=== PATIENT | female | born 1955 | race Caucasian/White ===

== ENCOUNTER 2019-07-15 10:11 | Observation (INO) | payer MEDICAID, SELFPAY ==
[2019-07-15 10:13] VITALS: BP 148/80; PULSE 69; RESP 18; TEMP 36.7; O2SAT 98; BMI 28.8
--- NOTE | 2019-07-15 10:32 | XRR_ITS ---
PROCEDURE INFORMATION: Exam: XR Chest, 1 View Exam date and time: 07/15/2019 10:54 AM Age: 63 years old Clinical indication: Shortness of breath; Type not specified; Patient HX: SOB, chest pains x 2 days; Additional info: Dyspnea chest pain TECHNIQUE: Imaging protocol: XR of the chest Views: 1 view. COMPARISON: CR Chest 1 [place] [id number] 03/16/2019 1:07 PM FINDINGS: Lungs: Mild interstitial prominence without acute airspace disease. Pleural space: No pleural effusion. Heart/Mediastinum: Cardiac silhouette upper limits of normal. Diaphragm: Asymmetric elevation of the right hemidiaphragm. Vasculature: Ectasia of the thoracic aorta. Bones/joints: Mild scoliosis. XR/XR chest 1V portable [id number] IMPRESSION: No acute airspace or pleural disease.
--- NOTE | 2019-07-15 10:32 | CT_ITS ---
WS: [id number] CT HEAD NONCONTRAST HISTORY: Altered mental status TECHNIQUE: Contiguous axial imaging performed through the brain in 2.5 mm imaging. Bone and soft tiss ue windows. Sagittal and coronal reformats reviewed. All CT scans at [facility] use at ast one of these dose optimization techniques: automated exposure control; mA and/or kV adjustment pe r patient size (includes targeted exams where dose is matched to clinical indication); or iterative r econstruction. DLP: 734.47 mGy.cm COMPARISON: 11/09/2015 and 12/02/2012 No acute intracranial hemorrhage, midline shift or mass effect. Mild atrophy and areas of decreased attenuation are stable in the periventricular and white matter di stribution. No acute area of sulcal effacement or prior recent infarct. Ventricles: Ventricles continue to be mildly dilated as on the prior study. No significant progressi on of disease. As compared to 12/02/2012 there has been a slight progression in the ventriculomegaly. Paranasal sinuses: As visualized are clear. Mastoid air cells: Well pneumatized. Calvarium and scalp: Skull is intact with no soft tissue edema or swelling. CT/CT head wo con* [id number] IMPRESSION: 1. Mild atrophy and chronic microvascular ischemic disease is stable. 2. Mild diffuse ventriculomegaly. Stable since 11/09/2015 and mild progression since 12/02/2012.
--- NOTE | 2019-07-15 10:33 | ECG_ITS ---
Measurements Intervals [place] Rate: 65 P: 0 NH: 171 QRS: 8 QRSD: 97 T: 21 QT: 480 QTc: 500 SINUS RHYTHM PROLONGED QT INTERVAL Compared to ECG 03/16/2019 12:57:30 Prolonged QT interval now present Electronically Signed On 07-15-2019 20:26:13 DISPUTE RESOLUTION ANALYST by Anne Marie Musa M.D. [id number]
[2019-07-15 10:43] LABS: Basophils # 0.1 10^3/uL (0.0-0.1); Basophils % 0.6 %; Eosinophils # 0.3 10^3/uL (0.0-0.8); Eosinophils % 2.9 %; Hematocrit 33.7 % (37.0-47.0); Hemoglobin 10.5 g/dL (11.5-15.3); Lymphocytes # 4.2 10^3/uL (0.8-4.8); Lymphocytes % 40.6 %; Mean Corpuscular HGB Conc 31.2 g/dL (30.0-36.0); Mean Corpuscular Hemoglobin 27.1 pg (28.0-34.0); Mean Corpuscular Volume 86.9 fL (81-99); Mean Platelet Volume 11.4 fL (7.4-10.4); Monocytes % 9.8 %; Neutrophils # 4.7 10^3/uL (1.8-7.7); Neutrophils % 45.7 %; Nucleated Red Blood Cells % 0 %; Platelet Count 232 10^3/cmm (130-400); Red Blood Count 3.88 10^6/uL (4.1-5.3); White Blood Count 10.2 10^3/uL (4.0-10.0)
[2019-07-15 10:47] LABS: INR 0.95 (0.8-1.2)
[2019-07-15 10:48] LABS: Partial Thromboplastin Time 29.6 SECONDS (23.9-36.7)
--- NOTE | 2019-07-15 10:51 | ED_ITS ---
HPI - Chest Pain General: Chief Complaint: Chest Pain Stated Complaint: headache.dizziness,sob Time Seen by Provider: 07/15/19 10:13 History of Present Illness: HPI narrative: 63-year-old female comes in generally complaint of not feeling well she has had some diarrhea and been nauseous she denies any hematochezia melena hematemesis or coffee-ground emesis not actually thrown up but she has had a lot of loose stools. She denies dysuria urgency or frequency she has had some right upper quadrant pain and epigastric pain at times radiates up into the chest is not associated with increased activity. She has had some nonproductive cough and very slight jose rtness of breath. Additionally states she is felt very dizzy and at times she is actually had some hallucinations she sees what she describes as critters climbing up the le and on the floor. She denies ever having this before. 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 Onset (ago): day(s) (2) Timing of current episode: episodic Prior episodes: No Onset: during rest and during exertion Pain location: epigastric Pain radiation: none Severity: moderate Quality: aching and heaviness Relieving factors: nothing Exacerbating factors: exertion Context: recent illness Associated symptoms: Reports abdominal pain, dyspnea, nausea and other (Diarrhea); Deny fever(s) or vomiting Review of Systems Const: Reports: chills, body aches, fatigue and malaise; Denies: fever or change in appetite ENMT: Denies: throat pain, ear pain, nasal discharge or nasal congestion Card: Reports: chest pain and shortness of breath on exertion; Denies: edema or shortness of breath when lying down Resp: Reports: shortness of breath and non-productive cough GI: Reports: abdominal pain and nausea; Denies: vomiting, vomiting blood, coffee grounds in vomit, blood in stool or black tarry stool : Denies: flank pain, difficulty urinating, painful urination, urinary frequency or urinary urgency Skin/Breast: Denies: rash or itching PFSH ED PFSH: Statuses (acute, chronic, etc) shown below reflect problem list status as previously entered and may not be historically accurate Medical History Coronary artery disease (Acute) Surgical History History of appendectomy (Acute) History of cholecystectomy (Acute) History of hysterectomy (Acute) S/P percutaneous transluminal angioplasty ([facility]) with stent placement (Acute) Family History Other CAD (coronary artery disease) Social History Smoking and tobacco status: current every day smoker Alcohol intake: never Substance/Drug Use: never Physical Exam Const: COMMON NORMALS: no apparent distress GENERAL APPEARANCE: cooperative and comfortable ORIENTATION/CONSCIOUSNESS: Yes awake, Yes oriented to person, Yes oriented to place and Yes oriented to time HENMT: COMMON NORMALS: normocephalic, head/scalp atraumatic, hearing grossly normal bilaterally, external ears normal, EAC's normal, TM's normal bilaterally, nasal mucous membranes and turbinates normal, moist oral mucous membranes and oropharynx normal HEAD & SCALP: normocephalic and atraumatic NOSE: nasal mucous membranes and turbinates normal EXTERNAL EAR: Yes external ears normal EXTERNAL AUDITORY CANAL: EAC's normal TYMPANIC MEMBRANE: TM's normal bilaterally Eye: COMMON NORMALS: PERRL, EOMs intact bilaterally, conjunctivae normal and no scleral icterus CONJUNCTIVA: Yes conjunctivae normal PUPIL: Yes PERRL Neck/C-Spine: COMMON NORMALS: full ROM, no lymphadenopathy, supple and no JVD Lymph: LYMPHATIC: no lymphadenopathy noted and no lymphedema noted Resp: COMMON NORMALS: normal respiratory effort, no retractions, no use of accessory muscles and clear to auscultation bilaterally AUSCULTATION: clear to auscultation bilaterally Cardio: COMMON NORMALS: no JVD, regular rate, regular rhythm and no murmurs RATE: regular rate RHYTHM: regular rhythm GI: COMMON NORMALS: no hepatosplenomegaly AUSCULTATION: Yes normoactive bowel sounds PALPATION: Yes tender Details: RUQ and other (Epigastrium), No guarding and Yes no hepatosplenomegaly Extremity: COMMON NORMALS: normal to inspection, normal capillary refill, no clubbing, cyanosis or edema, no calf tenderness and no pedal edema Neuro: SENSORIUM/ORIENTATION: Yes oriented to person, Yes oriented to place and Yes oriented to time Skin: COMMON NORMALS: no rashes or lesions noted GENERAL SKIN EXAM: no rashes or lesions noted Course ED course: Patient has mild anemia some altered mental status some vague chest discomfort I think it would be good for her to be observed overnight to see if we can improve some of her mental status with adequate hydration. Discussed Dr. Loya will put her on observation Vital Signs: Vital signs: Vital Signs Temperature 98.0 F 07/16/19 11:20 Pulse Rate 61 07/16/19 11:20 Respiratory Rate 21 H 07/16/19 11:20 Blood Pressure 139/97 07/16/19 11:20 Pulse Oximetry 96 07/16/19 11:20 MDM - Chest Pain Lab Data: Labs: Lab Results 07/15/19 07/15/19 07/15/19 Range/Units 09:45 09:45 09:45 WBC 10.2 H (4.0-10.0) 10^3/ uL RBC 3.88 L (4.1-5.3) 10^6/u L Hgb 10.5 L (11.5-15.3) g/dL Hct 33.7 L (37.0-47.0) % MCV 86.9 (81-99) fL MCH 27.1 L (28.0-34.0) pg MCHC 31.2 (30.0-36.0) g/dL RDW 13.0 (12.1-15.1) % Plt Count 232 (130-400) 10^3/c mm MPV 11.4 H (7.4-10.4) fL Neut % (Auto) 45.7 % Lymph % (Auto) 40.6 % [place] % (Auto) 9.8 % Eos % (Auto) 2.9 % Baso % (Auto) 0.6 % Neut # (Auto) 4.7 (1.8-7.7) 10^3/u L Lymph # (Auto) 4.2 (0.8-4.8) 10^3/u L [place] # (Auto) 1.0 H (0.2-0.9) 10^3/u L Eos # (Auto) 0.3 (0.0-0.8) 10^3/u L Baso # (Auto) 0.1 (0.0-0.1) 10^3/u L Nucleated RBC % (a uto) 0 % Nucleated RBCs # 0.0 /100WBC PT 12.90 (10.5-13.3) SECO NDS INR 0.95 (0.8-1.2) APTT 29.6 (23.9-36.7) SECO NDS Specimen Type Sample Site ABG pH (7.35-7.45) ABG pCO2 (35-45) mmHg ABG pO2 (80.0-100.0) mmH g ABG HCO3 (22-26) mmol/L ABG O2 Saturation ABG Base Excess (-2.0-2.0) mmol/ L Damian Test A-a O2 Gradient (5-10) mmHg Hematocrit (37-47) % Hgb O2 Saturation (95-100) % Carboxyhemoglobin (0.4-20.1) %THgb Methemoglobin (0.4-1.5) % Total Hemoglobin (12-16) g/dL Ionized Calcium (1.1-1.4) mmol/L O2 Delivery Device FiO2 % Business Broker ID Sodium 128 L (136-145) mmol/L Potassium 3.3 L (3.5-5.1) mmol/L Chloride 91 L (98-107) mmol/L Carbon Dioxide 24 (22-29) mmol/L Anion Gap 16.3 (5-19) BUN 13 (8-23) mg/dL Creatinine 0.9 (0.5-0.9) mg/dL GFR Calculation 63.0 L (90-130) mL/min Glucose 422 H (74-106) mg/dL Calcium 9.0 (8.8-10.2) mg/Dl Phosphorus (2.5-4.5) mg/dL Magnesium (1.7-2.3) mg/dL Total Bilirubin 0.2 (0.15-1.2) mg/dL AST 25 (0-32) U/L ALT 29 (0-33) U/L Alkaline Phosphata se 74 (35-105) IU/L Troponin T Baselin e (0-10) ng/mL Troponin T 120 Min [place] (0-10) ng/mL Delta Troponin T (0-10) ABS# Total Protein 8.3 (6.6-8.7) g/dL Albumin 3.7 (3.5-5.2) g/dL Globulin 4.6 (1.3-4.6) g/dL Lipase 76 H (13-60) U/L TSH (0.27-4.20) uIU/ mL Urine Color (Yellow) Urine Appearance (CLEAR) Urine pH (5-7) Ur Specific Gravit y (1.005-1.030) Urine Protein (Negative) Urine Glucose (UA) (Normal) Urine Ketones (Negative) Urine Occult Blood (Negative) Urine Nitrate (Negative) Urine Bilirubin (NEGATIVE) Urine Urobilinogen (Negative) mg/dL Ur Leukocyte Liset ase (Negative) Salicylates < 0.3 L (3-10) mg/dL Urine Opiates Scre en (Negative) ng/mL Acetaminophen < 5.0 L (10-30) ug/mL Ur Barbiturates Sc reen (Negative) ng/mL Ur Phencyclidine S crn (Negative) ng/mL Ur Amphetamines Sc reen (Negative) ng/mL U Benzodiazepines Scrn (Negative) ng/mL Urine Cocaine Scre en (Negative) ng/mL U Marijuana (THC) Screen (Negative) ng/mL Ethyl Alcohol < 10 (0-10) mg/dL 07/15/19 07/15/19 07/15/19 Range/Units 09:45 10:48 10:48 WBC (4.0-10.0) 10^3/ uL RBC (4.1-5.3) 10^6/u L Hgb (11.5-15.3) g/dL Hct (37.0-47.0) % MCV (81-99) fL MCH (28.0-34.0) pg MCHC (30.0-36.0) g/dL RDW (12.1-15.1) % Plt Count (130-400) 10^3/c mm MPV (7.4-10.4) fL Neut % (Auto) % Lymph % (Auto) % [place] % (Auto) % Eos % (Auto) % Baso % (Auto) % Neut # (Auto) (1.8-7.7) 10^3/u L Lymph # (Auto) (0.8-4.8) 10^3/u L [place] # (Auto) (0.2-0.9) 10^3/u L Eos # (Auto) (0.0-0.8) 10^3/u L Baso # (Auto) (0.0-0.1) 10^3/u L Nucleated RBC % (a uto) % Nucleated RBCs # /100WBC PT (10.5-13.3) SECO NDS INR (0.8-1.2) APTT (23.9-36.7) SECO NDS Specimen Type Sample Site ABG pH (7.35-7.45) ABG pCO2 (35-45) mmHg ABG pO2 (80.0-100.0) mmH g ABG HCO3 (22-26) mmol/L ABG O2 Saturation ABG Base Excess (-2.0-2.0) mmol/ L Damian Test A-a O2 Gradient (5-10) mmHg Hematocrit (37-47) % Hgb O2 Saturation (95-100) % Carboxyhemoglobin (0.4-20.1) %THgb Methemoglobin (0.4-1.5) % Total Hemoglobin (12-16) g/dL Ionized Calcium (1.1-1.4) mmol/L O2 Delivery Device FiO2 % Business Broker ID Sodium (136-145) mmol/L Potassium (3.5-5.1) mmol/L Chloride (98-107) mmol/L Carbon Dioxide (22-29) mmol/L Anion Gap (5-19) BUN (8-23) mg/dL Creatinine (0.5-0.9) mg/dL GFR Calculation (90-130) mL/min Glucose (74-106) mg/dL Calcium (8.8-10.2) mg/Dl Phosphorus (2.5-4.5) mg/dL Magnesium (1.7-2.3) mg/dL Total Bilirubin (0.15-1.2) mg/dL AST (0-32) U/L ALT (0-33) U/L Alkaline Phosphata se (35-105) IU/L Troponin T Baselin e 7 (0-10) ng/mL Troponin T 120 Min [place] (0-10) ng/mL Delta Troponin T (0-10) ABS# Total Protein (6.6-8.7) g/dL Albumin (3.5-5.2) g/dL Globulin (1.3-4.6) g/dL Lipase (13-60) U/L TSH (0.27-4.20) uIU/ mL Urine Color Yellow (Yellow) Urine Appearance Clear (CLEAR) Urine pH 6.5 (5-7) Ur Specific Gravit y 1.010 (1.005-1.030) Urine Protein Neg (Negative) Urine Glucose (UA) 4+ H (Normal) Urine Ketones Negative (Negative) Urine Occult Blood Neg (Negative) Urine Nitrate Negative (Negative) Urine Bilirubin Neg (NEGATIVE) Urine Urobilinogen Norm (Negative) mg/dL Ur Leukocyte Liset ase Negative (Negative) Salicylates (3-10) mg/dL Urine Opiates Scre en Negative (Negative) ng/mL Acetaminophen (10-30) ug/mL Ur Barbiturates Sc reen Negative (Negative) ng/mL Ur Phencyclidine S crn Negative (Negative) ng/mL Ur Amphetamines Sc reen Negative (Negative) ng/mL U Benzodiazepines Scrn Negative (Negative) ng/mL Urine Cocaine Scre en Negative (Negative) ng/mL U Marijuana (THC) Screen Negative (Negative) ng/mL Ethyl Alcohol (0-10) mg/dL 07/15/19 07/15/19 07/15/19 Range/Units 11:30 11:30 12:06 WBC (4.0-10.0) 10^3/ uL RBC (4.1-5.3) 10^6/u L Hgb (11.5-15.3) g/dL Hct (37.0-47.0) % MCV (81-99) fL MCH (28.0-34.0) pg MCHC (30.0-36.0) g/dL RDW (12.1-15.1) % Plt Count (130-400) 10^3/c mm MPV (7.4-10.4) fL Neut % (Auto) % Lymph % (Auto) % [place] % (Auto) % Eos % (Auto) % Baso % (Auto) % Neut # (Auto) (1.8-7.7) 10^3/u L Lymph # (Auto) (0.8-4.8) 10^3/u L [place] # (Auto) (0.2-0.9) 10^3/u L Eos # (Auto) (0.0-0.8) 10^3/u L Baso # (Auto) (0.0-0.1) 10^3/u L Nucleated RBC % (a uto) % Nucleated RBCs # /100WBC PT (10.5-13.3) SECO NDS INR (0.8-1.2) APTT (23.9-36.7) SECO NDS Specimen Type Arterial Sample Site Radial, left ABG pH 7.42 (7.35-7.45) ABG pCO2 36.1 (35-45) mmHg ABG pO2 81.5 (80.0-100.0) mmH g ABG HCO3 23.6 (22-26) mmol/L ABG O2 Saturation 96.2 ABG Base Excess -0.6 (-2.0-2.0) mmol/ L Damian Test Pos A-a O2 Gradient 22.6 H (5-10) mmHg Hematocrit 34.7 L (37-47) % Hgb O2 Saturation 95.0 (95-100) % Carboxyhemoglobin 0.7 (0.4-20.1) %THgb Methemoglobin 0.6 (0.4-1.5) % Total Hemoglobin 11.3 L (12-16) g/dL Ionized Calcium 1.1 (1.1-1.4) mmol/L O2 Delivery Device Room air FiO2 21.0 % Business Broker ID duner Sodium 137.0 (136-145) mmol/L Potassium 3.8 (3.5-5.1) mmol/L Chloride (98-107) mmol/L Carbon Dioxide (22-29) mmol/L Anion Gap (5-19) BUN (8-23) mg/dL Creatinine (0.5-0.9) mg/dL GFR Calculation (90-130) mL/min Glucose 305.0 H (74-106) mg/dL Calcium (8.8-10.2) mg/Dl Phosphorus 2.5 (2.5-4.5) mg/dL Magnesium 1.8 (1.7-2.3) mg/dL Total Bilirubin (0.15-1.2) mg/dL AST (0-32) U/L ALT (0-33) U/L Alkaline Phosphata se (35-105) IU/L Troponin T Baselin e (0-10) ng/mL Troponin T 120 Min [place] 6.18 (0-10) ng/mL Delta Troponin T -0.82 L (0-10) ABS# Total Protein (6.6-8.7) g/dL Albumin (3.5-5.2) g/dL Globulin (1.3-4.6) g/dL Lipase (13-60) U/L TSH 3.47 (0.27-4.20) uIU/ mL Urine Color (Yellow) Urine Appearance (CLEAR) Urine pH (5-7) Ur Specific Gravit y (1.005-1.030) Urine Protein (Negative) Urine Glucose (UA) (Normal) Urine Ketones (Negative) Urine Occult Blood (Negative) Urine Nitrate (Negative) Urine Bilirubin (NEGATIVE) Urine Urobilinogen (Negative) mg/dL Ur Leukocyte Liset ase (Negative) Salicylates (3-10) mg/dL Urine Opiates Scre en (Negative) ng/mL Acetaminophen (10-30) ug/mL Ur Barbiturates Sc reen (Negative) ng/mL Ur Phencyclidine S crn (Negative) ng/mL Ur Amphetamines Sc reen (Negative) ng/mL U Benzodiazepines Scrn (Negative) ng/mL Urine Cocaine Scre en (Negative) ng/mL U Marijuana (THC) Screen (Negative) ng/mL Ethyl Alcohol (0-10) mg/dL Imaging Data^: CXR: Radiologist's impression: Exam: XR Chest, 1 View Exam date and time: 07/15/2019 10:54 AM Age: 63 years old Clinical indication: Shortness of breath; Type not specified; Patient HX: SOB, chest pains x 2 days; Additional info: Dyspnea chest pain TECHNIQUE: Imaging protocol: XR of the chest Views: 1 view. COMPARISON: CR Chest 1 [place] [id number] 03/16/2019 1:07 PM FINDINGS: Lungs: Mild interstitial prominence without acute airspace disease. Pleural space: No pleural effusion. Heart/Mediastinum: Cardiac silhouette upper limits of normal. Diaphragm: Asymmetric elevation of the right hemidiaphragm. Vasculature: Ectasia of the thoracic aorta. Bones/joints: Mild scoliosis. XR/XR chest 1V portable [id number] IMPRESSION: No acute airspace or pleural disease. Dictated By:Fortino Michelle MD Discharge Plan Discharge Patient Disposition: Admitted As Inpatient Admit Provider: Ollie Aazr Clinical Impression: AMS (altered mental status), Hypertension, COPD (chronic obstructive pulmonary disease), Depression with anxiety, Type 2 diabetes mellitus, Atypical chest pain Condition: Stable Interventions: ED Discharge Assessment Last Done: 07/15/19 17:52 Discharge Date/Time: 07/15/19 18:46 Coding Level of Care Code ED Biscuit Maker for Chg Fwd Exam Problem Focused
[2019-07-15 10:55] LABS: Alanine Aminotransferase 29 U/L (0-33); Albumin Level 3.7 g/dL (3.5-5.2); Alkaline Phosphatase 74 IU/L (35-105); Anion Gap 16.3 (5-19); Aspartate Amino Transferase 25 U/L (0-32); Blood Urea Nitrogen 13 mg/dL (8-23); Carbon Dioxide 24 mmol/L (22-29); Chloride 91 mmol/L (98-107); Globulin 4.6 g/dL (1.3-4.6); Glucose 422 mg/dL (74-106); Lipase 76 U/L (13-60); Potassium 3.3 mmol/L (3.5-5.1); Sodium 128 mmol/L (136-145); Total Bilirubin 0.2 mg/dL (0.15-1.2); Total Protein 8.3 g/dL (6.6-8.7)
[2019-07-15 10:56] LABS: Add Urine Microscopic? NO
[2019-07-15 10:57] LABS: Troponin(5th) Baseline 7 ng/mL (0-10)
[2019-07-15 11:03] LABS: Acetaminophen < 5.0 ug/mL (10-30); Alcohol Level < 10 mg/dL (0-10); Salicylate < 0.3 mg/dL (3-10)
[2019-07-15 11:26] LABS: Bilirubin Urine Neg (NEGATIVE); Blood Urine Neg (Negative); Glucose Urine UA 4+ (Normal); Ketones Urine Negative (Negative); Leukocyte Esterase Urine Negative (Negative); Nitrate Urine Negative (Negative); Protein Urine Neg (Negative); Urine Appearance Clear (CLEAR); Urine Color Yellow (Yellow); Urobilinogen Urine Norm (Negative); pH Urine 6.5 (5-7)
[2019-07-15 12:16] LABS: ABG PCO2 36.1 mmHg (35-45); ABG PH Result 7.42 (7.35-7.45); Alveolar-Arterial Oxygen Gradi 22.6 mmHg (5-10); Arterial Blood Gas Hematocrit 34.7 % (37-47); Base Excess ABG -0.6 mmol/L (-2.0-2.0); Blood Gas Allen Test Pos; Blood Gas Sample Site Radial, left; Blood Gas Sample Type Arterial; Carboxyhemoglobin 0.7 %THgb (0.4-20.1); HCO3 ABG 23.6 mmol/L (22-26); Ionized Calcium Level - ABG 1.1 mmol/L (1.1-1.4); Methemoglobin 0.6 % (0.4-1.5); Oxygen Device ROOM AIR; Oxygen Saturation ABG 96.2; PO2 ABG 81.5 mmHg (80.0-100.0); Potassium Level - ABG 3.8 mmol/L (3.5-5.0); Total Hemoglobin 11.3 g/dL (12-16)
--- NOTE | 2019-07-15 12:33 | ECG_ITS ---
Measurements Intervals [place] Rate: 63 P: 7 ND: 160 QRS: 24 QRSD: 109 T: 44 QT: 472 QTc: 483 SINUS RHYTHM PROLONGED QT INTERVAL Compared to ECG 03/16/2019 12:57:30 Prolonged QT interval now present Electronically Signed On 07-15-2019 20:35:29 VEHICLE SAFETY INSPECTOR by Anne Marie Musa M.D. [id number]
[2019-07-15 12:53] LABS: Amphetamines Screen Urine Negative (Negative); Barbiturates Screen Urine Negative (Negative); Benzodiazepines Screen Urine Negative (Negative)
[2019-07-15 12:54] LABS: Cocaine Screen Urine Negative (Negative); Opiate Screen Urine Negative (Negative); PCP Screen Urine Negative (Negative)
[2019-07-15 12:55] LABS: THC Screen Urine Negative (Negative)
[2019-07-15 14:01] LABS: Troponin 5 2HR 6.18 ng/mL (0-10); Troponin 5 2HR Delta -0.82 ABS# (0-10)
[2019-07-15] MEDS: insulin regular-human 100 units/1 mL 5 UNIT SUBCUT (14:13)
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
--- NOTE | 2019-07-15 16:33 | ECG_ITS ---
Measurements Intervals [place] Rate: 67 P: 25 [place]: 168 QRS: 25 QRSD: 101 T: 44 QT: 443 QTc: 470 SINUS RHYTHM Compared to ECG 03/16/2019 12:57:30 No significant changes Electronically Signed On 07-15-2019 20:36:02 DOOR PULLER by Anne Marie Musa M.D. [id number]
[2019-07-15 16:34] LABS: Magnesium 1.8 mg/dL (1.7-2.3); Phosphorus 2.5 mg/dL (2.5-4.5); Thyroid Stimulating Hormone 3.47 uIU/mL (0.27-4.20)
[2019-07-15 17:04] LABS: Estmated Average Glucose 272; Hemoglobin A1C 11.1 % (4.0-6.0)
[2019-07-15 17:15] LABS: Troponin 5 6HR 6.86 ng/L (0-10)
[2019-07-15 17:31] LABS: Troponin 5 6HR Delta -0.14 ng/L (0-12)
[2019-07-15 17:52] VITALS: BP 146/82; PULSE 92; RESP 16; O2SAT 95
--- NOTE | 2019-07-15 19:01 | PC.NURSE ---
Admitted to room 111-1 from ED via wheelchair. Oriented to room. Changed into gown. PIID to left ac intact with no redness or edema noted at site. Denies complaints at this time. Assessment completed. Patient up to bathroom without assist and back to bed. Gait steady. Will monitor.
[2019-07-15 19:11] VITALS: BP 135/87; PULSE 67; RESP 15; TEMP 36.4; O2SAT 97
[2019-07-15 21:04] LABS: Glucose Point of Care 321 mg/dL (70-110)
[2019-07-15] MEDS: ropinirole 1 mg Tablet PO (22:30)
[2019-07-15] MEDS: sodium chloride 0.9% 1,000 ML 125 ML IV (22:30)
[2019-07-15] MEDS: metoprolol tartrate 25 mg Tablet PO (22:31)
[2019-07-15] MEDS: trazodone 100 mg Tablet PO (22:31)
[2019-07-15] MEDS: enoxaparin 40 mg/0.4 mL Syringe SUBCUT (22:31)
--- NOTE | 2019-07-15 23:30 | PC.NURSE ---
Henrique held per doctor's order. Patient will be NPO, except for water, after MN for stress test in am. Patient cleaned up secondary to her pulling IV apart. IV flushed without difficulty. Will monitor.
[2019-07-16] VITALS (7 sets, daily range): BP systolic 105–158; BP diastolic 65–97; PULSE 56–63; RESP 16–23; TEMP 36.6–36.8; O2SAT 93–97
--- NOTE | 2019-07-16 05:31 | PC.NURSE ---
LE: Ball of right foot with abrasions noted. States, I was scraping this area when my knife slipped and caused those. This nurse explained to patient about her being a diabetic and watching for sores/wounds to feet. Oh, I know.....my nephew just had 2 toes cut off cause of his diabetes. Will relay to oncoming shift. Will monitor.
[2019-07-16 05:46] LABS: Basophils # 0.1 10^3/uL (0.0-0.1); Basophils % 0.9 %; Eosinophils # 0.4 10^3/uL (0.0-0.8); Eosinophils % 4.4 %; Hematocrit 32.5 % (37.0-47.0); Hemoglobin 10.2 g/dL (11.5-15.3); Lymphocytes # 4.1 10^3/uL (0.8-4.8); Mean Corpuscular HGB Conc 31.4 g/dL (30.0-36.0); Mean Platelet Volume 11.4 fL (7.4-10.4); Monocytes # 0.9 10^3/uL (0.2-0.9); Monocytes % 9.9 %; Neutrophils # 3.6 10^3/uL (1.8-7.7); Neutrophils % 39.5 %; Nucleated Red Blood Cells % 0 %; Platelet Count 211 10^3/cmm (130-400); Red Blood Count 3.78 10^6/uL (4.1-5.3); Red Cell Distribution Width 12.9 % (12.1-15.1); White Blood Count 9.1 10^3/uL (4.0-10.0)
--- NOTE | 2019-07-16 06:00 | ECG_ITS ---
NAME OF STUDY: LEXISCAN SESTAMIBI STRESS TEST INDICATION: Chest Pain, PROCEDURE: At the baseline, the EKG revealed sinus bradycardia with a poor R wave progression. Normal ST-T's. The baseline blood pressure was 164/92 mm Hg with a heart rate of 57 beats/min. Lexiscan was infused over a period of 20 seconds. A total of 0.4 milligrams of Lexiscan was infused. The stress phase was continued for a total of 5 minutes. Heart rate at the end of the stress phase was 67 with a blood pressure 159/90. The EKG at the peak infusion revealed no significant changes. Sestamibi was injected 20 seconds after the Lexiscan infusion. Blood pressure at the end of the recovery phase was 158/93 with a heart rate of 80 per minute. CONCLUSION: 1. No significant EKG changes with the LexiScan infusion 2. No LexiScan induced chest pain or cardiac arrhythmia 3. Normal blood pressure and heart rate response 4. Sestamibi/sestamibi perfusion scan pending; see separate report. Electronically Signed On 07-17-2019 13:51:40 RIGGER HELPER by Anne Marie Musa M.D. [email or web address]
[2019-07-16 06:14] LABS: Alanine Aminotransferase 22 U/L (0-33); Albumin Level 3.2 g/dL (3.5-5.2); Alkaline Phosphatase 60 IU/L (35-105); Anion Gap 14.9 (5-19); Aspartate Amino Transferase 22 U/L (0-32); Blood Urea Nitrogen 11 mg/dL (8-23); Calcium 9.2 mg/Dl (8.8-10.2); Carbon Dioxide 23 mmol/L (22-29); Chloride 102 mmol/L (98-107); Chol HDL Ratio 5.17 mg/dL (0.0-4.40); Cholesterol 155 mg/dL (0-200); Globulin 3.7 g/dL (1.3-4.6); Glomerular Filtration Rate 84.2 mL/min (90-130); Glucose 200 mg/dL (74-106); HDL Cholesterol 30 mg/dL (60-100); Magnesium 1.9 mg/dL (1.7-2.3); Potassium 3.9 mmol/L (3.5-5.1); Sodium 136 mmol/L (136-145); Total Bilirubin 0.2 mg/dL (0.15-1.2); Total Protein 6.9 g/dL (6.6-8.7); Triglycerides 441 mg/dL (0-150)
[2019-07-16 06:33] LABS: Glucose Point of Care 186 mg/dL (70-110)
--- NOTE | 2019-07-16 06:40 | NMCV_ITS ---
NM elder perf SPECT r/s* [id number] Means, Luh Age: 63 Gender: F : 1955 Exam Date: 07/16/2019 07:56 Ordering Phys: Ollie Azar MD Technologist: CINTIA Salazar Exam Location: [facility] Indications: Headache, Dizziness, S.O.B. STRESS TEST Please see separate stress test report in [facility] for full findings IMAGE PROTOCOL Rest/Stress 1 Lexiscan Day Radiopharmaceutical Dose (mCi) Administration Site Administered by Rest: Tc-99m 10.1 IV CINTIA Salazar Sestamibi Stress:Tc-99m 30.3 IV CINTIA Salazar Sestamibi Rest: 16-Jul-2019 60 Discovery 630 Stress: 16-Jul-2019 60 Discovery 630 0.4mg Lexiscan. Images obtained in supine and prone position. SPECT RESULTS Technical Quality: Good Raw Data Analysis: Normal, Breast attenuation, Soft tissue attenuation. 44F Chest Wall Image Corrections: No attenuation or motion correction applied Summed Stress Score: 0 Summed Rest Score: 1 Summed Difference Score: 0 PERFUSION FINDINGS Fairly uniform myocardial tracer uptake. No significant perfusion normalities were noted FUNCTIONAL RESULTS (calculated via Gated SPECT) Stress Image LV EF (%): 85 Stress EDV (mL):73 TID: 0.87 Stress ESV (mL):11 FUNCTIONAL FINDINGS: Segmental wall motion analysis revealing no gross wall motion normalities IMPRESSIONS 1. Unremarkable myocardial perfusion imaging 2. Normal LV ejection fraction of 85%. 3. LV wall motion analysis revealing no gross wall motion abnormalities. 4. Normal LV volume. No significant coronary ischemia, based on the above findings. Compared to the study from 01/29/2018, there may not be a significant change Dr Anne Marie Musa MD [facility] (Electronically Signed) Final Date: 16 July 2019 12:57 S
[2019-07-16 06:44] LABS: Procalcitonin 0.04 ng/mL (0-0.8)
[2019-07-16 06:54] LABS: LDL Cholesterol Direct 80 mg/dL (0-100)
--- NOTE | 2019-07-16 07:00 | USCV_ITS ---
Means, Luh Age: 63 Gender: F : 1955 Exam Date: 07/16/2019 06:36 Ordering Phys: Ollie Azar MD Technologist: Arpan Sosa [place] [facility] [place]: CHEST PAIN BP: 132 / 75 HR: 56 Rhythm: Sinus Technical Quality: Fair MEASUREMENTS (Male / Female) Normal Values 2D ECHO LV Diastolic Diameter PLAX 4.4 cm 4.2 - 5.9 / 3.9 - 5.3 cm LV Systolic Diameter PLAX 3.0 cm IVS Diastolic Thickness 0.9 cm 0.6 - 1.0 / 0.6 - 0.9 cm IVS Systolic Thickness 1.2 cm LVPW Diastolic Thickness 1.1 cm 0.6 - 1.0 / 0.6 - 0.9 cm LVPW Systolic Thickness 1.2 cm LVOT Diameter 2.1 cm LV Ejection Fraction 2D Teich 57.6 % LA Diameter 4.2 cm LA Width 3.7 cm LA Height 5.8 cm RA Width 4.6 cm RA Height 3.4 cm Aorta at Sinotubular Diameter 2.5 cm M-MODE LV Diastolic Diameter MM 5.5 cm 4.2 - 5.9 / 3.9 - 5.3 cm LV Systolic Diameter MM 4.0 cm LV Ejection Fraction MM Teich 53.1 % IVS Diastolic Thickness MM 1.9 cm 0.6 - 1.0 / 0.6 - 0.9 cm IVS Systolic Thickness MM 1.7 cm LVPW Diastolic Thickness MM 1.6 cm 0.6 - 1.0 / 0.6 - 0.9 cm LVPW Systolic Thickness MM 1.8 cm Aortic Annulus Diameter 0.0 cm MV E Point Septal Separation 1.1 cm DOPPLER AV Peak Velocity 146.0 cm/s LVOT Peak Velocity 123.0 cm/s AV Area Cont Eq vti 3.0 cm squared AV Area Cont Eq pk 2.9 cm squared MV Area PHT 3.0 cm squared Mitral E to A Ratio 0.8 MV E' Velocity 86.0 cm/s TR Peak Velocity 152.0 cm/s TR Peak Gradient 9.3 mmHg TV Peak E Velocity 105.0 cm/s Right Atrial Pressure 3.0 mmHg Pulmonary Artery Systolic Pressu 12.2 mmHg FINDINGS Left Ventricle Normal left ventricular size and systolic function, EF 55% . No regional wall motion abnormalities. Mild left ventricular hypertrophy. Grade I/IV diastolic dysfunction (abnormal relaxation filling pattern), normal to mildly elevated filling pressures. Right Ventricle Normal right ventricular size and systolic function. Right Atrium Normal right atrial size. Left Atrium Normal left atrial size. Mitral Valve Thickened mitral valve. Moderate mitral annular calcification. Aortic Valve Thickened aortic valve. Trace to mild aortic valve regurgitation. Tricuspid Valve No gross abnormalities noted Pulmonic Valve Pulmonic valve not well visualized. Pericardium No pericardial effusion. Aorta Normal aortic annulus size. CONCLUSIONS Normal left ventricular size and systolic function, EF 55% . No regional wall motion abnormalities. Mild left ventricular hypertrophy. Grade I/IV diastolic dysfunction (abnormal relaxation filling pattern), normal to mildly elevated filling pressures. Thickened mitral valve. Moderate mitral annular calcification. Thickened aortic valve. Trace to mild aortic valve regurgitation. There is no pericardial effusion. There are no intracardiac masses. Compared to the study from 06/14/2017, there is improvement in the LV ejection fraction Dr Anne Marie Musa MD [facility] (Electronically Signed) Final Date: 16 July 2019 13:33 S
[2019-07-16] MEDS: regadenoson 0.4 Mg/5 ml Syringe IVP (08:55)
[2019-07-16] MEDS: ondansetron 2 mg/ML SDV 2 mL 4 MG IVP (09:00)
[2019-07-16] MEDS: aminophylline 25 mg/mL SDV 10 mL IVP (09:04)
[2019-07-16] MEDS: fluticasone nasal spray 16gm Btl 2 SPRAY INTRANASAL (10:22)
[2019-07-16] MEDS: isosorbide mononitrate ER 30 mg Tablet PO (10:23)
[2019-07-16] MEDS: metoprolol tartrate 25 mg Tablet PO (10:23)
[2019-07-16] MEDS: aspirin 81 mg EC Tablet PO (10:23)
[2019-07-16] MEDS: pantoprazole DR 40 mg Tablet PO (10:23)
[2019-07-16] MEDS: bumetanide 1 mg Tablet PO (10:23)
[2019-07-16 11:35] LABS: Glucose Point of Care 375 mg/dL (70-110)
[2019-07-16] MEDS: sodium chloride 0.9% 1,000 ML 125 ML IV (12:39)
--- NOTE | 2019-07-16 13:12 | PC.CHAP ---
Pastoral Care Encounter/Spiritual Assessment Type of Contact [] Declined prototype assembler electronics visit [] Patient/Family/Request visit [] Outpatient visit [] Follow-up visit [] Physician referral [] Code/Alert [x] Routine visit [] Staff referral [] Actively dying [] Patient sleeping [] Family support [] [] Out of room [] Palliative care [] [] Receiving care in room [] Pre-surgical visit [] Trauma [] Long length of stay [] ICU visit [] Other: Relational/Emotional Strength [] Patient feels connected with others/family/visitors/staff [] Distress [] Loneliness/isolation [] Abandonment Spirituality of Patient [x] Person of Mahogany [x] Attends Hinduism of their Mahogany [x] Believes in Prayer [] Reads Bible or Temple materials [] There are Spiritual issues to be addressed Dental Aide Interventions [x Prayer [] Active listening [x] Non-anxious presence [] Spiritual/emotional support [] Crisis/trauma care [] Spiritual counseling [] Bereavement support [] Provided bereavement packet [] Provided Bible/devotional materials [] Provided toy/stuffed animal, coloring book to patient or family member [x] Completed spiritual assessment [] Provided Communion [] Anointing/[place] [] Salvation [] Other: Impact on Illness or Injury [] Angry [] Fearful [] Anxious [] Often cries [] Exhaustion [] Unable to work [] Unable to attend zoroastrian [] Unable to walk/stand [] Unable to read [] Unable to drive [] Unable to eat/drink [] Unable to sleep [] Unable to be with family [] Other: Summary Patient feeling a lot better now Time spent with patient 10min
--- NOTE | 2019-07-16 14:15 | P.DS_ITS ---
Discharge Providers Date of Admission: 07/15/19 14:14 Date of Discharge: 07/16/19 Attending Provider at Admission: Ollie Azar MD Attending Provider at Discharge: Ollie Azar MD Diagnoses at Discharge Discharge Diagnosis (1) Coronary artery disease: Status: Acute (2) Hypertension: Status: Acute (3) Hyperlipidemia: Status: Acute (4) Type 2 diabetes mellitus: Status: Acute (5) Prolonged QT interval: Status: Acute Reason for Visit Reason for Visit: Reason For Visit: headache.dizziness,sob Hospital Course Discharge Summary: Luh Ray is a 63 year old female with a past medical history of CAD status post stenting x3, history of chronic systolic heart failure secondary to ischemic cardiomyopathy ejection fraction 40% back May 2017, COPD, BRYN, CRISSY/BSO with chronic estrogen replacement therapy, hypertension, hypothyroidism, anxiety, depression who comes to the emergency room due to feelings of fatigue, malaise, chest pain, blurry vision. For her chest pain, patient had an ACS work-up, including unremarkable troponins, EKG showed no significant ST-T wave changes, had a stress test with a low probability of obstructive CAD, echocardiogram showed an ejection fraction of 55% which was improved compared to 06/12/2017,, no regional no wall motion abnormalities. Patient was discharged on nitro PRN, aspirin. Patient has been on aspirin and Plavix for more than a year since her stents placement in January 2018. Her Plavix was discontinued, with a follow-up with cardiology in 1 month. Patient was found to have hyperglycemia on admission, hemoglobin A1c was 11.1, blood sugar in the 500s without evidence of DKA or HHS on admission. Patient has poorly controlled type 2 diabetes mellitus, patient was discharged on Levem ir 10 units twice daily, NovoLog sliding scale, metformin, and instructions as below. Physical Exam Const: COMMON NORMALS: no apparent distress and oriented x3 GENERAL APPEARANCE: cooperative and comfortable HENMT: COMMON NORMALS: normocephalic HEAD & SCALP: normocephalic Eye: COMMON NORMALS: PERRL, EOMs intact bilaterally and no papilledema GENERAL EYE: normal appearance of both eyes PUPIL: Yes PERRL DIRECT OPHTHALMOSCOPY: Yes no papilledema Neck/C-Spine: COMMON NORMALS: full ROM, no lymphadenopathy, no JVD and thyroid normal THYROID: thyroid normal Lymph: LYMPHATIC: no lymphadenopathy noted Resp: COMMON NORMALS: normal respiratory effort, no retractions, no use of accessory muscles and clear to auscultation bilaterally AUSCULTATION: clear to auscultation bilaterally Cardio: COMMON NORMALS: no JVD, regular rate, regular rhythm, S1 normal heart sound, S2 normal heart sound, no gallops, no clicks and no murmurs RATE: regular rate RHYTHM: regular rhythm HEART SOUNDS: S1 normal and S2 normal GI: COMMON NORMALS: normal to inspection, nondistended, normoactive bowel sounds, soft to palpation, non-tender and no hepatosplenomegaly PALPATION: Yes soft and Yes no hepatosplenomegaly Extremity: COMMON NORMALS: normal to inspection, full ROM and no pedal edema Neuro: COMMON NORMALS: oriented x3 Discharge Data Data Completed and Pending: Completed Studies During Hospitalization Category Date Time Status CT head wo con* 7 0450 Stat Cat Scan 07/15/19 10:32 Completed XR chest 1V nate ble [id number] Stat Exams 07/15/19 10:32 Completed NM elder perf SPECT r/s* [id number] Routin e Nuc Med 07/16/19 06:40 Completed CV echo complete* [id number] Routine Ultrasound 07/16/19 07:00 Completed Pending at discharge Category Date Time Status Sestamibi Stress Test Request Routi ne Exams 07/15/19 19:11 Stop Req Sestamibi Stress Test Request Routi ne Exams 07/16/19 06:00 Ordered Magnesium AM LABS Lab 07/17/19 04:00 Ordered Magnesium AM LABS Lab 07/18/19 04:00 Ordered Procalcitonin AM LABS Lab 07/17/19 04:00 Ordered Procalcitonin AM LABS Lab 07/18/19 04:00 Ordered Labs from last 24 hours 07/16/19 07/16/19 07/16/19 11:16 06:29 04:39 WBC RBC Hgb Hct MCV MCH MCHC RDW Plt Count MPV Neut % (Auto) Lymph % (Auto) [place] % (Auto) Eos % (Auto) Baso % (Auto) Neut # (Auto) Lymph # (Auto) [place] # (Auto) Eos # (Auto) Baso # (Auto) Nucleated RBC % (a uto) Nucleated RBCs # Sodium 136 Potassium 3.9 Chloride 102 Carbon Dioxide 23 Anion Gap 14.9 BUN 11 Creatinine 0.7 GFR Calculation 84.2 L Glucose 200 H POC Glucose 375 186 Estimat Average Gl ucose Hemoglobin A1c Calcium 9.2 Phosphorus Magnesium 1.9 Total Bilirubin 0.2 AST 22 ALT 22 Alkaline Phosphata se 60 Troponin I 6 Hour Troponin I Hi Sens Del Total Protein 6.9 Albumin 3.2 L Globulin 3.7 Triglycerides 441 H Cholesterol 155 LDL Cholesterol Di rect 80 HDL Cholesterol 30 L Cholesterol/HDL Ra julienne 5.17 H Procalcitonin 0.04 TSH 07/16/19 07/15/19 07/15/19 04:39 20:59 16:25 WBC 9.1 RBC 3.78 L Hgb 10.2 L Hct 32.5 L MCV 86.0 MCH 27.0 L MCHC 31.4 RDW 12.9 Plt Count 211 MPV 11.4 H Neut % (Auto) 39.5 Lymph % (Auto) 45.0 [place] % (Auto) 9.9 Eos % (Auto) 4.4 Baso % (Auto) 0.9 Neut # (Auto) 3.6 Lymph # (Auto) 4.1 [place] # (Auto) 0.9 Eos # (Auto) 0.4 Baso # (Auto) 0.1 Nucleated RBC % (a uto) 0 Nucleated RBCs # 0.0 Sodium Potassium Chloride Carbon Dioxide Anion Gap BUN Creatinine GFR Calculation Glucose POC Glucose 321 Estimat Average Gl ucose 272 Hemoglobin A1c 11.1 H Calcium Phosphorus Magnesium Total Bilirubin AST ALT Alkaline Phosphata se Troponin I 6 Hour Troponin I Hi Sens Del Total Protein Albumin Globulin Triglycerides Cholesterol LDL Cholesterol Di rect HDL Cholesterol Cholesterol/HDL Ra julienne Procalcitonin TSH 07/15/19 07/15/19 16:25 11:30 WBC RBC Hgb Hct MCV MCH MCHC RDW Plt Count MPV Neut % (Auto) Lymph % (Auto) [place] % (Auto) Eos % (Auto) Baso % (Auto) Neut # (Auto) Lymph # (Auto) [place] # (Auto) Eos # (Auto) Baso # (Auto) Nucleated RBC % (a uto) Nucleated RBCs # Sodium Potassium Chloride Carbon Dioxide Anion Gap BUN Creatinine GFR Calculation Glucose POC Glucose Estimat Average Gl ucose Hemoglobin A1c Calcium Phosphorus 2.5 Magnesium 1.8 Total Bilirubin AST ALT Alkaline Phosphata se Troponin I 6 Hour 6.86 Troponin I Hi Sens Del -0.14 L Total Protein Albumin Globulin Triglycerides Cholesterol LDL Cholesterol Di rect HDL Cholesterol Cholesterol/HDL Ra julienne Procalcitonin TSH 3.47 Vitals: Last Vital Signs Temp 98.0 F 07/16/19 11:20 Pulse 61 07/16/19 11:20 Resp 21 H 07/16/19 11:20 BP 139/97 07/16/19 11:20 Pulse Ox 96 07/16/19 11:20 Discharge Plan Discharge Patient Disposition: Home, Self-Care Condition: Stable Prescriptions: New Nitrostat 0.4 mg Tablet, Sublingual 0.4 mg sublingual Q5M PRN (Reason: Chest Pain) 3 Days Qty: 3 RF: 0 Levemir U-100 Insulin 100 unit/mL Solution 10 unit SUBCUT BID 30 Days Qty: 6 RF: 0 Novolog U-100 Insulin aspart 100 unit/mL Solution See Rx Instructions .ROUTE .COMPLEX 30 Days Qty: 10 RF: 0 Continued isosorbide mononitrate 30 mg Tablet Extended Release 24 Hr 30 mg PO DAILY RF: 0 potassium chloride 10 mEq Tablet Extended Release 10 meq PO DAILY RF: 0 trazodone 100 mg Tablet 100 mg PO BEDTIME RF: 0 pantoprazole [Protonix] 40 mg Tablet,Delayed Release (Dr/Ec) 40 mg PO DAILY RF: 0 bumetanide 1 mg Tablet 1 mg PO DAILY RF: 0 fluticasone propion-salmeterol [Advair Diskus] 100-50 mcg/dose Blister With Device 1 puff INHALATION BID RF: 0 fluticasone propionate [Flonase Allergy Relief] 50 mcg/actuation [place],Andrade spension 2 spray INTRANASAL DAILY RF: 0 metformin 500 mg Tablet Extended Release 24 Hr 1,000 mg PO BID RF: 0 Premarin 1.25 mg Tablet 1.25 mg PO DAILY RF: 0 metoprolol tartrate 25 mg Tablet 25 mg PO BID RF: 0 Aspir-81 81 mg Tablet,Delayed Release (Dr/Ec) 81 mg PO DAILY RF: 0 Changed venlafaxine [Effexor XR] 150 mg Capsule,Extended Release 24hr 75 mg PO DAILY Qty: 0 RF: 0 Discontinued clopidogrel [Plavix] 75 mg Tablet 75 mg PO DAILY RF: 0 Discharge Orders: Discharge Order (Routine); Ordered 07/16/19 Ordered By: Ollie Azar Other Ambulatory Orders: ECG nonstress test (Routine) Timeframe: 1 Week Facility: [facility] - Location: Respiratory Therapy Ordered By: Ollie Azar Referrals: Ofe Benson MD [Physician] - 1 month Rad Branham DO [Family Provider] - Discharge Diet: Diabetic Discharge Activity: Resume usual activity Patient Instructions: Diabetes and Diet, How to Check Your Blood Sugar (GEN), Diabetic Foot Care (GEN), Diabetes Mellitus Type 2 in Adults (GEN), Diabetic Foot Ulcers (GEN), Hyperglycemia, Non-Diabetic (GEN) Activity Restrictions/Additional Instructions: -Please follow-up with primary care in 1 week -Please check blood sugars 3 times daily -If blood sugar greater than 500 call primary care -If blood sugar less than 60, drink or juice, call primary care -Inject Levemir 10 units twice daily -NovoLog based on a sliding scale -Bring blood sugar logs to primary care physician's office in 1 week -You have been on aspirin and Plavix for more than a year after stent placement, please stop Plavix, continue aspirin, follow-up with cardiology -QTc 500 ms, dose of Effexor has been decreased to 75 mg once daily, please repeat check EKG in 1 week and follow-up with primary care Discharge Attestations Time Spent in Discharge Care*: less than 30 min Quality Metrics Clinical Quality Measures During this hospital stay, did patient experience: None Coding Level of Care Code Acute Cuff Slitter for Chg Fwd Diagnoses Coronary artery disease I25.10 Hypertension I10 Hyperlipidemia E78.5 Type 2 diabetes mellitus E11.9 Prolonged QT interval R94.31
[2019-07-16] MEDS: acetaminophen 325 mg Tablet 650 MG PO (14:50)
== END 2019-07-16 15:03 | disposition home or self-care (01) ==
LOC: ER 11:49 → CSU 17:53
PROVIDERS: Admitting Provider Family Medicine; Emergency Provider Family Medicine; Family Provider Internal Medicine; Visit Provider Family Medicine
DX: I25.10 Atherosclerotic heart disease of native coronary artery without angina pectoris (principal); I10 Essential (primary) hypertension; E78.5 Hyperlipidemia, unspecified; E11.9 Type 2 diabetes mellitus without complications; R94.31 Abnormal electrocardiogram [ECG] [EKG]; Z95.5 Presence of coronary angioplasty implant and graft; J44.9 Chronic obstructive pulmonary disease, unspecified; G47.33 Obstructive sleep apnea (adult) (pediatric); Z79.82 Long term (current) use of aspirin; Z79.02 Long term (current) use of antithrombotics/antiplatelets; Z79.84 Long term (current) use of oral hypoglycemic drugs; Z82.49 Family history of ischemic heart disease and other diseases of the circulatory system; F17.210 Nicotine dependence, cigarettes, uncomplicated
CPT/HCPCS: 12345; 36415; 36416; 36600; 70450; 71045; 78452; 80051; 80053; 80061; 80307; 81003; 82810; 82962; 83036; 83690; 83721; 83735; 83986; 84100; 84145; 84443; 84484; 85025; 85610; 85730; 93005; 93017; 93306; 94640; 96360; 96361; 96372; 96374; 96375; 99283; 99285; A9500; G0378; J0280; J1650; J1815; J2405; J2785; J7030

== ENCOUNTER 2019-07-15 10:11 | Emergency (ER) | payer MEDICARE, MEDICAID, SELFPAY | END 2019-07-15 18:46 | disposition admitted as inpatient to this hospital (09) | LOC: ER 09-16 13:56 | PROVIDERS: Emergency Provider Family Medicine; Family Provider Internal Medicine; PCP Internal Medicine | DX: E87.1 Hypo-osmolality and hyponatremia (principal); R11.0 Nausea; R74.0 Nonspecific elevation of levels of transaminase and lactic acid dehydrogenase [LDH]; R00.2 Palpitations; E83.42 Hypomagnesemia; E11.621 Type 2 diabetes mellitus with foot ulcer; F17.210 Nicotine dependence, cigarettes, uncomplicated; J44.9 Chronic obstructive pulmonary disease, unspecified; I25.10 Atherosclerotic heart disease of native coronary artery without angina pectoris; I50.30 Unspecified diastolic (congestive) heart failure; E78.5 Hyperlipidemia, unspecified; I10 Essential (primary) hypertension; E03.9 Hypothyroidism, unspecified ==

== ENCOUNTER 2019-08-13 18:55 | Emergency (ER) | payer MEDICAID, SELFPAY ==
[2019-08-13 19:15] VITALS: BP 164/98; PULSE 74; RESP 18; TEMP 37.2; O2SAT 98; BMI 29.2
--- NOTE | 2019-08-13 19:27 | XR_ITS ---
WS: [id number] XR chest 1V portable [id number] REASON FOR EXAM: fever FINDINGS: Comparisons were made to July 15, 2019. There is mild reticular nodular pattern in both lung so some of the previous exam suggesting inte rstitial disease. There was no evidence of pneumonia pulmonary edema or pneumothorax. The heart and mediastinum were normal. XR/XR chest 1V portable [id number] IMPRESSION: Low-grade interstitial changes bilaterally
[2019-08-13 19:59] LABS: Basophils # 0.1 10^3/uL (0.0-0.1); Basophils % 0.8 %; Eosinophils # 0.2 10^3/uL (0.0-0.8); Hematocrit 36.2 % (37.0-47.0); Lymphocytes # 1.6 10^3/uL (0.8-4.8); Mean Corpuscular HGB Conc 30.4 g/dL (30.0-36.0); Mean Corpuscular Hemoglobin 26.1 pg (28.0-34.0); Mean Corpuscular Volume 85.8 fL (81-99); Mean Platelet Volume 10.1 fL (7.4-10.4); Monocytes # 0.6 10^3/uL (0.2-0.9); Monocytes % 9.7 %; Neutrophils # 4.1 10^3/uL (1.8-7.7); Neutrophils % 62.2 %; Nucleated Red Blood Cells % 0 %; Platelet Count 275 10^3/cmm (130-400); Red Blood Count 4.22 10^6/uL (4.1-5.3); Red Cell Distribution Width 13.7 % (12.1-15.1); White Blood Count 6.6 10^3/uL (4.0-10.0)
[2019-08-13 20:11] LABS: Alanine Aminotransferase 175 U/L (0-33); Albumin Level 3.4 g/dL (3.5-5.2); Alkaline Phosphatase 177 IU/L (35-105); Anion Gap 15.3 (5-19); Aspartate Amino Transferase 286 U/L (0-32); Blood Urea Nitrogen 11 mg/dL (8-23); Calcium 9.5 mg/dL (8.5-10.5); Carbon Dioxide 23 mmol/L (22-29); Chloride 92 mmol/L (98-107); Creatinine Clr Calc Pharmacy 81.6016; Globulin 5.8 g/dL (1.3-4.6); Glomerular Filtration Rate 84.2 mL/min (90-130); Glucose 187 mg/dL (65-115); Lipase 49 U/L (13-60); Potassium 3.3 mmol/L (3.5-5.1); Sodium 127 mmol/L (136-145); Total Bilirubin 0.5 mg/dL (0.15-1.2); Total Protein 9.2 g/dL (6.6-8.7)
--- NOTE | 2019-08-13 21:20 | ED_ITS ---
Entered by Arleen Carlos, acting as scribe for Liza Zuniga Aug 13, 2019 18:55 HPI - Fever General: Chief Complaint: Fever Stated Complaint: N/V/FEVER Time Seen by Provider: 08/13/19 21:17 Source: patient and family Mode of arrival: ambulatory History of Present Illness: HPI Narrative: 63 y/o female presents to the ED with complaint of N/V and fever/chills. She says this has been going on for several weeks. She was recently admitted here for elevated BS. She reports having some abd discomfort, too. MD elicited complaint: fever Onset (ago): week(s) Context: recent hospitalization Associated symptoms: Deny back/flank pain, chest pain, confusion, dysuria, extremity pain or headache(s) Review of Systems General: Reports: other (negative unless marked) Eyes: Denies: change in vision or blurry vision ENMT: Denies: throat pain, painful swallowing, hoarseness, ear pain, ear discharge, Change in hearing or nasal discharge Card: Denies: chest pain, palpitations, irregular heart rhythm, syncope, pre- syncope, shortness of breath on exertion or shortness of breath when lying down Resp: Denies: shortness of breath, productive cough, non-productive cough, wheezing, coughing up blood or chest congestion : Denies: flank pain, painful urination, urinary frequency, urinary urgency, decreased urine ouput, urinary incontinence or blood in urine Musc: Denies: neck pain, back pain, extremity pain, extremity swelling, joint pain, joint swelling, joint warmth or joint stiffness Neuro: Denies: headache, numbness in extremities, weakness in extremities, changes in sensation, lack of coordination, difficulty walking, dizziness, vertigo or confusion Endo: Denies: excessive thirst, tired all the time, cold intolerance, excessive sweating, flushing or hot flashes Aj/Lymph: Denies: easy bruising, easy bleeding, petechiae or enlarged lymph nodes All/Imm: Denies: hives, throat swelling, tongue swelling, facial swelling or acute wheezing PFS ED PFSH: Medical History Coronary artery disease Surgical History History of appendectomy History of cholecystectomy History of hysterectomy S/P percutaneous transluminal angioplasty ([employer]) with stent placement Family History Other CAD (coronary artery disease) Social History Smoking and tobacco status: current some day smoker Alcohol intake: never Physical Exam Const: COMMON NORMALS: no apparent distress, oriented x3, no limitations, healthy appearing and well nourished EXAM LIMITATIONS: no altered mental status GENERAL APPEARANCE: cooperative and well developed ORIENTATION/CONSCIOUSNESS: Yes awake HENMT: COMMON NORMALS: normocephalic, head/scalp atraumatic, hearing grossly normal bilaterally, external ears normal, EAC's normal, external nose normal and moist oral mucous membranes HEAD & SCALP: normal to inspection, normocephalic and atraumatic FACE & SINUS: normal facial exam and face symmetric NOSE: external nose normal and nares normal EXTERNAL EAR: Yes external ears normal EXTERNAL AUDITORY CANAL: EAC's normal MOUTH: oral and palatal mucosa normal and tongue normal Eye: COMMON NORMALS: PERRL, EOMs intact bilaterally, conjunctivae normal and no scleral icterus GENERAL EYE: normal appearance of both eyes and normal light reflex CONJUNCTIVA: Yes conjunctivae normal SCLERA: sclerae normal CORNEA: Yes corneas normal PUPIL: Yes PERRL DIRECT OPHTHALMOSCOPY: Yes normal light reflex Neck/C-Spine: COMMON NORMALS: full ROM, no lymphadenopathy, supple, no meningeal signs and no JVD GENERAL: Yes normal visual inspection and Yes trachea midline CERVICAL SPINE: Yes cervical ROM normal Chest: COMMONS NORMALS: inspection of chest normal and palpation of chest normal Resp: COMMON NORMALS: normal respiratory effort, no retractions, no use of accessory muscles and clear to auscultation bilaterally EFFORT & INSPECTION: Yes able to speak in complete sentences AUSCULTATION: clear to auscultation bilaterally Cardio: COMMON NORMALS: no JVD, regular rate, regular rhythm, S1 normal heart sound, S2 normal heart sound, no gallops, no clicks, no murmurs and no rub JUGULAR VENOUS DISTENTION: no JVD RATE: regular rate RHYTHM: regular rhythm HEART SOUNDS: S1 normal and S2 normal : COMMON NORMALS: Yes no CVA tenderness BLADDER/KIDNEY EXAM: Yes no CVA tenderness Back/Pelvis: COMMON NORMALS: no CVA tenderness, thoracic and lumbar spine normal to inspection, no thoracic nor lumbar tenderness and thoraco-lumbar ROM normal Neuro: COMMON NORMALS: oriented x3, CN's II-XII intact bilaterally, moves all extremities, no focal motor deficits and no sensory deficits noted MENINGEAL SIGNS: Yes no meningeal signs Psych: COMMON NORMALS: mental status grossly normal, thought process normal, cooperative, affect normal, speech normal and activity/motor behavior normal SPEECH: Yes normal speech THOUGHT PROCESS: normal thought process Skin: COMMON NORMALS: no rashes or lesions noted, skin turgor normal, no jaundice, no petechiae and no mottling GENERAL SKIN EXAM: no rashes or lesions noted and turgor normal Course Vital Signs: Vital signs: Vital Signs Temperature 98.9 F 08/13/19 19:15 Pulse Rate 74 08/14/19 00:39 Respiratory Rate 16 08/14/19 00:39 Blood Pressure 132/81 08/14/19 00:39 Pulse Oximetry 94 08/14/19 00:39 MDM - Fever MDM Narrative: Medical decision making narrative: Luh is a nice 63-year-old female who comes in complaining of nausea and vomiting, subjective fever and chills for the past 3 weeks. She states she is a little constipated but denies any diarrhea. She says her fevers been up to as high as 104 but it is been a while since she is had a real fever. She states she feels tired and fatigued. She denies any chest pain, shortness of breath, headache, neck pain or otherwise. The patient evaluation today revealed elevated liver enzymes but a cause cannot be determined although a fatty liver is a possibility. CT scan and ultrasound showed no evidence of enlarged common bile duct. I have recommended and offered to perform an MRCP to definitively rule out a common bile duct stone but she declines. She understands the seriousness of missing a common bile duct stone, cholangitis and infection in her abdomen but at this time she feels better and feels as though this is just a prolonged illness and wants to go home. Patient did want me to look at her toe and it does look like she might have a early toe infection. It is very minimal I do not believe she has cellulitis or even osteomyelitis. I will place her on antibiotics for this. She wants to follow-up with Dr. Branham but agrees to return here should her symptoms change or worsen. The patient has been warned but she is also been welcomed to return. Lab Data: Attestation: I reviewed the patient's lab results. Labs: Lab Results 08/13/19 08/13/19 08/13/19 Range/Units 19:38 19:38 19:38 WBC 6.6 (4.0-10.0) 10^3/ uL RBC 4.22 (4.1-5.3) 10^6/u L Hgb 11.0 L (11.5-15.3) g/dL Hct 36.2 L (37.0-47.0) % MCV 85.8 (81-99) fL MCH 26.1 L (28.0-34.0) pg MCHC 30.4 (30.0-36.0) g/dL RDW 13.7 (12.1-15.1) % Plt Count 275 (130-400) 10^3/c mm MPV 10.1 (7.4-10.4) fL Neut % (Auto) 62.2 % Lymph % (Auto) 24.0 % [place] % (Auto) 9.7 % Eos % (Auto) 3.0 % Baso % (Auto) 0.8 % Neut # (Auto) 4.1 (1.8-7.7) 10^3/u L Lymph # (Auto) 1.6 (0.8-4.8) 10^3/u L [place] # (Auto) 0.6 (0.2-0.9) 10^3/u L Eos # (Auto) 0.2 (0.0-0.8) 10^3/u L Baso # (Auto) 0.1 (0.0-0.1) 10^3/u L Nucleated RBC % (a uto) 0 % Nucleated RBCs # 0.0 /100WBC PT (10.5-13.3) SECO NDS INR (0.8-1.2) APTT (23.9-36.7) SECO NDS Sodium 127 L (136-145) mmol/L Potassium 3.3 L (3.5-5.1) mmol/L Chloride 92 L (98-107) mmol/L Carbon Dioxide 23 (22-29) mmol/L Anion Gap 15.3 (5-19) BUN 11 (8-23) mg/dL Creatinine 0.7 (0.5-0.9) mg/dL GFR Calculation 84.2 L (90-130) mL/min Glucose 187 H (65-115) mg/dL Calcium 9.5 (8.5-10.5) mg/dL Magnesium 1.6 L (1.7-2.3) mg/dL Total Bilirubin 0.5 (0.15-1.2) mg/dL AST 286 H (0-32) U/L ALT 175 H (0-33) U/L Alkaline Phosphata se 177 H (35-105) IU/L Troponin T Baselin e (0-10) ng/mL Troponin T 120 Min [place] (0-10) ng/mL Delta Troponin T (0-10) ABS# Total Protein 9.2 H (6.6-8.7) g/dL Albumin 3.4 L (3.5-5.2) g/dL Globulin 5.8 H (1.3-4.6) g/dL Lipase 49 (13-60) U/L Urine Color (Yellow) Urine Appearance (CLEAR) Urine pH (5-7) Ur Specific Gravit y (1.005-1.030) Urine Protein (Negative) Urine Glucose (UA) (Normal) Urine Ketones (Negative) Urine Blood (Negative) Urine Nitrate (Negative) Urine Bilirubin (NEGATIVE) Urine Urobilinogen (Negative) mg/dL Ur Leukocyte Liset ase (Negative) Urine RBC (0-2) /hpf Urine WBC (0-5) /hpf Ur Squamous Epith Cells (0-5) Urine Bacteria (NONE) Acetaminophen < 10.0 L (10-30) ug/mL Hepatitis A IgM Ab (Nonreactive) Hep Bs Antigen (Nonreactive) Hep B Core IgM Ab (Nonreactive) Hepatitis C Antibo dy (Nonreactive) Influenza Type A A g (Negative) POC Influenza B Ag (Negative) 08/13/19 08/13/19 08/13/19 Range/Units 19:38 19:38 19:38 WBC (4.0-10.0) 10^3/ uL RBC (4.1-5.3) 10^6/u L Hgb (11.5-15.3) g/dL Hct (37.0-47.0) % MCV (81-99) fL MCH (28.0-34.0) pg MCHC (30.0-36.0) g/dL RDW (12.1-15.1) % Plt Count (130-400) 10^3/c mm MPV (7.4-10.4) fL Neut % (Auto) % Lymph % (Auto) % [place] % (Auto) % Eos % (Auto) % Baso % (Auto) % Neut # (Auto) (1.8-7.7) 10^3/u L Lymph # (Auto) (0.8-4.8) 10^3/u L [place] # (Auto) (0.2-0.9) 10^3/u L Eos # (Auto) (0.0-0.8) 10^3/u L Baso # (Auto) (0.0-0.1) 10^3/u L Nucleated RBC % (a uto) % Nucleated RBCs # /100WBC PT 14.10 H (10.5-13.3) SECO NDS INR 1.05 (0.8-1.2) APTT 32.7 (23.9-36.7) SECO NDS Sodium (136-145) mmol/L Potassium (3.5-5.1) mmol/L Chloride (98-107) mmol/L Carbon Dioxide (22-29) mmol/L Anion Gap (5-19) BUN (8-23) mg/dL Creatinine (0.5-0.9) mg/dL GFR Calculation (90-130) mL/min Glucose (65-115) mg/dL Calcium (8.5-10.5) mg/dL Magnesium (1.7-2.3) mg/dL Total Bilirubin (0.15-1.2) mg/dL AST (0-32) U/L ALT (0-33) U/L Alkaline Phosphata se (35-105) IU/L Troponin T Baselin e 7 (0-10) ng/mL Troponin T 120 Min [place] (0-10) ng/mL Delta Troponin T (0-10) ABS# Total Protein (6.6-8.7) g/dL Albumin (3.5-5.2) g/dL Globulin (1.3-4.6) g/dL Lipase (13-60) U/L Urine Color (Yellow) Urine Appearance (CLEAR) Urine pH (5-7) Ur Specific Gravit y (1.005-1.030) Urine Protein (Negative) Urine Glucose (UA) (Normal) Urine Ketones (Negative) Urine Blood (Negative) Urine Nitrate (Negative) Urine Bilirubin (NEGATIVE) Urine Urobilinogen (Negative) mg/dL Ur Leukocyte Liset ase (Negative) Urine RBC (0-2) /hpf Urine WBC (0-5) /hpf Ur Squamous Epith Cells (0-5) Urine Bacteria (NONE) Acetaminophen (10-30) ug/mL Hepatitis A IgM Ab Non-reactive (Nonreactive) Hep Bs Antigen Non-reactive (Nonreactive) Hep B Core IgM Ab Non-reactive (Nonreactive) Hepatitis C Antibo dy Non-reactive (Nonreactive) Influenza Type A A g (Negative) POC Influenza B Ag (Negative) 08/13/19 08/13/19 08/13/19 Range/Units 20:52 21:34 21:40 WBC (4.0-10.0) 10^3/ uL RBC (4.1-5.3) 10^6/u L Hgb (11.5-15.3) g/dL Hct (37.0-47.0) % MCV (81-99) fL MCH (28.0-34.0) pg MCHC (30.0-36.0) g/dL RDW (12.1-15.1) % Plt Count (130-400) 10^3/c mm MPV (7.4-10.4) fL Neut % (Auto) % Lymph % (Auto) % [place] % (Auto) % Eos % (Auto) % Baso % (Auto) % Neut # (Auto) (1.8-7.7) 10^3/u L Lymph # (Auto) (0.8-4.8) 10^3/u L [place] # (Auto) (0.2-0.9) 10^3/u L Eos # (Auto) (0.0-0.8) 10^3/u L Baso # (Auto) (0.0-0.1) 10^3/u L Nucleated RBC % (a uto) % Nucleated RBCs # /100WBC PT (10.5-13.3) SECO NDS INR (0.8-1.2) APTT (23.9-36.7) SECO NDS Sodium (136-145) mmol/L Potassium (3.5-5.1) mmol/L Chloride (98-107) mmol/L Carbon Dioxide (22-29) mmol/L Anion Gap (5-19) BUN (8-23) mg/dL Creatinine (0.5-0.9) mg/dL GFR Calculation (90-130) mL/min Glucose (65-115) mg/dL Calcium (8.5-10.5) mg/dL Magnesium (1.7-2.3) mg/dL Total Bilirubin (0.15-1.2) mg/dL AST (0-32) U/L ALT (0-33) U/L Alkaline Phosphata se (35-105) IU/L Troponin T Baselin e (0-10) ng/mL Troponin T 120 [address] [place] 7.38 (0-10) ng/mL Delta Troponin T 0.38 (0-10) ABS# Total Protein (6.6-8.7) g/dL Albumin (3.5-5.2) g/dL Globulin (1.3-4.6) g/dL Lipase (13-60) U/L Urine Color Yellow (Yellow) Urine Appearance Hazy A (CLEAR) Urine pH 6 (5-7) Ur Specific Gravit y 1.010 (1.005-1.030) Urine Protein Neg (Negative) Urine Glucose (UA) Norm (Normal) Urine Ketones Negative (Negative) Urine Blood Neg (Negative) Urine Nitrate Negative (Negative) Urine Bilirubin Neg (NEGATIVE) Urine Urobilinogen Norm (Negative) mg/dL Ur Leukocyte Liset ase Negative (Negative) Urine RBC None (0-2) /hpf Urine WBC None (0-5) /hpf Ur Squamous Epith Cells 5-10 H (0-5) Urine Bacteria 1+ H (NONE) Acetaminophen (10-30) ug/mL Hepatitis A IgM Ab (Nonreactive) Hep Bs Antigen (Nonreactive) Hep B Core IgM Ab (Nonreactive) Hepatitis C Antibo dy (Nonreactive) Influenza Type A A g Negative (Negative) POC Influenza B Ag Negative (Negative) Imaging Data^: CT Abd/Pel: Radiologist's impression: [facility] [address] [address] CT Scan Report Signed with Addenda Patient: Luh Ray Unit #: [id number] : [id number] Age/Sex: 63 / F ADM Date: 08/13/19 Loc: ER Room/Bed: Attending Dr: Ordering Provider/Ordering MD: Liza Zuniga DO Date of Service: 08/13/19 Procedure(s): CT abdomen pelvis w con* [id number] Accession Number(s): [id number] Report Number: [id number]/CT abdomen pelvis w con* [id number] The common bile duct measures approximately 7 mm mid portion likely compensatory to cholecystectomy and the patient's age. The findings were verbally communicated via telephone conference with Liza Mora at 11:17 PM TIRE REPAIRER on 08/13/2019. The findings were acknowledged and understood. Radiation Dose CTDIVOL = (mGy): DLP = 1069.81 (mGy-cm) Addendum Dictated By: Louis Jacob MD Addendum Signed By: Louis Jacob MD Signed Date/Time: 08/13/19 3259 Addendum Cosigned By: PROCEDURE INFORMATION: Exam: CT Abdomen And Pelvis With Contrast Exam date and time: 08/13/2019 9:55 PM Age: 63 years old Clinical indication: Nausea and vomiting; Abdominal pain; Localized; Right; Prior surgery; Surgery type: Gb, appy, exploratory, hysto; Patient HX: Last bm x2 days TECHNIQUE: Imaging protocol: Computed tomography of the abdomen and pelvis with intravenous contrast. Total DLP: 1069.81 mGy-cm Radiation optimization: All CT scans at this facility use at least one of these dose optimization techniques: automated exposure control; mA and/or kV adjustment per patient size (includes targeted exams where dose is matched to clinical indication); or iterative reconstruction. Contrast material: OMNI 300; Contrast volume: 95 ml; Contrast route: IV; COMPARISON: CT abdomen pelvis wo con [id number] 12/20/2016 5:39 PM FINDINGS: Lungs: A calcified granuloma seen in the left lung base posterior medially. Liver: There is mild hypoattenuation of the hepatic parenchyma compatible with mild fatty infiltration. Gallbladder and bile ducts: Status post cholecystectomy. Pancreas: Normal. No ductal dilation. Spleen: Normal. No splenomegaly. Adrenals: Normal. No mass. Kidneys and ureters: Normal. No hydronephrosis. Stomach and bowel: Diverticula are seen on the descending and sigmoid colon. There are no inflammatory changes seen to suggest diverticulitis. Moderate stool is present within the colon. Appendix: Status post appendectomy. Intraperitoneal space: Unremarkable. No free air. No significant fluid collection. Vasculature: Calcifications are seen within the abdominal aorta, iliac arteries bilaterally. Lymph nodes: There are small retroperitoneal lymph nodes seen that are below CT criteria for lymphadenopathy. Bladder: Unremarkable as visualized. Reproductive: Status post hysterectomy. Bones/joints: Degenerative disc disease of the thoracolumbar spine, most severe at the L3-L4 level. Soft tissues: Unremarkable. CT/CT abdomen pelvis w con* [id number] IMPRESSION: 1. Mild diverticulosis of the descending and sigmoid colon without evidence of diverticulitis. 2. Mild fatty infiltration of the liver Radiation Dose CTDIVOL = (mGy): DLP = 1069.81 (mGy-cm) Dictated By: Louis Jacob MD Signed By: Louis Jacob MD Signed Date/Time: 08/13/192241 DD/ 39 US: Radiologist's impression: Abdominal ultrasound, technologist interpretation -no acute findings. Common bile duct is normal at 7 mm. No common bile duct stone seen. Normal hepatic ducts. All other findings unremarkable. Please see formal report. EKG Data^: EKG 1: Attestation: I personally reviewed and interpreted this EKG as follows: EKG interpretation date: 08/13/19 EKG interpretation time: 22:45 Interpretation: Normal sinus rhythm at 69 beats a minute, no acute ST or T wave changes. Discharge Plan Discharge Patient Disposition: Home, Self-Care Clinical Impression: Elevated liver enzymes Vomiting Qualifiers: Vomiting type: unspecified Vomiting Intractability: non-intractable Nausea presence: with nausea Qualified Code(s): R11.2 - Nausea with vomiting, unspecified Cellulitis Qualifiers: Site of cellulitis: extremity Site of cellulitis of extremity: toe Laterality: right Qualified Code(s): L03.031 - Cellulitis of right toe Condition: Stable Prescriptions: New Zofran 4 mg tablet 4 mg PO DAILY PRN (Reason: nausea and vomiting) 5 Days RF: 0 Augmentin 875-125 mg tablet 1 tab PO BID 10 Days Qty: 20 RF: 0 No Action isosorbide mononitrate 30 mg Tablet Extended Release 24 Hr 30 mg PO DAILY RF: 0 potassium chloride 10 mEq Tablet Extended Release 10 meq PO DAILY RF: 0 trazodone 100 mg Tablet 100 mg PO BEDTIME RF: 0 pantoprazole [Protonix] 40 mg Tablet,Delayed Release (Dr/Ec) 40 mg PO DAILY RF: 0 bumetanide 1 mg Tablet 1 mg PO DAILY RF: 0 fluticasone propion-salmeterol [Advair Diskus] 100-50 mcg/dose Blister With Device 1 puff INHALATION BID RF: 0 fluticasone propionate [Flonase Allergy Relief] 50 mcg/actuation [place],Suspension 2 spray INTRANASAL DAILY RF: 0 metformin 500 mg Tablet Extended Release 24 Hr 1,000 mg PO BID RF: 0 Premarin 1.25 mg Tablet 1.25 mg PO DAILY RF: 0 metoprolol tartrate 25 mg Tablet 25 mg PO BID RF: 0 Aspir-81 81 mg Tablet,Delayed Release (Dr/Ec) 81 mg PO DAILY RF: 0 Levemir U-100 Insulin 100 unit/mL Solution 10 unit SUBCUT BID 30 Days Qty: 6 RF: 0 Novolog U-100 Insulin aspart 100 unit/mL Solution See Rx Instructions .ROUTE .COMPLEX 30 Days Qty: 10 RF: 0 Effexor XR 150 mg Capsule,Extended Release 24hr 75 mg PO DAILY Qty: 0 RF: 0 Discharge Orders: Discharge Order (Routine); Ordered 08/14/19 Ordered By: Liza Zuniga Referrals: Rad Branham DO [Family Provider] - 1-3 days Discharge Diet: Clear Liquid Discharge Activity: Increase activity as tolerated Patient Instructions: Acute Nausea and Vomiting (ED), Abdominal Pain (ED) Activity Restrictions/Additional Instructions: Please return to the ER immediately for any of the signs or symptoms listed on your discharge instruction sheets, worsening/changing of your symptoms, you are not getting better as quickly as expected, or for ANY other cause or concerns. I have recommended and offered to perform a MRCP which is the test to definitively rule out a stone in her common bile duct but you have declined. If you do have a stone in this area it could become more painful, and you could get much more ill to the point of even . If your symptoms do not improve or they worsen in any way please return to the ER immediately for recheck. Be certain to follow-up with Dr. Branham as soon as possible for recheck of your liver enzymes and to see how you are feeling. Discharge Date/Time: 08/14/19 00:40 Coding Level of Care Code ED Sheet Rock Taper for Chg Fwd Exam Comprehensive The documentation recorded by the Terrnace hernandez Ashley, accurately reflects the service I personally performed and the decisions made by me, Liza Zuniga Aug 13, 2019 18:55
[2019-08-13 21:22] LABS: Influenza A by IFA Negative (Negative); Influenza B by IFA Negative (Negative)
--- NOTE | 2019-08-13 21:26 | CTR_ITS ---
PROCEDURE INFORMATION: Exam: CT Abdomen And Pelvis With Contrast Exam date and time: 08/13/2019 9:55 PM Age: 63 years old Clinical indication: Nausea and vomiting; Abdominal pain; Localized; Right; Prior surgery; Surgery type: Gb, appy, exploratory, hysto; Patient HX: Last bm x2 days TECHNIQUE: Imaging protocol: Computed tomography of the abdomen and pelvis with intravenous contrast. Total DLP: 1069.81 mGy-cm Radiation optimization: All CT scans at this facility use at least one of these dose optimization techniques: automated exposure control; mA and/or kV adjustment per patient size (includes targeted exams where dose is matched to clinical indication); or iterative reconstruction. Contrast material: OMNI 300; Contrast volume: 95 ml; Contrast route: IV; COMPARISON: CT abdomen pelvis wo con [id number] 12/20/2016 5:39 PM FINDINGS: Lungs: A calcified granuloma seen in the left lung base posterior medially. Liver: There is mild hypoattenuation of the hepatic parenchyma compatible with mild fatty infiltration. Gallbladder and bile ducts: Status post cholecystectomy. Pancreas: Normal. No ductal dilation. Spleen: Normal. No splenomegaly. Adrenals: Normal. No mass. Kidneys and ureters: Normal. No hydronephrosis. Stomach and bowel: Diverticula are seen on the descending and sigmoid colon. There are no inflammatory changes seen to suggest diverticulitis. Moderate stool is present within the colon. Appendix: Status post appendectomy. Intraperitoneal space: Unremarkable. No free air. No significant fluid collection. Vasculature: Calcifications are seen within the abdominal aorta, iliac arteries bilaterally. Lymph nodes: There are small retroperitoneal lymph nodes seen that are below CT criteria for lymphadenopathy. Bladder: Unremarkable as visualized. Reproductive: Status post hysterectomy. Bones/joints: Degenerative disc disease of the thoracolumbar spine, most severe at the L3-L4 level. Soft tissues: Unremarkable. CT/CT abdomen pelvis w con* [id number] IMPRESSION: 1. Mild diverticulosis of the descending and sigmoid colon without evidence of diverticulitis. 2. Mild fatty infiltration of the liver Radiation Dose CTDIVOL = (mGy): DLP = 1069.81 (mGy-cm)
--- NOTE | 2019-08-13 21:26 | ECG_ITS ---
Measurements Intervals [place] Rate: 69 P: 51 NV: 169 QRS: 28 QRSD: 106 T: 50 QT: 430 QTc: [address] DEPRESSION [0.05+ mV ST DEPRESSION] INTERPRETATION BASED ON A DEFAULT AGE OF 40 YEARS Compared to ECG 07/15/2019 16:16:01 ST (T wave) deviation now present Electronically Signed On 08-14-2019 14:12:59 [employer] by Eder Brownlee M.D. [email or web address]
[2019-08-13] MEDS: sodium chloride 0.9% 1,000 ML 999 ML IV ×2 (21:43→21:47)
[2019-08-13 21:45] LABS: Add Urine Microscopic? YES; Bilirubin Urine Neg (NEGATIVE); Blood Urine Neg (Negative); Glucose Urine UA Norm (Normal); Ketones Urine Negative (Negative); Leukocyte Esterase Urine Negative (Negative); Nitrate Urine Negative (Negative); Protein Urine Neg (Negative); Urine Appearance Hazy (CLEAR); Urine Color Yellow (Yellow); Urobilinogen Urine Norm (Negative); pH Urine 6 (5-7)
[2019-08-13 21:59] LABS: Add Urine Culture? No; Bacteria Urine 1+
[2019-08-13 22:00] LABS: INR 1.05 (0.8-1.2); Partial Thromboplastin Time 32.7 SECONDS (23.9-36.7)
[2019-08-13 22:07] LABS: Acetaminophen < 10.0 ug/mL (10-30); Magnesium 1.6 mg/dL (1.7-2.3)
[2019-08-13] MEDS: iohexol 300 mg/mL 100 mL Btl 95 ML IV (22:07)
[2019-08-13 22:21] LABS: Hepatitis A Antibody IgM. Non-Reactive (Nonreactive); Hepatitis B Core IgM Non-Reactive (Nonreactive); Hepatitis B Surface Antigen. Non-Reactive (Nonreactive); Hepatitis C Virus Antibody Non-Reactive (Nonreactive)
[2019-08-13] MEDS: magnesium sulfate premix 2 GM/50 ML PIGGYBACK IV (22:58)
--- NOTE | 2019-08-13 23:13 | US_ITS ---
WS: [id number] ABDOMINAL ULTRASOUND REASON FOR EXAM: Abdominal Pain TECHNIQUE: Grayscale and Doppler ultrasound examination of the abdomen. FINDINGS: Pancreas: Not well seen due to overriding gas. Abdominal aorta and IVC: Appears to be within normal limits. Liver: Liver measures 9.5 cm in length. Coarse echo pattern system with fatty infiltration. Gallbladder prior cholecystectomy. Common bile duct measured 0.88 cm. Left kidney: Left kidney measures 11.2 cm x 6.6 cm x 5.6 cm. Left kidney cortex measures 1.79 cm. No hydronephrosis no stones no masses. Right kidney: Right kidney measures 11.8 cm x 5.7 cm x 5.6 cm. No hydronephrosis no stones Spleen: Spleen measures 11.6 cm US/US abdomen complete* [id number] IMPRESSION: Status post cholecystectomy. Fatty infiltration of the liver
[2019-08-13 23:23] LABS: Troponin 5 2HR 7.38 ng/mL (0-10)
[2019-08-13 23:23] LABS: Troponin(5th) Baseline 7 ng/mL (0-10)
[2019-08-13 23:27] LABS: Troponin 5 2HR Delta 0.38 ABS# (0-10)
[2019-08-13 23:29] VITALS: RESP 16
[2019-08-13] MEDS: morphine 4 mg/mL SDV 1 mL IVP (23:29)
[2019-08-13] MEDS: metoclopramide 5 mg/mL SDV 2 mL 10 MG IV (23:30)
[2019-08-13 23:36] VITALS: BP 138/87; PULSE 71; RESP 16; O2SAT 93
[2019-08-14 00:39] VITALS: BP 132/81; PULSE 74; RESP 16; O2SAT 94
== END 2019-08-14 00:40 | disposition home or self-care (01) ==
PROVIDERS: Nurse Practitioner Family; Emergency Provider Emergency Medicine; Family Provider Internal Medicine
DX: R74.8 Abnormal levels of other serum enzymes (principal); R11.10 Vomiting, unspecified; L03.031 Cellulitis of right toe; I25.10 Atherosclerotic heart disease of native coronary artery without angina pectoris; Z95.5 Presence of coronary angioplasty implant and graft; F17.200 Nicotine dependence, unspecified, uncomplicated
CPT/HCPCS: 71045; 74177; 76700; 80053; 80074; 80307; 81001; 83690; 83735; 84484; 85025; 85610; 85730; 87804; 93005; 96361; 96374; 96375; 99283; 99284; J2270; J2765; J3475; J7030; Q9967

== ENCOUNTER 2019-08-21 23:57 | Emergency (ER) | payer MEDICAID, SELFPAY ==
[2019-08-22 00:11] VITALS: BP 113/91; PULSE 105; RESP 20; TEMP 37; O2SAT 99; BMI 32.1
--- NOTE | 2019-08-22 00:33 | ED_ITS ---
Entered by Arleen Carlos, acting as scribe for Liza Zuniga David Aug 21, 2019 23:57 HPI - General Adult General: Chief complaint: General Medical Stated complaint: HIGH BLOOD SUGAR Time Seen by Provider: 08/22/19 00:05 Source: patient and family Mode of arrival: ambulatory History of Present Illness: HPI narrative: 63 y/o female presents to the ED with complaint of elevated blood glucose. Pt states her sugar was 471 at home, [employer] [facility]. Pt states she took 17 units of insulin. Upon exam, pt denies any pain or other concerns. Pts glucose has normalized upon triage. MD complaint: Elevated Glucose Onset (ago): hour(s) Severity: similar to prior episodes Associated symptoms: Deny chest pain, confusion, diaphoresis, dyspnea, headache(s), malaise, nausea, rash, palpitations, syncope or vomiting Treatments prior to arrival: other (insulin) Review of Systems General: Reports: other (negative unless marked) Const: Denies: fever, chills, body aches, fatigue, malaise or diaphoresis Eyes: Denies: change in vision or blurry vision ENMT: Denies: throat pain, painful swallowing, hoarseness, ear pain, ear discharge, Change in hearing or nasal discharge Card: Denies: chest pain, palpitations, irregular heart rhythm, syncope, pre- syncope, shortness of breath on exertion or shortness of breath when lying down Resp: Denies: shortness of breath, productive cough, non-productive cough, wheezing, coughing up blood or chest congestion GI: Denies: abdominal pain, nausea, vomiting, vomiting blood, coffee grounds in vomit, diarrhea, constipation, cramping, blood in stool or black tarry stool : Denies: flank pain, painful urination, urinary frequency, urinary urgency, decreased urine ouput, urinary incontinence or blood in urine Musc: Denies: neck pain, back pain, extremity pain, extremity swelling, joint pain, joint swelling, joint warmth or joint stiffness Skin/Breast: Denies: rash, skin tenderness or yellow skin Neuro: Denies: headache, numbness in extremities, weakness in extremities, changes in sensation, lack of coordination, difficulty walking, dizziness, vertigo or confusion Endo: Denies: excessive thirst, tired all the time, cold intolerance, excessive sweating, flushing or hot flashes Aj/Lymph: Denies: easy bruising, easy bleeding, petechiae or enlarged lymph nodes All/Imm: Denies: hives, throat swelling, tongue swelling, facial swelling or acute wheezing PFSH ED PFSH: Social History Smoking and tobacco status: current some day smoker Alcohol intake: never History of recent travel: No Physical Exam Const: COMMON NORMALS: no apparent distress, oriented x3, no limitations, healthy appearing and well nourished EXAM LIMITATIONS: no altered mental status GENERAL APPEARANCE: cooperative, well kempt and well developed ORIENTATION/CONSCIOUSNESS: Yes awake HENMT: COMMON NORMALS: normocephalic, head/scalp atraumatic, hearing grossly normal bilaterally, external ears normal, EAC's normal, external nose normal and moist oral mucous membranes HEAD & SCALP: normal to inspection, normocephalic and atraumatic FACE & SINUS: normal facial exam and face symmetric NOSE: external nose normal and nares normal EXTERNAL EAR: Yes external ears normal EXTERNAL AUDITORY CANAL: EAC's normal MOUTH: oral and palatal mucosa normal and tongue normal Eye: COMMON NORMALS: PERRL, EOMs intact bilaterally, conjunctivae normal and no scleral icterus GENERAL EYE: normal appearance of both eyes and normal light reflex CONJUNCTIVA: Yes conjunctivae normal SCLERA: sclerae normal CORNEA: Yes corneas normal PUPIL: Yes PERRL DIRECT OPHTHALMOSCOPY: Yes normal light reflex Neck/C-Spine: COMMON NORMALS: full ROM, no lymphadenopathy, supple, no meningeal signs and no JVD GENERAL: Yes normal visual inspection and Yes trachea midline CERVICAL SPINE: Yes cervical ROM normal Chest: COMMONS NORMALS: inspection of chest normal and palpation of chest normal Resp: COMMON NORMALS: normal respiratory effort, no retractions, no use of accessory muscles and clear to auscultation bilaterally EFFORT & INSPECTION: Yes able to speak in complete sentences AUSCULTATION: clear to auscultation bilaterally Cardio: COMMON NORMALS: no JVD, regular rate, regular rhythm, S1 normal heart sound, S2 normal heart sound, no gallops, no clicks, no murmurs and no rub JUGULAR VENOUS DISTENTION: no JVD RATE: regular rate RHYTHM: regular rhythm HEART SOUNDS: S1 normal and S2 normal GI: COMMON NORMALS: soft to palpation, non-tender, no hepatosplenomegaly and no masses INSPECTION: Yes normal to inspection PALPATION: Yes soft and Yes no hepatosplenomegaly : COMMON NORMALS: Yes no CVA tenderness BLADDER/KIDNEY EXAM: Yes no CVA tenderness Back/Pelvis: COMMON NORMALS: no CVA tenderness, thoracic and lumbar spine normal to inspection, no thoracic nor lumbar tenderness and thoraco-lumbar ROM normal Extremity: COMMON NORMALS: normal to inspection, full ROM, normal capillary refill, no joint enlargement, no clubbing, cyanosis or edema and no calf tenderness Neuro: COMMON NORMALS: oriented x3, CN's II-XII intact bilaterally, moves all extremities, no focal motor deficits and no sensory deficits noted MENINGEAL SIGNS: Yes no meningeal signs Psych: COMMON NORMALS: mental status grossly normal, thought process normal, cooperative, affect normal, speech normal and activity/motor behavior normal APPEARANCE: Yes well kempt SPEECH: Yes normal speech THOUGHT PROCESS: normal thought process Skin: COMMON NORMALS: no rashes or lesions noted, skin turgor normal, no jaundice, no petechiae and no mottling GENERAL SKIN EXAM: no rashes or lesions noted and turgor normal Course Vital Signs: Vital signs: Vital Signs Temperature 98.6 F 08/22/19 00:11 Pulse Rate 105 H 08/22/19 00:11 Respiratory Rate 20 H 08/22/19 00:11 Blood Pressure 113/91 08/22/19 00:11 Pulse Oximetry 99 08/22/19 00:11 MDM - General Adult MDM Narrative: Medical decision making narrative: Luh is a 63-year-old female who comes in with a blood sugar of 127. She said it was in the 400s at home. She denies any symptoms such as chest pain, shortness of breath, palpitations, syncope, diaphoresis, nausea/vomiting or otherwise. I have recommended and offered to do a complete evaluation to include lab work-up and cardiac evaluation but she declines. This time she is asymptomatic and would like to go home. She has eaten. She knows she is welcome to return should her symptoms change or worsen but at this time she is feeling better and would like to go home. The patient was warned but she was also welcome to return. Lab Data: Attestation: I reviewed the patient's lab results. Labs: Lab Results 08/22/19 Range/Units 00:33 POC Glucose 126 (70-110) mg/dL Discharge Plan Discharge Patient Disposition: Home, Self-Care Clinical Impression: Hyperglycemia Condition: Stable Prescriptions: No Action spironolactone 25 mg tablet 12.5 mg PO DAILY 90 Days Qty: 45 RF: 3 isosorbide mononitrate 30 mg Tablet Extended Release 24 Hr 30 mg PO DAILY RF: 0 potassium chloride 10 mEq Tablet Extended Release 10 meq PO DAILY RF: 0 trazodone 100 mg Tablet 100 mg PO BEDTIME RF: 0 pantoprazole [Protonix] 40 mg Tablet,Delayed Release (Dr/Ec) 40 mg PO DAILY RF: 0 bumetanide 1 mg Tablet 1 mg PO DAILY RF: 0 fluticasone propion-salmeterol [Advair Diskus] 100-50 mcg/dose Blister With Device 1 puff INHALATION BID RF: 0 fluticasone propionate [Flonase Allergy Relief] 50 mcg/actuation Stephenson,Suspension 2 spray INTRANASAL DAILY RF: 0 metformin 500 mg Tablet Extended Release 24 Hr 1,000 mg PO BID RF: 0 Premarin 1.25 mg Tablet 1.25 mg PO DAILY RF: 0 metoprolol tartrate 25 mg Tablet 25 mg PO BID RF: 0 aspirin [Aspir-81] 81 mg Tablet,Delayed Release (Dr/Ec) 81 mg PO DAILY RF: 0 venlafaxine [Effexor XR] 150 mg Capsule,Extended Release 24hr 75 mg PO DAILY Qty: 0 RF: 0 Discharge Orders: Discharge Order (Routine); Ordered 08/22/19 Ordered By: Liza Zuniga Referrals: Rad Branham DO [Primary Care Provider] - 1-3 days Discharge Diet: Diabetic Discharge Activity: Increase activity as tolerated Patient Instructions: Diabetic Hyperglycemia (ED) Activity Restrictions/Additional Instructions: Please return to the ER immediately for any of the signs or symptoms listed on your discharge instruction sheets, worsening/changing of your symptoms, you are not getting better as quickly as expected, or for ANY other cause or concerns. If you change your mind and decide you want to undergo further work-up please return to the ER immediately for recheck. Return to the ER specifically for headache, chest pain, shortness of breath, abdominal pain, back pain, fainting or near fainting episodes or for any other cause for concern. Discharge Date/Time: 08/22/19 00:57 Coding Level of Care Code ED City [employer] Assistant for Chg Fwd Exam Comprehensive The documentation recorded by the yolandaibTerrance garcia Ashley, accurately reflects the service I personally performed and the decisions made by , Liza Zuniga Aug 21, 2019 23:57
--- NOTE | 2019-08-22 00:34 | PC.NURSE ---
Blood glucose is 126, informed nurse, and nurse informed the ER doctor
[2019-08-22 00:37] LABS: Glucose Point of Care 126 mg/dL (70-110)
[2019-08-22 15:16] LABS: Glucose Point of Care 160 mg/dL (70-110)
== END 2019-08-22 00:57 | disposition home or self-care (01) ==
PROVIDERS: Emergency Provider Emergency Medicine; Family Provider Internal Medicine; PCP Internal Medicine
DX: R73.9 Hyperglycemia, unspecified (principal); F17.200 Nicotine dependence, unspecified, uncomplicated
CPT/HCPCS: 36416; 82962; 96365; 99281; 99283; A9270

== ENCOUNTER 2019-08-22 03:36 | Inpatient (IN) | payer MEDICARE, MEDICAID, SELFPAY ==
[2019-08-22] VITALS (16 sets, daily range): BP systolic 93–156; BP diastolic 46–88; PULSE 57–87; RESP 16–26; TEMP 36.6–37.1; O2SAT 95–99; BMI 30.9
--- NOTE | 2019-08-22 03:38 | ED_ITS ---
Entered by Arleen Carlos, acting as scribe for Documented by User: Liza Hernandez Efrain 08/22/19 05:57 HPI - Weakness General: Chief complaint: Weakness Stated complaint: diaphoresis / heart palpatations Time Seen by Provider: 08/22/19 03:38 Source: patient and EMS Mode of arrival: EMS History of Present Illness: HPI Narrative: 63 y/o female presents to the ED with complaint of weakness. Pt was seen here a few hours ago for elevated glucose. Upon exam, pt decided she wanted to just go home once she realized her BS was back to normal. She is back now, saying she felt weak and clammy upon returning home. She states she ate a double cheeseburger after leaving the ER and had to crawl back into her house so she called EMS. EMS reports glucose was normal. Upon exam, pt does not want to be here and wants to go home. MD Complaint: generalized weakness and difficulty walking Onset (ago): hour(s) Location: generalized Associated symptoms: Denies chest pain, chills, confusion, dark stools, diaphoresis, dysuria, easy bruising, fever(s), headache(s), nausea, syncope or vomiting Review of Systems General: Reports: other (negative unless marked) Const: Denies: fever, chills, body aches, fatigue, malaise or diaphoresis Eyes: Denies: change in vision or blurry vision ENMT: Denies: throat pain, painful swallowing, hoarseness, ear pain, ear discharge, Change in hearing or nasal discharge Card: Denies: chest pain, palpitations, irregular heart rhythm, syncope, pre- syncope, shortness of breath on exertion or shortness of breath when lying down Resp: Denies: shortness of breath, productive cough, non-productive cough, wheezing, coughing up blood or chest congestion GI: Denies: abdominal pain, nausea, vomiting, vomiting blood, coffee grounds in vomit, diarrhea, constipation, cramping, blood in stool or black tarry stool : Denies: flank pain, painful urination, urinary frequency, urinary urgency, decreased urine ouput, urinary incontinence or blood in urine Musc: Denies: neck pain, back pain, extremity pain, extremity swelling, joint pain, joint swelling, joint warmth or joint stiffness Skin/Breast: Denies: rash, skin tenderness or yellow skin Neuro: Denies: headache, numbness in extremities, weakness in extremities, changes in sensation, lack of coordination, dizziness, vertigo or confusion Endo: Denies: excessive thirst, tired all the time, cold intolerance, excessive sweating, flushing or hot flashes Aj/Lymph: Denies: easy bruising, easy bleeding, petechiae or enlarged lymph nodes All/Imm: Denies: hives, throat swelling, tongue swelling, facial swelling or acute wheezing PFSH ED PFSH: Medical History (Updated 08/25/19 @ 16:48 by Too Ramirez DO) COPD (chronic obstructive pulmonary disease) Coronary artery disease Depression with anxiety Diastolic heart failure Hyperlipidemia Hypertension Hypothyroidism Type 2 diabetes mellitus Surgical History (Updated 08/22/19 @ 12:30 by Wesley Mera MD) History of appendectomy History of cholecystectomy History of hysterectomy History of uvulopalatopharyngoplasty S/P percutaneous transluminal angioplasty ([facility]) with stent placement Family History Other CAD (coronary artery disease) Social History (Updated 08/22/19 @ 12:31 by Wesley Mera MD) Smoking and tobacco status: current some day smoker Alcohol intake: never History of recent travel: No Physical Exam Const: COMMON NORMALS: no apparent distress, oriented x3, no limitations, healthy appearing and well nourished EXAM LIMITATIONS: no altered mental status GENERAL APPEARANCE: cooperative, well kempt and well developed ORIENTATION/CONSCIOUSNESS: Yes awake HENMT: COMMON NORMALS: normocephalic, head/scalp atraumatic, hearing grossly normal bilaterally, external ears normal, EAC's normal, external nose normal and moist oral mucous membranes HEAD & SCALP: normal to inspection, normocephalic and atraumatic FACE & SINUS: normal facial exam and face symmetric NOSE: external nose normal and nares normal EXTERNAL EAR: Yes external ears normal EXTERNAL AUDITORY CANAL: EAC's normal MOUTH: oral and palatal mucosa normal and tongue normal Eye: COMMON NORMALS: PERRL, EOMs intact bilaterally, conjunctivae normal and no scleral icterus GENERAL EYE: normal appearance of both eyes and normal l ight reflex CONJUNCTIVA: Yes conjunctivae normal SCLERA: sclerae normal CORNEA: Yes corneas normal PUPIL: Yes PERRL DIRECT OPHTHALMOSCOPY: Yes normal light reflex Neck/C-Spine: COMMON NORMALS: full ROM, no lymphadenopathy, supple, no meningeal signs and no JVD GENERAL: Yes normal visual inspection and Yes trachea midline CERVICAL SPINE: Yes cervical ROM normal Chest: COMMONS NORMALS: inspection of chest normal and palpation of chest normal Resp: COMMON NORMALS: normal respiratory effort, no retractions, no use of accessory muscles and clear to auscultation bilaterally EFFORT & INSPECTION: Yes able to speak in complete sentences AUSCULTATION: clear to auscultation bilaterally Cardio: COMMON NORMALS: no JVD, regular rate, regular rhythm, S1 normal heart sound, S2 normal heart sound, no gallops, no clicks, no murmurs and no rub JUGULAR VENOUS DISTENTION: no JVD RATE: regular rate RHYTHM: regular rhythm HEART SOUNDS: S1 normal and S2 normal GI: COMMON NORMALS: soft to palpation, non-tender, no hepatosplenomegaly and no masses INSPECTION: Yes normal to inspection PALPATION: Yes soft and Yes no hepatosplenomegaly : COMMON NORMALS: Yes no CVA tenderness BLADDER/KIDNEY EXAM: Yes no CVA tenderness Back/Pelvis: COMMON NORMALS: no CVA tenderness, thoracic and lumbar spine normal to inspection, no thoracic nor lumbar tenderness and thoraco-lumbar ROM normal Extremity: COMMON NORMALS: normal to inspection, full ROM, normal capillary refill, no joint enlargement, no clubbing, cyanosis or edema and no calf tenderness Neuro: COMMON NORMALS: oriented x3, CN's II-XII intact bilaterally, moves all extremities, no focal motor deficits and no sensory deficits noted MENINGEAL SIGNS: Yes no meningeal signs Psych: COMMON NORMALS: mental status grossly normal, thought process normal, cooperative, affect normal, speech normal and activity/motor behavior normal APPEARANCE: Yes well kempt SPEECH: Yes normal speech THOUGHT PROCESS: normal thought process Skin: COMMON NORMALS: no rashes or lesions noted, skin turgor normal, no jaundice, no petechiae and no mottling GENERAL SKIN EXAM: no rashes or lesions noted and turgor normal Course Vital Signs: Vital signs: Vital Signs Temperature 97.8 F 08/25/19 12:44 Pulse Rate 75 08/25/19 12:44 Respiratory Rate 16 08/25/19 12:44 Blood Pressure 96/61 08/25/19 12:44 Pulse Oximetry 98 08/25/19 12:44 MDM - Weakness Lab Data: Labs: Lab Results 08/22/19 08/22/19 08/22/19 Range/Units 04:10 04:10 04:10 WBC 7.0 (4.0-10.0) 10^3/ uL RBC 4.47 (4.1-5.3) 10^6/u L Hgb 11.7 (11.5-15.3) g/dL Hct 38.0 (37.0-47.0) % MCV 85.0 (81-99) fL MCH 26.2 L (28.0-34.0) pg MCHC 30.8 (30.0-36.0) g/dL RDW 14.4 (12.1-15.1) % Plt Count 246 (130-400) 10^3/c mm MPV 10.9 H (7.4-10.4) fL Neut % (Auto) 56.1 % Lymph % (Auto) 34.4 % Beauregard % (Auto) 7.4 % Eos % (Auto) 1.1 % Baso % (Auto) 0.4 % Neut # (Auto) 3.9 (1.8-7.7) 10^3/u L Lymph # (Auto) 2.4 (0.8-4.8) 10^3/u L Bea[place]gard # (Auto) 0.5 (0.2-0.9) 10^3/u L Eos # (Auto) 0.1 (0.0-0.8) 10^3/u L Baso # (Auto) 0.0 (0.0-0.1) 10^3/u L Nucleated RBC % (a uto) 0 % Nucleated RBCs # 0.0 /100WBC Specimen Type Sample Site ABG pH (7.35-7.45) ABG pCO2 (35-45) mmHg ABG pO2 (80.0-100.0) mmH g ABG HCO3 (22-26) mmol/L ABG Base Excess (-2.0-2.0) mmol/ L Damian Test Hematocrit (37-47) % O2 Delivery Device Eap Clinician ID Sodium 131 L (136-145) mmol/L Potassium 3.5 (3.5-5.1) mmol/L Chloride 97 L (98-107) mmol/L Carbon Dioxide 19 L (22-29) mmol/L Anion Gap 18.5 (5-19) BUN 12 (8-23) mg/dL Creatinine 0.9 (0.5-0.9) mg/dL GFR Calculation 63.0 L (90-130) mL/min Glucose 190 H (65-115) mg/dL POC Glucose (70-110) mg/dL Lactic Acid (0.5-2.2) mmol/L Calcium 9.3 (8.5-10.5) mg/dL Magnesium 1.6 L (1.7-2.3) mg/dL Total Bilirubin 0.6 (0.15-1.2) mg/dL AST 262 H (0-32) U/L ALT 145 H (0-33) U/L Alkaline Phosphata se 241 H (35-105) IU/L Troponin I 6 Hour (0-10) ng/mL Troponin I Hi Sens Del (0-12) ng/L Troponin T Baselin e 8 (0-10) ng/mL Troponin T 120 Min igiugig (0-10) ng/mL Delta Troponin T (0-10) ABS# NT-Pro-B Natriuret Pep (0-125) pg/mL Total Protein 9.6 H (6.6-8.7) g/dL Albumin 3.2 L (3.5-5.2) g/dL Globulin 6.4 H (1.3-4.6) g/dL Lipase 63 H (13-60) U/L TSH (0.27-4.20) uIU/ mL Urine Color (Yellow) Urine Appearance (CLEAR) Urine pH (5-7) Ur Specific Gravit y (1.005-1.030) Urine Protein (Negative) Urine Glucose (UA) (Normal) Urine Ketones (Negative) Urine Blood (Negative) Urine Nitrate (Negative) Urine Bilirubin (NEGATIVE) Urine Urobilinogen (Negative) mg/dL Ur Leukocyte Liset ase (Negative) Urine RBC (0-2) /hpf Urine WBC (0-5) /hpf Ur Squamous Epith Cells (0-5) Ur Transition Epit h Cell /hpf Urine Bacteria (NONE) Serum Ketones (Negative) Hepatitis A IgM Ab (Nonreactive) Hep Bs Antigen (Nonreactive) Hep B Core IgM Ab (Nonreactive) Hepatitis C Antibo dy (Nonreactive) Influenza Type A A g (Negative) POC Influenza B Ag (Negative) 08/22/19 08/22/19 08/22/19 Range/Units 04:10 04:10 05:00 WBC (4.0-10.0) 10^3/ uL RBC (4.1-5.3) 10^6/u L Hgb (11.5-15.3) g/dL Hct (37.0-47.0) % MCV (81-99) fL MCH (28.0-34.0) pg MCHC (30.0-36.0) g/dL RDW (12.1-15.1) % Plt Count (130-400) 10^3/c mm MPV (7.4-10.4) fL Neut % (Auto) % Lymph % (Auto) % Beauregard % (Auto) % Eos % (Auto) % Baso % (Auto) % Neut # (Auto) (1.8-7.7) 10^3/u L Lymph # (Auto) (0.8-4.8) 10^3/u L Bea[place]gard # (Auto) (0.2-0.9) 10^3/u L Eos # (Auto) (0.0-0.8) 10^3/u L Baso # (Auto) (0.0-0.1) 10^3/u L Nucleated RBC % (a uto) % Nucleated RBCs # /100WBC Specimen Type Sample Site ABG pH (7.35-7.45) ABG pCO2 (35-45) mmHg ABG pO2 (80.0-100.0) mmH g ABG HCO3 (22-26) mmol/L ABG Base Excess (-2.0-2.0) mmol/ L Damian Test Hematocrit (37-47) % O2 Delivery Device Eap Clinician ID Sodium (136-145) mmol/L Potassium (3.5-5.1) mmol/L Chloride (98-107) mmol/L Carbon Dioxide (22-29) mmol/L Anion Gap (5-19) BUN (8-23) mg/dL Creatinine (0.5-0.9) mg/dL GFR Calculation (90-130) mL/min Glucose (65-115) mg/dL POC Glucose (70-110) mg/dL Lactic Acid (0.5-2.2) mmol/L Calcium (8.5-10.5) mg/dL Magnesium (1.7-2.3) mg/dL Total Bilirubin (0.15-1.2) mg/dL AST (0-32) U/L ALT (0-33) U/L Alkaline Phosphata se (35-105) IU/L Troponin I 6 Hour (0-10) ng/mL Troponin I Hi Sens Del (0-12) ng/L Troponin T Baselin e (0-10) ng/mL Troponin T 120 Min igiugig (0-10) ng/mL Delta Troponin T (0-10) ABS# NT-Pro-B Natriuret Pep (0-125) pg/mL Total Protein (6.6-8.7) g/dL Albumin (3.5-5.2) g/dL Globulin (1.3-4.6) g/dL Lipase (13-60) U/L TSH (0.27-4.20) uIU/ mL Urine Color (Yellow) Urine Appearance (CLEAR) Urine pH (5-7) Ur Specific Gravit y (1.005-1.030) Urine Protein (Negative) Urine Glucose (UA) (Normal) Urine Ketones (Negative) Urine Blood (Negative) Urine Nitrate (Negative) Urine Bilirubin (NEGATIVE) Urine Urobilinogen (Negative) mg/dL Ur Leukocyte Liset ase (Negative) Urine RBC (0-2) /hpf Urine WBC (0-5) /hpf Ur Squamous Epith Cells (0-5) Ur Transition Epit h Cell /hpf Urine Bacteria (NONE) Serum Ketones Negative (Negative) Hepatitis A IgM Ab Non-reactive (Nonreactive) Hep Bs Antigen Non-reactive (Nonreactive) Hep B Core IgM Ab Non-reactive (Nonreactive) Hepatitis C Antibo dy Non-reactive (Nonreactive) Influenza Type A A g Negative (Negative) POC Influenza B Ag Negative (Negative) 08/22/19 08/22/19 08/22/19 Range/Units 05:14 05:37 07:04 WBC (4.0-10.0) 10^3/ uL RBC (4.1-5.3) 10^6/u L Hgb (11.5-15.3) g/dL Hct (37.0-47.0) % MCV (81-99) fL MCH (28.0-34.0) pg MCHC (30.0-36.0) g/dL RDW (12.1-15.1) % Plt Count (130-400) 10^3/c mm MPV (7.4-10.4) fL Neut % (Auto) % Lymph % (Auto) % Beauregard % (Auto) % Eos % (Auto) % Baso % (Auto) % Neut # (Auto) (1.8-7.7) 10^3/u L Lymph # (Auto) (0.8-4.8) 10^3/u L Bea[place]gard # (Auto) (0.2-0.9) 10^3/u L Eos # (Auto) (0.0-0.8) 10^3/u L Baso # (Auto) (0.0-0.1) 10^3/u L Nucleated RBC % (a uto) % Nucleated RBCs # /100WBC Specimen Type Arterial Sample Site Brachial, left ABG pH 7.45 (7.35-7.45) ABG pCO2 32.2 L (35-45) mmHg ABG pO2 70.1 L (80.0-100.0) mmH g ABG HCO3 22.1 (22-26) mmol/L ABG Base Excess -1.5 (-2.0-2.0) mmol/ L Damian Test Pos Hematocrit 31.2 L (37-47) % O2 Delivery Device Room air Eap Clinician ID [email or web address] Sodium (136-145) mmol/L Potassium (3.5-5.1) mmol/L Chloride (98-107) mmol/L Carbon Dioxide (22-29) mmol/L Anion Gap (5-19) BUN (8-23) mg/dL Creatinine (0.5-0.9) mg/dL GFR Calculation (90-130) mL/min Glucose (65-115) mg/dL POC Glucose (70-110) mg/dL Lactic Acid 2.0 (0.5-2.2) mmol/L Calcium (8.5-10.5) mg/dL Magnesium (1.7-2.3) mg/dL Total Bilirubin (0.15-1.2) mg/dL AST (0-32) U/L ALT (0-33) U/L Alkaline Phosphata se (35-105) IU/L Troponin I 6 Hour (0-10) ng/mL Troponin I Hi Sens Del (0-12) ng/L Troponin T Baselin e (0-10) ng/mL Troponin T 120 Min igiugig 7.13 (0-10) ng/mL Delta Troponin T -0.87 L (0-10) ABS# NT-Pro-B Natriuret Pep (0-125) pg/mL Total Protein (6.6-8.7) g/dL Albumin (3.5-5.2) g/dL Globulin (1.3-4.6) g/dL Lipase (13-60) U/L TSH (0.27-4.20) uIU/ mL Urine Color (Yellow) Urine Appearance (CLEAR) Urine pH (5-7) Ur Specific Gravit y (1.005-1.030) Urine Protein (Negative) Urine Glucose (UA) (Normal) Urine Ketones (Negative) Urine Blood (Negative) Urine Nitrate (Negative) Urine Bilirubin (NEGATIVE) Urine Urobilinogen (Negative) mg/dL Ur Leukocyte Liset ase (Negative) Urine RBC (0-2) /hpf Urine WBC (0-5) /hpf Ur Squamous Epith Cells (0-5) Ur Transition Epit h Cell /hpf Urine Bacteria (NONE) Serum Ketones (Negative) Hepatitis A IgM Ab (Nonreactive) Hep Bs Antigen (Nonreactive) Hep B Core IgM Ab (Nonreactive) Hepatitis C Antibo dy (Nonreactive) Influenza Type A A g (Negative) POC Influenza B Ag (Negative) 08/22/19 08/22/19 08/22/19 Range/Units 10:14 10:14 17:08 WBC (4.0-10.0) 10^3/ uL RBC (4.1-5.3) 10^6/u L Hgb (11.5-15.3) g/dL Hct (37.0-47.0) % MCV (81-99) fL MCH (28.0-34.0) pg MCHC (30.0-36.0) g/dL RDW (12.1-15.1) % Plt Count (130-400) 10^3/c mm MPV (7.4-10.4) fL Neut % (Auto) % Lymph % (Auto) % Beauregard % (Auto) % Eos % (Auto) % Baso % (Auto) % Neut # (Auto) (1.8-7.7) 10^3/u L Lymph # (Auto) (0.8-4.8) 10^3/u L Bea[place]gard # (Auto) (0.2-0.9) 10^3/u L Eos # (Auto) (0.0-0.8) 10^3/u L Baso # (Auto) (0.0-0.1) 10^3/u L Nucleated RBC % (a uto) % Nucleated RBCs # /100WBC Specimen Type Sample Site ABG pH (7.35-7.45) ABG pCO2 (35-45) mmHg ABG pO2 (80.0-100.0) mmH g ABG HCO3 (22-26) mmol/L ABG Base Excess (-2.0-2.0) mmol/ L Damian Test Hematocrit (37-47) % O2 Delivery Device Eap Clinician ID Sodium (136-145) mmol/L Potassium (3.5-5.1) mmol/L Chloride (98-107) mmol/L Carbon Dioxide (22-29) mmol/L Anion Gap (5-19) BUN (8-23) mg/dL Creatinine (0.5-0.9) mg/dL GFR Calculation (90-130) mL/min Glucose (65-115) mg/dL POC Glucose 160 (70-110) mg/dL Lactic Acid (0.5-2.2) mmol/L Calcium (8.5-10.5) mg/dL Magnesium (1.7-2.3) mg/dL Total Bilirubin (0.15-1.2) mg/dL AST (0-32) U/L ALT (0-33) U/L Alkaline Phosphata se (35-105) IU/L Troponin I 6 Hour 7.49 (0-10) ng/mL Troponin I Hi Sens Del -0.51 L (0-12) ng/L Troponin T Baselin e (0-10) ng/mL Troponin T 120 Min igiugig (0-10) ng/mL Delta Troponin T (0-10) ABS# NT-Pro-B Natriuret Pep 85 (0-125) pg/mL Total Protein (6.6-8.7) g/dL Albumin (3.5-5.2) g/dL Globulin (1.3-4.6) g/dL Lipase (13-60) U/L TSH 4.14 (0.27-4.20) uIU/ mL Urine Color (Yellow) Urine Appearance (CLEAR) Urine pH (5-7) Ur Specific Gravit y (1.005-1.030) Urine Protein (Negative) Urine Glucose (UA) (Normal) Urine Ketones (Negative) Urine Blood (Negative) Urine Nitrate (Negative) Urine Bilirubin (NEGATIVE) Urine Urobilinogen (Negative) mg/dL Ur Leukocyte Liset ase (Negative) Urine RBC (0-2) /hpf Urine WBC (0-5) /hpf Ur Squamous Epith Cells (0-5) Ur Transition Epit h Cell /hpf Urine Bacteria (NONE) Serum Ketones (Negative) Hepatitis A IgM Ab (Nonreactive) Hep Bs Antigen (Nonreactive) Hep B Core IgM Ab (Nonreactive) Hepatitis C Antibo dy (Nonreactive) Influenza Type A A g (Negative) POC Influenza B Ag (Negative) 08/22/19 08/22/19 08/23/19 Range/Units 17:10 20:52 05:28 WBC 6.0 (4.0-10.0) 10^3/ uL RBC 3.77 L (4.1-5.3) 10^6/u L Hgb 9.9 L (11.5-15.3) g/dL Hct 33.1 L (37.0-47.0) % MCV 87.8 (81-99) fL MCH 26.3 L (28.0-34.0) pg MCHC 29.9 L (30.0-36.0) g/dL RDW 14.7 (12.1-15.1) % Plt Count 214 (130-400) 10^3/c mm MPV 10.0 (7.4-10.4) fL Neut % (Auto) 60.8 % Lymph % (Auto) 26.5 % Beauregard % (Auto) 10.2 % Eos % (Auto) 1.7 % Baso % (Auto) 0.5 % Neut # (Auto) 3.6 (1.8-7.7) 10^3/u L Lymph # (Auto) 1.6 (0.8-4.8) 10^3/u L Bea[place]gard # (Auto) 0.6 (0.2-0.9) 10^3/u L Eos # (Auto) 0.1 (0.0-0.8) 10^3/u L Baso # (Auto) 0.0 (0.0-0.1) 10^3/u L Nucleated RBC % (a uto) 0 % Nucleated RBCs # 0.0 /100WBC Specimen Type Sample Site ABG pH (7.35-7.45) ABG pCO2 (35-45) mmHg ABG pO2 (80.0-100.0) mmH g ABG HCO3 (22-26) mmol/L ABG Base Excess (-2.0-2.0) mmol/ L Damian Test Hematocrit (37-47) % O2 Delivery Device Eap Clinician ID Sodium (136-145) mmol/L Potassium (3.5-5.1) mmol/L Chloride (98-107) mmol/L Carbon Dioxide (22-29) mmol/L Anion Gap (5-19) BUN (8-23) mg/dL Creatinine (0.5-0.9) mg/dL GFR Calculation (90-130) mL/min Glucose (65-115) mg/dL POC Glucose 81 (70-110) mg/dL Lactic Acid (0.5-2.2) mmol/L Calcium (8.5-10.5) mg/dL Magnesium (1.7-2.3) mg/dL Total Bilirubin (0.15-1.2) mg/dL AST (0-32) U/L ALT (0-33) U/L Alkaline Phosphata se (35-105) IU/L Troponin I 6 Hour (0-10) ng/mL Troponin I Hi Sens Del (0-12) ng/L Troponin T Baselin e (0-10) ng/mL Troponin T 120 Min igiugig (0-10) ng/mL Delta Troponin T (0-10) ABS# NT-Pro-B Natriuret Pep (0-125) pg/mL Total Protein (6.6-8.7) g/dL Albumin (3.5-5.2) g/dL Globulin (1.3-4.6) g/dL Lipase (13-60) U/L TSH (0.27-4.20) uIU/ mL Urine Color Yellow (Yellow) Urine Appearance Hazy A (CLEAR) Urine pH 5 (5-7) Ur Specific Gravit y 1.005 (1.005-1.030) Urine Protein Neg (Negative) Urine Glucose (UA) Norm (Normal) Urine Ketones Negative (Negative) Urine Blood Neg (Negative) Urine Nitrate Negative (Negative) Urine Bilirubin Neg (NEGATIVE) Urine Urobilinogen Norm (Negative) mg/dL Ur Leukocyte Liset ase 1+ H (Negative) Urine RBC None (0-2) /hpf Urine WBC 15-25 H (0-5) /hpf Ur Squamous Epith Cells 25-40 H (0-5) Ur Transition Epit h Cell 0-4 /hpf Urine Bacteria 2+ H (NONE) Serum Ketones (Negative) Hepatitis A IgM Ab (Nonreactive) Hep Bs Antigen (Nonreactive) Hep B Core IgM Ab (Nonreactive) Hepatitis C Antibo dy (Nonreactive) Influenza Type A A g (Negative) POC Influenza B Ag (Negative) 08/23/19 08/23/19 08/23/19 Range/Units 05:28 05:28 06:29 WBC (4.0-10.0) 10^3/ uL RBC (4.1-5.3) 10^6/u L Hgb (11.5-15.3) g/dL Hct (37.0-47.0) % MCV (81-99) fL MCH (28.0-34.0) pg MCHC (30.0-36.0) g/dL RDW (12.1-15.1) % Plt Count (130-400) 10^3/c mm MPV (7.4-10.4) fL Neut % (Auto) % Lymph % (Auto) % Bea[place]gard % (Auto) % Eos % (Auto) % Baso % (Auto) % Neut # (Auto) (1.8-7.7) 10^3/u L Lymph # (Auto) (0.8-4.8) 10^3/u L Bea[place]gard # (Auto) (0.2-0.9) 10^3/u L Eos # (Auto) (0.0-0.8) 10^3/u L Baso # (Auto) (0.0-0.1) 10^3/u L Nucleated RBC % (a uto) % Nucleated RBCs # /100WBC Specimen Type Sample Site ABG pH (7.35-7.45) ABG pCO2 (35-45) mmHg ABG pO2 (80.0-100.0) mmH g ABG HCO3 (22-26) mmol/L ABG Base Excess (-2.0-2.0) mmol/ L Damian Test Hematocrit (37-47) % O2 Delivery Device Eap Clinician ID Sodium 133 L (136-145) mmol/L Potassium 4.2 (3.5-5.1) mmol/L Chloride 102 (98-107) mmol/L Carbon Dioxide 21 L (22-29) mmol/L Anion Gap 14.2 (5-19) BUN 9 (8-23) mg/dL Creatinine 0.8 (0.5-0.9) mg/dL GFR Calculation 72.2 L (90-130) mL/min Glucose 139 H (65-115) mg/dL POC Glucose 147 (70-110) mg/dL Lactic Acid (0.5-2.2) mmol/L Calcium 8.6 (8.5-10.5) mg/dL Magnesium 1.8 (1.7-2.3) mg/dL Total Bilirubin 0.6 (0.15-1.2) mg/dL AST 279 H (0-32) U/L ALT 135 H (0-33) U/L Alkaline Phosphata se 201 H (35-105) IU/L Troponin I 6 Hour (0-10) ng/mL Troponin I Hi Sens Del (0-12) ng/L Troponin T Baselin e (0-10) ng/mL Troponin T 120 Min igiugig (0-10) ng/mL Delta Troponin T (0-10) ABS# NT-Pro-B Natriuret Pep (0-125) pg/mL Total Protein 8.0 (6.6-8.7) g/dL Albumin 2.8 L (3.5-5.2) g/dL Globulin 5.2 H (1.3-4.6) g/dL Lipase (13-60) U/L TSH (0.27-4.20) uIU/ mL Urine Color (Yellow) Urine Appearance (CLEAR) Urine pH (5-7) Ur Specific Gravit y (1.005-1.030) Urine Protein (Negative) Urine Glucose (UA) (Normal) Urine Ketones (Negative) Urine Blood (Negative) Urine Nitrate (Negative) Urine Bilirubin (NEGATIVE) Urine Urobilinogen (Negative) mg/dL Ur Leukocyte Liset ase (Negative) Urine RBC (0-2) /hpf Urine WBC (0-5) /hpf Ur Squamous Epith Cells (0-5) Ur Transition Epit h Cell /hpf Urine Bacteria (NONE) Serum Ketones (Negative) Hepatitis A IgM Ab (Nonreactive) Hep Bs Antigen (Nonreactive) Hep B Core IgM Ab (Nonreactive) Hepatitis C Antibo dy (Nonreactive) Influenza Type A A g (Negative) POC Influenza B Ag (Negative) 08/23/19 08/23/19 Range/Units 11:45 16:41 WBC (4.0-10.0) 10^3/ uL RBC (4.1-5.3) 10^6/u L Hgb (11.5-15.3) g/dL Hct (37.0-47.0) % MCV (81-99) fL MCH (28.0-34.0) pg MCHC (30.0-36.0) g/dL RDW (12.1-15.1) % Plt Count (130-400) 10^3/c mm MPV (7.4-10.4) fL Neut % (Auto) % Lymph % (Auto) % Beauregard % (Auto) % Eos % (Auto) % Baso % (Auto) % Neut # (Auto) (1.8-7.7) 10^3/u L Lymph # (Auto) (0.8-4.8) 10^3/u L Bea[place]gard # (Auto) (0.2-0.9) 10^3/u L Eos # (Auto) (0.0-0.8) 10^3/u L Baso # (Auto) (0.0-0.1) 10^3/u L Nucleated RBC % (a uto) % Nucleated RBCs # /100WBC Specimen Type Sample Site ABG pH (7.35-7.45) ABG pCO2 (35-45) mmHg ABG pO2 (80.0-100.0) mmH g ABG HCO3 (22-26) mmol/L ABG Base Excess (-2.0-2.0) mmol/ L Damian Test Hematocrit (37-47) % O2 Delivery Device Eap Clinician ID Sodium (136-145) mmol/L Potassium (3.5-5.1) mmol/L Chloride (98-107) mmol/L Carbon Dioxide (22-29) mmol/L Anion Gap (5-19) BUN (8-23) mg/dL Creatinine (0.5-0.9) mg/dL GFR Calculation (90-130) mL/min Glucose (65-115) mg/dL POC Glucose 149 97 (70-110) mg/dL Lactic Acid (0.5-2.2) mmol/L Calcium (8.5-10.5) mg/dL Magnesium (1.7-2.3) mg/dL Total Bilirubin (0.15-1.2) mg/dL AST (0-32) U/L ALT (0-33) U/L Alkaline Phosphata se (35-105) IU/L Troponin I 6 Hour (0-10) ng/mL Troponin I Hi Sens Del (0-12) ng/L Troponin T Baselin e (0-10) ng/mL Troponin T 120 Min igiugig (0-10) ng/mL Delta Troponin T (0-10) ABS# NT-Pro-B Natriuret Pep (0-125) pg/mL Total Protein (6.6-8.7) g/dL Albumin (3.5-5.2) g/dL Globulin (1.3-4.6) g/dL Lipase (13-60) U/L TSH (0.27-4.20) uIU/ mL Urine Color (Yellow) Urine Appearance (CLEAR) Urine pH (5-7) Ur Specific Gravit y (1.005-1.030) Urine Protein (Negative) Urine Glucose (UA) (Normal) Urine Ketones (Negative) Urine Blood (Negative) Urine Nitrate (Negative) Urine Bilirubin (NEGATIVE) Urine Urobilinogen (Negative) mg/dL Ur Leukocyte Liset ase (Negative) Urine RBC (0-2) /hpf Urine WBC (0-5) /hpf Ur Squamous Epith Cells (0-5) Ur Transition Epit h Cell /hpf Urine Bacteria (NONE) Serum Ketones (Negative) Hepatitis A IgM Ab (Nonreactive) Hep Bs Antigen (Nonreactive) Hep B Core IgM Ab (Nonreactive) Hepatitis C Antibo dy (Nonreactive) Influenza Type A A g (Negative) POC Influenza B Ag (Negative) Imaging Data^: CXR: My impression: No acute cardiopulmonary findings Radiologist's impression: [address] [address] XRay Report Signed Patient: Luh Ray #: [id number] : 5Acct#:[id number] Age/Sex: 63 / FADM Date: 08/22/19 Loc: ERRoom/Bed: Attending Dr: Ordering Provider/Ordering MD: Liza Zuniga DO Date of Service: 08/22/19 Procedure(s): XR chest 1V portable [id number] Accession Number(s): [id number] Report Number: [id number] PROCEDURE INFORMATION: Exam: XR Chest, 1 View Exam date and time: 08/22/2019 4:18 AM Age: 63 years old Clinical indication: Shortness of breath; Chest pain; Type not specified; Prior surgery; Surgery type: Stents; Additional info: Cough TECHNIQUE: Imaging protocol: XR of the chest Views: 1 view. COMPARISON: CR XR chest 1V portable [id number] 08/13/2019 8:08 PM FINDINGS: Lungs: Lungs are clear. Pleural space: There is no pleural effusion or pneumothorax. Heart/Mediastinum: Cardiomediastinal contours are unremarkable. Bones/joints: Bones are unremarkable. XR/XR chest 1V portable [id number] IMPRESSION: No pathologic findings. EKG Data^: EKG 1: Attestation: I personally reviewed and interpreted this EKG as follows: EKG interpretation date: 08/22/19 EKG interpretation time: 04:40 Interpretation: Normal sinus rhythm at 73 beats a minute, prolonged QT, no other acute ST-T wave changes. Discharge Plan Discharge Admit Provider: Wesley Mera Clinical Impression: Nausea, Transaminitis, Hyponatremia, Palpitations, Hypomagnesemia, Diabetic foot ulcer Condition: Stable Discharge Orders: Discharge Order (Routine); Ordered 08/25/19 Ordered By: Freda Boyer Discharge Diet: Usual diet, Cardiac, Diabetic and Low Cholesterol Discharge Activity: Resume usual activity Interventions: ED Discharge Assessment Last Done: 08/22/19 11:39 Discharge Date/Time: 08/22/19 12:10 Sign Out Sign Out Data: Patient Sign Out occurred on 08/22/19 at 06:16. Patient's care was discussed, and care was transferred from Liza Zuniga to Too Ramirez DO. Sign Out Comment: Case turned over to Dr. Ramirez at change of shift. Last updated by Liza Zuniga at 08/22/19 05:55 Coding Level of Care Code ED Automotive Glass Mechanic for Chg Fwd Exam Comprehensive Documented by User: Too Ramirez DO 08/25/19 16:49 HPI - Weakness General: Chief complaint: Weakness Stated complaint: diaphoresis / heart palpatations Time Seen by Provider: 08/22/19 03:38 PFSH ED PFSH: Medical History (Updated 08/25/19 @ 16:48 by Too Ramirez DO) COPD (chronic obstructive pulmonary disease) Coronary artery disease Depression with anxiety Diastolic heart failure Hyperlipidemia Hypertension Hypothyroidism Type 2 diabetes mellitus Surgical History (Updated 08/22/19 @ 12:30 by Wesley Mera MD) History of appendectomy History of cholecystectomy History of hysterectomy History of uvulopalatopharyngoplasty S/P percutaneous transluminal angioplasty ([employer]) with stent placement Family History Other CAD (coronary artery disease) Social History (Updated 08/22/19 @ 12:31 by Wesley Mera MD) Smoking and tobacco status: current some day smoker Alcohol intake: never History of recent travel: No Course ED course: Patient has persistent nausea we will go ahead and admit for IV fluids antiemetics. Vital Signs: Vital signs: Vital Signs Temperature 97.8 F 08/25/19 12:44 Pulse Rate 75 08/25/19 12:44 Respiratory Rate 16 08/25/19 12:44 Blood Pressure 96/61 08/25/19 12:44 Pulse Oximetry 98 08/25/19 12:44 MDM - Weakness Lab Data: Labs: Lab Results 08/22/19 08/22/19 08/22/19 Range/Units 04:10 04:10 04:10 WBC 7.0 (4.0-10.0) 10^3/ uL RBC 4.47 (4.1-5.3) 10^6/u L Hgb 11.7 (11.5-15.3) g/dL Hct 38.0 (37.0-47.0) % MCV 85.0 (81-99) fL MCH 26.2 L (28.0-34.0) pg MCHC 30.8 (30.0-36.0) g/dL RDW 14.4 (12.1-15.1) % Plt Count 246 (130-400) 10^3/c mm MPV 10.9 H (7.4-10.4) fL Neut % (Auto) 56.1 % Lymph % (Auto) 34.4 % Beauregard % (Auto) 7.4 % Eos % (Auto) 1.1 % Baso % (Auto) 0.4 % Neut # (Auto) 3.9 (1.8-7.7) 10^3/u L Lymph # (Auto) 2.4 (0.8-4.8) 10^3/u L Bea[place]gard # (Auto) 0.5 (0.2-0.9) 10^3/u L Eos # (Auto) 0.1 (0.0-0.8) 10^3/u L Baso # (Auto) 0.0 (0.0-0.1) 10^3/u L Nucleated RBC % (a uto) 0 % Nucleated RBCs # 0.0 /100WBC Specimen Type Sample Site ABG pH (7.35-7.45) ABG pCO2 (35-45) mmHg ABG pO2 (80.0-100.0) mmH g ABG HCO3 (22-26) mmol/L ABG Base Excess (-2.0-2.0) mmol/ L Damian Test Hematocrit (37-47) % O2 Delivery Device Eap Clinician ID Sodium 131 L (136-145) mmol/L Potassium 3.5 (3.5-5.1) mmol/L Chloride 97 L (98-107) mmol/L Carbon Dioxide 19 L (22-29) mmol/L Anion Gap 18.5 (5-19) BUN 12 (8-23) mg/dL Creatinine 0.9 (0.5-0.9) mg/dL GFR Calculation 63.0 L (90-130) mL/min Glucose 190 H (65-115) mg/dL POC Glucose (70-110) mg/dL Lactic Acid (0.5-2.2) mmol/L Calcium 9.3 (8.5-10.5) mg/dL Magnesium 1.6 L (1.7-2.3) mg/dL Total Bilirubin 0.6 (0.15-1.2) mg/dL AST 262 H (0-32) U/L ALT 145 H (0-33) U/L Alkaline Phosphata se 241 H (35-105) IU/L Troponin I 6 Hour (0-10) ng/mL Troponin I Hi Sens Del (0-12) ng/L Troponin T Baselin e 8 (0-10) ng/mL Troponin T 120 Min igiugig (0-10) ng/mL Delta Troponin T (0-10) ABS# NT-Pro-B Natriuret Pep (0-125) pg/mL Total Protein 9.6 H (6.6-8.7) g/dL Albumin 3.2 L (3.5-5.2) g/dL Globulin 6.4 H (1.3-4.6) g/dL Lipase 63 H (13-60) U/L TSH (0.27-4.20) uIU/ mL Urine Color (Yellow) Urine Appearance (CLEAR) Urine pH (5-7) Ur Specific Gravit y (1.005-1.030) Urine Protein (Negative) Urine Glucose (UA) (Normal) Urine Ketones (Negative) Urine Blood (Negative) Urine Nitrate (Negative) Urine Bilirubin (NEGATIVE) Urine Urobilinogen (Negative) mg/dL Ur Leukocyte Liset ase (Negative) Urine RBC (0-2) /hpf Urine WBC (0-5) /hpf Ur Squamous Epith Cells (0-5) Ur Transition Epit h Cell /hpf Urine Bacteria (NONE) Serum Ketones (Negative) Hepatitis A IgM Ab (Nonreactive) Hep Bs Antigen (Nonreactive) Hep B Core IgM Ab (Nonreactive) Hepatitis C Antibo dy (Nonreactive) Influenza Type A A g (Negative) POC Influenza B Ag (Negative) 08/22/19 08/22/19 08/22/19 Range/Units 04:10 04:10 05:00 WBC (4.0-10.0) 10^3/ uL RBC (4.1-5.3) 10^6/u L Hgb (11.5-15.3) g/dL Hct (37.0-47.0) % MCV (81-99) fL MCH (28.0-34.0) pg MCHC (30.0-36.0) g/dL RDW (12.1-15.1) % Plt Count (130-400) 10^3/c mm MPV (7.4-10.4) fL Neut % (Auto) % Lymph % (Auto) % Beauregard % (Auto) % Eos % (Auto) % Baso % (Auto) % Neut # (Auto) (1.8-7.7) 10^3/u L Lymph # (Auto) (0.8-4.8) 10^3/u L Bea[place]gard # (Auto) (0.2-0.9) 10^3/u L Eos # (Auto) (0.0-0.8) 10^3/u L Baso # (Auto) (0.0-0.1) 10^3/u L Nucleated RBC % (a uto) % Nucleated RBCs # /100WBC Specimen Type Sample Site ABG pH (7.35-7.45) ABG pCO2 (35-45) mmHg ABG pO2 (80.0-100.0) mmH g ABG HCO3 (22-26) mmol/L ABG Base Excess (-2.0-2.0) mmol/ L Damian Test Hematocrit (37-47) % O2 Delivery Device Eap Clinician ID Sodium (136-145) mmol/L Potassium (3.5-5.1) mmol/L Chloride (98-107) mmol/L Carbon Dioxide (22-29) mmol/L Anion Gap (5-19) BUN (8-23) mg/dL Creatinine (0.5-0.9) mg/dL GFR Calculation (90-130) mL/min Glucose (65-115) mg/dL POC Glucose (70-110) mg/dL Lactic Acid (0.5-2.2) mmol/L Calcium (8.5-10.5) mg/dL Magnesium (1.7-2.3) mg/dL Total Bilirubin (0.15-1.2) mg/dL AST (0-32) U/L ALT (0-33) U/L Alkaline Phosphata se (35-105) IU/L Troponin I 6 Hour (0-10) ng/mL Troponin I Hi Sens Del (0-12) ng/L Troponin T Baselin e (0-10) ng/mL Troponin T 120 Min igiugig (0-10) ng/mL Delta Troponin T (0-10) ABS# NT-Pro-B Natriuret Pep (0-125) pg/mL Total Protein (6.6-8.7) g/dL Albumin (3.5-5.2) g/dL Globulin (1.3-4.6) g/dL Lipase (13-60) U/L TSH (0.27-4.20) uIU/ mL Urine Color (Yellow) Urine Appearance (CLEAR) Urine pH (5-7) Ur Specific Gravit y (1.005-1.030) Urine Protein (Negative) Urine Glucose (UA) (Normal) Urine Ketones (Negative) Urine Blood (Negative) Urine Nitrate (Negative) Urine Bilirubin (NEGATIVE) Urine Urobilinogen (Negative) mg/dL Ur Leukocyte Liset ase (Negative) Urine RBC (0-2) /hpf Urine WBC (0-5) /hpf Ur Squamous Epith Cells (0-5) Ur Transition Epit h Cell /hpf Urine Bacteria (NONE) Serum Ketones Negative (Negative) Hepatitis A IgM Ab Non-reactive (Nonreactive) Hep Bs Antigen Non-reactive (Nonreactive) Hep B Core IgM Ab Non-reactive (Nonreactive) Hepatitis C Antibo dy Non-reactive (Nonreactive) Influenza Type A A g Negative (Negative) POC Influenza B Ag Negative (Negative) 08/22/19 08/22/19 08/22/19 Range/Units 05:14 05:37 07:04 WBC (4.0-10.0) 10^3/ uL RBC (4.1-5.3) 10^6/u L Hgb (11.5-15.3) g/dL Hct (37.0-47.0) % MCV (81-99) fL MCH (28.0-34.0) pg MCHC (30.0-36.0) g/dL RDW (12.1-15.1) % Plt Count (130-400) 10^3/c mm MPV (7.4-10.4) fL Neut % (Auto) % Lymph % (Auto) % Beauregard % (Auto) % Eos % (Auto) % Baso % (Auto) % Neut # (Auto) (1.8-7.7) 10^3/u L Lymph # (Auto) (0.8-4.8) 10^3/u L Bea[place]gard # (Auto) (0.2-0.9) 10^3/u L Eos # (Auto) (0.0-0.8) 10^3/u L Baso # (Auto) (0.0-0.1) 10^3/u L Nucleated RBC % (a uto) % Nucleated RBCs # /100WBC Specimen Type Arterial Sample Site Brachial, left ABG pH 7.45 (7.35-7.45) ABG pCO2 32.2 L (35-45) mmHg ABG pO2 70.1 L (80.0-100.0) mmH g ABG HCO3 22.1 (22-26) mmol/L ABG Base Excess -1.5 (-2.0-2.0) mmol/ L Damian Test Pos Hematocrit 31.2 L (37-47) % O2 Delivery Device Room air Eap Clinician ID [email or web address] Sodium (136-145) mmol/L Potassium (3.5-5.1) mmol/L Chloride (98-107) mmol/L Carbon Dioxide (22-29) mmol/L Anion Gap (5-19) BUN (8-23) mg/dL Creatinine (0.5-0.9) mg/dL GFR Calculation (90-130) mL/min Glucose (65-115) mg/dL POC Glucose (70-110) mg/dL Lactic Acid 2.0 (0.5-2.2) mmol/L Calcium (8.5-10.5) mg/dL Magnesium (1.7-2.3) mg/dL Total Bilirubin (0.15-1.2) mg/dL AST (0-32) U/L ALT (0-33) U/L Alkaline Phosphata se (35-105) IU/L Troponin I 6 Hour (0-10) ng/mL Troponin I Hi Sens Del (0-12) ng/L Troponin T Baselin e (0-10) ng/mL Troponin T 120 Min igiugig 7.13 (0-10) ng/mL Delta Troponin T -0.87 L (0-10) ABS# NT-Pro-B Natriuret Pep (0-125) pg/mL Total Protein (6.6-8.7) g/dL Albumin (3.5-5.2) g/dL Globulin (1.3-4.6) g/dL Lipase (13-60) U/L TSH (0.27-4.20) uIU/ mL Urine Color (Yellow) Urine Appearance (CLEAR) Urine pH (5-7) Ur Specific Gravit y (1.005-1.030) Urine Protein (Negative) Urine Glucose (UA) (Normal) Urine Ketones (Negative) Urine Blood (Negative) Urine Nitrate (Negative) Urine Bilirubin (NEGATIVE) Urine Urobilinogen (Negative) mg/dL Ur Leukocyte Liset ase (Negative) Urine RBC (0-2) /hpf Urine WBC (0-5) /hpf Ur Squamous Epith Cells (0-5) Ur Transition Epit h Cell /hpf Urine Bacteria (NONE) Serum Ketones (Negative) Hepatitis A IgM Ab (Nonreactive) Hep Bs Antigen (Nonreactive) Hep B Core IgM Ab (Nonreactive) Hepatitis C Antibo dy (Nonreactive) Influenza Type A A g (Negative) POC Influenza B Ag (Negative) 08/22/19 08/22/19 08/22/19 Range/Units 10:14 10:14 17:08 WBC (4.0-10.0) 10^3/ uL RBC (4.1-5.3) 10^6/u L Hgb (11.5-15.3) g/dL Hct (37.0-47.0) % MCV (81-99) fL MCH (28.0-34.0) pg MCHC (30.0-36.0) g/dL RDW (12.1-15.1) % Plt Count (130-400) 10^3/c mm MPV (7.4-10.4) fL Neut % (Auto) % Lymph % (Auto) % Beauregard % (Auto) % Eos % (Auto) % Baso % (Auto) % Neut # (Auto) (1.8-7.7) 10^3/u L Lymph # (Auto) (0.8-4.8) 10^3/u L Bea[place]gard # (Auto) (0.2-0.9) 10^3/u L Eos # (Auto) (0.0-0.8) 10^3/u L Baso # (Auto) (0.0-0.1) 10^3/u L Nucleated RBC % (a uto) % Nucleated RBCs # /100WBC Specimen Type Sample Site ABG pH (7.35-7.45) ABG pCO2 (35-45) mmHg ABG pO2 (80.0-100.0) mmH g ABG HCO3 (22-26) mmol/L ABG Base Excess (-2.0-2.0) mmol/ L Damian Test Hematocrit (37-47) % O2 Delivery Device Eap Clinician ID Sodium (136-145) mmol/L Potassium (3.5-5.1) mmol/L Chloride (98-107) mmol/L Carbon Dioxide (22-29) mmol/L Anion Gap (5-19) BUN (8-23) mg/dL Creatinine (0.5-0.9) mg/dL GFR Calculation (90-130) mL/min Glucose (65-115) mg/dL POC Glucose 160 (70-110) mg/dL Lactic Acid (0.5-2.2) mmol/L Calcium (8.5-10.5) mg/dL Magnesium (1.7-2.3) mg/dL Total Bilirubin (0.15-1.2) mg/dL AST (0-32) U/L ALT (0-33) U/L Alkaline Phosphata se (35-105) IU/L Troponin I 6 Hour 7.49 (0-10) ng/mL Troponin I Hi Sens Del -0.51 L (0-12) ng/L Troponin T Baselin e (0-10) ng/mL Troponin T 120 Min igiugig (0-10) ng/mL Delta Troponin T (0-10) ABS# NT-Pro-B Natriuret Pep 85 (0-125) pg/mL Total Protein (6.6-8.7) g/dL Albumin (3.5-5.2) g/dL Globulin (1.3-4.6) g/dL Lipase (13-60) U/L TSH 4.14 (0.27-4.20) uIU/ mL Urine Color (Yellow) Urine Appearance (CLEAR) Urine pH (5-7) Ur Specific Gravit y (1.005-1.030) Urine Protein (Negative) Urine Glucose (UA) (Normal) Urine Ketones (Negative) Urine Blood (Negative) Urine Nitrate (Negative) Urine Bilirubin (NEGATIVE) Urine Urobilinogen (Negative) mg/dL Ur Leukocyte Liset ase (Negative) Urine RBC (0-2) /hpf Urine WBC (0-5) /hpf Ur Squamous Epith Cells (0-5) Ur Transition Epit h Cell /hpf Urine Bacteria (NONE) Serum Ketones (Negative) Hepatitis A IgM Ab (Nonreactive) Hep Bs Antigen (Nonreactive) Hep B Core IgM Ab (Nonreactive) Hepatitis C Antibo dy (Nonreactive) Influenza Type A A g (Negative) POC Influenza B Ag (Negative) 08/22/19 08/22/19 08/23/19 Range/Units 17:10 20:52 05:28 WBC 6.0 (4.0-10.0) 10^3/ uL RBC 3.77 L (4.1-5.3) 10^6/u L Hgb 9.9 L (11.5-15.3) g/dL Hct 33.1 L (37.0-47.0) % MCV 87.8 (81-99) fL MCH 26.3 L (28.0-34.0) pg MCHC 29.9 L (30.0-36.0) g/dL RDW 14.7 (12.1-15.1) % Plt Count 214 (130-400) 10^3/c mm MPV 10.0 (7.4-10.4) fL Neut % (Auto) 60.8 % Lymph % (Auto) 26.5 % Beauregard % (Auto) 10.2 % Eos % (Auto) 1.7 % Baso % (Auto) 0.5 % Neut # (Auto) 3.6 (1.8-7.7) 10^3/u L Lymph # (Auto) 1.6 (0.8-4.8) 10^3/u L Bea[place]gard # (Auto) 0.6 (0.2-0.9) 10^3/u L Eos # (Auto) 0.1 (0.0-0.8) 10^3/u L Baso # (Auto) 0.0 (0.0-0.1) 10^3/u L Nucleated RBC % (a uto) 0 % Nucleated RBCs # 0.0 /100WBC Specimen Type Sample Site ABG pH (7.35-7.45) ABG pCO2 (35-45) mmHg ABG pO2 (80.0-100.0) mmH g ABG HCO3 (22-26) mmol/L ABG Base Excess (-2.0-2.0) mmol/ L Damian Test Hematocrit (37-47) % O2 Delivery Device Eap Clinician ID Sodium (136-145) mmol/L Potassium (3.5-5.1) mmol/L Chloride (98-107) mmol/L Carbon Dioxide (22-29) mmol/L Anion Gap (5-19) BUN (8-23) mg/dL Creatinine (0.5-0.9) mg/dL GFR Calculation (90-130) mL/min Glucose (65-115) mg/dL POC Glucose 81 (70-110) mg/dL Lactic Acid (0.5-2.2) mmol/L Calcium (8.5-10.5) mg/dL Magnesium (1.7-2.3) mg/dL Total Bilirubin (0.15-1.2) mg/dL AST (0-32) U/L ALT (0-33) U/L Alkaline Phosphata se (35-105) IU/L Troponin I 6 Hour (0-10) ng/mL Troponin I Hi Sens Del (0-12) ng/L Troponin T Baselin e (0-10) ng/mL Troponin T 120 Min igiugig (0-10) ng/mL Delta Troponin T (0-10) ABS# NT-Pro-B Natriuret Pep (0-125) pg/mL Total Protein (6.6-8.7) g/dL Albumin (3.5-5.2) g/dL Globulin (1.3-4.6) g/dL Lipase (13-60) U/L TSH (0.27-4.20) uIU/ mL Urine Color Yellow (Yellow) Urine Appearance Hazy A (CLEAR) Urine pH 5 (5-7) Ur Specific Gravit y 1.005 (1.005-1.030) Urine Protein Neg (Negative) Urine Glucose (UA) Norm (Normal) Urine Ketones Negative (Negative) Urine Blood Neg (Negative) Urine Nitrate Negative (Negative) Urine Bilirubin Neg (NEGATIVE) Urine Urobilinogen Norm (Negative) mg/dL Ur Leukocyte Liset ase 1+ H (Negative) Urine RBC None (0-2) /hpf Urine WBC 15-25 H (0-5) /hpf Ur Squamous Epith Cells 25-40 H (0-5) Ur Transition Epit h Cell 0-4 /hpf Urine Bacteria 2+ H (NONE) Serum Ketones (Negative) Hepatitis A IgM Ab (Nonreactive) Hep Bs Antigen (Nonreactive) Hep B Core IgM Ab (Nonreactive) Hepatitis C Antibo dy (Nonreactive) Influenza Type A A g (Negative) POC Influenza B Ag (Negative) 08/23/19 08/23/19 08/23/19 Range/Units 05:28 05:28 06:29 WBC (4.0-10.0) 10^3/ uL RBC (4.1-5.3) 10^6/u L Hgb (11.5-15.3) g/dL Hct (37.0-47.0) % MCV (81-99) fL MCH (28.0-34.0) pg MCHC (30.0-36.0) g/dL RDW (12.1-15.1) % Plt Count (130-400) 10^3/c mm MPV (7.4-10.4) fL Neut % (Auto) % Lymph % (Auto) % Beauregard % (Auto) % Eos % (Auto) % Baso % (Auto) % Neut # (Auto) (1.8-7.7) 10^3/u L Lymph # (Auto) (0.8-4.8) 10^3/u L Bea[place]gard # (Auto) (0.2-0.9) 10^3/u L Eos # (Auto) (0.0-0.8) 10^3/u L Baso # (Auto) (0.0-0.1) 10^3/u L Nucleated RBC % (a uto) % Nucleated RBCs # /100WBC Specimen Type Sample Site ABG pH (7.35-7.45) ABG pCO2 (35-45) mmHg ABG pO2 (80.0-100.0) mmH g ABG HCO3 (22-26) mmol/L ABG Base Excess (-2.0-2.0) mmol/ L Damian Test Hematocrit (37-47) % O2 Delivery Device Eap Clinician ID Sodium 133 L (136-145) mmol/L Potassium 4.2 (3.5-5.1) mmol/L Chloride 102 (98-107) mmol/L Carbon Dioxide 21 L (22-29) mmol/L Anion Gap 14.2 (5-19) BUN 9 (8-23) mg/dL Creatinine 0.8 (0.5-0.9) mg/dL GFR Calculation 72.2 L (90-130) mL/min Glucose 139 H (65-115) mg/dL POC Glucose 147 (70-110) mg/dL Lactic Acid (0.5-2.2) mmol/L Calcium 8.6 (8.5-10.5) mg/dL Magnesium 1.8 (1.7-2.3) mg/dL Total Bilirubin 0.6 (0.15-1.2) mg/dL AST 279 H (0-32) U/L ALT 135 H (0-33) U/L Alkaline Phosphata se 201 H (35-105) IU/L Troponin I 6 Hour (0-10) ng/mL Troponin I Hi Sens Del (0-12) ng/L Troponin T Baselin e (0-10) ng/mL Troponin T 120 Min igiugig (0-10) ng/mL Delta Troponin T (0-10) ABS# NT-Pro-B Natriuret Pep (0-125) pg/mL Total Protein 8.0 (6.6-8.7) g/dL Albumin 2.8 L (3.5-5.2) g/dL Globulin 5.2 H (1.3-4.6) g/dL Lipase (13-60) U/L TSH (0.27-4.20) uIU/ mL Urine Color (Yellow) Urine Appearance (CLEAR) Urine pH (5-7) Ur Specific Gravit y (1.005-1.030) Urine Protein (Negative) Urine Glucose (UA) (Normal) Urine Ketones (Negative) Urine Blood (Negative) Urine Nitrate (Negative) Urine Bilirubin (NEGATIVE) Urine Urobilinogen (Negative) mg/dL Ur Leukocyte Liset ase (Negative) Urine RBC (0-2) /hpf Urine WBC (0-5) /hpf Ur Squamous Epith Cells (0-5) Ur Transition Epit h Cell /hpf Urine Bacteria (NONE) Serum Ketones (Negative) Hepatitis A IgM Ab (Nonreactive) Hep Bs Antigen (Nonreactive) Hep B Core IgM Ab (Nonreactive) Hepatitis C Antibo dy (Nonreactive) Influenza Type A A g (Negative) POC Influenza B Ag (Negative) 08/23/19 08/23/19 Range/Units 11:45 16:41 WBC (4.0-10.0) 10^3/ uL RBC (4.1-5.3) 10^6/u L Hgb (11.5-15.3) g/dL Hct (37.0-47.0) % MCV (81-99) fL MCH (28.0-34.0) pg MCHC (30.0-36.0) g/dL RDW (12.1-15.1) % Plt Count (130-400) 10^3/c mm MPV (7.4-10.4) fL Neut % (Auto) % Lymph % (Auto) % Beauregard % (Auto) % Eos % (Auto) % Baso % (Auto) % Neut # (Auto) (1.8-7.7) 10^3/u L Lymph # (Auto) (0.8-4.8) 10^3/u L Bea[place]gard # (Auto) (0.2-0.9) 10^3/u L Eos # (Auto) (0.0-0.8) 10^3/u L Baso # (Auto) (0.0-0.1) 10^3/u L Nucleated RBC % (a uto) % Nucleated RBCs # /100WBC Specimen Type Sample Site ABG pH (7.35-7.45) ABG pCO2 (35-45) mmHg ABG pO2 (80.0-100.0) mmH g ABG HCO3 (22-26) mmol/L ABG Base Excess (-2.0-2.0) mmol/ L Damian Test Hematocrit (37-47) % O2 Delivery Device Eap Clinician ID Sodium (136-145) mmol/L Potassium (3.5-5.1) mmol/L Chloride (98-107) mmol/L Carbon Dioxide (22-29) mmol/L Anion Gap (5-19) BUN (8-23) mg/dL Creatinine (0.5-0.9) mg/dL GFR Calculation (90-130) mL/min Glucose (65-115) mg/dL POC Glucose 149 97 (70-110) mg/dL Lactic Acid (0.5-2.2) mmol/L Calcium (8.5-10.5) mg/dL Magnesium (1.7-2.3) mg/dL Total Bilirubin (0.15-1.2) mg/dL AST (0-32) U/L ALT (0-33) U/L Alkaline Phosphata se (35-105) IU/L Troponin I 6 Hour (0-10) ng/mL Troponin I Hi Sens Del (0-12) ng/L Troponin T Baselin e (0-10) ng/mL Troponin T 120 Min igiugig (0-10) ng/mL Delta Troponin T (0-10) ABS# NT-Pro-B Natriuret Pep (0-125) pg/mL Total Protein (6.6-8.7) g/dL Albumin (3.5-5.2) g/dL Globulin (1.3-4.6) g/dL Lipase (13-60) U/L TSH (0.27-4.20) uIU/ mL Urine Color (Yellow) Urine Appearance (CLEAR) Urine pH (5-7) Ur Specific Gravit y (1.005-1.030) Urine Protein (Negative) Urine Glucose (UA) (Normal) Urine Ketones (Negative) Urine Blood (Negative) Urine Nitrate (Negative) Urine Bilirubin (NEGATIVE) Urine Urobilinogen (Negative) mg/dL Ur Leukocyte Liset ase (Negative) Urine RBC (0-2) /hpf Urine WBC (0-5) /hpf Ur Squamous Epith Cells (0-5) Ur Transition Epit h Cell /hpf Urine Bacteria (NONE) Serum Ketones (Negative) Hepatitis A IgM Ab (Nonreactive) Hep Bs Antigen (Nonreactive) Hep B Core IgM Ab (Nonreactive) Hepatitis C Antibo dy (Nonreactive) Influenza Type A A g (Negative) POC Influenza B Ag (Negative) Discharge Plan Discharge Admit Provider: Wesley Mera Clinical Impression: Nausea, Transaminitis, Hyponatremia, Palpitations, Hypomagnesemia, Diabetic foot ulcer Condition: Stable Discharge Orders: Discharge Order (Routine); Ordered 08/25/19 Ordered By: Freda Boyer Discharge Diet: Usual diet, Cardiac, Diabetic and Low Cholesterol Discharge Activity: Resume usual activity Interventions: ED Discharge Assessment Last Done: 08/22/19 11:39 Discharge Date/Time: 08/22/19 12:10 Sign Out Sign Out Data: Patient Sign Out occurred on 08/22/19 at 06:16. Patient's care was discussed, and care was transferred from Liza Zuniga to Too Ramirez DO. Sign Out Comment: Case turned over to Dr. Ramirez at change of shift. 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
--- NOTE | 2019-08-22 03:40 | XRR_ITS ---
PROCEDURE INFORMATION: Exam: XR Chest, 1 View Exam date and time: 08/22/2019 4:18 AM Age: 63 years old Clinical indication: Shortness of breath; Chest pain; Type not specified; Prior surgery; Surgery type: Stents; Additional info: Cough TECHNIQUE: Imaging protocol: XR of the chest Views: 1 view. COMPARISON: CR XR chest 1V portable [id number] 08/13/2019 8:08 PM FINDINGS: Lungs: Lungs are clear. Pleural space: There is no pleural effusion or pneumothorax. Heart/Mediastinum: Cardiomediastinal contours are unremarkable. Bones/joints: Bones are unremarkable. XR/XR chest 1V portable [id number] IMPRESSION: No pathologic findings.
--- NOTE | 2019-08-22 03:41 | ECG_ITS ---
Measurements Intervals [place] Rate: 70 P: 3 MI: 175 QRS: 18 QRSD: 100 T: 43 QT: 472 QTc: 512 SINUS RHYTHM PROLONGED QT INTERVAL Compared to ECG 08/13/2019 22:45:34 Prolonged QT interval now present ST (T wave) deviation no longer present Electronically Signed On 08-22-2019 20:24:38 ECHOMETER ENGINEER by Anne Marie Musa M.D. [email or web address]
[2019-08-22] MEDS: sodium chloride 0.9% 1,000 ML 100 ML IV (04:00)
[2019-08-22 04:22] LABS: Basophils % 0.4 %; Eosinophils # 0.1 10^3/uL (0.0-0.8); Eosinophils % 1.1 %; Hemoglobin 11.7 g/dL (11.5-15.3); Lymphocytes # 2.4 10^3/uL (0.8-4.8); Lymphocytes % 34.4 %; Mean Corpuscular HGB Conc 30.8 g/dL (30.0-36.0); Mean Corpuscular Hemoglobin 26.2 pg (28.0-34.0); Mean Platelet Volume 10.9 fL (7.4-10.4); Monocytes # 0.5 10^3/uL (0.2-0.9); Monocytes % 7.4 %; Neutrophils # 3.9 10^3/uL (1.8-7.7); Neutrophils % 56.1 %; Nucleated Red Blood Cells % 0 %; Platelet Count 246 10^3/cmm (130-400); Red Blood Count 4.47 10^6/uL (4.1-5.3); Red Cell Distribution Width 14.4 % (12.1-15.1)
--- NOTE | 2019-08-22 04:30 | PC.NURSE ---
Patient bp low and she statesshe doesnt feel like getting up for ortho statics,
[2019-08-22 04:43] LABS: Troponin(5th) Baseline 8 ng/mL (0-10)
[2019-08-22 04:44] LABS: Alanine Aminotransferase 145 U/L (0-33); Albumin Level 3.2 g/dL (3.5-5.2); Alkaline Phosphatase 241 IU/L (35-105); Anion Gap 18.5 (5-19); Aspartate Amino Transferase 262 U/L (0-32); Blood Urea Nitrogen 12 mg/dL (8-23); Calcium 9.3 mg/dL (8.5-10.5); Carbon Dioxide 19 mmol/L (22-29); Chloride 97 mmol/L (98-107); Globulin 6.4 g/dL (1.3-4.6); Glucose 190 mg/dL (65-115); Lipase 63 U/L (13-60); Magnesium 1.6 mg/dL (1.7-2.3); Potassium 3.5 mmol/L (3.5-5.1); Sodium 131 mmol/L (136-145); Total Bilirubin 0.6 mg/dL (0.15-1.2); Total Protein 9.6 g/dL (6.6-8.7)
--- NOTE | 2019-08-22 05:05 | CTR_ITS ---
PROCEDURE INFORMATION: Exam: CT Abdomen And Pelvis With Contrast Exam date and time: 08/22/2019 5:23 AM Age: 63 years old Clinical indication: Abdominal pain; Generalized; Prior surgery; Surgery date: 6+ months; Surgery type: Cholecystectomy, hysterectomy, appendectomy TECHNIQUE: Imaging protocol: Computed tomography of the abdomen and pelvis with intravenous contrast. Total DLP: 985.07 mGy-cm Radiation optimization: All CT scans at this facility use at least one of these dose optimization techniques: automated exposure control; mA and/or kV adjustment per patient size (includes targeted exams where dose is matched to clinical indication); or iterative reconstruction. Contrast material: OMNI 300; Contrast volume: 95 ml; Contrast route: 20G; COMPARISON: CT abdomen pelvis w con* [id number] 08/13/2019 10:18 PM FINDINGS: Lungs: There is subsegmental atelectasis in the lung bases. There is a benign calcified granuloma in the left lower lobe. Liver: The liver is normal. Gallbladder and bile ducts: The gallbladder is absent. There is no intrahepatic or extrahepatic bile duct dilation. Pancreas: The pancreas is unremarkable. Spleen: The spleen is mildly enlarged. Adrenals: The adrenal glands are unremarkable. Kidneys and ureters: The kidneys are unremarkable. No hydronephrosis or stones. No ureteral dilation. Stomach and bowel: The stomach is unremarkable. The small bowel is nondilated. There is no sign of inflammation. There is mild distal descending and sigmoid colonic diverticulosis without evidence of diverticulitis. Appendix: The appendix is absent. Intraperitoneal space: There is no free air or significant intraperitoneal free fluid. Vasculature: There is moderate aortic atherosclerotic disease. There is no aortic dissection or aneurysm. Lymph nodes: No retroperitoneal or mesenteric lymphadenopathy. Mildly enlarged bilateral external iliac nodes. No enlarged inguinal nodes. Bladder: The urinary bladder is unremarkable. Reproductive: The uterus is absent. There is no adnexal mass or large cyst. Bones/joints: There is moderate degenerative disease in the lumbar spine. Mild convex left lumbar scoliosis. The pelvis and hips are unremarkable. Soft tissues: The abdominal wall is intact. CT/CT abdomen pelvis w con* [id number] IMPRESSION: 1. No acute findings. 2. Incidental findings above. Radiation Dose CTDIVOL = (mGy): DLP = 985.07 (mGy-cm)
[2019-08-22] MEDS: magnesium sulfate premix 2 GM/50 ML PIGGYBACK IV (05:23)
[2019-08-22 05:26] LABS: ABG PCO2 32.2 mmHg (35-45); ABG PH Result 7.45 (7.35-7.45); Arterial Blood Gas Hematocrit 31.2 % (37-47); Base Excess ABG -1.5 mmol/L (-2.0-2.0); Blood Gas Allen Test Pos; Blood Gas Sample Site Brachial, left; Blood Gas Sample Type Arterial; HCO3 ABG 22.1 mmol/L (22-26); Oxygen Device ROOM AIR; PO2 ABG 70.1 mmHg (80.0-100.0)
[2019-08-22 05:34] LABS: Influenza A by IFA Negative (Negative); Influenza B by IFA Negative (Negative)
[2019-08-22] MEDS: iohexol 300 mg/mL 100 mL Btl IV (05:48)
[2019-08-22 06:21] LABS: Hepatitis A Antibody IgM. Non-Reactive (Nonreactive); Hepatitis B Core IgM Non-Reactive (Nonreactive); Hepatitis B Surface Antigen. Non-Reactive (Nonreactive); Hepatitis C Virus Antibody Non-Reactive (Nonreactive)
[2019-08-22 06:43] LABS: Ketone (Acetest) Serum Negative (Negative)
[2019-08-22 07:30] LABS: Troponin 5 2HR 7.13 ng/mL (0-10)
[2019-08-22 07:33] LABS: Troponin 5 2HR Delta -0.87 ABS# (0-10)
--- NOTE | 2019-08-22 09:36 | PC.NURSE ---
patient ekg completed
[2019-08-22 10:51] LABS: Troponin 5 6HR 7.49 ng/mL (0-10)
[2019-08-22 10:53] LABS: Troponin 5 6HR Delta -0.51 ng/L (0-12)
--- NOTE | 2019-08-22 11:00 | PC.NURSE ---
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
[2019-08-22] MEDS: sodium chlor 0.9% + KCl 20 mEq 20 MEQ/1,000 ML BAG 50 MEQ IV ×2 (12:15→18:03)
--- NOTE | 2019-08-22 12:25 | P.HP_ITS ---
Providers/Chief Complaint Admitting Physician: Catalina Mera MD Primary Care Provider: Rad Branham DO Chief Complaint: diaphoresis / heart palpatations History of Present Illness Luh Ray is a 63 year old female who presents to the emergency department, multiple times in the last week with a complaint today of dizziness, nausea. She reports she is thrown up several times. She relates she has a headache. Denies any recent fall or head injury. Reports she had a fever last week. No diarrhea. No blood in emesis, black or tarry stool, or hematochezia. Reports she has some right upper quadrant pain with palpation but this is been going on at least a year. She believes her nausea and vomiting has been going on a month. She reports she has had a cough, productive at times for the last several weeks as well. She has had some shortness of breath. Review of Systems General: Reports: 10 or more systems reviewed and unremarkable except in HPI and below Const: Reports: fever Eyes: Denies: blurry vision ENMT: Reports: painful swallowing (Difficult swallowing) Card: Reports: chest pain and palpitations Resp: Reports: shortness of breath and productive cough GI: Reports: abdominal pain : Denies: difficulty urinating Musc: Reports: back pain Skin/Breast: Denies: rash Neuro: Reports: headache and dizziness Psych: Denies: depression Endo: Denies: excessive urination Aj/Lymph: Denies: easy bruising All/Imm: Denies: hives Medications/Allergies Home Medications Medication Instructions Recorded Confirmed Last Taken Type Effexor XR 150 mg PO DAILY 08/22/19 08/22/19 08/21/19 History atorvastatin 40 mg PO DAILY 08/22/19 08/22/19 08/21/19 History insulin aspart U-100 [Novolog See Rx Instructions .ROUTE .COMPLEX 08/22/19 08/22/19 08/21/19 History Flexpen U-100 Insulin] insulin detemir U-100 [Levemir 10 unit SUBCUT BID 08/22/19 08/22/19 08/21/19 History FlexTouch U-100 Insuln] loratadine 10 mg PO DAILY 08/22/19 08/22/19 08/21/19 History Allergies Allergy/AdvReac Type Severity Reaction Status Date / Time meperidine [From Demerol] Allergy Severe Unconscious Verified 07/15/19 19:30 amoxicillin Allergy Intermediate Rash Verified 08/18/19 15:04 pentazocine [From Talwin] Allergy Unknown Unknown Verified 07/15/19 19:27 prochlorperazine Allergy Unknown Unknown Verified 07/15/19 19:26 [From Compazine] acetaminophen [From NyQuil] Allergy ADR-Agitate Verified 08/22/19 00:20 d dextromethorphan Allergy ADR-Agitate Verified 08/22/19 00:20 [From NyQuil] d doxylamine [From NyQuil] Allergy ADR-Agitate Verified 08/22/19 00:20 d pseudoephedrine [From NyQuil] Allergy ADR-Agitate Verified 08/22/19 00:20 d PFSH Acute PFSH: Medical History (Updated 08/22/19 @ 12:46 by Wesley Mera MD) COPD (chronic obstructive pulmonary disease) Coronary artery disease Depression with anxiety Diastolic heart failure Hyperlipidemia Hypertension Hypothyroidism Type 2 diabetes mellitus Surgical History (Updated 08/22/19 @ 12:30 by Wesley Mera MD) History of appendectomy History of cholecystectomy History of hysterectomy History of uvulopalatopharyngoplasty 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 HEENT: Pupils equally round. Oropharynx is clear. Uvula is missing. Neck is supple no lymphadenopathy or thyromegaly Cardiovascular regular rate and rhythm without murmur, no S3 or S4 Lungs a few coarse rhonchi bibasilar. No wheezing. Abdomen is soft with positive bowel sounds. No obvious organomegaly. Tenderness is present in the right upper quadrant. was deferred Extremities trace bilateral edema, cap refill brisk. Right foot, great toe demonstrates some fissuring, no drainage, no purulence, plantar surface. Cap refill intact. Skin no rash Neuro no focal deficits Data : 08/22/19 04:10 08/22/19 04:10 Other data: EKG demonstrates sinus rhythm, normal axis, no acute changes, QTC of 512, which is prolonged Magnesium low at 1.6. Lipase is slightly high. Urinalysis has not been repeated but approximately 10 days ago this was normal. Acute hepatitis panel was negative A&P Assessment and plan (1) Nausea: At this point etiology is not certain. As this is been going on for 1 month, there could be a concern for diabetic gastroparesis. However, with transaminitis with AST, ALT, alk phos elevation will need MRCP. Increase Protonix to twice daily. Could consider EGD. Status: Acute Code(s): R11.0 - Nausea (2) Transaminitis: Will check MRCP. Hepatitis panel negative. CT no dilated ducts. HIstory of malini, but could still have retained stone/sludge Status: Acute Code(s): R74.0 - Nonspecific elevation of levels of transaminase and lactic acid dehydrogenase [LDH] (3) Palpitations: Replace magnesium. Check TSH. Note patient has slightly long QT interval Status: Acute Code(s): R00.2 - Palpitations (4) Diabetic foot ulcer: Check x-ray. No evidence of acute infection on inspection Status: Acute Code(s): E11.621 - Type 2 diabetes mellitus with foot ulcer; L97.509 - Non-pressure chronic ulcer of other part of unspecified foot with unspecified severity (5) Hypomagnesemia: Replace Status: Acute Code(s): E83.42 - Hypomagnesemia (6) Hyponatremia: Reduce fluids, monitor closely. Check BNP. Status: Acute Code(s): E87.1 - Hypo-osmolality and hyponatremia Additional A&P Information Type 2 diabetes. Sliding scale insulin History of diastolic heart failure, appears compensated currently History of COPD. No evidence of exacerbation. Continue nebs History of hypertension History of hypothyroidism Hyperlipidemia, hold statin secondary to significant transaminitis Depression/anxiety History of coronary disease. Troponin negative. Lovenox for DVT prophylaxis Full code Attestations Medical Necessity Statement*: Will need less than 2 midnight stay for evaluation of nausea Time Spent in Patient Care: Greater than 35 minutes Coding Level of Care Code Acute Crop Production Advisor for Jeff Fwd Diagnoses Nausea R11.0 Transaminitis R74.0 Palpitations R00.2 Diabetic foot ulcer E11.621; L97.509 Hypomagnesemia E83.42 Hyponatremia E87.1
--- NOTE | 2019-08-22 12:45 | XRR_ITS ---
PROCEDURE INFORMATION: Exam: XR Right Foot Exam date and time: 08/22/2019 12:46 PM Age: 63 years old Clinical indication: Condition or disease; Other: Diabetic ulcer; Additional info: Diabetic foot ulcer TECHNIQUE: Imaging protocol: XR Right foot. Views: 1 or 2 views. COMPARISON: No relevant prior studies available. FINDINGS: Bones/joints: Hindfoot -midfoot and midfoot-forefoot articulations normal. Metatarsals and phalanges without an acute process. Subtalar and tibiotalar joint normal. degenerative changes at the first metatarsal phalangeal joint. Mild. Spur formation at the insertion of the plantar aponeurosis. Soft tissues: Normal. XR/XR foot RT 2V 38550 IMPRESSION: 1. Degenerative changes at the first metatarsal phalangeal joint. Mild. 2. Spur formation at the insertion of the plantar aponeurosis.
[2019-08-22 13:30] LABS: NT Pro B Type Natriuretic Pept 85 pg/mL (0-125); Thyroid Stimulating Hormone 4.14 uIU/mL (0.27-4.20)
[2019-08-22] MEDS: enoxaparin 40 mg/0.4 mL Syringe SUBCUT (14:58)
[2019-08-22] MEDS: oxyCODONE 5 mg IR Tab/Cap PO (14:59)
[2019-08-22] MEDS: ipratropium-albuterol 3 mL Neb INHALATION ×3 (15:10→23:22)
[2019-08-22 17:23] LABS: Glucose Point of Care 160 mg/dL (70-110)
[2019-08-22 17:42] LABS: Bilirubin Urine Neg (NEGATIVE); Blood Urine Neg (Negative); Glucose Urine UA Norm (Normal); Ketones Urine Negative (Negative); Leukocyte Esterase Urine 1+ (Negative); Nitrate Urine Negative (Negative); Protein Urine Neg (Negative); Specific Gravity, Urine 1.005 (1.005-1.030); Urine Appearance Hazy (CLEAR); Urine Color Yellow (Yellow); Urobilinogen Urine Norm (Negative); pH Urine 5 (5-7)
[2019-08-22 17:50] LABS: Squamous Epithelial Cell Urine 25-40 (0-5); WBC Urine 15-25 /hpf (0-5)
[2019-08-22 17:51] LABS: Bacteria Urine 2+; Transitional Epi Cells Urine 0-4 /hpf
[2019-08-22 17:52] LABS: Add Urine Culture? No
[2019-08-22] MEDS: metoprolol tartrate 25 mg Tablet PO (18:02)
[2019-08-22] MEDS: pantoprazole DR 40 mg Tablet PO (18:02)
[2019-08-22] MEDS: trazodone 100 mg Tablet PO (21:13)
[2019-08-22 21:26] LABS: Glucose Point of Care 81 mg/dL (70-110)
[2019-08-23] VITALS (20 sets, daily range): BP systolic 90–144; BP diastolic 55–88; PULSE 52–87; RESP 12–20; TEMP 36.4–36.9; O2SAT 86–99
[2019-08-23] MEDS: ipratropium-albuterol 3 mL Neb INHALATION ×6 (03:05→23:21)
[2019-08-23 05:48] LABS: Basophils % 0.5 %; Eosinophils # 0.1 10^3/uL (0.0-0.8); Eosinophils % 1.7 %; Hematocrit 33.1 % (37.0-47.0); Hemoglobin 9.9 g/dL (11.5-15.3); Lymphocytes # 1.6 10^3/uL (0.8-4.8); Lymphocytes % 26.5 %; Mean Corpuscular HGB Conc 29.9 g/dL (30.0-36.0); Mean Corpuscular Hemoglobin 26.3 pg (28.0-34.0); Mean Corpuscular Volume 87.8 fL (81-99); Monocytes # 0.6 10^3/uL (0.2-0.9); Monocytes % 10.2 %; Neutrophils # 3.6 10^3/uL (1.8-7.7); Neutrophils % 60.8 %; Nucleated Red Blood Cells % 0 %; Platelet Count 214 10^3/cmm (130-400); Red Blood Count 3.77 10^6/uL (4.1-5.3); Red Cell Distribution Width 14.7 % (12.1-15.1)
[2019-08-23 06:07] LABS: Alanine Aminotransferase 135 U/L (0-33); Albumin Level 2.8 g/dL (3.5-5.2); Alkaline Phosphatase 201 IU/L (35-105); Anion Gap 14.2 (5-19); Aspartate Amino Transferase 279 U/L (0-32); Carbon Dioxide 21 mmol/L (22-29); Chloride 102 mmol/L (98-107); Globulin 5.2 g/dL (1.3-4.6); Glomerular Filtration Rate 72.2 mL/min (90-130); Glucose 139 mg/dL (65-115); Potassium 4.2 mmol/L (3.5-5.1); Sodium 133 mmol/L (136-145); Total Bilirubin 0.6 mg/dL (0.15-1.2)
[2019-08-23 06:31] LABS: Blood Urea Nitrogen 9 mg/dL (8-23); Calcium 8.6 mg/dL (8.5-10.5)
[2019-08-23 06:35] LABS: Glucose Point of Care 147 mg/dL (70-110)
[2019-08-23 06:36] LABS: Magnesium 1.8 mg/dL (1.7-2.3)
[2019-08-23] MEDS: aspirin 81 mg EC Tablet PO (08:19)
[2019-08-23] MEDS: metoprolol tartrate 25 mg Tablet PO ×2 (08:19→17:59)
[2019-08-23] MEDS: bumetanide 1 mg Tablet PO (08:19)
[2019-08-23] MEDS: loratadine 10 mg Tablet PO (08:19)
[2019-08-23] MEDS: fluticasone nasal spray 16gm Btl 2 SPRAY INTRANASAL (08:20)
[2019-08-23] MEDS: oxyCODONE 5 mg IR Tab/Cap PO ×2 (08:21→20:30)
[2019-08-23] MEDS: pantoprazole DR 40 mg Tablet PO ×2 (08:26→18:00)
[2019-08-23] MEDS: venlafaxine ER (24HR) 150 mg Capsule PO (08:28)
[2019-08-23] MEDS: ondansetron 2 mg/ML SDV 2 mL 4 MG IVP (10:44)
[2019-08-23] MEDS: isosorbide mononitrate ER 30 mg Tablet PO (10:57)
[2019-08-23] MEDS: enoxaparin 40 mg/0.4 mL Syringe SUBCUT (12:23)
[2019-08-23 12:59] LABS: Glucose Point of Care 149 mg/dL (70-110)
[2019-08-23] MEDS: sodium chlor 0.9% + KCl 20 mEq 20 MEQ/1,000 ML BAG 50 MEQ IV (15:41)
[2019-08-23 16:47] LABS: Glucose Point of Care 97 mg/dL (70-110)
--- NOTE | 2019-08-23 18:58 | P.PN_ITS ---
Subjective Subjective: Interval history: Luh reports she is feeling a little bit better, although still weak. Wants to try to eat. Still has a little bit of right upper quadrant pain. Medications: Reviewed: Yes Vitals/I&O/Wt Last Vital Signs Temp 98.0 F 08/23/19 15:46 Pulse 62 08/23/19 16:19 Resp 16 08/23/19 16:11 BP 90/55 08/23/19 15:46 Pulse Ox 95 08/23/19 16:11 08/23/19 08/23/19 08/23/19 06:59 14:59 22:59 Intake Total 740 / 2575.833 1294.167 / 1294.167 Output Total 1350 / 2050 900 / 900 Balance -610 / 525.833 394.167 / 394.167 Weight last 48 hrs Weight 81.647 kg Physical Exam Narrative: EXAM NARRATIVE: General exam no apparent distress Cardiovascular regular rate and rhythm without murmur, no S3 or S4 Lungs a few coarse rhonchi bibasilar. No wheezing. Abdomen is soft with positive bowel sounds. No obvious organomegaly. Tenderness is present in the right upper quadrant. Extremities trace bilateral edema, cap refill brisk. Right foot, great toe demonstrates some fissuring, no drainage, no purulence, plantar surface. Cap refill intact. Data : 08/23/19 05:28 08/23/19 05:28 A&P Assessment and plan (1) Nausea: At this point etiology is not certain. As this is been going on for 1 month, there could be a concern for diabetic gastroparesis. However, with transaminitis with AST, ALT, alk phos elevation will need MRCP. According to the patient does have been planned previously. Continue Protonix 40 mg twice daily MRCP tomorrow Change to regular admission as symptoms still persistent Could consider EGD if MRCP negative Status: Acute Code(s): R11.0 - Nausea (2) Transaminitis: Check MRCP tomorrow. Note that hepatitis panel was negative, CT demonstrated no dilated ducts. She d oes have history of cholecystectomy but no current evidence of retained stone/sludge/cholangitis on any studies. Note that influenza swab was negative as well. Lipase was slightly high, recheck tomorrow Status: Acute Code(s): R74.0 - Nonspecific elevation of levels of transaminase and lactic acid dehyd rogenase [LDH] (3) Palpitations: Magnesium replaced. TSH normal. Repeat EKG as previous had prolonged QTC Status: Acute Code(s): R00.2 - Palpitations (4) Diabetic foot ulcer: Check x-ray. No evidence of acute infection on inspection Status: Acute Code(s): E11.621 - Type 2 diabetes mellitus with foot ulcer; L97.509 - Non-pressure chronic ulcer of other part of unspecified foot with unspecified severity (5) Hypomagnesemia: Replaced Status: Acute Code(s): E83.42 - Hypomagnesemia (6) Hyponatremia: Improved BNP was normal Status: Acute Code(s): E87.1 - Hypo-osmolality and hyponatremia Additional A&P Information Type 2 diabetes. Sliding scale insulin History of diastolic heart failure, appears compensated currently History of COPD. No evidence of exacerbation. Continue nebs History of hypertension History of hypothyroidism Hyperlipidemia, hold statin secondary to significant transaminitis Depression/anxiety History of coronary disease. Troponin negative. Lovenox for DVT prophylaxis Full code Attestations Medical Necessity Statement*: Needs continued hospital stay for close monitoring secondary to weakness, nausea, abnormal liver enzymes requiring MRCP Coding Level of Care Code Acute Acid Purification Equipment Operator for Chg Fwd Diagnoses Nausea R11.0 Transaminitis R74.0 Palpitations R00.2 Diabetic foot ulcer E11.621; L97.509 Hypomagnesemia E83.42 Hyponatremia E87.1
--- NOTE | 2019-08-23 19:02 | ECG_ITS ---
Measurements Intervals [place] Rate: 57 P: 0 [place]: 172 QRS: 19 QRSD: 95 T: 39 QT: 448 QTc: 438 SINUS BRADYCARDIA Compared to ECG 08/22/2019 09:36:10 Sinus rhythm no longer present Prolonged QT interval no longer present Electronically Signed On 08-24-2019 20:26:59 TALENT CONSULTANT by Anne Marie Musa M.D. [email or web address]
[2019-08-23] MEDS: trazodone 100 mg Tablet PO (20:32)
[2019-08-23 20:33] LABS: Glucose Point of Care 163 mg/dL (70-110)
[2019-08-24] VITALS (12 sets, daily range): BP systolic 92–125; BP diastolic 36–73; PULSE 52–79; RESP 16–20; TEMP 36.4–37; O2SAT 92–97
[2019-08-24] MEDS: ipratropium-albuterol 3 mL Neb INHALATION ×4 (03:23→19:58)
[2019-08-24 05:59] LABS: Basophils % 0.7 %; Eosinophils # 0.1 10^3/uL (0.0-0.8); Eosinophils % 2.9 %; Hematocrit 32.5 % (37.0-47.0); Hemoglobin 9.7 g/dL (11.5-15.3); Lymphocytes # 2.1 10^3/uL (0.8-4.8); Lymphocytes % 45.8 %; Mean Corpuscular HGB Conc 29.8 g/dL (30.0-36.0); Mean Corpuscular Hemoglobin 26.3 pg (28.0-34.0); Mean Corpuscular Volume 88.1 fL (81-99); Mean Platelet Volume 10.1 fL (7.4-10.4); Monocytes # 0.7 10^3/uL (0.2-0.9); Monocytes % 14.8 %; Neutrophils # 1.6 10^3/uL (1.8-7.7); Neutrophils % 35.6 %; Nucleated Red Blood Cells % 0 %; Platelet Count 210 10^3/cmm (130-400); Red Blood Count 3.69 10^6/uL (4.1-5.3); Red Cell Distribution Width 14.7 % (12.1-15.1); White Blood Count 4.5 10^3/uL (4.0-10.0)
[2019-08-24 06:29] LABS: Alanine Aminotransferase 117 U/L (0-33); Albumin Level 2.8 g/dL (3.5-5.2); Alkaline Phosphatase 175 IU/L (35-105); Anion Gap 11.9 (5-19); Aspartate Amino Transferase 204 U/L (0-32); Blood Urea Nitrogen 7 mg/dL (8-23); Calcium 9.2 mg/dL (8.5-10.5); Carbon Dioxide 24 mmol/L (22-29); Chloride 104 mmol/L (98-107); Globulin 5.6 g/dL (1.3-4.6); Glomerular Filtration Rate 84.2 mL/min (90-130); Glucose 144 mg/dL (65-115); Potassium 3.9 mmol/L (3.5-5.1); Sodium 136 mmol/L (136-145); Total Bilirubin 0.5 mg/dL (0.15-1.2); Total Protein 8.4 g/dL (6.6-8.7)
[2019-08-24 06:37] LABS: Slide Review Slide Review Perform
[2019-08-24 06:40] LABS: Glucose Point of Care 130 mg/dL (70-110)
[2019-08-24 07:12] LABS: Lipase 42 U/L (13-60)
[2019-08-24] MEDS: pantoprazole DR 40 mg Tablet PO ×2 (08:15→17:28)
[2019-08-24] MEDS: aspirin 81 mg EC Tablet PO (08:15)
[2019-08-24] MEDS: venlafaxine ER (24HR) 150 mg Capsule PO (08:15)
[2019-08-24] MEDS: metoprolol tartrate 25 mg Tablet PO (08:15)
[2019-08-24] MEDS: bumetanide 1 mg Tablet PO (08:15)
[2019-08-24] MEDS: loratadine 10 mg Tablet PO (08:15)
[2019-08-24] MEDS: fluticasone nasal spray 16gm Btl 2 SPRAY INTRANASAL (08:16)
[2019-08-24] MEDS: isosorbide mononitrate ER 30 mg Tablet PO (08:16)
--- NOTE | 2019-08-24 10:42 | ECG_ITS ---
Measurements Intervals [place] Rate: 50 P: -9 [place]: 178 QRS: 7 QRSD: 100 T: 34 QT: 489 QTc: 446 SINUS BRADYCARDIA Compared to ECG 08/22/2019 09:36:10 Sinus rhythm no longer present Prolonged QT interval no longer present Electronically Signed On 08-24-2019 20:23:28 DISPLAY SCREEN FABRICATOR by Anne Marie Musa M.D. [email or web address]
[2019-08-24 11:32] LABS: Glucose Point of Care 162 mg/dL (70-110)
--- NOTE | 2019-08-24 12:20 | MR_ITS ---
WS: [id number] MRCP, 08/24/2019 Clinical Data: Transaminitis, persistent nausea, right-sided abdominal pain, one month of vomiting. Comparison: CT abdomen and pelvis, 08/22/2019. Findings: The pancreas is normal with no evidence of any pancreatitis, pseudocyst, abscess, mass or ductal dila tion. The distal pancreatic duct empties normally into the descending duodenum with no evidence of any stri cture or intraluminal defect. The common bile duct is normal. The gallbladder is absent. The liver, spleen, kidneys, stomach, abdominal aorta and inferior vena cava are unremarkable. There i s a small left renal cortical cyst. MR/MR MRCP [id number] Impression: 1. Absent gallbladder. 2. Negative MRCP, no acute intra-abdominal abnormalities are seen.
[2019-08-24] MEDS: enoxaparin 40 mg/0.4 mL Syringe SUBCUT (13:31)
[2019-08-24] MEDS: oxyCODONE 5 mg IR Tab/Cap PO ×2 (15:38→20:08)
[2019-08-24 17:06] LABS: Glucose Point of Care 150 mg/dL (70-110)
[2019-08-24] MEDS: trazodone 100 mg Tablet PO (20:09)
--- NOTE | 2019-08-24 20:10 | PC.NURSE ---
Did not give patient metoprolol d/t BP 90/60
[2019-08-24 20:43] LABS: Glucose Point of Care 190 mg/dL (70-110)
--- NOTE | 2019-08-24 21:03 | PM.PN ---
Subjective Subjective: Interval history: improving pain, no acute distress, s/p negative MRCP today Medications: Reviewed: Yes Vitals/I&O/Wt Last Vital Signs Temp 97.7 F 08/24/19 19:52 Pulse 69 08/24/19 20:01 Resp 20 H 08/24/19 20:08 BP 96/60 08/24/19 19:52 Pulse Ox 95 08/24/19 20:01 08/24/19 08/24/19 08/24/19 06:59 14:59 22:59 Intake Total 240 / 1534.167 480 / 480 Balance 240 / 634.167 480 / 480 Physical Exam Narrative: EXAM NARRATIVE: GEN: Awake, alert and oriented, no acute distress CVS: S1S2 N RS: CTA B/L Abd: Soft, nt/nd , bs+ VIDEO SOFTWARE ENGINEER: no focal neuro deficits Data : 08/24/19 05:29 08/24/19 05:29 A&P Assessment and plan (1) Nausea: At this point etiology is not certain. As this is been going on for 1 month, there could be a concern for diabetic gastroparesis. However, with transaminitis with AST, ALT, alk phos elevation underwent MRCP which was unrevealing. Continue Protonix 40 mg twice daily Could consider EGD if MRCP negative Status: Acute Code(s): R11.0 - Nausea (2) Transaminitis: Status: Acute Code(s): R74.0 - Nonspecific elevation of levels of transaminase and lactic acid dehydrogenase [LDH] (3) Palpitations: Magnesium replaced. TSH normal. Repeat EKG as previous had prolonged QTC Status: Acute Code(s): R00.2 - Palpitations (4) Diabetic foot ulcer: Check x-ray. No evidence of acute infection on inspection Status: Acute Code(s): E11.621 - Type 2 diabetes mellitus with foot ulcer; L97.509 - Non-pressure chronic ulcer of other part of unspecified foot with unspecified severity (5) Hypomagnesemia: Replaced Status: Acute Code(s): E83.42 - Hypomagnesemia (6) Hyponatremia: Improved BNP was normal Status: Acute Code(s): E87.1 - Hypo-osmolality and hyponatremia Additional A&P Information Type 2 diabetes. Sliding scale insulin History of diastolic heart failure, appears compensated currently History of COPD. No evidence of exacerbation. Continue nebs History of hypertension History of hypothyroidism Hyperlipidemia, hold statin secondary to significant transaminitis Depression/anxiety History of coronary disease. Troponin negative. Lovenox for DVT prophylaxis Full code Attestations Medical Necessity Statement*: s/p mrcp today Coding Level of Care Code Acute Wheel Lacer And Truer for Chg Fwd Diagnoses Nausea R11.0 Transaminitis R74.0 Palpitations R00.2 Diabetic foot ulcer E11.621; L97.509 Hypomagnesemia E83.42 Hyponatremia E87.1
[2019-08-25] VITALS (11 sets, daily range): BP systolic 94–104; BP diastolic 57–62; PULSE 59–75; RESP 16–19; TEMP 36.4–36.6; O2SAT 92–98
[2019-08-25] MEDS: ipratropium-albuterol 3 mL Neb INHALATION ×4 (00:05→11:10)
[2019-08-25 05:50] LABS: Basophils % 0.5 %; Eosinophils # 0.2 10^3/uL (0.0-0.8); Eosinophils % 2.3 %; Hematocrit 34.7 % (37.0-47.0); Hemoglobin 10.4 g/dL (11.5-15.3); Lymphocytes # 2.6 10^3/uL (0.8-4.8); Lymphocytes % 39.9 %; Mean Corpuscular Volume 86.8 fL (81-99); Mean Platelet Volume 10.8 fL (7.4-10.4); Monocytes # 0.9 10^3/uL (0.2-0.9); Monocytes % 13.6 %; Neutrophils # 2.8 10^3/uL (1.8-7.7); Neutrophils % 43.4 %; Nucleated Red Blood Cells % 0 %; Platelet Count 251 10^3/cmm (130-400); Red Cell Distribution Width 14.6 % (12.1-15.1); White Blood Count 6.5 10^3/uL (4.0-10.0)
[2019-08-25 06:10] LABS: Alanine Aminotransferase 111 U/L (0-33); Alkaline Phosphatase 171 IU/L (35-105); Anion Gap 16.4 (5-19); Aspartate Amino Transferase 173 U/L (0-32); Blood Urea Nitrogen 9 mg/dL (8-23); Calcium 9.6 mg/dL (8.5-10.5); Carbon Dioxide 24 mmol/L (22-29); Chloride 95 mmol/L (98-107); Globulin 6.1 g/dL (1.3-4.6); Glomerular Filtration Rate 72.2 mL/min (90-130); Glucose 200 mg/dL (65-115); Potassium 3.4 mmol/L (3.5-5.1); Sodium 132 mmol/L (136-145); Total Bilirubin 0.4 mg/dL (0.15-1.2); Total Protein 9.1 g/dL (6.6-8.7)
[2019-08-25 06:40] LABS: Glucose Point of Care 157 mg/dL (70-110)
[2019-08-25] MEDS: aspirin 81 mg EC Tablet PO (08:26)
[2019-08-25] MEDS: isosorbide mononitrate ER 30 mg Tablet PO (08:26)
[2019-08-25] MEDS: loratadine 10 mg Tablet PO (08:26)
[2019-08-25] MEDS: venlafaxine ER (24HR) 150 mg Capsule PO (08:26)
[2019-08-25] MEDS: bumetanide 1 mg Tablet PO (08:26)
[2019-08-25] MEDS: fluticasone nasal spray 16gm Btl 2 SPRAY INTRANASAL (08:27)
[2019-08-25] MEDS: pantoprazole DR 40 mg Tablet PO (08:27)
--- NOTE | 2019-08-25 12:07 | PM.DCS ---
Discharge Providers Date of Admission: 08/23/19 18:55 Date of Discharge: August 25, 2019 Attending Provider at Admission: Wesley Mera MD Attending Provider at Discharge: Freda Boyer MD Primary Care Provider: Rad Branham DO Diagnoses at Discharge Discharge Diagnosis (1) Nausea: Status: Acute (2) Transaminitis: Status: Acute (3) Palpitations: Status: Acute (4) Diabetic foot ulcer: Status: Acute (5) Hypomagnesemia: Status: Acute (6) Hyponatremia: Status: Acute Reason for Visit Reason for Visit: Reason For Visit: diaphoresis / heart palpatations Hospital Course Discharge Summary: Luh Ray is a 63 year old female with a past medical history of CAD status post stenting x3, history of chronic systolic heart failure secondary to ischemic cardiomyopathy ejection fraction 40% back May 2017, COPD, BRYN, CRISSY/BSO with chronic estrogen replacement therapy, hypertension, hypothyroidism, anxiety, depression who presented to the ER multiple times since June of this year, but most recently 08/22/2019 with chief complaints of dizziness nausea and vomiting which has been ongoing for about a month. Upon evaluation her labs were suggestive of transaminitis with elevated AST ALT and mildly elevated alk phos. She underwent CT of the abdomen which was unremarkable and this was also followed with MRCP which was normal. Her symptoms improved significantly with supportive management with antiemetics and IV hydration. She had some hypomagnesemia and hypokalemia which was appropriately repleted. Because of her transaminitis is not certain at this time. Acute hepatitis serology was negative. Imaging as above was unremarkable. There are medications on her drug list that could be potentially contributing such as atorvastatin and trazodone, however she states that neither of these is a new medication. Possibility of [place] cannot be excluded. Since she is symptomatically clinically improved today and wishes to return home, we will plan to discharge her with close follow-up as an outpatient with her primary care provider Dr. Branham. We have sent additional autoimmune panel, serum ceruloplasmin levels and iron panel today which remains pending. These may be followed up as an outpatient. At the time of discharge her trazodone is being stopped as it can be related to chronic hepatitis. Atorvastatin will also be reduced to 20 mg p.o. daily. I am hesitant to stop this medication altogether because of the significant history of CAD and stenting in the past. This may need to be reassessed as an outpatient. I have also discussed with her if overall work-up remains unrevealing and continues to have transaminitis, she may eventually need a liver biopsy. Physical Exam Narrative: EXAM NARRATIVE: GEN: Awake, alert and oriented, no acute distress CVS: S1S2 N RS: CTA B/L Abd: Soft, nt/nd , bs+ MANAGER ADVERTISING: no focal neuro deficits Discharge Data Data Completed and Pending: Completed Studies During Hospitalization Category Date Time Status CT abdomen pelvis w con* [id number] Urge nt Cat Scan 08/22/19 05:05 Completed XR chest 1V nate ble [id number] Stat Exams 08/22/19 03:40 Completed XR foot RT 2V 736 20 Routine Exams 08/22/19 12:45 Completed MR MRCP [id number] Elisa goodrich MRI 08/24/19 12:20 Completed Pending at discharge Category Date Time Status NARGIS Profile Rheum atology Routine Lab 08/25/19 11:57 Ordered Arterial Blood Ga s W/O Coox Routine Lab 08/22/19 03:40 Ordered C Reactive Protei n Routine Lab 08/25/19 11:57 Ordered Ceruloplasmin Rou kp Lab 08/25/19 11:57 Ordered Creatine Phosphok inase Routine Lab 08/25/19 11:57 Ordered Erythrocyte Sedim entation Rate Rout ine Lab 08/25/19 11:57 Ordered Iron Routine Lab 08/25/19 11:57 Ordered Labs from last 24 hours 08/25/19 08/25/19 08/25/19 06:33 05:05 05:05 WBC 6.5 RBC 4.00 L Hgb 10.4 L Hct 34.7 L MCV 86.8 MCH 26.0 L MCHC 30.0 RDW 14.6 Plt Count 251 MPV 10.8 H Neut % (Auto) 43.4 Lymph % (Auto) 39.9 [place] % (Auto) 13.6 Eos % (Auto) 2.3 Baso % (Auto) 0.5 Neut # (Auto) 2.8 Lymph # (Auto) 2.6 [place] # (Auto) 0.9 Eos # (Auto) 0.2 Baso # (Auto) 0.0 Nucleated RBC % (a uto) 0 Nucleated RBCs # 0.0 Sodium 132 L Potassium 3.4 L Chloride 95 L Carbon Dioxide 24 Anion Gap 16.4 BUN 9 Creatinine 0.8 GFR Calculation 72.2 L Glucose 200 H POC Glucose 157 Calcium 9.6 Total Bilirubin 0.4 AST 173 H ALT 111 H Alkaline Phosphata se 171 H Total Protein 9.1 H Albumin 3.0 L Globulin 6.1 H 08/24/19 08/24/19 20:30 16:55 WBC RBC Hgb Hct MCV MCH MCHC RDW Plt Count MPV Neut % (Auto) Lymph % (Auto) [place] % (Auto) Eos % (Auto) Baso % (Auto) Neut # (Auto) Lymph # (Auto) [place] # (Auto) Eos # (Auto) Baso # (Auto) Nucleated RBC % (a uto) Nucleated RBCs # Sodium Potassium Chloride Carbon Dioxide Anion Gap BUN Creatinine GFR Calculation Glucose POC Glucose 190 150 Calcium Total Bilirubin AST ALT Alkaline Phosphata se Total Protein Albumin Globulin Vitals: Last Vital Signs Temp 97.8 F 08/25/19 11:44 Pulse 75 08/25/19 11:44 Resp 16 08/25/19 11:44 BP 96/61 08/25/19 11:44 Pulse Ox 98 08/25/19 11:44 Discharge Plan Discharge Patient Disposition: Home, Self-Care Condition: Stable Prescriptions: Continued spironolactone 25 mg tablet 12.5 mg PO DAILY 30 Days Qty: 30 RF: 6 isosorbide mononitrate 30 mg Tablet Extended Release 24 Hr 30 mg PO DAILY RF: 0 potassium chloride 10 mEq Tablet Extended Release 10 meq PO DAILY RF: 0 pantoprazole [Protonix] 40 mg Tablet,Delayed Release (Dr/Ec) 40 mg PO DAILY RF: 0 bumetanide 1 mg Tablet 1 mg PO DAILY RF: 0 fluticasone propion-salmeterol [Advair Diskus] 100-50 mcg/dose Blister With Device 1 puff INHALATION BID RF: 0 fluticasone propionate [Flonase Allergy Relief] 50 mcg/actuation [place],Suspension 2 spray INTRANASAL DAILY RF: 0 metformin 500 mg Tablet Extended Release 24 Hr 1,000 mg PO BID RF: 0 Premarin 1.25 mg Tablet 1.25 mg PO DAILY RF: 0 metoprolol tartrate 25 mg Tablet 25 mg PO BID RF: 0 aspirin [Aspir-81] 81 mg Tablet,Delayed Release (Dr/Ec) 81 mg PO DAILY RF: 0 loratadine 10 mg Tablet 10 mg PO DAILY RF: 0 Novolog Flexpen U-100 Insulin 100 unit/mL (3 mL) Insulin Pen See Rx Instructions .ROUTE .COMPLEX RF: 0 Levemir FlexTouch U-100 Insuln 100 unit/mL (3 mL) Insulin Pen 10 unit SUBCUT BID RF: 0 Effexor XR 150 mg capsule,extended release 24hr 150 mg PO DAILY RF: 0 Changed atorvastatin 40 mg Tablet 20 mg PO DAILY Qty: 0 RF: 0 Discontinued trazodone 100 mg Tablet 100 mg PO BEDTIME RF: 0 Discharge Orders: Discharge Order (Routine); Ordered 08/25/19 Ordered By: Freda Boyer Referrals: Rad Branham DO [Primary Care Provider] - 4-7 days (f/up on transaminitis, discharged with deranged LFTs, autoimmune w/up pending, atorvastatin reduced, trazodone stopped) Chadwick Hawkins DPM [Physician] - 2 weeks Discharge Diet: Usual diet, Cardiac, Diabetic and Low Cholesterol Discharge Activity: Resume usual activity Activity Restrictions/Additional Instructions: atorvastatin has been reduced to 20mg daily. Trazodone stopped as can affect liver function Discharge Attestations Time Spent in Discharge Care*: greater than 30 min Quality Metrics Clinical Quality Measures During this hospital stay, did patient experience: None Coding Level of Care Code Acute Content Developer for Chg Fwd Diagnoses Nausea R11.0 Transaminitis R74.0 Palpitations R00.2 Diabetic foot ulcer E11.621; L97.509 Hypomagnesemia E83.42 Hyponatremia E87.1
[2019-08-25 12:09] LABS: Glucose Point of Care 251 mg/dL (70-110)
[2019-08-25] MEDS: enoxaparin 40 mg/0.4 mL Syringe SUBCUT (12:28)
[2019-08-25 12:42] LABS: C Reactive Protein 32.1 mg/L (0.0-4.9); Creatine Phosphokinase 36 U/L (26-192); Iron 38 ug/dL (37-145)
[2019-08-25 14:08] LABS: Erythrocyte Sedimentation Rate 105 mm/hr (0-15)
[2019-08-26 12:12] LABS: Ceruloplasmin 46 mg/dL (18-53)
[2019-08-26 12:35] LABS: CENTROMERE B ANTIBODY <1.0 NEG AI (<1.0 NEG); JO-1 ANTIBODY <1.0 NEG AI (<1.0 NEG); RNP ANTIBODY <1.0 NEG AI (<1.0 NEG); SCL-70 ANTIBODY <1.0 NEG AI (<1.0 NEG); SJOGREN'S ANTIBODY (SS-A) <1.0 NEG AI (<1.0 NEG); SM ANTIBODY <1.0 NEG AI (<1.0 NEG)
[2019-08-26 16:10] LABS: THYROID PEROXIDASE ANTIBODIES 243 IU/mL (<9)
[2019-08-27 09:23] LABS: ANA PATTERN Nuclear, Homogeneous; ANA SCREEN, IFA POSITIVE (NEGATIVE)
[2019-08-28 12:02] LABS: COMPLEMENT, TOTAL (CH50) 25 U/mL (31-60)
[2019-08-28 14:41] LABS: COMPLEMENT COMPONENT C3C 203 mg/dL (83-193); COMPLEMENT COMPONENT C4C 8 mg/dL (15-57)
[2019-09-01 00:36] LABS: DNA AB (DS) CRITHIDIA TITER 1:40 titer (<1:10); DNA AB (DS) CRITHIDIA,IFA POSITIVE (NEGATIVE)
== END 2019-08-25 14:26 | disposition home or self-care (01) | DRG 641 ==
LOC: ER 09:13 → MEDSURG 08-23 15:58
PROVIDERS: Emergency Medicine; Family Medicine; Admitting Provider Internal Medicine; Emergency Provider Family Medicine; Family Provider Internal Medicine; PCP Internal Medicine; Visit Provider Student in an Organized Health Care Education/Training Program
DX: E87.1 Hypo-osmolality and hyponatremia (principal); I50.22 Chronic systolic (congestive) heart failure; E83.42 Hypomagnesemia; J44.9 Chronic obstructive pulmonary disease, unspecified; E78.5 Hyperlipidemia, unspecified; E03.9 Hypothyroidism, unspecified; I11.0 Hypertensive heart disease with heart failure; I25.10 Atherosclerotic heart disease of native coronary artery without angina pectoris; L97.509 Non-pressure chronic ulcer of other part of unspecified foot with unspecified severity; E11.621 Type 2 diabetes mellitus with foot ulcer; R74.0 Nonspecific elevation of levels of transaminase and lactic acid dehydrogenase [LDH]; Z79.4 Long term (current) use of insulin; Z79.899 Other long term (current) drug therapy; Z88.0 Allergy status to penicillin; Z88.8 Allergy status to other drugs, medicaments and biological substances; G47.33 Obstructive sleep apnea (adult) (pediatric); Z79.890 Hormone replacement therapy; E87.6 Hypokalemia; F41.8 Other specified anxiety disorders; Z79.82 Long term (current) use of aspirin; Z79.51 Long term (current) use of inhaled steroids
CPT/HCPCS: 12345; 36415; 36416; 36600; 71045; 73620; 74177; 74181; 80053; 80074; 81001; 82009; 82390; 82550; 82803; 82962; 83540; 83605; 83690; 83735; 83880; 84443; 84484; 85025; 85651; 86140; 87804; 93005; 94640; 96372; 96375; 99283; A9270; G0378; J1650; J1815; J2405; J3475; J7030; Q9967

== ENCOUNTER 2019-10-14 04:34 | Emergency (ER) | payer MEDICARE, MEDICAID, SELFPAY ==
--- NOTE | 2019-10-14 04:40 | XR_ITS ---
WS: [id number] CHEST XRAY TECHNIQUE: Portable chest. CLINICAL INFORMATION: cough COMPARISON: August 22, 2019 FINDINGS: Heart: Normal cardiac silhouette. Lungs: Lungs are clear. No consolidation or pleural effusion. Bones: Normal visualized bony structures. XR/XR chest 1V portable [id number] IMPRESSION: Normal chest
--- NOTE | 2019-10-14 04:44 | W.ED.GENADLT ---
Documented by User: Liza Zuniga 10/14/19 05:42 HPI - General Adult General: Chief complaint: Shortness of Breath/Dyspnea Stated complaint: FEVER/SOB Time Seen by Provider: 10/14/19 04:36 History of Present Illness: HPI narrative: Luh stephens is a 64-year-old female who comes in complaining of fever, cough and shortness of breath. The symptoms have been present for the past 3 days. Her fever has been as high as 102. The cough is been productive of a small amount of sputum. She is not had a fever she states in the past 24 hours. She has had some vomiting with this which she describes as posttussive emesis. She denies abdominal pain, flank pain, chest pain or syncope/near syncope. She is unaware of anything that makes her symptoms better or worse but due to the persistence of her symptoms she decided to come to the ER for evaluation. Associated symptoms: Reports dyspnea and nausea; Deny chest pain, confusion, diaphoresis, headache(s), malaise, rash, palpitations, syncope or vomiting Review of Systems General: Reports: other (negative unless marked) Const: Reports: fever; Denies: chills, body aches, fatigue, malaise or diaphoresis Eyes: Denies: change in vision or blurry vision ENMT: Denies: throat pain, painful swallowing, hoarseness, ear pain, ear discharge, Change in hearing or nasal discharge Card: Denies: chest pain, palpitations, irregular heart rhythm, syncope, pre-syncope, shortness of breath on exertion or shortness of breath when lying down Resp: Reports: shortness of breath and productive cough; Denies: non-productive cough, wheezing, coughing up blood or chest congestion GI: Reports: nausea; Denies: abdominal pain, vomiting, vomiting blood, coffee grounds in vomit, diarrhea, constipation, cramping, blood in stool or black tarry stool : Denies: flank pain, painful urination, urinary frequency, urinary urgency, decreased urine ouput, urinary incontinence or blood in urine Musc: Denies: neck pain, back pain, extremity pain, extremity swelling, joint pain, joint swelling, joint warmth or joint stiffness Skin/Breast: Denies: rash, skin tenderness or yellow skin Neuro: Denies: headache, numbness in extremities, weakness in extremities, changes in sensation, lack of coordination, difficulty walking, dizziness, vertigo or confusion Endo: Denies: excessive thirst, tired all the time, cold intolerance, excessive sweating, flushing or hot flashes Aj/Lymph: Denies: easy bruising, easy bleeding, petechiae or enlarged lymph nodes All/Imm: Denies: hives, throat swelling, tongue swelling, facial swelling or acute wheezing PFSH ED PFSH: Medical History COPD (chronic obstructive pulmonary disease) Coronary artery disease Depression with anxiety Diastolic heart failure Hyperlipidemia Hypertension Hypothyroidism Type 2 diabetes mellitus Surgical History History of appendectomy History of cholecystectomy History of hysterectomy History of uvulopalatopharyngoplasty S/P percutaneous transluminal angioplasty (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) with stent placement Family History Other CAD (coronary artery disease) Social History Smoking and tobacco status: current every day smoker Alcohol intake: never History of recent travel: No Physical Exam Const: COMMON NORMALS: no apparent distress, oriented x3, no limitations, healthy appearing and well nourished EXAM LIMITATIONS: no altered mental status GENERAL APPEARANCE: cooperative, well kempt and well developed ORIENTATION/CONSCIOUSNESS: Yes awake HENMT: COMMON NORMALS: normocephalic, head/scalp atraumatic, hearing grossly normal bilaterally, external ears normal, EAC's normal, external nose normal and moist oral mucous membranes HEAD & SCALP: normal to inspection, normocephalic and atraumatic FACE & SINUS: normal facial exam and face symmetric NOSE: external nose normal and nares normal EXTERNAL EAR: Yes external ears normal EXTERNAL AUDITORY CANAL: EAC's normal MOUTH: oral and palatal mucosa normal and tongue normal Eye: COMMON NORMALS: PERRL, EOMs intact bilaterally, conjunctivae normal and no scleral icterus GENERAL EYE: normal appearance of both eyes and normal light reflex CONJUNCTIVA: Yes conjunctivae normal SCLERA: sclerae normal CORNEA: Yes corneas normal PUPIL: Yes PERRL DIRECT OPHTHALMOSCOPY: Yes normal light reflex Neck/C-Spine: COMMON NORMALS: full ROM, no lymphadenopathy, supple, no meningeal signs and no JVD GENERAL: Yes normal visual inspection and Yes trachea midline CERVICAL SPINE: Yes cervical ROM normal Chest: COMMONS NORMALS: inspection of chest normal and palpation of chest normal Resp: COMMON NORMALS: normal respiratory effort, no retractions, no use of accessory muscles and clear to auscultation bilaterally EFFORT & INSPECTION: Yes able to speak in complete sentences AUSCULTATION: clear to auscultation bilaterally Cardio: COMMON NORMALS: no JVD, regular rate, regular rhythm, S1 normal heart sound, S2 normal heart sound, no gallops, no clicks, no murmurs and no rub JUGULAR VENOUS DISTENTION: no JVD RATE: regular rate RHYTHM: regular rhythm HEART SOUNDS: S1 normal and S2 normal GI: COMMON NORMALS: soft to palpation, non-tender, no hepatosplenomegaly and no masses INSPECTION: Yes normal to inspection PALPATION: Yes soft and Yes no hepatosplenomegaly : COMMON NORMALS: Yes no CVA tenderness BLADDER/KIDNEY EXAM: Yes no CVA tenderness Back/Pelvis: COMMON NORMALS: no CVA tenderness, thoracic and lumbar spine normal to inspection, no thoracic nor lumbar tenderness and thoraco-lumbar ROM normal Extremity: COMMON NORMALS: normal to inspection, full ROM, normal capillary refill, no joint enlargement, no clubbing, cyanosis or edema and no calf tenderness Neuro: COMMON NORMALS: oriented x3, CN's II-XII intact bilaterally, moves all extremities, no focal motor deficits and no sensory deficits noted MENINGEAL SIGNS: Yes no meningeal signs Psych: COMMON NORMALS: mental status grossly normal, thought process normal, cooperative, affect normal, speech normal and activity/motor behavior normal APPEARANCE: Yes well kempt SPEECH: Yes normal speech THOUGHT PROCESS: normal thought process Skin: COMMON NORMALS: no rashes or lesions noted, skin turgor normal, no jaundice, no petechiae and no mottling GENERAL SKIN EXAM: no rashes or lesions noted and turgor normal Course Vital Signs: Vital signs: Vital Signs Temperature 98.3 F 10/14/19 05:16 Pulse Rate 63 10/14/19 07:38 Respiratory Rate 16 10/14/19 07:38 Blood Pressure 106/67 10/14/19 07:38 Pulse Oximetry 99 10/14/19 07:38 [facility] - General Adult Lab Data: Labs: Lab Results 10/14/19 10/14/19 10/14/19 Range/Units 05:05 05:05 05:05 WBC 6.6 (4.0-10.0) 10^3/ uL RBC 3.73 L (4.1-5.3) 10^6/u L Hgb 9.8 L (11.5-15.3) g/dL Hct 32.1 L (37.0-47.0) % MCV 86.1 (81-99) fL MCH 26.3 L (28.0-34.0) pg MCHC 30.5 (30.0-36.0) g/dL RDW 13.4 (12.1-15.1) % Plt Count 160 (130-400) 10^3/c mm MPV 11.0 H (7.4-10.4) fL Neut % (Auto) 67.5 % Lymph % (Auto) 17.1 % Florence % (Auto) 11.1 % Eos % (Auto) 3.5 % Baso % (Auto) 0.5 % Neut # (Auto) 4.5 (1.8-7.7) 10^3/u L Lymph # (Auto) 1.1 (0.8-4.8) 10^3/u L Florence # (Auto) 0.7 (0.2-0.9) 10^3/u L Eos # (Auto) 0.2 (0.0-0.8) 10^3/u L Baso # (Auto) 0.0 (0.0-0.1) 10^3/u L Nucleated RBC % (a uto) 0 % Nucleated RBCs # 0.0 /100WBC PT 14.30 H (10.5-13.3) SECO NDS INR 1.08 (0.8-1.2) Specimen Type Sample Site ABG pH (7.35-7.45) ABG pCO2 (35-45) mmHg ABG pO2 (80.0-100.0) mmH g ABG HCO3 (22-26) mmol/L ABG Base Excess (-2.0-2.0) mmol/ L Damian Test Hematocrit (37-47) % O2 Delivery Device Air Export Logistics Manager ID Sodium 130 L (136-145) mmol/L Potassium 4.0 (3.5-5.1) mmol/L Chloride 98 (98-107) mmol/L Carbon Dioxide 22 (22-29) mmol/L Anion Gap 14.0 (5-19) BUN 11 (8-23) mg/dL Creatinine 0.6 (0.5-0.9) mg/dL GFR Calculation 100.3 (90-130) mL/min Glucose 281 H (65-115) mg/dL Calculated Osmolal ity 276 L (285-295) mOsm/k g Lactic Acid (0.5-2.2) mmol/L Calcium 9.0 (8.5-10.5) mg/dL Magnesium 1.5 L (1.7-2.3) mg/dL Total Bilirubin 1.0 (0.15-1.2) mg/dL AST 151 H (0-32) U/L ALT 79 H (0-33) U/L Alkaline Phosphata se 76 (35-105) IU/L Troponin T Baselin e (0-10) ng/mL Troponin T 120 Min [place] (0-10) ng/mL Delta Troponin T (0-10) ABS# Total Protein 7.7 (6.6-8.7) g/dL Albumin 3.2 L (3.5-5.2) g/dL Globulin 4.5 (1.3-4.6) g/dL Lipase 62 H (13-60) U/L Urine Color (Yellow) Urine Appearance (CLEAR) Urine pH (5-7) Ur Specific Gravit y (1.005-1.030) Urine Protein (Negative) Urine Glucose (UA) (Normal) Urine Ketones (Negative) Urine Blood (Negative) Urine Nitrate (Negative) Urine Bilirubin (NEGATIVE) Urine Urobilinogen (Negative) mg/dL Ur Leukocyte Liset ase (Negative) Urine RBC (0-2) /hpf Urine WBC (0-5) /hpf Ur Squamous Epith Cells (0-5) Urine Bacteria (NONE) Serum Ketones (Negative) Influenza Type A A g (Negative) Influenza Type B A g (Negative) 10/14/19 10/14/19 10/14/19 Range/Units 05:05 05:05 05:05 WBC (4.0-10.0) 10^3/ uL RBC (4.1-5.3) 10^6/u L Hgb (11.5-15.3) g/dL Hct (37.0-47.0) % MCV (81-99) fL MCH (28.0-34.0) pg MCHC (30.0-36.0) g/dL RDW (12.1-15.1) % Plt Count (130-400) 10^3/c mm MPV (7.4-10.4) fL Neut % (Auto) % Lymph % (Auto) % Florence % (Auto) % Eos % (Auto) % Baso % (Auto) % Neut # (Auto) (1.8-7.7) 10^3/u L Lymph # (Auto) (0.8-4.8) 10^3/u L Florence # (Auto) (0.2-0.9) 10^3/u L Eos # (Auto) (0.0-0.8) 10^3/u L Baso # (Auto) (0.0-0.1) 10^3/u L Nucleated RBC % (a uto) % Nucleated RBCs # /100WBC PT (10.5-13.3) SECO NDS INR (0.8-1.2) Specimen Type Sample Site ABG pH (7.35-7.45) ABG pCO2 (35-45) mmHg ABG pO2 (80.0-100.0) mmH g ABG HCO3 (22-26) mmol/L ABG Base Excess (-2.0-2.0) mmol/ L Damian Test Hematocrit (37-47) % O2 Delivery Device Air [employer] Logistics Manager ID Sodium (136-145) mmol/L Potassium (3.5-5.1) mmol/L Chloride (98-107) mmol/L Carbon Dioxide (22-29) mmol/L Anion Gap (5-19) BUN (8-23) mg/dL Creatinine (0.5-0.9) mg/dL GFR Calculation (90-130) mL/min Glucose (65-115) mg/dL Calculated Osmolal ity (285-295) mOsm/k g Lactic Acid 2.0 (0.5-2.2) mmol/L Calcium (8.5-10.5) mg/dL Magnesium (1.7-2.3) mg/dL Total Bilirubin (0.15-1.2) mg/dL AST (0-32) U/L ALT (0-33) U/L Alkaline Phosphata se (35-105) IU/L Troponin T Baselin e 6 (0-10) ng/mL Troponin T 120 Min [place] (0-10) ng/mL Delta Troponin T (0-10) ABS# Total Protein (6.6-8.7) g/dL Albumin (3.5-5.2) g/dL Globulin (1.3-4.6) g/dL Lipase (13-60) U/L Urine Color (Yellow) Urine Appearance (CLEAR) Urine pH (5-7) Ur Specific Gravit y (1.005-1.030) Urine Protein (Negative) Urine Glucose (UA) (Normal) Urine Ketones (Negative) Urine Blood (Negative) Urine Nitrate (Negative) Urine Bilirubin (NEGATIVE) Urine Urobilinogen (Negative) mg/dL Ur Leukocyte Liset ase (Negative) Urine RBC (0-2) /hpf Urine WBC (0-5) /hpf Ur Squamous Epith Cells (0-5) Urine Bacteria (NONE) Serum Ketones Negative (Negative) Influenza Type A A g (Negative) Influenza Type B A g (Negative) 10/14/19 10/14/19 10/14/19 Range/Units 05:13 06:00 06:10 WBC (4.0-10.0) 10^3/ uL RBC (4.1-5.3) 10^6/u L Hgb (11.5-15.3) g/dL Hct (37.0-47.0) % MCV (81-99) fL MCH (28.0-34.0) pg MCHC (30.0-36.0) g/dL RDW (12.1-15.1) % Plt Count (130-400) 10^3/c mm MPV (7.4-10.4) fL Neut % (Auto) % Lymph % (Auto) % Florence % (Auto) % Eos % (Auto) % Baso % (Auto) % Neut # (Auto) (1.8-7.7) 10^3/u L Lymph # (Auto) (0.8-4.8) 10^3/u L [place] # (Auto) (0.2-0.9) 10^3/u L Eos # (Auto) (0.0-0.8) 10^3/u L Baso # (Auto) (0.0-0.1) 10^3/u L Nucleated RBC % (a uto) % Nucleated RBCs # /100WBC PT (10.5-13.3) SECO NDS INR (0.8-1.2) Specimen Type Arterial Sample Site Radial, left ABG pH 7.40 (7.35-7.45) ABG pCO2 36.0 (35-45) mmHg ABG pO2 85.8 (80.0-100.0) mmH g ABG HCO3 22.3 (22-26) mmol/L ABG Base Excess -2.1 L (-2.0-2.0) mmol/ L Damian Test N/a Hematocrit 30.8 L (37-47) % O2 Delivery Device Room air [employer] Export Logistics Manager ID [email or web address] Sodium (136-145) mmol/L Potassium (3.5-5.1) mmol/L Chloride (98-107) mmol/L Carbon Dioxide (22-29) mmol/L Anion Gap (5-19) BUN (8-23) mg/dL Creatinine (0.5-0.9) mg/dL GFR Calculation (90-130) mL/min Glucose (65-115) mg/dL Calculated Osmolal ity (285-295) mOsm/k g Lactic Acid (0.5-2.2) mmol/L Calcium (8.5-10.5) mg/dL Magnesium (1.7-2.3) mg/dL Total Bilirubin (0.15-1.2) mg/dL AST (0-32) U/L ALT (0-33) U/L Alkaline Phosphata se (35-105) IU/L Troponin T Baselin e (0-10) ng/mL Troponin T 120 Min [place] (0-10) ng/mL Delta Troponin T (0-10) ABS# Total Protein (6.6-8.7) g/dL Albumin (3.5-5.2) g/dL Globulin (1.3-4.6) g/dL Lipase (13-60) U/L Urine Color Straw (Yellow) Urine Appearance Clear (CLEAR) Urine pH 6.5 (5-7) Ur Specific Gravit y 1.010 (1.005-1.030) Urine Protein Neg (Negative) Urine Glucose (UA) 4+ H (Normal) Urine Ketones Negative (Negative) Urine Blood Neg (Negative) Urine Nitrate Negative (Negative) Urine Bilirubin Neg (NEGATIVE) Urine Urobilinogen Norm (Negative) mg/dL Ur Leukocyte Liset ase Negative (Negative) Urine RBC None (0-2) /hpf Urine WBC None (0-5) /hpf Ur Squamous Epith Cells 0-4 H (0-5) Urine Bacteria None (NONE) Serum Ketones (Negative) Influenza Type A A g Negative (Negative) Influenza Type B A g Negative (Negative) 10/14/19 Range/Units 06:55 WBC (4.0-10.0) 10^3/ uL RBC (4.1-5.3) 10^6/u L Hgb (11.5-15.3) g/dL Hct (37.0-47.0) % MCV (81-99) fL MCH (28.0-34.0) pg MCHC (30.0-36.0) g/dL RDW (12.1-15.1) % Plt Count (130-400) 10^3/c mm MPV (7.4-10.4) fL Neut % (Auto) % Lymph % (Auto) % Florence % (Auto) % Eos % (Auto) % Baso % (Auto) % Neut # (Auto) (1.8-7.7) 10^3/u L Lymph # (Auto) (0.8-4.8) 10^3/u L [place] # (Auto) (0.2-0.9) 10^3/u L Eos # (Auto) (0.0-0.8) 10^3/u L Baso # (Auto) (0.0-0.1) 10^3/u L Nucleated RBC % (a uto) % Nucleated RBCs # /100WBC PT (10.5-13.3) SECO NDS INR (0.8-1.2) Specimen Type Sample Site ABG pH (7.35-7.45) ABG pCO2 (35-45) mmHg ABG pO2 (80.0-100.0) mmH g ABG HCO3 (22-26) mmol/L ABG Base Excess (-2.0-2.0) mmol/ L Damian Test Hematocrit (37-47) % O2 Delivery Device Air [employer] Logistics Manager ID Sodium (136-145) mmol/L Potassium (3.5-5.1) mmol/L Chloride (98-107) mmol/L Carbon Dioxide (22-29) mmol/L Anion Gap (5-19) BUN (8-23) mg/dL Creatinine (0.5-0.9) mg/dL GFR Calculation (90-130) mL/min Glucose (65-115) mg/dL Calculated Osmolal ity (285-295) mOsm/k g Lactic Acid (0.5-2.2) mmol/L Calcium (8.5-10.5) mg/dL Magnesium (1.7-2.3) mg/dL Total Bilirubin (0.15-1.2) mg/dL AST (0-32) U/L ALT (0-33) U/L Alkaline Phosphata se (35-105) IU/L Troponin T Baselin e (0-10) ng/mL Troponin T 120 Min [place] 6.14 (0-10) ng/mL Delta Troponin T 0.14 (0-10) ABS# Total Protein (6.6-8.7) g/dL Albumin (3.5-5.2) g/dL Globulin (1.3-4.6) g/dL Lipase (13-60) U/L Urine Color (Yellow) Urine Appearance (CLEAR) Urine pH (5-7) Ur Specific Gravit y (1.005-1.030) Urine Protein (Negative) Urine Glucose (UA) (Normal) Urine Ketones (Negative) Urine Blood (Negative) Urine Nitrate (Negative) Urine Bilirubin (NEGATIVE) Urine Urobilinogen (Negative) mg/dL Ur Leukocyte Liset ase (Negative) Urine RBC (0-2) /hpf Urine WBC (0-5) /hpf Ur Squamous Epith Cells (0-5) Urine Bacteria (NONE) Serum Ketones (Negative) Influenza Type A A g (Negative) Influenza Type B A g (Negative) Discharge Plan Discharge Patient Disposition: Home, Self-Care Clinical Impression: COPD exacerbation, Anemia Condition: Stable Prescriptions: New doxycycline hyclate 100 mg capsule 100 mg PO BID 10 Days Qty: 20 RF: 0 Medrol (Denis) 4 mg tablets,dose pack See Rx Instructions .ROUTE .COMPLEX Qty: 21 RF: 0 Advair Diskus 250-50 mcg/dose blister with device 1 inh INHALATION BID Qty: 60 RF: 0 albuterol sulfate 90 mcg/actuation HFA aerosol inhaler 2 inh INHALATION Q4H PRN (Reason: shortness of breath or wheezing) Qty: 18 RF: 0 Discontinued fluticasone propion-salmeterol [Advair Diskus] 100-50 mcg/dose Blister With Device 1 puff INHALATION BID RF: 0 No Action spironolactone 25 mg tablet 12.5 mg PO DAILY 30 Days Qty: 30 RF: 6 isosorbide mononitrate 30 mg tablet extended release 24 hr 30 mg PO DAILY 90 Days Qty: 90 RF: 3 potassium chloride 10 mEq Tablet Extended Release 10 meq PO DAILY RF: 0 pantoprazole [Protonix] 40 mg Tablet,Delayed Release (Dr/Ec) 40 mg PO DAILY RF: 0 bumetanide 1 mg Tablet 1 mg PO DAILY RF: 0 fluticasone propionate [Flonase Allergy Relief] 50 mcg/actuation [place],Suspension 2 spray INTRANASAL DAILY RF: 0 metformin 500 mg Tablet Extended Release 24 Hr 1,000 mg PO BID RF: 0 Premarin 1.25 mg Tablet 1.25 mg PO DAILY RF: 0 metoprolol tartrate 25 mg Tablet 25 mg PO BID RF: 0 aspirin [Aspir-81] 81 mg Tablet,Delayed Release (Dr/Ec) 81 mg PO DAILY RF: 0 loratadine 10 mg Tablet 10 mg PO DAILY RF: 0 Novolog Flexpen U-100 Insulin 100 unit/mL (3 mL) Insulin Pen See Rx Instructions .ROUTE .COMPLEX RF: 0 Levemir FlexTouch U-100 Insuln 100 unit/mL (3 mL) Insulin Pen 10 unit SUBCUT BID RF: 0 Effexor XR 150 mg capsule,extended release 24hr 150 mg PO DAILY RF: 0 atorvastatin 40 mg Tablet 20 mg PO DAILY Qty: 0 RF: 0 Discharge Orders: Discharge Order (Routine); Ordered 10/14/19 Ordered By: Too Ramirez Referrals: Yumiko Chavis MD [Physician] - Rad Branham DO [Primary Care Provider] - (Recheck your CBC within 1 week) Discharge Diet: Usual diet Discharge Activity: Increase activity as tolerated Activity Restrictions/Additional Instructions: Case management will call to get you set up for a pulmonary function test Sign Out Sign Out Data: Patient Sign Out occurred on 10/14/19 at 06:37. Patient's care was discussed, and care was transferred from Liza Zuniga to Too Ramirez DO. Sign Out Comment: Case turned over to Dr. Ramirez at change of shift. Last updated by Liza Zuniga at 10/14/19 05:50 Coding Level of Care Code ED Orchid Transplanter for Chg Fwd Exam Comprehensive Documented by User: Too Ramirez DO 10/14/19 08:01 HPI - General Adult General: Chief complaint: Shortness of Breath/Dyspnea Stated complaint: FEVER/SOB Time Seen by Provider: 10/14/19 04:36 History of Present Illness: HPI narrative: 64-year-old female presents to the emergency room initially was seen by Dr. Ramirez acquired her care at change of shift. Patient reports she has had a nonproductive cough worse at night intermittently for the last couple of weeks. She subjectively has run some fever she did report on a couple of occasions she checked her temp. On exam today she is by Dr. Marie she is not been wheezing her chest x-ray looks relatively normal she is was hospitalized a month ago and states this is been ongoing since then. Onset (ago): week(s) Severity: mild Relieving factors: rest Exacerbating factors: other (Exertion increases cough and nighttime cough worsens) Associated symptoms: Reports dyspnea, fevers/chills, nausea and short of breath; Deny chest pain, diaphoresis or rash Treatments prior to arrival: other (Albuterol improves) Review of Systems Const: Denies: diaphoresis ENMT: Denies: throat pain, ear pain, nasal discharge or nasal congestion Card: Denies: chest pain Resp: Reports: shortness of breath GI: Reports: nausea : Denies: flank pain, difficulty urinating, painful urination, urinary frequency or urinary urgency Skin/Breast: Denies: rash or itching PFSH ED PFSH: Medical History COPD (chronic obstructive pulmonary disease) Coronary artery disease Depression with anxiety Diastolic heart failure Hyperlipidemia Hypertension Hypothyroidism Type 2 diabetes mellitus Surgical History History of appendectomy History of cholecystectomy History of hysterectomy History of uvulopalatopharyngoplasty S/P percutaneous transluminal angioplasty (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[employer]) with stent placement Family History Other CAD (coronary artery disease) Social History Smoking and tobacco status: current every day smoker Alcohol intake: never History of recent travel: No Physical Exam Const: COMMON NORMALS: no apparent distress GENERAL APPEARANCE: cooperative and comfortable ORIENTATION/CONSCIOUSNESS: Yes awake, Yes oriented to person, Yes oriented to place and Yes oriented to time Neck/C-Spine: COMMON NORMALS: no JVD Lymph: LYMPHATIC: no lymphadenopathy noted and no lymphedema noted Resp: COMMON NORMALS: normal respiratory effort, no retractions, no use of accessory muscles and clear to auscultation bilaterally AUSCULTATION: clear to auscultation bilaterally Cardio: COMMON NORMALS: no JVD, regular rate, regular rhythm and no murmurs RATE: regular rate RHYTHM: regular rhythm Extremity: COMMON NORMALS: normal to inspection, normal capillary refill, no clubbing, cyanosis or edema, no calf tenderness and no pedal edema Neuro: SENSORIUM/ORIENTATION: Yes oriented to person, Yes oriented to place and Yes oriented to time Skin: COMMON NORMALS: no rashes or lesions noted GENERAL SKIN EXAM: no rashes or lesions noted Course Vital Signs: Vital signs: Vital Signs Temperature 98.3 F 10/14/19 05:16 Pulse Rate 63 10/14/19 07:38 Respiratory Rate 16 10/14/19 07:38 Blood Pressure 106/67 10/14/19 07:38 Pulse Oximetry 99 10/14/19 07:38 MDM - General Adult MDM Narrative: Medical decision making narrative: Her exam is essentially normal she does not have any coarse breathing sounds she does not have any wheezing her chest x-ray was normal troponins and EKG are unremarkable. Appears to be more exacerbation of COPD and probably in some respects under treatment she is on Advair 100/50. After talking to her and reviewing her symptoms I do not believe her symptoms are related to the COVID-19 virus and clinically she does not appear to need treatment. Did notice a slight decrease in her hemoglobin however she is not complaining of any hematochezia melena hematemesis or coffee-ground emesis this should be monitored in the outpatient setting. We will go ahead and discharge her home increase her Advair 250/50 discharge her with an albuterol inhaler prednisone taper and doxycycline for 10 days. Try to get her set up as an outpatient basis for pulmonary function tests and a follow-up with Dr. Chavis on her breathing. She should follow-up with her primary care doctor for her anemia within the next 1 week. Lab Data: Labs: Lab Results 10/14/19 10/14/19 10/14/19 Range/Units 05:05 05:05 05:05 WBC 6.6 (4.0-10.0) 10^3/ uL RBC 3.73 L (4.1-5.3) 10^6/u L Hgb 9.8 L (11.5-15.3) g/dL Hct 32.1 L (37.0-47.0) % MCV 86.1 (81-99) fL MCH 26.3 L (28.0-34.0) pg MCHC 30.5 (30.0-36.0) g/dL RDW 13.4 (12.1-15.1) % Plt Count 160 (130-400) 10^3/c mm MPV 11.0 H (7.4-10.4) fL Neut % (Auto) 67.5 % Lymph % (Auto) 17.1 % [place] % (Auto) 11.1 % Eos % (Auto) 3.5 % Baso % (Auto) 0.5 % Neut # (Auto) 4.5 (1.8-7.7) 10^3/u L Lymph # (Auto) 1.1 (0.8-4.8) 10^3/u L Florence # (Auto) 0.7 (0.2-0.9) 10^3/u L Eos # (Auto) 0.2 (0.0-0.8) 10^3/u L Baso # (Auto) 0.0 (0.0-0.1) 10^3/u L Nucleated RBC % (a uto) 0 % Nucleated RBCs # 0.0 /100WBC PT 14.30 H (10.5-13.3) SECO NDS INR 1.08 (0.8-1.2) Specimen Type Sample Site ABG pH (7.35-7.45) ABG pCO2 (35-45) mmHg ABG pO2 (80.0-100.0) mmH g ABG HCO3 (22-26) mmol/L ABG Base Excess (-2.0-2.0) mmol/ L Damian Test Hematocrit (37-47) % O2 Delivery Device Air [employer] Logistics Manager ID Sodium 130 L (136-145) mmol/L Potassium 4.0 (3.5-5.1) mmol/L Chloride 98 (98-107) mmol/L Carbon Dioxide 22 (22-29) mmol/L Anion Gap 14.0 (5-19) BUN 11 (8-23) mg/dL Creatinine 0.6 (0.5-0.9) mg/dL GFR Calculation 100.3 (90-130) mL/min Glucose 281 H (65-115) mg/dL Calculated Osmolal ity 276 L (285-295) mOsm/k g Lactic Acid (0.5-2.2) mmol/L Calcium 9.0 (8.5-10.5) mg/dL Magnesium 1.5 L (1.7-2.3) mg/dL Total Bilirubin 1.0 (0.15-1.2) mg/dL AST 151 H (0-32) U/L ALT 79 H (0-33) U/L Alkaline Phosphata se 76 (35-105) IU/L Troponin T Baselin e (0-10) ng/mL Troponin T 120 Min [place] (0-10) ng/mL Delta Troponin T (0-10) ABS# Total Protein 7.7 (6.6-8.7) g/dL Albumin 3.2 L (3.5-5.2) g/dL Globulin 4.5 (1.3-4.6) g/dL Lipase 62 H (13-60) U/L Urine Color (Yellow) Urine Appearance (CLEAR) Urine pH (5-7) Ur Specific Gravit y (1.005-1.030) Urine Protein (Negative) Urine Glucose (UA) (Normal) Urine Ketones (Negative) Urine Blood (Negative) Urine Nitrate (Negative) Urine Bilirubin (NEGATIVE) Urine Urobilinogen (Negative) mg/dL Ur Leukocyte Liset ase (Negative) Urine RBC (0-2) /hpf Urine WBC (0-5) /hpf Ur Squamous Epith Cells (0-5) Urine Bacteria (NONE) Serum Ketones (Negative) Influenza Type A A g (Negative) Influenza Type B A g (Negative) 10/14/19 10/14/19 10/14/19 Range/Units 05:05 05:05 05:05 WBC (4.0-10.0) 10^3/ uL RBC (4.1-5.3) 10^6/u L Hgb (11.5-15.3) g/dL Hct (37.0-47.0) % MCV (81-99) fL MCH (28.0-34.0) pg MCHC (30.0-36.0) g/dL RDW (12.1-15.1) % Plt Count (130-400) 10^3/c mm MPV (7.4-10.4) fL Neut % (Auto) % Lymph % (Auto) % [place] % (Auto) % Eos % (Auto) % Baso % (Auto) % Neut # (Auto) (1.8-7.7) 10^3/u L Lymph # (Auto) (0.8-4.8) 10^3/u L [place] # (Auto) (0.2-0.9) 10^3/u L Eos # (Auto) (0.0-0.8) 10^3/u L Baso # (Auto) (0.0-0.1) 10^3/u L Nucleated RBC % (a uto) % Nucleated RBCs # /100WBC PT (10.5-13.3) SECO NDS INR (0.8-1.2) Specimen Type Sample Site ABG pH (7.35-7.45) ABG pCO2 (35-45) mmHg ABG pO2 (80.0-100.0) mmH g ABG HCO3 (22-26) mmol/L ABG Base Excess (-2.0-2.0) mmol/ L Damian Test Hematocrit (37-47) % O2 Delivery Device Air Export Logistics Manager ID Sodium (136-145) mmol/L Potassium (3.5-5.1) mmol/L Chloride (98-107) mmol/L Carbon Dioxide (22-29) mmol/L Anion Gap (5-19) BUN (8-23) mg/dL Creatinine (0.5-0.9) mg/dL GFR Calculation (90-130) mL/min Glucose (65-115) mg/dL Calculated Osmolal ity (285-295) mOsm/k g Lactic Acid 2.0 (0.5-2.2) mmol/L Calcium (8.5-10.5) mg/dL Magnesium (1.7-2.3) mg/dL Total Bilirubin (0.15-1.2) mg/dL AST (0-32) U/L ALT (0-33) U/L Alkaline Phosphata se (35-105) IU/L Troponin T Baselin e 6 (0-10) ng/mL Troponin T 120 Min [place] (0-10) ng/mL Delta Troponin T (0-10) ABS# Total Protein (6.6-8.7) g/dL Albumin (3.5-5.2) g/dL Globulin (1.3-4.6) g/dL Lipase (13-60) U/L Urine Color (Yellow) Urine Appearance (CLEAR) Urine pH (5-7) Ur Specific Gravit y (1.005-1.030) Urine Protein (Negative) Urine Glucose (UA) (Normal) Urine Ketones (Negative) Urine Blood (Negative) Urine Nitrate (Negative) Urine Bilirubin (NEGATIVE) Urine Urobilinogen (Negative) mg/dL Ur Leukocyte Liset ase (Negative) Urine RBC (0-2) /hpf Urine WBC (0-5) /hpf Ur Squamous Epith Cells (0-5) Urine Bacteria (NONE) Serum Ketones Negative (Negative) Influenza Type A A g (Negative) Influenza Type B A g (Negative) 10/14/19 10/14/19 10/14/19 Range/Units 05:13 06:00 06:10 WBC (4.0-10.0) 10^3/ uL RBC (4.1-5.3) 10^6/u L Hgb (11.5-15.3) g/dL Hct (37.0-47.0) % MCV (81-99) fL MCH (28.0-34.0) pg MCHC (30.0-36.0) g/dL RDW (12.1-15.1) % Plt Count (130-400) 10^3/c mm MPV (7.4-10.4) fL Neut % (Auto) % Lymph % (Auto) % [place] % (Auto) % Eos % (Auto) % Baso % (Auto) % Neut # (Auto) (1.8-7.7) 10^3/u L Lymph # (Auto) (0.8-4.8) 10^3/u L [place] # (Auto) (0.2-0.9) 10^3/u L Eos # (Auto) (0.0-0.8) 10^3/u L Baso # (Auto) (0.0-0.1) 10^3/u L Nucleated RBC % (a uto) % Nucleated RBCs # /100WBC PT (10.5-13.3) SECO NDS INR (0.8-1.2) Specimen Type Arterial Sample Site Radial, left ABG pH 7.40 (7.35-7.45) ABG pCO2 36.0 (35-45) mmHg ABG pO2 85.8 (80.0-100.0) mmH g ABG HCO3 22.3 (22-26) mmol/L ABG Base Excess -2.1 L (-2.0-2.0) mmol/ L Damian Test N/a Hematocrit 30.8 L (37-47) % O2 Delivery Device Room air Air Export Logistics Manager ID [email or web address] Sodium (136-145) mmol/L Potassium (3.5-5.1) mmol/L Chloride (98-107) mmol/L Carbon Dioxide (22-29) mmol/L Anion Gap (5-19) BUN (8-23) mg/dL Creatinine (0.5-0.9) mg/dL GFR Calculation (90-130) mL/min Glucose (65-115) mg/dL Calculated Osmolal ity (285-295) mOsm/k g Lactic Acid (0.5-2.2) mmol/L Calcium (8.5-10.5) mg/dL Magnesium (1.7-2.3) mg/dL Total Bilirubin (0.15-1.2) mg/dL AST (0-32) U/L ALT (0-33) U/L Alkaline Phosphata se (35-105) IU/L Troponin T Baselin e (0-10) ng/mL Troponin T 120 Min [place] (0-10) ng/mL Delta Troponin T (0-10) ABS# Total Protein (6.6-8.7) g/dL Albumin (3.5-5.2) g/dL Globulin (1.3-4.6) g/dL Lipase (13-60) U/L Urine Color Straw (Yellow) Urine Appearance Clear (CLEAR) Urine pH 6.5 (5-7) Ur Specific Gravit y 1.010 (1.005-1.030) Urine Protein Neg (Negative) Urine Glucose (UA) 4+ H (Normal) Urine Ketones Negative (Negative) Urine Blood Neg (Negative) Urine Nitrate Negative (Negative) Urine Bilirubin Neg (NEGATIVE) Urine Urobilinogen Norm (Negative) mg/dL Ur Leukocyte Liset ase Negative (Negative) Urine RBC None (0-2) /hpf Urine WBC None (0-5) /hpf Ur Squamous Epith Cells 0-4 H (0-5) Urine Bacteria None (NONE) Serum Ketones (Negative) Influenza Type A A g Negative (Negative) Influenza Type B A g Negative (Negative) 10/14/19 Range/Units 06:55 WBC (4.0-10.0) 10^3/ uL RBC (4.1-5.3) 10^6/u L Hgb (11.5-15.3) g/dL Hct (37.0-47.0) % MCV (81-99) fL MCH (28.0-34.0) pg MCHC (30.0-36.0) g/dL RDW (12.1-15.1) % Plt Count (130-400) 10^3/c mm MPV (7.4-10.4) fL Neut % (Auto) % Lymph % (Auto) % [place] % (Auto) % Eos % (Auto) % Baso % (Auto) % Neut # (Auto) (1.8-7.7) 10^3/u L Lymph # (Auto) (0.8-4.8) 10^3/u L [place] # (Auto) (0.2-0.9) 10^3/u L Eos # (Auto) (0.0-0.8) 10^3/u L Baso # (Auto) (0.0-0.1) 10^3/u L Nucleated RBC % (a uto) % Nucleated RBCs # /100WBC PT (10.5-13.3) SECO NDS INR (0.8-1.2) Specimen Type Sample Site ABG pH (7.35-7.45) ABG pCO2 (35-45) mmHg ABG pO2 (80.0-100.0) mmH g ABG HCO3 (22-26) mmol/L ABG Base Excess (-2.0-2.0) mmol/ L Damian Test Hematocrit (37-47) % O2 Delivery Device Air Export Logistics Manager ID Sodium (136-145) mmol/L Potassium (3.5-5.1) mmol/L Chloride (98-107) mmol/L Carbon Dioxide (22-29) mmol/L Anion Gap (5-19) BUN (8-23) mg/dL Creatinine (0.5-0.9) mg/dL GFR Calculation (90-130) mL/min Glucose (65-115) mg/dL Calculated Osmolal ity (285-295) mOsm/k g Lactic Acid (0.5-2.2) mmol/L Calcium (8.5-10.5) mg/dL Magnesium (1.7-2.3) mg/dL Total Bilirubin (0.15-1.2) mg/dL AST (0-32) U/L ALT (0-33) U/L Alkaline Phosphata se (35-105) IU/L Troponin T Baselin e (0-10) ng/mL Troponin T 120 Min [place] 6.14 (0-10) ng/mL Delta Troponin T 0.14 (0-10) ABS# Total Protein (6.6-8.7) g/dL Albumin (3.5-5.2) g/dL Globulin (1.3-4.6) g/dL Lipase (13-60) U/L Urine Color (Yellow) Urine Appearance (CLEAR) Urine pH (5-7) Ur Specific Gravit y (1.005-1.030) Urine Protein (Negative) Urine Glucose (UA) (Normal) Urine Ketones (Negative) Urine Blood (Negative) Urine Nitrate (Negative) Urine Bilirubin (NEGATIVE) Urine Urobilinogen (Negative) mg/dL Ur Leukocyte Liset ase (Negative) Urine RBC (0-2) /hpf Urine WBC (0-5) /hpf Ur Squamous Epith Cells (0-5) Urine Bacteria (NONE) Serum Ketones (Negative) Influenza Type A A g (Negative) Influenza Type B A g (Negative) Discharge Plan Discharge Patient Disposition: Home, Self-Care Clinical Impression: COPD exacerbation, Anemia Condition: Stable Prescriptions: New doxycycline hyclate 100 mg capsule 100 mg PO BID 10 Days Qty: 20 RF: 0 Medrol (Denis) 4 mg tablets,dose pack See Rx Instructions .ROUTE .COMPLEX Qty: 21 RF: 0 Advair Diskus 250-50 mcg/dose blister with device 1 inh INHALATION BID Qty: 60 RF: 0 albuterol sulfate 90 mcg/actuation HFA aerosol inhaler 2 inh INHALATION Q4H PRN (Reason: shortness of breath or wheezing) Qty: 18 RF: 0 Discontinued fluticasone propion-salmeterol [Advair Diskus] 100-50 mcg/dose Blister With Device 1 puff INHALATION BID RF: 0 No Action spironolactone 25 mg tablet 12.5 mg PO DAILY 30 Days Qty: 30 RF: 6 isosorbide mononitrate 30 mg tablet extended release 24 hr 30 mg PO DAILY 90 Days Qty: 90 RF: 3 potassium chloride 10 mEq Tablet Extended Release 10 meq PO DAILY RF: 0 pantoprazole [Protonix] 40 mg Tablet,Delayed Release (Dr/Ec) 40 mg PO DAILY RF: 0 bumetanide 1 mg Tablet 1 mg PO DAILY RF: 0 fluticasone propionate [Flonase Allergy Relief] 50 mcg/actuation [place],Suspension 2 spray INTRANASAL DAILY RF: 0 metformin 500 mg Tablet Extended Release 24 Hr 1,000 mg PO BID RF: 0 Premarin 1.25 mg Tablet 1.25 mg PO DAILY RF: 0 metoprolol tartrate 25 mg Tablet 25 mg PO BID RF: 0 aspirin [Aspir-81] 81 mg Tablet,Delayed Release (Dr/Ec) 81 mg PO DAILY RF: 0 loratadine 10 mg Tablet 10 mg PO DAILY RF: 0 Novolog Flexpen U-100 Insulin 100 unit/mL (3 mL) Insulin Pen See Rx Instructions .ROUTE .COMPLEX RF: 0 Levemir FlexTouch U-100 Insuln 100 unit/mL (3 mL) Insulin Pen 10 unit SUBCUT BID RF: 0 Effexor XR 150 mg capsule,extended release 24hr 150 mg PO DAILY RF: 0 atorvastatin 40 mg Tablet 20 mg PO DAILY Qty: 0 RF: 0 Discharge Orders: Discharge Order (Routine); Ordered 10/14/19 Ordered By: Too Ramirez Referrals: Yumiko Chavis MD [Physician] - Rad Branham DO [Primary Care Provider] - (Recheck your CBC within 1 week) Discharge Diet: Usual diet Discharge Activity: Increase activity as tolerated Activity Restrictions/Additional Instructions: Case management will call to get you set up for a pulmonary function test Sign Out Sign Out Data: Patient Sign Out occurred on 10/14/19 at 06:37. Patient's care was discussed, and care was transferred from Liza Zuniga to Too Ramirez DO. Sign Out Comment: Case turned over to Dr. Ramirez at change of shift. Last updated by Liza Zuniga at 10/14/19 05:50 Coding Level of Care Code ED Orchid Transplanter for Chg Fwd Exam Comprehensive
[2019-10-14 05:16] VITALS: BP 116/63; PULSE 64; RESP 16; TEMP 36.8; O2SAT 96; BMI 29.8
[2019-10-14 05:22] LABS: Basophils % 0.5 %; Eosinophils # 0.2 10^3/uL (0.0-0.8); Eosinophils % 3.5 %; Hematocrit 32.1 % (37.0-47.0); Hemoglobin 9.8 g/dL (11.5-15.3); Lymphocytes # 1.1 10^3/uL (0.8-4.8); Lymphocytes % 17.1 %; Mean Corpuscular HGB Conc 30.5 g/dL (30.0-36.0); Mean Corpuscular Hemoglobin 26.3 pg (28.0-34.0); Mean Corpuscular Volume 86.1 fL (81-99); Monocytes # 0.7 10^3/uL (0.2-0.9); Monocytes % 11.1 %; Neutrophils # 4.5 10^3/uL (1.8-7.7); Neutrophils % 67.5 %; Nucleated Red Blood Cells % 0 %; Platelet Count 160 10^3/cmm (130-400); Red Blood Count 3.73 10^6/uL (4.1-5.3); Red Cell Distribution Width 13.4 % (12.1-15.1); White Blood Count 6.6 10^3/uL (4.0-10.0)
[2019-10-14 05:24] LABS: Arterial Blood Gas Hematocrit 30.8 % (37-47); Base Excess ABG -2.1 mmol/L (-2.0-2.0); Blood Gas Sample Site Radial, left; Blood Gas Sample Type Arterial; HCO3 ABG 22.3 mmol/L (22-26); Oxygen Device ROOM AIR; PO2 ABG 85.8 mmHg (80.0-100.0)
[2019-10-14 05:28] LABS: Ketone (Acetest) Serum Negative (Negative)
[2019-10-14 05:29] LABS: INR 1.08 (0.8-1.2)
[2019-10-14 05:37] LABS: Alanine Aminotransferase 79 U/L (0-33); Albumin Level 3.2 g/dL (3.5-5.2); Alkaline Phosphatase 76 IU/L (35-105); Aspartate Amino Transferase 151 U/L (0-32); Blood Urea Nitrogen 11 mg/dL (8-23); Carbon Dioxide 22 mmol/L (22-29); Chloride 98 mmol/L (98-107); Globulin 4.5 g/dL (1.3-4.6); Glomerular Filtration Rate 100.3 mL/min (90-130); Glucose 281 mg/dL (65-115); Lipase 62 U/L (13-60); Magnesium 1.5 mg/dL (1.7-2.3); Osmolality Calculated 276 mOsm/kg (285-295); Sodium 130 mmol/L (136-145); Total Protein 7.7 g/dL (6.6-8.7)
[2019-10-14] MEDS: sodium chloride 0.9% 1,000 ML 100 ML IV (06:11)
[2019-10-14] MEDS: ondansetron 2 mg/ML SDV 2 mL 4 MG IVP (06:11)
[2019-10-14 06:34] LABS: Bilirubin Urine Neg (NEGATIVE); Blood Urine Neg (Negative); Glucose Urine UA 4+ (Normal); Ketones Urine Negative (Negative); Leukocyte Esterase Urine Negative (Negative); Nitrate Urine Negative (Negative); Protein Urine Neg (Negative); Urine Appearance Clear (CLEAR); Urine Color Straw (Yellow); Urobilinogen Urine Norm (Negative); pH Urine 6.5 (5-7)
[2019-10-14 06:40] LABS: Add Urine Culture? No; Squamous Epithelial Cell Urine 0-4 (0-5)
--- NOTE | 2019-10-14 06:41 | ECG_ITS ---
Measurements Intervals [place] Rate: 61 P: -2 RI: 147 QRS: 43 QRSD: 103 T: 4 QT: 430 QTc: 436 SINUS RHYTHM INCOMPLETE RIGHT BUNDLE BRANCH BLOCK [90+ ms QRS DURATION, TERMINAL R IN V1/V2, 40+ ms S IN I/aVL/V4/V5/V6] INFERIOR MYOCARDIAL INFARCTION , PROBABLY OLD [40+ ms Q WAVE AND/OR ST/T AB ABNORMALITY IN II/aVF] Compared to ECG 08/24/2019 10:47:38 Incomplete right bundle-branch block now present Myocardial infarct finding now present Sinus bradycardia no longer present Electronically Signed On 10-15-2019 6:45:26 CDT by Eder Brownlee M.D. [email or web address]
[2019-10-14 06:42] LABS: Troponin(5th) Baseline 6 ng/mL (0-10)
[2019-10-14 06:49] LABS: Influenza A by IFA Negative (Negative); Influenza B by IFA Negative (Negative)
[2019-10-14 07:26] LABS: Troponin 5 2HR 6.14 ng/mL (0-10); Troponin 5 2HR Delta 0.14 ABS# (0-10)
[2019-10-14 07:38] VITALS: BP 106/67; PULSE 63; RESP 16; O2SAT 99
[2019-10-14 08:02] VITALS: BP 106/67; PULSE 70; RESP 16; O2SAT 99
--- NOTE | 2019-10-14 15:51 | DCPLANNER ---
policy manager had message to schedule a follow up appointment for patient with Dr. Chavis. policy manager also had an order that patient would need a pulmonary function test. policy manager got order the pulmonary function test, got it signed and fax[facility] it to [facility]. policy manager called [facility], spoke with Alessia, gave clinic patients information. Clinic will call patient with scheduled appointments for follow up with Dr. Chavis and for the pulmonary function test.
--- NOTE | 2019-10-29 15:25 | DCPLANNER ---
dining room manager called [facility], spoke with Alessia, cyanide case hardener asked if an appointment had been scheduled for patient with Dr. Chavis. dining room manager spoke with Alessia, was told that clinic is not scheduling that pulmonary function test at this time, when the clinic starts to schedule those again then an appointment will be scheduled for that and a followup appointment for patient with Dr. Chavis will be scheduled.
--- NOTE | 2019-11-12 15:11 | DCPLANNER ---
mutual fund manager called [facility], spoke with Alessia, to confirm if a pulmonary function test or a followup appointment with Dr. Chavis had been scheduled. mutual fund manager was told that the order for the pulmonary function test went to centralized scheduling to be scheduled. mutual fund manager called centralized scheduling, spoke with Claudia, was told that they have the order, but it has not been scheduled at this time.
== END 2019-10-14 08:06 | disposition home or self-care (01) ==
PROVIDERS: Emergency Medicine; Emergency Provider Family Medicine; Family Provider Internal Medicine; PCP Internal Medicine
DX: J44.1 Chronic obstructive pulmonary disease with (acute) exacerbation (principal); D64.9 Anemia, unspecified; Z79.82 Long term (current) use of aspirin; Z79.4 Long term (current) use of insulin; F17.210 Nicotine dependence, cigarettes, uncomplicated; I11.0 Hypertensive heart disease with heart failure; I50.30 Unspecified diastolic (congestive) heart failure; E78.5 Hyperlipidemia, unspecified; E11.9 Type 2 diabetes mellitus without complications
CPT/HCPCS: 12345; 36415; 36600; 71045; 80053; 81001; 82009; 82803; 83605; 83690; 83735; 84484; 85025; 85610; 87040; 87804; 93005; 96360; 96361; 96374; 99283; 99284; J2405; J7030

== ENCOUNTER 2019-12-11 10:36 | Outpatient (CLI) | payer MEDICARE, MEDICAID, SELFPAY ==
--- NOTE | 2019-12-11 12:28 | PFTS_ITS ---
Date of Study:12/11/19 Date of Dictation: MECHANICS: Forced vital capacity (FVC) is normal. Forced expiratory volume in one second (FEV1) is normal. FEV1/FVC is normal. FLOW VOLUME LOOP: Normal. LUNG VOLUMES: Total lung capacity (TLC) is normal. Residual volume (RV) is mildly reduced likely secondary to increased expiratory reserve volume. DIFFUSING CAPACITY FOR CARBON MONOXIDE: Normal. INTERPRETATION: The pulmonary function tests are normal. Lung volumes are normal. Gas exchange (DLCO) is normal. MTDD
== END 2019-12-11 10:37 | disposition home or self-care (01) ==
LOC: RT 10:36
PROVIDERS: PCP Internal Medicine; Visit Provider Family Medicine
DX: J44.9 Chronic obstructive pulmonary disease, unspecified (principal)
CPT/HCPCS: 94010; 94726; 94729

== ENCOUNTER 2019-12-25 18:32 | Emergency (ER) | payer MEDICARE, MEDICAID, SELFPAY ==
[2019-12-25] VITALS (8 sets, daily range): BP systolic 105–129; BP diastolic 74–98; PULSE 72–78; RESP 16–22; TEMP 36.9; O2SAT 96–100; BMI 30.1
--- NOTE | 2019-12-25 19:25 | PC.NURSE ---
Blood Sugar 253. Chest pain, EKG done
--- NOTE | 2019-12-25 20:28 | XRR_ITS ---
PROCEDURE INFORMATION: Exam: XR Chest, 1 View Exam date and time: 12/25/2019 8:42 PM Age: 64 years old Clinical indication: Type not specified; Patient HX: Chest pain getting progressively worse over last week. ; Additional info: Cp TECHNIQUE: Imaging protocol: XR of the chest Views: 1 view. COMPARISON: CR XR chest 1V portable [id number] 10/14/2019 4:49 AM FINDINGS: Lungs: Unremarkable. No consolidation. Pleural space: Unremarkable. No pleural effusion. No pneumothorax. Heart/Mediastinum: Unremarkable. No cardiomegaly. Bones/joints: Unremarkable. XR/XR chest 1V portable [id number] IMPRESSION: No acute findings.
[2019-12-25 20:40] LABS: Basophils % 0.6 %; Eosinophils # 0.2 10^3/uL (0.0-0.8); Eosinophils % 2.5 %; Hematocrit 37.8 % (37.0-47.0); Hemoglobin 11.1 g/dL (11.5-15.3); Lymphocytes # 3.1 10^3/uL (0.8-4.8); Lymphocytes % 45.8 %; Mean Corpuscular HGB Conc 29.4 g/dL (30.0-36.0); Mean Corpuscular Hemoglobin 24.9 pg (28.0-34.0); Mean Corpuscular Volume 84.8 fL (81-99); Mean Platelet Volume 11.2 fL (7.4-10.4); Monocytes # 0.7 10^3/uL (0.2-0.9); Monocytes % 10.7 %; Neutrophils # 2.7 10^3/uL (1.8-7.7); Neutrophils % 40.1 %; Nucleated Red Blood Cells % 0 %; Platelet Count 164 10^3/cmm (130-400); Red Blood Count 4.46 10^6/uL (4.1-5.3); Red Cell Distribution Width 14.1 % (12.1-15.1); White Blood Count 6.7 10^3/uL (4.0-10.0)
[2019-12-25 20:55] LABS: Troponin(5th) Baseline 6 ng/L (0-10)
[2019-12-25 21:01] LABS: Alanine Aminotransferase 58 U/L (0-33); Albumin Level 3.4 g/dL (3.5-5.2); Alkaline Phosphatase 87 IU/L (35-105); Anion Gap 14.3 (5-19); Aspartate Amino Transferase 100 U/L (0-32); Blood Urea Nitrogen 10 mg/dL (8-23); Calcium 8.6 mg/dL (8.5-10.5); Carbon Dioxide 22 mmol/L (22-29); Chloride 99 mmol/L (98-107); Creatine Phosphokinase 88 U/L (26-192); Creatinine Clr Calc Pharmacy 68.9346; Globulin 5.2 g/dL (1.3-4.6); Glomerular Filtration Rate 100.3 mL/min (90-130); Glucose 262 mg/dL (65-115); NT Pro B Type Natriuretic Pept 31 pg/mL (0-125); Osmolality Calculated 279 mOsm/kg (285-295); Potassium 3.3 mmol/L (3.5-5.1); Sodium 132 mmol/L (136-145); Total Bilirubin 0.3 mg/dL (0.15-1.2); Total Protein 8.6 g/dL (6.6-8.7)
--- NOTE | 2019-12-25 21:04 | XRR_ITS ---
PROCEDURE INFORMATION: Exam: XR Left Foot Complete Exam date and time: 12/25/2019 9:14 PM Age: 64 years old Clinical indication: Pain; Toes; Bilateral; Additional info: Wound to great toe TECHNIQUE: Imaging protocol: XR Left foot. Views: 3 or more views. COMPARISON: CR Foot 3 views, LEFT* [id number] 04/03/2016 4:17 PM FINDINGS: Bones/joints: Osteopenia/osteoporosis. Small heel spur. Mild subtalar sclerosis. Bifid medial sesamoid the hallux. No visible fracture, subluxation, or dislocation. No visible osteolytic destructive process. Soft tissues: No visible subcutaneous emphysema or radiopaque foreign body. XR/XR foot LT min 3V* [id number] IMPRESSION: Nonacute.
[2019-12-25] MEDS: potassium chloride ER 10 mEq Tablet 40 MEQ PO (21:36)
--- NOTE | 2019-12-25 22:01 | W.ED.CHESTPA ---
HPI - Chest Pain General: Chief Complaint: Chest Pain Stated Complaint: n/v Time Seen by Provider: 12/25/19 20:28 History of Present Illness: HPI narrative: 64-year-old female presents from the [facility] walk-in clinic. She had gone there because of a diabetic foot ulcer that she thought had become infected. It was hurting her more. She had gotten sick to her stomach. In triage, she also complained of heart palpitations and chest pressure that she had had the night before. She has had these on and off. They seem to be worse last night. MD complaint: chest pain and chest heaviness Timing of current episode: episodic Prior episodes: Yes Onset: during rest Pain location: substernal Pain radiation: none Associated symptoms: Reports diaphoresis, dyspnea, nausea, palpitations and vomiting; Deny abdominal pain or fever(s) Review of Systems Const: Reports: diaphoresis; Denies: fever(s) Eyes: Denies: change in vision ENMT: Denies: swelling of lips/tongue, change in hearing or epistaxis Card: Reports: chest pain, palpitations, edema, swelling of feet/ankles and dyspnea on exertion Resp: Reports: dyspnea GI: Reports: nausea and vomiting; Denies: abdominal pain : Denies: dysuria or hematuria Musc: Reports: back pain; Denies: neck pain, joint redness or joint warmth Skin/Breast: Denies: rash, pruritus or erythema Neuro: Denies: headache(s) or dizziness Psych: Denies: anxiety or visual hallucinations PFSH ED PFSH: Medical History (Updated 12/25/19 @ 22:21 by Fernando Gilliland DO) COPD (chronic obstructive pulmonary disease) Coronary artery disease Depression with anxiety Diastolic heart failure Hyperlipidemia Hypertension Hypothyroidism Type 2 diabetes mellitus Surgical History History of appendectomy History of cholecystectomy History of hysterectomy History of uvulopalatopharyngoplasty S/P percutaneous transluminal angioplasty (COMB WINDER) with stent placement Family History Other CAD (coronary artery disease) Social History Smoking and tobacco status: current every day smoker Alcohol intake: never History of recent travel: No Physical Exam Const: GENERAL APPEARANCE: well developed ORIENTATION/CONSCIOUSNESS: Yes oriented to person, Yes oriented to place and Yes oriented to time HENMT: COMMON NORMALS: normocephalic, external ears normal and Normal external nose present HEAD & SCALP: normocephalic FACE & SINUS: normal facial exam NOSE: Normal external nose present and No nasal discharge present EXTERNAL EAR: Yes external ears normal MOUTH: tongue normal Eye: COMMON NORMALS: Equal, round and reactive pupils present, EOMs intact bilaterally and conjunctivae normal EYELID: eyelids normal CONJUNCTIVA: Yes conjunctivae normal PUPIL: Yes Equal, round and reactive pupils present Neck/C-Spine: COMMON NORMALS: full ROM GENERAL: No tracheal deviation Chest: COMMONS NORMALS: normal inspection of the chest CHEST: No tenderness Resp: COMMON NORMALS: clear to auscultation bilaterally EFFORT & INSPECTION: No tachypneic, No respiratory distress, No retractions, No uses accessory muscles and No tracheal deviation AUSCULTATION: clear to auscultation bilaterally, no rhonchi, no wheezes and lung sounds not diminished Cardio: COMMON NORMALS: regular rate and regular rhythm RATE: regular rate RHYTHM: regular rhythm HEART SOUNDS: no murmurs PERIPHERAL PULSES: radial pulses present GI: INSPECTION: No abdominal distension AUSCULTATION: No Hyperactive bowel sounds present and No Hypoactive bowel sounds present PALPATION: No Guarding due to palpation present (GI) and No Rigid due to palpation PERCUSSION: no dullness to percussion and no tympanic to percussion Neuro: SENSORIUM/ORIENTATION: Yes oriented to person, Yes oriented to place and Yes oriented to time Psych: COMMON NORMALS: mental status grossly normal Course Vital Signs: Vital signs: Vital Signs Temperature 98.5 F 12/25/19 19:11 Pulse Rate 78 12/25/19 22:53 Respiratory Rate 18 12/25/19 22:53 Blood Pressure 122/89 12/25/19 22:53 Pulse Oximetry 99 12/25/19 22:53 MDM - Chest Pain MDM Narrative: Medical decision making narrative: 64-year-old lady presenting because she was sent for debridement of her foot ulcer, to the ER from urgent care. There is mild swelling to the ulcer. There is mild redness. There is no streaking. There is no drainage. Is mild tenderness x-ray shows some likely early bony destruction, so osteomyelitis is a possibility. She was hypokalemic. This was repleted. Her troponins did not elevate. Her EKGs did not show significant ST change. Her hemoglobin is 11. Her white blood cell count is 6.7. She will be started on doxycycline for the foot ulcer and referred to wound care. She will follow-up regarding her chest discomfort. Lab Data: Labs: Lab Results 12/25/19 12/25/19 12/25/19 Range/Units 19:24 20:21 20:21 WBC 6.7 (4.0-10.0) 10^3/ uL RBC 4.46 (4.1-5.3) 10^6/u L Hgb 11.1 L (11.5-15.3) g/dL Hct 37.8 (37.0-47.0) % MCV 84.8 (81-99) fL MCH 24.9 L (28.0-34.0) pg MCHC 29.4 L (30.0-36.0) g/dL RDW 14.1 (12.1-15.1) % Plt Count 164 (130-400) 10^3/c mm MPV 11.2 H (7.4-10.4) fL Neut % (Auto) 40.1 % Lymph % (Auto) 45.8 % [place] % (Auto) 10.7 % Eos % (Auto) 2.5 % Baso % (Auto) 0.6 % Neut # (Auto) 2.7 (1.8-7.7) 10^3/u L Lymph # (Auto) 3.1 (0.8-4.8) 10^3/u L [place] # (Auto) 0.7 (0.2-0.9) 10^3/u L Eos # (Auto) 0.2 (0.0-0.8) 10^3/u L Baso # (Auto) 0.0 (0.0-0.1) 10^3/u L Nucleated RBC % (a uto) 0 % Nucleated RBCs # 0.0 /100WBC Sodium 132 L (136-145) mmol/L Potassium 3.3 L (3.5-5.1) mmol/L Chloride 99 (98-107) mmol/L Carbon Dioxide 22 (22-29) mmol/L Anion Gap 14.3 (5-19) BUN 10 (8-23) mg/dL Creatinine 0.6 (0.5-0.9) mg/dL GFR Calculation 100.3 (90-130) mL/min Glucose 262 H (65-115) mg/dL POC Glucose 253 (70-110) mg/dL Calculated Osmolal ity 279 L (285-295) mOsm/k g Calcium 8.6 (8.5-10.5) mg/dL Total Bilirubin 0.3 (0.15-1.2) mg/dL AST 100 H (0-32) U/L ALT 58 H (0-33) U/L Alkaline Phosphata se 87 (35-105) IU/L Creatine Kinase 88 (26-192) U/L Troponin T Baselin e (0-10) ng/L Troponin T 120 Min [place] (0-10) ng/L Delta Troponin T (0-10) ABS# C-Reactive Protein 13.2 H (0.0-4.9) mg/L NT-Pro-B Natriuret Pep 31 (0-125) pg/mL Total Protein 8.6 (6.6-8.7) g/dL Albumin 3.4 L (3.5-5.2) g/dL Globulin 5.2 H (1.3-4.6) g/dL 12/25/19 12/25/19 Range/Units 20:21 22:22 WBC (4.0-10.0) 10^3/ uL RBC (4.1-5.3) 10^6/u L Hgb (11.5-15.3) g/dL Hct (37.0-47.0) % MCV (81-99) fL MCH (28.0-34.0) pg MCHC (30.0-36.0) g/dL RDW (12.1-15.1) % Plt Count (130-400) 10^3/c mm MPV (7.4-10.4) fL Neut % (Auto) % Lymph % (Auto) % [place] % (Auto) % Eos % (Auto) % Baso % (Auto) % Neut # (Auto) (1.8-7.7) 10^3/u L Lymph # (Auto) (0.8-4.8) 10^3/u L [place] # (Auto) (0.2-0.9) 10^3/u L Eos # (Auto) (0.0-0.8) 10^3/u L Baso # (Auto) (0.0-0.1) 10^3/u L Nucleated RBC % (a uto) % Nucleated RBCs # /100WBC Sodium (136-145) mmol/L Potassium (3.5-5.1) mmol/L Chloride (98-107) mmol/L Carbon Dioxide (22-29) mmol/L Anion Gap (5-19) BUN (8-23) mg/dL Creatinine (0.5-0.9) mg/dL GFR Calculation (90-130) mL/min Glucose (65-115) mg/dL POC Glucose (70-110) mg/dL Calculated Osmolal ity (285-295) mOsm/k g Calcium (8.5-10.5) mg/dL Total Bilirubin (0.15-1.2) mg/dL AST (0-32) U/L ALT (0-33) U/L Alkaline Phosphata se (35-105) IU/L Creatine Kinase (26-192) U/L Troponin T Baselin e 6 (0-10) ng/L Troponin T 120 Min [place] 6.00 (0-10) ng/L Delta Troponin T 0 (0-10) ABS# C-Reactive Protein (0.0-4.9) mg/L NT-Pro-B Natriuret Pep (0-125) pg/mL Total Protein (6.6-8.7) g/dL Albumin (3.5-5.2) g/dL Globulin (1.3-4.6) g/dL Discharge Plan Discharge Patient Disposition: Home, Self-Care Clinical Impression: Heart palpitations, Acute hypokalemia Diabetic foot ulcer Qualifiers: Diabetic foot ulcer location: toe Diabetes mellitus type: type 2 Laterality: right Non-pressure ulcer stage: unspecified non-pressure ulcer stage Qualified Code(s): E11.621 - Type 2 diabetes mellitus with foot ulcer Condition: Stable Prescriptions: New doxycycline hyclate 100 mg capsule 100 mg PO BID 14 Days Qty: 28 RF: 0 doxycycline hyclate 100 mg capsule 100 mg PO BID 10 Days Qty: 20 RF: 0 No Action spironolactone 25 mg tablet 12.5 mg PO DAILY 30 Days Qty: 30 RF: 6 isosorbide mononitrate 30 mg tablet extended release 24 hr 30 mg PO DAILY 90 Days Qty: 90 RF: 3 potassium chloride 10 mEq Tablet Extended Release 10 meq PO DAILY RF: 0 pantoprazole [Protonix] 40 mg Tablet,Delayed Release (Dr/Ec) 40 mg PO DAILY RF: 0 bumetanide 1 mg Tablet 1 mg PO DAILY RF: 0 fluticasone propionate [Flonase Allergy Relief] 50 mcg/actuation [place],Suspension 2 spray INTRANASAL DAILY RF: 0 metformin 500 mg Tablet Extended Release 24 Hr 1,000 mg PO BID RF: 0 Premarin 1.25 mg Tablet 1.25 mg PO DAILY RF: 0 metoprolol tartrate 25 mg Tablet 25 mg PO BID RF: 0 aspirin [Aspir-81] 81 mg Tablet,Delayed Release (Dr/Ec) 81 mg PO DAILY RF: 0 loratadine 10 mg Tablet 10 mg PO DAILY RF: 0 Novolog Flexpen U-100 Insulin 100 unit/mL (3 mL) Insulin Pen See Rx Instructions .ROUTE .COMPLEX RF: 0 Levemir FlexTouch U-100 Insuln 100 unit/mL (3 mL) Insulin Pen 10 unit SUBCUT BID RF: 0 Effexor XR 150 mg capsule,extended release 24hr 150 mg PO DAILY RF: 0 atorvastatin 40 mg Tablet 20 mg PO DAILY Qty: 0 RF: 0 Medrol (Denis) 4 mg tablets,dose pack See Rx Instructions .ROUTE .COMPLEX Qty: 21 RF: 0 Advair Diskus 250-50 mcg/dose blister with device 1 inh INHALATION BID Qty: 60 RF: 0 albuterol sulfate 90 mcg/actuation HFA aerosol inhaler 2 inh INHALATION Q4H PRN (Reason: shortness of breath or wheezing) Qty: 18 RF: 0 Referrals: Rad Branham DO [Primary Care Provider] - Discharge Diet: Usual diet Discharge Activity: Increase activity as tolerated Patient Instructions: Palpitations (ED), Hypokalemia (ED), Diabetic Foot Ulcers (ED) Activity Restrictions/Additional Instructions: Case management referral has been sent to wound care for continued care of your ulcer. Antibiotics should treat the ulcer for now. No need for acute debridement. Return for repeated episodes of chest palpitations, discomfort, shortness of breath, other concerning symptoms. antibiotics as directed Discharge Date/Time: 12/25/19 22:54 Coding Level of Care Code ED [place] for Jeff Fwd Exam Comprehensive
[2019-12-25 22:43] LABS: Troponin 5 2HR Delta 0 ABS# (0-10)
[2019-12-25] MEDS: fluconazole 100 mg Tablet 150 MG PO (22:52)
[2019-12-26 02:45] LABS: C Reactive Protein 13.2 mg/L (0.0-4.9)
[2019-12-26 04:26] LABS: Glucose Point of Care 253 mg/dL (70-110)
--- NOTE | 2019-12-28 14:26 | DCPLANNER ---
manager business management had message to schedule a follow up appointment for patient with Wound Care. manager business management called Wound Care, spoke with Layne, gave clinic patients information. A follow up appointment is scheduled for Sunday, January 05, 2020 at 1:[address] Raza, clinic will call patient with appointment information.
--- NOTE | 2020-01-14 13:38 | DCPLANNER ---
Patient did not attend appointment scheduled for 01.05.20 with Wound Care.
== END 2019-12-25 22:54 | disposition home or self-care (01) ==
PROVIDERS: Emergency Provider Emergency Medicine; PCP Internal Medicine
DX: E11.621 Type 2 diabetes mellitus with foot ulcer (principal); R00.2 Palpitations; E87.6 Hypokalemia; Z79.82 Long term (current) use of aspirin; Z79.4 Long term (current) use of insulin; J44.9 Chronic obstructive pulmonary disease, unspecified; I25.10 Atherosclerotic heart disease of native coronary artery without angina pectoris; I11.0 Hypertensive heart disease with heart failure; I50.30 Unspecified diastolic (congestive) heart failure; E78.5 Hyperlipidemia, unspecified; F17.210 Nicotine dependence, cigarettes, uncomplicated
CPT/HCPCS: 12345; 36416; 71045; 73630; 80053; 82550; 82962; 83880; 84484; 85025; 86140; 99283; 99284

== ENCOUNTER 2020-04-12 13:40 | Emergency (ER) | payer MEDICARE, MEDICAID, SELFPAY ==
[2020-04-12] VITALS (8 sets, daily range): BP systolic 113–130; BP diastolic 66–87; PULSE 58–78; RESP 16–21; TEMP 36.8–37.2; O2SAT 94–99; BMI 30.1
--- NOTE | 2020-04-12 13:59 | XRR_ITS ---
PROCEDURE INFORMATION: Exam: XR Chest, 1 View Exam date and time: 04/12/2020 2:16 PM Age: 64 years old Clinical indication: Cough and shortness of breath; Additional info: Covid rule out, cough, SOB TECHNIQUE: Imaging protocol: XR of the chest Views: 1 view. COMPARISON: CR XR chest 1V portable [id number] 12/25/2019 8:30 PM FINDINGS: Lungs: Unremarkable. No consolidation. Suboptimal evaluation of the lung bases. Pleural space: Unremarkable. No pleural effusion. No pneumothorax. Heart/Mediastinum: Unremarkable. No cardiomegaly. Diaphragm: Stable right hemidiaphragm elevation. Bones/joints: No acute findings. XR/XR chest 1V portable [id number] IMPRESSION: No acute findings.
--- NOTE | 2020-04-12 14:00 | ECG_ITS ---
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 Measurements Intervals [place] Rate: 62 P: -10 ME: 147 QRS: 33 QRSD: 89 T: 51 QT: 439 QTc: 446 Interpretive Statements SINUS RHYTHM WITH SINUS ARRHYTHMIA LOW QRS VOLTAGE IN PRECORDIAL LEADS MINIMAL ST DEPRESSION [0.025+ mV ST DEPRESSION] Compared to ECG 10/14/2019 06:10:02 Low QRS voltage now present ST (T wave) deviation now present Incomplete right bundle-branch block no longer present Myocardial infarct finding no longer present Electronically Signed On 04-12-2020 16:25:42 CDT by Kylah Polk M.D. [id number]
[2020-04-12 14:49] LABS: Basophils # 0.1 10^3/uL (0.0-0.1); Basophils % 0.9 %; Eosinophils # 0.1 10^3/uL (0.0-0.8); Eosinophils % 0.6 %; Hematocrit 37.3 % (37.0-47.0); Hemoglobin 12.1 g/dL (11.5-15.3); Lymphocytes # 3.7 10^3/uL (0.8-4.8); Mean Corpuscular HGB Conc 32.4 g/dL (30.0-36.0); Mean Corpuscular Hemoglobin 26.4 pg (28.0-34.0); Mean Corpuscular Volume 81.3 fL (81-99); Mean Platelet Volume 10.2 fL (7.4-10.4); Monocytes # 1.3 10^3/uL (0.2-0.9); Monocytes % 11.1 %; Neutrophils # 6.41 10^3/uL (1.8-7.7); Neutrophils % 54.9 %; Nucleated Red Blood Cells % 0 %; Platelet Count 142 10^3/cmm (130-400); Red Blood Count 4.59 10^6/uL (4.1-5.3); Red Cell Distribution Width 17.7 % (12.1-15.1); White Blood Count 11.7 10^3/uL (4.0-10.0)
[2020-04-12 15:14] LABS: Lactic Sepsis W/Reflex 2.6 mmol/L (0.5-2.2)
[2020-04-12 15:18] LABS: INR 1.31 (0.8-1.2)
[2020-04-12 15:19] LABS: Fibrinogen 390 mg/dL (174-498)
[2020-04-12 15:22] LABS: D Dimer 1.95 ug/mIFEU (0-0.59)
[2020-04-12 15:28] LABS: Influenza A by IFA Negative (Negative); Influenza B by IFA Negative (Negative); SARS Covid-2 Antigen Negative (Negative)
[2020-04-12 15:41] LABS: Troponin(5th) Baseline 6 ng/L (0-10)
--- NOTE | 2020-04-12 15:44 | ED_ITS ---
HPI - COVID General: Chief Complaint: COVID symptoms Stated Complaint: FEVER, COUGH Time Seen by Provider: 04/12/20 13:43 Triage information: Has fever, cough or shortness of breath . No known COVID + exposure last 14 days History of Present Illness: HPI Narrative: This patient is a 64-year-old female who presents by EMS from home. She called EMS for shortness of breath and cough. She reports having fevers as high as 103 at nighttime. She has been sick with the symptoms for 3 weeks. She has had daily symptoms. She has had vomiting and only 1 day of diarrhea. She said she also has a cough that sometimes makes her throw up but for the most part she just has nausea and vomiting. She has not been able to eat or drink anything. She complains of some chest pain and pain between her shoulder blades yesterday. She has had a known exposure to someone with Covid but she was completely unable to tell me when that occurred. It seems like it was sometime within the past week but her symptoms have been ongoing for 3 weeks. She had been on antibiotics for an infected toe. That was prior to these symptoms starting. She also has a rash on her legs that is petechial and she said comes and goes. She said that has b een going on for longer than 3 weeks. She also has a rash on her hands which for the most part is chronic but she showed me a few areas that she said were new since yesterday. complaint: reported COVID exposure and has COVID symptoms Prior covid testing: no COVID 19 common symptoms: positive fever(s), chills, cough, productive cough, dyspnea, fatigue, body aches, nausea, vomiting and diarrhea; negative headache(s) or loss of sense of smell and/or taste COVID 19 other sytmptoms: positive chest pain Onset (ago): week(s) (3) Severity: moderate Pertinent comorbid conditions: diabetes and COPD/respiratory disease COVID Results: SARS-CoV-2 Antigen (Rapid) Negative (Negative) 04/12/20 14:35 04/12/20 Review of Systems General: Reports: 10 or more systems reviewed and unremarkable except in HPI and below Const: Reports: fever(s), chills, body aches and fatigue Eyes: Denies: change in vision ENMT: Denies: odynophagia Card: Reports: chest pain Resp: Reports: dyspnea and productive cough GI: Reports: nausea, vomiting and diarrhea; Denies: abdominal pain : Denies: flank pain or difficulty voiding Musc: Reports: back pain; Denies: neck pain Skin/Breast: Reports: rash (As per HPI) Neuro: Reports: weakness in extremities (Generalized); Denies: headache(s) or numbness in extremities Aj/Lymph: Denies: easy bruising or easy bleeding PFSH ED PFSH: Medical History COPD (chronic obstructive pulmonary disease) Coronary artery disease Depression with anxiety Diastolic heart failure Hyperlipidemia Hypertension Hypothyroidism Type 2 diabetes mellitus Surgical History History of appendectomy History of cholecystectomy History of hysterectomy History of uvulopalatopharyngoplasty 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 Family History Other CAD (coronary artery disease) Social History Smoking and tobacco status: current every day smoker Alcohol intake: never History of recent travel: No Physical Exam Const: COMMON NORMALS: no acute distress, patient oriented x3, no limitations and alert GENERAL APPEARANCE: cooperative and comfortable HENMT: HEAD & SCALP: normal to inspection FACE & SINUS: normal facial exam Eye: GENERAL EYE: appearance normal, both eyes and all related structures Neck/C-Spine: COMMON NORMALS: supple, no meningeal signs and no JVD Chest: COMMONS NORMALS: normal inspection of the chest Resp: COMMON NORMALS: normal respiratory effort, No use of accessory muscles and clear to auscultation bilaterally AUSCULTATION: clear to auscultation bilaterally Cardio: COMMON NORMALS: no JVD, regular rate, regular rhythm and No murmurs present (Cardio) RATE: regular rate RHYTHM: regular rhythm GI: COMMON NORMALS: Normal to inspection, nondistended, normoactive bowel sounds present, Soft to palpation and non-tender INSPECTION: Yes normal to inspection AUSCULTATION: Yes normoactive bowel sounds PALPATION: Yes Soft to palpation Back/Pelvis: COMMON NORMALS: thoracic and lumbar spine normal to inspection Extremity: COMMON NORMALS: normal to inspection Neuro: COMMON NORMALS: patient oriented x3, moves all extremities, no focal motor deficits and no sensory deficits noted SENSORIUM/ORIENTATION: Yes alert MENINGEAL SIGNS: Yes no meningeal signs Psych: COMMON NORMALS: mental status grossly normal, cooperative and normal affect Skin: COMMON NORMALS: no rashes or lesions noted and turgor normal GENERAL SKIN EXAM: no rashes or lesions noted and turgor normal Course ED course: Patient with vague complaints - neg covid. No vomiting while in the ED. Whilst talking with her and going over her test results - she complained that Dr. Branham had taken away her premarin and that may be the root of all her complaints. We discussed that premarin is not a benign drug and I would not write it for her. She was encouraged to follow up with her PCP for further evaluation and treatment. Vital Signs: Vital signs: Vital Signs Temperature 98.3 F 04/12/20 17:42 Pulse Rate 78 04/12/20 19:44 Respiratory Rate 16 04/12/20 19:44 Blood Pressure 113/71 04/12/20 19:44 Pulse Oximetry 94 04/12/20 19:44 MDM - COVID Lab Data Result diagrams: 04/12/20 14:30 04/12/20 14:30 Labs: Lab Results 04/12/20 04/12/20 04/12/20 Range/Units 14:30 14:30 14:30 WBC 11.7 H (4.0-10.0) 10^3/uL RBC 4.59 (4.1-5.3) 10^6/uL Hgb 12.1 (11.5-15.3) g/dL Hct 37.3 (37.0-47.0) % MCV 81.3 (81-99) fL MCH 26.4 L (28.0-34.0) pg MCHC 32.4 (30.0-36.0) g/dL RDW 17.7 H (12.1-15.1) % Plt Count 142 (130-400) 10^3/cmm MPV 10.2 (7.4-10.4) fL Neut % (Auto) 54.9 % Lymph % (Auto) 32.0 % [place] % (Auto) 11.1 % Eos % (Auto) 0.6 % Baso % (Auto) 0.9 % Neut # (Auto) 6.41 (1.8-7.7) 10^3/uL Lymph # (Auto) 3.7 (0.8-4.8) 10^3/uL [place] # (Auto) 1.3 H (0.2-0.9) 10^3/uL Eos # (Auto) 0.1 (0.0-0.8) 10^3/uL Baso # (Auto) 0.1 (0.0-0.1) 10^3/uL Nucleated RBC % (auto) 0 % Nucleated RBCs # 0.0 /100WBC PT 16.70 H (12.1-14.9) SECONDS INR 1.31 H (0.8-1.2) Fibrinogen 390 (174-498) mg/dL D-Dimer 1.95 H (0-0.59) ug/mIFEU Sodium 126 L (136-145) mmol/L Potassium 3.7 (3.5-5.1) mmol/L Chloride 96 L (98-107) mmol/L Carbon Dioxide 18 L (22-29) mmol/L Anion Gap 15.7 (5-19) BUN 9 (8-23) mg/dL Creatinine 0.6 (0.5-0.9) mg/dL GFR Calculation 100.3 (90-130) mL/min Glucose 189 H (65-115) mg/dL Calculated Osmolality 266 L (285-295) mOsm/kg Lactic Acid (0.5-2.2) mmol/L Lactic Acid (Sepsis) (0.5-2.2) mmol/L Calcium 8.9 (8.5-10.5) mg/dL Magnesium 1.3 L (1.7-2.3) mg/dL Ferritin 56 (15-150) ng/mL Total Bilirubin 0.8 (0.15-1.2) mg/dL AST 45 H (0-32) U/L ALT 29 (0-33) U/L Alkaline Phosphatase 98 (35-105) IU/L Lactate Dehydrogenase 206 (135-214) U/L Troponin T Baseline (0-10) ng/L Troponin T 120 Minute (0-10) ng/L Delta Troponin T (0-10) ABS# C-Reactive Protein 60.3 H (0.0-4.9) mg/L NT-Pro-B Natriuret Pep 190 H (0-125) pg/mL Total Protein 8.9 H (6.6-8.7) g/dL Albumin 3.1 L (3.5-5.2) g/dL Globulin 5.8 H (1.3-4.6) g/dL Procalcitonin 0.13 (0-0.5) ng/mL Influenza Type A Ag (Negative) Influenza Type B Ag (Negative) SARS-CoV-2 Ag (Rapid) (Negative) 04/12/20 04/12/20 04/12/20 Range/Units 14:30 14:30 14:35 WBC (4.0-10.0) 10^3/uL RBC (4.1-5.3) 10^6/uL Hgb (11.5-15.3) g/dL Hct (37.0-47.0) % MCV (81-99) fL MCH (28.0-34.0) pg MCHC (30.0-36.0) g/dL RDW (12.1-15.1) % Plt Count (130-400) 10^3/cmm MPV (7.4-10.4) fL Neut % (Auto) % Lymph % (Auto) % [place] % (Auto) % Eos % (Auto) % Baso % (Auto) % Neut # (Auto) (1.8-7.7) 10^3/uL Lymph # (Auto) (0.8-4.8) 10^3/uL [place] # (Auto) (0.2-0.9) 10^3/uL Eos # (Auto) (0.0-0.8) 10^3/uL Baso # (Auto) (0.0-0.1) 10^3/uL Nucleated RBC % (auto) % Nucleated RBCs # /100WBC PT (12.1-14.9) SECONDS INR (0.8-1.2) Fibrinogen (174-498) mg/dL D-Dimer (0-0.59) ug/mIFEU Sodium (136-145) mmol/L Potassium (3.5-5.1) mmol/L Chloride (98-107) mmol/L Carbon Dioxide (22-29) mmol/L Anion Gap (5-19) BUN (8-23) mg/dL Creatinine (0.5-0.9) mg/dL GFR Calculation (90-130) mL/min Glucose (65-115) mg/dL Calculated Osmolality (285-295) mOsm/kg Lactic Acid 2.6 H (0.5-2.2) mmol/L Lactic Acid (Sepsis) (0.5-2.2) mmol/L Calcium (8.5-10.5) mg/dL Magnesium (1.7-2.3) mg/dL Ferritin (15-150) ng/mL Total Bilirubin (0.15-1.2) mg/dL AST (0-32) U/L ALT (0-33) U/L Alkaline Phosphatase (35-105) IU/L Lactate Dehydrogenase (135-214) U/L Troponin T Baseline 6 (0-10) ng/L Troponin T 120 Minute (0-10) ng/L Delta Troponin T (0-10) ABS# C-Reactive Protein (0.0-4.9) mg/L NT-Pro-B Natriuret Pep (0-125) pg/mL Total Protein (6.6-8.7) g/dL Albumin (3.5-5.2) g/dL Globulin (1.3-4.6) g/dL Procalcitonin (0-0.5) ng/mL Influenza Type A Ag Negative (Negative) Influenza Type B Ag Negative (Negative) SARS-CoV-2 Ag (Rapid) (Negative) 04/12/20 04/12/20 04/12/20 Range/Units 14:35 16:50 16:50 WBC (4.0-10.0) 10^3/uL RBC (4.1-5.3) 10^6/uL Hgb (11.5-15.3) g/dL Hct (37.0-47.0) % MCV (81-99) fL MCH (28.0-34.0) pg MCHC (30.0-36.0) g/dL RDW (12.1-15.1) % Plt Count (130-400) 10^3/cmm MPV (7.4-10.4) fL Neut % (Auto) % Lymph % (Auto) % [place] % (Auto) % Eos % (Auto) % Baso % (Auto) % Neut # (Auto) (1.8-7.7) 10^3/uL Lymph # (Auto) (0.8-4.8) 10^3/uL [place] # (Auto) (0.2-0.9) 10^3/uL Eos # (Auto) (0.0-0.8) 10^3/uL Baso # (Auto) (0.0-0.1) 10^3/uL Nucleated RBC % (auto) % Nucleated RBCs # /100WBC PT (12.1-14.9) SECONDS INR (0.8-1.2) Fibrinogen (174-498) mg/dL D-Dimer (0-0.59) ug/mIFEU Sodium (136-145) mmol/L Potassium (3.5-5.1) mmol/L Chloride (98-107) mmol/L Carbon Dioxide (22-29) mmol/L Anion Gap (5-19) BUN (8-23) mg/dL Creatinine (0.5-0.9) mg/dL GFR Calculation (90-130) mL/min Glucose (65-115) mg/dL Calculated Osmolality (285-295) mOsm/kg Lactic Acid (0.5-2.2) mmol/L Lactic Acid (Sepsis) 1.2 (0.5-2.2) mmol/L Calcium (8.5-10.5) mg/dL Magnesium (1.7-2.3) mg/dL Ferritin (15-150) ng/mL Total Bilirubin (0.15-1.2) mg/dL AST (0-32) U/L ALT (0-33) U/L Alkaline Phosphatase (35-105) IU/L Lactate Dehydrogenase (135-214) U/L Troponin T Baseline (0-10) ng/L Troponin T 120 Minute 6.00 (0-10) ng/L Delta Troponin T 0 (0-10) ABS# C-Reactive Protein (0.0-4.9) mg/L NT-Pro-B Natriuret Pep (0-125) pg/mL Total Protein (6.6-8.7) g/dL Albumin (3.5-5.2) g/dL Globulin (1.3-4.6) g/dL Procalcitonin (0-0.5) ng/mL Influenza Type A Ag (Negative) Influenza Type B Ag (Negative) SARS-CoV-2 Ag (Rapid) Negative (Negative) COVID Results: SARS-CoV-2 Antigen (Rapid) Negative (Negative) 04/12/20 14:35 04/12/20 Discharge Plan Discharge Patient Disposition: Home Clinical Impression: Malaise Vomiting Qualifiers: Vomiting type: unspecified Vomiting Intractability: unspecified Nausea presence: unspecified Qualified Code(s): R11.10 - Vomiting, unspecified Condition: Stable Prescriptions: New ondansetron HCl 4 mg tablet 4 mg PO Q6H PRN (Reason: nausea and vomiting) Qty: 7 RF: 0 No Action spironolactone 25 mg tablet 12.5 mg PO DAILY 30 Days Qty: 30 RF: 6 isosorbide mononitrate 30 mg tablet extended release 24 hr 30 mg PO DAILY 90 Days Qty: 90 RF: 3 potassium chloride 10 mEq Tablet Extended Release 10 meq PO DAILY RF: 0 pantoprazole [Protonix] 40 mg Tablet,Delayed Release (Dr/Ec) 40 mg PO DAILY RF: 0 bumetanide 1 mg Tablet 1 mg PO DAILY RF: 0 fluticasone propionate [Flonase Allergy Relief] 50 mcg/actuation Douglas ,Suspension 2 spray INTRANASAL DAILY RF: 0 metformin 500 mg Tablet Extended Release 24 Hr 1,000 mg PO BID RF: 0 Premarin 1.25 mg Tablet 1.25 mg PO DAILY RF: 0 metoprolol tartrate 25 mg Tablet 25 mg PO BID RF: 0 aspirin [Aspir-81] 81 mg Tablet,Delayed Release (Dr/Ec) 81 mg PO DAILY RF: 0 loratadine 10 mg Tablet 10 mg PO DAILY RF: 0 Novolog Flexpen U-100 Insulin 100 unit/mL (3 mL) Insulin Pen See Rx Instructions .ROUTE .COMPLEX RF: 0 Levemir FlexTouch U-100 Insuln 100 unit/mL (3 mL) Insulin Pen 10 unit SUBCUT BID RF: 0 Effexor XR 150 mg capsule,extended release 24hr 150 mg PO DAILY RF: 0 atorvastatin 40 mg Tablet 20 mg PO DAILY Qty: 0 RF: 0 Medrol (Denis) 4 mg tablets,dose pack See Rx Instructions .ROUTE .COMPLEX Qty: 21 RF: 0 Advair Diskus 250-50 mcg/dose blister with device 1 inh INHALATION BID Qty: 60 RF: 0 albuterol sulfate 90 mcg/actuation HFA aerosol inhaler 2 inh INHALATION Q4H PRN (Reason: shortness of breath or wheezing) Qty: 18 RF: 0 Discharge Orders: Discharge Order (Routine); Ordered 04/12/20 Ordered By: Jazmin Roca Referrals: Rad Branham DO [Primary Care Provider] - Discharge Diet: Usual diet Discharge Activity: Resume usual activity Patient Instructions: Acute Nausea and Vomiting (ED) Activity Restrictions/Additional Instructions: Follow-up with your primary care doctor for your concerns regarding medication and your other symptoms. 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
[2020-04-12 15:48] LABS: NT Pro B Type Natriuretic Pept 190 pg/mL (0-125); Procalcitonin 0.13 ng/mL (0-0.5)
[2020-04-12 16:00] LABS: Alanine Aminotransferase 29 U/L (0-33); Albumin Level 3.1 g/dL (3.5-5.2); Alkaline Phosphatase 98 IU/L (35-105); Anion Gap 15.7 (5-19); Aspartate Amino Transferase 45 U/L (0-32); Blood Urea Nitrogen 9 mg/dL (8-23); C Reactive Protein 60.3 mg/L (0.0-4.9); Calcium 8.9 mg/dL (8.5-10.5); Carbon Dioxide 18 mmol/L (22-29); Chloride 96 mmol/L (98-107); Creatinine Clr Calc Pharmacy 68.9346; Ferritin 56 ng/mL (15-150); Globulin 5.8 g/dL (1.3-4.6); Glomerular Filtration Rate 100.3 mL/min (90-130); Glucose 189 mg/dL (65-115); Lactate Dehydrogenase 206 U/L (135-214); Magnesium 1.3 mg/dL (1.7-2.3); Osmolality Calculated 266 mOsm/kg (285-295); Potassium 3.7 mmol/L (3.5-5.1); Sodium 126 mmol/L (136-145); Total Bilirubin 0.8 mg/dL (0.15-1.2); Total Protein 8.9 g/dL (6.6-8.7)
--- NOTE | 2020-04-12 16:00 | ECG_ITS ---
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 Measurements Intervals [place] Rate: 70 P: 34 ME: 164 QRS: 24 QRSD: 89 T: 43 QT: 432 QTc: 469 Interpretive Statements SINUS RHYTHM LOW QRS VOLTAGE IN PRECORDIAL LEADS [QRS DEFLECTION < 1.0 mV IN CHEST LEADS] Compared to ECG 04/12/2020 14:24:49 Sinus arrhythmia no longer present ST (T wave) deviation no longer present Electronically Signed On 04-12-2020 16:32:45 CDT by Kylah Polk M.D. [id number]
[2020-04-12 16:32] LABS: Reflex Lactate Order REFLEX LACTIC ORDERD
--- NOTE | 2020-04-12 17:15 | CTR_ITS ---
PROCEDURE INFORMATION: Exam: CT Angiography Chest With Contrast Exam date and time: 04/12/2020 5:54 PM Age: 64 years old Clinical indication: Nausea and vomiting; Fever and shortness of breath; Prior surgery; Surgery type: Stents, gb, hyst, appy; Additional info: Vomiting, short of breath TECHNIQUE: Imaging protocol: Computed tomographic angiography of the chest with intravenous contrast. 3D rendering (Not supervised by radiologist): MIP and/or 3D reconstructed images were created by the technologist. Radiation optimization: All CT scans at this facility use at least one of these dose optimization techniques: automated exposure control; mA and/or kV adjustment per patient size (includes targeted exams where dose is matched to clinical indication); or iterative reconstruction. Contrast material: OMNI 350; Contrast volume: 95 ml; Contrast route: INTRAVENOUS (IV); COMPARISON: CT abdomen pelvis w con* [id number] 08/22/2019 6:02 AM RADIATION DOSE METRICS: Total DLP (mGy-cm): 1369.65 FINDINGS: Pulmonary arteries: No pulmonary emboli. Aorta: No aortic aneurysm. No aortic dissection. Lungs: Unremarkable. No consolidation. No masses. Pleural space: No pleural effusion. No pneumothorax. Heart: No cardiomegaly. No pericardial effusion. Coronary artery stent. Lymph nodes: No significant adenopathy. Bones/joints: No acute findings. Soft tissues: Unremarkable. IMPRESSION: No acute findings. PROCEDURE INFORMATION: Exam: CT Abdomen And Pelvis With Contrast Exam date and time: 04/12/2020 5:54 PM Age: 64 years old Clinical indication: Nausea and vomiting; Fever and shortness of breath; Prior surgery; Surgery type: Stents, gb, hyst, appy; Additional info: Vomiting, short of breath TECHNIQUE: Imaging protocol: Computed tomography of the abdomen and pelvis with intravenous contrast. Radiation optimization: All CT scans at this facility use at least one of these dose optimization techniques: automated exposure control; mA and/or kV adjustment per patient size (includes targeted exams where dose is matched to clinical indication); or iterative reconstruction. Contrast material: OMNI 350; Contrast volume: 95 ml; Contrast route: INTRAVENOUS (IV); COMPARISON: CT abdomen pelvis w con* [id number] 08/22/2019 6:02 AM RADIATION DOSE METRICS: Total DLP (mGy-cm): 1369.65 FINDINGS: Liver: No mass. Minimally nodular hepatic contour Gallbladder and bile ducts: Cholecystectomy. No biliary ductal dilatation. Pancreas: Normal. No ductal dilation. Spleen: Normal. No splenomegaly. Adrenals: Normal. No mass. Kidneys and ureters: Normal. No hydronephrosis. Stomach and bowel: No acute findings. No obstruction. No mucosal thickening. Underdistention of the stomach, gastric wall thickening cannot be excluded. Appendix: No evidence of appendicitis. Intraperitoneal space: No free fluid or pneumoperitoneum. Vasculature: No abdominal aortic aneurysm. Lymph nodes: No significant adenopathy. Urinary bladder: Unremarkable as visualized. Reproductive: Hysterectomy. Bones/joints: No acute findings. Soft tissues: Unremarkable. CT/CT angio chest abdomen pelvis IMPRESSION: No acute findings. Radiation Dose CTDIVOL = (mGy): DLP = 1369.65~1369.65 (mGy-cm)
[2020-04-12 17:34] LABS: Lactic Acid level (Lactate) 1.2 mmol/L (0.5-2.2)
[2020-04-12 17:56] LABS: Troponin 5 2HR Delta 0 ABS# (0-10)
[2020-04-12] MEDS: iohexol 350 mg/mL 100 mL Btl IV (18:49)
== END 2020-04-12 19:45 | disposition home or self-care (01) ==
PROVIDERS: Emergency Provider Emergency Medicine; PCP Internal Medicine
DX: R53.81 Other malaise (principal); R11.10 Vomiting, unspecified; Z79.82 Long term (current) use of aspirin; Z79.4 Long term (current) use of insulin; J44.9 Chronic obstructive pulmonary disease, unspecified; I25.10 Atherosclerotic heart disease of native coronary artery without angina pectoris; I11.0 Hypertensive heart disease with heart failure; I50.30 Unspecified diastolic (congestive) heart failure; E78.5 Hyperlipidemia, unspecified; E11.9 Type 2 diabetes mellitus without complications; F17.210 Nicotine dependence, cigarettes, uncomplicated
CPT/HCPCS: 12345; 71045; 71275; 74174; 80053; 82728; 83605; 83615; 83735; 83880; 84145; 84484; 85025; 85378; 85384; 85610; 86140; 87426; 87804; 93005; 99283; 99284; Q9967

== ENCOUNTER 2021-02-01 12:13 | Emergency (ER) | payer MEDICAID, SELFPAY ==
[2021-02-01 13:10] VITALS: BP 130/84; PULSE 60; RESP 16; TEMP 36.7; O2SAT 93; BMI 25.3
--- NOTE | 2021-02-01 14:58 | W.ED.NAVMDI ---
HPI - Nausea/Vomiting/Diarrhea General: Chief complaint: Nausea/Vomiting/Diarrhea Stated complaint: N/V Time Seen by Provider: 02/01/21 14:43 History of Present Illness: HPI Narrative: Patient arrived via ambulance today with complaint of vomiting. Patient says she just woke up this morning and vomited couple times and she felt really bad and fell back in her chair so she called the ambulance and she has been out here in waiting room about 3 hours and has been feeling better. MD elicited complaint: nausea and vomiting Description of vomiting: food contents Associated nausea: Yes Location of pain: None Associated symtoms: Reports no associated symptoms and nausea; Denies anxiety, change in vision, chest pain or headache(s) Review of Systems Const: Denies: fever(s), chills or body aches Eyes: Denies: change in vision or blurry vision ENMT: Denies: throat pain or nasal congestion Card: Denies: chest pain or dyspnea on exertion Resp: Denies: dyspnea, productive cough or non-productive cough GI: Reports: nausea and vomiting; Denies: abdominal pain Musc: Denies: extremity pain Skin/Breast: Denies: rash Neuro: Denies: headache(s) Psych: Denies: anxiety or depression Aj/Lymph: Denies: easy bruising PFSH ED PFSH: Medical History (Updated 02/01/21 @ 16:29 by JOCELYNE Solomon) COPD (chronic obstructive pulmonary disease) Coronary artery disease Depression with anxiety Diastolic heart failure Essential hypertension Hyperlipidemia Hypertension Hypothyroidism Type 2 diabetes mellitus Surgical History History of appendectomy History of cholecystectomy History of hysterectomy History of uvulopalatopharyngoplasty S/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) with 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 placement Family History Other CAD (coronary artery disease) Social History Smoking and tobacco status: current every day smoker Alcohol intake: never History of recent travel: No Physical Exam Const: COMMON NORMALS: no acute distress, average body habitus and patient oriented x3 HENMT: COMMON NORMALS: normocephalic HEAD & SCALP: normal to inspection and normocephalic FACE & SINUS: normal facial exam Eye: COMMON NORMALS: conjunctivae normal GENERAL EYE: appearance normal, both eyes and all related structures CONJUNCTIVA: Yes conjunctivae normal Neck/C-Spine: COMMON NORMALS: no JVD Chest: COMMONS NORMALS: normal inspection of the chest Resp: COMMON NORMALS: normal respiratory effort and clear to auscultation bilaterally AUSCULTATION: clear to auscultation bilaterally Cardio: COMMON NORMALS: no JVD, regular rate and regular rhythm RATE: regular rate RHYTHM: regular rhythm GI: COMMON NORMALS: Normal to inspection, nondistended, normoactive bowel sounds present Extremity: COMMON NORMALS: normal to inspection and full ROM Neuro: COMMON NORMALS: patient oriented x3 Course Vital Signs: Vital signs: Vital Signs Temperature 98.1 F 02/01/21 13:10 Pulse Rate 70 02/01/21 16:50 Respiratory Rate 18 02/01/21 16:50 Blood Pressure 135/70 02/01/21 16:50 Pulse Oximetry 98 02/01/21 16:50 MDM - Nausea/Vomiting/Diarrhea MDM Narrative: Medical decision making narrative: Patient's labs appeared normal except for slightly elevated sugar. Patient did not have any episode of nausea and vomiting while here in the ER. Patient tolerated her stay very well. Patient appears to have stomach bug. Patient encouraged to follow-up with primary care provider if disc happens again. Take medication as directed. Lab Data: Labs: Lab Results 02/01/21 02/01/21 02/01/21 Range/Units 14:47 15:11 15:11 WBC 8.4 (4.0-10.0) 10^3/ uL RBC 4.85 (4.1-5.3) 10^6/u L Hgb 14.3 (11.5-15.3) g/dL Hct 42.0 (37.0-47.0) % MCV 86.6 (81-99) fL MCH 29.5 (28.0-34.0) pg MCHC 34.0 (30.0-36.0) g/dL RDW 12.2 (12.1-15.1) % Plt Count 119 L (130-400) 10^3/c mm MPV 12.0 H (7.4-10.4) fL Neut % (Auto) 43.9 % Lymph % (Auto) 40.9 % Forrest % (Auto) 10.6 % Eos % (Auto) 3.0 % Baso % (Auto) 1.1 % Neut # (Auto) 3.68 (1.8-7.7) 10^3/u L Lymph # (Auto) 3.4 (0.8-4.8) 10^3/u L [place] # (Auto) 0.9 (0.2-0.9) 10^3/u L Eos # (Auto) 0.3 (0.0-0.8) 10^3/u L Baso # (Auto) 0.1 (0.0-0.1) 10^3/u L Nucleated RBC % (a uto) 0 % Nucleated RBCs # 0.0 /100WBC Sodium 134 L (136-145) mmol/L Potassium 3.7 (3.5-5.1) mmol/L Chloride 103 (98-107) mmol/L Carbon Dioxide 20 L (22-29) mmol/L Anion Gap 14.7 (5-19) BUN 13 (8-23) mg/dL Creatinine 0.5 (0.5-0.9) mg/dL GFR Calculation 123.4 (90-130) mL/min Glucose 244 H (65-115) mg/dL Calculated Osmolal ity 286 (285-295) mOsm/k g Calcium 9.2 (8.5-10.5) mg/dL Total Bilirubin 0.7 (0.15-1.2) mg/dL AST 39 H (0-32) U/L ALT 34 H (0-33) U/L Alkaline Phosphata se 91 (35-105) IU/L Total Protein 9.1 H (6.6-8.7) g/dL Albumin 3.9 (3.5-5.2) g/dL Globulin 5.2 H (1.3-4.6) g/dL Lipase 43 (13-60) U/L Urine Color Yellow (Yellow) Urine Appearance Clear (CLEAR) Urine pH 6 (5-7) Ur Specific Gravit y 1.005 (1.005-1.030) Urine Protein Neg (Negative) Urine Glucose (UA) Norm (Normal) Urine Ketones Negative (Negative) Urine Blood Neg (Negative) Urine Nitrate Negative (Negative) Urine Bilirubin Neg (Negative) Urine Urobilinogen Norm (Negative) mg/dL Ur Leukocyte Liset ase Negative (Negative) Discharge Plan Discharge Patient Disposition: Home Clinical Impression: Gastroenteritis Condition: Stable Prescriptions: New Zofran 4 mg tablet 4 mg PO Q8H 3 Days Qty: 9 RF: 0 No Action levothyroxine 200 mcg tablet 200 mcg PO DAILY RF: 0 aspirin 325 mg tablet 325 mg PO DAILY RF: 0 trazodone 100 mg tablet 100 mg PO DAILY RF: 0 ferrous sulfate 325 mg (65 mg iron) tablet 325 mg PO DAILY RF: 0 atorvastatin 40 mg tablet 40 mg PO DAILY RF: 0 spironolactone 25 mg tablet 12.5 mg PO DAILY 30 Days Qty: 30 RF: 6 isosorbide mononitrate 30 mg tablet extended release 24 hr 30 mg PO DAILY 90 Days Qty: 90 RF: 3 potassium chloride 10 mEq Tablet Extended Release 10 meq PO DAILY RF: 0 pantoprazole [Protonix] 40 mg Tablet,Delayed Release (Dr/Ec) 40 mg PO DAILY RF: 0 fluticasone propionate [Flonase Allergy Relief] 50 mcg/actuation [place],Suspension 2 spray INTRANASAL DAILY RF: 0 loratadine 10 mg Tablet 10 mg PO DAILY RF: 0 Levemir FlexTouch U-100 Insuln 100 unit/mL (3 mL) Insulin Pen 10 unit SUBCUT BID RF: 0 Effexor XR 150 mg capsule,extended release 24hr 150 mg PO DAILY RF: 0 Advair Diskus 250-50 mcg/dose blister with device 1 inh INHALATION BID Qty: 60 RF: 0 albuterol sulfate 90 mcg/actuation HFA aerosol inhaler 2 inh INHALATION Q4H PRN (Reason: shortness of breath or wheezing) Qty: 18 RF: 0 Discharge Orders: Discharge ED (Routine); Ordered 02/01/21 Ordered By: Issac Portillo Referrals: Rad Branham DO [Primary Care Provider] - Discharge Diet: Advance as tolerated Discharge Activity: Resume usual activity Activity Restrictions/Additional Instructions: Follow-up with medical provider as directed. Take medications as prescribed. Return to the ER or your medical provider if condition worsens. Please read and understand discharge instructions. If any questions ask please. Coding Level of Care Code ED Tire Technician for Jeff Fwd Exam Comprehensive
[2021-02-01 15:20] LABS: Add Urine Microscopic? NO; Charge for UA Resulting for Rev
[2021-02-01 15:32] LABS: Bilirubin Urine Neg (Negative); Blood Urine Neg (Negative); Glucose Urine UA Norm (Normal); Ketones Urine Negative (Negative); Leukocyte Esterase Urine Negative (Negative); Nitrate Urine Negative (Negative); Protein Urine Neg (Negative); Specific Gravity, Urine 1.005 (1.005-1.030); Urine Appearance Clear (CLEAR); Urine Color Yellow (Yellow); Urobilinogen Urine Norm (Negative); pH Urine 6 (5-7)
[2021-02-01 15:34] LABS: Basophils # 0.1 10^3/uL (0.0-0.1); Basophils % 1.1 %; Eosinophils # 0.3 10^3/uL (0.0-0.8); Hemoglobin 14.3 g/dL (11.5-15.3); Lymphocytes # 3.4 10^3/uL (0.8-4.8); Lymphocytes % 40.9 %; Mean Corpuscular Hemoglobin 29.5 pg (28.0-34.0); Mean Corpuscular Volume 86.6 fL (81-99); Monocytes # 0.9 10^3/uL (0.2-0.9); Monocytes % 10.6 %; Neutrophils # 3.68 10^3/uL (1.8-7.7); Neutrophils % 43.9 %; Nucleated Red Blood Cells % 0 %; Platelet Count 119 10^3/cmm (130-400); Red Blood Count 4.85 10^6/uL (4.1-5.3); Red Cell Distribution Width 12.2 % (12.1-15.1); White Blood Count 8.4 10^3/uL (4.0-10.0)
[2021-02-01 15:54] LABS: Alanine Aminotransferase 34 U/L (0-33); Albumin Level 3.9 g/dL (3.5-5.2); Alkaline Phosphatase 91 IU/L (35-105); Anion Gap 14.7 (5-19); Aspartate Amino Transferase 39 U/L (0-32); Blood Urea Nitrogen 13 mg/dL (8-23); Calcium 9.2 mg/dL (8.5-10.5); Carbon Dioxide 20 mmol/L (22-29); Chloride 103 mmol/L (98-107); Creatinine Clr Calc Pharmacy 62.6659; Globulin 5.2 g/dL (1.3-4.6); Glomerular Filtration Rate 123.4 mL/min (90-130); Glucose 244 mg/dL (65-115); Lipase 43 U/L (13-60); Osmolality Calculated 286 mOsm/kg (285-295); Potassium 3.7 mmol/L (3.5-5.1); Sodium 134 mmol/L (136-145); Total Bilirubin 0.7 mg/dL (0.15-1.2); Total Protein 9.1 g/dL (6.6-8.7)
[2021-02-01] MEDS: ondansetron 2 mg/ML SDV 2 mL 4 MG IVP (16:38)
[2021-02-01] MEDS: sodium chloride 0.9% 500 ML IV (16:38)
[2021-02-01 16:50] VITALS: BP 135/70; PULSE 70; RESP 18; O2SAT 98
== END 2021-02-01 16:52 | disposition home or self-care (01) ==
PROVIDERS: Emergency Provider Nurse Practitioner Family; PCP Internal Medicine
DX: K52.9 Noninfective gastroenteritis and colitis, unspecified (principal); J44.9 Chronic obstructive pulmonary disease, unspecified; I25.10 Atherosclerotic heart disease of native coronary artery without angina pectoris; I11.0 Hypertensive heart disease with heart failure; I50.30 Unspecified diastolic (congestive) heart failure; E78.5 Hyperlipidemia, unspecified; E03.9 Hypothyroidism, unspecified; E11.9 Type 2 diabetes mellitus without complications; F17.200 Nicotine dependence, unspecified, uncomplicated; Z79.82 Long term (current) use of aspirin
CPT/HCPCS: 80053; 81003; 83690; 85025; 96361; 96374; 99283; J2405; J7040

== ENCOUNTER → 2021-04-14 02:35 | Outpatient (BNVA) | payer MEDICAID, SELFPAY | PROVIDERS: Visit Provider Family Medicine | DX: I10 Essential (primary) hypertension (principal); E11.9 Type 2 diabetes mellitus without complications; E03.9 Hypothyroidism, unspecified; E78.5 Hyperlipidemia, unspecified | CPT/HCPCS: 80053; 80061; 82043; 83036; 84443; 85025 ==

== ENCOUNTER 2021-07-25 19:54 | Emergency (ER) | payer MEDICARE, MEDICAID, SELFPAY ==
[2021-07-25 20:18] LABS: Basophils # 0.1 10^3/uL (0.0-0.1); Basophils % 0.9 %; Eosinophils # 0.3 10^3/uL (0.0-0.8); Eosinophils % 3.4 %; Hematocrit 40.2 % (37.0-47.0); Hemoglobin 13.1 g/dL (11.5-15.3); Lymphocytes # 2.6 10^3/uL (0.8-4.8); Lymphocytes % 32.9 %; Mean Corpuscular HGB Conc 32.6 g/dL (30.0-36.0); Mean Corpuscular Hemoglobin 28.8 pg (28.0-34.0); Mean Corpuscular Volume 88.4 fl (81-99); Mean Platelet Volume 12.8 fL (7.4-10.4); Monocytes # 0.8 10^3/uL (0.2-0.9); Monocytes % 9.4 %; Neutrophils # 4.24 10^3/uL (1.8-7.7); Neutrophils % 53.1 %; Nucleated Red Blood Cells % 0 %; Platelet Count 72 10^3/cmm (130-400); Red Blood Count 4.55 10^6/uL (4.1-5.3); Red Cell Distribution Width 13.2 % (12.1-15.1)
[2021-07-25 20:21] VITALS: BP 150/84; PULSE 66; RESP 16; TEMP 36.6; O2SAT 94
[2021-07-25 20:45] LABS: Alanine Aminotransferase 30 U/L (0-33); Albumin Level 3.5 g/dL (3.5-5.2); Alkaline Phosphatase 130 IU/L (35-105); Anion Gap 14.2 (5-19); Aspartate Amino Transferase 52 U/L (0-32); Blood Urea Nitrogen 15 mg/dL (8-23); Calcium 8.5 mg/dL (8.5-10.5); Carbon Dioxide 19 mmol/L (22-29); Chloride 103 mmol/L (98-107); Creatinine Clr Calc Pharmacy 62.0714; Globulin 5.3 g/dL (1.3-4.6); Glomerular Filtration Rate 123.4 mL/min (90-130); Glucose 159 mg/dL (65-115); Osmolality Calculated 278 mOsm/kg (285-295); Potassium 4.2 mmol/L (3.5-5.1); Sodium 132 mmol/L (136-145); Total Bilirubin 0.5 mg/dL (0.15-1.2); Total Protein 8.8 g/dL (6.6-8.7)
--- NOTE | 2021-07-26 01:48 | XRR_ITS ---
PROCEDURE INFORMATION: Exam: XR Chest Exam date and time: 07/26/2021 1:48 AM Age: 65 years old Clinical indication: Shortness of breath; Prior surgery; Surgery type: Coronary stent. ; Patient HX: C/O SOB TECHNIQUE: Imaging protocol: XR of the chest. Views: 1 view. COMPARISON: CR XR chest 1V portable [id number] 04/12/2020 2:00 PM FINDINGS: Lungs: No consolidation. Pleural spaces: Unremarkable. No pleural effusion. No pneumothorax. Heart/Mediastinum: No cardiomegaly. Bones/joints: No acute fracture. XR/XR chest 1V portable [id number] IMPRESSION: No acute findings.
--- NOTE | 2021-07-26 01:50 | ED_ITS ---
HPI - COVID General: Chief Complaint: COVID symptoms Stated Complaint: NOT FEELING WELL X 3 WEEKS Time Seen by Provider: 07/26/21 01:45 Source: patient Mode of arrival: ambulatory Limitations: no limitations Triage information: Has fever, cough or shortness of breath . Exposure to COVID + person last 14 days History of Present Illness: 65-year-old female who states that over the last 2 weeks she has just been feeling ill with the pain worsened last week states she has had low-grade fevers body aches malaise and fatigue. States she is also had some nausea vomiting slight cough and dyspnea. She states she is concerned she may have Covid she has been exposed. She is in no distress here she is not hypoxic. Denies any abdominal pain states she has had some flank pain bilaterally. Denies any worsening improving factors. COVID 19 common symptoms: positive fever(s), chills, nausea and vomiting; negative dyspnea, headache(s) or throat pain COVID 19 other sytmptoms: negative chest pain COVID Results: SARS-CoV-2 Antigen (Rapid) Negative (Negative) 04/12/20 14:35 04/12/20 SARS-CoV-2 RNA (RT-PCR) Pending 07/26/21 01:55 07/26/21 Review of Systems Const: Reports: fever(s), chills and malaise Eyes: Denies: blurry vision or eye discomfort ENMT: Denies: throat pain or dental pain Card: Denies: chest pain Resp: Denies: dyspnea GI: Reports: nausea and vomiting : Denies: dysuria Musc: Denies: neck pain or back pain Skin/Breast: Denies: rash Neuro: Denies: headache(s) Psych: Denies: depression Aj/Lymph: Denies: easy bruising All/Imm: Denies: urticaria PFSH ED PFSH: Medical History COPD (chronic obstructive pulmonary disease) Coronary artery disease Depression with anxiety Diastolic heart failure Essential hypertension Hyperlipidemia Hypertension Hypothyroidism Type 2 diabetes mellitus Surgical History History of appendectomy History of cholecystectomy History of hysterectomy History of uvulopalatopharyngoplasty 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 Family History Other CAD (coronary artery disease) Social History Second hand smoke exposure: Yes Alcohol intake: never Adopted: No Caregiver/support person: Yes Lives independently: Yes Household members: none Housing: Apartment Marital status: Number of children: 5 Highest education level completed: Associate Degree: Academic Program service: No Current occupational status: retired and disabled Pets and animals: Yes Pets & animals: cat(s) History of recent travel: Yes Out of state: Yes Out of country: No Sexually active: No Current gender identity: Female 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 [employer] Physical Exam Const: COMMON NORMALS: no acute distress, patient oriented x3 and healthy appearing HENMT: COMMON NORMALS: normocephalic and atraumatic HEAD & SCALP: normocephalic and atraumatic Eye: COMMON NORMALS: Equal, round and reactive pupils present and EOMs intact bilaterally PUPIL: Yes Equal, round and reactive pupils present Neck/C-Spine: COMMON NORMALS: full ROM and supple Chest: COMMONS NORMALS: normal inspection of the chest and normal palpation of entire chest wall Resp: COMMON NORMALS: normal respiratory effort, No retractions, No use of accessory muscles and clear to auscultation bilaterally AUSCULTATION: clear to auscultation bilaterally Cardio: COMMON NORMALS: regular rate, regular rhythm and No murmurs present (Cardio) RATE: regular rate RHYTHM: regular rhythm GI: COMMON NORMALS: Normal to inspection, nondistended, normoactive bowel sounds present, Soft to palpation, non-tender and no masses PALPATION: Yes Soft to palpation Extremity: COMMON NORMALS: normal to inspection and full ROM Neuro: COMMON NORMALS: patient oriented x3, moves all extremities and no focal motor deficits Psych: COMMON NORMALS: mental status grossly normal, Normal thought process present and cooperative THOUGHT PROCESS: Normal thought process present Skin: COMMON NORMALS: no rashes or lesions noted and no wounds GENERAL SKIN EXAM: no rashes or lesions noted Course Vital Signs: Vital signs: Vital Signs Temperature 98.4 F 07/26/21 02:11 Pulse Rate 65 07/26/21 02:11 Respiratory Rate 16 07/26/21 02:11 Blood Pressure 136/74 07/26/21 02:11 Pulse Oximetry 96 07/26/21 02:11 MDM - COVID Medical Decision Making Patient presents here with vomiting along with some dyspnea and cough. Patient's chest x-ray here is normal blood works normal as well symptoms are consistent with likely Covid. Covid swab sent off she is to follow-up with PCP and return if worsening. Lab Data : 07/25/21 20:12 07/25/21 20:12 Laboratory Results WBC 8.0 10^3/uL (4.0-10.0) 07/25/21 20:12 RBC 4.55 10^6/uL (4.1-5.3) 07/25/21 20:12 Hgb 13.1 g/dL (11.5-15.3) 07/25/21 20:12 Hct 40.2 % (37.0-47.0) 07/25/21 20:12 MCV 88.4 fl (81-99) 07/25/21 20:12 MCH 28.8 pg (28.0-34.0) 07/25/21 20:12 MCHC 32.6 g/dL (30.0-36.0) 07/25/21 20:12 RDW 13.2 % (12.1-15.1) 07/25/21 20:12 Plt Count 72 10^3/cmm (130-400) L 07/25/21 20:12 MPV 12.8 fL (7.4-10.4) H 07/25/21 20:12 Neut % (Auto) 53.1 % 07/25/21 20:12 Lymph % (Auto) 32.9 % 07/25/21 20:12 Rab[place] % (Auto) 9.4 % 07/25/21 20:12 Eos % (Auto) 3.4 % 07/25/21 20:12 Baso % (Auto) 0.9 % 07/25/21 20:12 Neut # (Auto) 4.24 10^3/uL (1.8-7.7) 07/25/21 20:12 Lymph # (Auto) 2.6 10^3/uL (0.8-4.8) 07/25/21 20:12 [place] # (Auto) 0.8 10^3/uL (0.2-0.9) 07/25/21 20:12 Eos # (Auto) 0.3 10^3/uL (0.0-0.8) 07/25/21 20:12 Baso # (Auto) 0.1 10^3/uL (0.0-0.1) 07/25/21 20:12 Nucleated RBC % (auto) 0 % 07/25/21 20:12 Nucleated RBCs # 0.0 /100WBC 07/25/21 20:12 Sodium 132 mmol/L (136-145) L 07/25/21 20:12 Potassium 4.2 mmol/L (3.5-5.1) 07/25/21 20:12 Chloride 103 mmol/L (98-107) 07/25/21 20:12 Carbon Dioxide 19 mmol/L (22-29) L 07/25/21 20:12 Anion Gap 14.2 (5-19) 07/25/21 20:12 BUN 15 mg/dL (8-23) 07/25/21 20:12 Creatinine 0.5 mg/dL (0.5-0.9) 07/25/21 20:12 GFR Calculation 123.4 mL/min (90-130) 07/25/21 20:12 Glucose 159 mg/dL (65-115) H 07/25/21 20:12 Calculated Osmolality 278 mOsm/kg (285-295) L 07/25/21 20:12 Calcium 8.5 mg/dL (8.5-10.5) 07/25/21 20:12 Total Bilirubin 0.5 mg/dL (0.15-1.2) 07/25/21 20:12 AST 52 U/L (0-32) H 07/25/21 20:12 ALT 30 U/L (0-33) 07/25/21 20:12 Alkaline Phosphatase 130 IU/L (35-105) H 07/25/21 20:12 Total Protein 8.8 g/dL (6.6-8.7) H 07/25/21 20:12 Albumin 3.5 g/dL (3.5-5.2) 07/25/21 20:12 Globulin 5.3 g/dL (1.3-4.6) H 07/25/21 20:12 Urine Color Yellow (Yellow) 07/26/21 01:50 Urine Appearance Clear (CLEAR) 07/26/21 01:50 Urine pH 5 (5-7) 07/26/21 01:50 Ur Specific [place] 1.010 (1.005-1.030) 07/26/21 01:50 Urine Protein Neg (Negative) 07/26/21 01:50 Urine Glucose (UA) Norm (Normal) 07/26/21 01:50 Urine Ketones Negative (Negative) 07/26/21 01:50 Urine Blood Neg (Negative) 07/26/21 01:50 Urine Nitrate Negative (Negative) 07/26/21 01:50 Urine Bilirubin Neg (Negative) 07/26/21 01:50 Urine Urobilinogen Norm mg/dL (Negative) 07/26/21 01:50 Ur Leukocyte Esterase Negative (Negative) 07/26/21 01:50 SARS-CoV-2 Antigen (Rapid) Negative (Negative) 04/12/20 14:35 04/12/20 SARS-CoV-2 RNA (RT-PCR) Pending 07/26/21 01:55 07/26/21 Discharge Plan Discharge Patient Disposition: Home Clinical Impression: Suspected severe acute respiratory syndrome coronavirus 2 (SARS-CoV-2) infection, Pneumonia, Vomiting Condition: Stable Prescriptions: New ondansetron 4 mg tablet,disintegrating 4 mg PO Q6H PRN (Reason: nausea and vomiting) Qty: 14 0RF No Action levothyroxine 200 mcg tablet 200 mcg PO DAILY 0RF aspirin 81 mg tablet,delayed release (DR/EC) 81 mg PO DAILY 0RF folicall 2 cap PO DAILY 0RF insulin lispro [Humalog KwikPen Insulin] 100 unit/mL insulin pen 10 unit SUBCUT TID 0RF (DME) FreeStyle Test Strip See Rx Instructions .Route 0RF Rx Instructions: As directed (DME) insulin needles (disposable) 30 X 3/4 needle See Rx Instructions .Route 0RF Rx Instructions: As directed (DME) FreeStyle Rox 14 Day Sensor Kit See Rx Instructions .Route 0RF Rx Instructions: As directed (DME) blood-glucose meter [FreeStyle [place] Lite] Kit See Rx Instructions .Route Qty: 1 0RF Rx Instructions: As directed (DME) pen needle, diabetic [TechLITE Pen Needle] 31 gauge x 3/16 needle See Rx Instructions .Route Qty: 120 11RF Rx Instructions: uses 4 times daily with insulin 30 day supply pantoprazole [Protonix] 40 mg tablet,delayed release (DR/EC) 40 mg PO DAILY Qty: 90 3RF atorvastatin 40 mg tablet 40 mg PO DAILY Qty: 90 3RF spironolactone 25 mg tablet 12.5 mg PO DAILY Qty: 90 3RF isosorbide mononitrate 30 mg tablet extended release 24 hr 30 mg PO DAILY 90 Days Qty: 90 3RF Tresiba FlexTouch U-200 200 unit/mL (3 mL) insulin pen 35 unit SUBCUT DAILY Qty: 9 0RF tramadol 50 mg tablet 50 mg PO .po q hs Qty: 7 0RF trazodone 100 mg tablet See Rx Instructions .ROUTE .COMPLEX Qty: 30 2RF Dose Instruction: TAKE 1 TABLET BY MOUTH AT BEDTIME Rx Instructions: TAKE 1 TABLET BY MOUTH AT BEDTIME potassium chloride 10 mEq capsule, extended release See Rx Instructions .ROUTE .COMPLEX Qty: 30 6RF Dose Instruction: TAKE 1 CAPSULE BY MOUTH EVERY DAY Rx Instructions: TAKE 1 CAPSULE BY MOUTH EVERY DAY fluticasone propionate [Flonase Allergy Relief] 50 mcg/actuation [place],Suspension 2 spray INTRANASAL DAILY 0RF Effexor XR 150 mg capsule,extended release 24hr 150 mg PO DAILY 0RF Rx Instructions: pt states she takes the full tablet not 1/2 tab Advair Diskus 250-50 mcg/dose blister with device 1 inh INHALATION BID Qty: 60 0RF albuterol sulfate 90 mcg/actuation HFA aerosol inhaler 2 inh INHALATION Q4H PRN (Reason: shortness of breath or wheezing) Qty: 18 0RF Discharge Orders: Discharge ED (Routine); Ordered 07/26/21 Ordered By: Maxwell Barnes Referrals: Sara Montenegro DO [Primary Care Provider] - 1-3 days Discharge Activity: Resume usual activity Patient Instructions: COVID-19 (Coronavirus Disease 2019) (ED) Coding Level of Care Code ED Decontamination Worker for Zeusg Fwd Exam Comprehensive
[2021-07-26 02:06] LABS: Add Urine Microscopic? NO; Charge for UA Resulting for Rev
[2021-07-26] MEDS: sodium chloride 0.9% 1,000 ML 999 ML IV (02:09)
[2021-07-26] MEDS: ondansetron 2 mg/ML SDV 2 mL 4 MG IVP (02:09)
[2021-07-26 02:11] VITALS: BP 136/74; PULSE 65; RESP 16; TEMP 36.9; O2SAT 96
[2021-07-26 02:11] LABS: Bilirubin Urine Neg (Negative); Blood Urine Neg (Negative); Glucose Urine UA Norm (Normal); Ketones Urine Negative (Negative); Leukocyte Esterase Urine Negative (Negative); Nitrate Urine Negative (Negative); Protein Urine Neg (Negative); Urine Appearance Clear (CLEAR); Urine Color Yellow (Yellow); Urobilinogen Urine Norm (Negative); pH Urine 5 (5-7)
[2021-07-26] MEDS: dexamethasone 10 mg/mL INJ IVP (02:47)
[2021-07-26 03:15] VITALS: BP 159/80; PULSE 75; RESP 16; TEMP 36.9; O2SAT 99
[2021-07-29 11:06] LABS: Quest SARS-CoV-2 RNA NOT DETECTED (NOT DETECTED)
--- NOTE | 2021-07-29 16:56 | PC.NURSE ---
Notified pt of Negative COVID test
== END 2021-07-26 03:36 | disposition home or self-care (01) ==
PROVIDERS: Nurse Practitioner Family; Emergency Provider Emergency Medicine; PCP Family Medicine
DX: J44.0 Chronic obstructive pulmonary disease with (acute) lower respiratory infection (principal); J18.9 Pneumonia, unspecified organism; Z20.822 Contact with and (suspected) exposure to COVID-19; R11.11 Vomiting without nausea; Z79.82 Long term (current) use of aspirin; Z79.4 Long term (current) use of insulin; I25.10 Atherosclerotic heart disease of native coronary artery without angina pectoris; I11.0 Hypertensive heart disease with heart failure; I50.30 Unspecified diastolic (congestive) heart failure; E78.5 Hyperlipidemia, unspecified; E11.9 Type 2 diabetes mellitus without complications; Z77.22 Contact with and (suspected) exposure to environmental tobacco smoke (acute) (chronic)
CPT/HCPCS: 71045; 80053; 81003; 85025; 87635; 96361; 96374; 96375; 99283; J1100; J2405; J7030

== ENCOUNTER → 2021-10-09 11:43 | Outpatient (BNVA) | payer MEDICAID, SELFPAY | PROVIDERS: PCP Family Medicine; Visit Provider Family Medicine | DX: E11.9 Type 2 diabetes mellitus without complications (principal); M25.551 Pain in right hip; G89.29 Other chronic pain | CPT/HCPCS: 80053; 83036; 85025 ==

== ENCOUNTER 2021-10-19 11:57 | Outpatient (CLI) | payer MEDICARE, MEDICAID, SELFPAY ==
--- NOTE | 2021-10-19 12:13 | XRR_ITS ---
PROCEDURE INFORMATION: Exam: XR Right Hip Exam date and time: 10/19/2021 12:29 PM Age: 66 years old Clinical indication: Hip pain; Patient HX: History--history--pain in right shoulder and right hip; Additional info: Chronic hip pain TECHNIQUE: Imaging protocol: XR Right hip. Views: 1 view hip with pelvis when performed. COMPARISON: CT abdomen pelvis w con* [id number] 08/22/2019 6:02 AM FINDINGS: Bones/joints: Unremarkable. No acute fracture. Soft tissues: Unremarkable. XR/XR hip RT 2-3V wo/w pel* [id number] IMPRESSION: No acute findings.
--- NOTE | 2021-10-19 12:13 | XR_ITS ---
WS: [id number] RIGHT SHOULDER: 3 VIEW(S) TECHNIQUE: Internal and external rotation with Y view. HISTORY: chronic right shoulder pain COMPARISON: None available. No fracture or dislocation or soft tissue abnormality. Mild narrowing of the AC joint. Very minimal degenerative changes. No destructive bone lesions. XR/XR shoulder RT min 2V* [id number] IMPRESSION: Mild AC joint arthritis.
== END 2021-10-19 11:58 | disposition home or self-care (01) ==
PROVIDERS: PCP Family Medicine; Visit Provider Family Medicine
DX: G89.29 Other chronic pain (principal); M25.551 Pain in right hip; M19.011 Primary osteoarthritis, right shoulder
CPT/HCPCS: 73030; 73502

== ENCOUNTER 2021-10-20 19:26 | Observation (INO) | payer MEDICARE, MEDICAID, SELFPAY ==
[2021-10-20] VITALS (9 sets, daily range): BP systolic 111–161; BP diastolic 64–91; PULSE 58–82; RESP 16–21; TEMP 36.1; O2SAT 92–100; BMI 27.4; BMI 29.3
--- NOTE | 2021-10-20 19:54 | CTR_ITS ---
PROCEDURE INFORMATION: Exam: CT Head Without Contrast Exam date and time: 10/20/2021 8:24 PM Age: 66 years old Clinical indication: Patient HX: C/O n/v and weakness; Additional info: AMS TECHNIQUE: Imaging protocol: Computed tomography of the head without contrast. Radiation optimization: All CT scans at this facility use at least one of these dose optimization techniques: automated exposure control; mA and/or kV adjustment per patient size (includes targeted exams where dose is matched to clinical indication); or iterative reconstruction. COMPARISON: CT head wo con* [id number] 07/15/2019 11:31 AM RADIATION DOSE METRICS: Total DLP (mGy-cm): 815.6 FINDINGS: Brain: There is volume loss and periventricular low density compatible with chronic small vessel disease changes. There is no acute hemorrhage, edema or mass effect. Cerebral ventricles: There is unchanged ventriculomegaly compatible with ex vacuo type changes. Paranasal sinuses: Visualized sinuses are unremarkable. No fluid levels. Mastoid air cells: Visualized mastoid air cells are well aerated. Bones/joints: Unremarkable. No acute fracture. Soft tissues: Unremarkable. CT/CT head wo con* [id number] IMPRESSION: No acute intracranial abnormality.
--- NOTE | 2021-10-20 19:54 | XRR_ITS ---
PROCEDURE INFORMATION: Exam: XR Chest Exam date and time: 10/20/2021 8:18 PM Age: 66 years old Clinical indication: Patient HX: C/O n/v and weakness; Additional info: AMS TECHNIQUE: Imaging protocol: XR of the chest. Views: 1 view. COMPARISON: CR XR chest 1V portable [id number] 07/26/2021 2:00 AM FINDINGS: Lungs: Unremarkable. No consolidation. Pleural spaces: Unremarkable. No pleural effusion. No pneumothorax. Heart/Mediastinum: Unremarkable. No cardiomegaly. Bones/joints: No acute abnormality. XR/XR chest 1V portable [id number] IMPRESSION: No acute findings.
--- NOTE | 2021-10-20 19:57 | ECG_ITS ---
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 Measurements Intervals [place] Rate: 56 P: -6 [place]: 170 QRS: 10 QRSD: 100 T: 22 QT: 468 QTc: 455 Interpretive Statements SINUS BRADYCARDIA Compared to ECG 04/12/2020 15:49:46 Sinus rhythm no longer present Electronically Signed On 10-20-2021 20:18:20 CDT by Kylah Polk M.D. [id number]
[2021-10-20] MEDS: sodium chloride 0.9% 1,000 ML 999 ML IV (20:05)
[2021-10-20 20:15] LABS: Basophils # 0.1 10^3/uL (0.0-0.1); Basophils % 0.9 %; Eosinophils # 0.1 10^3/uL (0.0-0.8); Eosinophils % 1.7 %; Hematocrit 39.7 % (37.0-47.0); Hemoglobin 13.2 g/dL (11.5-15.3); Lymphocytes # 1.1 10^3/uL (0.8-4.8); Lymphocytes % 20.2 %; Mean Corpuscular HGB Conc 33.2 g/dL (30.0-36.0); Mean Corpuscular Hemoglobin 29.3 pg (28.0-34.0); Mean Platelet Volume 11.4 fL (7.4-10.4); Monocytes # 0.6 10^3/uL (0.2-0.9); Monocytes % 10.9 %; Neutrophils # 3.55 10^3/uL (1.8-7.7); Neutrophils % 65.9 %; Nucleated Red Blood Cells % 0 %; Platelet Count 68 10^3/cmm (130-400); Red Blood Count 4.51 10^6/uL (4.1-5.3); Red Cell Distribution Width 13.7 % (12.1-15.1); White Blood Count 5.4 10^3/uL (4.0-10.0)
[2021-10-20 20:31] LABS: Ammonia 58 umol/L (11-51)
[2021-10-20 20:33] LABS: Troponin(5th) Baseline 8 ng/L (0-10)
[2021-10-20 20:41] LABS: Alanine Aminotransferase 47 U/L (0-33); Albumin Level 3.3 g/dL (3.5-5.2); Alkaline Phosphatase 112 IU/L (35-105); Anion Gap 10.9 (5-19); Aspartate Amino Transferase 88 U/L (0-32); Blood Urea Nitrogen 10 mg/dL (8-23); Calcium 8.4 mg/dL (8.5-10.5); Carbon Dioxide 23 mmol/L (22-29); Chloride 102 mmol/L (98-107); Free T4 Free Thyroxine 1.76 ng/dL (0.82-1.77); Globulin 5.9 g/dL (1.3-4.6); Glomerular Filtration Rate 99.7 mL/min (90-130); Glucose 225 mg/dL (65-115); Lipase 64 U/L (13-60); Osmolality Calculated 280 mOsm/kg (285-295); Potassium 3.9 mmol/L (3.5-5.1); Sodium 132 mmol/L (136-145); Thyroid Stimulating Hormone 0.86 uIU/mL (0.27-4.20); Total Bilirubin 0.9 mg/dL (0.15-1.2); Total Protein 9.2 g/dL (6.6-8.7)
[2021-10-20 20:42] LABS: Acetaminophen < 5.0 ug/mL (10-30); Salicylate < 0.3 mg/dL (3-10)
--- NOTE | 2021-10-20 21:01 | CTR_ITS ---
PROCEDURE INFORMATION: Exam: CT Angiography Head With Contrast, Arteriography Exam date and time: 10/20/2021 9:18 PM Age: 66 years old Clinical indication: Patient HX: C/O weakness/ams; Additional info: Eval for posterior fossa pathologies TECHNIQUE: Imaging protocol: Computed tomography angiography of the head with contrast. Exam focused on the arteries. 3D rendering (Not supervised by radiologist): MIP and/or 3D reconstructed images were created by the technologist. Radiation optimization: All CT scans at this facility use at least one of these dose optimization techniques: automated exposure control; mA and/or kV adjustment per patient size (includes targeted exams where dose is matched to clinical indication); or iterative reconstruction. Contrast material: OMNI 350; Contrast volume: 190 ml; Contrast route: INTRAVENOUS (IV); COMPARISON: 1. CT head wo con* [id number] 10/20/2021 8:[address] angio chest abdomen pelvis 04/12/2020 6:35 PM RADIATION DOSE METRICS: Total DLP (mGy-cm): 3703.02 FINDINGS: ANTERIOR CIRCULATION: Right internal carotid artery: Unremarkable. Intracranial segment is patent with no significant stenosis. No aneurysm. Right middle cerebral artery: Unremarkable. No occlusion or significant stenosis. No aneurysm. Right anterior cerebral artery: Unremarkable. No occlusion or significant stenosis. No aneurysm. Left internal carotid artery: Unremarkable. Intracranial segment is patent with no significant stenosis. No aneurysm. Left middle cerebral artery: Unremarkable. No occlusion or significant stenosis. No aneurysm. Left anterior cerebral artery: Unremarkable. No occlusion or significant stenosis. No aneurysm. POSTERIOR CIRCULATION: Right vertebral artery: Unremarkable. No occlusion or significant stenosis. No aneurysm. Left vertebral artery: Unremarkable. No occlusion or significant stenosis. No aneurysm. Basilar artery: Unremarkable. No occlusion or significant stenosis. No aneurysm. Right posterior cerebral artery: Unremarkable. No occlusion or significant stenosis. No aneurysm. Left posterior cerebral artery: Unremarkable. No occlusion or significant stenosis. No aneurysm. PROCEDURE INFORMATION: Exam: CT Angiography Neck With Contrast Exam date and time: 10/20/2021 9:18 PM Age: 66 years old Clinical indication: Patient HX: C/O weakness/ams; Additional info: Eval for posterior fossa pathologies TECHNIQUE: Imaging protocol: Computed tomography angiography of the neck with contrast. 3D rendering (Not supervised by radiologist): MIP and/or 3D reconstructed images were created by the technologist. Radiation optimization: All CT scans at this facility use at least one of these dose optimization techniques: automated exposure control; mA and/or kV adjustment per patient size (includes targeted exams where dose is matched to clinical indication); or iterative reconstruction. Contrast material: OMNI 350; Contrast volume: 190 ml; Contrast route: INTRAVENOUS (IV); COMPARISON: 1. CT head wo con* [id number] 10/20/2021 8:[address] angio chest abdomen pelvis 04/12/2020 6:35 PM RADIATION DOSE METRICS: Total DLP (mGy-cm): 3703.02 FINDINGS: Right common carotid artery: No stenosis. No dissection or occlusion. Right internal carotid artery: No stenosis of the extracranial segment. No dissection or occlusion. Right external carotid artery: No occlusion or stenosis of the origin. Left common carotid artery: No stenosis. No dissection or occlusion. Left internal carotid artery: No stenosis of the extracranial segment. No dissection or occlusion. Left external carotid artery: No occlusion or stenosis of the origin. Right vertebral artery: Mild stenosis of the right vertebral artery with calcified plaque. Left vertebral artery: No stenosis. No dissection or occlusion. Soft tissues: Normal. No significant soft tissue swelling. Bones/joints: No acute fracture. CT/CT angio headneck* [id number] IMPRESSION: No large vessel stenosis or occlusion. IMPRESSION: No significant stenosis or occlusion of the neck arteries. REFERENCES: NASCET CRITERIA. The degree of internal carotid artery stenosis is based on NASCET criteria. Normal is no stenosis. Mild is less than 50% stenosis. Moderate is 50-69% stenosis. Severe is 70% to 99% stenosis. Total occlusion is no detectable patent lumen.
[2021-10-20] MEDS: iohexol 350 mg/mL 100 mL Btl IV ×3 (21:21→22:52)
--- NOTE | 2021-10-20 21:24 | ED_ITS ---
HPI - General Adult General: Chief complaint: Nausea/Vomiting/Diarrhea Stated complaint: N/V/WEAKNESS Time Seen by Provider: 10/20/21 19:31 History of Present Illness: Patient is a 66-year-old female with a history of COVID COPD, CHF, hypertension, hyperlipidemia, hypothyroidism, diabetes presenting to the emergency room for evaluation of lightheadedness, inability to ambulate, and altered mental status. Patient's son, this morning, patient has had difficulty walking. Patient was able to ambulate without any issues at baseline. However patient had another episode of fall yesterday. Patient denies any associate chest pain, short of breath, patient lightheadedness prior to the episode of fall. Patient also denies any focal neurological deficit, abdominal complaints diarrhea, melena/hematochezia or urinary complaints. Around 9 AM, patient suddenly began experience lightheadedness and unsteadiness. Patient denies any vertigo symptoms, focal neurological weakness including facial droop, slurring of speech, voice change, focal weakness in the arms or legs. Onset: 9am Duration:ongoing Location:home Severity: moderate Associated symptoms: Deny chest pain, dyspnea, nausea, rash, palpitations or vomiting Review of Systems Const: Denies: fever(s) or chills Eyes: Denies: change in vision ENMT: Denies: mouth pain Card: Denies: chest pain or palpitations Resp: Denies: dyspnea or non-productive cough GI: Denies: abdominal pain, nausea, vomiting or diarrhea : Denies: dysuria Musc: Denies: extremity pain Skin/Breast: Denies: rash or new lesions Neuro: Reports: other (+light-headedness); Denies: weakness in extremities Psych: Reports: other (Normal mood) Aj/Lymph: Denies: easy bruising PFSH ED PFSH: Medical History COPD (chronic obstructive pulmonary disease) Coronary artery disease Depression with anxiety Diastolic heart failure Essential hypertension Hyperlipidemia Hypertension Hypothyroidism Type 2 diabetes mellitus Surgical History History of appendectomy History of cholecystectomy History of hysterectomy History of uvulopalatopharyngoplasty S/P exploratory laparotomy S/P percutaneous transluminal angioplasty (TESTING TECH) with stent placement Family History Other CAD (coronary artery disease) Social History Smoking and tobacco status: current every day smoker Second hand smoke exposure: Yes Alcohol intake: never Adopted: No Caregiver/support person: Yes Lives independently: Yes Household members: none Housing: Apartment Marital status: Number of children: 5 Highest education level completed: Associate Degree: Academic Program service: No Current occupational status: retired and disabled Pets and animals: Yes Pets & animals: cat(s) History of recent travel: Yes Out of state: Yes Out of country: No Sexually active: No Current gender identity: Female [place]ogany/Religious: [employer] Physical Exam Const: COMMON NORMALS: alert HENMT: COMMON NORMALS: atraumatic HEAD & SCALP: atraumatic MOUTH: moist mucous membranes not abnormal Eye: COMMON NORMALS: EOMs intact bilaterally and conjunctivae normal CONJUNCTIVA: Yes conjunctivae normal Neck/C-Spine: COMMON NORMALS: full ROM and supple Resp: COMMON NORMALS: normal respiratory effort and clear to auscultation bilaterally AUSCULTATION: clear to auscultation bilaterally Cardio: COMMON NORMALS: regular rate RATE: regular rate GI: COMMON NORMALS: Soft to palpation and non-tender PALPATION: Yes Soft to palpation Extremity: COMMON NORMALS: full ROM Neuro: SENSORIUM/ORIENTATION: Yes alert OTHER: Mental status? Awake, alert, and oriented to self, year, month, location, and situation.? Following simple axial and appendicular commands.? Has appropriate fund of knowledge, comprehension, and insight.? Able to recall and understands pertinent aspects of medical history and current treatment status.? ? Language? Speech is fluent without word-finding difficulties.? 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 ? Cranial nerves? 2,3,4,6: PERRL, EOMI with no nystagmus. 5: Intact sensation to light touch, symmetric? 7: Smile symmetrical, no facial droop.? 8: Hearing grossly intact.? 9,10: Normal palate movement.? 11: Normal strength in trapezius bilaterally 12: Tongue protrudes midline.? ? Motor examination? Normal bulk & tone. Strength as follows (R/L): Delts (5/5), Biceps (5/5), Triceps (5/5), Wrist ext (5/5), hip flexors (5/5), plantarflexors (5/5), dorsiflexors (5/5). ? Sensation? Light Touch: Grossly intact and equal in upper and lower extremities bilaterally? Romberg: Negative.? Distal joint position sense intact ? Coordination? [id number]-[id number]-finger movements intact without dysmetria or past-pointing.? Rapid fingertaps: preserved amplitude without decriment.? No tremor, myoclonus or truncal ataxia.? ? Gait/stance? +UNSTABLE gait Psych: COMMON NORMALS: speech normal SPEECH: Yes normal speech MOOD & AFFECT: Yes euthymic mood Course Vital Signs: Vital signs: Vital Signs Temperature 98.1 F 10/21/21 19:51 Pulse Rate 62 10/21/21 19:51 Respiratory Rate 19 H 10/21/21 19:51 Blood Pressure 114/74 10/21/21 19:51 Pulse Oximetry 92 10/21/21 19:51 MDM - General Adult Medical Decision Making 66-year-old female with a history of COPD, diabetes, CAD, hypertension presenting to the emergency room for concerns of new onset of gait instability lightheadedness since 9 AM this morning. On physical exam, patient has intact neurological exam other than gait and Romberg. Patient is unable to perform gait exam given significant lightheadedness despite IV fluid trial. Troponin similar to baseline. EKG nonischemic. X-ray chest negative for any acute finding. CT head negative for any findings. CTA head negative for any acute dissection or vascular pathologies. Given the fact the patient still is unable to ambulate and this is new, this is concerning for possible posterior fossa pathology. Patient will need to be admitted for MRI and further work-up. UA showed possible for UTI. Patient received 1g of ceftriaxone. Disposition: admission Lab Data : 10/21/21 02:15 10/21/21 02:15 Radiology Impressions Chest X-Ray 10/20/21 19:54 IMPRESSION: No acute findings. Head CT 10/20/21 19:54 IMPRESSION: No acute intracranial abnormality. Head/Neck CTA 10/20/21 21:01 IMPRESSION: No large vessel stenosis or occlusion. IMPRESSION: No significant stenosis or occlusion of the neck arteries. REFERENCES: NASCET CRITERIA. The degree of internal carotid artery stenosis is based on NASCET criteria. Normal is no stenosis. Mild is less than 50% stenosis. Moderate is 50-69% stenosis. Severe is 70% to 99% stenosis. Total occlusion is no detectable patent lumen. Chest CTA 10/20/21 22:01 IMPRESSION: No pulmonary embolism. Liver Ultrasound 10/21/21 00:21 IMPRESSION: 1. Cholecystectomy. 2. Fatty liver. Lumbar Spine X-Ray 10/21/21 00:21 IMPRESSION: There are no acute osseous findings. Laboratory Results WBC 5.4 10^3/uL (4.0-10.0) 10/20/21 20:07 RBC 4.51 10^6/uL (4.1-5.3) 10/20/21 20:07 Hgb 13.2 g/dL (11.5-15.3) 10/20/21 20:07 Hct 39.7 % (37.0-47.0) 10/20/21 20:07 MCV 88.0 fl (81-99) 10/20/21 20:07 MCH 29.3 pg (28.0-34.0) 10/20/21 20:07 MCHC 33.2 g/dL (30.0-36.0) 10/20/21 20:07 RDW 13.7 % (12.1-15.1) 10/20/21 20:07 Plt Count 68 10^3/cmm (130-400) L 10/20/21 20:07 MPV 11.4 fL (7.4-10.4) H 10/20/21 20:07 Neut % (Auto) 65.9 % 10/20/21 20:07 Lymph % (Auto) 20.2 % 10/20/21 20:07 [place] % (Auto) 10.9 % 10/20/21 20:07 Eos % (Auto) 1.7 % 10/20/21 20:07 Baso % (Auto) 0.9 % 10/20/21 20:07 Neut # (Auto) 3.55 10^3/uL (1.8-7.7) 10/20/21 20:07 Lymph # (Auto) 1.1 10^3/uL (0.8-4.8) 10/20/21 20:07 [place] # (Auto) 0.6 10^3/uL (0.2-0.9) 10/20/21 20:07 Eos # (Auto) 0.1 10^3/uL (0.0-0.8) 10/20/21 20:07 Baso # (Auto) 0.1 10^3/uL (0.0-0.1) 10/20/21 20:07 Nucleated RBC % (auto) 0 % 10/20/21 20:07 Nucleated RBCs # 0.0 /100WBC 10/20/21 20:07 D-Dimer 0.70 ug/mIFEU (0-0.59) H 10/20/21 20:07 Sodium 132 mmol/L (136-145) L 10/20/21 20:07 Potassium 3.9 mmol/L (3.5-5.1) 10/20/21 20:07 Chloride 102 mmol/L (98-107) 10/20/21 20:07 Carbon Dioxide 23 mmol/L (22-29) 10/20/21 20:07 Anion Gap 10.9 (5-19) 10/20/21 20:07 BUN 10 mg/dL (8-23) 10/20/21 20:07 Creatinine 0.6 mg/dL (0.5-0.9) 10/20/21 20:07 GFR Calculation 99.7 mL/min (90-130) 10/20/21 20:07 Glucose 225 mg/dL (65-115) H 10/20/21 20:07 Calculated Osmolality 280 mOsm/kg (285-295) L 10/20/21 20:07 Calcium 8.4 mg/dL (8.5-10.5) L 10/20/21 20:07 Total Bilirubin 0.9 mg/dL (0.15-1.2) 10/20/21 20:07 AST 88 U/L (0-32) H 10/20/21 20:07 ALT 47 U/L (0-33) H 10/20/21 20:07 Alkaline Phosphatase 112 IU/L (35-105) H 10/20/21 20:07 Ammonia 58 umol/L (11-51) H 10/20/21 20:07 Troponin T Baseline 8 ng/L (0-10) 10/20/21 20:07 Total Protein 9.2 g/dL (6.6-8.7) H 10/20/21 20:07 Albumin 3.3 g/dL (3.5-5.2) L 10/20/21 20:07 Globulin 5.9 g/dL (1.3-4.6) H 10/20/21 20:07 Lipase 64 U/L (13-60) H 10/20/21 20:07 TSH 0.86 uIU/mL (0.27-4.20) 10/20/21 20:07 Free T4 1.76 ng/dL (0.82-1.77) 10/20/21 20:07 Urine Color Yellow (Yellow) 10/20/21 21:37 Urine Appearance Sl hazy (CLEAR) 10/20/21 21:37 Urine pH 7 (5-7) 10/20/21 21:37 Ur Specific [place] 1.005 (1.005-1.030) 10/20/21 21:37 Urine Protein Neg (Negative) 10/20/21 21:37 Urine Glucose (UA) Norm (Normal) 10/20/21 21:37 Urine Ketones Negative (Negative) 10/20/21 21:37 Urine Blood Neg (Negative) 10/20/21 21:37 Urine Nitrate Negative (Negative) 10/20/21 21:37 Urine Bilirubin 1+ (Negative) H 10/20/21 21:37 Urine Urobilinogen Norm mg/dL (Negative) 10/20/21 21:37 Ur Leukocyte Esterase 1+ (Negative) H 10/20/21 21:37 Urine RBC 0-4 /hpf (0-2) H 10/20/21 21:37 Urine WBC 25-40 /hpf (0-5) H 10/20/21 21:37 Ur Squamous Epith Cells 25-40 /hpf (0-5) H 10/20/21 21:37 Amorphous Sediment Not Reportable 10/20/21 21:37 Urine Bacteria 4+ /hpf (NONE) H 10/20/21 21:37 Salicylates < 0.3 mg/dL (3-10) L 10/20/21 20:07 Acetaminophen < 5.0 ug/mL (10-30) L 10/20/21 20:07 Imaging Data Other Imaging: Radiologist's impression: [email or web address] [address] [place] [address]. [place] [id number] CT Scan Report Signed Patient: Luh Ray Unit #: [id number] : 1955 Age/Sex: 66 / F ADM Date: 10/20/21 Loc: ER Room/Bed: Attending Dr: Ordering Provider/Ordering MD: Julia Palomino MD Date of Service: 10/20/21 Procedure(s): CT head wo con* [id number] Accession Number(s): [id number] Report Number: [id number] PROCEDURE INFORMATION: Exam: CT Head Without Contrast Exam date and time: 10/20/2021 8:24 PM Age: 66 years old Clinical indication: Patient HX: C/O n/v and weakness; Additional info: AMS TECHNIQUE: Imaging protocol: Computed tomography of the head without contrast. Radiation optimization: All CT scans at this facility use at least one of these dose optimization techniques: automated exposure control; mA and/or kV adjustment per patient size (includes targeted exams where dose is matched to clinical indication); or iterative reconstruction. COMPARISON: CT head wo con* [id number] 07/15/2019 11:31 AM RADIATION DOSE METRICS: Total DLP (mGy-cm): 815.6 FINDINGS: Brain: There is volume loss and periventricular low density compatible with chronic small vessel disease changes. There is no acute hemorrhage, edema or mass effect. Cerebral ventricles: There is unchanged ventriculomegaly compatible with ex vacuo type changes. Paranasal sinuses: Visualized sinuses are unremarkable. No fluid levels. Mastoid air cells: Visualized mastoid air cells are well aerated. Bones/joints: Unremarkable. No acute fracture. Soft tissues: Unremarkable. CT/CT head wo con* [id number] IMPRESSION: No acute intracranial abnormality. ? Dictated By: Alva Lema Signed By: Alva Lema Signed Date/Time: 10/20/212039 DD/ [address] [email or web address] [address] [place] [id number] XRay Report Signed Patient: Luh Ray Unit #: [id number] : 1955 Age/Sex: 66 / F ADM Date: 10/20/21 Loc: ER Room/Bed: Attending Dr: Ordering Provider/Ordering MD: Julia Palomino MD Date of Service: 10/20/21 Procedure(s): XR chest 1V portable [id number] Accession Number(s): [id number] Report Number: [id number] PROCEDURE INFORMATION: Exam: XR Chest Exam date and time: 10/20/2021 8:18 PM Age: 66 years old Clinical indication: Patient HX: C/O n/v and weakness; Additional info: AMS TECHNIQUE: Imaging protocol: XR of the chest. Views: 1 view. COMPARISON: CR XR chest 1V portable [id number] 07/26/2021 2:00 AM FINDINGS: Lungs: Unremarkable. No consolidation. Pleural spaces: Unremarkable. No pleural effusion. No pneumothorax. Heart/Mediastinum: Unremarkable. No cardiomegaly. Bones/joints: No acute abnormality. XR/XR chest 1V portable [id number] IMPRESSION: No acute findings. ? Dictated By: Alva Lema Signed By: Alva Lema Signed Date/Time: 10/20/212037 DD/ 17 [place] [address] CT Scan Report Signed Patient: Luh Ray Unit #: [id number] : 1955 Age/Sex: 66 / F ADM Date: 10/20/21 Loc: ER Room/Bed: Attending Dr: Ordering Provider/Ordering MD: Julia Palomino MD Date of Service: 10/20/21 Procedure(s): CT angio headneck* [id number] Accession Number(s): [id number] Report Number: [id number] PROCEDURE INFORMATION: Exam: CT Angiography Head With Contrast, Arteriography Exam date and time: 10/20/2021 9:18 PM Age: 66 years old Clinical indication: Patient HX: C/O weakness/ams; Additional info: Eval for posterior fossa pathologies TECHNIQUE: Imaging protocol: Computed tomography angiography of the head with contrast. Exam focused on the arteries. 3D rendering (Not supervised by radiologist): MIP and/or 3D reconstructed images were created by the technologist. Radiation optimization: All CT scans at this facility use at least one of these dose optimization techniques: automated exposure control; mA and/or kV adjustment per patient size (includes targeted exams where dose is matched to clinical indication); or iterative reconstruction. Contrast material: OMNI 350; Contrast volume: 190 ml; Contrast route: INTRAVENOUS (IV);? COMPARISON: 1. CT head wo con* [id number] 10/20/2021 8:[address] angio chest abdomen pelvis 04/12/2020 6:35 PM RADIATION DOSE METRICS: Total DLP (mGy-cm): 3703.02 FINDINGS: ANTERIOR CIRCULATION: Right internal carotid artery: Unremarkable. Intracranial segment is patent with no significant stenosis. No aneurysm. Right middle cerebral artery: Unremarkable. No occlusion or significant stenosis. No aneurysm.? Right anterior cerebral artery: Unremarkable. No occlusion or significant stenosis. No aneurysm.? Left internal carotid artery: Unremarkable. Intracranial segment is patent with no significant stenosis. No aneurysm. Left middle cerebral artery: Unremarkable. No occlusion or significant stenosis. No aneurysm.? Left anterior cerebral artery: Unremarkable. No occlusion or significant stenosis. No aneurysm.? POSTERIOR CIRCULATION: Right vertebral artery: Unremarkable. No occlusion or significant stenosis. No aneurysm.? Left vertebral artery: Unremarkable. No occlusion or significant stenosis. No aneurysm.? Basilar artery: Unremarkable. No occlusion or significant stenosis. No aneurysm. Right posterior cerebral artery: Unremarkable. No occlusion or significant stenosis. No aneurysm.? Left posterior cerebral artery: Unremarkable. No occlusion or significant stenosis. No aneurysm.? PROCEDURE INFORMATION: Exam: CT Angiography Neck With Contrast Exam date and time: 10/20/2021 9:18 PM Age: 66 years old Clinical indication: Patient HX: C/O weakness/ams; Additional info: Eval for posterior fossa pathologies TECHNIQUE: Imaging protocol: Computed tomography angiography of the neck with contrast. 3D rendering (Not supervised by radiologist): MIP and/or 3D reconstructed images were created by the technologist. Radiation optimization: All CT scans at this facility use at least one of these dose optimization techniques: automated exposure control; mA and/or kV adjustment per patient size (includes targeted exams where dose is matched to clinical indication); or iterative reconstruction. Contrast material: OMNI 350; Contrast volume: 190 ml; Contrast route: INTRAVENOUS (IV);? COMPARISON: 1. CT head wo con* [id number] 10/20/2021 8:[address] angio chest abdomen pelvis 04/12/2020 6:35 PM RADIATION DOSE METRICS: Total DLP (mGy-cm): 3703.02 FINDINGS: Right common carotid artery: No stenosis. No dissection or occlusion. Right internal carotid artery: No stenosis of the extracranial segment. No dissection or occlusion. Right external carotid artery: No occlusion or stenosis of the origin.? Left common carotid artery: No stenosis. No dissection or occlusion. Left internal carotid artery: No stenosis of the extracranial segment. No dissection or occlusion. Left external carotid artery: No occlusion or stenosis of the origin.? Right vertebral artery: Mild stenosis of the right vertebral artery with calcified plaque. Left vertebral artery: No stenosis. No dissection or occlusion. Soft tissues: Normal. No significant soft tissue swelling. Bones/joints: No acute fracture. CT/CT angio headneck* [id number] IMPRESSION: No large vessel stenosis or occlusion. ? ? IMPRESSION: No significant stenosis or occlusion of the neck arteries. REFERENCES: NASCET CRITERIA. The degree of internal carotid artery stenosis is based on NASCET criteria. Normal is no stenosis. Mild is less than 50% stenosis. Moderate is 50-69% stenosis. Severe is 70% to 99% stenosis. Total occlusion is no detectable patent lumen. ? Dictated By: Deven Moulton MD Signed By: Deven Moulton MD Signed Date/Time: 10/20/212158 DD/ 17 Discharge Plan Discharge Patient Disposition: Admitted As Inpatient Admit Provider: Ollie Azar Clinical Impression: Acute UTI, Light headedness, Gait instability Condition: Stable Coding Level of Care Code ED Assistant Finance Director for Chg Fwd Exam Comprehensive
[2021-10-20 21:51] LABS: Glucose Urine UA Norm (Normal); Ketones Urine Negative (Negative); Protein Urine Neg (Negative); Specific Gravity, Urine 1.005 (1.005-1.030); Urine Appearance SL Hazy (CLEAR); Urine Color Yellow (Yellow); pH Urine 7 (5-7)
[2021-10-20 21:52] LABS: Add Urine Microscopic? YES; Bilirubin Urine 1+ (Negative); Blood Urine Neg (Negative); Leukocyte Esterase Urine 1+ (Negative); Nitrate Urine Negative (Negative); Urobilinogen Urine Norm (Negative)
[2021-10-20 21:56] LABS: Bacteria Urine 4+ /hpf; RBC Urine 0-4 /hpf (0-2); Squamous Epithelial Cell Urine 25-40 /hpf (0-5); WBC Urine 25-40 /hpf (0-5)
[2021-10-20 21:57] LABS: Add Urine Culture? No
--- NOTE | 2021-10-20 22:01 | CTR_ITS ---
PROCEDURE INFORMATION: Exam: CTA Chest With Contrast Exam date and time: 10/20/2021 10:51 PM Age: 66 years old Clinical indication: Abnormal findings; Abnormal diagnostic tests; Elevated d-dimer; Patient HX: Elev d-dimer; Additional info: Elevated dimer, syncope TECHNIQUE: Imaging protocol: Computed tomographic angiography of the chest with contrast. 3D rendering (Not supervised by radiologist): MIP and/or 3D reconstructed images were created by the technologist. Radiation optimization: All CT scans at this facility use at least one of these dose optimization techniques: automated exposure control; mA and/or kV adjustment per patient size (includes targeted exams where dose is matched to clinical indication); or iterative reconstruction. Contrast material: OMNI 350; Contrast volume: 38 ml; Contrast route: INTRAVENOUS (IV); COMPARISON: CT angio chest abdomen pelvis 04/12/2020 6:35 PM RADIATION DOSE METRICS: Total DLP (mGy-cm): 535.04 FINDINGS: Pulmonary arteries: Normal. No pulmonary emboli. Aorta: Unremarkable. No aortic aneurysm. No aortic dissection. Lungs: Unremarkable. No consolidation. No masses. Pleural spaces: Unremarkable. No pneumothorax. No pleural effusion. Heart: Coronary vasculature calcifications. Lymph nodes: Unremarkable. No enlarged lymph nodes. Bones/joints: Unremarkable. No acute fracture. Soft tissues: Unremarkable. CT/CT angio chest PE protcl [id number] IMPRESSION: No pulmonary embolism.
[2021-10-20 22:35] LABS: Troponin 5 2HR 9.03 ng/L (0-10)
--- NOTE | 2021-10-20 23:05 | P.HP_ITS ---
Providers/Chief Complaint Admitting Physician: Ollie Azar MD Primary Care Provider: Sara Montenegro DO Chief Complaint: N/V/WEAKNESS History of Present Illness Luh Ray is a 66 year old female with a past medical history of CAD status post stenting x3, history of systolic CHF secondary to ischemic cardiomyopathy, COPD, BRYN, hypertension, hypothyroidism, anxiety and depression, history of chronic transaminitis, chronic thrombocytopenia, who presents [facility] for syncopal episode, unsteadiness, dizziness, Patient tells me that recently she just has been feeling well, she is not really expansive, but she just tells me she has been feeling well, this morning she she woke up, nothing out of ordinary, she normally ambulates on her own, no recent falls, no recent injuries, she lives in [place] with her son, she tells me that sometime this afternoon she is not exactly sure what time, but she believes she passed out, because she is the next and she remembers she was on the floor, and she crawled to the phone and was able to call her son who had friends come and get her off the ground. She denies hitting her head, does have chronic right shoulder pain, right hip pain, and has had back pain. She sees Dr. Montenegro. Denies any preceding chest pain or palpitations. No preceding shortness of breath. Denies any history of passing out in the past. No dysuria. No cough, no recent illness per se. According to the ER physician, they were unable to get her up on her feet she is very unsteady. She tells me she can bear weight, but has severe right hip pain, and she just feels unsteady on her feet. She does have diabetic peripheral neuropathy and has lack of sensation in her bilateral extremities. But her inability to keep balance is not normal for her Review of Systems Const: Denies: fever(s), chills, fatigue or malaise Eyes: Denies: change in vision or blurry vision ENMT: Denies: nasal congestion Resp: Denies: dyspnea, productive cough, non-productive cough or wheezing GI: Denies: abdominal pain, nausea, vomiting or diarrhea : Denies: flank pain, dysuria or urinary frequency Skin/Breast: Denies: rash Neuro: Denies: headache(s) Endo: Denies: polyuria or polydipsia Medications/Allergies Home Medications Medication Instructions Recorded Confirmed Last Taken Type fluticasone propionate 50 2 spray INTRANASAL DAILY 07/15/19 10/09/21 08/22/19 History mcg/actuation nasal spray,suspension (Flonase Allergy Relief) venlafaxine 150 mg 150 mg PO DAILY 08/22/19 10/09/21 08/21/19 History capsule,extended release 24 hr (Effexor XR) albuterol sulfate 90 mcg/actuation 2 inh INHALATION Q4H PRN #18 gm 10/14/19 10/09/21 Unknown Rx aerosol inhaler fluticasone 250 mcg-salmeterol 50 1 inh INHALATION BID #60 each 10/14/19 10/09/21 Unknown Rx mcg/dose blistr powdr for inhalation (Advair Diskus) isosorbide mononitrate 30 mg 30 mg PO DAILY 90 Days #90 tab 10/10/20 10/09/21 Unknown Rx tablet,extended release 24 hr aspirin 81 mg tablet,delayed 81 mg PO DAILY 04/14/21 10/09/21 Unknown History release blood sugar diagnostic (FreeStyle 04/14/21 10/09/21 Unknown History Test) blood-glucose meter (FreeStyle #1 ea 04/14/21 10/09/21 Unknown Rx [place]annock Lite) folicall 2 cap PO DAILY 04/14/21 10/09/21 Unknown History insulin needles (disposable) 30 X 04/14/21 10/09/21 Unknown History 3/4 pen needle, diabetic 31 gauge x #120 ea 04/14/21 10/09/21 Unknown Rx 3/16 (TechLITE Pen Needle) atorvastatin 40 mg tablet 40 mg PO DAILY #90 tab 06/27/21 10/09/21 Unknown Rx pantoprazole 40 mg tablet,delayed 40 mg PO DAILY #90 tab 06/27/21 10/09/21 Unknown Rx release (Protonix) spironolactone 25 mg tablet 12.5 mg PO DAILY #90 tab 06/27/21 10/09/21 Unknown Rx potassium chloride 10 mEq See Rx Instructions .ROUTE 07/10/21 10/09/21 Unknown Rx capsule,extended release .COMPLEX #30 cap trazodone 100 mg tablet See Rx Instructions .ROUTE 07/10/21 10/09/21 Unknown Rx .COMPLEX #30 tab ondansetron 4 mg disintegrating 4 mg PO Q6H PRN #14 tab 07/26/21 10/09/21 Unknown Rx tablet insulin degludec 200 unit/mL (3 See Rx Instructions .ROUTE 08/14/21 10/09/21 Unknown Rx mL) subcutaneous pen (Tresiba .COMPLEX #9 ml FlexTouch U-200 insulin) levothyroxine 200 mcg tablet 200 mcg PO DAILY #30 tab 08/23/21 10/09/21 Unknown Rx naproxen 375 mg tablet 375 mg PO BID PRN 10 Days #14 tab 08/23/21 10/09/21 Unknown Rx insulin lispro 100 unit/mL 10 unit (0.1 mL) SUBCUT TID #15 ml 10/09/21 10/09/21 Unknown Rx subcutaneous pen (Humalog KwikPen (U-100) Insulin) tramadol 50 mg tablet 50 mg PO .po q hs #7 tab 10/09/21 10/09/21 Unknown Rx flash glucose sensor (FreeStyle #2 ea 10/12/21 Unknown Rx Rox 14 Day Sensor) Allergies Allergy/AdvReac Type Severity Reaction Status Date / Time meperidine [From Demerol] Allergy Severe Unconscious Verified 10/09/21 11:11 amoxicillin Allergy Intermediate Rash Verified 10/09/21 11:11 pseudoephedrine [From NyQuil] Allergy Intermediate ADR-Agitate Verified 10/09/21 11:11 d pentazocine [From Talwin] Allergy Unknown Unknown Verified 10/09/21 11:11 prochlorperazine Allergy Unknown Unknown Verified 10/09/21 11:11 [From Compazine] acetaminophen [From NyQuil] Allergy ADR-Agitate Verified 10/09/21 11:11 d dextromethorphan Allergy ADR-Agitate Verified 10/09/21 11:11 [From NyQuil] d doxylamine [From NyQuil] Allergy ADR-Agitate Verified 10/09/21 11:11 d PFSH Acute PFSH: Medical History COPD (chronic obstructive pulmonary disease) Coronary artery disease Depression with anxiety Diastolic heart failure Essential hypertension Hyperlipidemia Hypertension Hypothyroidism Type 2 diabetes mellitus Surgical History History of appendectomy History of cholecystectomy History of hysterectomy History of uvulopalatopharyngoplasty S/P exploratory laparotomy S/P percutaneous transluminal angioplasty ([employer]CH[employer]) with stent placement Family History Other CAD (coronary artery disease) Social History Smoking and tobacco status: current every day smoker Second hand smoke exposure: Yes Alcohol intake: never Adopted: No Caregiver/support person: Yes Lives independently: Yes Household members: none Housing: Apartment Marital status: Number of children: 5 Highest education level completed: Associate Degree: Academic Program service: No Current occupational status: retired and disabled Pets and animals: Yes Pets & animals: cat(s) History of recent travel: Yes Out of state: Yes Out of country: No Sexually active: No Current gender identity: Female Mahogany/Adventism: [employer] Vitals/I&O/Wt Last Vital Signs Temp 97.0 F L 10/20/21 19:34 Pulse 83 10/20/21 22:30 Resp 16 10/20/21 22:30 BP 164/80 10/20/21 22:30 Pulse Ox 93 10/20/21 22:30 10/20/21 10/20/21 10/21/21 14:59 22:59 06:59 Intake Total 1000 / 1000 Balance 1000 / 1000 Weight last 48 hrs Weight 72.575 kg Physical Exam Const: COMMON NORMALS: no acute distress and patient oriented x3 HENMT: COMMON NORMALS: normocephalic HEAD & SCALP: normocephalic Eye: COMMON NORMALS: Equal, round and reactive pupils present and EOMs intact bilaterally Neck/C-Spine: COMMON NORMALS: full ROM and no lymphadenopathy Resp: COMMON NORMALS: normal respiratory effort, No retractions, No use of accessory muscles and clear to auscultation bilaterally AUSCULTATION: clear to auscultation bilaterally Cardio: COMMON NORMALS: regular rate, regular rhythm, S1 normal heart sound present and S2 normal heart sound present RATE: regular rate RHYTHM: regular rhythm HEART SOUNDS: S1 normal heart sound present and S2 normal heart sound present GI: COMMON NORMALS: Normal to inspection, nondistended, normoactive bowel sounds present, Soft to palpation and non-tender PALPATION: Yes Soft to palpation Extremity: COMMON NORMALS: capillary refill normal, no clubbing, cyanosis or edema, no calf tenderness and no pedal edema Neuro: COMMON NORMALS: patient oriented x3, CN's II-XII intact bilaterally, moves all extremities and no focal motor deficits Psych: COMMON NORMALS: mental status grossly normal Data : 10/20/21 20:07 10/20/21 20:07 A&P Assessment and plan (1) Acute UTI: Status: Acute (2) Light headedness: Status: Acute (3) Gait instability: Status: Acute (4) Chronic right hip pain: Status: Acute (5) Chronic right shoulder pain: Status: Acute (6) Hypothyroidism: Status: Acute Qualifiers: Hypothyroidism type: acquired Qualified Code(s): E03.9 - Hypothyroidism, unspecified (7) Hyperlipidemia: Status: Acute Qualifiers: Hyperlipidemia type: mixed hyperlipidemia Qualified Code(s): E78.2 - Mixed hyperlipidemia (8) Essential hypertension: Status: Acute (9) Syncope: Status: Acute Plan ataxia/unsteadiness, gait instability -No focal neurologic deficits -It is difficult to do any cerebellar examination as she is complaining of severe right hip pain, right shoulder pain -But according to nursing staff and ER physician she cannot stand on her own she is very unsteady Plan -Continue aspirin, statin -Neurochecks, NIH stroke scale -Possible cerebellar ataxia, however CT of the head had no acute findings, CTA head and and neck was within normal limits -Can consider MRI -Does have evidence of UTI, continue Rocephin, urine cultures -Possible orthostatic hypotension, will do orthostatic vitals -Physical therapy OT -DNR/DNI -Lovenox for DVT prophylaxis Syncope -Sounds like a true syncopal episode -Serial EKGs, serial troponins, telemetry monitoring -Cardiac echocardiogram -CT a head and neck within normal limits -TSH within normal limits -Orthostatic vitals, antibiotics as above CAD, no chest pain complaints, status post stenting x3, continue aspirin, statin -Telemetry monitoring Ischemic cardiomyopathy, does not look fluid overloaded, will do repeat e chocardiogram Right shoulder pain, mild AC arthritis Right hip pain, x-ray no acute findings Lower back pain with lumbar x-rays Chronically elevated LFTs, alk phos, thrombocytopenia, elevated ammonia levels All indicators of liver failure, this is chronic, but worsening, over time, last imaging was in 2019, will do a liver ultrasound -Ferritin, hep panel, NARGIS, liver ultrasound -Ammonia levels 58, mildly elevated, will hold off on lactulose Type 2 diabetes mellitus, Lantus 10 units daily, low-dose sliding scale Attestations Medical Necessity Statement*: Patient requires hospital patient requires hospitalization for unsteadiness, ataxia, concerning for cerebellar ataxia, outpatient with observation, Coding Level of Care Code Acute Composition Weatherboard Applier for Chg Fwd Diagnoses Acute UTI N39.0 Light headedness R42 Gait instability R26.81 Chronic right hip pain M25.551; G89.29 Chronic right shoulder pain M25.511; G89.29 Hypothyroidism E03.9 Hypothyroidism type: acquired Hyperlipidemia E78.2 Hyperlipidemia type: mixed hyperlipidemia Essential hypertension I10 Syncope R55
[2021-10-20] MEDS: sodium chloride 0.9% 500 ML IV (23:39)
[2021-10-20] MEDS: cefTRIAXone 1,000 MG in sodium chloride 0.9% (plus) 50 ML 100 MG IV (23:40)
[2021-10-21] VITALS (14 sets, daily range): BP systolic 96–153; BP diastolic 54–95; PULSE 57–82; RESP 14–19; TEMP 36.6–36.8; O2SAT 90–93
--- NOTE | 2021-10-21 00:21 | USR_ITS ---
PROCEDURE INFORMATION: Exam: US Abdomen, Limited; Right Upper Quadrant Exam date and time: 10/21/2021 6:59 AM Age: 66 years old Clinical indication: Abdominal pain; Acute; Prior surgery; Surgery date: 6+ months; Surgery type: Gb; Additional info: Liver cirhosis? TECHNIQUE: Imaging protocol: US abdomen. Real time ultrasound with image documentation. Limited exam focused on the right upper quadrant. COMPARISON: US abdomen complete* [id number] 08/13/2019 11:39 PM FINDINGS: Liver: Fatty liver. No obvious liver mass. Gallbladder: Cholecystectomy. Biliary ducts: There is mild prominence of the common bile duct with a diameter of 8 mm. This can be normal after cholecystectomy. Pancreas: Bowel gas obscures most of the pancreas but the visualized portion is unremarkable. Right kidney: Normal. No mass. No hydronephrosis. US/US liver [id number] IMPRESSION: 1. Cholecystectomy. 2. Fatty liver.
--- NOTE | 2021-10-21 00:21 | XRR_ITS ---
PROCEDURE INFORMATION: Exam: XR Lumbosacral Spine Exam date and time: 10/21/2021 5:03 AM Age: 66 years old Clinical indication: Patient HX: Patient states a recent fall and C/O persistent low back pain. ; Additional info: Fall, pain TECHNIQUE: Imaging protocol: XR of the lumbosacral spine. Views: 2 or 3 views. COMPARISON: CR XR hip RT 2-3V wo/w pel* [id number] 10/19/2021 12:29 PM FINDINGS: Bones/joints: There is a mild left-sided curvature the lumbar spine. Soft tissues: Unremarkable. XR/XR lumbar spine 2-3V* [id number] IMPRESSION: There are no acute osseous findings.
--- NOTE | 2021-10-21 00:21 | USCV_ITS ---
Means, Luh Age: 66 Gender: F : 1955 Exam Date: 10/21/2021 03:45 Ordering Phys: Ollie Azar MD Technologist: Esa Negrete Exam Location: [facility] [place] Indication: syncope BP: 112 / 75 HR: 64 Rhythm: Sinus Technical Quality: Suboptimal MEASUREMENTS (Male / Female) Normal Values 2D ECHO LV Diastolic Diameter PLAX 3.1 cm 4.2 - 5.9 / 3.9 - 5.3 cm LV Systolic Diameter PLAX 2.2 cm IVS Diastolic Thickness 1.3 cm 0.6 - 1.0 / 0.6 - 0.9 cm IVS Systolic Thickness 1.4 cm LVPW Diastolic Thickness 1.4 cm 0.6 - 1.0 / 0.6 - 0.9 cm LVPW Systolic Thickness 1.8 cm LVOT Diameter 1.9 cm LV Ejection Fraction 2D Teich 43.5 % LV Ejection Fraction MOD 2C 52.4 % LV Ejection Fraction 2C AL 53.3 % LA Diameter 3.9 cm Aorta at Sinotubular Diameter 2.4 cm M-MODE Aortic Annulus Diameter 2.9 cm LA Ao Ratio MM 1.5 MV E Point Septal Separation 1.5 cm DOPPLER AV Peak Velocity 154.3 cm/s MV Area PHT 3.9 cm squared Mitral E to A Ratio 0.9 MV E' Velocity 51.0 cm/s Mitral E to MV E' Ratio 9.0 Mitral E to LV E' Lateral Ratio 8.6 Mitral E to LV E' Septal Ratio 9.5 TR Peak Velocity 269.2 cm/s TR Peak Gradient 29.0 mmHg TR Mean Velocity 154.6 cm/s TR Mean Gradient 12.4 mmHg TR Velocity Time Integral 56.0 cm Right Atrial Pressure 5.0 mmHg Pulmonary Artery Systolic Pressu 34.0 mmHg PV Peak Velocity 121.0 cm/s FINDINGS Left Ventricle Normal left ventricular size, systolic function and wall thickness, with no regional wall motion abnormalities. Left ventricular ejection fraction is estimated at 55 %. Grade I/IV diastolic dysfunction (abnormal relaxation filling pattern), normal to mildly elevated filling pressures. Right Ventricle Normal right ventricular size and systolic function. Right Atrium The right atrium is normal in size. Left Atrium The left atrium is normal in size. Mitral Valve Structurally normal mitral valve without significant stenosis or prolapse. There is no mitral regurgitation. Aortic Valve Structurally normal aortic valve without significant sclerosis or stenosis. There is no aortic regurgitation. Tricuspid Valve Structurally normal tricuspid valve. Trace tricuspid valve regurgitation. Pulmonic Valve Pulmonic valve not well visualized. Pericardium Normal pericardium without effusion. Aorta Normal ascending aorta dimension. CONCLUSIONS Normal left ventricular size, systolic function and wall thickness, with no regional wall motion abnormalities. Left ventricular ejection fraction is estimated at 55 %. Grade I/IV diastolic dysfunction (abnormal relaxation filling pattern), normal to mildly elevated filling pressures. Dr. Eder Brownlee MD (Electronically Signed) Final Date: 21 October 2021 08:11 S
[2021-10-21] MEDS: ondansetron 2 mg/ML SDV 2 mL 4 MG IVP ×2 (00:34→23:13)
[2021-10-21] MEDS: trazodone 100 mg Tablet PO (00:37)
[2021-10-21] MEDS: TRAMadol 50 mg Tablet PO ×2 (00:37→20:17)
[2021-10-21] MEDS: enoxaparin 40 mg/0.4 mL Syringe SUBCUT ×2 (00:38→23:16)
--- NOTE | 2021-10-21 01:57 | ECG_ITS ---
[facility] [place] [facility] Date: 2021-10-21 Pat Name: Luh Ray Department: Room: 255 Gender: Female Senior Applications Architect: : 1955 Requested By: Julia Palomino Order Number: [id number] Reading MD: Eder Brownlee M.D. Measurements Intervals [place] Rate: P: [place]: QRS: QRSD: T: QT: QTc: Interpretive Statements Sinus rhythm with occasional premature atrial complexes Low voltage ATYPICAL ECG WARNING: DATA QUALITY MAY AFFECT INTERPRETATION Compared to ECG 10/20/2021 20:17:22 Sinus bradycardia no longer present Electronically Signed On 10-21-2021 8:18:37 CDT by Eder Brownlee M.D. [id number]
[2021-10-21 02:25] LABS: Basophils % 0.8 %; Eosinophils # 0.1 10^3/uL (0.0-0.8); Hemoglobin 12.3 g/dL (11.5-15.3); Lymphocytes # 1.8 10^3/uL (0.8-4.8); Lymphocytes % 35.5 %; Mean Corpuscular HGB Conc 32.4 g/dL (30.0-36.0); Mean Corpuscular Hemoglobin 29.2 pg (28.0-34.0); Mean Corpuscular Volume 90.3 fl (81-99); Mean Platelet Volume 11.4 fL (7.4-10.4); Monocytes # 0.5 10^3/uL (0.2-0.9); Neutrophils # 2.56 10^3/uL (1.8-7.7); Neutrophils % 51.5 %; Nucleated Red Blood Cells % 0 %; Platelet Count 62 10^3/cmm (130-400); Red Blood Count 4.21 10^6/uL (4.1-5.3); Red Cell Distribution Width 13.7 % (12.1-15.1)
[2021-10-21 02:45] LABS: Alanine Aminotransferase 40 U/L (0-33); Albumin Level 2.9 g/dL (3.5-5.2); Alkaline Phosphatase 105 IU/L (35-105); Anion Gap 11.8 (5-19); Aspartate Amino Transferase 67 U/L (0-32); Blood Urea Nitrogen 9 mg/dL (8-23); Calcium 8.8 mg/dL (8.5-10.5); Carbon Dioxide 22 mmol/L (22-29); Chloride 103 mmol/L (98-107); Ferritin 27 ng/mL (15-150); Globulin 6.3 g/dL (1.3-4.6); Glomerular Filtration Rate 99.7 mL/min (90-130); Glucose 150 mg/dL (65-115); Magnesium 1.4 mg/dL (1.7-2.3); Osmolality Calculated 278 mOsm/kg (285-295); Phosphorus 3.1 mg/dL (2.5-4.5); Potassium 3.8 mmol/L (3.5-5.1); Sodium 133 mmol/L (136-145); Total Bilirubin 0.7 mg/dL (0.15-1.2); Total Protein 9.2 g/dL (6.6-8.7)
[2021-10-21 06:40] LABS: Glucose Point of Care 128 mg/dL (70-110)
[2021-10-21] MEDS: insulin glargine 100 units/1 mL 10 UNIT SUBCUT (08:45)
[2021-10-21] MEDS: atorvastatin 40 mg Tablet PO (08:45)
[2021-10-21] MEDS: pantoprazole DR 40 mg Tablet PO (08:46)
[2021-10-21] MEDS: aspirin 81 mg EC Tablet PO (08:46)
[2021-10-21] MEDS: levothyroxine 200 mcg Tablet PO (08:46)
[2021-10-21] MEDS: venlafaxine ER (24HR) 150 mg Capsule PO (08:46)
[2021-10-21] MEDS: isosorbide mononitrate ER 30 mg Tablet PO (08:46)
[2021-10-21] MEDS: spironolactone 25 mg Tablet 12.5 MG PO (08:46)
[2021-10-21] MEDS: magnesium sulfate premix 2 GM/50 ML PIGGYBACK IV (09:36)
--- NOTE | 2021-10-21 10:49 | PM.PN ---
Subjective Subjective: She feels lightheaded when she is sitting up, and also standing or walking. States that she has been having some episodes of blacking out at home, but has not told her son. During evaluation by PT noted to be quite orthostatic, blood pressure down into 80s sitting up, and could not be measured standing, she was laid back to bed. She states that this has been going on for some time months perhaps, where during the day she would have to lay down frequently due to feeling woozy . Denies vertigo. Discussed with her concern regarding possible underlying Antemann condition as well other than Cheryl thyroiditis. Thyroid function is normal. She has been complaining of pain in her right shoulder, right thigh. But these appear to be localized. She states shoulder is been hurting since she had walked into a door frame with it. Reports that its been a while back, has not resolved, has seen her primary provider about it. She cannot lift right arm above 90 degrees. Discussed with her shoulder x-ray showed mild AC joint arthritis, but may have adhesive capsulitis. Vitals/I&O/Wt Last Vital Signs Temp 98.1 F 10/21/21 08:00 Pulse 59 L 10/21/21 08:00 Resp 17 10/21/21 08:00 BP 98/63 10/21/21 08:00 Pulse Ox 90 10/21/21 07:33 10/20/21 10/21/21 10/21/21 22:59 06:59 14:59 Intake Total 1000 / 1000 550 / 1550 770 / 770 Output Total 300 / 300 Balance 1000 / 1000 250 / 1250 770 / 770 Weight last 48 hrs Weight 77.564 kg Weight 72.575 kg Physical Exam Const: COMMON NORMALS: alert GENERAL APPEARANCE: cooperative ORIENTATION/CONSCIOUSNESS: Yes awake HENMT: COMMON NORMALS: normocephalic, EAC's normal, Normal external nose present and moist oral mucous membranes HEAD & SCALP: normocephalic NOSE: Normal external nose present EXTERNAL AUDITORY CANAL: EAC's normal Neck/C-Spine: COMMON NORMALS: no meningeal signs Chest: CHEST: Yes Symmetrical chest wall rise Resp: COMMON NORMALS: clear to auscultation bilaterally AUSCULTATION: clear to auscultation bilaterally Cardio: COMMON NORMALS: regular rate, regular rhythm and No murmurs present (Cardio) RATE: regular rate RHYTHM: regular rhythm GI: COMMON NORMALS: Normal to inspection, nondistended, normoactive bowel sounds present, Soft to palpation and non-tender PALPATION: Yes Soft to palpation Extremity: COMMON NORMALS: no pedal edema Neuro: COMMON NORMALS: moves all extremities SENSORIUM/ORIENTATION: Yes alert MENINGEAL SIGNS: Yes no meningeal signs Psych: COMMON NORMALS: mental status grossly normal Skin: COMMON NORMALS: no wounds RASHES: no rashes Data : 10/21/21 02:15 10/21/21 02:15 A&P Assessment and plan (1) Hypotension: Severe orthostatic hypotension, blood pressure also resting is low 98/63, sitting up noted systolic in the 80s, and try to stand blood pressure could not be measured. She was laid back down. Bedrest. Intensive orthostatic precautions. Hold Imdur, spironolactone, these may need to be discontinued given the symptoms appear to have been ongoing for a while and getting worse. Thyroid function is okay. We will check serum cortisol. As she is on the bradycardic side, heart rates in the high 50s, midodrine may not be a good option. Possible contribution of autonomic dysfunction secondary to diabetes. No PE. No suggestion of acute AK. Echocardiogram with normal EF, grade 1 diastolic dysfunction. No R WMA. Attempted to reach son by phone. Status: Acute (2) Syncope: Reports has been having episodes of blacking out, disappears to be getting worse. Hypotension as above. CTA chest and head and neck noncontributory. Normal EF, grade 1 diastolic dysfunction, no R WMA on echo. Mild sinus bradycardia. Status: Acute (3) Acute UTI: Continue ceftriaxone, follow-up urine cultures. Status: Acute (4) Light headedness: Status: Acute (5) Gait instability: PT assessment deferred due to hypotension, reassess once blood pressure is better. Status: Acute (6) Chronic right hip pain: Discussed with her concern for possibility of additional underlying autoimmune condition, although her complaints of pain appears to be localized to the right shoulder with protracted symptoms bothering her after initial injury, as well as right thigh. Right hip x-ray unremarkable. Status: Acute (7) Chronic right shoulder pain: Bothered by chronic symptoms in the right shoulder after initial injury. Shows me the range of motion, states she cannot elevate the right arm above 90 degrees. Possible adhesive capsulitis. Status: Acute (8) Hypothyroidism: Thyroid function WNL. Continue levothyroxine Status: Acute Qualifiers: Hypothyroidism type: acquired Qualified Code(s): E03.9 - Hypothyroidism, unspecified (9) Hyperlipidemia: Status: Acute Qualifiers: Hyperlipidemia type: mixed hyperlipidemia Qualified Code(s): E78.2 - Mixed hyperlipidemia (10) Essential hypertension: Hold antihypertensives Status: Acute (11) Type 2 diabetes mellitus: Hyperglycemia this morning, increase Lantus dose to 15 units. Continue sliding scale insulin. Change diet to consistent carbohydrate. 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 Status: Acute Plan CAD, no chest pain complaints, status post stenting x3, continue aspirin, statin -Telemetry monitoring Ischemic cardiomyopathy, does not look fluid overloaded, will do repeat echocardiogram Right shoulder pain, mild AC arthritis Right hip pain, x-ray no acute findings Lower back pain with lumbar x-rays Chronically elevated LFTs, alk phos, thrombocytopenia, elevated ammonia levels All indicators of liver failure, this is chronic, but worsening, over time, last imaging was in 2019, will do a liver ultrasound -Ferritin, hep panel, NARGIS, liver ultrasound -Ammonia levels 58, mildly elevated, will hold off on lactulose Attestations Medical Necessity Statement*: Continue hospitalization for assessment of management of hypotension, severe orthostatic intolerance, syncope, UTI, hyperglycemia. Coding Level of Care Code Acute Customs Appraiser for Chg Fwd Diagnoses Acute UTI N39.0 Light headedness R42 Gait instability R26.81 Chronic right hip pain M25.551; G89.29 Chronic right shoulder pain M25.511; G89.29 Hypothyroidism E03.9 Hypothyroidism type: acquired Hyperlipidemia E78.2 Hyperlipidemia type: mixed hyperlipidemia Essential hypertension I10 Syncope R55 Hypotension I95.9 Type 2 diabetes mellitus E11.649; Z79.4 Diabetes mellitus complication detail: without coma Diabetes mellitus complication status: with hypoglycemia Diabetes mellitus mcfp insulin use: with mcfp use Hypomagnesemia E83.42
[2021-10-21 11:28] LABS: Glucose Point of Care 200 mg/dL (70-110)
[2021-10-21 11:35] LABS: Cortisol Random 4.15 ug/dL (2.47-19.5)
[2021-10-21] MEDS: insulin lispro 100 unit/1 mL SUBCUT ×2 (12:05→17:29)
[2021-10-21 17:07] LABS: Glucose Point of Care 150 mg/dL (70-110)
[2021-10-21 20:21] LABS: Glucose Point of Care 139 mg/dL (70-110)
[2021-10-21] MEDS: cefTRIAXone 1,000 MG in sodium chloride 0.9% (plus) 50 ML 100 MG IV (23:16)
[2021-10-22] VITALS (11 sets, daily range): BP systolic 95–138; BP diastolic 50–94; PULSE 55–88; RESP 16–19; TEMP 36.3–36.8; O2SAT 90–95
[2021-10-22 05:10] LABS: Basophils # 0.1 10^3/uL (0.0-0.1); Eosinophils # 0.1 10^3/uL (0.0-0.8); Eosinophils % 2.4 %; Hematocrit 37.4 % (37.0-47.0); Hemoglobin 12.2 g/dL (11.5-15.3); Lymphocytes # 2.1 10^3/uL (0.8-4.8); Lymphocytes % 35.7 %; Mean Corpuscular HGB Conc 32.6 g/dL (30.0-36.0); Mean Corpuscular Hemoglobin 29.1 pg (28.0-34.0); Mean Corpuscular Volume 89.3 fl (81-99); Mean Platelet Volume 11.9 fL (7.4-10.4); Monocytes # 0.6 10^3/uL (0.2-0.9); Monocytes % 10.5 %; Neutrophils # 2.88 10^3/uL (1.8-7.7); Neutrophils % 50.2 %; Nucleated Red Blood Cells % 0 %; Platelet Count 60 10^3/cmm (130-400); Red Blood Count 4.19 10^6/uL (4.1-5.3); Red Cell Distribution Width 13.3 % (12.1-15.1); White Blood Count 5.7 10^3/uL (4.0-10.0)
[2021-10-22 05:28] LABS: Alanine Aminotransferase 40 U/L (0-33); Alkaline Phosphatase 113 IU/L (35-105); Anion Gap 11.8 (5-19); Aspartate Amino Transferase 84 U/L (0-32); Blood Urea Nitrogen 8 mg/dL (8-23); Carbon Dioxide 23 mmol/L (22-29); Chloride 100 mmol/L (98-107); Globulin 5.6 g/dL (1.3-4.6); Glomerular Filtration Rate 99.7 mL/min (90-130); Glucose 113 mg/dL (65-115); Magnesium 1.4 mg/dL (1.7-2.3); Osmolality Calculated 271 mOsm/kg (285-295); Phosphorus 3.3 mg/dL (2.5-4.5); Potassium 3.8 mmol/L (3.5-5.1); Sodium 131 mmol/L (136-145); Total Bilirubin 0.8 mg/dL (0.15-1.2); Total Protein 8.6 g/dL (6.6-8.7)
[2021-10-22 06:20] LABS: Glucose Point of Care 103 mg/dL (70-110)
--- NOTE | 2021-10-22 07:00 | PC.NURSE ---
Report from Bekah ACOSTA at this time.
[2021-10-22] MEDS: aspirin 81 mg EC Tablet PO (08:29)
[2021-10-22] MEDS: pantoprazole DR 40 mg Tablet PO (08:29)
[2021-10-22] MEDS: insulin glargine 100 units/1 mL 15 UNIT SUBCUT (08:29)
[2021-10-22] MEDS: levothyroxine 200 mcg Tablet PO (08:29)
[2021-10-22] MEDS: magnesium sulfate premix 4 GM/100 ML PREMIX IV (09:15)
[2021-10-22 12:21] LABS: Glucose Point of Care 168 mg/dL (70-110)
[2021-10-22] MEDS: insulin lispro 100 unit/1 mL SUBCUT (17:22)
--- NOTE | 2021-10-22 17:28 | PM.PN ---
Subjective Subjective: She is not feeling well today. She has been having persistent nausea. Says that things have been spinning in front of her eyes. States that last night she vomited. Also says that food feels like it is stuck in her stomach. Tried walking today, still says cannot walk, not lightheaded, but now feels like things are turning. Vitals/I&O/Wt Last Vital Signs Temp 97.5 F L 10/22/21 15:05 Pulse 63 10/22/21 15:05 Resp 18 10/22/21 15:05 BP 118/50 10/22/21 15:05 Pulse Ox 93 10/22/21 15:05 10/22/21 10/22/21 10/22/21 06:59 14:59 22:59 Intake Total 1470 / 2720 480 / 480 Output Total 1600 / 2300 Balance -130 / 420 480 / 480 Weight last 48 hrs Weight 79.878 kg Weight 77.564 kg Weight 72.575 kg Physical Exam Const: COMMON NORMALS: alert GENERAL APPEARANCE: cooperative ORIENTATION/CONSCIOUSNESS: Yes awake HENMT: COMMON NORMALS: normocephalic, EAC's normal, Normal external nose present and moist oral mucous membranes HEAD & SCALP: normocephalic NOSE: Normal external nose present EXTERNAL AUDITORY CANAL: EAC's normal Neck/C-Spine: COMMON NORMALS: no meningeal signs Chest: CHEST: Yes Symmetrical chest wall rise Resp: COMMON NORMALS: clear to auscultation bilaterally AUSCULTATION: clear to auscultation bilaterally Cardio: COMMON NORMALS: regular rate, regular rhythm and No murmurs present (Cardio) RATE: regular rate RHYTHM: regular rhythm GI: COMMON NORMALS: Normal to inspection, nondistended, normoactive bowel sounds present, Soft to palpation and non-tender PALPATION: Yes Soft to palpation Extremity: COMMON NORMALS: no pedal edema Neuro: COMMON NORMALS: moves all extremities SENSORIUM/ORIENTATION: Yes alert MENINGEAL SIGNS: Yes no meningeal signs COORDINATION/BALANCE: dvotoe-mj-kgnl test normal (But slow) and nwow-py-sczl test normal SENSORY EXAM: Yes extremities (Symmetrical) and Normal double simultaneous stimulation for sensation MOTOR EXAM: Other motor observations present (Limited exam due to right shoulder immobility, no drift on L) COORDINATION: ydkqzt-gn-kfym test normal (But slow) and bksl-ye-fias test normal OTHER: Following directions. Tracking, denies vertigo. Denies horizontal or vertical diplopia. Visual so full to confrontation. Psych: COMMON NORMALS: mental status grossly normal Skin: COMMON NORMALS: no wounds RASHES: no rashes Data : 10/22/21 04:45 10/22/21 04:45 A&P Assessment and plan (1) Gait instability: Today she reports persistent vertigo, nausea, vomiting, although appears did quite well with physical therapy. Orthostasis significantly improved with discontinuation of Imdur, spironolactone. As she reports persistently bothersome symptoms we will additionally assess by MRI brain to exclude posterior circulation infarction especially with episodes of hypotension which may be detrimental. In case unremarkable she then likely may be able to return homewith home exercise program and outpatient follow-up. Discussed with her and her son at bedside during second visit also regarding noted ventriculomegaly on CT head, and with unsteady gait could raise concern for NPH. Son reports past history of water on the brain , and she seems to remember having to have a tap in the past. She has not been following up with regards to this for a while. Encouraged to follow-up with neurology after discharge for additional assessment for possibility of NPH and with reported prior history of hydrocephalus. Status: Acute (2) Hypotension: So far improved. Maintain isolation precautions. Consider recheck orthostatics prior to discharge. Hold Imdur, spironolactone, these may need to be discontinued given the symptoms appear to have been ongoing for a while and getting worse. Thyroid function is okay. Serum cortisol somewhat underwhelming at 4.15, in case of recurrence of hypotension/orthostasis consider ACTH stim test. Possible contribution of autonomic dysfunction secondary to diabetes. As she is on the bradycardic side, heart rates in the high 50s, midodrine may not be a good option. No PE. No suggestion of acute WI. Echocardiogram with normal EF, grade 1 diastolic dysfunction. No R WMA. Discussed with son at bedside. Status: Acute (3) Nausea and vomiting: Blood pressures have now been better. However, reports persistent nausea, reports also protracted vertigo, and that food is getting stuck in her stomach. Nausea and vomiting could be secondary to vertigo, although could also have concomitant gastroparesis with diabetes. Discussed with her and her son. Consider assessment by gastric emptying study once not vomiting anymore. Status: Acute (4) Syncope: Reports has been having episodes of blacking out, disappears to be getting worse. Hypotension as above. CTA chest and head and neck noncontributory. Normal EF, grade 1 diastolic dysfunction, no R WMA on echo. Mild sinus bradycardia. Status: Acute (5) Acute UTI: Empiric antibiotic as urine culture is not available. Status: Acute (6) Light headedness: On admit reported lightheaded when she is sitting up, and also standing or walking.? States that she has been having some episodes of blacking out at home, but has not told her son. Stated that this has been going on for some time months perhaps, where during the day she would have to lie down in bed frequently due to feeling woozy . Initially denied vertigo, but today reporting persistent vertigo as well. Status: Acute (7) Chronic right shoulder pain: Bothered by chronic symptoms in the right shoulder after initial injury. Shows me the range of motion, states she cannot elevate the right arm above 90 degrees. Possible adhesive capsulitis. Follow-up as outpatient. Status: Acute (8) Chronic right hip pain: Discussed with her concern for possibility of additional underlying autoimmune condition, although her complaints of pain appears to be localized to the right shoulder with protracted symptoms bothering her after initial injury, as well as right thigh. Right hip x-ray unremarkable. Status: Acute (9) Hypothyroidism: Thyroid function WNL. Continue levothyroxine Status: Acute Qualifiers: Hypothyroidism type: acquired Qualified Code(s): E03.9 - Hypothyroidism, unspecified (10) Hyperlipidemia: Status: Acute Qualifiers: Hyperlipidemia type: mixed hyperlipidemia Qualified Code(s): E78.2 - Mixed hyperlipidemia (11) Essential hypertension: Hold antihypertensives Status: Acute (12) Type 2 diabetes mellitus: Hyperglycemia better with Lantus dose to 15 units. Continue sliding scale insulin. Change diet to consistent carbohydrate. Status: Acute Qualifiers: Diabetes mellitus complication detail: without coma Diabetes mellitus complication status: with hypoglycemia Diabetes mellitus manager intermediate insulin use: with manager intermediate use Qualified Code(s): E11.649 - Type 2 diabetes mellitus with hypoglycemia without coma; Z79.4 - MCFP (current) use of insulin (13) Hypomagnesemia: Had to be given additional replacement. Recheck again. Status: Acute (14) Cerebral ventriculomegaly: Incidentally noted on CT. Discussed with her and her son at bedside during second visit also regarding noted ventriculomegaly on CT head, and with unsteady gait could raise concern for NPH. Son reports past history of water on the brain , and she seems to remember having to have a tap in the past. She has not been following up with regards to this for a while. Encouraged to follow-up with neurology after discharge for additional assessment for possibility of NPH and with reported prior history of hydrocephalus. Status: Acute Plan CAD, no chest pain complaints, status post stenting x3, continue aspirin, statin -Telemetry monitoring Ischemic cardiomyopathy, does not look fluid overloaded, will do repeat echocardiogram Lower back pain: Unremarkable lumbar x-rays Chronically elevated LFTs, alk phos, thrombocytopenia, elevated ammonia levels All indicators of liver failure, this is chronic, but worsening, over time, last imaging was in 2019, liver ultrasound with steatohepatitis. Appears to have CAREY with possible progression to fibrosis or cirrhosis. However, does have history of Cheryl thyroiditis. Possibility of autoimmune hepatitis will need to be excluded. Attestations Medical Necessity Statement*: Continue admission for assessment management of vertigo, nausea and vomiting, multiple recent falls. Reassessment of severe orthostatic hypotension. Coding Level of Care Code Acute Tumbling Machine Operator for Chg Fwd Diagnoses Hypotension I95.9 Syncope R55 Acute UTI N39.0 Light headedness R42 Gait instability R26.81 Chronic right hip pain M25.551; G89.29 Chronic right shoulder pain M25.511; G89.29 Hypothyroidism E03.9 Hypothyroidism type: acquired Hyperlipidemia E78.2 Hyperlipidemia type: mixed hyperlipidemia Essential hypertension I10 Type 2 diabetes mellitus E11.649; Z79.4 Diabetes mellitus complication detail: without coma Diabetes mellitus complication status: with hypoglycemia Diabetes mellitus manager intermediate insulin use: with intermediate use Hypomagnesemia E83.42 Cerebral ventriculomegaly G93.89 Nausea and vomiting R11.2
--- NOTE | 2021-10-22 19:01 | PC.NURSE ---
Patient's cell phone was found in the ER and was brought up to the patient.
[2021-10-22] MEDS: trazodone 100 mg Tablet PO (20:04)
[2021-10-22] MEDS: TRAMadol 50 mg Tablet PO (20:04)
[2021-10-22 20:55] LABS: Glucose Point of Care 242 mg/dL (70-110)
[2021-10-22] MEDS: cefTRIAXone 1,000 MG in sodium chloride 0.9% (plus) 50 ML 100 MG IV (22:20)
[2021-10-23] VITALS (8 sets, daily range): BP systolic 86–122; BP diastolic 48–76; PULSE 50–60; RESP 12–16; TEMP 36.5–36.6; O2SAT 93–96
[2021-10-23] MEDS: enoxaparin 40 mg/0.4 mL Syringe SUBCUT (00:02)
--- NOTE | 2021-10-23 02:45 | PC.NURSE ---
BSC/HOT FEELING Was up to BSC with assist. Did well and denied dizziness. On return to bed started feeling hot. Did her own BS check with her implanted device and was 106. BP checked and was 98/61. Says she sometimes has hot flashes Says hormones discontinued last year and has had since
[2021-10-23 05:12] LABS: Basophils % 0.8 %; Eosinophils # 0.2 10^3/uL (0.0-0.8); Eosinophils % 3.3 %; Hematocrit 37.6 % (37.0-47.0); Hemoglobin 12.3 g/dL (11.5-15.3); Lymphocytes % 38.7 %; Mean Corpuscular HGB Conc 32.7 g/dL (30.0-36.0); Mean Corpuscular Hemoglobin 29.1 pg (28.0-34.0); Mean Corpuscular Volume 88.9 fl (81-99); Mean Platelet Volume 11.8 fL (7.4-10.4); Monocytes # 0.7 10^3/uL (0.2-0.9); Monocytes % 13.3 %; Neutrophils # 2.23 10^3/uL (1.8-7.7); Neutrophils % 43.7 %; Nucleated Red Blood Cells % 0 %; Platelet Count 60 10^3/cmm (130-400); Red Blood Count 4.23 10^6/uL (4.1-5.3); Red Cell Distribution Width 13.5 % (12.1-15.1); White Blood Count 5.1 10^3/uL (4.0-10.0)
[2021-10-23 05:29] LABS: Alanine Aminotransferase 39 U/L (0-33); Albumin Level 3.1 g/dL (3.5-5.2); Alkaline Phosphatase 108 IU/L (35-105); Aspartate Amino Transferase 83 U/L (0-32); Blood Urea Nitrogen 9 mg/dL (8-23); Calcium 7.9 mg/dL (8.5-10.5); Carbon Dioxide 25 mmol/L (22-29); Chloride 102 mmol/L (98-107); Globulin 5.3 g/dL (1.3-4.6); Glomerular Filtration Rate 99.7 mL/min (90-130); Glucose 120 mg/dL (65-115); Magnesium 1.8 mg/dL (1.7-2.3); Osmolality Calculated 278 mOsm/kg (285-295); Phosphorus 3.8 mg/dL (2.5-4.5); Sodium 134 mmol/L (136-145); Total Bilirubin 0.7 mg/dL (0.15-1.2); Total Protein 8.4 g/dL (6.6-8.7)
--- NOTE | 2021-10-23 05:53 | PC.NURSE ---
SHIFT SUMMARY Has had a good night. Some unsteadiness when up to BSC but says dizziness has improved. Is hoping she gets to go home today. Had some nausea at beginning of night but since has not c/o any and has eaten snacks. IV antibiotics given. Does c/o some right shoulder pain when she moves her arm but says pain is really not anything new
[2021-10-23 06:29] LABS: Glucose Point of Care 108 mg/dL (70-110)
[2021-10-23 08:04] LABS: Glucose Point of Care 91 mg/dL (70-110)
[2021-10-23 08:04] LABS: Glucose Point of Care 92 mg/dL (70-110)
[2021-10-23] MEDS: insulin glargine 100 units/1 mL 15 UNIT SUBCUT (08:11)
[2021-10-23] MEDS: aspirin 81 mg EC Tablet PO (08:11)
[2021-10-23] MEDS: levothyroxine 200 mcg Tablet PO (08:11)
[2021-10-23] MEDS: pantoprazole DR 40 mg Tablet PO (08:11)
[2021-10-23] MEDS: venlafaxine ER (24HR) 150 mg Capsule PO (08:11)
--- NOTE | 2021-10-23 09:30 | MR_ITS ---
WS: [id number] MRI BRAIN WITHOUT CONTRAST HISTORY: persistent vertigo, assess for post circulation CVA. COMPARISON: Noncontrast CT head 10/20/2021 TECHNIQUE: Diffusion imaging, multiplanar T1, T2 and FLAIR imaging obtained. Quality of this examination is degraded by motion artifact. No evidence for acute infarct or hemorrhage. Moralez-white matter differentiation is normal. Mild atrophy and mild periventricular white matter ischemic disease. Small infarcts may be obscured b y the amount of motion artifact. Ventricles are dilated which is slightly out of proportion to the amount of atrophy. There is mild cornelio wing and thinning of the corpus callosum. Possibility of early normal pressure hydrocephalus should b e considered. No transependymal CSF. No inferior displacement of cerebellar tonsils. The sella turcica and pituitary gland are unremarkabl e. Dural venous sinuses and [place] of [place] demonstrate no abnormality on this unenhanced studies. Paranasal sinuses: Clear. Mastoid air cells: Normal. Calvarium and scalp: Intact. MR/MR head wo con* [id number] IMPRESSION: 1. No acute infarct identified. MRI examination is limited by motion artifact. 2. Mild ventricular dilatation. May be on the basis of normal pressure hydroce phalus. Ventricular dilatation appears out of proportion to the amount of white matter disease and atrophy. 3. Mild small vessel ischemic disease.
[2021-10-23 11:37] LABS: Glucose Point of Care 152 mg/dL (70-110)
--- NOTE | 2021-10-23 13:03 | P.DS_ITS ---
Discharge Providers Date of Admission: 10/20/21 22:03 Date of Discharge: October 23, 2021 Attending Provider at Admission: Ollie Azar MD Attending Provider at Discharge: Ollie Azar MD Primary Care Provider: Sara Montenegro DO Diagnoses at Discharge Discharge Diagnosis (1) Gait instability: Status: Acute (2) Hypotension: Status: Acute (3) Nausea and vomiting: Status: Acute (4) Syncope: Status: Acute (5) Acute UTI: Status: Acute (6) Light headedness: Status: Acute (7) Chronic right shoulder pain: Status: Acute (8) Chronic right hip pain: Status: Acute (9) Hypothyroidism: Status: Acute Qualifiers: Hypothyroidism type: acquired Qualified Code(s): E03.9 - Hypothyroidism, unspecified (10) Hyperlipidemia: Status: Acute Qualifiers: Hyperlipidemia type: mixed hyperlipidemia Qualified Code(s): E78.2 - Mixed hyperlipidemia (11) Essential hypertension: Status: Acute (12) Type 2 diabetes mellitus: Status: Acute Qualifiers: Diabetes mellitus complication detail: without coma Diabetes mellitus complication status: with hypoglycemia Diabetes mellitus retirement insulin use: with intermission coordinator use Qualified Code(s): E11.649 - Type 2 diabetes mellitus with hypoglycemia without coma; Z79.4 - [facility] (current) use of insulin (13) Hypomagnesemia: Status: Acute (14) Cerebral ventriculomegaly: Status: Acute Reason for Visit Reason for Visit: N/V/WEAKNESS Hospital Course Hospital Course Luh Ray is a 66 year old female with a past medical history of CAD status post stenting x3, history of systolic CHF secondary to ischemic cardiomyopathy, COPD, BRYN, hypertension, hypothyroidism, anxiety and depression, history of chronic transaminitis, chronic thrombocytopenia, who presents [facility] for syncopal episode, unsteadiness, dizziness, Syncopal episode, likely second orthostatic, orthostatic positive received IV antibiotic therapy, fluid hydration therapy. Orthostatic vitals resolved, a mbulating without significant symptomatology, discharged on 3 remaining days of antibiotic therapy, blood pressure medications discontinued on discharge UTI, discharged with antibiotic therapy as Gait instability, likely secondary to orthostatic hypotension, MRI of the brain ordered 1.? No acute infarct identified. MRI examination is limited by motion artifact. 2.? Mild ventricular dilatation. May be on the basis of normal pressure hydrocephalus. Ventricular dilatation appears out of proportion to the amount of white matter disease and atrophy. 3.? Mild small vessel ischemic disease. we will have patient follow-up with neurology as outpatient for consideration of normal pressure hydrocephalus as an etiology Multiple joint pains including right shoulder pain, right hip pain, not improving with conservative interventions, discharged with follow-up with rheumatology as outpatient Patient was also found to have acute on chronic thrombocytopenia, elevated LFTs, liver ultrasound showing steatohepatitis. Refer to gastroenterology as outpatient Physical Exam Const: COMMON NORMALS: no acute distress and patient oriented x3 Resp: COMMON NORMALS: normal respiratory effort, No retractions, No use of acc essory muscles and clear to auscultation bilaterally AUSCULTATION: clear to auscultation bilaterally Cardio: COMMON NORMALS: regular rate, regular rhythm, S1 normal heart sound present and S2 normal heart sound present RATE: regular rate RHYTHM: regular rhythm HEART SOUNDS: S1 normal heart sound present and S2 normal heart sound present GI: COMMON NORMALS: Normal to inspection, nondistended, normoactive bowel sounds present, Soft to palpation and non-tender PALPATION: Yes Soft to palpation Extremity: COMMON NORMALS: no calf tenderness and no pedal edema Neuro: COMMON NORMALS: patient oriented x3 Psych: COMMON NORMALS: mental status grossly normal Discharge Data Studies Completed and Pending Completed Studies During Hospitalization Category Date Time Status CT head wo con* [id number] Urgent Cat Scan 10/20/21 19:54 Completed CTA chest [CT angio chest PE protcl [id number]] Urgent Cat Scan 10/20/21 22:01 Completed CTA head neck [CT angio headneck* [id number]] Urgent Cat Scan 10/20/21 21:01 Completed XR chest 1V portable [id number] Stat Exams 10/20/21 19:54 Completed XR lumbar spine 2-3V* [id number] Routine Exams 10/21/21 00:21 Completed CV. echo complete* [id number] Routine Ultrasound 10/21/21 00:21 Completed US liver [id number] Routine Ultrasound 10/21/21 00:21 Completed Pending at discharge Category Date Time Status NARGIS Profile Rheumatology Stat Lab 10/20/21 23:21 Received Complete Blood Count w/Auto AM LABS Lab 10/24/21 04:00 Ordered Comprehensive Metabolic Panel AM LABS Lab 10/24/21 04:00 Ordered Smooth Muscle AB Screen w/Refl Routine Lab 10/22/21 21:39 Received MR head wo con* [id number] Routine MRI 10/23/21 09:30 Ordered Radiology Impressions Chest X-Ray 10/20/21 19:54 IMPRESSION: No acute findings. Head CT 10/20/21 19:54 IMPRESSION: No acute intracranial abnormality. Head/Neck CTA 10/20/21 21:01 IMPRESSION: No large vessel stenosis or occlusion. IMPRESSION: No significant stenosis or occlusion of the neck arteries. REFERENCES: NASCET CRITERIA. The degree of internal carotid artery stenosis is based on NASCET criteria. Normal is no stenosis. Mild is less than 50% stenosis. Moderate is 50-69% stenosis. Severe is 70% to 99% stenosis. Total occlusion is no detectable patent lumen. Chest CTA 10/20/21 22:01 IMPRESSION: No pulmonary embolism. Liver Ultrasound 10/21/21 00:21 IMPRESSION: 1. Cholecystectomy. 2. Fatty liver. Lumbar Spine X-Ray 10/21/21 00:21 IMPRESSION: There are no acute osseous findings. Laboratory Results WBC 5.1 10^3/uL (4.0-10.0) 10/23/21 04:47 RBC 4.23 10^6/uL (4.1-5.3) 10/23/21 04:47 Hgb 12.3 g/dL (11.5-15.3) 10/23/21 04:47 Hct 37.6 % (37.0-47.0) 10/23/21 04:47 MCV 88.9 fl (81-99) 10/23/21 04:47 MCH 29.1 pg (28.0-34.0) 10/23/21 04:47 MCHC 32.7 g/dL (30.0-36.0) 10/23/21 04:47 RDW 13.5 % (12.1-15.1) 10/23/21 04:47 Plt Count 60 10^3/cmm (130-400) L 10/23/21 04:47 MPV 11.8 fL (7.4-10.4) H 10/23/21 04:47 Neut % (Auto) 43.7 % 10/23/21 04:47 Lymph % (Auto) 38.7 % 10/23/21 04:47 [place] % (Auto) 13.3 % 10/23/21 04:47 Eos % (Auto) 3.3 % 10/23/21 04:47 Baso % (Auto) 0.8 % 10/23/21 04:47 Neut # (Auto) 2.23 10^3/uL (1.8-7.7) 10/23/21 04:47 Lymph # (Auto) 2.0 10^3/uL (0.8-4.8) 10/23/21 04:47 [place] # (Auto) 0.7 10^3/uL (0.2-0.9) 10/23/21 04:47 Eos # (Auto) 0.2 10^3/uL (0.0-0.8) 10/23/21 04:47 Baso # (Auto) 0.0 10^3/uL (0.0-0.1) 10/23/21 04:47 Nucleated RBC % (auto) 0 % 10/23/21 04:47 Nucleated RBCs # 0.0 /100WBC 10/23/21 04:47 D-Dimer 0.70 ug/mIFEU (0-0.59) H 10/20/21 20:07 Sodium 134 mmol/L (136-145) L 10/23/21 04:47 Potassium 4.0 mmol/L (3.5-5.1) 10/23/21 04:47 Chloride 102 mmol/L (98-107) 10/23/21 04:47 Carbon Dioxide 25 mmol/L (22-29) 10/23/21 04:47 Anion Gap 11.0 (5-19) 10/23/21 04:47 BUN 9 mg/dL (8-23) 10/23/21 04:47 Creatinine 0.6 mg/dL (0.5-0.9) 10/23/21 04:47 GFR Calculation 99.7 mL/min (90-130) 10/23/21 04:47 Glucose 120 mg/dL (65-115) H 10/23/21 04:47 POC Glucose 152 mg/dL (70-110) H 10/23/21 10:50 Calculated Osmolality 278 mOsm/kg (285-295) L 10/23/21 04:47 Calcium 7.9 mg/dL (8.5-10.5) L 10/23/21 04:47 Phosphorus 3.8 mg/dL (2.5-4.5) 10/23/21 04:47 Magnesium 1.8 mg/dL (1.7-2.3) 10/23/21 04:47 Ferritin 27 ng/mL (15-150) 10/21/21 02:15 Total Bilirubin 0.7 mg/dL (0.15-1.2) 10/23/21 04:47 AST 83 U/L (0-32) H 10/23/21 04:47 ALT 39 U/L (0-33) H 10/23/21 04:47 Alkaline Phosphatase 108 IU/L (35-105) H 10/23/21 04:47 Ammonia 58 umol/L (11-51) H 10/20/21 20:07 Troponin T Baseline 8 ng/L (0-10) 10/20/21 20:07 Troponin T 120 Minute 9.03 ng/L (0-10) 10/20/21 22:15 Delta Troponin T Not Reportable 10/20/21 22:15 Troponin T Hi Sens 6Hr 8.20 ng/L (0-10) 10/21/21 02:15 Troponin T Hi Sens 6Hr Delta Not Reportable 10/21/21 02:15 Total Protein 8.4 g/dL (6.6-8.7) 10/23/21 04:47 Albumin 3.1 g/dL (3.5-5.2) L 10/23/21 04:47 Globulin 5.3 g/dL (1.3-4.6) H 10/23/21 04:47 Lipase 64 U/L (13-60) H 10/20/21 20:07 TSH 0.86 uIU/mL (0.27-4.20) 10/20/21 20:07 Free T4 1.76 ng/dL (0.82-1.77) 10/20/21 20:07 Random Cortisol 4.15 ug/dL (2.47-19.5) 10/21/21 02:15 Urine Color Yellow (Yellow) 10/20/21 21:37 Urine Appearance Sl hazy (CLEAR) 10/20/21 21:37 Urine pH 7 (5-7) 10/20/21 21:37 Ur Specific [place] 1.005 (1.005-1.030) 10/20/21 21:37 Urine Protein Neg (Negative) 10/20/21 21:37 Urine Glucose (UA) Norm (Normal) 10/20/21 21:37 Urine Ketones Negative (Negative) 10/20/21 21:37 Urine Blood Neg (Negative) 10/20/21 21:37 Urine Nitrate Negative (Negative) 10/20/21 21:37 Urine Bilirubin 1+ (Negative) H 10/20/21 21:37 Urine Urobilinogen Norm mg/dL (Negative) 10/20/21 21:37 Ur Leukocyte Esterase 1+ (Negative) H 10/20/21 21:37 Urine RBC 0-4 /hpf (0-2) H 10/20/21 21:37 Urine WBC 25-40 /hpf (0-5) H 10/20/21 21:37 Ur Squamous Epith Cells 25-40 /hpf (0-5) H 10/20/21 21:37 Amorphous Sediment Not Reportable 10/20/21 21:37 Urine Bacteria 4+ /hpf (NONE) H 10/20/21 21:37 Salicylates < 0.3 mg/dL (3-10) L 10/20/21 20:07 Acetaminophen < 5.0 ug/mL (10-30) L 10/20/21 20:07 Vitals Last Vital Signs Temp 98 F 10/23/21 11:52 Pulse 57 L 10/23/21 11:52 Resp 13 10/23/21 11:52 BP 114/72 10/23/21 11:52 Pulse Ox 93 10/23/21 11:52 Discharge Plan Discharge Patient Disposition: Home Condition: Stable Prescriptions: New cefdinir 300 mg capsule 300 mg PO BID 3 Days Qty: 6 0RF Continued aspirin 81 mg tablet,delayed release (DR/EC) 81 mg PO DAILY 0RF folicall 2 cap PO DAILY 0RF (DME) FreeStyle Test Strip See Rx Instructions .Route 0RF Rx Instructions: As directed (DME) insulin needles (disposable) 30 X 3/4 needle See Rx Instructions .Route 0RF Rx Instructions: As directed (DME) blood-glucose meter [FreeStyle [place] Lite] Kit See Rx Instructions .Route Qty: 1 0RF Rx Instructions: As directed (DME) pen needle, diabetic [TechLITE Pen Needle] 31 gauge x 3/16 needle See Rx Instructions .Route Qty: 120 11RF Rx Instructions: uses 4 times daily with insulin 30 day supply pantoprazole [Protonix] 40 mg tablet,delayed release (DR/EC) 40 mg PO DAILY Qty: 90 3RF atorvastatin 40 mg tablet 40 mg PO DAILY Qty: 90 3RF levothyroxine 200 mcg tablet 200 mcg PO DAILY Qty: 30 1RF trazodone 100 mg tablet See Rx Instructions .ROUTE .COMPLEX Qty: 30 2RF Dose Instruction: TAKE 1 TABLET BY MOUTH AT BEDTIME Rx Instructions: TAKE 1 TABLET BY MOUTH AT BEDTIME Tresiba FlexTouch U-200 200 unit/mL (3 mL) insulin pen See Rx Instructions .ROUTE .COMPLEX Qty: 9 0RF Dose Instruction: INJECT 35 UNITS (0.175 ML) UNDER THE SKIN (SUBCUTANOUSLY) DAILY Rx Instructions: INJECT 35 UNITS (0.175 ML) UNDER THE SKIN (SUBCUTANOUSLY) DAILY tramadol 50 mg tablet 50 mg PO .po q hs Qty: 7 0RF (DME) FreeStyle Rox 14 Day Sensor Kit See Rx Instructions .Route Qty: 2 5RF Rx Instructions: As directed fluticasone propionate [Flonase Allergy Relief] 50 mcg/actuation [place],Suspension 2 spray INTRANASAL DAILY 0RF fluticasone propion-salmeterol [Advair Diskus] 250-50 mcg/dose blister with device 1 inh INHALATION BID Qty: 60 0RF albuterol sulfate 90 mcg/actuation HFA aerosol inhaler 2 inh INHALATION Q4H PRN (Reason: shortness of breath or wheezing) Qty: 18 0RF ondansetron 4 mg tablet,disintegrating 4 mg PO Q6H PRN (Reason: nausea and vomiting) Qty: 14 0RF potassium chloride 10 mEq capsule, extended release 10 meq PO DAILY 0RF Changed insulin lispro [Humalog KwikPen Insulin] 100 unit/mL insulin pen 5 unit SUBCUT TID Qty: 15 2RF Discontinued spironolactone 25 mg tablet 12.5 mg PO DAILY Qty: 90 3RF naproxen 375 mg tablet 375 mg PO BID PRN (Reason: pain) 10 Days Qty: 14 0RF isosorbide mononitrate 30 mg tablet extended release 24 hr 30 mg PO DAILY 90 Days Qty: 90 3RF meloxicam [Mobic] 15 mg tablet 15 mg PO DAILY Qty: 90 0RF Discharge Orders: Discharge Order (Routine); Ordered 10/23/21 Ordered By: Ollie Azar Referrals: Pedro Pickens MD [Physician] - 1 month (RHEUMATOID) Dari Sheridan MD [Physician] - 1 month (PLEASE CALL WITH APPOINTMENT) Gavino Drummond DO [Referring] - 1 month (LIVER CIROHOSIS) Sara Montenegro DO [Primary Care Provider] - 10/24/21 11:00 am Discharge Diet: Cardiac Discharge Activity: Resume usual activity Patient Instructions: Opioid Safety Activity Restrictions/Additional Instructions: - Please discontinue blood pressure medications due to orthostatic hypotension -Monitor blood pressure as outpatient -For multiple joint pains follow-up with rheumatology -For liver dysfunction follow-up with gastroenterology -Ambulate with care -Please have recurrent lightheadedness dizziness with emergency room Discharge Attestations Time Spent in Discharge Care*: less than 30 min Quality Metrics Clinical Quality Measures [ No reported AMI, CVA or VTE this stay] Coding Level of Care Code Acute Chg FW DC note Exam Detailed Diagnoses Gait instability R26.81 Hypotension I95.9 Nausea and vomiting R11.2 Syncope R55 Acute UTI N39.0 Light headedness R42 Chronic right shoulder pain M25.511; G89.29 Chronic right hip pain M25.551; G89.29 Hypothyroidism E03.9 Hypothyroidism type: acquired Hyperlipidemia E78.2 Hyperlipidemia type: mixed hyperlipidemia Essential hypertension I10 Type 2 diabetes mellitus E11.649; Z79.4 Diabetes mellitus complication detail: without coma Diabetes mellitus complication status: with hypoglycemia Diabetes mellitus retirement insulin use: with retirement use Hypomagnesemia E83.42 Cerebral ventriculomegaly G93.89
[2021-10-23 14:32] LABS: COMPLEMENT, TOTAL (CH50) 18 U/mL (31-60)
[2021-10-23 15:37] LABS: COMPLEMENT COMPONENT C3C 97 mg/dL (83-193); COMPLEMENT COMPONENT C4C 5 mg/dL (15-57)
[2021-10-24 15:27] LABS: CENTROMERE B ANTIBODY <1.0 NEG AI (<1.0 NEG); JO-1 ANTIBODY <1.0 NEG AI (<1.0 NEG); RNP ANTIBODY <1.0 NEG AI (<1.0 NEG); SCL-70 ANTIBODY <1.0 NEG AI (<1.0 NEG); SJOGREN'S ANTIBODY (SS-A) <1.0 NEG AI (<1.0 NEG); SM ANTIBODY <1.0 NEG AI (<1.0 NEG); SS-B <1.0 NEG AI (<1.0 NEG)
[2021-10-25 12:52] LABS: ANA PATTERN Nuclear, Homogeneous; ANA SCREEN, IFA POSITIVE (NEGATIVE)
[2021-10-25 16:37] LABS: THYROID PEROXIDASE ANTIBODIES 149 IU/mL (<9)
[2021-10-26 15:36] LABS: Smooth Muscle Ab Screen NEGATIVE (NEGATIVE)
[2021-10-27 15:42] LABS: DNA AB (DS) CRITHIDIA,IFA POSITIVE (NEGATIVE)
== END 2021-10-23 15:57 | disposition home or self-care (01) ==
LOC: ER 22:30 → MEDSURG 22:37
PROVIDERS: Internal Medicine; Admitting Provider Family Medicine; Emergency Provider Emergency Medicine; PCP Family Medicine; Visit Provider Family Medicine
DX: N39.0 Urinary tract infection, site not specified (principal); R26.81 Unsteadiness on feet; I95.9 Hypotension, unspecified; R11.2 Nausea with vomiting, unspecified; R55 Syncope and collapse; R42 Dizziness and giddiness; M25.511 Pain in right shoulder; G89.29 Other chronic pain; E03.9 Hypothyroidism, unspecified; E78.2 Mixed hyperlipidemia; E11.649 Type 2 diabetes mellitus with hypoglycemia without coma; Z79.4 Long term (current) use of insulin; I10 Essential (primary) hypertension; E83.42 Hypomagnesemia; G93.89 Other specified disorders of brain; I25.10 Atherosclerotic heart disease of native coronary artery without angina pectoris; Z95.5 Presence of coronary angioplasty implant and graft; J44.9 Chronic obstructive pulmonary disease, unspecified; G47.33 Obstructive sleep apnea (adult) (pediatric); Z90.49 Acquired absence of other specified parts of digestive tract; K76.0 Fatty (change of) liver, not elsewhere classified; Z79.82 Long term (current) use of aspirin; F17.210 Nicotine dependence, cigarettes, uncomplicated; Z66 Do not resuscitate
CPT/HCPCS: 36415; 36416; 70450; 70496; 70498; 70551; 71045; 71275; 72100; 76705; 80053; 80307; 81001; 82140; 82533; 82728; 82962; 83516; 83690; 83735; 84100; 84439; 84443; 84484; 85025; 85378; 86160; 86162; 86235; 86255; 86376; 93005; 93306; 96365; 96366; 96367; 96372; 96375; 97116; 97161; 97165; 97530; 99285; G0378; J0696; J1650; J1815 ×2; J2405; J3475; J7030; J7040; Q9967

== ENCOUNTER → 2021-11-08 13:12 | Outpatient (BNVA) | payer MEDICARE, MEDICAID, SELFPAY | PROVIDERS: PCP Family Medicine; Referring Provider Family Medicine; Visit Provider Nurse Practitioner | DX: G93.89 Other specified disorders of brain (principal); R26.89 Other abnormalities of gait and mobility; R42 Dizziness and giddiness | CPT/HCPCS: 99204 ==

== ENCOUNTER → 2021-11-23 12:06 | Outpatient (BNVA) | payer MEDICARE, MEDICAID, SELFPAY | PROVIDERS: PCP Family Medicine; Visit Provider Family Medicine | DX: R23.3 Spontaneous ecchymoses (principal) | CPT/HCPCS: 85025 ==

== ENCOUNTER 2021-11-29 11:42 | Outpatient (CLI) | payer MEDICARE, MEDICAID, SELFPAY | END 2021-11-29 11:43 | disposition home or self-care (01) | LOC: LAB 11:48 | PROVIDERS: PCP Family Medicine; Visit Provider Internal Medicine Hematology & Oncology | DX: D69.6 Thrombocytopenia, unspecified (principal) | CPT/HCPCS: 85025 ==

== ENCOUNTER 2021-11-29 13:02 | Outpatient (RCR) | payer MEDICARE, SELFPAY | END 2021-12-12 23:00 | disposition home or self-care (01) | LOC: SPT 13:02 | PROVIDERS: PCP Family Medicine; Referring Provider Family Medicine; Visit Provider Family Medicine | DX: M25.511 Pain in right shoulder (principal); G89.29 Other chronic pain | CPT/HCPCS: 97162 ==

== ENCOUNTER 2021-12-18 07:00 | Oncology outpatient (recurring) (ONCR) | payer MEDICARE, MEDICAID, SELFPAY ==
[2021-11-29 12:53] LABS: Basophils # 0.1 10^3/uL (0.0-0.1); Basophils % 1.2 %; Eosinophils # 0.3 10^3/uL (0.0-0.8); Eosinophils % 5.8 %; Hematocrit 35.6 % (37.0-47.0); Lymphocytes # 1.3 10^3/uL (0.8-4.8); Lymphocytes % 25.5 %; Mean Corpuscular HGB Conc 33.7 g/dL (30.0-36.0); Mean Corpuscular Hemoglobin 29.6 pg (28.0-34.0); Mean Corpuscular Volume 87.7 fl (81-99); Mean Platelet Volume 11.8 fL (7.4-10.4); Monocytes # 0.7 10^3/uL (0.2-0.9); Monocytes % 14.3 %; Neutrophils # 2.74 10^3/uL (1.8-7.7); Neutrophils % 52.8 %; Nucleated Red Blood Cells % 0 %; Platelet Count 58 10^3/cmm (130-400); Red Blood Count 4.06 10^6/uL (4.1-5.3); Red Cell Distribution Width 13.8 % (12.1-15.1); White Blood Count 5.2 10^3/uL (4.0-10.0)
--- NOTE | 2021-12-18 07:00 | US_ITS ---
WS: [id number] ABDOMINAL ULTRASOUND REASON FOR EXAM: Special attention to liver and spleen TECHNIQUE: Grayscale and Doppler ultrasound examination of the abdomen. FINDINGS: Pancreas: Nonvisualized due to overlying bowel gas. Abdominal aorta and IVC: Normal aorta without aneurysmal dilatation. IVC is normal diameter. Liver: Liver measures 13.7 cm in length. Increased inhomogeneous echotexture. No focal lesion identif ied. Patent portal vein. Gallbladder: Post cholecystectomy. Normal common bile duct. Left kidney: Left kidney measures 12.4 cm x 5.3 cm x 6.0 cm. Left kidney cortex measures 1.5 cm. No m ass, calculus, or hydronephrosis. Right kidney: Right kidney measures 11.0 cm x 5.7 cm x 6.7 cm. Right kidney cortex measures 1.6 cm. N o mass, calculus, or hydronephrosis. Spleen: Spleen measures 14.8 cm x 6.3 cm x 5.8 cm. No focal lesion. Small amount of ascites present. US/US abdomen complete* [id number] IMPRESSION: Findings most compatible with hepatic cirrhosis with portal venous hypertension , splenomegaly, and ascites. Liver appears of smaller volume and more echogenic than on the previous examina tion of 10/21/2021.
== END 2021-12-21 23:59 | disposition home or self-care (01) ==
LOC: RAD 12-21 10:14 → ONCMED 12-21 10:22
PROVIDERS: PCP Family Medicine; Visit Provider Internal Medicine Hematology & Oncology
DX: D69.6 Thrombocytopenia, unspecified (principal); Z53.9 Procedure and treatment not carried out, unspecified reason
CPT/HCPCS: 76700; 85025; 99204

== ENCOUNTER → 2021-12-20 09:35 | Outpatient (BNVA) | payer MEDICARE, MEDICAID, SELFPAY | PROVIDERS: PCP Family Medicine; Referring Provider Family Medicine; Visit Provider Internal Medicine | DX: M25.9 Joint disorder, unspecified (principal); W19.XXXA Unspecified fall, initial encounter | CPT/HCPCS: 73120; 80053; 81003; 82607; 83735; 84100; 85025; 85651; 86038; 86140; 86200; 86431; 99204 ==

== ENCOUNTER → 2022-01-11 08:39 | Outpatient (BNVA) | payer MEDICARE, MEDICAID, SELFPAY | PROVIDERS: PCP Family Medicine; Visit Provider Internal Medicine | DX: M25.50 Pain in unspecified joint (principal); R76.8 Other specified abnormal immunological findings in serum; G89.29 Other chronic pain; K74.69 Other cirrhosis of liver; E11.65 Type 2 diabetes mellitus with hyperglycemia; Z79.4 Long term (current) use of insulin | CPT/HCPCS: 99214 ==

== ENCOUNTER → 2022-01-30 15:55 | Outpatient (BNVA) | payer MEDICARE, MEDICAID, SELFPAY | PROVIDERS: PCP Family Medicine; Visit Provider Internal Medicine | DX: M19.90 Unspecified osteoarthritis, unspecified site (principal); R70.0 Elevated erythrocyte sedimentation rate; K74.69 Other cirrhosis of liver; E11.9 Type 2 diabetes mellitus without complications; Z79.4 Long term (current) use of insulin; E61.2 Magnesium deficiency | CPT/HCPCS: 99214 ==

== ENCOUNTER → 2022-02-12 15:03 | Outpatient (BNVA) | payer MEDICARE, MEDICAID, SELFPAY | PROVIDERS: PCP Family Medicine; Visit Provider Nurse Practitioner | DX: G93.89 Other specified disorders of brain (principal) | CPT/HCPCS: 99213; 99214 ==

== ENCOUNTER 2022-03-05 10:06 | Outpatient (CLI) | payer MEDICARE, MEDICAID, SELFPAY ==
[2022-03-05 10:52] LABS: Alanine Aminotransferase 35 U/L (0-33); Albumin Level 3.2 g/dL (3.5-5.2); Alkaline Phosphatase 94 U/L (35-105); Anion Gap 10.6 (5-19); Aspartate Amino Transferase 42 U/L (0-32); Blood Urea Nitrogen 14 mg/dL (8-23); Calcium 8.6 mg/dL (8.5-10.5); Carbon Dioxide 22 mmol/L (22-29); Chloride 105 mmol/L (98-107); Globulin 5.2 g/dL (1.3-4.6); Glomerular Filtration Rate 83.5 mL/min (90-130); Glucose 130 mg/dL (65-115); Osmolality Calculated 280 mOsm/kg (285-295); Potassium 3.6 mmol/L (3.5-5.1); Sodium 134 mmol/L (136-145); Total Protein 8.4 g/dL (6.6-8.7)
[2022-03-05 11:46] LABS: Estmated Average Glucose 174; Hemoglobin A1C 7.7 % (4.0-6.0)
== END 2022-03-05 10:07 | disposition home or self-care (01) ==
LOC: LAB 10:09
PROVIDERS: PCP Family Medicine; Visit Provider Family Medicine
DX: E11.649 Type 2 diabetes mellitus with hypoglycemia without coma (principal); Z79.4 Long term (current) use of insulin
CPT/HCPCS: 36415; 80053; 83036

== ENCOUNTER → 2022-03-13 09:16 | Outpatient (BNVA) | payer MEDICARE, MEDICAID, SELFPAY | PROVIDERS: PCP Family Medicine; Referring Provider Nurse Practitioner; Visit Provider Specialist | DX: G30.9 Alzheimer's disease, unspecified (principal); F02.80 Dementia in other diseases classified elsewhere, unspecified severity, without behavioral disturbance, psychotic disturbance, mood disturbance, and anxiety; E11.40 Type 2 diabetes mellitus with diabetic neuropathy, unspecified; Z79.4 Long term (current) use of insulin; G93.89 Other specified disorders of brain | CPT/HCPCS: 36415; 82607; 82746; 96116; 99214; 99215 ==

== ENCOUNTER → 2022-04-03 15:37 | Outpatient (BNVA) | payer MEDICARE, MEDICAID, SELFPAY | PROVIDERS: PCP Family Medicine; Visit Provider Internal Medicine Cardiovascular Disease | DX: I25.10 Atherosclerotic heart disease of native coronary artery without angina pectoris (principal); I11.0 Hypertensive heart disease with heart failure; I50.30 Unspecified diastolic (congestive) heart failure; F17.200 Nicotine dependence, unspecified, uncomplicated; R00.1 Bradycardia, unspecified | CPT/HCPCS: 93005; 99214 ==

== ENCOUNTER 2022-04-24 13:43 | Outpatient (CLI) | payer MEDICARE, MEDICAID, SELFPAY ==
--- NOTE | 2022-04-24 14:09 | XR_ITS ---
WS: [id number] Lumbar spine with flexion, extension, and neutral lateral, 04/24/2022 Clinical Data: VERTEBROGENIC LOW BACK PAIN Comparison: Lumbar spine, 10/21/2021 Findings: No compression fractures or subluxation is seen. There is degenerative disc narrowing at T12-L1, L3-L 4 and L4-L5. No limitation of motion or subluxation is seen. There is anterior osteophyte formation at T12-L1, L2, L3 and L4. There is calcification of the abdomi nal aorta but no aneurysm. XR/XR lumbar spine f/e only [id number] Impression: 1. Degenerative disc narrowing at multiple levels. 2. Anterior osteophyte formation at multiple levels. 3. Negative for limitation of motion or subluxation on flexion or extension.
--- NOTE | 2022-04-24 14:09 | XRR_ITS ---
PROCEDURE INFORMATION: Exam: XR Bilateral Hips Exam date and time: 04/24/2022 2:10 PM Age: 66 years old Clinical indication: Hip pain; Bilateral; Patient HX: Pain in lower back that radiates around to the front of both hips. Chronic pain for 2 months or more; Additional info: Right and left hip pain TECHNIQUE: Imaging protocol: Radiologic exam of the bilateral hips. Views: 2 views of hips with pelvis when performed. 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 Soft tissues: Unremarkable. 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
== END 2022-04-24 13:44 | disposition home or self-care (01) ==
LOC: RAD 13:47
PROVIDERS: PCP Family Medicine; Visit Provider Anesthesiology Pain Medicine
DX: M54.51 Vertebrogenic low back pain (principal); M25.78 Osteophyte, vertebrae; M16.0 Bilateral primary osteoarthritis of hip
CPT/HCPCS: 72120; 73522

== ENCOUNTER → 2022-08-28 16:52 | Outpatient (BNVA) | payer MEDICARE, MEDICAID, SELFPAY | PROVIDERS: PCP Family Medicine; Visit Provider Family Medicine | DX: E78.2 Mixed hyperlipidemia (principal); E11.649 Type 2 diabetes mellitus with hypoglycemia without coma; E03.9 Hypothyroidism, unspecified; D69.6 Thrombocytopenia, unspecified | CPT/HCPCS: 85025 ==

== ENCOUNTER → 2022-08-30 15:54 | Outpatient (BNVA) | payer MEDICARE, MEDICAID, SELFPAY | PROVIDERS: PCP Family Medicine; Visit Provider Family Medicine | DX: E11.40 Type 2 diabetes mellitus with diabetic neuropathy, unspecified (principal); E03.9 Hypothyroidism, unspecified; E78.5 Hyperlipidemia, unspecified; E11.9 Type 2 diabetes mellitus without complications; I10 Essential (primary) hypertension; E11.649 Type 2 diabetes mellitus with hypoglycemia without coma; Z79.4 Long term (current) use of insulin; E78.2 Mixed hyperlipidemia | CPT/HCPCS: 80053; 80061; 83036; 84443; 85025 ==

== ENCOUNTER → 2022-09-05 15:04 | Outpatient (BNVA) | payer MEDICARE, MEDICAID, SELFPAY | PROVIDERS: PCP Family Medicine; Visit Provider Nurse Practitioner Family | DX: I11.0 Hypertensive heart disease with heart failure (principal); I50.30 Unspecified diastolic (congestive) heart failure; I25.10 Atherosclerotic heart disease of native coronary artery without angina pectoris; F17.200 Nicotine dependence, unspecified, uncomplicated; Z79.82 Long term (current) use of aspirin | CPT/HCPCS: 99214 ==

== ENCOUNTER → 2022-09-11 08:44 | Outpatient (BNVA) | payer MEDICARE, MEDICAID, SELFPAY | PROVIDERS: PCP Family Medicine; Visit Provider Specialist | DX: G31.84 Mild cognitive impairment of uncertain or unknown etiology (principal); G93.89 Other specified disorders of brain; K74.69 Other cirrhosis of liver | CPT/HCPCS: 99214 ==

== ENCOUNTER 2022-09-17 15:41 | Outpatient (CLI) | payer MEDICARE, MEDICAID, SELFPAY ==
[2022-09-17 17:26] LABS: Ammonia 47 umol/L (11-51)
[2022-09-17 18:02] LABS: Basophils # 0.1 10^3/uL (0.0-0.1); Basophils % 1.4 %; Eosinophils # 0.2 10^3/uL (0.0-0.8); Eosinophils % 4.1 %; Hematocrit 36.4 % (37.0-47.0); Hemoglobin 11.6 g/dL (11.5-15.3); Lymphocytes # 1.3 10^3/uL (0.8-4.8); Mean Corpuscular HGB Conc 31.9 g/dL (30.0-36.0); Mean Corpuscular Hemoglobin 27.5 pg (28.0-34.0); Mean Corpuscular Volume 86.3 fl (81-99); Mean Platelet Volume 11.4 fL (7.4-10.4); Monocytes # 0.4 10^3/uL (0.2-0.9); Monocytes % 10.1 %; Neutrophils # 2.17 10^3/uL (1.8-7.7); Neutrophils % 52.2 %; Nucleated Red Blood Cells % 0 %; Platelet Count 53 10^3/cmm (130-400); Red Blood Count 4.22 10^6/uL (4.1-5.3); Red Cell Distribution Width 14.2 % (12.1-15.1); White Blood Count 4.2 10^3/uL (4.0-10.0)
[2022-09-17 18:18] LABS: LAB Peripheral Smear Sent for Review
== END 2022-09-17 15:42 | disposition home or self-care (01) ==
LOC: LAB 15:49
PROVIDERS: PCP Family Medicine; Visit Provider Family Medicine
DX: K74.69 Other cirrhosis of liver (principal); Z13.6 Encounter for screening for cardiovascular disorders; D69.6 Thrombocytopenia, unspecified; D50.9 Iron deficiency anemia, unspecified
CPT/HCPCS: 80503; 82140; 85025

== ENCOUNTER 2022-10-03 06:00 | Oncology outpatient (recurring) (ONCR) | payer MEDICARE, MEDICAID, SELFPAY ==
[2022-10-03 15:51] LABS: Basophils % 0.9 %; Eosinophils # 0.1 10^3/uL (0.0-0.8); Eosinophils % 4.1 %; Hematocrit 33.3 % (37.0-47.0); Hemoglobin 10.7 g/dL (11.5-15.3); Lymphocytes % 28.1 %; Mean Corpuscular HGB Conc 32.1 g/dL (30.0-36.0); Mean Corpuscular Hemoglobin 27.6 pg (28.0-34.0); Mean Corpuscular Volume 85.8 fl (81-99); Mean Platelet Volume 10.1 fL (7.4-10.4); Monocytes # 0.4 10^3/uL (0.2-0.9); Monocytes % 11.3 %; Neutrophils # 1.91 10^3/uL (1.8-7.7); Neutrophils % 55.3 %; Nucleated Red Blood Cells % 0 %; Platelet Count 57 10^3/cmm (130-400); Red Blood Count 3.88 10^6/uL (4.1-5.3); Red Cell Distribution Width 14.9 % (12.1-15.1); White Blood Count 3.5 10^3/uL (4.0-10.0)
[2022-10-03 17:11] LABS: Add Urine Microscopic? NO; Charge for UA Resulting for Rev
[2022-10-03 17:18] LABS: Bilirubin Urine Neg (Negative); Blood Urine Neg (Negative); Glucose Urine UA Norm (Normal); Ketones Urine Negative (Negative); Leukocyte Esterase Urine Negative (Negative); Nitrate Urine Negative (Negative); Protein Urine Neg (Negative); Urine Appearance Clear (CLEAR); Urine Color Yellow (Yellow); Urobilinogen Urine Neg (Negative); pH Urine 5 (5-7)
== END 2022-10-21 23:59 | disposition home or self-care (01) ==
LOC: ONCMED 11-02 12:17
PROVIDERS: PCP Family Medicine; Visit Provider Internal Medicine Hematology & Oncology
DX: D69.6 Thrombocytopenia, unspecified (principal); R18.8 Other ascites; D72.819 Decreased white blood cell count, unspecified; D64.9 Anemia, unspecified; K76.89 Other specified diseases of liver; Z79.899 Other long term (current) drug therapy; F17.210 Nicotine dependence, cigarettes, uncomplicated
CPT/HCPCS: 36415; 81003; 85025; 99214

== ENCOUNTER → 2022-11-27 15:24 | Outpatient (BNVA) | payer MEDICARE, MEDICAID, SELFPAY | PROVIDERS: PCP Family Medicine; Visit Provider Family Medicine | DX: I10 Essential (primary) hypertension (principal); E78.2 Mixed hyperlipidemia; E11.649 Type 2 diabetes mellitus with hypoglycemia without coma; E03.9 Hypothyroidism, unspecified; D69.6 Thrombocytopenia, unspecified; Z79.4 Long term (current) use of insulin | CPT/HCPCS: 80053; 83036; 84443 ==

== ENCOUNTER 2022-12-03 08:44 | Outpatient (CLI) | payer MEDICARE, MEDICAID, SELFPAY ==
--- NOTE | 2022-12-03 08:48 | XR_ITS ---
WS: [id number] XR ribs RT 2V* [id number] REASON FOR EXAM: right sided rib pain FINDINGS: No fracture or other focal rib lesion is identified. No abnormality of the underlying lung or pleura is noted. XR/XR ribs RT 2V* [id number] IMPRESSION: No abnormality identified.
== END 2022-12-03 08:45 | disposition home or self-care (01) ==
PROVIDERS: PCP Family Medicine; Visit Provider Family Medicine
DX: E11.40 Type 2 diabetes mellitus with diabetic neuropathy, unspecified (principal); E03.9 Hypothyroidism, unspecified; K74.69 Other cirrhosis of liver; R07.81 Pleurodynia; F17.200 Nicotine dependence, unspecified, uncomplicated; Z79.4 Long term (current) use of insulin; Z79.890 Hormone replacement therapy
CPT/HCPCS: 71100; 99204

== ENCOUNTER 2022-12-18 13:15 | Inpatient (IN) | payer MEDICARE, MEDICAID, SELFPAY ==
[2022-12-18] VITALS (92 sets, daily range): BP systolic 78–149; BP diastolic 51–99; PULSE 55–102; RESP 13–29; TEMP 34.6; O2SAT 93–100; BMI 28.3
--- NOTE | 2022-12-18 13:18 | XR_ITS ---
WS: [id number] Exam: XR chest 1V portable [id number] Date/Time of Exam: 12/18/2022 1:18 PM Reason For Exam: dyspnea/cough Comparison 10/20/2021. The lungs are fully inflated and clear. Normal cardiomediastinal silhouette. Bony structures are inta ct. XR/XR chest 1V portable [id number] IMPRESSION: 1. No acute cardiopulmonary finding.
--- NOTE | 2022-12-18 13:18 | CTR_ITS ---
PROCEDURE INFORMATION: Exam: CT Head Without Contrast Exam date and time: 12/18/2022 4:06 PM Age: 67 years old Clinical indication: Altered mental status/memory loss; Additional info: AMS TECHNIQUE: Imaging protocol: Computed tomography of the head without contrast. Radiation optimization: All CT scans at this facility use at least one of these dose optimization techniques: automated exposure control; mA and/or kV adjustment per patient size (includes targeted exams where dose is matched to clinical indication); or iterative reconstruction. REPORTING DATA: Count of CT and Cardiac NM exams in prior 12 months: This patient has received 0 known CTs and 0 known cardiac nuclear medicine studies in the 12 months prior to the current study. COMPARISON: MR head wo con* [id number] 10/23/2021 1:15 PM RADIATION DOSE METRICS: Total DLP (mGy-cm): 1004.38 FINDINGS: Brain: Moderate diffuse white matter disease likely reflecting chronic microvascular ischemic changes. Cerebral ventricles: No ventriculomegaly. Paranasal sinuses: Visualized sinuses are unremarkable. No fluid levels. Mastoid air cells: Visualized mastoid air cells are well aerated. Bones/joints: Unremarkable. No acute fracture. Soft tissues: Unremarkable. Other findings: Mild diffuse ventricular dilation similar to prior exam may reflect a degree of a chronic communicating hydrocephalus. CT/CT head wo con* [id number] IMPRESSION: 1. Moderate diffuse white matter disease likely reflecting chronic microvascular ischemic changes. 2. Mild diffuse ventricular dilation similar to prior exam may reflect a degree of a chronic communicating hydrocephalus.
[2022-12-18] MEDS: LORazepam 2 mg/mL INJ 1 mL ×2 (13:21→13:29)
--- NOTE | 2022-12-18 13:25 | ED_ITS ---
Documented by User: Too Ramirez DO 12/20/22 16:29 HPI - General Adult General: Chief complaint: Altered Mental Status Stated complaint: AMS Time Seen by Provider: 12/18/22 13:18 Source: EMS Mode of arrival: EMS History of Present Illness: 67-year-old female who presents to the emergency room via EMS altered mental status she was found combative and altered by an manager payroll where she l karen she is not able to respond at all she is constantly trying to sit up she had to be restrained by EMS crew they did give her Ativan and Haldol in route despite that she still rather combative. She has no focal deficits. She is not giving any kind of verbal response to questions. History from the old records and from what EMS is able to tell us Onset (ago): unknown Severity: mild Review of Systems General: Reports: ROS unobtainable due to mental status [facility] ED PFSH: Medical History COPD (chronic obstructive pulmonary disease) Coronary artery disease Depression with anxiety Diastolic heart failure Essential hypertension Hyperlipidemia Hypertension Hypothyroidism Type 2 diabetes mellitus Surgical History History of appendectomy History of cholecystectomy History of hysterectomy History of uvulopalatopharyngoplasty S/P exploratory laparotomy S/P percutaneous transluminal angioplasty (DOLLY PUSHER) with stent placement Family History Other CAD (coronary artery disease) Social History Smoking and tobacco status: current every day smoker Second hand smoke exposure: Yes Alcohol intake: never Substance/Drug Use: never Adopted: No Caregiver/support person: Yes Lives independently: Yes Household members: none Housing: Apartment Marital status: Number of children: 5 Highest education level completed: Associate Degree: Academic Program service: No Current occupational status: retired and disabled Pets and animals: Yes Pets & animals: cat(s) Sexually active: No Do you think of yourself as: Straight/Heterosexual Current gender identity: Female Mahogany/Uatsdin: Yarsani [employer] Physical Exam HENMT: COMMON NORMALS: normocephalic, atraumatic and hearing grossly normal bilaterally HEAD & SCALP: normocephalic and atraumatic Resp: COMMON NORMALS: normal respiratory effort, No retractions, No use of accessory muscles and clear to auscultation bilaterally AUSCULTATION: clear to auscultation bilaterally Cardio: COMMON NORMALS: regular rate, regular rhythm and No murmurs present (Cardio) RATE: regular rate RHYTHM: regular rhythm GI: COMMON NORMALS: Soft to palpation and No hepatosplenomegaly present AUSCULTATION: Yes normoactive bowel sounds PALPATION: Yes Soft to palpation, No Tenderness to palpation present (GI), No Guarding due to palpation present (GI) and Yes No hepatosplenomegaly present Extremity: COMMON NORMALS: normal to inspection, capillary refill normal, no clubbing, cyanosis or edema, no calf tenderness and no pedal edema Skin: COMMON NORMALS: no rashes or lesions noted GENERAL SKIN EXAM: no ra shes or lesions noted Procedures Intubation Time out performed: Yes sedative: Etomidate paralytic: Succinylcholine Laryngoscope: Kourtney Assist Device Used: fiber optic device ET Tube Size: 8 ET Tube Uncuffed: Yes Tube Secured Depth (cm): 24 Tube Secured Location: teeth Tube Placement Confirmation: visualized tube passing through cords, equal breath sounds bilaterally, no breath sounds over epigastrium and confirmation by capnometry Patient Tolerated Procedure: well Intubation Complications: none Course Vital Signs: Vital signs: Vital Signs Temperature 98.5 F 12/20/22 12:00 Pulse Rate 75 12/20/22 15:51 Respiratory Rate 15 12/20/22 16:00 Blood Pressure 116/71 12/20/22 12:00 Pulse Oximetry 94 12/20/22 16:00 Oxygen Delivery Me thod Mechanical Ventil ation 12/20/22 12:00 Oxygen Flow Rate 2 12/18/22 13:58 Fraction of Inspir ed Oxygen 30 12/20/22 16:00 [facility] - General Adult Medical Decision Making Patient arrives acutely obtunded. She is combative unable to complete initial exam. Ultimately decided to intubate the patient to allow from appropriate exam. Patient was sedated initially with propofol and then added fentanyl and Versed before able to get her adequately sedated. Labs and imaging are pending care signed out to Dr. Wills at change of shift. See final notes for diagnosis and disposition. Patient care handoff received from Dr. Ramirez pending completion of ED evaluation and admission to the hospital. Per handoff patient presented with altered mental status. She exhibited significant agitation and combativeness and did not respond to benzodiazepines or antipsychotics and given significant risk of deterioration required further ED evaluation. She was intubated prior to my arrival and at time of handoff pending additional imaging. She had received fluid bolus with modest improvement in lactic acid. She was on a heparin drip for NSTEMI. Patient was serially reassessed at bedside. I personally reperformed mike portions of E/M. Unable to obtain review of systems secondary to medical equipment and mental state. On my initial exam patient is intubated and mechanically ventilated. Brisk response to mild stimuli. She withdraws all extremities to noxious stimuli. No elicitable pain with abdominal palpation. No obvious focal neurologic deficits. Lung sounds are clear and equal bilaterally. Warm well perfused extremities with palpable 2+ radial pulses and palpable DP PT on the left and PT on right. Given need for additional access I placed a central line. Unable to obtain consent given emergent circumstances. Somewhat challenging placement due to small IJ however right IJ was still identified as optimal vessel on ultrasound. Postplacement chest x-ray reviewed and ET tube retracted 2.5 cm by respiratory therapy. No evidence of pneumothorax. Additional laboratory studies ordered including coags for use of heparin as well as TSH and ammonia given pre-existing health conditions. The results of all laboratory studies up to point of admission were reviewed. X-ray and CT imaging reviewed. On CT chest abdomen and pelvis no acute pathology to clearly explain patient's symptoms. Incidental findings on imaging noted. Ammonia is modestly elevated, perhaps hepatic encephalopathy is in the differential for etiology of symptoms. With a normal white blood cell count [employer] infection seems less likely, given heparin drip unable to perform lumbar puncture. I ordered additional medications including sedation with fentanyl drip, potassium replenishment, magnesium replenishment, additional fluid bolus. Discussed with hospitalist service who agreed admit the patient to ICU. Patient is critically ill with altered mental status, lactic acidosis of uncertain etiology, electrolyte derangement. Allen Wills MD Emergency Medicine Lab Data 12/20/22 05:23 12/20/22 05:[address] 12/18/22 13:18 IMPRESSION: 1. Moderate diffuse white matter disease likely reflecting chronic microvascular ischemic changes. 2. Mild diffuse ventricular dilation similar to prior exam may reflect a degree of a chronic communicating hydrocephalus. Chest/Abdomen/Pelvis CT 12/18/22 16:42 IMPRESSION: 1. Negative for pulmonary embolus. 2. Bilateral dependent atelectasis versus infiltrate. 3. Endotracheal tube seen in place somewhat approaching the right mainstem bronchus could be withdrawn by 1-2 cm. 4. Coronary artery atherosclerotic calcifications. IMPRESSION: 1. Negative for acute appearing inflammatory process in the abdomen or pelvis. 2. Cirrhotic liver. 3. Perihepatic ascites. 4. Spleen enlarged to 16 cm. 5. Cholecystectomy. 6. Edematous appearing stomach and bowel, likely related to underlying liver disease. 7. Diverticulosis without diverticulitis. 8. Soriano catheter in the urinary bladder with air presumed iatrogenic. Chest X-Ray 12/18/22 20:37 IMPRESSION: 1. Endotracheal tube tip in place 17 mm above the wes. 2. Right central venous catheter tip over the right atrium. 3. Enteric tube tip extending below the diaphragm inferiorly off the field of view. 4. Cardiomegaly and mild pulmonary vascular congestion. Laboratory Results WBC 4.5 10^3/uL (4.0-10.0) 12/18/22 13:32 RBC 4.41 10^6/uL (4.1-5.3) 12/18/22 13:32 Hgb 12.3 g/dL (11.5-15.3) 12/18/22 13:32 Hct 39.9 % (37.0-47.0) 12/18/22 13:32 MCV 90.5 fl (81-99) 12/18/22 13:32 MCH 27.9 pg (28.0-34.0) L 12/18/22 13:32 MCHC 30.8 g/dL (30.0-36.0) 12/18/22 13:32 RDW 15.6 % (12.1-15.1) H 12/18/22 13:32 Plt Count 43 10^3/cmm (130-400) L 12/18/22 13:32 MPV 11.4 fL (7.4-10.4) H 12/18/22 13:32 Neut % (Auto) 53.4 % 12/18/22 13:32 Lymph % (Auto) 35.6 % 12/18/22 13:32 Mccracken % (Auto) 7.7 % 12/18/22 13:32 Eos % (Auto) 2.0 % 12/18/22 13:32 Baso % (Auto) 0.9 % 12/18/22 13:32 Neut # (Auto) 2.41 10^3/uL (1.8-7.7) 12/18/22 13:32 Lymph # (Auto) 1.6 10^3/uL (0.8-4.8) 12/18/22 13:32 Mccracken # (Auto) 0.4 10^3/uL (0.2-0.9) 12/18/22 13:32 Eos # (Auto) 0.1 10^3/uL (0.0-0.8) 12/18/22 13:32 Baso # (Auto) 0.0 10^3/uL (0.0-0.1) 12/18/22 13:32 Nucleated RBC % (auto) 0 % 12/18/22 13:32 Nucleated RBCs # 0.0 /100WBC 12/18/22 13:32 PT Cancelled 12/18/22 19:16 INR Cancelled 12/18/22 19:16 APTT Cancelled 12/18/22 19:16 Specimen Type Arterial 12/18/22 15:15 Sample Site Radial, left 12/18/22 15:15 ABG pH 7.34 (7.35-7.45) L 12/18/22 15:15 ABG pCO2 36.6 mmHg (35-45) 12/18/22 15:15 ABG pO2 444.0 mmHg (80.0-100.0) H 12/18/22 15:15 ABG HCO3 19.9 mmol/L (22-26) L 12/18/22 15:15 ABG O2 Saturation 99.5 12/18/22 15:15 ABG Base Excess -5.3 mmol/L (-2.0-2.0) L 12/18/22 15:15 Damian Test Pos 12/18/22 15:15 A-a O2 Gradient 27.4 mmHg (5-10) H 12/18/22 15:15 Hematocrit 36.3 % (37-47) L 12/18/22 15:15 Hgb O2 Saturation 97.9 % (95-100) 12/18/22 15:15 Carboxyhemoglobin 0.9 %THgb (0.4-20.1) 12/18/22 15:15 Methemoglobin 0.7 % (0.4-1.5) 12/18/22 15:15 Total Hemoglobin 11.8 g/dL (12-16) L 12/18/22 15:15 Sodium 141.0 mmol/L (131-143) 12/18/22 15:15 Potassium 3.2 mmol/L (3.5-5.0) L 12/18/22 15:15 Glucose 206.0 mg/dL (70-115) H 12/18/22 15:15 Ionized Calcium 1.1 mmol/L (1.1-1.4) 12/18/22 15:15 O2 Delivery Device Vent 12/18/22 15:15 FiO2 100.0 % 12/18/22 15:15 PEEP 5.0 cmH20 12/18/22 15:15 Patrol Sergeant ID Walcii 12/18/22 15:15 Sodium 137 mmol/L (136-145) 12/18/22 13:32 Potassium 3.2 mmol/L (3.5-5.1) L 12/18/22 13:32 Chloride 103 mmol/L (98-107) 12/18/22 13:32 Carbon Dioxide 16 mmol/L (22-29) L 12/18/22 13:32 Anion Gap 21.2 (5-19) H 12/18/22 13:32 BUN 12 mg/dL (8-23) 12/18/22 13:32 Creatinine 0.6 mg/dL (0.5-0.9) 12/18/22 13:32 GFR Calculation 99.4 mL/min (90-130) 12/18/22 13:32 Glucose 200 mg/dL (65-115) H 12/18/22 13:32 POC Glucose 197 mg/dL (70-110) H 12/18/22 13:40 Calculated Osmolality 289 mOsm/kg (285-295) 12/18/22 13:32 Lactic Acid 6.3 mmol/L (0.5-2.2) H* 12/18/22 13:32 Lactic Acid (Sepsis) 5.3 mmol/L (0.5-2.2) H* 12/18/22 15:55 Calcium 8.8 mg/dL (8.5-10.5) 12/18/22 13:32 Magnesium 1.6 mg/dL (1.7-2.3) L 12/18/22 13:32 Total Bilirubin 1.3 mg/dL (0.15-1.2) H 12/18/22 13:32 AST 52 U/L (0-32) H 12/18/22 13:32 ALT 30 U/L (0-33) 12/18/22 13:32 Alkaline Phosphatase 118 U/L (35-105) H 12/18/22 13:32 Ammonia Cancelled 12/18/22 19:16 Creatine Kinase 193 U/L (26-192) H 12/18/22 13:32 Troponin T Baseline 6 ng/L (0-10) 12/18/22 13:32 Troponin T 120 Minute 81.89 ng/L (0-10) H 12/18/22 15:55 Delta Troponin T 75.89 ABS# (0-10) H* 12/18/22 15:55 Troponin T Hi Sens 6Hr 224.0 ng/L (0-10) H 12/18/22 19:16 Troponin T Hi Sens 6Hr Delta 218.0 ng/L (0-12) H* 12/18/22 19:16 Total Protein 8.9 g/dL (6.6-8.7) H 12/18/22 13:32 Albumin 3.3 g/dL (3.5-5.2) L 12/18/22 13:32 Globulin 5.6 g/dL (1.3-4.6) H 12/18/22 13:32 Lipase 123 U/L (13-60) H 12/18/22 13:32 TSH 3.87 uIU/mL (0.27-4.20) 12/18/22 19:16 Urine Color Yellow (Yellow) 12/18/22 15:44 Urine Appearance Clear (CLEAR) 12/18/22 15:44 Urine pH 6.5 (5-7) 12/18/22 15:44 Ur Specific Ola 1.015 (1.005-1.030) 12/18/22 15:44 Urine Protein 1+ (Negative) H 12/18/22 15:44 Urine Glucose (UA) Trace (Normal) H 12/18/22 15:44 Urine Ketones Negative (Negative) 12/18/22 15:44 Urine Blood 3+ (Negative) H 12/18/22 15:44 Urine Nitrate Negative (Negative) 12/18/22 15:44 Urine Bilirubin Neg (Negative) 12/18/22 15:44 Urine Urobilinogen 1 mg/dL (Negative) H 12/18/22 15:44 Ur Leukocyte Esterase Not Reportable 12/18/22 15:44 Urine RBC 5-10 /hpf (0-2) H 12/18/22 15:44 Urine WBC 0-4 /hpf (0-5) H 12/18/22 15:44 Ur Squamous Epith Cells 0-4 /hpf (0-5) H 12/18/22 15:44 Amorphous Sediment 1+ /hpf 12/18/22 15:44 Urine Bacteria Not Reportable 12/18/22 15:44 Urine Mucus 1+ /hpf 12/18/22 15:44 Salicylates < 0.3 mg/dL (3-10) L 12/18/22 13:32 Urine Opiates Screen Negative ng/mL (Negative) 12/18/22 15:44 Acetaminophen < 5.0 ug/mL (10-30) L 12/18/22 13:32 Ur Barbiturates Screen Negative ng/mL (Negative) 12/18/22 15:44 Ur Phencyclidine Scrn Negative ng/mL (Negative) 12/18/22 15:44 Ur Amphetamines Screen Negative ng/mL (Negative) 12/18/22 15:44 U Benzodiazepines Scrn Negative ng/mL (Negative) 12/18/22 15:44 Urine Cocaine Screen Negative ng/mL (Negative) 12/18/22 15:44 U Marijuana (THC) Screen Negative ng/mL (Negative) 12/18/22 15:44 Ethyl Alcohol < 10 mg/dL (0-10) 12/18/22 13:32 Serum Ketones Negative (Negative) 12/18/22 13:32 Discharge Plan Discharge Patient Disposition: Admitted As Inpatient Admit Provider: Mohamud Verdugo Clinical Impression: Altered mental status, Acute non-ST elevation myocardial infarction (NSTEMI), Acidosis, lactic, Hypokalemia, Hypomagnesemia Condition: Critical Coding Level of Care Code ED Tax Accounting Manager for Chg Fwd Documented by User: Allen Wills MD 12/19/22 04:19 HPI - General Adult General: Chief complaint: Altered Mental Status Stated complaint: AMS Time Seen by Provider: 12/18/22 13:18 PFSH ED PFSH: Medical History COPD (chronic obstructive pulmonary disease) Coronary artery disease Depression with anxiety Diastolic heart failure Essential hypertension Hyperlipidemia Hypertension Hypothyroidism Type 2 diabetes mellitus Surgical History History of appendectomy History of cholecystectomy History of hysterectomy History of uvulopalatopharyngoplasty S/P exploratory laparotomy S/P percutaneous transluminal angioplasty (DOLLY PUSHER) with stent placement Family History Other CAD (coronary artery disease) Social History Smoking and tobacco status: current every day smoker Second hand smoke exposure: Yes Alcohol intake: never Substance/Drug Use: never Adopted: No Caregiver/support person: Yes Lives independently: Yes Household members: none Housing: Apartment Marital status: Number of children: 5 Highest education level completed: Associate Degree: Academic Program service: No Current occupational status: retired and disabled Pets and animals: Yes Pets & animals: cat(s) Sexually active: No Do you think of yourself as: Straight/Heterosexual Current gender identity: Female Mahogany/Uatsdin: Yarsani [employer] Procedures Central Line Placement Right IJ: Time Out Performed: Yes Patient Placed on Monitor/Pulse Ox: Yes Prep: mask, gown and gloves Central Line Prep: Povidone-Iodine 1% and sterile drapes applied Local Anesthetic: lidocaine 1% Amount of anesthesia used (mL): 2 Ultrasound Used for Placement: Yes Central Line Lumen Inserted: triple Post Procedure: sutured in place, good blood return, all ports aspirated, flushed, capped and sterile dressing applied Post Procedure X-Ray: tip of catheter in good position and no pneumothorax seen Patient Tolerated Procedure: well Complications: hematoma at puncture site Course Vital Signs: Vital signs: Vital Signs Temperature 98.5 F 12/20/22 12:00 Pulse Rate 75 12/20/22 15:51 Respiratory Rate 15 12/20/22 16:00 Blood Pressure 116/71 12/20/22 12:00 Pulse Oximetry 94 12/20/22 16:00 Oxygen Delivery Me thod Mechanical Ventil ation 12/20/22 12:00 Oxygen Flow Rate 2 12/18/22 13:58 Fraction of Inspir ed Oxygen 30 12/20/22 16:00 MDM - General Adult Medical Decision Making Patient care handoff received from Dr. Ramirez pending completion of ED evaluation and admission to the hospital. Per handoff patient presented with altered mental status. She exhibited significant agitation and combativeness and did not respond to benzodiazepines or antipsychotics and given significant risk of deterioration required further ED evaluation. She was intubated prior to my arrival and at time of handoff pending additional imaging. She had received fluid bolus with modest improvement in lactic acid. She was on a heparin drip for NSTEMI. Patient was serially reassessed at bedside. I personally reperformed mike portions of E/M. Unable to obtain review of systems secondary to medical equipment and mental state. On my initial exam patient is intubated and mechanically ventilated. Brisk response to mild stimuli. She withdraws all extremities to noxious stimuli. No elicitable pain with abdominal palpation. No obvious focal neurologic deficits. Lung sounds are clear and equal bilaterally. Warm well perfused extremities with palpable 2+ radial pulses and palpable DP PT on the left and PT on right. Given need for additional access I placed a central line. Unable to obtain consent given emergent circumstances. Somewhat challenging placement due to small IJ however right IJ was still identified as optimal vessel on ultrasound. Postplacement chest x-ray reviewed and ET tube retracted 2.5 cm by respiratory therapy. No evidence of pneumothorax. Additional laboratory studies ordered including coags for use of heparin as well as TSH and ammonia given pre-existing health conditions. The results of all laboratory studies up to point of admission were reviewed. X-ray and CT imaging reviewed. On CT chest abdomen and pelvis no acute pathology to clearly explain patient's symptoms. Incidental findings on imaging noted. Ammonia is modestly elevated, perhaps hepatic encephalopathy is in the differential for etiology of symptoms. With a normal white blood cell count [employer] infection seems less likely, given heparin drip unable to perform lumbar puncture. I ordered additional medications including sedation with fentanyl drip, potassium replenishment, magnesium replenishment, additional fluid bolus. Discussed with hospitalist service who agreed admit the patient to ICU. Patient is critically ill with altered mental status, lactic acidosis of uncertain etiology, electrolyte derangement. Allen Wills MD Emergency Medicine Lab Data 12/20/22 05:23 12/20/22 05:[address] 12/18/22 13:18 IMPRESSION: 1. Moderate diffuse white matter disease likely reflecting chronic microvascular ischemic changes. 2. Mild diffuse ventricular dilation similar to prior exam may reflect a degree of a chronic communicating hydrocephalus. Chest/Abdomen/Pelvis CT 12/18/22 16:42 IMPRESSION: 1. Negative for pulmonary embolus. 2. Bilateral dependent atelectasis versus infiltrate. 3. Endotracheal tube seen in place somewhat approaching the right mainstem bronchus could be withdrawn by 1-2 cm. 4. Coronary artery atherosclerotic calcifications. IMPRESSION: 1. Negative for acute appearing inflammatory process in the abdomen or pelvis. 2. Cirrhotic liver. 3. Perihepatic ascites. 4. Spleen enlarged to 16 cm. 5. Cholecystectomy. 6. Edematous appearing stomach and bowel, likely related to underlying liver disease. 7. Diverticulosis without diverticulitis. 8. Soriano catheter in the urinary bladder with air presumed iatrogenic. Chest X-Ray 12/18/22 20:37 IMPRESSION: 1. Endotracheal tube tip in place 17 mm above the wes. 2. Right central venous catheter tip over the right atrium. 3. Enteric tube tip extending below the diaphragm inferiorly off the field of view. 4. Cardiomegaly and mild pulmonary vascular congestion. Laboratory Results WBC 4.5 10^3/uL (4.0-10.0) 12/18/22 13:32 RBC 4.41 10^6/uL (4.1-5.3) 12/18/22 13:32 Hgb 12.3 g/dL (11.5-15.3) 12/18/22 13:32 Hct 39.9 % (37.0-47.0) 12/18/22 13:32 MCV 90.5 fl (81-99) 12/18/22 13:32 MCH 27.9 pg (28.0-34.0) L 12/18/22 13:32 MCHC 30.8 g/dL (30.0-36.0) 12/18/22 13:32 RDW 15.6 % (12.1-15.1) H 12/18/22 13:32 Plt Count 43 10^3/cmm (130-400) L 12/18/22 13:32 MPV 11.4 fL (7.4-10.4) H 12/18/22 13:32 Neut % (Auto) 53.4 % 12/18/22 13:32 Lymph % (Auto) 35.6 % 12/18/22 13:32 Mccracken % (Auto) 7.7 % 12/18/22 13:32 Eos % (Auto) 2.0 % 12/18/22 13:32 Baso % (Auto) 0.9 % 12/18/22 13:32 Neut # (Auto) 2.41 10^3/uL (1.8-7.7) 12/18/22 13:32 Lymph # (Auto) 1.6 10^3/uL (0.8-4.8) 12/18/22 13:32 Mccracken # (Auto) 0.4 10^3/uL (0.2-0.9) 12/18/22 13:32 Eos # (Auto) 0.1 10^3/uL (0.0-0.8) 12/18/22 13:32 Baso # (Auto) 0.0 10^3/uL (0.0-0.1) 12/18/22 13:32 Nucleated RBC % (auto) 0 % 12/18/22 13:32 Nucleated RBCs # 0.0 /100WBC 12/18/22 13:32 PT Cancelled 12/18/22 19:16 INR Cancelled 12/18/22 19:16 APTT Cancelled 12/18/22 19:16 Specimen Type Arterial 12/18/22 15:15 Sample Site Radial, left 12/18/22 15:15 ABG pH 7.34 (7.35-7.45) L 12/18/22 15:15 ABG pCO2 36.6 mmHg (35-45) 12/18/22 15:15 ABG pO2 444.0 mmHg (80.0-100.0) H 12/18/22 15:15 ABG HCO3 19.9 mmol/L (22-26) L 12/18/22 15:15 ABG O2 Saturation 99.5 12/18/22 15:15 ABG Base Excess -5.3 mmol/L (-2.0-2.0) L 12/18/22 15:15 Damian Test Pos 12/18/22 15:15 A-a O2 Gradient 27.4 mmHg (5-10) H 12/18/22 15:15 Hematocrit 36.3 % (37-47) L 12/18/22 15:15 Hgb O2 Saturation 97.9 % (95-100) 12/18/22 15:15 Carboxyhemoglobin 0.9 %THgb (0.4-20.1) 12/18/22 15:15 Methemoglobin 0.7 % (0.4-1.5) 12/18/22 15:15 Total Hemoglobin 11.8 g/dL (12-16) L 12/18/22 15:15 Sodium 141.0 mmol/L (131-143) 12/18/22 15:15 Potassium 3.2 mmol/L (3.5-5.0) L 12/18/22 15:15 Glucose 206.0 mg/dL (70-115) H 12/18/22 15:15 Ionized Calcium 1.1 mmol/L (1.1-1.4) 12/18/22 15:15 O2 Delivery Device Vent 12/18/22 15:15 FiO2 100.0 % 12/18/22 15:15 PEEP 5.0 cmH20 12/18/22 15:15 Patrol Sergeant ID Walcii 12/18/22 15:15 Sodium 137 mmol/L (136-145) 12/18/22 13:32 Potassium 3.2 mmol/L (3.5-5.1) L 12/18/22 13:32 Chloride 103 mmol/L (98-107) 12/18/22 13:32 Carbon Dioxide 16 mmol/L (22-29) L 12/18/22 13:32 Anion Gap 21.2 (5-19) H 12/18/22 13:32 BUN 12 mg/dL (8-23) 12/18/22 13:32 Creatinine 0.6 mg/dL (0.5-0.9) 12/18/22 13:32 GFR Calculation 99.4 mL/min (90-130) 12/18/22 13:32 Glucose 200 mg/dL (65-115) H 12/18/22 13:32 POC Glucose 197 mg/dL (70-110) H 12/18/22 13:40 Calculated Osmolality 289 mOsm/kg (285-295) 12/18/22 13:32 Lactic Acid 6.3 mmol/L (0.5-2.2) H* 12/18/22 13:32 Lactic Acid (Sepsis) 5.3 mmol/L (0.5-2.2) H* 12/18/22 15:55 Calcium 8.8 mg/dL (8.5-10.5) 12/18/22 13:32 Magnesium 1.6 mg/dL (1.7-2.3) L 12/18/22 13:32 Total Bilirubin 1.3 mg/dL (0.15-1.2) H 12/18/22 13:32 AST 52 U/L (0-32) H 12/18/22 13:32 ALT 30 U/L (0-33) 12/18/22 13:32 Alkaline Phosphatase 118 U/L (35-105) H 12/18/22 13:32 Ammonia Cancelled 12/18/22 19:16 Creatine Kinase 193 U/L (26-192) H 12/18/22 13:32 Troponin T Baseline 6 ng/L (0-10) 12/18/22 13:32 Troponin T 120 Minute 81.89 ng/L (0-10) H 12/18/22 15:55 Delta Troponin T 75.89 ABS# (0-10) H* 12/18/22 15:55 Troponin T Hi Sens 6Hr 224.0 ng/L (0-10) H 12/18/22 19:16 Troponin T Hi Sens 6Hr Delta 218.0 ng/L (0-12) H* 12/18/22 19:16 Total Protein 8.9 g/dL (6.6-8.7) H 12/18/22 13:32 Albumin 3.3 g/dL (3.5-5.2) L 12/18/22 13:32 Globulin 5.6 g/dL (1.3-4.6) H 12/18/22 13:32 Lipase 123 U/L (13-60) H 12/18/22 13:32 TSH 3.87 uIU/mL (0.27-4.20) 12/18/22 19:16 Urine Color Yellow (Yellow) 12/18/22 15:44 Urine Appearance Clear (CLEAR) 12/18/22 15:44 Urine pH 6.5 (5-7) 12/18/22 15:44 Ur Specific Ola 1.015 (1.005-1.030) 12/18/22 15:44 Urine Protein 1+ (Negative) H 12/18/22 15:44 Urine Glucose (UA) Trace (Normal) H 12/18/22 15:44 Urine Ketones Negative (Negative) 12/18/22 15:44 Urine Blood 3+ (Negative) H 12/18/22 15:44 Urine Nitrate Negative (Negative) 12/18/22 15:44 Urine Bilirubin Neg (Negative) 12/18/22 15:44 Urine Urobilinogen 1 mg/dL (Negative) H 12/18/22 15:44 Ur Leukocyte Esterase Not Reportable 12/18/22 15:44 Urine RBC 5-10 /hpf (0-2) H 12/18/22 15:44 Urine WBC 0-4 /hpf (0-5) H 12/18/22 15:44 Ur Squamous Epith Cells 0-4 /hpf (0-5) H 12/18/22 15:44 Amorphous Sediment 1+ /hpf 12/18/22 15:44 Urine Bacteria Not Reportable 12/18/22 15:44 Urine Mucus 1+ /hpf 12/18/22 15:44 Salicylates < 0.3 mg/dL (3-10) L 12/18/22 13:32 Urine Opiates Screen Negative ng/mL (Negative) 12/18/22 15:44 Acetaminophen < 5.0 ug/mL (10-30) L 12/18/22 13:32 Ur Barbiturates Screen Negative ng/mL (Negative) 12/18/22 15:44 Ur Phencyclidine Scrn Negative ng/mL (Negative) 12/18/22 15:44 Ur Amphetamines Screen Negative ng/mL (Negative) 12/18/22 15:44 U Benzodiazepines Scrn Negative ng/mL (Negative) 12/18/22 15:44 Urine Cocaine Screen Negative ng/mL (Negative) 12/18/22 15:44 U Marijuana (THC) Screen Negative ng/mL (Negative) 12/18/22 15:44 Ethyl Alcohol < 10 mg/dL (0-10) 12/18/22 13:32 Serum Ketones Negative (Negative) 12/18/22 13:32 Critical Care Time Critical Care Time: Critical Care Time: Yes Total Critical Care Time: 80 Attestation: Due to a high probability of clinically significant, possibly life threatening deterioration, the patient required my highest level of attention and preparedness to intervene emergently and I personally spent this critical care time directly and personally managing the patient. This critical care time included obtaining a history; examining the patient; pulse oximetry; ordering and review of laboratory and imaging studies; arranging urgent treatment with development of a management plan; evaluation of patient's response to treatment; frequent reassessment; and, discussions with other providers as applicable. It was exclusive of separately billable procedures. Primary system involved is [employer], metabolic, cardiovascular. Discharge Plan Discharge Patient Disposition: Admitted As Inpatient Admit Provider: Mohamud Verdugo Clinical Impression: Altered mental status, Acute non-ST elevation myocardial infarction (NSTEMI), Acidosis, lactic, Hypokalemia, Hypomagnesemia Condition: Critical Coding Level of Care Code ED Tax Accounting Manager for Jeff Fontaine
[2022-12-18 13:28] LABS: ABG PCO2 27.2 mmHg (35-45); ABG PH Result 7.42 (7.35-7.45); Alveolar-Arterial Oxygen Gradi 3.2 mmHg (5-10); Arterial Blood Gas Hematocrit 37.8 % (37-47); Base Excess ABG -5.4 mmol/L (-2.0-2.0); Blood Gas Allen Test Pos; Blood Gas Operator Identificat GD; Blood Gas Sample Site Radial, right; Blood Gas Sample Type Arterial; Carboxyhemoglobin 1.5 %THgb (0.4-20.1); HCO3 ABG 17.7 mmol/L (22-26); HGB O2 Sat 95.7 % (95-100); Ionized Calcium Level - ABG 1.2 mmol/L (1.1-1.4); Methemoglobin 0.3 % (0.4-1.5); Oxygen Device ROOM AIR; Oxygen Saturation ABG 97.5; PO2 ABG 89.7 mmHg (80.0-100.0); Potassium Level - ABG 3.4 mmol/L (3.5-5.0); Total Hemoglobin 12.3 g/dL (12-16)
[2022-12-18 13:43] LABS: Glucose Point of Care 197 mg/dL (70-110)
[2022-12-18 13:44] LABS: Basophils % 0.9 %; Eosinophils # 0.1 10^3/uL (0.0-0.8); Hematocrit 39.9 % (37.0-47.0); Hemoglobin 12.3 g/dL (11.5-15.3); Lymphocytes # 1.6 10^3/uL (0.8-4.8); Lymphocytes % 35.6 %; Mean Corpuscular HGB Conc 30.8 g/dL (30.0-36.0); Mean Corpuscular Hemoglobin 27.9 pg (28.0-34.0); Mean Corpuscular Volume 90.5 fl (81-99); Mean Platelet Volume 11.4 fL (7.4-10.4); Monocytes # 0.4 10^3/uL (0.2-0.9); Monocytes % 7.7 %; Neutrophils # 2.41 10^3/uL (1.8-7.7); Neutrophils % 53.4 %; Nucleated Red Blood Cells % 0 %; Platelet Count 43 10^3/cmm (130-400); Red Blood Count 4.41 10^6/uL (4.1-5.3); Red Cell Distribution Width 15.6 % (12.1-15.1); White Blood Count 4.5 10^3/uL (4.0-10.0)
[2022-12-18] MEDS: haloperidol inj 5 mg/mL INJ 1 mL IVP (13:55)
[2022-12-18] MEDS: LORazepam 2 mg/mL INJ 1 mL IVP (13:55)
[2022-12-18 14:03] LABS: Troponin(5th) Baseline 6 ng/L (0-10)
[2022-12-18 14:05] LABS: Alanine Aminotransferase 30 U/L (0-33); Albumin Level 3.3 g/dL (3.5-5.2); Alkaline Phosphatase 118 U/L (35-105); Aspartate Amino Transferase 52 U/L (0-32); Blood Urea Nitrogen 12 mg/dL (8-23); Calcium 8.8 mg/dL (8.5-10.5); Carbon Dioxide 16 mmol/L (22-29); Chloride 103 mmol/L (98-107); Creatine Phosphokinase 193 U/L (26-192); Creatinine Clr Calc Pharmacy 64.2494; Globulin 5.6 g/dL (1.3-4.6); Glomerular Filtration Rate 99.4 mL/min (90-130); Glucose 200 mg/dL (65-115); Lipase 123 U/L (13-60); Magnesium 1.6 mg/dL (1.7-2.3); Osmolality Calculated 289 mOsm/kg (285-295); Sodium 137 mmol/L (136-145); Total Bilirubin 1.3 mg/dL (0.15-1.2); Total Protein 8.9 g/dL (6.6-8.7)
[2022-12-18 14:09] LABS: Anion Gap 21.2 (5-19); Potassium 3.2 mmol/L (3.5-5.1)
[2022-12-18 14:11] LABS: Ketone (Acetest) Serum Negative (Negative); Lactic Sepsis W/Reflex 6.3 mmol/L (0.5-2.2)
[2022-12-18 14:53] LABS: Acetaminophen < 5.0 ug/mL (10-30); Alcohol Level < 10 mg/dL (0-10); Salicylate < 0.3 mg/dL (3-10)
[2022-12-18] MEDS: etomidate 2 mg/mL INJ SDV 10 mL 21.77 MG IVP (15:02)
[2022-12-18] MEDS: succinylcholine 20 mg/mL SDV 10mL 108.8625 MG IV (15:03)
[2022-12-18] MEDS: propofol 1,000 MG/100 ML INJ 8.71 MG IV (15:10)
--- NOTE | 2022-12-18 15:12 | ECG_ITS ---
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 Measurements Intervals [place] Rate: 90 P: 21 UT: 173 QRS: 18 QRSD: 98 T: 38 QT: 432 QTc: 530 Interpretive Statements SINUS RHYTHM MINIMAL ST DEPRESSION [0.025+ mV ST DEPRESSION] PROLONGED QT INTERVAL Compared to ECG 10/21/2021 00:15:52 ST (T wave) deviation now present Prolonged QT interval now present Atrial premature complex(es) no longer present Electronically Signed On 12-20-2022 12:26:55 CDT by Anne Marie Musa M.D. [id number]
[2022-12-18 15:24] LABS: Reflex Lactate Order REFLEX LACTIC ORDERD
[2022-12-18 15:27] LABS: ABG PCO2 36.6 mmHg (35-45); ABG PH Result 7.34 (7.35-7.45); Alveolar-Arterial Oxygen Gradi 27.4 mmHg (5-10); Arterial Blood Gas Hematocrit 36.3 % (37-47); Base Excess ABG -5.3 mmol/L (-2.0-2.0); Blood Gas Allen Test Pos; Blood Gas Operator Identificat WALCII; Blood Gas Sample Site Radial, left; Blood Gas Sample Type Arterial; Carboxyhemoglobin 0.9 %THgb (0.4-20.1); HCO3 ABG 19.9 mmol/L (22-26); HGB O2 Sat 97.9 % (95-100); Ionized Calcium Level - ABG 1.1 mmol/L (1.1-1.4); Methemoglobin 0.7 % (0.4-1.5); Oxygen Device VENT; Oxygen Saturation ABG 99.5; Potassium Level - ABG 3.2 mmol/L (3.5-5.0); Total Hemoglobin 11.8 g/dL (12-16)
--- NOTE | 2022-12-18 16:04 | PC.NURSE ---
PER [place] INTUBATE PATIENT. 1502- 20 MG ETOMIDATE 1503- 100 SUCCINYLCHOLINE PATIENT WAS INTUBATED AND TUBE WAS PLACED 22 AT THE LIP. PROPOFOL DRIP WAS STARTED AT 1510, PER [place] START AT 20 MCG. ESCOBAR WAS PLACED. PATIENT STILL RESTLESS FOR CT SCAN PER [facility] TITRATE TO 30 MCG.
[2022-12-18 16:24] LABS: Troponin 5 2HR 81.89 ng/L (0-10)
[2022-12-18 16:28] LABS: Troponin 5 2HR Delta 75.89 ABS# (0-10)
--- NOTE | 2022-12-18 16:35 | ECG_ITS ---
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 Measurements Intervals [place] Rate: 107 P: 33 NM: 168 QRS: 20 QRSD: 94 T: 36 QT: 378 QTc: 506 Interpretive Statements SINUS TACHYCARDIA MINIMAL ST DEPRESSION [0.025+ mV ST DEPRESSION] ABNORMAL RHYTHM ECG Compared to ECG 12/18/2022 15:12:41 Sinus rhythm no longer present Prolonged QT interval no longer present ST (T wave) deviation still present Electronically Signed On 12-19-2022 12:54:28 CDT by Kylah Polk M.D. [id number]
[2022-12-18 16:36] LABS: Add Urine Microscopic? YES; Bilirubin Urine Neg (Negative); Blood Urine 3+ (Negative); Glucose Urine UA Trace (Normal); Ketones Urine Negative (Negative); Nitrate Urine Negative (Negative); Protein Urine 1+ (Negative); Specific Gravity, Urine 1.015 (1.005-1.030); Urine Appearance Clear (CLEAR); Urine Color Yellow (Yellow); Urobilinogen Urine 1 mg/dL (Negative); WBC Urine 0-4 /hpf (0-5); pH Urine 6.5 (5-7)
[2022-12-18 16:37] LABS: Add Urine Culture? No; Amorphous Sediment Urine 1+ /hpf; Mucus Urine 1+ /hpf; Squamous Epithelial Cell Urine 0-4 /hpf (0-5)
[2022-12-18 16:39] LABS: Amphetamines Screen Urine Negative (Negative); Barbiturates Screen Urine Negative (Negative); Benzodiazepines Screen Urine Negative (Negative); Cocaine Screen Urine Negative (Negative); Opiate Screen Urine Negative (Negative); PCP Screen Urine Negative (Negative); THC Screen Urine Negative (Negative)
--- NOTE | 2022-12-18 16:39 | USCV_ITS ---
Means, Luh Age: 67 Gender: F : 1955 Exam Date: 12/18/2022 21:43 Ordering Phys: Too Ramirez DO Technologist: OLIVEIR [place] [facility] [place]: elevated troponin, altered mental status, unresponsive, on ventilator in ICU-11. prior echo 06/14/17 = 40% EF BP: 117 / 79 HR: 56 Rhythm: Sinus Technical Quality: Adequate MEASUREMENTS (Male / Female) Normal Values 2D ECHO LV Diastolic Diameter PLAX 4.2 cm 4.2 - 5.9 / 3.9 - 5.3 cm LV Systolic Diameter PLAX 2.7 cm IVS Diastolic Thickness 1.2 cm 0.6 - 1.0 / 0.6 - 0.9 cm IVS Systolic Thickness 1.5 cm LVPW Diastolic Thickness 1.3 cm 0.6 - 1.0 / 0.6 - 0.9 cm LVPW Systolic Thickness 1.8 cm LVOT Diameter 1.7 cm LV Ejection Fraction 2D Teich 65.4 % LV Ejection Fraction MOD 2C 51.8 % LV Ejection Fraction 2C AL 54.4 % LA Diameter 4.3 cm LA Width 4.5 cm LA Height 4.2 cm RA Width 2.9 cm RA Height 5.0 cm Aorta at Sinotubular Diameter 3.1 cm IVC Diameter 1.8 cm M-MODE Aortic Annulus Diameter 3.5 cm LA Ao Ratio MM 1.2 MV E Point Septal Separation 0.3 cm DOPPLER AV Peak Velocity 123.0 cm/s LVOT Peak Velocity 114.0 cm/s AV Area Cont Eq vti 2.4 cm squared AV Area Cont Eq pk 2.2 cm squared MV Peak Velocity 113.0 cm/s MV Area PHT 3.0 cm squared Mitral E to A Ratio 0.7 MV E' Velocity 44.5 cm/s Mitral E to MV E' Ratio 10.6 Mitral E to LV E' Lateral Ratio 7.9 Mitral E to LV E' Septal Ratio 16.2 TR Peak Velocity 220.0 cm/s TR Peak Gradient 19.4 mmHg TV Peak E Velocity 49.0 cm/s Right Atrial Pressure 5.0 mmHg Pulmonary Artery Systolic Pressu 24.4 mmHg PV Peak Velocity 89.0 cm/s RV Acceleration Time 0.1 s RV Ejection Time 0.4 s RV AcT/ET 0.3 FINDINGS Left Ventricle Normal left ventricular size and systolic function, EF 59 %. Mild to moderate concentric left-ventricular hypertrophy.no regional wall motion abnormalities. Grade I/IV diastolic dysfunction (abnormal relaxation filling pattern), normal to mildly elevated filling pressures. Right Ventricle The right ventricle is normal in size and function. Right Atrium The right atrium is normal in size. Left Atrium Mildly increased left atrial size. Mitral Valve Mildly thickened mitral valve. Aortic Valve Thickened aortic valve. Tricuspid Valve Trace tricuspid valve regurgitation. Pulmonic Valve Pulmonic valve not well visualized. Pericardium Trace of pericardial effusion. Aorta Normal ascending aorta dimension. IVC The inferior vena cava appears normal. CONCLUSIONS Normal left ventricular size and systolic function, EF 59 %. Mild to moderate concentric left-ventricular hypertrophy.no regional wall motion abnormalities. Grade I/IV diastolic dysfunction (abnormal relaxation filling pattern), normal to mildly elevated filling pressures. Mildly thickened aortic and mitral valves. Mild lipid enlargement Trace tricuspid valve regurgitation. Estimated pulmonary artery peak systolic pressure 24 mmHg Trivial pericardial effusion. Compared to the previous study from 06/14/2017, there is improvement in the LV ejection fraction from 40% to 59%. Dr Anne Marie Musa MD FACC (Electronically Signed) Final Date: 19 December 2022 07:31 S
--- NOTE | 2022-12-18 16:42 | CTR_ITS ---
PROCEDURE INFORMATION: Exam: CTA Chest With Contrast Exam date and time: 12/18/2022 6:56 PM Age: 67 years old Clinical indication: Other: Unexplained altered and resp distress; Shortness of breath; Additional info: Resp distress, elevated transaminases TECHNIQUE: Imaging protocol: Computed tomographic angiography of the chest with contrast. Exam focused on the arteries. 3D rendering (Not supervised by radiologist): MIP and/or 3D reconstructed images were created by the technologist. Radiation optimization: All CT scans at this facility use at least one of these dose optimization techniques: automated exposure control; mA and/or kV adjustment per patient size (includes targeted exams where dose is matched to clinical indication); or iterative reconstruction. Contrast material: OMNI 350; Contrast volume: 100 ml; Contrast route: INTRAVENOUS (IV); REPORTING DATA: Count of CT and Cardiac NM exams in prior 12 months: This patient has received 0 known CTs and 0 known cardiac nuclear medicine studies in the 12 months prior to the current study. COMPARISON: CT angio chest PE protcl [id number] 10/20/2021 10:51 PM RADIATION DOSE METRICS: Total DLP (mGy-cm): 1248.31 FINDINGS: Tubes, catheters and devices: Endotracheal tube seen in place somewhat approaching the right mainstem bronchus could be withdrawn by 1-2 cm. Pulmonary arteries: Normal. No pulmonary emboli. Aorta: Unremarkable. No aortic aneurysm. No aortic dissection. Lungs: Bilateral dependent atelectasis versus infiltrate. Pleural spaces: Unremarkable. No pneumothorax. No pleural effusion. Heart: Unremarkable. No cardiomegaly. No pericardial effusion. Coronary arteries: Coronary artery atherosclerotic calcifications. Lymph nodes: Unremarkable. No enlarged lymph nodes. Bones/joints: Unremarkable. No acute fracture. Soft tissues: Unremarkable. PROCEDURE INFORMATION: Exam: CT Abdomen And Pelvis With Contrast Exam date and time: 12/18/2022 6:56 PM Age: 67 years old Clinical indication: Other: Unexplained altered and resp distress; Shortness of breath; Additional info: Resp distress, elevated transaminases TECHNIQUE: Imaging protocol: Computed tomography of the abdomen and pelvis with contrast. Radiation optimization: All CT scans at this facility use at least one of these dose optimization techniques: automated exposure control; mA and/or kV adjustment per patient size (includes targeted exams where dose is matched to clinical indication); or iterative reconstruction. Contrast material: OMNI 350; Contrast volume: 100 ml; Contrast route: INTRAVENOUS (IV); REPORTING DATA: Count of CT and Cardiac NM exams in prior 12 months: This patient has received 0 known CTs and 0 known cardiac nuclear medicine studies in the 12 months prior to the current study. COMPARISON: CT abdomen pelvis w con* [id number] 08/22/2019 6:02 AM RADIATION DOSE METRICS: Total DLP (mGy-cm): 1248.31 FINDINGS: Liver: Cirrhotic liver. Gallbladder and bile ducts: Cholecystectomy. Pancreas: Normal. No ductal dilation. Spleen: Spleen enlarged to 16 cm. Adrenal glands: Normal. No mass. Kidneys and ureters: Normal. No hydronephrosis. Stomach and bowel: Edematous appearing stomach and bowel, likely related to underlying liver disease. Diverticulosis without diverticulitis. Appendix: No evidence of appendicitis. Intraperitoneal space: Perihepatic ascites. Vasculature: Unremarkable. No abdominal aortic aneurysm. Lymph nodes: Unremarkable. No enlarged lymph nodes. Urinary bladder: Soriano catheter in the urinary bladder with air presumed iatrogenic. Reproductive: Unremarkable as visualized. Bones/joints: Unremarkable. No acute fracture. Soft tissues: Unremarkable. CT/CT angio chest w abd pel w con IMPRESSION: 1. Negative for pulmonary embolus. 2. Bilateral dependent atelectasis versus infiltrate. 3. Endotracheal tube seen in place somewhat approaching the right mainstem bronchus could be withdrawn by 1-2 cm. 4. Coronary artery atherosclerotic calcifications. IMPRESSION: 1. Negative for acute appearing inflammatory process in the abdomen or pelvis. 2. Cirrhotic liver. 3. Perihepatic ascites. 4. Spleen enlarged to 16 cm. 5. Cholecystectomy. 6. Edematous appearing stomach and bowel, likely related to underlying liver disease. 7. Diverticulosis without diverticulitis. 8. Soriano catheter in the urinary bladder with air presumed iatrogenic.
[2022-12-18 16:45] LABS: Lactic Acid level (Lactate) 5.3 mmol/L (0.5-2.2)
[2022-12-18] MEDS: fentaNYL 50 mcg/mL INJ 2mL IVP (16:46)
[2022-12-18] MEDS: midazolam 1 mg/mL INJ 2 mL 2 MG IVP (16:46)
[2022-12-18] MEDS: levofloxacin-dextrose 5 % 750 MG/150 ML PREMIX 100 MG IV (16:50)
[2022-12-18] MEDS: sodium chloride 0.9% 2,177.25 ML 2177.25 ML IV (16:55)
--- NOTE | 2022-12-18 18:01 | PC.NURSE ---
CALVINAN VERBALIZED TO PULL 10 VECURONIUM, NURSE SHEELA UP 10 VECURONIUM. CALVINAN VERBALIZED TO CANCEL ORDER. NURSE AND 2ND NURSE WITNESSED WASTE.
--- NOTE | 2022-12-18 18:02 | XRR_ITS ---
PROCEDURE INFORMATION: Exam: XR Chest Exam date and time: 12/18/2022 6:07 PM Age: 67 years old Clinical indication: Other vascular access device placement or adjustment; Central line, tunnelled; Additional info: Central line R ij TECHNIQUE: Imaging protocol: Radiologic exam of the chest. Views: 1 view. COMPARISON: CR XR chest 1V portable [id number] 12/18/2022 12:28 PM FINDINGS: Tubes, catheters and devices: Endotracheal tube tip seen extending into the right mainstem bronchus could be withdrawn by approximately 2.5 cm. Right central venous catheter tip over the right atrium. Lungs: Pulmonary vascular congestion. Pleural spaces: Unremarkable. No pleural effusion. No pneumothorax. Heart/Mediastinum: Cardiomegaly. Bones/joints: Unremarkable. XR/XR chest 1V portable [id number] IMPRESSION: 1. Endotracheal tube tip seen extending into the right mainstem bronchus could be withdrawn by approximately 2.5 cm 2. Right central venous catheter tip over the right atrium. 3. Cardiomegaly. 4. Pulmonary vascular congestion.
[2022-12-18] MEDS: magnesium sulfate premix 4 GM/100 ML PREMIX IV (18:39)
[2022-12-18] MEDS: lidocaine 1% 5 ML in potassium chloride premix 100 ML 26.25 ML IV (18:40)
[2022-12-18] MEDS: heparin 5,000 unit/mL INJ 1 mL IV (18:47)
[2022-12-18] MEDS: heparin drip 25,000 UNIT/500 ML PREMIX 20.32 UNIT IV (18:49)
[2022-12-18] MEDS: iohexol 350 mg/mL 500 mL Btl (per mL) IV (19:09)
--- NOTE | 2022-12-18 19:13 | PC.NURSE ---
Assumed care of patient from DAVE Rico at this time.
--- NOTE | 2022-12-18 19:19 | ECG_ITS ---
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 Measurements Intervals [place] Rate: 75 P: 21 NM: 191 QRS: 14 QRSD: 114 T: 16 QT: 417 QTc: 466 Interpretive Statements SINUS RHYTHM MODERATE INTRAVENTRICULAR CONDUCTION DELAY [110+ ms QRS DURATION] NONSPECIFIC T-WAVE ABNORMALITY Compared to ECG 12/18/2022 16:35:49 Intraventricular conduction delay now present T-wave abnormality now present Sinus tachycardia no longer present ST (T wave) deviation no longer present Electronically Signed On 12-20-2022 12:32:51 CDT by Kylah Polk M.D. [id number]
[2022-12-18] MEDS: fentaNYL 50 mcg/mL INJ 2mL 100 MCG IVP (19:24)
[2022-12-18] MEDS: propofol 1,000 MG/100 ML INJ 17.42 MG IV (19:49)
[2022-12-18] MEDS: sodium chloride 0.9% 1,000 ML 999 ML IV (19:55)
[2022-12-18 20:14] LABS: Thyroid Stimulating Hormone 3.87 uIU/mL (0.27-4.20)
[2022-12-18 20:32] LABS: Glucose Point of Care 127 mg/dL (70-110)
--- NOTE | 2022-12-18 20:37 | XRR_ITS ---
PROCEDURE INFORMATION: Exam: XR Chest Exam date and time: 12/18/2022 8:42 PM Age: 67 years old Clinical indication: Device placement; Other: Og tube; Additional info: Og tube placement TECHNIQUE: Imaging protocol: Radiologic exam of the chest. Views: 1 view. COMPARISON: CR (CHEST, ) 12/18/2022 6:07 PM FINDINGS: Tubes, catheters and devices: Endotracheal tube tip in place 17 mm above the wes. Right central venous catheter tip over the right atrium. Enteric tube tip extending below the diaphragm inferiorly off the field of view. Lungs: See Heart/Mediastinum finding. Pleural spaces: Unremarkable. No pleural effusion. No pneumothorax. Heart/Mediastinum: Cardiomegaly and mild pulmonary vascular congestion. Bones/joints: Unremarkable. XR/XR chest 1V portable [id number] IMPRESSION: 1. Endotracheal tube tip in place 17 mm above the wes. 2. Right central venous catheter tip over the right atrium. 3. Enteric tube tip extending below the diaphragm inferiorly off the field of view. 4. Cardiomegaly and mild pulmonary vascular congestion.
[2022-12-18 20:50] LABS: INR 1.94 (0.8-1.2)
[2022-12-18 20:55] LABS: Ammonia 83 umol/L (11-51)
[2022-12-18 21:30] LABS: Partial Thromboplastin Time > 250.0 SECONDS (23.9-36.7)
[2022-12-18] MEDS: pantoprazole 40 mg SDV IVP (22:20)
[2022-12-18] MEDS: valproic acid inj 500 MG in sodium chloride 0.9% 50 ML 55 MG IV (22:21)
[2022-12-18] MEDS: sodium chloride 0.9% 1,000 ML 75 ML IV (22:21)
--- NOTE | 2022-12-18 23:03 | P.HP_ITS ---
Providers/Chief Complaint Admitting Physician: Mohamud Verudgo DO Primary Care Provider: Sara Montenegro DO Chief Complaint: AMS History of Present Illness Luh Ray is a 67 year old female who was intubated upon my notification. History is taken from the chart ER physician and ER nurse. Patient initially presented with an altered mental status and very combative she was confused. She was unresponsive to the medications to calm her down. Thus she was intubated. RN was able to find out through EMS that patient was complaining of chest pain she went to visit her landlord. He stepped away from her for a certain amount of time and when he returned she was found down. When EMS arrived she was in the state of altered mental status and combative. As stated in the emergency room she was intubated she was found to have abnormal electrolytes her ABG was within normal limits prior to intubation. Work-up was essentially negative except for also a lactic acid elevation. Due to the chest pain history she was started on non-STEMI regimen with heparin and sedated with propofol and fentanyl. Given 4 g of magnesium and 40 mEq of potassium in the emergency room Review of chart shows that the patient has had memory problems for since 2012 and she has been following with neurologist, Dr. Sheridan. She has stopped taking her medications for memory. She has recently been diagnosed with arthritic problems and started on hydroxychloroquine. Has known cirrhosis of the liver however alcohol ingestion is negative per chart and her sister in [place]. Her ammonia level was elevated at 82. Review of Systems General: Reports: ROS unobtainable due to endotracheal tube and ROS unobtainable due to medical condition Medications/Allergies Home Medications Medication Instructions Recorded Confirmed Last Taken Type fluticasone propionate 50 2 spray intranasal DAILY 07/15/19 12/18/22 08/22/19 History mcg/actuation nasal spray,suspension (Flonase Allergy Relief) albuterol sulfate 90 mcg/actuation 2 inh inhalation Q4H PRN shortness 10/14/19 12/18/22 Unknown Rx aerosol inhaler of breath or wheezing #18 grams aspirin 81 mg tablet,delayed 81 mg PO DAILY 04/14/21 12/18/22 10/20/21 History release blood sugar diagnostic (FreeStyle 04/14/21 12/18/22 Unknown History Test strips) blood-glucose meter (FreeStyle #1 ea 04/14/21 12/18/22 Unknown Rx Carey Lite kit) insulin needles (disposable) 30 X 04/14/21 12/18/22 Unknown History 3/4 pen needle, diabetic 31 gauge x #120 ea 04/14/21 12/18/22 Unknown Rx 3/16 (TechLITE Pen Needle) cane #1 ea 12/28/21 12/18/22 Unknown Rx biotin 800 mcg tablet 800 mcg PO DAILY 02/12/22 12/18/22 Unknown History flash glucose sensor (FreeStyle #2 ea 02/22/22 12/18/22 Unknown Rx Rox 14 Day Sensor kit) pantoprazole 40 mg tablet,delayed 40 mg PO DAILY #90 tabs 05/29/22 12/18/22 Unknown Rx release (Protonix) spironolactone 25 mg tablet See Rx Instructions .Route 07/09/22 12/18/22 Unknown Rx .COMPLEX #90 tabs atorvastatin 40 mg tablet 40 mg PO DAILY #90 tabs 08/28/22 12/18/22 Unknown Rx insulin degludec 200 unit/mL (3 See Rx Instructions .Route 08/28/22 12/18/22 Unknown Rx mL) subcutaneous pen (Tresiba .COMPLEX #9 mL FlexTouch U-200 insulin) isosorbide mononitrate 30 mg 30 mg PO DAILY #90 tabs 08/28/22 12/18/22 Unknown Rx tablet,extended release 24 hr loratadine 10 mg tablet 10 mg PO DAILY PRN Allergy Symptoms 09/11/22 12/18/22 Unknown History hydroxychloroquine 200 mg tablet 200 mg PO BID #180 tabs 09/13/22 12/18/22 Unknown Rx fluoxetine 10 mg capsule 10 mg PO DAILY 12/18/22 12/18/22 Unknown History levothyroxine 175 mcg tablet 175 mcg PO DAILY 12/18/22 12/18/22 Unknown History trazodone 100 mg tablet 100 mg PO BEDTIME 12/18/22 12/18/22 Unknown History Allergies Allergy/AdvReac Type Severity Reaction Status Date / Time meperidine [From Demerol] Allergy Severe Unconscious Verified 12/18/22 14:43 amoxicillin Allergy Intermediate Rash Verified 12/18/22 14:43 pseudoephedrine [From NyQuil] Allergy Intermediate ADR-Agitate Verified 12/18/22 14:43 d pentazocine [From Talwin] Allergy Unknown Unknown Verified 12/18/22 14:43 prochlorperazine Allergy Unknown Unknown Verified 12/18/22 14:43 [From Compazine] acetaminophen [From NyQuil] Allergy ADR-Agitate Verified 12/18/22 14:43 d dextromethorphan Allergy ADR-Agitate Verified 12/18/22 14:43 [From NyQuil] d doxylamine [From NyQuil] Allergy ADR-Agitate Verified 12/18/22 14:43 d PFSH Acute PFSH: Medical History COPD (chronic obstructive pulmonary disease) Coronary artery disease Depression with anxiety Diastolic heart failure Essential hypertension Hyperlipidemia Hypertension Hypothyroidism Type 2 diabetes mellitus Surgical History History of appendectomy History of cholecystectomy History of hysterectomy History of uvulopalatopharyngoplasty S/P exploratory laparotomy S/P percutaneous transluminal angioplasty ([employer]) with stent placement Family History Other CAD (coronary artery disease) Social History Smoking and tobacco status: current every day smoker Second hand smoke exposure: Yes Alcohol intake: never Substance/Drug Use: never Adopted: No Caregiver/support person: Yes Lives independently: Yes Household members: none Housing: Apartment Marital status: Number of children: 5 Highest education level completed: Associate Degree: Academic Program service: No Current occupational status: retired and disabled Pets and animals: Yes Pets & animals: cat(s) Sexually active: No Do you think of yourself as: Straight/Heterosexual Current gender identity: Female Mahogany/Jainism: Rastafari [employer] Vitals/I&O/Wt Last Vital Signs Temp 94.3 F L 12/18/22 19:15 Pulse 58 L 12/18/22 21:35 Resp 23 H 12/18/22 21:35 BP 92/58 12/18/22 21:35 Pulse Ox 100 12/18/22 21:35 O2 Del Method Mechanical Ventilation 12/18/22 21:29 O2 Flow Rate 2 12/18/22 13:58 FiO2 40 12/18/22 22:00 12/18/22 12/18/22 12/19/22 14:59 22:59 06:59 Intake Total 3588.329 / 3588.329 105 / 3693.329 Output Total 200 / 200 Balance 3388.329 / 3388.329 105 / 3493.329 Weight last 48 hrs Weight 72.575 kg Physical Exam Narrative: Patient is seen intubated and sedated. Neurologic. Patient does respond to painful stimuli appropriately. Pupils are equal and reactive to light and accommodation Neck is supple no JVD or carotid bruits a right IJ is in place Lymph, no lymph adenopathy noted heart regular rate and rhythm no loud murmur no clicks gallops or rubs. Lungs: Clear to auscultation. Abdomen soft nontender nondistended no obvious signs of cirrhosis on abdominal wall Extremities no clubbing cyanosis or edema. There is discoloration in the lower half of both lower extremities suspect venous stasis changes Skin. Fair amount of bruising on the right forearm . Normal female Soriano in place Data 12/18/22 13:32 12/18/22 13:32 Other Labs: Magnesium 1.3 Micro: Microbiology 12/18/22 19:30 Blood Culture - Preliminary Blood SPECIMEN COLLECTED 12/18/22 19:16 Blood Culture - Preliminary Blood SPECIMEN COLLECTED CXR: My impression: No active disease Radiologist's impression: No acute cardiopulmonary findings EKG 1: My Interpretation: Incomplete bundle branch block [employer]ent [employer] Detective Interpretation: Sinus rhythm moderate IVCD nonspecific T wave abnormality A&P Assessment and plan (1) Altered mental status: Perhaps this is a form of hepatic encephalopathy which was documented by a possibility by Dr. Sheridan. Ammonia level is 82 which is the highest its ever been. Previously she was 51 in September 2021. I will treat with lactulose twice daily to 3 times daily. (2) Acute non-ST elevation myocardial infarction (NSTEMI): Patient presented with chest pain and has elevated troponins to approximately 250. Placed consult to Dr. Musa for consultation. (3) Acidosis, lactic: Patient received appropriate fluid (4) Hypokalemia: Replacement initiated in the emergency room. Will follow with daily labs. (5) Hypomagnesemia: Replacement initiated in the emergency room. Will follow with daily labs. (6) Cirrhosis of liver: Secondary to steatohepatitis. Qualifiers: Hepatic cirrhosis type: other cirrhosis Qualified Code(s): K74.69 - Other cirrhosis of liver (7) Steatohepatitis: (8) Nicotine dependence, cigarettes, with unspecified nicotine-induced disorders: May need nicotine patch. (9) Persistent cognitive impairment: The last MMSE that I saw documented was 20/30. This was documented as mild disease. It is noted in Dr. Sheridan's last note patient confabulates. (10) Cerebellar atrophy: Noted on CT head read by me. Plan Patient is admitted to ICU. She is given the standard ICU care including VTE an d ulcer prophylaxis. Patient is on propofol and fentanyl for sedation. Follow- up chest x-ray show fluid overload. Will decrease rate of fluids. Treatment with lactulose for the hyper ammonia level. Due to level of cognitive impairment and cerebellar atrophy will start Depakote to help with maintaining mentation and mood. This medication has been found to help with combativeness and aggressiveness in people with the above brain abnormalities. Attestations Medical Necessity Statement*: Patient is intubated due to medical condition and combativeness. She will cross 2 midnights. Coding Level of Care Code Acute Code for [facility] Fwd Diagnoses Altered mental status R41.82 Acute non-ST elevation myocardial infarction (NSTEMI) I21.4 Acidosis, lactic E87.20 Hypokalemia E87.6 Hypomagnesemia E83.42 Cirrhosis of liver K74.69 Hepatic cirrhosis type: other cirrhosis Steatohepatitis K75.81 Nicotine dependence, cigarettes, with unspecified nicotine-induced disorders F17.219 Persistent cognitive impairment R41.89 Cerebellar atrophy G31.9
--- NOTE | 2022-12-18 23:40 | ECG_ITS ---
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 Measurements Intervals [place] Rate: 58 P: 31 NM: 183 QRS: 17 QRSD: 108 T: 0 QT: 222 QTc: 220 Interpretive Statements SINUS BRADYCARDIA NONSPECIFIC T-WAVE ABNORMALITY Compared to ECG 12/18/2022 19:20:53 Sinus rhythm no longer present Intraventricular conduction delay no longer present T-wave abnormality still present Electronically Signed On 12-20-2022 12:29:33 CDT by Kylah Polk M.D. [id number]
[2022-12-18 23:50] LABS: ABG PCO2 36.3 mmHg (35-45); ABG PH Result 7.37 (7.35-7.45); Arterial Blood Gas Hematocrit 32.9 % (37-47); Base Excess ABG -3.8 mmol/L (-2.0-2.0); Blood Gas Operator Identificat JB; Blood Gas Sample Site Brachial, right; Blood Gas Sample Type Arterial; Oxygen Device VENT
[2022-12-19] VITALS (177 sets, daily range): BP systolic 77–118; BP diastolic 49–72; PULSE 56–73; RESP 6–29; TEMP 36.7–37.1; O2SAT 90–100
[2022-12-19] MEDS: propofol 1,000 MG/100 ML INJ 8.71 MG IV ×2 (01:19→15:54)
[2022-12-19] MEDS: lactulose oral liq 20 gm/30 mL UDC PO ×4 (01:59→20:30)
[2022-12-19] MEDS: cefepime 2,000 MG in sodium chloride 0.9% (plus) 50 ML 100 MG IV ×2 (02:56→16:31)
[2022-12-19] MEDS: vancomycin 1,000 MG in sodium chloride 0.9% 250 ML 250 MG IV (02:57)
[2022-12-19 05:27] LABS: Basophils # 0.1 10^3/uL (0.0-0.1); Basophils % 0.7 %; Eosinophils # 0.2 10^3/uL (0.0-0.8); Hematocrit 31.8 % (37.0-47.0); Hemoglobin 10.1 g/dL (11.5-15.3); Mean Corpuscular HGB Conc 31.8 g/dL (30.0-36.0); Mean Corpuscular Hemoglobin 28.4 pg (28.0-34.0); Mean Corpuscular Volume 89.3 fl (81-99); Mean Platelet Volume 10.7 fL (7.4-10.4); Monocytes # 1.5 10^3/uL (0.2-0.9); Monocytes % 12.3 %; Neutrophils # 7.04 10^3/uL (1.8-7.7); Neutrophils % 59.5 %; Nucleated Red Blood Cells % 0 %; Platelet Count 50 10^3/cmm (130-400); Red Blood Count 3.56 10^6/uL (4.1-5.3); Red Cell Distribution Width 16.2 % (12.1-15.1); White Blood Count 11.8 10^3/uL (4.0-10.0)
[2022-12-19 05:44] LABS: Alanine Aminotransferase 23 U/L (0-33); Albumin Level 2.4 g/dL (3.5-5.2); Alkaline Phosphatase 78 U/L (35-105); Anion Gap 10.3 (5-19); Aspartate Amino Transferase 45 U/L (0-32); Blood Urea Nitrogen 11 mg/dL (8-23); Calcium 7.6 mg/dL (8.5-10.5); Carbon Dioxide 19 mmol/L (22-29); Chloride 113 mmol/L (98-107); Cholesterol 76 mg/dL (0-200); Creatinine Clr Calc Pharmacy 64.2494; Globulin 4.3 g/dL (1.3-4.6); Glomerular Filtration Rate 99.4 mL/min (90-130); Glucose 105 mg/dL (65-115); HDL Cholesterol 38 mg/dL (60-100); LDL Cholesterol Calculated 29 mg/dL (50-129); LDL HDL Ratio 0.76 RATIO (0.00-3.22); Osmolality Calculated 288 mOsm/kg (285-295); Phosphorus 2.1 mg/dL (2.5-4.5); Potassium 3.3 mmol/L (3.5-5.1); Sodium 139 mmol/L (136-145); Total Bilirubin 1.1 mg/dL (0.15-1.2); Total Protein 6.7 g/dL (6.6-8.7); Triglycerides 44 mg/dL (0-150)
[2022-12-19 05:55] LABS: Partial Thromboplastin Time 225.6 SECONDS (23.9-36.7)
[2022-12-19] MEDS: valproic acid inj 500 MG in sodium chloride 0.9% 50 ML 55 MG IV ×2 (06:02→16:56)
--- NOTE | 2022-12-19 08:07 | PM.CONSULT ---
Providers/Reason For Consult Consulting Physician/Specialty*: ERROL Musa MD/cardiology Reason for Consult*: Patient presenting with chest pain and altered mental status. Elevated troponin T. History of CAD. Requesting Physician: Dr. Toussaint Attending Physician: Mohamud Verdugo DO Primary Care Provider: Sara Montenegro DO History of Present Illness History of Present Illness Luh Ray is a 67 year old female with a history of atherosclerotic heart disease and previous PCI apparently was having chest pain and was found to be on the floor with altered mental status by her landlord. She was brought to the emergency room and was found to be combative, not responding to medications. She got intubated in the emergency room and is admitted to hospital for further evaluation management. She was found to have an elevated troponin T with a delta of76 and 2 hours and a delta of 218 and 6 hours. This patient is not able to give any history at this point. Information is mostly from the medical records and from the clinical staff. This patient has a history of coronary artery disease and had PCI of the left artery descending artery in 2018. She had a drug-eluting stent placement in the mid LAD and balloon angioplasty of the ostial diagonal lesion which was jailed. She had a Myocardial perfusion imaging 2019 which was unremarkable. She is being followed by Dr. Polk. She has not had any significant cardiac symptoms lately. She is known to have atherosclerotic heart diseas and had PCI as mentioned above. Also has a history of hypertension, type 2 diabetes and dyslipidemia. She has a history of congestive heart failure, diabetic neuropathy, anxiety/depressive illness, GERD, thrombocytopenia, ventriculomegaly, etc. Has no family members available at this time to get any details. She has a son lives somewhere in [place] and some other family members living in [place]. At the time of my evaluation, patient is intubated and sedated. She moves spontaneously all extremities. She is on IV propofol and fentanyl. She was found to be somewhat hypotensive and was placed on Levophed 2 mics per KG per minute. She also is on a warming blanket since the temperature went down to 94. She is on empiric IV antibiotics. Review of Systems Narrative: CONSTITUTIONAL: She had a temp of 94 in the ICU EYES: No documented visual or auditory disturbances recently ENT: No recent upper respiratory infections. CARDIOVASCULAR: As mentioned above. RESPIRATORY: No history of any significant cough or shortness of breath lately GASTROINTESTINAL: History of GERD GENITOURINARY: No dysuria or hematuria. INTEGUMENTARY: No skin rashes or history of skin cancer. NEURO: History of ventriculomegaly PSYCHIATRIC: No history of psychosis or major depression. HEMATOLOGIC: History of thrombocytopenia, being followed up by the [facility] ENDOCRINE: No history of polyuria or polydipsia. MUSCULOSKELETAL: No recent joint pain or swelling. ALLERGY/IMMUNOLOGY: As mentioned above. Medications/Allergies Home Medications Medication Instructions Recorded Confirmed Last Taken Type fluticasone propionate 50 2 spray intranasal DAILY 07/15/19 12/18/22 08/22/19 History mcg/actuation nasal spray,suspension (Flonase Allergy Relief) albuterol sulfate 90 mcg/actuation 2 inh inhalation Q4H PRN shortness 10/14/19 12/18/22 Unknown Rx aerosol inhaler of breath or wheezing #18 grams aspirin 81 mg tablet,delayed 81 mg PO DAILY 04/14/21 12/18/22 10/20/21 History release blood sugar diagnostic (FreeStyle 04/14/21 12/18/22 Unknown History Test strips) blood-glucose meter (FreeStyle #1 ea 04/14/21 12/18/22 Unknown Rx Butler Lite kit) insulin needles (disposable) 30 X 04/14/21 12/18/22 Unknown History 3/4 pen needle, diabetic 31 gauge x #120 ea 04/14/21 12/18/22 Unknown Rx 3/16 (TechLITE Pen Needle) cane #1 ea 12/28/21 12/18/22 Unknown Rx biotin 800 mcg tablet 800 mcg PO DAILY 02/12/22 12/18/22 Unknown History flash glucose sensor (FreeStyle #2 ea 02/22/22 12/18/22 Unknown Rx Rox 14 Day Sensor kit) pantoprazole 40 mg tablet,delayed 40 mg PO DAILY #90 tabs 05/29/22 12/18/22 Unknown Rx release (Protonix) spironolactone 25 mg tablet See Rx Instructions .Route 07/09/22 12/18/22 Unknown Rx .COMPLEX #90 tabs atorvastatin 40 mg tablet 40 mg PO DAILY #90 tabs 08/28/22 12/18/22 Unknown Rx insulin degludec 200 unit/mL (3 See Rx Instructions .Route 08/28/22 12/18/22 Unknown Rx mL) subcutaneous pen (Tresiba .COMPLEX #9 mL FlexTouch U-200 insulin) isosorbide mononitrate 30 mg 30 mg PO DAILY #90 tabs 08/28/22 12/18/22 Unknown Rx tablet,extended release 24 hr loratadine 10 mg tablet 10 mg PO DAILY PRN Allergy Symptoms 09/11/22 12/18/22 Unknown History hydroxychloroquine 200 mg tablet 200 mg PO BID #180 tabs 09/13/22 12/18/22 Unknown Rx fluoxetine 10 mg capsule 10 mg PO DAILY 12/18/22 12/18/22 Unknown History levothyroxine 175 mcg tablet 175 mcg PO DAILY 12/18/22 12/18/22 Unknown History trazodone 100 mg tablet 100 mg PO BEDTIME 12/18/22 12/18/22 Unknown History Allergies Allergy/AdvReac Type Severity Reaction Status Date / Time meperidine [From Demerol] Allergy Severe Unconscious Verified 12/18/22 14:43 amoxicillin Allergy Intermediate Rash Verified 12/18/22 14:43 pseudoephedrine [From NyQuil] Allergy Intermediate ADR-Agitate Verified 12/18/22 14:43 d pentazocine [From Talwin] Allergy Unknown Unknown Verified 12/18/22 14:43 prochlorperazine Allergy Unknown Unknown Verified 12/18/22 14:43 [From Compazine] acetaminophen [From NyQuil] Allergy ADR-Agitate Verified 12/18/22 14:43 d dextromethorphan Allergy ADR-Agitate Verified 12/18/22 14:43 [From NyQuil] d doxylamine [From NyQuil] Allergy ADR-Agitate Verified 12/18/22 14:43 d Current Medications Generic Name Dose Route Start Last Admin Trade Name Freq PRN Reason Stop Dose Admin Heparin Sodium (Porcine) 0 unit 12/18/22 16:39 12/18/22 18:47 Heparin 5,000 Unit/Ml Inj 1 Ml IV 3,700 unit PRN PRN Administration Heparin weight-base protocol Protocol Propofol 1,000 mg in 100 mls @ 0 mls/hr 12/18/22 14:45 12/19/22 01:19 Diprivan IV 20 mcg/kg/min .Q0M EDENILSON 8.71 mls/hr Administration Protocol Per Protocol Heparin Sodium/Sodium Chloride 25,000 unit in 500 mls @ 0 mls/hr 12/18/22 16:45 12/19/22 08:02 Heparin Drip IV 8 unit/kg/hr .Q0M EDENILSON 11.61 mls/hr Titration Protocol Per Protocol Fentanyl 2,500 mcg/ Sodium 250 mls @ 0 mls/hr 12/18/22 19:30 12/18/22 19:48 Chloride IV 500 mcg/hr .Q0M EDENILSON 50 mls/hr Titration Protocol Per Protocol Valproic Acid 500 mg/ Sodium 55 mls @ 55 mls/hr 12/18/22 22:00 12/19/22 07:37 Chloride IV Infused Q8H EDENILSON Infusion Norepinephrine Bitartrate 4 mg 254 mls @ 0 mls/hr 12/19/22 02:00 12/19/22 01:59 / Dextrose IV 2 mcg/min .Q0M EDENILSON 7.62 mls/hr Administration Protocol Per Protocol Cefepime HCl 2,000 mg/ Sodium 50 mls @ 100 mls/hr 12/19/22 02:15 12/19/22 03:38 Chloride IV Infused Q12H EDENILSON Infusion Protocol Lactulose 20 gm 12/19/22 00:10 12/19/22 01:59 Lactulose Oral Liq 20 Gm/30 Ml Udc PO 20 gm TID EDENILSON Administration Pantoprazole Sodium 40 mg 12/18/22 21:22 12/18/22 22:20 Pantoprazole 40 Mg Sdv IVP 40 mg Q24H EDENILSON Administration PFSH Acute PFSH: Medical History COPD (chronic obstructive pulmonary disease) Coronary artery disease Depression with anxiety Diastolic heart failure Essential hypertension Hyperlipidemia Hypertension Hypothyroidism Type 2 diabetes mellitus Surgical History History of appendectomy History of cholecystectomy History of hysterectomy History of uvulopalatopharyngoplasty S/P exploratory laparotomy 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 Family History Other CAD (coronary artery disease) Social History Smoking and tobacco status: current every day smoker Second hand smoke exposure: Yes Alcohol intake: never Substance/Drug Use: never Adopted: No Caregiver/support person: Yes Lives independently: Yes Household members: none Housing: Apartment Marital status: Number of children: 5 Highest education level completed: Associate Degree: Academic Program service: No Current occupational status: retired and disabled Pets and animals: Yes Pets & animals: cat(s) Sexually active: No Do you think of yourself as: Straight/Heterosexual Current gender identity: Female 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: [employer] Vitals/I&O/Wt Last Vital Signs Temp 94.3 F L 12/18/22 19:15 Pulse 64 12/19/22 06:00 Resp 6 L 12/19/22 06:35 BP 87/53 12/19/22 05:20 Pulse Ox 95 12/19/22 06:35 O2 Del Method Mechanical Ventilation 12/18/22 22:08 O2 Flow Rate 2 12/18/22 13:58 FiO2 30 12/19/22 06:35 12/18/22 12/19/22 12/19/22 22:59 06:59 14:59 Intake Total 3588.329 / 3588.329 732.798 / 4321.127 55 / 55 Output Total 200 / 200 350 / 550 Balance 3388.329 / 3388.329 382.798 / 3771.127 55 / 55 Weight last 48 hrs Weight 174 lb 9.6 oz Weight 160 lb Physical Exam Narrative: GENERAL: The patient is intubated and sedated HEENT: No significant pallor, icterus or lymphadenopathy.Oral cavity: There are no mucous membrane lesions. No ulcerations or bleeding NECK: Trachea appears to be central. No masses noted. No JVD or thyromegaly appreciated. RESPIRATORY: Chest is symmetrical. No intercostals muscle retraction or any accessory muscle activation. Breath sounds are heard bilaterally. No evidence of consolidation BREASTS: Deferred. HEART: The heart sounds are normal. No S3 or S4. No significant murmurs. No pericardial rub ABDOMEN: No vessel pulsations or distention. No tenderness. No organomegaly appreciated. Bowel sounds are normally heard. : Deferred. RECTAL: Deferred. LYMPHATIC: No lymphadenopathy noted in the neck. EXTREMITIES: Spider veins bilaterally around the ankle. The dorsalis pedis and posterior pulses are palpable but weak bilaterally MUSCULOSKELETAL: No acute joint deformities or swelling SKIN: There are no significant rashes or ecchymosis NEUROPSYCHIATRIC: Patient is intubated and sedated. Seems to be moving these extremities spontaneously. No focal deficits noted. Data 12/19/22 05:17 12/19/22 05:17 Micro: Microbiology 12/19/22 00:48 Blood Culture - Preliminary Blood SPECIMEN COLLECTED 12/19/22 00:45 Blood Culture - Preliminary Blood SPECIMEN COLLECTED 12/18/22 19:30 Blood Culture - Preliminary Blood SPECIMEN COLLECTED 12/18/22 19:16 Blood Culture - Preliminary Blood SPECIMEN COLLECTED EKG 1: My Interpretation: Sinus bradycardia with a rate of [address] changes. QT prolongation with prominent U waves corrected QTc of around 600 ms. Other data: Echocardiogram done yesterday 12/18/2022 revealed Normal left ventricular size and systolic function, EF 55% . No ?regional wall motion abnormalities. Mild left ventricular ?hypertrophy. Grade I/IV diastolic dysfunction (abnormal ?relaxation filling pattern), normal to mildly elevated filling ?pressures. ?Thickened mitral valve. Moderate mitral annular calcification. ?Thickened aortic valve. Trace to mild aortic valve ?regurgitation. ?There is no pericardial effusion. ?There are no intracardiac masses. ?Compared to the study from 06/14/2017, there is improvement in ?the LV ejection fraction 07/16/19 Procedure(s): NM elder perf SPECT r/s* [id number] ?IMPRESSIONS ?1.? Unremarkable myocardial perfusion imaging ?2.? Normal LV ejection fraction of 85%. ?3.? LV wall motion analysis revealing no gross wall motion abnormalities. ?4.? Normal LV volume. ?No significant coronary ischemia, based on the above findings. ?Compared to the study from 01/29/2018, there may not be a significant change Coronary angiogram (01/30/2018) Procedure Summary ?#1 Left main is normal ?#2 LAD has luminal irregularities with approximately 40% and mid tight 95% ?stenosis, diagonal 1 has luminal irregularities ?#3 LCx is luminal irregularities ?#4 RCA has luminal irregularities with distal 50-60% stenosis. It is a ?dominant vessel ? ?Successful PCI to mid LAD with drug-eluting stent followed by balloon?angioplasty of the ostial diagonal branch jailed with mid LAD stent. ? ?Successful PCI to mid LAD. 2 wires approach was adopted. One wire was?passed into diagonal 1 other in the LAD. Lesion was prepared with 2.0 x 12?AB TREK balloon, followed by deployment of MDT DASH 2.5 x 12 mm stent ?posted at high SHAN of 18 to ensure proper approximation. Back no wire was?withdrawn out of the body from underneath the stent. LAD wire was?recrossed into the diagonal 1 over which MINI AB trek balloon 2.0?12 mm?was passed and inflated in the ostial diagonal 1 at 10 SHAN Excellent?angiographic result with RONDA-3 flow was achieved. A&P Assessment and plan (1) Acute non-ST elevation myocardial infarction (NSTEMI): The patient may be treated with the Plavix, aspirin and lipid-lowering agent. Because of the hypotension, I may hold off on any blood pressure lowering medication. Because of thrombocytopenia, it might be appropriate to have a hematology consult regarding treatment with heparin. Her platelet count seems to be stable at this point Number (2) Altered mental status: Etiology is not clear. Evaluation management as per the primary. Patient is known to have cognitive dysfunction (3) Hypertension: Currently hypotensive on a small dose of Levophed. This may be continued. (4) Hyperlipidemia: Started on Lipitor 80 mg p.o. daily. Qualifiers: Hyperlipidemia type: mixed hyperlipidemia Qualified Code(s): E78.2 - Mixed hyperlipidemia (5) Type 2 diabetes mellitus: Management as per the primary. 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 Possible hematology consult. Plan Other problems are History of diabetic neuropathy Peripheral neuropathy Multiple electrolyte imbalance including hypokalemia Lactic acidosis This patient may benefit from echocardiogram physician, to further evaluate her coronary status and decide on further management. We will try to get all of her family members if possible. The hypotension, could be related to IV medications. Her LV systolic function is within normal limits. Since Dr. Polk is her artists' model, I may discuss the case with her. Further management plan will be deferred to Dr. Polk. 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
--- NOTE | 2022-12-19 08:09 | PC.OT ---
hold OT evaluation due to intubation
[2022-12-19] MEDS: aspirin 300 mg Supp PR (10:03)
[2022-12-19] MEDS: clopidogrel 300 mg Tablet PO (10:03)
--- NOTE | 2022-12-19 11:11 | PM.PN ---
Vitals/I&O/Wt Last Vital Signs Temp 98.6 F 12/19/22 08:00 Pulse 70 12/19/22 08:00 Resp 18 12/19/22 10:07 BP 107/72 12/19/22 08:00 Pulse Ox 94 12/19/22 10:07 O2 Del Method Mechanical Ventilation 12/19/22 08:00 O2 Flow Rate 2 12/18/22 13:58 FiO2 30 12/19/22 10:07 12/18/22 12/19/22 12/19/22 22:59 06:59 14:59 Intake Total 3588.329 / 3588.329 732.798 / 4321.127 55 / 55 Output Total 200 / 200 350 / 550 Balance 3388.329 / 3388.329 382.798 / 3771.127 55 / 55 Weight last 48 hrs Weight 174 lb 9.6 oz Weight 160 lb Data 12/19/22 05:17 12/19/22 05:17 Micro: Microbiology 12/19/22 00:48 Blood Culture - Preliminary Blood SPECIMEN COLLECTED 12/19/22 00:45 Blood Culture - Preliminary Blood SPECIMEN COLLECTED 12/18/22 19:30 Blood Culture - Preliminary Blood SPECIMEN COLLECTED 12/18/22 19:16 Blood Culture - Preliminary Blood SPECIMEN COLLECTED Coding Level of Care Code Acute Code for Chg Fwd Diagnoses
[2022-12-19 11:24] LABS: Glucose Point of Care 134 mg/dL (70-110)
--- NOTE | 2022-12-19 11:40 | PC.NUTR ---
TF consult received. If medically appropriate, recommend consideration of Glucerna 1.2 beginning at @ 10 mls/hr and increasing 10 mls/hr Q8H as tolerated until goal rate of 40 mls/hr is reached with 80 mls water flush Q4H or per MD discretion. Details in RD assessment.
[2022-12-19 12:03] LABS: Partial Thromboplastin Time 76.9 SECONDS (23.9-36.7)
[2022-12-19 12:18] LABS: LAB Peripheral Smear Sent for Review
--- NOTE | 2022-12-19 16:31 | PM.PN ---
Subjective Subjective: Additional history has been able to be obtained from her sister who is currently in [place]. She reports that she talks to Luh very frequently. Luh had been complaining of chest pain on and off at least for the past 1 month. She often said that she had trouble walking and trouble climbing stairs due to chest pain. She felt as if her heart was fluttering. She had also been more lethargic easily fatigued and sleepy than usual. For some reason her levothyroxine was discontinued but has recently been resumed to get and at 175 mcg. Her sister does not know if she had resumed taking her levothyroxine or not. She does have a past history of cognitive impairment which has been diagnosed as dementia. Reviewing Dr. Sheridan's notes from August 2022, it appears patient carries a past history of hydrocephalus for which she had to undergo spinal tap for several years when [place] different [place]. In the interim she was also diagnosed with an autoimmune disorder with elevated double-stranded DNA for which she is currently on hydroxychloroquine from rheumatology. Autoimmune vasculitis was on the differential as well as autoimmune hepatitis given her liver cirrhosis. Luh has been a lifelong smoker. She does not consume any alcohol. It appears because of her liver cirrhosis is currently unknown. She did visit with a disability benefits specialist however her sister does not know the recommendations. It appears there was some talk about doing an endoscopy to look for potential paresis. Regarding her thrombocytopenia, it has slowly been worsening since 2020. Platelet counts have fallen from a baseline of 60-80 to as low as 29,000 in August 2022. 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 It appears a bone marrow biopsy was planned but this is yet to happen. Medications: Reviewed: Yes Vitals/I&O/Wt Last Vital Signs Temp 98.1 F 12/19/22 13:00 Pulse 66 12/19/22 14:00 Resp 16 12/19/22 15:30 BP 97/62 12/19/22 13:00 Pulse Ox 94 12/19/22 15:30 O2 Del Method Mechanical Ventilation 12/19/22 13:00 O2 Flow Rate 2 12/18/22 13:58 FiO2 30 12/19/22 15:30 12/19/22 12/19/22 12/19/22 06:59 14:59 22:59 Intake Total 732.798 / 4321.127 283.663 / 283.663 Output Total 350 / 550 Balance 382.798 / 3771.127 283.663 / 283.663 Weight last 48 hrs Weight 79.197 kg Weight 72.575 kg Physical Exam Narrative: General: Currently intubated and sedated, on fentanyl 50, propofol of 20. HEENT: PERRLA, pupils bilaterally equal and reactive Chest: Normal vesicular breath sounds, no added sounds, equal good air entry bilaterally CVS: S1-S2 regular, no murmurs, no tachycardia, no gallops, no rubs Abdomen: Soft, no organomegaly, bowel sounds present Neuro: Unable to assess as currently intubated and sedated. Data 12/19/22 05:17 12/19/22 05:17 Micro: Microbiology 12/19/22 00:09 Gram Stain - Final Sputum - Endotracheal Tube Aspirate 12/19/22 00:48 Blood Culture - Preliminary Blood SPECIMEN COLLECTED 12/19/22 00:45 Blood Culture - Preliminary Blood SPECIMEN COLLECTED 12/18/22 19:30 Blood Culture - Preliminary Blood SPECIMEN COLLECTED 12/18/22 19:16 Blood Culture - Preliminary Blood SPECIMEN COLLECTED A&P Assessment and plan (1) Altered mental status: patient was brought to the emergency room in an altered mental status. It appears patient carries a past medical history of dementia, hydrocephalus versus autoimmune vasculitis. Either of these may be contributing. Additionally she is noted to have elevated ammonia therefore hepatic encephalopathy remains on the differential. Her ammonia level is at 82. Per patient's sister she has been more drowsy over the past month or so. Patient is currently on lactulose 20 mg p.o. 3 times daily, to be titrated based on bowel movements. We will add rifaximin 550mg BID TSH is currently normal at 3.87 CT head with moderate diffuse white matter changes likely reflecting chronic microvascular ischemic changes. Mild diffuse ventricular dilatation similar to prior exams with a chronic communicating hydrocephalus. Plan for sedation weaning tomorrow and extubation if respiratory parameters are normal range. (2) Acute non-ST elevation myocardial infarction (NSTEMI): Patient has been having on and off chest pain over the past month and was complaining of chest pain as recently as yesterday prior to being found down. Troponin trend 6--> 81--> 224 with a delta of 75 at 2 hours and 200 at 6 hours. Echocardiogram showed a normal LVEF of 59%, mild to moderate concentric LVH without regional wall motion abnormalities Grade 1 diastolic dysfunction and mildly thickened aortic and mitral valves. EF has improved from 40% to 59% currently. Patient has a past medical history of CAD Cardiology consult appreciated Ideally would like patient to proceed to [employer] Technician, however her low platelets certainly remain a concern. Patient is currently on a heparin drip with close monitoring of her PTTs. Should patient end up requiring a stent she would need to be on dual antiplatelet therapy over the next year at least. Discussed current heparin drip and potential need for aspirin and Plavix over the next year with her outpatient high pressure operator Dr. Louis. Per Dr. Louis's recommendation, we will send a peripheral smear to evaluate for megakaryocytes/giant platelets which would be suggestive of splenic sequestration. For possibility of ITP, recommended high-dose steroids dexamethasone 40 mg daily and evaluate for platelet improvement over the next 48 hours. If platelet count remains stable without signs of active bleeding and peripheral smear suggestive of splenic sequestration, would be more reassuring to proceed with angiogram at this point. Discussed extensively the risk of potential bleeding with heparin drip and antiplatelet agents in the setting of thrombocytopenia with her sister Shreya stephens. Her sister acknowledges understanding of Luh's complicated medical history and currently complicated medical decision making and states that she would like to prioritize the heart understanding all risks of potential bleeding. Continue ASA 75mg HI daily, plavix 75mg daily, atorvastatin 80mg daily (3) Acidosis, lactic: Start IVF NS @ 75 cc/hr currently on levophed @ 2mcg (4) Hypokalemia: Replacement initiated in the emergency room. Will follow with daily labs. (5) Hypomagnesemia: Replacement initiated in the emergency room. Will follow with daily labs. (6) Cirrhosis of liver: Secondary to steatohepatitis vs autoimmune hepatitis Qualifiers: Hepatic cirrhosis type: other cirrhosis Qualified Code(s): K74.69 - Other cirrhosis of liver (7) Nicotine dependence, cigarettes, with unspecified nicotine-induced disorders: start nicotine patch. (8) Persistent cognitive impairment: (9) Cerebellar atrophy: Plan Infectious evaluation: Low probability as primary cause Ct chest B/L atelactasis vs infiltrate- would not explain degree of symptoms currently Blood cx pending no acute abdominal pathology known liver cirrhosis, enlarged spleen, perihepatic ascites Currently on cefepime, vanc empircally. plan to d/c Infectious evaluation remains negative at 48 hours. PUD prophylaxis: Protonix 40 mg IV daily DVT prophylaxis: Currently on a heparin drip Full code All updates in patient's critical illness discussed with her sister Shreya Stephens. Patient's close friend Juliette Cruz is closely involved in her care as well. Patient has a listed son Suleiman Taylor. Tried calling him for updates but goes to voicepail right away. Per Shreya, her son is not heavily involved in her care. Per Shreya, he has history of behavior issues and the patient and her son have not been getting along. Her PHI also lists a daughter John Taylor, however upon clarification it appears John is patient's ex [id number]. She is no longer involved in her life. Attestations Medical Necessity Statement*: ongoing ICU care for NSTEMI, respiratory care on ventilator, pressor support , hepatic encephalopathy Coding Level of Care Code Critical Care >/= 30 minutes Critical care time (in minutes): 75 The high probability of a clinically significant, sudden or life threatening deterioration, as referenced in this documentation, required my full and direct attention, intervention and personal management. The critical care time shown is in addition to time spent performing any reported separately billable procedures and includes the following: [x] Data and vital sign review and interpretation [x] Patient assessment, examination and intervention [x] Medication orders and management [x] Patient/Family updates as able [x] Care Coordination and Documentation. Diagnoses Altered mental status R41.82 Acute non-ST elevation myocardial infarction (NSTEMI) I21.4 Acidosis, lactic E87.20 Hypokalemia E87.6 Hypomagnesemia E83.42 Cirrhosis of liver K74.69 Hepatic cirrhosis type: other cirrhosis Nicotine dependence, cigarettes, with unspecified nicotine-induced disorders F17.219 Persistent cognitive impairment R41.89 Cerebellar atrophy G31.9
[2022-12-19] MEDS: dexamethasone 10 mg/mL INJ IVP ×2 (16:32→20:30)
[2022-12-19 17:22] LABS: Partial Thromboplastin Time 66.6 SECONDS (23.9-36.7)
[2022-12-19 17:42] LABS: Glucose Point of Care 171 mg/dL (70-110)
[2022-12-19] MEDS: sodium chloride 0.9% 1,000 ML 75 ML IV (17:45)
[2022-12-19] MEDS: insulin lispro 100 unit/1 mL SUBCUT (17:45)
[2022-12-19 18:02] LABS: Lactate (Lactic Acid level) 1.4 mmol/L (0.5-2.2)
--- NOTE | 2022-12-19 18:15 | PC.NURSE ---
Ryland performed, change in SVI of 9.1%, not fluid responsive.
[2022-12-19 20:28] LABS: Glucose Point of Care 159 mg/dL (70-110)
[2022-12-19] MEDS: atorvastatin 40 mg Tablet 80 MG PO (20:30)
[2022-12-19] MEDS: vancomycin 1,250 MG/250 ML PIGGYBACK 250 MG IV (20:30)
[2022-12-19] MEDS: pantoprazole 40 mg SDV IVP (20:31)
[2022-12-19 23:22] LABS: Partial Thromboplastin Time 60.8 SECONDS (23.9-36.7)
[2022-12-20] VITALS (236 sets, daily range): BP systolic 103–180; BP diastolic 64–117; PULSE 61–103; RESP 10–17; TEMP 36.6–36.9; O2SAT 90–100
[2022-12-20] MEDS: dexamethasone 10 mg/mL INJ IVP ×4 (01:59→23:28)
[2022-12-20] MEDS: cefepime 2,000 MG in sodium chloride 0.9% (plus) 50 ML 100 MG IV ×2 (02:00→14:09)
[2022-12-20 04:58] LABS: ABG PCO2 34.2 mmHg (35-45); ABG PH Result 7.34 (7.35-7.45); Arterial Blood Gas Hematocrit 35.8 % (37-47); Base Excess ABG -6.3 mmol/L (-2.0-2.0); Blood Gas Allen Test Pos; Blood Gas Operator Identificat MONRO; Blood Gas Sample Site Brachial, left; Blood Gas Sample Type Arterial; HCO3 ABG 18.6 mmol/L (22-26); Oxygen Device VENT; PO2 ABG 67.3 mmHg (80.0-100.0)
[2022-12-20 05:35] LABS: Basophils % 0.3 %; Hemoglobin 11.3 g/dL (11.5-15.3); Lymphocytes # 1.5 10^3/uL (0.8-4.8); Lymphocytes % 12.5 %; Mean Corpuscular HGB Conc 32.3 g/dL (30.0-36.0); Mean Corpuscular Hemoglobin 28.6 pg (28.0-34.0); Mean Corpuscular Volume 88.6 fl (81-99); Mean Platelet Volume 10.7 fL (7.4-10.4); Monocytes # 0.2 10^3/uL (0.2-0.9); Monocytes % 1.7 %; Neutrophils # 10.39 10^3/uL (1.8-7.7); Neutrophils % 84.8 %; Nucleated Red Blood Cells % 0 %; Platelet Count 61 10^3/cmm (130-400); Red Blood Count 3.95 10^6/uL (4.1-5.3); Red Cell Distribution Width 16.3 % (12.1-15.1); White Blood Count 12.3 10^3/uL (4.0-10.0)
[2022-12-20 05:52] LABS: Alanine Aminotransferase 29 U/L (0-33); Albumin Level 2.5 g/dL (3.5-5.2); Alkaline Phosphatase 87 U/L (35-105); Anion Gap 11.8 (5-19); Aspartate Amino Transferase 58 U/L (0-32); Blood Urea Nitrogen 16 mg/dL (8-23); Calcium 7.8 mg/dL (8.5-10.5); Carbon Dioxide 17 mmol/L (22-29); Chloride 112 mmol/L (98-107); Globulin 5.1 g/dL (1.3-4.6); Glomerular Filtration Rate 99.4 mL/min (90-130); Glucose 203 mg/dL (65-115); Magnesium 1.9 mg/dL (1.7-2.3); Osmolality Calculated 291 mOsm/kg (285-295); Partial Thromboplastin Time 76.5 SECONDS (23.9-36.7); Phosphorus 3.3 mg/dL (2.5-4.5); Potassium 3.8 mmol/L (3.5-5.1); Sodium 137 mmol/L (136-145); Total Bilirubin 1.2 mg/dL (0.15-1.2); Total Protein 7.6 g/dL (6.6-8.7)
[2022-12-20 05:53] LABS: Lactate (Lactic Acid level) 1.5 mmol/L (0.5-2.2)
[2022-12-20] MEDS: propofol 1,000 MG/100 ML INJ 8.71 MG IV (07:55)
[2022-12-20 08:00] LABS: Glucose Point of Care 215 mg/dL (70-110)
--- NOTE | 2022-12-20 08:23 | PC.OT ---
OT EVALUATION CONTINUES TO BE HELD DUE TO INTUBATION
[2022-12-20] MEDS: nicotine 21 mg Patch 1 PATCH TRANSDERMA (08:53)
[2022-12-20] MEDS: insulin lispro 100 unit/1 mL SUBCUT ×3 (08:53→17:32)
[2022-12-20] MEDS: clopidogrel 75 mg Tablet PO (08:53)
[2022-12-20] MEDS: lactulose oral liq 20 gm/30 mL UDC PO ×3 (08:53→23:27)
[2022-12-20] MEDS: aspirin 300 mg Supp 75 MG PR (08:53)
--- NOTE | 2022-12-20 09:27 | PM.PN ---
Subjective Subjective: No improvement in mentation, remains on levophed Medications: Reviewed: Yes Vitals/I&O/Wt Last Vital Signs Temp 98.4 F 12/20/22 07:15 Pulse 73 12/20/22 09:15 Resp 17 12/20/22 08:11 BP 106/73 12/20/22 09:20 Pulse Ox 92 12/20/22 09:20 O2 Del Method Mechanical Ventilation 12/20/22 07:15 O2 Flow Rate 2 12/18/22 13:58 FiO2 35 12/20/22 08:11 12/19/22 12/20/22 12/20/22 22:59 06:59 14:59 Intake Total 400 / 683.663 505.769 / 1189.432 Output Total 625 / 625 350 / 975 Balance -225 / 58.663 155.769 / 214.432 Weight last 48 hrs Weight 178 lb 3.2 oz Weight 174 lb 9.6 oz Weight 160 lb Physical Exam Narrative: Gen: intubated and sedated Neck: No JVD, no pallor or icterus RS: CTAB/L CVS: S1, S2+; No murmur, rub or gallop Ext: No edema, cyanosis CONTRACTS ATTORNEY: sedated Data 12/23/22 04:00 12/23/22 04:00 Micro: Microbiology 12/19/22 00:48 Blood Culture - Preliminary Blood NEGATIVE TO DATE 12/19/22 00:45 Blood Culture - Preliminary Blood NEGATIVE TO DATE 12/18/22 19:30 Blood Culture - Preliminary Blood NEGATIVE TO DATE 12/18/22 19:16 Blood Culture - Preliminary Blood NEGATIVE TO DATE 12/19/22 00:09 Gram Stain - Final Sputum - Endotracheal Tube Aspirate A&P Assessment and plan (1) Acute non-ST elevation myocardial infarction (NSTEMI): Medical management for now' -decision for cath based on patient's mentation -will monitor platelets and may have to stop DAPT and heparin based on that. (2) Altered mental status: (3) Cirrhosis of liver: Qualifiers: Hepatic cirrhosis type: other cirrhosis Qualified Code(s): K74.69 - Other cirrhosis of liver (4) Hypertension: (5) GERD (gastroesophageal reflux disease): Qualifiers: Esophagitis presence: without esophagitis Qualified Code(s): K21.9 - Gastro-esophageal reflux disease without esophagitis Attestations Medical Necessity Statement*: as per primary team Coding Level of Care Code Acute Code for Chg Fwd Diagnoses Acute non-ST elevation myocardial infarction (NSTEMI) I21.4 Altered mental status R41.82 Cirrhosis of liver K74.69 Hepatic cirrhosis type: other cirrhosis Hypertension I10 GERD (gastroesophageal reflux disease) K21.9 Esophagitis presence: without esophagitis
[2022-12-20 11:24] LABS: Glucose Point of Care 218 mg/dL (70-110)
[2022-12-20] MEDS: heparin drip 25,000 UNIT/500 ML PREMIX 12.63 UNIT IV (11:48)
--- NOTE | 2022-12-20 11:55 | PC.NURSE ---
Heparin drip running at 8.7ml/hr upon assessment of patient. Day shift nurse September, reports this as a patient access director titration. MAR updated to reflect this as well as drip replenished.
--- NOTE | 2022-12-20 13:00 | PC.NURSE ---
Heparin drip: APTT 64.0- No change per protocol.
--- NOTE | 2022-12-20 13:19 | PM.PN ---
Subjective Subjective: Platelet count improving today to 61. Hemoglobin stable. In leukocytosis at 12, suspect this is from high-dose steroids. ABG this morning at 7.3/34.2/67.3/18.6. On 35% FiO2, 400 tidal volume, PEEP of 5. Afebrile. Blood pressure 116/71 with a MAP of 85 on 4 of Levophed. Overnight production line operator was verbal reported 1 out of 3 blood cultures positive for gram-positive bacilli, however I am unable to find any record of this in the system. Medications: Reviewed: Yes Vitals/I&O/Wt Last Vital Signs Temp 98.5 F 12/20/22 12:00 Pulse 66 12/20/22 12:00 Resp 12 12/20/22 11:43 BP 116/71 12/20/22 12:00 Pulse Ox 92 12/20/22 12:00 O2 Del Method Mechanical Ventilation 12/20/22 12:00 O2 Flow Rate 2 12/18/22 13:58 FiO2 35 12/20/22 11:43 12/19/22 12/20/22 12/20/22 22:59 06:59 14:59 Intake Total 400 / 683.663 505.769 / 1189.432 81.734 / 81.734 Output Total 625 / 625 350 / 975 Balance -225 / 58.663 155.769 / 214.432 81.734 / 81.734 Weight last 48 hrs Weight 80.83 kg Weight 79.197 kg Weight 72.575 kg Physical Exam Narrative: General: Currently intubated and sedated, on fentanyl 50, propofol of 20. HEENT: PERRLA, pupils bilaterally equal and reactive Chest: Normal vesicular breath sounds, no added sounds, equal good air entry bilaterally CVS: S1-S2 regular, no murmurs, no tachycardia, no gallops, no rubs Abdomen: Soft, no organomegaly, bowel sounds present Neuro: Unable to assess as currently intubated and sedated. Data 12/20/22 05:23 12/20/22 05:23 Micro: Microbiology 12/19/22 00:48 Blood Culture - Preliminary Blood NEGATIVE TO DATE 12/19/22 00:45 Blood Culture - Preliminary Blood NEGATIVE TO DATE 12/18/22 19:30 Blood Culture - Preliminary Blood NEGATIVE TO DATE 06/27/23 19:16 Blood Culture - Preliminary Blood NEGATIVE TO DATE 12/19/22 00:09 Gram Stain - Final Sputum - Endotracheal Tube Aspirate A&P Assessment and plan (1) Altered mental status: patient was brought to the emergency room in an altered mental status. It appears patient carries a past medical history of dementia, hydrocephalus versus autoimmune vasculitis. Either of these may be contributing. Additionally she is noted to have elevated ammonia therefore hepatic encephalopathy remains on the differential. Her ammonia level is at 82. Per patient's sister she has been more drowsy over the past month or so. Patient is currently on lactulose 20 mg p.o. 3 times daily, to be titrated based on bowel movements. We will add rifaximin 550mg BID TSH is currently normal at 3.87 CT head with moderate diffuse white matter changes likely reflecting chronic microvascular ischemic changes. Mild diffuse ventricular dilatation similar to prior exams with a chronic communicating hydrocephalus. Plan for sedation weaning tomorrow and extubation if respiratory parameters are normal range. (2) Acute non-ST elevation myocardial infarction (NSTEMI): Patient has been having on and off chest pain over the past month and was complaining of chest pain as recently as yesterday prior to being found down. Troponin trend 6--> 81--> 224 with a delta of 75 at 2 hours and 200 at 6 hours. Echocardiogram showed a normal LVEF of 59%, mild to moderate concentric LVH without regional wall motion abnormalities Grade 1 diastolic dysfunction and mildly thickened aortic and mitral valves. EF has improved from 40% to 59% currently. Patient has a past medical history of CAD Cardiology consult appreciated Ideally would like patient to proceed to Button Decorating Machine Operator, however her low platelets certainly remain a concern. Patient is currently on a heparin drip with close monitoring of her PTTs. Should patient end up requiring a stent she would need to be on dual antiplatelet therapy over the next year at least. Discussed current heparin drip and potential need for aspirin and Plavix over the next year with her outpatient roll form operator Dr. Louis. Per Dr. Louis's recommendation, we will send a peripheral smear to evaluate for megakaryocytes/giant platelets which would be suggestive of splenic sequestration. For possibility of ITP, recommended high-dose steroids dexamethasone 40 mg daily and evaluate for platelet improvement over the next 48 hours. If platelet count remains stable without signs of active bleeding and peripheral smear suggestive of splenic sequestration, would be more reassuring to proceed with angiogram at this point. Discussed extensively the risk of potential bleeding with heparin drip and antiplatelet agents in the setting of thrombocytopenia with her sister Shreya stephens. Her sister acknowledges understanding of Luh's complicated medical history and currently complicated medical decision making and states that she would like to prioritize the heart understanding all risks of potential bleeding. Continue ASA 75mg MD daily, plavix 75mg daily, atorvastatin 80mg daily (3) Acidosis, lactic: Start IVF NS @ 75 cc/hr currently on levophed @ 2mcg (4) Hypokalemia: Replacement initiated in the emergency room. Will follow with daily labs. (5) Hypomagnesemia: Replacement initiated in the emergency room. Will follow with daily labs. (6) Cirrhosis of liver: Secondary to steatohepatitis vs autoimmune hepatitis Qualifiers: Hepatic cirrhosis type: other cirrhosis Qualified Code(s): K74.69 - Other cirrhosis of liver (7) Nicotine dependence, cigarettes, with unspecified nicotine-induced disorders: start nicotine patch. (8) Persistent cognitive impairment: (9) Cerebellar atrophy: Plan Infectious evaluation: Low probability as primary cause Ct chest B/L atelactasis vs infiltrate- would not explain degree of symptoms currently Blood cx pending no acute abdominal pathology known liver cirrhosis, enlarged spleen, perihepatic ascites Currently on cefepime, vanc empircally. plan to d/c Infectious evaluation remains negative at 48 hours. PUD prophylaxis: Protonix 40 mg IV daily DVT prophylaxis: Currently on a heparin drip Full code All updates in patient's critical illness discussed with her sister Shreya Stephens. Patient's close friend Juliette Cruz is closely involved in her care as well. Patient has a listed son Suleiman Taylor. Tried calling him for updates but goes to voicemail right away. Per Shreya, her son is not heavily involved in her care. Per Shreya, he has history of behavior issues and the patient and her son have not been getting along. Her PHI also lists a daughter John Taylor, however upon clarification it appears John is patient's ex [id number]. She is no longer involved in her life. Plan for today: wean sedation today, trial of spontaneous breathing, continue high dose steroids, monito platelets and any signs of bleeding Attestations Medical Necessity Statement*: ongoing ICU care , ventilatory support, pressor support Coding Level of Care Code Acute Code for Chg Fwd Moderate MDM includes number and complexity of problems actively addressed during encounter, amount and/or complexity of data reviewed/ordered and described risk of complication, morbidity or mortality of management as documented Diagnoses Altered mental status R41.82 Acute non-ST elevation myocardial infarction (NSTEMI) I21.4 Acidosis, lactic E87.20 Hypokalemia E87.6 Hypomagnesemia E83.42 Cirrhosis of liver K74.69 Hepatic cirrhosis type: other cirrhosis Nicotine dependence, cigarettes, with unspecified nicotine-induced disorders F17.219 Persistent cognitive impairment R41.89 Cerebellar atrophy G31.9
[2022-12-20] MEDS: vancomycin 1,250 MG/250 ML PIGGYBACK 250 MG IV (14:09)
--- NOTE | 2022-12-20 14:55 | PC.OT ---
OT TREATMENT HELD AGAIN TODAY DUE TO INTUBATION
--- NOTE | 2022-12-20 15:17 | PC.NURSE ---
Fentanyl: Un-spiked bag of fentanyl returned to pharmacy director.
--- NOTE | 2022-12-20 16:14 | PC.NURSE ---
Resumed care of patient.
[2022-12-20 17:20] LABS: Glucose Point of Care 193 mg/dL (70-110)
[2022-12-20 19:32] LABS: Partial Thromboplastin Time 54.9 SECONDS (23.9-36.7)
[2022-12-20] MEDS: atorvastatin 40 mg Tablet 80 MG PO (23:27)
[2022-12-20] MEDS: pantoprazole 40 mg SDV IVP (23:28)
[2022-12-20] MEDS: dexmedetomidine 400 MCG in sodium chloride 0.9% (100 ml) 100 ML IV (23:32)
[2022-12-20 23:40] LABS: Glucose Point of Care 167 mg/dL (70-110)
[2022-12-21] VITALS (185 sets, daily range): BP systolic 89–180; BP diastolic 51–117; PULSE 46–97; RESP 9–25; TEMP 36.5–36.6; O2SAT 86–100
--- NOTE | 2022-12-21 00:49 | PC.PHAR ---
Vancomycin Trough scheduled for 12/22 0100, please hold 0200 dose until drawn Will continue to follow. Thank you, Becky La [facility]
[2022-12-21] MEDS: dexamethasone 10 mg/mL INJ IVP ×4 (01:44→19:43)
[2022-12-21] MEDS: cefepime 2,000 MG in sodium chloride 0.9% (plus) 50 ML 100 MG IV ×2 (01:44→14:37)
[2022-12-21 04:03] LABS: Basophils % 0.1 %; Hematocrit 32.2 % (37.0-47.0); Hemoglobin 10.2 g/dL (11.5-15.3); Lymphocytes # 1.1 10^3/uL (0.8-4.8); Lymphocytes % 10.8 %; Mean Corpuscular HGB Conc 31.7 g/dL (30.0-36.0); Mean Corpuscular Hemoglobin 27.9 pg (28.0-34.0); Mean Platelet Volume 11.3 fL (7.4-10.4); Monocytes # 0.5 10^3/uL (0.2-0.9); Monocytes % 5.2 %; Neutrophils # 8.33 10^3/uL (1.8-7.7); Neutrophils % 83.5 %; Nucleated Red Blood Cells % 0 %; Platelet Count 38 10^3/cmm (130-400); Red Blood Count 3.66 10^6/uL (4.1-5.3); Red Cell Distribution Width 16.2 % (12.1-15.1)
[2022-12-21 04:15] LABS: Partial Thromboplastin Time 52.2 SECONDS (23.9-36.7)
[2022-12-21 04:26] LABS: Alanine Aminotransferase 27 U/L (0-33); Albumin Level 2.4 g/dL (3.5-5.2); Alkaline Phosphatase 83 U/L (35-105); Anion Gap 12.7 (5-19); Aspartate Amino Transferase 49 U/L (0-32); Blood Urea Nitrogen 22 mg/dL (8-23); Calcium 7.9 mg/dL (8.5-10.5); Carbon Dioxide 17 mmol/L (22-29); Chloride 111 mmol/L (98-107); Globulin 4.6 g/dL (1.3-4.6); Glomerular Filtration Rate 99.4 mL/min (90-130); Glucose 193 mg/dL (65-115); Magnesium 1.9 mg/dL (1.7-2.3); Osmolality Calculated 293 mOsm/kg (285-295); Phosphorus 3.3 mg/dL (2.5-4.5); Potassium 3.7 mmol/L (3.5-5.1); Sodium 137 mmol/L (136-145); Total Bilirubin 0.9 mg/dL (0.15-1.2)
[2022-12-21 04:30] LABS: Slide Review Slide Review Perform
[2022-12-21 05:35] LABS: ABG PCO2 29.6 mmHg (35-45); ABG PH Result 7.44 (7.35-7.45); Alveolar-Arterial Oxygen Gradi 14.6 mmHg (5-10); Arterial Blood Gas Hematocrit 33.2 % (37-47); Base Excess ABG -3.5 mmol/L (-2.0-2.0); Blood Gas Allen Test Pos; Blood Gas Operator Identificat JB; Blood Gas Sample Site Radial, right; Blood Gas Sample Type Arterial; Carboxyhemoglobin 1.4 %THgb (0.4-20.1); HCO3 ABG 19.9 mmol/L (22-26); HGB O2 Sat 91.6 % (95-100); Ionized Calcium Level - ABG 1.2 mmol/L (1.1-1.4); Oxygen Device VENT; Oxygen Saturation ABG 93.8; PO2 ABG 63.5 mmHg (80.0-100.0); Potassium Level - ABG 3.8 mmol/L (3.5-5.0); Total Hemoglobin 10.8 g/dL (12-16)
[2022-12-21 07:34] LABS: Glucose Point of Care 237 mg/dL (70-110)
[2022-12-21] MEDS: vancomycin 1,250 MG/250 ML PIGGYBACK 250 MG IV (08:33)
[2022-12-21] MEDS: nicotine 21 mg Patch 1 PATCH TRANSDERMA (08:33)
[2022-12-21] MEDS: aspirin 300 mg Supp 75 MG PR (08:33)
[2022-12-21] MEDS: clopidogrel 75 mg Tablet PO (08:33)
[2022-12-21] MEDS: insulin lispro 100 unit/1 mL SUBCUT ×4 (08:43→21:10)
[2022-12-21 09:36] LABS: Partial Thromboplastin Time 77.3 SECONDS (23.9-36.7)
--- NOTE | 2022-12-21 11:22 | CT_ITS ---
WS: [id number] CT HEAD NONCONTRAST HISTORY: AMS, off sedation x 24 hrs, evaluate bleed TECHNIQUE: Contiguous axial imaging performed through the brain in 2.5 mm imaging. Bone and soft tiss ue windows. Sagittal and coronal reformats reviewed. All CT scans at [facility] use at least one of these dose optimization techniques: automated exposure control; mA and/or kV adjustment per pa tient size (includes targeted exams where dose is matched to clinical indication); or iterative recon struction. DLP: 1068.48 mGy.cm COMPARISON: 12/18/2022. Severe motion artifact. No large areas of hemorrhage are identified. There is mild atrophy and small vessel ischemic disease. Smaller areas of bleeding would easily be obscured with this amount of motion. No large territory infarct or sulcal effacement. There is small vessel ischemic disease but the exten t is difficult to determine. Ventricles: Mild ventriculomegaly. No inferior displacement of the cerebellar tonsils. Paranasal sinuses: As visualized are clear. Mastoid air cells: Well pneumatized. Calvarium and scalp: Skull is intact with no soft tissue edema or swelling. CT/CT head wo con* [id number] IMPRESSION: 1. Quality of this examination is significantly degraded by motion artifact. 2. No large areas of hemorrhage or edema are identified. Smaller areas of bloo d cannot be excluded. 3. Mild ventriculomegaly.
[2022-12-21 11:34] LABS: Glucose Point of Care 202 mg/dL (70-110)
--- NOTE | 2022-12-21 13:39 | PC.SOCIAL ---
IMM update IMM not updated as patient is intubated and no family at bedside. Patient not expected to dc in 24-48 hours.
--- NOTE | 2022-12-21 14:06 | P.CONIM_ITS ---
Providers/Reason For Consult Consulting Physician/Specialty*: Dr. Sheridan, Neurology Reason for Consult*: Neurologic problems Requesting Physician: Dr. Freda Boyer MD Attending Physician: Freda Boyer MD Primary Care Provider: Sara Montenegro DO History of Present Illness History of Present Illness Luh Ray is a 67 year old female who is known to me. She was referred to me in February 2022 for an unsteady gait that started a year before. More than 6 years ago she had multiple spinal taps for ventriculomegaly by a neurologist in [place]. We have CAT scans dating back to 2012 that document diffuse atrophy and ventriculomegaly. When I saw her in August she scored 20/30 on cognitive exam. It was my impression that she had Alzheimer's disease. She has cirrhosis from [place]. She has nonspecific connective tissue disease for which she has been under the care of rheumatology. She was noncompliant on galantamine and she told Dr. Montenegro that I stopped the drug but in fact I told her to take what ever she would take of it and she stopped it. She was not compliant on her thyroid medicine. She lives alone. She was brought in by EMS 12/18/2022 and she was combative enough that she had to be restrained by EMS with Ativan and Haldol. Her rehabilitation center manager called 911. She did not have any focal findings. Medications/Allergies Home Medications Medication Instructions Recorded Confirmed Last Taken Type fluticasone propionate 50 2 spray intranasal DAILY 07/15/19 12/18/22 08/22/19 History mcg/actuation nasal spray,suspension (Flonase Allergy Relief) albuterol sulfate 90 mcg/actuation 2 inh inhalation Q4H PRN shortness 10/14/19 12/18/22 Unknown Rx aerosol inhaler of breath or wheezing #18 grams aspirin 81 mg tablet,delayed 81 mg PO DAILY 04/14/21 12/18/22 10/20/21 History release blood sugar diagnostic (FreeStyle 04/14/21 12/18/22 Unknown History Test strips) blood-glucose meter (FreeStyle #1 ea 04/14/21 12/18/22 Unknown Rx [place] Lite kit) insulin needles (disposable) 30 X 04/14/21 12/18/22 Unknown History 3/4 pen needle, diabetic 31 gauge x #120 ea 04/14/21 12/18/22 Unknown Rx 3/16 (TechLITE Pen Needle) cane #1 ea 12/28/21 12/18/22 Unknown Rx biotin 800 mcg tablet 800 mcg PO DAILY 02/12/22 12/18/22 Unknown History flash glucose sensor (FreeStyle #2 ea 02/22/22 12/18/22 Unknown Rx Rox 14 Day Sensor kit) pantoprazole 40 mg tablet,delayed 40 mg PO DAILY #90 tabs 05/29/22 12/18/22 Unknown Rx release (Protonix) spironolactone 25 mg tablet See Rx Instructions .Route 07/09/22 12/18/22 Unknown Rx .COMPLEX #90 tabs atorvastatin 40 mg tablet 40 mg PO DAILY #90 tabs 08/28/22 12/18/22 Unknown Rx insulin degludec 200 unit/mL (3 See Rx Instructions .Route 08/28/22 12/18/22 Unknown Rx mL) subcutaneous pen (Tresiba .COMPLEX #9 mL FlexTouch U-200 insulin) isosorbide mononitrate 30 mg 30 mg PO DAILY #90 tabs 08/28/22 12/18/22 Unknown Rx tablet,extended release 24 hr loratadine 10 mg tablet 10 mg PO DAILY PRN Allergy Symptoms 09/11/22 12/18/22 Unknown History hydroxychloroquine 200 mg tablet 200 mg PO BID #180 tabs 09/13/22 12/18/22 Unknown Rx fluoxetine 10 mg capsule 10 mg PO DAILY 12/18/22 12/18/22 Unknown History levothyroxine 175 mcg tablet 175 mcg PO DAILY 12/18/22 12/18/22 Unknown History trazodone 100 mg tablet 100 mg PO BEDTIME 12/18/22 12/18/22 Unknown History Allergies Allergy/AdvReac Type Severity Reaction Status Date / Time meperidine [From Demerol] Allergy Severe Unconscious Verified 12/18/22 14:43 amoxicillin Allergy Intermediate Rash Verified 12/18/22 14:43 pseudoephedrine [From NyQuil] Allergy Intermediate ADR-Agitate Verified 12/18/22 14:43 d pentazocine [From Talwin] Allergy Unknown Unknown Verified 12/18/22 14:43 prochlorperazine Allergy Unknown Unknown Verified 12/18/22 14:43 [From Compazine] acetaminophen [From NyQuil] Allergy ADR-Agitate Verified 12/18/22 14:43 d dextromethorphan Allergy ADR-Agitate Verified 12/18/22 14:43 [From NyQuil] d doxylamine [From NyQuil] Allergy ADR-Agitate Verified 12/18/22 14:43 d Current Medications Generic Name Dose Route Start Last Admin Trade Name Freq PRN Reason Stop Dose Admin Aspirin 75 mg 12/20/22 09:00 12/21/22 08:33 Aspirin 300 Mg Supp [place] 75 mg DAILY EDENILSON Administration Atorvastatin Calcium 80 mg 12/19/22 21:00 12/20/22 23:27 Atorvastatin 40 Mg Tablet PO 80 mg BEDTIME EDENILSON Administration Clopidogrel Bisulfate 75 mg 12/20/22 09:00 12/21/22 08:33 Clopidogrel 75 Mg Tablet PO 75 mg DAILY EDENILSON Administration Dexamethasone 10 mg 12/19/22 13:45 12/21/22 08:33 Dexamethasone 10 Mg/Ml Inj IVP 12/22/22 13:44 10 mg Q6H EDENILSON Administration Propofol 1,000 mg in 100 mls @ 0 mls/hr 12/18/22 14:45 12/20/22 13:00 Diprivan IV 0 mcg/kg/min .Q0M EDENILSON 0 mls/hr Titration Protocol Per Protocol Fentanyl 2,500 mcg/ Sodium 250 mls @ 0 mls/hr 12/18/22 19:30 12/20/22 13:00 Chloride IV Infused .Q0M EDENILSON Titration Protocol Per Protocol Norepinephrine Bitartrate 4 mg 254 mls @ 0 mls/hr 12/19/22 02:00 12/20/22 15:30 / Dextrose IV 0 mcg/min .Q0M EDENILSON 0 mls/hr Titration Protocol Per Protocol Cefepime HCl 2,000 mg/ Sodium 50 mls @ 100 mls/hr 12/19/22 02:15 12/21/22 02:14 Chloride IV Infused Q12H EDENILSON Infusion Protocol Vancomycin/PEG/NADA/Lysine/Water 1,250 mg in 250 mls @ 250 mls/hr 12/19/22 20:00 12/21/22 09:35 Vancocin IV Infused Q18H EDENILSON Infusion Dexmedetomidine HCl 400 mcg/ 104 mls @ 0 mls/hr 12/20/22 10:45 12/21/22 08:23 Sodium Chloride IV 0 mcg/kg/hr .Q0M EDENILSON 0 mls/hr Titration Protocol Per Protocol Insulin Human Lispro 0 unit 12/19/22 18:00 12/21/22 12:32 Insulin Lispro 100 Unit/1 Ml SUBCUT 4 unit WM&BEDTIME EDENILSON Administration Protocol Lactulose 20 gm 12/19/22 00:10 12/21/22 08:34 Lactulose Oral Liq 20 Gm/30 Ml Udc PO Not Given TID EDENILSON Nicotine 1 patch 12/20/22 09:00 12/21/22 08:33 Nicotine 21 Mg Patch TRANSDERMA 1 patch DAILY EDENILSON Administration Pantoprazole Sodium 40 mg 12/18/22 21:22 12/20/22 23:28 Pantoprazole 40 Mg Sdv IVP 40 mg Q24H EDENILSON Administration Rifaximin 550 mg 12/19/22 18:00 12/21/22 08:33 Rifaximin 550 Mg Tablet NG-TUBE 550 mg BID EDENILSON Administration Protocol PFSH Acute PFSH: Medical History COPD (chronic obstructive pulmonary disease) Coronary artery disease Depression with anxiety Diastolic heart failure Essential hypertension Hyperlipidemia Hypertension Hypothyroidism Type 2 diabetes mellitus Surgical History History of appendectomy History of cholecystectomy History of hysterectomy History of uvulopalatopharyngoplasty S/P exploratory laparotomy S/P percutaneous transluminal angioplasty ([employer]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) with stent placement Family History Other CAD (coronary artery disease) Social History Smoking and tobacco status: current every day smoker Second hand smoke exposure: Yes Alcohol intake: never Substance/Drug Use: never Adopted: No Caregiver/support person: Yes Lives independently: Yes Household members: none Housing: Apartment Marital status: Number of children: 5 Highest education level completed: Associate Degree: Academic Program service: No Current occupational status: retired and disabled Pets and animals: Yes Pets & animals: cat(s) Sexually active: No Do you think of yourself as: Straight/Heterosexual Current gender identity: Female [employer]ogany/L[employer] Day: [employer] Vitals/I&O/Wt Last Vital Signs Temp 97.7 F 12/21/22 07:25 Pulse 53 L 12/21/22 08:10 Resp 9 L 12/21/22 11:35 BP 121/71 12/21/22 08:10 Pulse Ox 94 12/21/22 11:35 O2 Del Method Mechanical Ventilation 12/21/22 07:25 O2 Flow Rate 2 12/18/22 13:58 FiO2 30 12/21/22 12:00 12/20/22 12/21/22 12/21/22 22:59 06:59 14:59 Intake Total 653.036 / 984.603 150.591 / 1135.194 389.301 / 389.301 Output Total 750 / 750 300 / 1050 Balance -96.964 / 234.603 -149.409 / 85.194 389.301 / 389.301 Weight last 48 hrs Weight 178 lb 8 oz Weight 178 lb 3.2 oz Data 12/21/22 03:10 12/21/22 03:10 Micro: Microbiology 12/19/22 00:09 Gram Stain - Final Sputum - Endotracheal Tube Aspirate Sputum Culture - Preliminary Coding Level of Care Code Acute Code for Chg Fwd Diagnoses
[2022-12-21] MEDS: lactulose oral liq 20 gm/30 mL UDC PO ×4 (14:37→23:48)
[2022-12-21] MEDS: propofol 1,000 MG/100 ML INJ 2.18 MG IV (14:52)
[2022-12-21 15:31] LABS: Partial Thromboplastin Time 34.8 SECONDS (23.9-36.7)
[2022-12-21] MEDS: nystatin 100,000 unit/mL UDC 5 mL 500000 UNIT PO ×2 (16:42→21:53)
--- NOTE | 2022-12-21 17:24 | P.PN_ITS ---
Subjective Subjective: Patient examined multiple times during course of the day. Overnight patient had been on Precedex as it appears she got agitated, Precedex was then taken off as she developed interim bradycardia. This morning while taking of Precedex for the first 4 or 5 hours patient remained minimally responsive, however by 1 PM she started to become more awake, moving both extremities trying to get off her restraints, trying to sit up in bed, however did not follow any any commands and did not have any directed responses. She did not not respond to commands. Due to her ongoing agitation, she was placed back on fentanyl and propofol on the ventilator. She did well with a spontaneous breathing trial when she was not agitated in the morning. Pulling tidal volumes close to 500 cc on minimal vent settings. Platelet count has fallen further to 38,000 today. No signs of bleeding currently. Off Levophed now Medications: Reviewed: Yes Vitals/I&O/Wt Last Vital Signs Temp 97.9 F 12/21/22 17:12 Pulse 52 L 12/21/22 17:12 Resp 25 H 12/21/22 17:12 BP 115/66 12/21/22 17:12 Pulse Ox 97 12/21/22 17:12 O2 Del Method Mechanical Ventilation 12/21/22 07:25 O2 Flow Rate 2 12/18/22 13:58 FiO2 30 12/21/22 16:35 12/21/22 12/21/22 12/21/22 06:59 14:59 22:59 Intake Total 150.591 / 1135.194 425.968 / 425.968 226.215 / 652.183 Output Total 300 / 1050 Balance -149.409 / 85.194 425.968 / 425.968 226.215 / 652.183 Weight last 48 hrs Weight 80.966 kg Weight 80.83 kg Physical Exam Narrative: General: Agitated when off Precedex and sedation HEENT: PERRLA, pupils bilaterally equal and reactive, pallors not present Chest: Normal vesicular breath sounds, no added sounds, equal good air entry b ilaterally CVS: S1-S2 regular, no murmurs, no tachycardia, no gallops, no rubs Abdomen: Soft, nontender, no organomegaly, bowel sounds present Neuro: Agitated off sedation, moving 4 extremities though not following any commands. Data 12/21/22 03:10 12/21/22 03:10 Micro: Microbiology 12/19/22 00:09 Gram Stain - Final Sputum - Endotracheal Tube Aspirate Sputum Culture - Preliminary Coag positive Staphylococcus A&P Assessment and plan (1) Altered mental status: patient was brought to the emergency room in an altered mental status This may be related to her underlying dementia, metabolic encephalopathy from elevated ammonia, hepatic encephalopathy Her ammonia level is at 82. Per patient's sister she has been more drowsy over the past month or so. Patient is currently on lactulose 20 mg p.o. 3 times daily, currently having 2-3 bowel movements a day Continue rifaximin 550mg BID TSH is currently normal at 3.87 CT head with moderate diffuse white matter changes likely reflecting chronic microvascular ischemic changes. Mild diffuse ventricular dilatation similar to prior exams with a chronic communicating hydrocephalus. Significantly agitated on weaning trial today for which she had to be placed back on the ventilator as anticipate patient would not have allowed continuation of her IV medications, mental status not good enough to be taking oral lactulose etc. Resume her home doses of trazodone and fluoxetine, add Zyprexa (2) Acute non-ST elevation myocardial infarction (NSTEMI): Patient has been having on and off chest pain over the past month and was complaining of chest pain as recently as prior to being found down. Troponin trend 6--> 81--> 224 with a delta of 75 at 2 hours and 200 at 6 hours. Echocardiogram showed a normal LVEF of 59%, mild to moderate concentric LVH without regional wall motion abnormalities Grade 1 diastolic dysfunction and mildly thickened aortic and mitral valves. EF has improved from 40% to 59% currently. 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 Also concerning is that patient's mental status is not accurately delineated at this point. She is agitated, not currently following any commands. Discontinue heparin drip today as platelets are trending to fall down to 38,000. Patient will likely end up with medical management given her thrombocytopenia and unclear mental status at this time. Continue ASA 75mg ME daily, plavix 75mg daily, atorvastatin 80mg daily (3) Thrombocytopenia: Chronic, case discussed with her outpatient oncologist/marketing automation manager Per Dr. Louis's recommendation, sent peripheral smear to evaluate for giant platelets which would be suggestive of splenic sequestration. No giant platelets were seen on the peripheral smear per pathologist. No signs of splenic sequestration per review of peripheral smear. 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 Patient will need bone marrow biopsy for definitive diagnosis Recommended that for now transfuse patient's to keep a platelet count closer to 70,000 during the acute phase and while undergoing cardiac management. Bone marrow biopsy deferred to outpatient. For possibility of ITP, recommended high-dose steroids dexamethasone 40 mg daily for 96 hours Thus far there is no improvement in platelet count, in fact it has dropped from 60,000-30,000 today Discussed extensively the risk of potential bleeding with heparin drip and antiplatelet agents in the setting of thrombocytopenia with her sister Shreya stephens. Her sister acknowledges understanding of Luh's complicated medical history and currently complicated medical decision making and states that she would like to prioritize the heart understanding all risks of potential bleeding. (4) Acidosis, lactic: Now resolved (5) Hypokalemia: Resolved (6) Hypomagnesemia: (7) Cirrhosis of liver: Secondary to steatohepatitis vs autoimmune hepatitis Recently established with inker and opaquer as outpatient Qualifiers: Hepatic cirrhosis type: other cirrhosis Qualified Code(s): K74.69 - Other cirrhosis of liver (8) Nicotine dependence, cigarettes, with unspecified nicotine-induced disorders: start nicotine patch. (9) Persistent cognitive impairment: Likely related to known dementia (10) Cerebellar atrophy: Plan Infectious evaluation: Low probability as primary cause Ct chest B/L atelactasis vs infiltrate- would not explain degree of symptoms currently Blood cx negative to date no acute abdominal pathology known liver cirrhosis, enlarged spleen, perihepatic ascites Initially blood cultures were reported as positive for gram-positive bacilli, per confirmation with lab today, this was likely reported on the wrong patient. Patient's blood cultures are currently negative to date Discontinue cefepime and vancomycin PUD prophylaxis: Protonix 40 mg IV daily DVT prophylaxis: Contraindicated given following platelets Full code All updates in patient's critical illness discussed with her sister Shreya Stephens. Attestations Medical Necessity Statement*: Turn off heparin drip today, failed weaning trial today, will attempt again tomorrow Coding Level of Care Code Acute Code for Chg Fwd Diagnoses Altered mental status R41.82 Acute non-ST elevation myocardial infarction (NSTEMI) I21.4 Thrombocytopenia D69.6 Acidosis, lactic E87.20 Hypokalemia E87.6 Hypomagnesemia E83.42 Cirrhosis of liver K74.69 Hepatic cirrhosis type: other cirrhosis Nicotine dependence, cigarettes, with unspecified nicotine-induced disorders F17.219 Persistent cognitive impairment R41.89 Cerebellar atrophy G31.9
[2022-12-21 17:27] LABS: Glucose Point of Care 219 mg/dL (70-110)
--- NOTE | 2022-12-21 17:47 | PC.NURSE ---
WILLARD seals in Fentanyl at 1608. typed the 25 in the wrong location and showed running at higher rate than actual. Went in and corrected error in WILLARD, would not give a location for comment.
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
[2022-12-21] MEDS: valproic acid inj 500 MG in sodium chloride 0.9% 50 ML 55 MG IV (21:05)
[2022-12-21] MEDS: trazodone 100 mg Tablet PO (21:11)
[2022-12-21] MEDS: pantoprazole 40 mg SDV IVP (21:11)
[2022-12-21] MEDS: atorvastatin 40 mg Tablet 80 MG PO (21:11)
[2022-12-21 22:14] LABS: Ammonia 184 umol/L (11-51)
[2022-12-21 22:59] LABS: Glucose Point of Care 181 mg/dL (70-110)
[2022-12-22] VITALS (64 sets, daily range): BP systolic 90–150; BP diastolic 58–84; PULSE 53–83; RESP 8–20; TEMP 37–37.1; O2SAT 93–100; BMI 33.7
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
[2022-12-22] MEDS: lactulose oral liq 20 gm/30 mL UDC PO ×6 (00:54→17:02)
[2022-12-22] MEDS: dexamethasone 10 mg/mL INJ IVP ×4 (00:54→20:58)
--- NOTE | 2022-12-22 03:13 | P.MISC_ITS ---
Miscellaneous Note Purpose of Documentation: Overnight events Note: Checked on patient tonight due to expectation of extubation. Viewed chart and spoke with RN. Patient remained disoriented and agitated with removal of sedation. There is question surrounding altered mental status. I noted that ammonia level had not been rechecked since admission and ordered stat level. It was severely and significantly higher than on admission at 184 compared to 82. To confirm definitive treatment I consulted with [facility]. * Recommendation is to treat by feeding patient adequate protein and calories. * Thus I started her on tube feedings. * The second recommendation is lactulose starting with 30 cc every hour until 2 bowel movements are obtained. Then continue lactulose every 3-6 hours to ensure 3-5 bowel movements a day. * Thus far, patient is having liquid stool. The nurse requested a rectal tube which was ordered. * At time of this dictation at 3 AM we will adjust to approximately every 3 hour lactulose administration. Next dose around 5 AM. Of note I initially started Depakote for brain glue however now that a definitive cause of altered mental status being hepatic encephalopathy, I will discontinue.
[2022-12-22] MEDS: propofol 1,000 MG/100 ML INJ 4.36 MG IV (04:08)
[2022-12-22 04:36] LABS: Hematocrit 30.9 % (37.0-47.0); Hemoglobin 10.1 g/dL (11.5-15.3); Lymphocytes # 0.8 10^3/uL (0.8-4.8); Lymphocytes % 9.8 %; Mean Corpuscular HGB Conc 32.7 g/dL (30.0-36.0); Mean Corpuscular Hemoglobin 28.9 pg (28.0-34.0); Mean Corpuscular Volume 88.5 fl (81-99); Mean Platelet Volume 10.6 fL (7.4-10.4); Monocytes # 0.2 10^3/uL (0.2-0.9); Monocytes % 2.3 %; Neutrophils # 6.81 10^3/uL (1.8-7.7); Neutrophils % 87.5 %; Nucleated Red Blood Cells % 0 %; Platelet Count 73 10^3/cmm (130-400); Red Blood Count 3.49 10^6/uL (4.1-5.3); Red Cell Distribution Width 16.4 % (12.1-15.1); White Blood Count 7.8 10^3/uL (4.0-10.0)
[2022-12-22 04:53] LABS: Ammonia 148 umol/L (11-51)
[2022-12-22 04:57] LABS: Alanine Aminotransferase 27 U/L (0-33); Albumin Level 2.6 g/dL (3.5-5.2); Alkaline Phosphatase 76 U/L (35-105); Aspartate Amino Transferase 40 U/L (0-32); Blood Urea Nitrogen 27 mg/dL (8-23); Calcium 8.4 mg/dL (8.5-10.5); Carbon Dioxide 20 mmol/L (22-29); Chloride 112 mmol/L (98-107); Globulin 4.5 g/dL (1.3-4.6); Glomerular Filtration Rate 99.4 mL/min (90-130); Glucose 211 mg/dL (65-115); Osmolality Calculated 303 mOsm/kg (285-295); Sodium 141 mmol/L (136-145); Total Bilirubin 0.8 mg/dL (0.15-1.2); Total Protein 7.1 g/dL (6.6-8.7)
--- NOTE | 2022-12-22 07:41 | P.PN_ITS ---
Subjective Subjective: Cardiology coverage patient remains intubated. Currently attempts were made to extubate her ye sterday. Since she became combative, it was aborted. Her vitals are stable. she remains afebrile She was found to have a elevated serum ammonia levels. She is on lactulose. Has had rectal tube. Medications: Medication Review Details: Current Medications Aspirin (Aspirin 300 Mg Supp) 75 mg NE DAILY [facility] Last Admin: 12/21/22 08:33 Dose: 75 mg Atorvastatin Calcium (Atorvastatin 40 Mg Tablet) 80 mg PO BEDTIME [facility] Last Admin: 12/21/22 21:11 Dose: 80 mg Clopidogrel Bisulfate (Clopidogrel 75 Mg Tablet) 75 mg PO DAILY [facility] Last Admin: 12/21/22 08:33 Dose: 75 mg Dexamethasone (Dexamethasone 10 Mg/Ml Inj) 10 mg IVP Q6H [facility] Stop: 12/24/22 13:44 Last Admin: 12/22/22 00:54 Dose: 10 mg Dextrose (Dextrose 50% Syringe 50 Ml) 50 ml IVP PRN PRN; Protocol PRN Reason: hypoglycemia protocol Dextrose (Dextrose 50% Syringe 50 Ml) 25 ml IVP ONCE PRN; Protocol PRN Reason: hypoglycemia protocol Fluoxetine HCl (Fluoxetine 10 Mg Capsule) 10 mg PO DAILY [facility] Glucagon (Glucagon 1 Mg/Ml Inj 1 Ml) 1 mg IM ONCE PRN; Protocol PRN Reason: Adult Acute Hypoglycemia Prot. Propofol (Diprivan) 1,000 mg in 100 mls @ 0 mls/hr IV .Q0M [facility]; Protocol Last Admin: 12/22/22 04:08 Dose: 10 mcg/kg/min, 4.36 mls/hr Fentanyl 2,500 mcg/ Sodium (Chloride) 250 mls @ 0 mls/hr IV .Q0M [facility]; Protocol Last Titration: 12/22/22 04:50 Dose: 50 mcg/hr, 5 mls/hr Norepinephrine Bitartrate 4 mg (/ Dextrose) 254 mls @ 0 mls/hr IV .Q0M [facility]; Protocol Last Titration: 12/21/22 14:53 Dose: Infused Dextrose (D5w) 500 mls @ 100 mls/hr IV ONCE PRN; Protocol PRN Reason: Adult Acute Hypoglycemia Prot Insulin Human Lispro (Insulin Lispro 100 Unit/1 Ml) 0 unit SUBCUT WM&BEDTIME [facility]; Protocol Last Admin: 12/21/22 21:10 Dose: 4 unit Lactulose (Lactulose Oral Liq 20 Gm/30 Ml Udc) 20 gm PO Q1H PRN PRN Reason: to induce Bowel Movement Last Admin: 12/22/22 05:02 Dose: 20 gm Nicotine (Nicotine 21 Mg Patch) 1 patch TRANSDERMA DAILY [facility] Last Admin: 12/21/22 08:33 Dose: 1 patch Nystatin (Nystatin 100,000 Unit/Ml Udc 5 Ml) 500,000 unit PO QID [facility] Last Admin: 12/21/22 21:53 Dose: 500,000 unit Olanzapine (Olanzapine 5 Mg Odt) 2.5 mg PO DAILY [facility] Pantoprazole Sodium (Pantoprazole 40 Mg Sdv) 40 mg IVP Q24H [facility] Last Admin: 12/21/22 21:11 Dose: 40 mg Rifaximin (Rifaximin 550 Mg Tablet) 550 mg NG-TUBE BID [facility]; Protocol Last Admin: 12/21/22 17:14 Dose: 550 mg Trazodone HCl (Trazodone 100 Mg Tablet) 100 mg PO BEDTIME [facility] Last Admin: 12/21/22 21:11 Dose: 100 mg Vitals/I&O/Wt Last Vital Signs Temp 97.7 F 12/21/22 17:43 Pulse 67 12/22/22 06:00 Resp 15 12/22/22 06:43 BP 121/70 12/22/22 06:00 Pulse Ox 97 12/22/22 06:43 O2 Del Method Mechanical Ventilation 12/21/22 22:08 O2 Flow Rate 2 12/18/22 13:58 FiO2 30 12/22/22 06:43 12/21/22 12/22/22 12/22/22 22:59 06:59 14:59 Intake Total 528.299 / 954.267 279.784 / 1234.051 Output Total 350 / 350 1050 / 1400 Balance 178.299 / 604.267 -770.216 / -165.949 Weight last 48 hrs Weight 190 lb 9.6 oz Weight 178 lb 8 oz Physical Exam Narrative: GENERAL: The patient is intubated and sedated. Currently she is not responding to any verbal command. Seems to be moving all the extremities HEENT: No significant pallor, icterus or lymphadenopathy.Oral cavity: There are no mucous membrane lesions. No ulcerations or bleeding NECK: Trachea appears to be central. No masses noted. No JVD or thyromegaly appreciated. RESPIRATORY: Chest is symmetrical. No intercostals muscle retraction or any accessory muscle activation. Breath sounds are heard bilaterally. No evidence of consolidation BREASTS: Deferred. HEART: The heart sounds are normal. No S3 or S4. No significant murmurs. No pericardial rub ABDOMEN: No vessel pulsations or distention. No tenderness. No organomegaly appreciated. Bowel sounds are normally heard. : Deferred. RECTAL: Deferred. LYMPHATIC: No lymphadenopathy noted in the neck. EXTREMITIES: Spider veins bilaterally around the ankle. The dorsalis pedis and posterior pulses are palpable but weak bilaterally MUSCULOSKELETAL: No acute joint deformities or swelling SKIN: There are no significant rashes or ecchymosis NEUROPSYCHIATRIC: Patient is intubated and sedated. No focal deficits noted. Urinary Catheter Management: Soriano: Cath Placed During This Visit: no Reason for Continuing Indwelling Catheter: Accurate Measurement of Urinary Output in Critically Ill Patients Data 12/22/22 04:05 12/22/22 04:05 Other Labs: Laboratory Last Values WBC 7.8 10^3/uL (4.0-10.0) 12/22/22 04:05 RBC 3.49 10^6/uL (4.1-5.3) L 12/22/22 04:05 Hgb 10.1 g/dL (11.5-15.3) L 12/22/22 04:05 Hct 30.9 % (37.0-47.0) L 12/22/22 04:05 MCV 88.5 fl (81-99) 12/22/22 04:05 MCH 28.9 pg (28.0-34.0) 12/22/22 04:05 MCHC 32.7 g/dL (30.0-36.0) 12/22/22 04:05 RDW 16.4 % (12.1-15.1) H 12/22/22 04:05 Plt Count 73 10^3/cmm (130-400) L D 12/22/22 04:05 MPV 10.6 fL (7.4-10.4) H 12/22/22 04:05 Neut % (Auto) 87.5 % 12/22/22 04:05 Lymph % (Auto) 9.8 % 12/22/22 04:05 [place] % (Auto) 2.3 % 12/22/22 04:05 Eos % (Auto) 0.0 % 12/22/22 04:05 Baso % (Auto) 0.0 % 12/22/22 04:05 Neut # (Auto) 6.81 10^3/uL (1.8-7.7) 12/22/22 04:05 Lymph # (Auto) 0.8 10^3/uL (0.8-4.8) 12/22/22 04:05 Gooding # (Auto) 0.2 10^3/uL (0.2-0.9) 12/22/22 04:05 Eos # (Auto) 0.0 10^3/uL (0.0-0.8) 12/22/22 04:05 Baso # (Auto) 0.0 10^3/uL (0.0-0.1) 12/22/22 04:05 Nucleated RBC % (auto) 0 % 12/22/22 04:05 Nucleated RBCs # 0.0 /100WBC 12/22/22 04:05 Peripher Smr Path Cons Sent for review 12/19/22 05:17 PT 22.90 SECONDS (12.1-14.9) H 12/18/22 20:30 INR 1.94 (0.8-1.2) H 12/18/22 20:30 APTT 34.8 SECONDS (23.9-36.7) D 12/21/22 15:00 Specimen Type Arterial 12/21/22 05:22 Sample Site Radial, right 12/21/22 05:22 ABG pH 7.44 (7.35-7.45) 12/21/22 05:22 ABG pCO2 29.6 mmHg (35-45) L 12/21/22 05:22 ABG pO2 63.5 mmHg (80.0-100.0) L 12/21/22 05:22 ABG HCO3 19.9 mmol/L (22-26) L 12/21/22 05:22 ABG O2 Saturation 93.8 12/21/22 05:22 ABG Base Excess -3.5 mmol/L (-2.0-2.0) L 12/21/22 05:22 Damian Test Pos 12/21/22 05:22 A-a O2 Gradient 14.6 mmHg (5-10) H 12/21/22 05:22 Hematocrit 33.2 % (37-47) L 12/21/22 05:22 Hgb O2 Saturation 91.6 % (95-100) L 12/21/22 05:22 Carboxyhemoglobin 1.4 %THgb (0.4-20.1) 12/21/22 05:22 Methemoglobin 1.0 % (0.4-1.5) 12/21/22 05:22 Total Hemoglobin 10.8 g/dL (12-16) L 12/21/22 05:22 Sodium 139.0 mmol/L (131-143) 12/21/22 05:22 Potassium 3.8 mmol/L (3.5-5.0) 12/21/22 05:22 Glucose 218.0 mg/dL (70-115) H 12/21/22 05:22 Ionized Calcium 1.2 mmol/L (1.1-1.4) 12/21/22 05:22 O2 Delivery Device Vent 12/21/22 05:22 FiO2 30.0 % 12/21/22 05:22 Tidal Volume 0.40 12/21/22 05:22 PEEP 5.0 cmH20 12/21/22 05:22 Elementary Math Tutor ID Drew 12/21/22 05:22 Sodium 141 mmol/L (136-145) 12/22/22 04:05 Potassium 4.0 mmol/L (3.5-5.1) 12/22/22 04:05 Chloride 112 mmol/L (98-107) H 12/22/22 04:05 Carbon Dioxide 20 mmol/L (22-29) L 12/22/22 04:05 Anion Gap 13.0 (5-19) 12/22/22 04:05 BUN 27 mg/dL (8-23) H 12/22/22 04:05 Creatinine 0.6 mg/dL (0.5-0.9) 12/22/22 04:05 GFR Calculation 99.4 mL/min (90-130) 12/22/22 04:05 Glucose 211 mg/dL (65-115) H 12/22/22 04:05 POC Glucose 181 mg/dL (70-110) H 12/21/22 21:05 Calculated Osmolality 303 mOsm/kg (285-295) H 12/22/22 04:05 Lactic Acid 6.3 mmol/L (0.5-2.2) H* 12/18/22 13:32 Lactic Acid (Sepsis) 5.3 mmol/L (0.5-2.2) H* 12/18/22 15:55 Lactate 1.5 mmol/L (0.5-2.2) 12/20/22 05:23 Calcium 8.4 mg/dL (8.5-10.5) L 12/22/22 04:05 Phosphorus 3.3 mg/dL (2.5-4.5) 12/21/22 03:10 Magnesium 1.9 mg/dL (1.7-2.3) 12/21/22 03:10 Total Bilirubin 0.8 mg/dL (0.15-1.2) 12/22/22 04:05 AST 40 U/L (0-32) H 12/22/22 04:05 ALT 27 U/L (0-33) 12/22/22 04:05 Alkaline Phosphatase 76 U/L (35-105) 12/22/22 04:05 Ammonia 148 umol/L (11-51) H 12/22/22 04:05 Creatine Kinase 193 U/L (26-192) H 12/18/22 13:32 Troponin T Baseline 6 ng/L (0-10) 12/18/22 13:32 Troponin T 120 Minute 81.89 ng/L (0-10) H 12/18/22 15:55 Delta Troponin T 75.89 ABS# (0-10) H* 12/18/22 15:55 Troponin T Hi Sens 6Hr 224.0 ng/L (0-10) H 12/18/22 19:16 Troponin T Hi Sens 6Hr Delta 218.0 ng/L (0-12) H* 12/18/22 19:16 Total Protein 7.1 g/dL (6.6-8.7) 12/22/22 04:05 Albumin 2.6 g/dL (3.5-5.2) L 12/22/22 04:05 Globulin 4.5 g/dL (1.3-4.6) 12/22/22 04:05 Triglycerides 44 mg/dL (0-150) 12/19/22 05:17 Cholesterol 76 mg/dL (0-200) 12/19/22 05:17 LDL Cholesterol, Calc 29 mg/dL (50-129) L 12/19/22 05:17 HDL Cholesterol 38 mg/dL (60-100) L 12/19/22 05:17 LDL/HDL Ratio 0.76 RATIO (0.00-3.22) 12/19/22 05:17 Cholesterol/HDL Ratio 2.00 mg/dL (0.0-4.40) 12/19/22 05:17 Lipase 123 U/L (13-60) H 12/18/22 13:32 TSH 3.87 uIU/mL (0.27-4.20) 12/18/22 19:16 Urine Color Yellow (Yellow) 12/18/22 15:44 Urine Appearance Clear (CLEAR) 12/18/22 15:44 Urine pH 6.5 (5-7) 12/18/22 15:44 Ur Specific [place] 1.015 (1.005-1.030) 12/18/22 15:44 Urine Protein 1+ (Negative) H 12/18/22 15:44 Urine Glucose (UA) Trace (Normal) H 12/18/22 15:44 Urine Ketones Negative (Negative) 12/18/22 15:44 Urine Blood 3+ (Negative) H 12/18/22 15:44 Urine Nitrate Negative (Negative) 12/18/22 15:44 Urine Bilirubin Neg (Negative) 12/18/22 15:44 Urine Urobilinogen 1 mg/dL (Negative) H 12/18/22 15:44 Ur Leukocyte Esterase Not Reportable 12/18/22 15:44 Urine RBC 5-10 /hpf (0-2) H 12/18/22 15:44 Urine WBC 0-4 /hpf (0-5) H 12/18/22 15:44 Ur Squamous Epith Cells 0-4 /hpf (0-5) H 12/18/22 15:44 Amorphous Sediment 1+ /hpf 12/18/22 15:44 Urine Bacteria Not Reportable 12/18/22 15:44 Urine Mucus 1+ /hpf 12/18/22 15:44 Salicylates < 0.3 mg/dL (3-10) L 12/18/22 13:32 Urine Opiates Screen Negative ng/mL (Negative) 12/18/22 15:44 Acetaminophen < 5.0 ug/mL (10-30) L 12/18/22 13:32 Ur Barbiturates Screen Negative ng/mL (Negative) 12/18/22 15:44 Ur Phencyclidine Scrn Negative ng/mL (Negative) 12/18/22 15:44 Ur Amphetamines Screen Negative ng/mL (Negative) 12/18/22 15:44 U Benzodiazepines Scrn Negative ng/mL (Negative) 12/18/22 15:44 Urine Cocaine Screen Negative ng/mL (Negative) 12/18/22 15:44 U Marijuana (THC) Screen Negative ng/mL (Negative) 12/18/22 15:44 Ethyl Alcohol < 10 mg/dL (0-10) 12/18/22 13:32 Serum Ketones Negative (Negative) 12/18/22 13:32 Blood Type A Positive 12/21/22 11:30 Rho(D) Type Positive 12/21/22 11:30 Micro: Microbiology 12/19/22 00:09 Gram Stain - Final Sputum - Endotracheal Tube Aspirate Sputum Culture - Preliminary Coag positive Staphylococcus A&P Assessment and plan (1) Acute non-ST elevation myocardial infarction (NSTEMI): Patient currently has no hemodynamic compromise. No evidence of any other clinical myocardium Natali[place]. (2) Altered mental status: Patient continues to be with altered mental status. Not responding to numerable commands at this time. Had elevated serum ammonia levels. On lactulose. The level seems to be coming down (3) Hyperlipidemia: Qualifiers: Hyperlipidemia type: mixed hyperlipidemia Qualified Code(s): E78.2 - Mixed hyperlipidemia (4) Type 2 diabetes mellitus: Management as per the primary. Qualifiers: Diabetes mellitus complication detail: without coma Diabetes mellitus complication status: with hypoglycemia Diabetes mellitus fci insulin use: with petroleum terminal plant operator use Qualified Code(s): E11.649 - Type 2 diabetes mellitus with hypoglycemia without coma; Z79.4 - group home (current) use of insulin (5) Thrombocytopenia: The heparin was discontinued. The platelet count is around 70,000 at this time. Plan Other problems are Cirrhosis of the liver with elevated serum ammonia. On p.o. lactulose. History of diabetic neuropathy Peripheral neuropathy Multiple electrolyte imbalance including hypokalemia Lactic acidosis Cardiac status seems to be stable. Attestations Medical Necessity Statement*: Deferred to the primary Coding Level of Care Code 71650 Diagnoses Acute non-ST elevation myocardial infarction (NSTEMI) I21.4 Altered mental status R41.82 Hyperlipidemia E78.2 Hyperlipidemia type: mixed hyperlipidemia Type 2 diabetes mellitus E11.649; Z79.4 Diabetes mellitus complication detail: without coma Diabetes mellitus complication status: with hypoglycemia Diabetes mellitus petroleum terminal plant operator insulin use: with petroleum terminal plant operator use Thrombocytopenia D69.6
[2022-12-22] MEDS: nicotine 21 mg Patch 1 PATCH TRANSDERMA (08:07)
[2022-12-22] MEDS: nystatin 100,000 unit/mL UDC 5 mL 500000 UNIT PO ×4 (08:07→20:59)
--- NOTE | 2022-12-22 08:07 | PC.OT ---
OT EVAL HOLD D/T PT STILL INTUBATED; WILL CHECK IN TOMORROW 12/23/22
[2022-12-22] MEDS: clopidogrel 75 mg Tablet PO (08:08)
[2022-12-22] MEDS: fluoxetine 10 mg Capsule PO (08:08)
[2022-12-22] MEDS: OLANZapine 5 mg ODT 2.5 MG PO (08:09)
[2022-12-22] MEDS: insulin lispro 100 unit/1 mL SUBCUT ×4 (08:31→20:59)
[2022-12-22 11:38] LABS: Glucose Point of Care 163 mg/dL (70-110)
[2022-12-22] MEDS: aspirin 81 mg Chew Tablet PEG-TUBE (12:47)
--- NOTE | 2022-12-22 16:41 | P.PN_ITS ---
Subjective Subjective: Ammonia levels increased today to 148. Overnight she received increased doses of lactulose. Rectal tube has been placed. She has had multiple bowel movements. Medications: Reviewed: Yes Medication Review Details: Current Medications Aspirin (Aspirin 300 Mg Supp) 75 mg MA DAILY [facility] Last Admin: 12/21/22 08:33 Dose: 75 mg Atorvastatin Calcium (Atorvastatin 40 Mg Tablet) 80 mg PO BEDTIME [facility] Last Admin: 12/21/22 21:11 Dose: 80 mg Clopidogrel Bisulfate (Clopidogrel 75 Mg Tablet) 75 mg PO DAILY [facility] Last Admin: 12/21/22 08:33 Dose: 75 mg Dexamethasone (Dexamethasone 10 Mg/Ml Inj) 10 mg IVP Q6H [facility] Stop: 12/24/22 13:44 Last Admin: 12/22/22 00:54 Dose: 10 mg Dextrose (Dextrose 50% Syringe 50 Ml) 50 ml IVP PRN PRN; Protocol PRN Reason: hypoglycemia protocol Dextrose (Dextrose 50% Syringe 50 Ml) 25 ml IVP ONCE PRN; Protocol PRN Reason: hypoglycemia protocol Fluoxetine HCl (Fluoxetine 10 Mg Capsule) 10 mg PO DAILY [facility] Glucagon (Glucagon 1 Mg/Ml Inj 1 Ml) 1 mg IM ONCE PRN; Protocol PRN Reason: Adult Acute Hypoglycemia Prot. Propofol (Diprivan) 1,000 mg in 100 mls @ 0 mls/hr IV .Q0M [facility]; Protocol Last Admin: 12/22/22 04:08 Dose: 10 mcg/kg/min, 4.36 mls/hr Fentanyl 2,500 mcg/ Sodium (Chloride) 250 mls @ 0 mls/hr IV .Q0M [facility]; Protocol Last Titration: 12/22/22 04:50 Dose: 50 mcg/hr, 5 mls/hr Norepinephrine Bitartrate 4 mg (/ Dextrose) 254 mls @ 0 mls/hr IV .Q0M [facility]; Protocol Last Titration: 12/21/22 14:53 Dose: Infused Dextrose (D5w) 500 mls @ 100 mls/hr IV ONCE PRN; Protocol PRN Reason: Adult Acute Hypoglycemia Prot Insulin Human Lispro (Insulin Lispro 100 Unit/1 Ml) 0 unit SUBCUT WM&BEDTIME [facility]; Protocol Last Admin: 12/21/22 21:10 Dose: 4 unit Lactulose (Lactulose Oral Liq 20 Gm/30 Ml Udc) 20 gm PO Q1H PRN PRN Reason: to induce Bowel Movement Last Admin: 12/22/22 05:02 Dose: 20 gm Nicotine (Nicotine 21 Mg Patch) 1 patch TRANSDERMA DAILY [facility] Last Admin: 12/21/22 08:33 Dose: 1 patch Nystatin (Nystatin 100,000 Unit/Ml Udc 5 Ml) 500,000 unit PO QID [facility] Last Admin: 12/21/22 21:53 Dose: 500,000 unit Olanzapine (Olanzapine 5 Mg Odt) 2.5 mg PO DAILY [facility] Pantoprazole Sodium (Pantoprazole 40 Mg Sdv) 40 mg IVP Q24H [facility] Last Admin: 12/21/22 21:11 Dose: 40 mg Rifaximin (Rifaximin 550 Mg Tablet) 550 mg NG-TUBE BID [facility]; Protocol Last Admin: 12/21/22 17:14 Dose: 550 mg Trazodone HCl (Trazodone 100 Mg Tablet) 100 mg PO BEDTIME [facility] Last Admin: 12/21/22 21:11 Dose: 100 mg Vitals/I&O/Wt Last Vital Signs Temp 98.6 F 12/22/22 12:30 Pulse 54 L 12/22/22 14:00 Resp 15 12/22/22 15:56 BP 116/70 12/22/22 12:30 Pulse Ox 99 12/22/22 15:56 O2 Del Method Mechanical Ventilation 12/21/22 22:08 O2 Flow Rate 2 12/18/22 13:58 FiO2 30 12/22/22 15:56 12/22/22 12/22/22 12/22/22 06:59 14:59 22:59 Intake Total 279.784 / 1234.051 Output Total 1050 / 1400 Balance -770.216 / -165.949 Weight last 48 hrs Weight 86.455 kg Weight 80.966 kg Physical Exam Narrative: General: intubated, sedated HEENT: PERRLA, pupils bilaterally equal and reactive, pallors not present Chest: Normal vesicular breath sounds, no added sounds, equal good air entry bilaterally CVS: S1-S2 regular, no murmurs, no tachycardia, no gallops, no rubs Abdomen: Soft, nontender, no organomegaly, bowel sounds present Neuro: intubated sedated Urinary Catheter Management: Soriano: Cath Placed During This Visit: no Reason for Continuing Indwelling Catheter: Accurate Measurement of Urinary Output in Critically Ill Patients Data 12/22/22 04:05 12/22/22 04:05 Micro: Microbiology 12/19/22 00:09 Gram Stain - Final Sputum - Endotracheal Tube Aspirate Sputum Culture - Preliminary Methicillin Resis Staph Aureus A&P Assessment and plan (1) Acute non-ST elevation myocardial infarction (NSTEMI): Patient has been having on and off chest pain over the past month and was complaining of chest pain as recently as prior to being found down. Troponin trend 6--> 81--> 224 with a delta of 75 at 2 hours and 200 at 6 hours. Echocardiogram showed a normal LVEF of 59%, mild to moderate concentric LVH without regional wall motion abnormalities Grade 1 diastolic dysfunction and mildly thickened aortic and mitral valves. EF has improved from 40% to 59% currently. Patient has a past medical history of CAD Cardiology consult appreciated Ideally would like patient to proceed to [employer], however her low platelets and unclear mentattion certainly remain a concern. Faled weaning trial on 12/21 due to agitation Also concerning is that patient's mental status is not accurately delineated at this point. She is agitated, not currently following any commands. Continue ASA 75mg MA daily, plavix 75mg daily, atorvastatin 80mg daily (2) Altered mental status: Patient was brought to the emergency room in an altered mental status This may be related to her underlying dementia, and hepatic encephalopathy Her ammonia level is at 82---> 148 lactulose frequency increased, with rectal tube in place , loose BM Continue rifaximin 550mg BID started tube feeds TSH is currently normal at 3.87 CT head with moderate diffuse white matter changes likely reflecting chronic microvascular ischemic changes. Mild diffuse ventricular dilatation similar to prior exams with a chronic communicating hydrocephalus. Resumed her doses of trazodone and fluoxetine, added Zyprexa (3) Thrombocytopenia: Chronic, case discussed with her outpatient tank charger Per Dr. Louis's recommendation, sent peripheral smear to evaluate for giant platelets which would be suggestive of splenic sequestration. No giant platelets were seen on the peripheral smear per pathologist. No signs of splenic sequestration per review of peripheral smear. 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 Patient will need bone marrow biopsy for definitive diagnosis Recommended that for now transfuse patient's to keep a platelet count closer to 70,000 during the acute phase and while undergoing cardiac management. Bone marrow biopsy deferred to outpatient. For possibility of ITP, recommended high-dose steroids dexamethasone 40 mg daily for 96 hours Platelet improved to 70K today after 2 units platelt transfusion on 12/21 Discussed extensively the risk of potential bleeding with heparin drip and antiplatelet agents in the setting of thrombocytopenia with her sister Shreya stephens. Her sister acknowledges understanding of Luh's complicated medical history and currently complicated medical decision making and states that she would like to prioritize the heart understanding all risks of potential bleeding. (4) Acidosis, lactic: Now resolved (5) Hypokalemia: Resolved (6) Hypomagnesemia: (7) Cirrhosis of liver: Secondary to steatohepatitis vs autoimmune hepatitis Recently established with triple drum operator as outpatient Qualifiers: Hepatic cirrhosis type: other cirrhosis Qualified Code(s): K74.69 - Other cirrhosis of liver (8) Nicotine dependence, cigarettes, with unspecified nicotine-induced disorders: start nicotine patch. (9) Persistent cognitive impairment: Likely related to known dementia (10) Cerebellar atrophy: Plan Infectious evaluation: Low probability as primary cause CT chest B/L atelactasis vs infiltrate- would not explain degree of symptoms currently Blood cx negative to date no acute abdominal pathology known liver cirrhosis, enlarged spleen, perihepatic ascites Initially blood cultures were reported as positive for gram-positive bacilli, per confirmation with lab today, this was likely reported on the wrong patient. Patient's blood cultures are currently negative to date s/p cefepime and vancomycin empirically 12/18-12/21 PUD prophylaxis: Protonix 40 mg IV daily DVT prophylaxis: Contraindicated given following platelets Full code All updates in patient's critical illness discussed with her sister Shreya Stephens. Attestations Medical Necessity Statement*: ongoing ICU care Coding Level of Care Code Acute Code for g Fwd Diagnoses Acute non-ST elevation myocardial infarction (NSTEMI) I21.4 Altered mental status R41.82 Thrombocytopenia D69.6 Acidosis, lactic E87.20 Hypokalemia E87.6 Hypomagnesemia E83.42 Cirrhosis of liver K74.69 Hepatic cirrhosis type: other cirrhosis Nicotine dependence, cigarettes, with unspecified nicotine-induced disorders F17.219 Persistent cognitive impairment R41.89 Cerebellar atrophy G31.9
[2022-12-22 17:01] LABS: Glucose Point of Care 191 mg/dL (70-110)
[2022-12-22 20:58] LABS: Glucose Point of Care 252 mg/dL (70-110)
[2022-12-22] MEDS: atorvastatin 40 mg Tablet 80 MG PO (20:58)
[2022-12-22] MEDS: trazodone 100 mg Tablet PO (20:59)
[2022-12-22] MEDS: pantoprazole 40 mg SDV IVP (20:59)
[2022-12-23] VITALS (56 sets, daily range): BP systolic 105–190; BP diastolic 51–113; PULSE 53–127; RESP 8–21; TEMP 36.8–37.2; O2SAT 94–99
[2022-12-23] MEDS: dexamethasone 10 mg/mL INJ IVP ×2 (01:44→07:48)
[2022-12-23] MEDS: propofol 1,000 MG/100 ML INJ 4.36 MG IV (02:43)
[2022-12-23 04:25] LABS: Hematocrit 30.5 % (37.0-47.0); Hemoglobin 9.6 g/dL (11.5-15.3); Lymphocytes # 0.7 10^3/uL (0.8-4.8); Lymphocytes % 10.4 %; Mean Corpuscular HGB Conc 31.5 g/dL (30.0-36.0); Mean Corpuscular Hemoglobin 28.7 pg (28.0-34.0); Mean Platelet Volume 11.1 fL (7.4-10.4); Monocytes # 0.3 10^3/uL (0.2-0.9); Monocytes % 4.2 %; Neutrophils # 5.32 10^3/uL (1.8-7.7); Neutrophils % 84.9 %; Nucleated Red Blood Cells % 0 %; Platelet Count 62 10^3/cmm (130-400); Red Blood Count 3.35 10^6/uL (4.1-5.3); White Blood Count 6.3 10^3/uL (4.0-10.0)
[2022-12-23 04:36] LABS: Ammonia 112 umol/L (11-51)
[2022-12-23 04:41] LABS: Blood Urea Nitrogen 28 mg/dL (8-23); Calcium 8.4 mg/dL (8.5-10.5); Carbon Dioxide 24 mmol/L (22-29); Chloride 113 mmol/L (98-107); Glomerular Filtration Rate 99.4 mL/min (90-130); Glucose 242 mg/dL (65-115); Osmolality Calculated 307 mOsm/kg (285-295); Sodium 142 mmol/L (136-145)
[2022-12-23 07:27] LABS: Glucose Point of Care 287 mg/dL (70-110)
[2022-12-23] MEDS: fluoxetine 10 mg Capsule PO (07:48)
[2022-12-23] MEDS: aspirin 81 mg Chew Tablet PEG-TUBE (07:48)
[2022-12-23] MEDS: clopidogrel 75 mg Tablet PO (07:48)
[2022-12-23] MEDS: insulin lispro 100 unit/1 mL SUBCUT ×4 (07:48→21:18)
[2022-12-23] MEDS: OLANZapine 5 mg ODT 2.5 MG PO (07:48)
--- NOTE | 2022-12-23 09:04 | PC.OT ---
HOLD D/T PT STILL INTUBATED. WILL TRY AGAIN TOMORROW 12/24/22.
--- NOTE | 2022-12-23 09:56 | P.PN_ITS ---
Subjective Subjective: Patient still remains intubated and sedated. Planning to get her extubated today. No fever or chills. Vitals are stable. Medications: Medication Review Details: Current Medications Aspirin (Aspirin 81 Mg Chew Tablet) 81 mg PEG-TUBE DAILY [facility] Last Admin: 12/23/22 07:48 Dose: 81 mg Atorvastatin Calcium (Atorvastatin 40 Mg Tablet) 80 mg PO BEDTIME [facility] Last Admin: 12/22/22 20:58 Dose: 80 mg Clopidogrel Bisulfate (Clopidogrel 75 Mg Tablet) 75 mg PO DAILY [facility] Last Admin: 12/23/22 07:48 Dose: 75 mg Dexamethasone (Dexamethasone 10 Mg/Ml Inj) 10 mg IVP Q6H [facility] Stop: 12/24/22 13:44 Last Admin: 12/23/22 07:48 Dose: 10 mg Dextrose (Dextrose 50% Syringe 50 Ml) 50 ml IVP PRN PRN; Protocol PRN Reason: hypoglycemia protocol Dextrose (Dextrose 50% Syringe 50 Ml) 25 ml IVP ONCE PRN; Protocol PRN Reason: hypoglycemia protocol Fluoxetine HCl (Fluoxetine 10 Mg Capsule) 10 mg PO DAILY [facility] Last Admin: 12/23/22 07:48 Dose: 10 mg Glucagon (Glucagon 1 Mg/Ml Inj 1 Ml) 1 mg IM ONCE PRN; Protocol PRN Reason: Adult Acute Hypoglycemia Prot. Propofol (Diprivan) 1,000 mg in 100 mls @ 0 mls/hr IV .Q0M [facility]; Protocol Last Titration: 12/23/22 08:25 Dose: 0 mcg/kg/min, 0 mls/hr Fentanyl 2,500 mcg/ Sodium (Chloride) 250 mls @ 0 mls/hr IV .Q0M [facility]; Protocol Last Titration: 12/23/22 08:00 Dose: 0 mcg/hr, 0 mls/hr Norepinephrine Bitartrate 4 mg (/ Dextrose) 254 mls @ 0 mls/hr IV .Q0M [facility]; Protocol Last Titration: 12/21/22 14:53 Dose: Infused Dextrose (D5w) 500 mls @ 100 mls/hr IV ONCE PRN; Protocol PRN Reason: Adult Acute Hypoglycemia Prot Insulin Human Lispro (Insulin Lispro 100 Unit/1 Ml) 0 unit SUBCUT WM&BEDTIME [facility]; Protocol Last Admin: 12/23/22 07:48 Dose: 8 unit Lactulose (Lactulose Oral Liq 20 Gm/30 Ml Udc) 20 gm PO Q1H PRN PRN Reason: to induce Bowel Movement Last Admin: 12/22/22 17:02 Dose: 20 gm Nicotine (Nicotine 21 Mg Patch) 1 patch TRANSDERMA DAILY [facility] Last Admin: 12/23/22 07:46 Dose: Not Given Nystatin (Nystatin 100,000 Unit/Ml Udc 5 Ml) 500,000 unit PO QID [facility] Last Admin: 12/22/22 20:59 Dose: 500,000 unit Olanzapine (Olanzapine 5 Mg Odt) 2.5 mg PO DAILY [facility] Last Admin: 12/23/22 07:48 Dose: 2.5 mg Pantoprazole Sodium (Pantoprazole 40 Mg Sdv) 40 mg IVP Q24H [facility] Last Admin: 12/22/22 20:59 Dose: 40 mg Rifaximin (Rifaximin 550 Mg Tablet) 550 mg NG-TUBE BID [facility]; Protocol Last Admin: 12/23/22 07:48 Dose: 550 mg Trazodone HCl (Trazodone 100 Mg Tablet) 100 mg PO BEDTIME [facility] Last Admin: 12/22/22 20:59 Dose: 100 mg Vitals/I&O/Wt Last Vital Signs Temp 98.2 F 12/23/22 08:35 Pulse 79 12/23/22 08:00 Resp 12 12/23/22 08:14 BP 128/79 12/23/22 08:00 Pulse Ox 97 12/23/22 08:14 O2 Del Method Mechanical Ventilation 12/21/22 22:08 O2 Flow Rate 2 12/18/22 13:58 FiO2 30 12/23/22 08:14 12/22/22 12/23/22 12/23/22 22:59 06:59 14:59 Intake Total 98.463 / 98.463 159.852 / 159.852 Output Total 1400 / 1400 525 / 1925 Balance -1400 / -1400 -426.537 / -1826.537 159.852 / 159.852 Weight last 48 hrs Weight 175 lb 2 oz Weight 190 lb 9.6 oz Physical Exam Narrative: GENERAL: The patient is intubated and sedated. Currently she is not responding to any verbal command. Oral cavity: There are no mucous membrane lesions. No ulcerations or bleeding NECK: Trachea appears to be central. No masses noted. No JVD or thyromegaly appreciated. RESPIRATORY: Chest is symmetrical. No intercostals muscle retraction or any accessory muscle activation. Breath sounds are heard bilaterally. No evidence of consolidation BREASTS: Deferred. HEART: The heart sounds are normal. No S3 or S4. No significant murmurs. No pericardial rub ABDOMEN: No vessel pulsations or distention. No tenderness. No organomegaly appreciated. Bowel sounds are normally heard. : Deferred. RECTAL: Deferred. LYMPHATIC: No lymphadenopathy noted in the neck. EXTREMITIES: Spider veins bilaterally around the ankle. The dorsalis pedis and posterior pulses are palpable but weak bilaterally MUSCULOSKELETAL: No acute joint deformities or swelling SKIN: There are no significant rashes or ecchymosis NEUROPSYCHIATRIC: Patient is intubated and sedated. No focal deficits noted. Urinary Catheter Management: Soriano: Cath Placed During This Visit: no Reason for Continuing Indwelling Catheter: Accurate Measurement of Urinary Output in Critically Ill Patients Data 12/23/22 04:00 12/23/22 04:00 Other Labs: Laboratory Last Values WBC 6.3 10^3/uL (4.0-10.0) 12/23/22 04:00 RBC 3.35 10^6/uL (4.1-5.3) L 12/23/22 04:00 Hgb 9.6 g/dL (11.5-15.3) L 12/23/22 04:00 Hct 30.5 % (37.0-47.0) L 12/23/22 04:00 MCV 91.0 fl (81-99) 12/23/22 04:00 MCH 28.7 pg (28.0-34.0) 12/23/22 04:00 MCHC 31.5 g/dL (30.0-36.0) 12/23/22 04:00 RDW 17.0 % (12.1-15.1) H 12/23/22 04:00 Plt Count 62 10^3/cmm (130-400) L 12/23/22 04:00 MPV 11.1 fL (7.4-10.4) H 12/23/22 04:00 Neut % (Auto) 84.9 % 12/23/22 04:00 Lymph % (Auto) 10.4 % 12/23/22 04:00 [place] % (Auto) 4.2 % 12/23/22 04:00 Eos % (Auto) 0.0 % 12/23/22 04:00 Baso % (Auto) 0.0 % 12/23/22 04:00 Neut # (Auto) 5.32 10^3/uL (1.8-7.7) 12/23/22 04:00 Lymph # (Auto) 0.7 10^3/uL (0.8-4.8) L 12/23/22 04:00 [place] # (Auto) 0.3 10^3/uL (0.2-0.9) 12/23/22 04:00 Eos # (Auto) 0.0 10^3/uL (0.0-0.8) 12/23/22 04:00 Baso # (Auto) 0.0 10^3/uL (0.0-0.1) 12/23/22 04:00 Nucleated RBC % (auto) 0 % 12/23/22 04:00 Nucleated RBCs # 0.0 /100WBC 12/23/22 04:00 Peripher Smr Path Cons Sent for review 12/19/22 05:17 PT 22.90 SECONDS (12.1-14.9) H 12/18/22 20:30 INR 1.94 (0.8-1.2) H 12/18/22 20:30 APTT 34.8 SECONDS (23.9-36.7) D 12/21/22 15:00 Specimen Type Arterial 12/21/22 05:22 Sample Site Radial, right 12/21/22 05:22 ABG pH 7.44 (7.35-7.45) 12/21/22 05:22 ABG pCO2 29.6 mmHg (35-45) L 12/21/22 05:22 ABG pO2 63.5 mmHg (80.0-100.0) L 12/21/22 05:22 ABG HCO3 19.9 mmol/L (22-26) L 12/21/22 05:22 ABG O2 Saturation 93.8 12/21/22 05:22 ABG Base Excess -3.5 mmol/L (-2.0-2.0) L 12/21/22 05:22 Damian Test Pos 12/21/22 05:22 A-a O2 Gradient 14.6 mmHg (5-10) H 12/21/22 05:22 Hematocrit 33.2 % (37-47) L 12/21/22 05:22 Hgb O2 Saturation 91.6 % (95-100) L 12/21/22 05:22 Carboxyhemoglobin 1.4 %THgb (0.4-20.1) 12/21/22 05:22 Methemoglobin 1.0 % (0.4-1.5) 12/21/22 05:22 Total Hemoglobin 10.8 g/dL (12-16) L 12/21/22 05:22 Sodium 139.0 mmol/L (131-143) 12/21/22 05:22 Potassium 3.8 mmol/L (3.5-5.0) 12/21/22 05:22 Glucose 218.0 mg/dL (70-115) H 12/21/22 05:22 Ionized Calcium 1.2 mmol/L (1.1-1.4) 12/21/22 05:22 O2 Delivery Device Vent 12/21/22 05:22 FiO2 30.0 % 12/21/22 05:22 Tidal Volume 0.40 12/21/22 05:22 PEEP 5.0 cmH20 12/21/22 05:22 Cryptanalyst ID Drew 12/21/22 05:22 Sodium 142 mmol/L (136-145) 12/23/22 04:00 Potassium 4.0 mmol/L (3.5-5.1) 12/23/22 04:00 Chloride 113 mmol/L (98-107) H 12/23/22 04:00 Carbon Dioxide 24 mmol/L (22-29) 12/23/22 04:00 Anion Gap 9.0 (5-19) 12/23/22 04:00 BUN 28 mg/dL (8-23) H 12/23/22 04:00 Creatinine 0.6 mg/dL (0.5-0.9) 12/23/22 04:00 GFR Calculation 99.4 mL/min (90-130) 12/23/22 04:00 Glucose 242 mg/dL (65-115) H 12/23/22 04:00 POC Glucose 287 mg/dL (70-110) H 12/23/22 07:24 Calculated Osmolality 307 mOsm/kg (285-295) H 12/23/22 04:00 Lactic Acid 6.3 mmol/L (0.5-2.2) H* 12/18/22 13:32 Lactic Acid (Sepsis) 5.3 mmol/L (0.5-2.2) H* 12/18/22 15:55 Lactate 1.5 mmol/L (0.5-2.2) 12/20/22 05:23 Calcium 8.4 mg/dL (8.5-10.5) L 12/23/22 04:00 Phosphorus 3.3 mg/dL (2.5-4.5) 12/21/22 03:10 Magnesium 1.9 mg/dL (1.7-2.3) 12/21/22 03:10 Total Bilirubin 0.8 mg/dL (0.15-1.2) 12/22/22 04:05 AST 40 U/L (0-32) H 12/22/22 04:05 ALT 27 U/L (0-33) 12/22/22 04:05 Alkaline Phosphatase 76 U/L (35-105) 12/22/22 04:05 Ammonia 112 umol/L (11-51) H 12/23/22 04:00 Creatine Kinase 193 U/L (26-192) H 12/18/22 13:32 Troponin T Baseline 6 ng/L (0-10) 12/18/22 13:32 Troponin T 120 Minute 81.89 ng/L (0-10) H 12/18/22 15:55 Delta Troponin T 75.89 ABS# (0-10) H* 12/18/22 15:55 Troponin T Hi Sens 6Hr 224.0 ng/L (0-10) H 12/18/22 19:16 Troponin T Hi Sens 6Hr Delta 218.0 ng/L (0-12) H* 12/18/22 19:16 Total Protein 7.1 g/dL (6.6-8.7) 12/22/22 04:05 Albumin 2.6 g/dL (3.5-5.2) L 12/22/22 04:05 Globulin 4.5 g/dL (1.3-4.6) 12/22/22 04:05 Triglycerides 44 mg/dL (0-150) 12/19/22 05:17 Cholesterol 76 mg/dL (0-200) 12/19/22 05:17 LDL Cholesterol, Calc 29 mg/dL (50-129) L 12/19/22 05:17 HDL Cholesterol 38 mg/dL (60-100) L 12/19/22 05:17 LDL/HDL Ratio 0.76 RATIO (0.00-3.22) 12/19/22 05:17 Cholesterol/HDL Ratio 2.00 mg/dL (0.0-4.40) 12/19/22 05:17 Lipase 123 U/L (13-60) H 12/18/22 13:32 TSH 3.87 uIU/mL (0.27-4.20) 12/18/22 19:16 Urine Color Yellow (Yellow) 12/18/22 15:44 Urine Appearance Clear (CLEAR) 12/18/22 15:44 Urine pH 6.5 (5-7) 12/18/22 15:44 Ur Specific Sherman 1.015 (1.005-1.030) 12/18/22 15:44 Urine Protein 1+ (Negative) H 12/18/22 15:44 Urine Glucose (UA) Trace (Normal) H 12/18/22 15:44 Urine Ketones Negative (Negative) 12/18/22 15:44 Urine Blood 3+ (Negative) H 12/18/22 15:44 Urine Nitrate Negative (Negative) 12/18/22 15:44 Urine Bilirubin Neg (Negative) 12/18/22 15:44 Urine Urobilinogen 1 mg/dL (Negative) H 12/18/22 15:44 Ur Leukocyte Esterase Not Reportable 12/18/22 15:44 Urine RBC 5-10 /hpf (0-2) H 12/18/22 15:44 Urine WBC 0-4 /hpf (0-5) H 12/18/22 15:44 Ur Squamous Epith Cells 0-4 /hpf (0-5) H 12/18/22 15:44 Amorphous Sediment 1+ /hpf 12/18/22 15:44 Urine Bacteria Not Reportable 12/18/22 15:44 Urine Mucus 1+ /hpf 12/18/22 15:44 Salicylates < 0.3 mg/dL (3-10) L 12/18/22 13:32 Urine Opiates Screen Negative ng/mL (Negative) 12/18/22 15:44 Acetaminophen < 5.0 ug/mL (10-30) L 12/18/22 13:32 Ur Barbiturates Screen Negative ng/mL (Negative) 12/18/22 15:44 Ur Phencyclidine Scrn Negative ng/mL (Negative) 12/18/22 15:44 Ur Amphetamines Screen Negative ng/mL (Negative) 12/18/22 15:44 U Benzodiazepines Scrn Negative ng/mL (Negative) 12/18/22 15:44 Urine Cocaine Screen Negative ng/mL (Negative) 12/18/22 15:44 U Marijuana (THC) Screen Negative ng/mL (Negative) 12/18/22 15:44 Ethyl Alcohol < 10 mg/dL (0-10) 12/18/22 13:32 Serum Ketones Negative (Negative) 12/18/22 13:32 Blood Type A Positive 12/21/22 11:30 Rho(D) Type Positive 12/21/22 11:30 Micro: Microbiology 12/19/22 00:09 Gram Stain - Final Sputum - Endotracheal Tube Aspirate Sputum Culture - Final Methicillin Resis Staph Aureus A&P Assessment and plan (1) Acute non-ST elevation myocardial infarction (NSTEMI): Patient currently has no hemodynamic compromise. No evidence of any recurrence of myocardial injury (2) Altered mental status: Patient continues to be with altered mental status. Not responding to any verbal commands Had elevated serum ammonia levels. On lactulose. The level seems to be coming down (3) Hyperlipidemia: Continue on the current medication Qualifiers: Hyperlipidemia type: mixed hyperlipidemia Qualified Code(s): E78.2 - Mixed hyperlipidemia (4) Type 2 diabetes mellitus: Management as per the primary. Qualifiers: Diabetes mellitus complication detail: without coma Diabetes mellitus complication status: with hypoglycemia Diabetes mellitus terminal makeup operator insulin use: with group home use Qualified Code(s): E11.649 - Type 2 diabetes mellitus with hypoglycemia without coma; Z79.4 - retirement (current) use of insulin (5) Thrombocytopenia: The heparin was discontinued. The platelet count is around 70,000 at this time. Plan Other problems are Cirrhosis of the liver with elevated serum ammonia. On p.o. lactulose. History of diabetic neuropathy Peripheral neuropathy Multiple electrolyte imbalance including hypokalemia Lactic acidosis Cardiac status seems to be stable. Patient is in the process of being extubated Attestations Medical Necessity Statement*: Deferred to the primary Coding Level of Care Code 22934 Diagnoses Acute non-ST elevation myocardial infarction (NSTEMI) I21.4 Altered mental status R41.82 Hyperlipidemia E78.2 Hyperlipidemia type: mixed hyperlipidemia Type 2 diabetes mellitus E11.649; Z79.4 Diabetes mellitus complication detail: without coma Diabetes mellitus complication status: with hypoglycemia Diabetes mellitus terminal makeup operator insulin use: with group home use Thrombocytopenia D69.6
--- NOTE | 2022-12-23 10:06 | PC.SOCIAL ---
IMM update IMM not updated as patient is intubated at this time and not expected to dc in the next 24-48 hours.
[2022-12-23 11:17] LABS: Glucose Point of Care 245 mg/dL (70-110)
[2022-12-23] MEDS: nystatin 100,000 unit/mL UDC 5 mL 500000 UNIT PO ×3 (13:07→20:19)
[2022-12-23 13:49] LABS: ABG PCO2 31.7 mmHg (35-45); Alveolar-Arterial Oxygen Gradi 11.6 mmHg (5-10); Arterial Blood Gas Hematocrit 30.4 % (37-47); Base Excess ABG 2.1 mmol/L (-2.0-2.0); Blood Gas Allen Test Pos; Blood Gas Operator Identificat CAK; Blood Gas Sample Site Radial, left; Blood Gas Sample Type Arterial; Carboxyhemoglobin 1.3 %THgb (0.4-20.1); HCO3 ABG 24.9 mmol/L (22-26); HGB O2 Sat 96.1 % (95-100); Ionized Calcium Level - ABG 1.2 mmol/L (1.1-1.4); Methemoglobin 0.7 % (0.4-1.5); Oxygen Device VENT; Oxygen Saturation ABG 98.1; PO2 ABG 82.8 mmHg (80.0-100.0); Potassium Level - ABG 4.7 mmol/L (3.5-5.0); Total Hemoglobin 9.9 g/dL (12-16)
[2022-12-23 15:56] LABS: Glucose Point of Care 263 mg/dL (70-110)
--- NOTE | 2022-12-23 17:13 | P.PN_ITS ---
Subjective Subjective: Seen multiple times during the day. Patient had been off sedation since morning and tolerating a spontaneous breathing trial, although was overall unresponsive. She did not follow any commands or make any purposeful movements. Around 4: 30 pm this evening she started to become increasly agitates . BP 170- 180 sytsolic, tachycardic with HR 100-120, attempting to get out of restraints. She did not follow any directed commands, does not open eyes. ammonia trending down to 112 Medications: Reviewed: Yes Medication Review Details: Current Medications Aspirin (Aspirin 81 Mg Chew Tablet) 81 mg PEG-TUBE DAILY [facility] Last Admin: 12/23/22 07:48 Dose: 81 mg Atorvastatin Calcium (Atorvastatin 40 Mg Tablet) 80 mg PO BEDTIME [facility] Last Admin: 12/22/22 20:58 Dose: 80 mg Clopidogrel Bisulfate (Clopidogrel 75 Mg Tablet) 75 mg PO DAILY [facility] Last Admin: 12/23/22 07:48 Dose: 75 mg Dexamethasone (Dexamethasone 10 Mg/Ml Inj) 10 mg IVP Q6H [facility] Stop: 12/24/22 13:44 Last Admin: 12/23/22 07:48 Dose: 10 mg Dextrose (Dextrose 50% Syringe 50 Ml) 50 ml IVP PRN PRN; Protocol PRN Reason: hypoglycemia protocol Dextrose (Dextrose 50% Syringe 50 Ml) 25 ml IVP ONCE PRN; Protocol PRN Reason: hypoglycemia protocol Fluoxetine HCl (Fluoxetine 10 Mg Capsule) 10 mg PO DAILY [facility] Last Admin: 12/23/22 07:48 Dose: 10 mg Glucagon (Glucagon 1 Mg/Ml Inj 1 Ml) 1 mg IM ONCE PRN; Protocol PRN Reason: Adult Acute Hypoglycemia Prot. Propofol (Diprivan) 1,000 mg in 100 mls @ 0 mls/hr IV .Q0M [facility]; Protocol Last Titration: 12/23/22 08:25 Dose: 0 mcg/kg/min, 0 mls/hr Fentanyl 2,500 mcg/ Sodium (Chloride) 250 mls @ 0 mls/hr IV .Q0M [facility]; Protocol Last Titration: 12/23/22 08:00 Dose: 0 mcg/hr, 0 mls/hr Norepinephrine Bitartrate 4 mg (/ Dextrose) 254 mls @ 0 mls/hr IV .Q0M [facility]; Protocol Last Titration: 12/21/22 14:53 Dose: Infused Dextrose (D5w) 500 mls @ 100 mls/hr IV ONCE PRN; Protocol PRN Reason: Adult Acute Hypoglycemia Prot Insulin Human Lispro (Insulin Lispro 100 Unit/1 Ml) 0 unit SUBCUT WM&BEDTIME [facility]; Protocol Last Admin: 12/23/22 07:48 Dose: 8 unit Lactulose (Lactulose Oral Liq 20 Gm/30 Ml Udc) 20 gm PO Q1H PRN PRN Reason: to induce Bowel Movement Last Admin: 12/22/22 17:02 Dose: 20 gm Nicotine (Nicotine 21 Mg Patch) 1 patch TRANSDERMA DAILY [facility] Last Admin: 12/23/22 07:46 Dose: Not Given Nystatin (Nystatin 100,000 Unit/Ml Udc 5 Ml) 500,000 unit PO QID [facility] Last Admin: 12/22/22 20:59 Dose: 500,000 unit Olanzapine (Olanzapine 5 Mg Odt) 2.5 mg PO DAILY [facility] Last Admin: 12/23/22 07:48 Dose: 2.5 mg Pantoprazole Sodium (Pantoprazole 40 Mg Sdv) 40 mg IVP Q24H [facility] Last Admin: 12/22/22 20:59 Dose: 40 mg Rifaximin (Rifaximin 550 Mg Tablet) 550 mg NG-TUBE BID [facility]; Protocol Last Admin: 12/23/22 07:48 Dose: 550 mg Trazodone HCl (Trazodone 100 Mg Tablet) 100 mg PO BEDTIME [facility] Last Admin: 12/22/22 20:59 Dose: 100 mg Vitals/I&O/Wt Last Vital Signs Temp 98.7 F 12/23/22 12:03 Pulse 127 H 12/23/22 16:30 Resp 21 H 12/23/22 16:17 BP 156/89 12/23/22 16:00 Pulse Ox 96 12/23/22 16:30 O2 Del Method Mechanical Ventilation 12/21/22 22:08 O2 Flow Rate 2 12/18/22 13:58 FiO2 30 12/23/22 16:17 12/23/22 12/23/22 12/23/22 06:59 14:59 22:59 Intake Total 98.463 / 98.463 159.852 / 159.852 Output Total 525 / 1925 Balance -426.537 / -1826.537 159.852 / 159.852 Weight last 48 hrs Weight 79.435 kg Weight 86.455 kg Physical Exam Narrative: General: intubated, sedated HEENT: PERRLA, pupils bilaterally equal and reactive, pallors not present Chest: Normal vesicular breath sounds, no added sounds, equal good air entry bilaterally CVS: S1-S2 regular, no murmurs, no tachycardia, no gallops, no rubs Abdomen: Soft, nontender, no organomegaly, bowel sounds present Neuro: intubated sedated Urinary Catheter Management: Soriano: Cath Placed During This Visit: no Reason for Continuing Indwelling Catheter: Accurate Measurement of Urinary Output in Critically Ill Patients Data 12/23/22 04:00 12/23/22 04:00 Micro: Microbiology 12/19/22 00:09 Gram Stain - Final Sputum - Endotracheal Tube Aspirate Sputum Culture - Final Methicillin Resis Staph Aureus A&P Assessment and plan (1) Altered mental status: Patient was brought to the emergency room in an altered mental status This is likely multifactorial ,with acute delirium from hepatic encephalopathy and underlying dementia Her ammonia level is at 82---> 148--> 112 lactulose frequency increased, with rectal tube in place , loose BM > 1L Continue rifaximin 550mg BID started tube feeds TSH is currently normal at 3.87 CT head with moderate diffuse white matter changes likely reflecting chronic microvascular ischemic changes. Mild diffuse ventricular dilatation similar to prior exams with a chronic communicating hydrocephalus. Resumed her doses of trazodone and fluoxetine, added Zyprexa She does not consume alcohol Patient was intubated on admission due to acute delirium, she has failed weaning trials due to persisting delirium Will additionally evaluate with MRI brain No fever during course of admission (2) Acute non-ST elevation myocardial infarction (NSTEMI): Patient had been having on and off chest pain over the past month and was complaining of chest pain as recently as prior to being found down. Troponin trend 6--> 81--> 224 with a delta of 75 at 2 hours and 200 at 6 hours. Echocardiogram showed a normal LVEF of 59%, mild to moderate concentric LVH without regional wall motion abnormalities Grade 1 diastolic dysfunction and mildly thickened aortic and mitral valves. EF has improved from 40% to 59% currently. Patient has a past medical history of CAD Cardiology consult appreciated Ideally would like patient to proceed to Workforce Planning Analyst, however her low platelets and unclear baseline mentation and persisting delirium certainly remain a concern. Failed weaning trial on 12/21 and again today due to agitation. Continue ASA 75mg WA daily, plavix 75mg daily, atorvastatin 80mg daily s/p heparin infusion for initial 48 hrs. (3) Thrombocytopenia: Chronic, case discussed with her outpatient freelance interpreter/translator Per Dr. Louis's recommendation, sent peripheral smear to evaluate for giant platelets which would be suggestive of splenic sequestration. No giant platelets were seen on the peripheral smear per pathologist. No signs of splenic sequestration per review of peripheral smear. 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 Patient will need bone marrow biopsy for definitive diagnosis Recommended that for now transfuse patient to keep a platelet count closer to 70,000 during the acute phase and while undergoing cardiac management. Bone marrow biopsy deferred to outpatient. For possibility of ITP, recommended high-dose steroids dexamethasone 40 mg daily for 96 hours ---> completed without any significant benefit. Platelet improved to 70K today after 2 units platelt transfusion on 12/21 Discussed extensively the risk of potential bleeding with antiplatelet agents in the setting of thrombocytopenia with her sister Shreya stephens. Her sister acknowledges understanding of Luh's complicated medical history and currently complicated medical decision making and states that she would like to prioritize the heart understanding all risks of potential bleeding. (4) Acidosis, lactic: Now resolved (5) Hypokalemia: Resolved (6) Hypomagnesemia: (7) Cirrhosis of liver: Secondary to steatohepatitis vs autoimmune hepatitis Recently established with shuttle threader as outpatient Qualifiers: Hepatic cirrhosis type: other cirrhosis Qualified Code(s): K74.69 - Other cirrhosis of liver (8) Nicotine dependence, cigarettes, with unspecified nicotine-induced disorders: start nicotine patch. (9) Persistent cognitive impairment: Likely related to known dementia (10) Cerebellar atrophy: Plan Infectious evaluation: Low probability as primary cause CT chest B/L atelactasis vs infiltrate- would not explain degree of symptoms currently Blood cx negative to date no acute abdominal pathology known liver cirrhosis, enlarged spleen, perihepatic ascites Initially blood cultures were reported as positive for gram-positive bacilli, per confirmation with lab today, this was likely reported on the wrong patient. Patient's blood cultures are currently negative to date s/p cefepime and vancomycin empirically 12/18-12/21 PUD prophylaxis: Protonix 40 mg IV daily DVT prophylaxis: Contraindicated given falling platelets Full code All updates in patient's critical illness discussed with her sister Shreya Stephens. Multiple discussions regarding GOC were done with patient's sister Shreya. Initially had discussed high risk extubation today while maintaining Precedex infusion and sister was agreeable for the same. Discussed with her the limitations with using precedex in the setting of bradycardia and the fact that if we are unable to control delirium patient may likely need re intubation. All discussions were being done with sister as her son did not answer his phone and it was reported that patient and her son have not been on good terms and he is not involved in her care though they live together. Today, Ms. Cash updated us that patient has a daughter Nichole Taylor in [place] ([phone]) and another sister Justine who is a nurse ([phone]) who would be involved in her decision making. I spoke with Nichole who was unaware of her mother's other chronic comorbidities, would like some time to establish goals of care and future plan. I reached out to Justine per family's request- got voicemail- left message requesting callback. In the interim, patient currently placed back on Fentanyl and precedex infusion and back on the ventilator for tonight due to increased agitation. Attestations Medical Necessity Statement*: persisting delirium, failed trials of extubation, continued ICU monitoring Coding Level of Care Code Acute Code for [facility] Fwd Diagnoses Altered mental status R41.82 Acute non-ST elevation myocardial infarction (NSTEMI) I21.4 Thrombocytopenia D69.6 Acidosis, lactic E87.20 Hypokalemia E87.6 Hypomagnesemia E83.42 Cirrhosis of liver K74.69 Hepatic cirrhosis type: other cirrhosis Nicotine dependence, cigarettes, with unspecified nicotine-induced disorders F17.219 Persistent cognitive impairment R41.89 Cerebellar atrophy G31.9
[2022-12-23] MEDS: sodium chloride 0.9% 1,000 ML 75 ML IV (18:24)
[2022-12-23] MEDS: dexmedetomidine 400 MCG in sodium chloride 0.9% (100 ml) 100 ML IV (18:34)
[2022-12-23 20:17] LABS: Glucose Point of Care 187 mg/dL (70-110)
[2022-12-23] MEDS: trazodone 100 mg Tablet PO (20:19)
[2022-12-23] MEDS: atorvastatin 40 mg Tablet 80 MG PO (20:19)
[2022-12-23] MEDS: pantoprazole 40 mg SDV IVP (21:38)
[2022-12-24] VITALS (55 sets, daily range): BP systolic 81–188; BP diastolic 47–126; PULSE 43–98; RESP 8–30; O2SAT 92–100
--- NOTE | 2022-12-24 00:41 | PC.PHAR ---
Pharmacokinetic dosing service Date: 12/24/22 Time: 124 Objective: Patient: Luh Ray Floor: ICU-11 Age: 67 yo Serum creatinine: 0.6 mg/dL Height: 63.0 Inches Weight (kg): 79.435 Diagnosis: Relevant medical/social history: Cultures and sensitivities: Other labs: Assessment: IBW (kg): 52.40 Dosing wt(kg): 79.435 Estimated Creatinine clearance (ml/min): 74.2 CRCL method: Cockcroft and Gault using ibw(default). Drug selected: Vancomycin Loading dose (mg): 0 Vd (liters): 71.5 (factor used: 0.9 L/kg) Gilberto (hr-1): 0.066 Half life (hrs): 10.50 Recommended dose: 1250 mg Interval: 12 hrs Infusion time (hrs): 1.5 Predicted peak (mcg/mL): 30.4 Predicted trough (mcg/mL): 15.20 Total body weight is being used for vancomycin dosing. Renal function is stable [ ] /unstable [ ] Recommendations: Give Vancomycin 1250 mg q 12 hrs with an expected Cpeak of 30.4 mcg/ml and an expected Ctrough of 15.20 mcg/ml Renal dosing of other antibiotics (review renal dosing of other medications and list guidelines here): Thank you for the consult, will continue to follow. Signature: Becky [facility]
[2022-12-24] MEDS: vancomycin 1,250 MG/250 ML PIGGYBACK 250 MG IV ×2 (01:22→12:38)
--- NOTE | 2022-12-24 03:23 | PM.PN ---
Subjective Subjective: Patient was seen on 12/21/22 and note is for 12/21/22 remains intubated; now off levophed and precedex. Platelets have dropped down to ~30k Medications: Reviewed: Yes Vitals/I&O/Wt Last Vital Signs Temp 98.7 F 12/23/22 12:03 Pulse 54 L 12/24/22 00:00 Resp 8 L 12/24/22 02:48 BP 114/68 12/24/22 00:00 Pulse Ox 95 12/24/22 00:00 O2 Del Method Mechanical Ventilation 12/21/22 22:08 O2 Flow Rate 2 12/18/22 13:58 FiO2 30 12/24/22 02:48 12/23/22 12/23/22 12/24/22 14:59 22:59 06:59 Intake Total 159.852 / 159.852 12.115 / 171.967 250 / 421.967 Output Total 800 / 800 Balance 159.852 / 159.852 -787.885 / -628.033 250 / -378.033 Weight last 48 hrs Weight 175 lb 2 oz Physical Exam Narrative: Gen: intubated and sedated Neck: No JVD, no pallor or icterus RS: CTAB/L CVS: S1, S2+; No murmur, rub or gallop Ext: No edema, cyanosis CLASSIFIER OPERATOR: sedated Urinary Catheter Management: Soriano: Cath Placed During This Visit: no Reason for Continuing Indwelling Catheter: Accurate Measurement of Urinary Output in Critically Ill Patients Data 12/23/22 04:00 12/23/22 04:00 Micro: Microbiology 12/19/22 00:48 Blood Culture - Final Blood NO GROWTH AFTER 5 DAYS 12/19/22 00:45 Blood Culture - Final Blood NO GROWTH AFTER 5 DAYS 12/18/22 19:30 Blood Culture - Final Blood NO GROWTH AFTER 5 DAYS 12/18/22 19:16 Blood Culture - Final Blood NO GROWTH AFTER 5 DAYS A&P Assessment and plan (1) Acute non-ST elevation myocardial infarction (NSTEMI): Medical management for now' -decision for cath based on patient's mentation -ok to d/c heparin; echo with improved LV function and no RWMA -will monitor platelets and may have to stop DAPT based on that. (2) Altered mental status: (3) Cirrhosis of liver: Qualifiers: Hepatic cirrhosis type: other cirrhosis Qualified Code(s): K74.69 - Other cirrhosis of liver (4) Hypertension: (5) GERD (gastroesophageal reflux disease): Qualifiers: Esophagitis presence: without esophagitis Qualified Code(s): K21.9 - Gastro-esophageal reflux disease without esophagitis Plan Thrombocytopenia Bradycardia Attestations Medical Necessity Statement*: remains critically ill Coding Level of Care Code 65749 Diagnoses Acute non-ST elevation myocardial infarction (NSTEMI) I21.4 Altered mental status R41.82 Cirrhosis of liver K74.69 Hepatic cirrhosis type: other cirrhosis Hypertension I10 GERD (gastroesophageal reflux disease) K21.9 Esophagitis presence: without esophagitis
[2022-12-24 03:50] LABS: ABG PCO2 33.4 mmHg (35-45); ABG PH Result 7.49 (7.35-7.45); Arterial Blood Gas Hematocrit 35.3 % (37-47); Base Excess ABG 2.4 mmol/L (-2.0-2.0); Blood Gas Allen Test Pos; Blood Gas Sample Site Radial, right; Blood Gas Sample Type Arterial; HCO3 ABG 25.5 mmol/L (22-26); Oxygen Device VENT; PO2 ABG 68.8 mmHg (80.0-100.0)
--- NOTE | 2022-12-24 04:00 | XRR_ITS ---
PROCEDURE INFORMATION: Exam: XR Chest Exam date and time: 12/24/2022 4:29 AM Age: 67 years old Clinical indication: Condition or disease; Lung condition and disease; Respiratory failure; Status not specified; Patient HX: Intubated; Additional info: Evalute for pneumonia TECHNIQUE: Imaging protocol: Radiologic exam of the chest. Views: 1 view. Total images: 962 COMPARISON: CR (CHEST, ) 12/18/2022 8:42 PM FINDINGS: Tubes, catheters and devices: Tubes and catheters are unchanged from the prior exam. Lungs: Pulmonary vascular congestion. Pleural spaces: Unremarkable. No pleural effusion. No pneumothorax. Heart/Mediastinum: Cardiomegaly. Low lung volumes are present, accentuating cardiac size and pulmonary markings. Bones/joints: Osseous structures are unchanged from the prior exam. XR/XR chest 1V portable [id number] IMPRESSION: 1. Tubes and catheters are unchanged from the prior exam. 2. Cardiomegaly with pulmonary vascular congestion. 3. Low lung volumes are present, accentuating cardiac size and pulmonary markings.
[2022-12-24 04:08] LABS: Hematocrit 29.6 % (37.0-47.0); Hemoglobin 9.4 g/dL (11.5-15.3); Lymphocytes # 1.1 10^3/uL (0.8-4.8); Mean Corpuscular HGB Conc 31.8 g/dL (30.0-36.0); Mean Corpuscular Hemoglobin 28.5 pg (28.0-34.0); Mean Corpuscular Volume 89.7 fl (81-99); Mean Platelet Volume 10.5 fL (7.4-10.4); Monocytes # 0.5 10^3/uL (0.2-0.9); Monocytes % 8.1 %; Neutrophils # 4.67 10^3/uL (1.8-7.7); Neutrophils % 74.3 %; Nucleated Red Blood Cells % 0 %; Platelet Count 55 10^3/cmm (130-400); Red Cell Distribution Width 16.6 % (12.1-15.1); White Blood Count 6.3 10^3/uL (4.0-10.0)
[2022-12-24 04:19] LABS: Ammonia 78 umol/L (11-51)
[2022-12-24 04:31] LABS: Alanine Aminotransferase 27 U/L (0-33); Albumin Level 2.2 g/dL (3.5-5.2); Alkaline Phosphatase 63 U/L (35-105); Anion Gap 10.8 (5-19); Aspartate Amino Transferase 33 U/L (0-32); Blood Urea Nitrogen 28 mg/dL (8-23); Calcium 7.5 mg/dL (8.5-10.5); Carbon Dioxide 24 mmol/L (22-29); Chloride 110 mmol/L (98-107); Globulin 3.8 g/dL (1.3-4.6); Glomerular Filtration Rate 99.4 mL/min (90-130); Glucose 201 mg/dL (65-115); NT Pro B Type Natriuretic Pept 669 pg/mL (0-125); Osmolality Calculated 303 mOsm/kg (285-295); Potassium 3.8 mmol/L (3.5-5.1); Sodium 141 mmol/L (136-145); Total Bilirubin 0.8 mg/dL (0.15-1.2)
[2022-12-24 07:13] LABS: Glucose Point of Care 233 mg/dL (70-110)
--- NOTE | 2022-12-24 07:43 | XRR_ITS ---
PROCEDURE INFORMATION: Exam: XR Chest Exam date and time: 12/24/2022 6:51 AM Age: 67 years old Clinical indication: Device placement; Ett placement (vent status); Additional info: Et placement TECHNIQUE: Imaging protocol: Radiologic exam of the chest. Views: 1 view. COMPARISON: CR (CHEST, ) 12/24/2022 4:29 AM FINDINGS: Tubes, catheters and devices: Endotracheal tube is in satisfactory position. Feeding tube is in satisfactory position. Right IJ central line in satisfactory position with distal tip at the level of the SVC/RA junction. Lungs: Low lung volumes. There is increased interstitial markings and haziness of the lungs, which in the setting of cardiomegaly is suggestive of pulmonary congestion. Pneumonia should be excluded clinically. Pleural spaces: Unremarkable. No pleural effusion. No pneumothorax. Heart/Mediastinum: Stable cardiomediastinal silhouette. Bones/joints: Unremarkable. XR/XR chest 1V portable [id number] IMPRESSION: Imaging findings suggestive of pulmonary congestion. Pneumonia should be excluded clinically.
[2022-12-24] MEDS: OLANZapine 5 mg ODT 2.5 MG PO ×2 (08:00→17:54)
[2022-12-24] MEDS: insulin lispro 100 unit/1 mL SUBCUT ×4 (08:11→21:32)
[2022-12-24] MEDS: clopidogrel 75 mg Tablet PO (08:11)
[2022-12-24] MEDS: aspirin 81 mg Chew Tablet PEG-TUBE (08:11)
[2022-12-24] MEDS: sodium chloride 0.9% 1,000 ML 75 ML IV (08:11)
[2022-12-24] MEDS: fluoxetine 10 mg Capsule PO (08:11)
[2022-12-24] MEDS: nicotine 21 mg Patch 1 PATCH TRANSDERMA (08:11)
[2022-12-24] MEDS: dexmedetomidine 400 MCG in sodium chloride 0.9% (100 ml) 100 ML 14.46 MCG IV (08:40)
--- NOTE | 2022-12-24 08:58 | PC.OT ---
HOLD EVALUATION THIS MORNING DUE TO POSSIBLE EXTUBATION TODAY.
[2022-12-24] MEDS: nystatin 100,000 unit/mL UDC 5 mL 500000 UNIT PO ×4 (09:57→21:33)
[2022-12-24 11:52] LABS: Glucose Point of Care 208 mg/dL (70-110)
--- NOTE | 2022-12-24 12:19 | PC.OT ---
OT EVALATION ATTEMPTED TWICE TODAY; PATIENT CONTINUES TO BE INTUBATED AND NOT ALERT.
[2022-12-24] MEDS: propofol 1,000 MG/100 ML INJ 8.71 MG IV ×2 (12:59→22:03)
--- NOTE | 2022-12-24 16:18 | PC.NURSE ---
CVL: Dressing changed. Sorba view contour shield dressing applied.
--- NOTE | 2022-12-24 16:38 | P.PN_ITS ---
Subjective Subjective: remains intubated; now back on levophed and propofol. Platelets up to ~55k Medications: Reviewed: Yes Medication Review Details: Current Medications Aspirin (Aspirin 81 Mg Chew Tablet) 81 mg PEG-TUBE DAILY [facility] Last Admin: 12/23/22 07:48 Dose: 81 mg Atorvastatin Calcium (Atorvastatin 40 Mg Tablet) 80 mg PO BEDTIME EDENILSON Last Admin: 12/22/22 20:58 Dose: 80 mg Clopidogrel Bisulfate (Clopidogrel 75 Mg Tablet) 75 mg PO DAILY [facility] Last Admin: 12/23/22 07:48 Dose: 75 mg Dexamethasone (Dexamethasone 10 Mg/Ml Inj) 10 mg IVP Q6H EDENILSON Stop: 12/24/22 13:44 Last Admin: 12/23/22 07:48 Dose: 10 mg Dextrose (Dextrose 50% Syringe 50 Ml) 50 ml IVP PRN PRN; Protocol PRN Reason: hypoglycemia protocol Dextrose (Dextrose 50% Syringe 50 Ml) 25 ml IVP ONCE PRN; Protocol PRN Reason: hypoglycemia protocol Fluoxetine HCl (Fluoxetine 10 Mg Capsule) 10 mg PO DAILY [facility] Last Admin: 12/23/22 07:48 Dose: 10 mg Glucagon (Glucagon 1 Mg/Ml Inj 1 Ml) 1 mg IM ONCE PRN; Protocol PRN Reason: Adult Acute Hypoglycemia Prot. Propofol (Diprivan) 1,000 mg in 100 mls @ 0 mls/hr IV .Q0M EDENILSON; Protocol Last Titration: 12/23/22 08:25 Dose: 0 mcg/kg/min, 0 mls/hr Fentanyl 2,500 mcg/ Sodium (Chloride) 250 mls @ 0 mls/hr IV .Q0M EDENILSON; Protocol Last Titration: 12/23/22 08:00 Dose: 0 mcg/hr, 0 mls/hr Norepinephrine Bitartrate 4 mg (/ Dextrose) 254 mls @ 0 mls/hr IV .Q0M EDENILSON; Protocol Last Titration: 12/21/22 14:53 Dose: Infused Dextrose (D5w) 500 mls @ 100 mls/hr IV ONCE PRN; Protocol PRN Reason: Adult Acute Hypoglycemia Prot Insulin Human Lispro (Insulin Lispro 100 Unit/1 Ml) 0 unit SUBCUT WM&BEDTIME EDENILSON; Protocol Last Admin: 12/23/22 07:48 Dose: 8 unit Lactulose (Lactulose Oral Liq 20 Gm/30 Ml Udc) 20 gm PO Q1H PRN PRN Reason: to induce Bowel Movement Last Admin: 12/22/22 17:02 Dose: 20 gm Nicotine (Nicotine 21 Mg Patch) 1 patch TRANSDERMA DAILY [facility] Last Admin: 12/23/22 07:46 Dose: Not Given Nystatin (Nystatin 100,000 Unit/Ml Udc 5 Ml) 500,000 unit PO QID [facility] Last Admin: 12/22/22 20:59 Dose: 500,000 unit Olanzapine (Olanzapine 5 Mg Odt) 2.5 mg PO DAILY [facility] Last Admin: 12/23/22 07:48 Dose: 2.5 mg Pantoprazole Sodium (Pantoprazole 40 Mg Sdv) 40 mg IVP Q24H [facility] Last Admin: 12/22/22 20:59 Dose: 40 mg Rifaximin (Rifaximin 550 Mg Tablet) 550 mg NG-TUBE BID [facility]; Protocol Last Admin: 12/23/22 07:48 Dose: 550 mg Trazodone HCl (Trazodone 100 Mg Tablet) 100 mg PO BEDTIME [facility] Last Admin: 12/22/22 20:59 Dose: 100 mg Vitals/I&O/Wt Last Vital Signs Temp 98.7 F 12/23/22 12:03 Pulse 47 L 12/24/22 14:55 Resp 15 12/24/22 16:00 BP 98/61 12/24/22 11:00 Pulse Ox 95 12/24/22 13:30 O2 Del Method Mechanical Ventilation 12/24/22 10:30 O2 Flow Rate 2 12/18/22 13:58 FiO2 30 12/24/22 13:30 12/24/22 12/24/22 12/24/22 06:59 14:59 22:59 Intake Total 344.484 / 884.652 5879.984 / 1380.984 Output Total 625 / 1425 Balance -280.516 / -482.038 8032.984 / 1380.984 Weight last 48 hrs Weight 194 lb Weight 175 lb 2 oz Physical Exam Narrative: Gen: intubated and sedated Neck: No JVD, no pallor or icterus RS: CTAB/L CVS: S1, S2+; bradycardia+; No murmur, rub or gallop Ext: No edema, cyanosis LPN CARE MANAGER: sedated Urinary Catheter Management: Soriano: Cath Placed During This Visit: no Reason for Continuing Indwelling Catheter: Accurate Measurement of Urinary Output in Critically Ill Patients Data 12/24/22 03:31 12/24/22 03:31 Micro: Microbiology 12/19/22 00:48 Blood Culture - Final Blood NO GROWTH AFTER 5 DAYS 12/19/22 00:45 Blood Culture - Final Blood NO GROWTH AFTER 5 DAYS 12/18/22 19:30 Blood Culture - Final Blood NO GROWTH AFTER 5 DAYS 12/18/22 19:16 Blood Culture - Final Blood NO GROWTH AFTER 5 DAYS A&P Assessment and plan (1) Altered mental status: ammonia level decreased (2) Acute non-ST elevation myocardial infarction (NSTEMI): Medical management -decision for cath based on patient's mentation -ok to d/c heparin; echo with improved LV function and no RWMA -will monitor platelets and may have to stop DAPT based on that. (3) Cirrhosis of liver: Qualifiers: Hepatic cirrhosis type: other cirrhosis Qualified Code(s): K74.69 - Other cirrhosis of liver (4) Hypertension: Hypotensive lately (5) GERD (gastroesophageal reflux disease): Qualifiers: Esophagitis presence: without esophagitis Qualified Code(s): K21.9 - Gastro-esophageal reflux disease without esophagitis Plan Thrombocytopenia : s/p 2 units of platelets Junctional Bradycardia with HR 40-50's Anemia CAD IDDM GERD Hypothyroidism Attestations Medical Necessity Statement*: As per primary team Coding Level of Care Code Acute Code for [facility] Fwd Diagnoses Altered mental status R41.82 Acute non-ST elevation myocardial infarction (NSTEMI) I21.4 Cirrhosis of liver K74.69 Hepatic cirrhosis type: other cirrhosis Hypertension I10 GERD (gastroesophageal reflux disease) K21.9 Esophagitis presence: without esophagitis
[2022-12-24 17:20] LABS: Glucose Point of Care 177 mg/dL (70-110)
--- NOTE | 2022-12-24 17:59 | P.PN_ITS ---
Subjective Subjective: Patient was seen and examined this morning, she was on minimal dose of fentanyl this morning, extremely agitated, currently patient is not responding to any verbal command, withdraws to pain, Precedex drip had to be stopped, as she was getting bradycardic, as well as hypotensive, has been afebrile, ammonia has steadily trended down though still high at 78, platelet count today has down trended to 55,000 as compared to 62,000 yesterday, patient was restarted back on propofol, fentanyl has been kept on hold in view of significant bradycardia, she is also requiring minimal off Levophed. Sputum culture is growing MRSA: Currently she is on IV vancomycin. X-ray chest x-ray chest is suggestive of: Pulmonary vascular congestion, versus possible pneumonia. Repeat CT head without contrast has been ordered, as currently MRI brain is not feasible. For now we will continue patient on mechanical ventilation, will attempt spontaneous breathing trial in the a.m. Medications: Reviewed: Yes Medication Review Details: Generic Name Dose Route Start Last Admin Trade Name Sergioq PRN Reason Stop Dose Admin Aspirin 81 mg 12/22/22 11:15 12/24/22 08:11 Aspirin 81 Mg Ch ew Tablet PEG-TUBE 81 mg DAILY EDENILSON Administration Atorvastatin Calci um 80 mg 12/19/22 21:00 12/23/22 20:19 Atorvastatin 40 Mg Tablet PO 80 mg BEDTIME EDENILSON Administration Clopidogrel Bisulf ate 75 mg 12/20/22 09:00 12/24/22 08:11 Clopidogrel 75 M g Tablet PO 75 mg DAILY [facility] Administration Fluoxetine HCl 10 mg 12/22/22 09:00 12/24/22 08:11 Fluoxetine 10 Mg Capsule PO 10 mg DAILY EDENILSON Administration Propofol 1,000 mg in 100 m ls @ 0 mls/hr 12/18/22 14:45 12/24/22 12:59 Diprivan IV 20 mcg/kg/min .Q0M EDENILSON 8.71 mls/hr Administration Protocol Per Protocol Fentanyl 2,500 mcg / Sodium 250 mls @ 0 mls/h r 12/18/22 19:30 12/24/22 17:25 Chloride IV 0 mcg/hr .Q0M EDENILSON 0 mls/hr Titration Protocol Per Protocol Norepinephrine Bit artrate 4 mg 254 mls @ 0 mls/h r 12/19/22 02:00 12/24/22 17:25 / Dextrose IV 3 mcg/min .Q0M EDENILSON 11.43 mls/hr Titration Protocol Per Protocol Sodium Chloride 1,000 mls @ 75 ml s/hr 12/23/22 17:30 12/24/22 08:11 Sodium Chloride 0.9% IV 75 mls/hr .[id number] EDENILSON Administration Dexmedetomidine HC l 400 mcg/ 104 mls @ 0 mls/h r 12/23/22 17:45 12/24/22 11:35 Sodium Chloride IV 0 mcg/kg/hr .Q0M EDENILSON 0 mls/hr Titration Protocol Per Protocol Vancomycin/PEG/NAD A/Lysine/Water 1,250 mg in 250 m ls @ 250 mls/hr 12/24/22 01:00 12/24/22 13:50 Vancocin IV Infused Q12H EDENILSON Infusion Insulin Human Lisp ro 0 unit 12/19/22 18:00 12/24/22 17:55 Insulin Lispro 1 00 Unit/1 Ml SUBCUT 2 unit WM&BEDTIME EDENILSON Administration Protocol Lactulose 20 gm 12/21/22 22:29 12/22/22 17:02 Lactulose Oral L iq 20 Gm/30 Ml Udc PO 20 gm Q1H PRN Administration to induce Bowel M ovement Nicotine 1 patch 12/20/22 09:00 12/24/22 08:11 Nicotine 21 Mg P atch TRANSDERMA 1 patch DAILY [facility] Administration Nystatin 500,000 unit 12/21/22 17:00 12/24/22 17:54 Nystatin 100,000 Unit/Ml Udc 5 Ml PO 500,000 unit QID EDENILSON Administration Olanzapine 2.5 mg 12/24/22 09:00 12/24/22 17:54 Olanzapine 5 Mg Odt PO 2.5 mg BID DEENILSON Administration Pantoprazole Sodiu m 40 mg 12/18/22 21:22 12/23/22 21:38 Pantoprazole 40 Mg Sdv IVP 40 mg Q24H ED[facility]IL[facility] Administration Rifaximin 550 mg 12/19/22 18:00 12/24/22 17:54 Rifaximin 550 Mg Tablet NG-TUBE 550 mg BID EDENILSON Administration Protocol Trazodone HCl 100 mg 12/21/22 21:00 12/23/22 20:19 Trazodone 100 Mg Tablet PO 100 mg BEDTIME EDENILSON Administration Vitals/I&O/Wt Last Vital Signs Temp 98.7 F 12/23/22 12:03 Pulse 43 L 12/24/22 17:30 Resp 15 12/24/22 16:42 BP 81/47 12/24/22 17:30 Pulse Ox 98 12/24/22 17:30 O2 Del Method Mechanical Ventilation 12/24/22 17:30 O2 Flow Rate 2 12/18/22 13:58 FiO2 30 12/24/22 17:30 12/24/22 12/24/22 12/24/22 06:59 14:59 22:59 Intake Total 344.484 / 788.732 2864.984 / 1380.984 16.363 / 1397.347 Output Total 625 / 1425 Balance -280.516 / -401.060 5661.984 / 1380.984 16.363 / 1397.347 Weight last 48 hrs Weight 87.997 kg Weight 79.435 kg Physical Exam Narrative: Intubated sedated on mechanical ventilation HENMT: COMMON NORMALS: normocephalic and atraumatic HEAD & SCALP: normocephalic and atraumatic Resp: EFFORT & INSPECTION: Yes symmetric chest movement OTHER: Diminished air entry bilaterally. Cardio: COMMON NORMALS: regular rate, regular rhythm, S1 normal heart sound present, S2 normal heart sound present, No gallops present (Cardio), No murmurs present (Cardio), No rub (Cardio) and Peripheral pulses 2+ throughout RATE: regular rate RHYTHM: regular rhythm HEART SOUNDS: S1 normal heart sound present and S2 normal heart sound present PERIPHERAL PULSES: Peripheral pulses 2+ throughout GI: COMMON NORMALS: Normal to inspection, nondistended, normoactive bowel sounds present, Soft to palpation, non-tender, No hepatosplenomegaly present and no masses AUSCULTATION: Yes normoactive bowel sounds PALPATION: Yes Soft to palpation and Yes No hepatosplenomegaly present RECTAL EXAM: deferred Extremity: COMMON NORMALS: no clubbing, cyanosis or edema and no pedal edema Urinary Catheter Management: Soriano: Cath Placed During This Visit: no Reason for Continuing Indwelling Catheter: Accurate Measurement of Urinary Output in Critically Ill Patients Data 12/24/22 03:31 12/24/22 03:31 Micro: Microbiology 12/19/22 00:48 Blood Culture - Final Blood NO GROWTH AFTER 5 DAYS 12/19/22 00:45 Blood Culture - Final Blood NO GROWTH AFTER 5 DAYS 12/18/22 19:30 Blood Culture - Final Blood NO GROWTH AFTER 5 DAYS 12/18/22 19:16 Blood Culture - Final Blood NO GROWTH AFTER 5 DAYS A&P Assessment and plan (1) Altered mental status: Patient was brought to the emergency room in an altered mental status This is likely multifactorial ,with acute delirium from hepatic encephalopathy and underlying dementia Her ammonia level is at 82---> 148--> 112 lactulose frequency increased, with rectal tube in place , loose BM > 1L Continue rifaximin 550mg BID started tube feeds TSH is currently normal at 3.87 CT head with moderate diffuse white matter changes likely reflecting chronic microvascular ischemic changes. Mild diffuse ventricular dilatation similar to prior exams with a chronic communicating hydrocephalus. Resumed her doses of trazodone and fluoxetine, added Zyprexa She does not consume alcohol Patient was intubated on admission due to acute delirium, she has failed weaning trials due to persisting delirium Will additionally evaluate with MRI brain No fever during course of admission (2) Acute non-ST elevation myocardial infarction (NSTEMI): Patient had been having on and off chest pain over the past month and was complaining of chest pain as recently as prior to being found down. Troponin trend 6--> 81--> 224 with a delta of 75 at 2 hours and 200 at 6 hours. Echocardiogram showed a normal LVEF of 59%, mild to moderate concentric LVH without regional wall motion abnormalities Grade 1 diastolic dysfunction and mildly thickened aortic and mitral valves. EF has improved from 40% to 59% currently. Patient has a past medical history of CAD Cardiology consult appreciated Ideally would like patient to proceed to [facility], however her low platelets and unclear baseline mentation and persisting delirium certainly remain a concern. Failed weaning trial on 12/21 and again today due to agitation. Continue ASA 75mg ND daily, plavix 75mg daily, atorvastatin 80mg daily s/p heparin infusion for initial 48 hrs. (3) Thrombocytopenia: Chronic, case discussed with her outpatient head men's golf coach Per Dr. Louis's recommendation, sent peripheral smear to evaluate for giant cinda telets which would be suggestive of splenic sequestration. No giant platelets were seen on the peripheral smear per pathologist. No signs of splenic sequestration per review of peripheral smear. 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 Patient will need bone marrow biopsy for definitive diagnosis Recommended that for now transfuse patient to keep a platelet count closer to 70,000 during the acute phase and while undergoing cardiac management. Bone marrow biopsy deferred to outpatient. For possibility of ITP, recommended high-dose steroids dexamethasone 40 mg daily for 96 hours ---> completed without any significant benefit. Platelet improved to 70K today after 2 units platelt transfusion on 12/21 Discussed extensively the risk of potential bleeding with antiplatelet agents in the setting of thrombocytopenia with her sister Shreya stephens. Her sister acknowledges understanding of Luh's complicated medical history and currently complicated medical decision making and states that she would like to prioritize the heart understanding all risks of potential bleeding. (4) Acidosis, lactic: Now resolved (5) Hypokalemia: Resolved (6) Hypomagnesemia: (7) Cirrhosis of liver: Secondary to steatohepatitis vs autoimmune hepatitis Recently established with aircraft engine technician as outpatient Qualifiers: Hepatic cirrhosis type: other cirrhosis Qualified Code(s): K74.69 - Other cirrhosis of liver (8) Nicotine dependence, cigarettes, with unspecified nicotine-induced disorders: start nicotine patch. (9) Persistent cognitive impairment: Likely related to known dementia (10) Cerebellar atrophy: Plan Infectious evaluation: Low probability as primary cause CT chest B/L atelactasis vs infiltrate- would not explain degree of symptoms currently Blood cx negative to date no acute abdominal pathology known liver cirrhosis, enlarged spleen, perihepatic ascites Initially blood cultures were reported as positive for gram-positive bacilli, per confirmation with lab today, this was likely reported on the wrong patient. Patient's blood cultures are currently negative to date s/p cefepime and vancomycin empirically 12/18-12/21 PUD prophylaxis: Protonix 40 mg IV daily DVT prophylaxis: Contraindicated given falling platelets Full code All updates in patient's critical illness discussed with her sister Shreya Stephens. Multiple discussions regarding GOC were done with patient's sister Shreya. Initially had discussed high risk extubation today while maintaining Precedex infusion and sister was agreeable for the same. Discussed with her the limitations with using precedex in the setting of bradycardia and the fact that if we are unable to control delirium patient may likely need re intubation. All discussions were being done with sister as her son did not answer his phone and it was reported that patient and her son have not been on good terms and he is not involved in her care though they live together. Today, Ms. Cash updated us that patient has a daughter Nichole Taylor in [place] ([phone]) and another sister Justine who is a nurse ([phone]) who would be involved in her decision making. I spoke with Nichole who was unaware of her mother's other chronic comorbidities, would like some time to establish goals of care and future plan. I reached out to Justine per family's request- got voicemail- left janine luna requesting callback. In the interim, patient currently placed back on Fentanyl and precedex infusion and back on the ventilator for tonight due to increased agitation. Attestations Medical Necessity Statement*: Needs to be in hospital for management of altered mental status. Coding Level of Care Code Acute Code for [facility] Fwd Diagnoses Altered mental status R41.82 Acute non-ST elevation myocardial infarction (NSTEMI) I21.4 Thrombocytopenia D69.6 Acidosis, lactic E87.20 Hypokalemia E87.6 Hypomagnesemia E83.42 Cirrhosis of liver K74.69 Hepatic cirrhosis type: other cirrhosis Nicotine dependence, cigarettes, with unspecified nicotine-induced disorders F17.219 Persistent cognitive impairment R41.89 Cerebellar atrophy G31.9
--- NOTE | 2022-12-24 19:25 | PC.NURSE ---
Shift summary: Pt remains sedated and intubated. Started the day off on CPAP now VC-AC. FIO2 has remained at 30%. She does not follow commands. Pupils remain equally reactive. This am if moved for care she would thrash in the bed, appears to have decerebrate posturing, she nearly dislodged the ETT. HEr heart rate would go above 100 and she would become hypertensive. Have not seen that since this am. She had Fentanyl at 25mcg/min and Precedex at 0.4mcg/kg/hr. She was bradycardic at 48-55 bpm. She would still thrash around in the bed. DR Bates stated we wuold not be extubating restart the Proppofol. PRopofol restarted, infusing at 20mcg.kg/min, no chagnes in rate. Pecedex stopped at that time. Pt no longer thrashing if repositioned or other care provided. SHe did become hypotensive after this, so Levophed restarted. It in is infusing at 3 mcg/min. Her heart rate dropped to 41 this evening, Fentanyl gtt stopped. HEr heart rate has remained 41-47 the rest of the evening. Urinary output of 550ml this sift. Rectal tube remains in place. Pt afebrile this shift.
[2022-12-24 21:18] LABS: Glucose Point of Care 175 mg/dL (70-110)
[2022-12-24] MEDS: atorvastatin 40 mg Tablet 80 MG PO (21:32)
[2022-12-24] MEDS: pantoprazole 40 mg SDV IVP (21:32)
[2022-12-24] MEDS: trazodone 100 mg Tablet PO (21:41)
[2022-12-25] VITALS (52 sets, daily range): BP systolic 87–164; BP diastolic 53–91; PULSE 46–72; RESP 14–19; TEMP 36.6–36.7; O2SAT 92–100
[2022-12-25] MEDS: vancomycin 1,250 MG/250 ML PIGGYBACK 100 MG IV (00:28)
--- NOTE | 2022-12-25 04:59 | PC.NURSE ---
Upon shift arrival patient was calm and resting. Further into the shift patient became very aroused and thrashing around in the bed. Propofol began increasing and patient started becoming increasingly calm again. Patient did have to have levophed increased due to the increase of propofol.
[2022-12-25] MEDS: propofol 1,000 MG/100 ML INJ 19.6 MG IV ×2 (06:22→12:30)
[2022-12-25 06:31] LABS: Basophils % 0.1 %; Eosinophils # 0.1 10^3/uL (0.0-0.8); Eosinophils % 0.8 %; Hematocrit 33.3 % (37.0-47.0); Hemoglobin 10.8 g/dL (11.5-15.3); Lymphocytes # 3.1 10^3/uL (0.8-4.8); Lymphocytes % 19.7 %; Mean Corpuscular HGB Conc 32.4 g/dL (30.0-36.0); Mean Corpuscular Hemoglobin 28.4 pg (28.0-34.0); Mean Corpuscular Volume 87.6 fl (81-99); Mean Platelet Volume 10.4 fL (7.4-10.4); Monocytes # 1.5 10^3/uL (0.2-0.9); Monocytes % 9.6 %; Neutrophils # 10.75 10^3/uL (1.8-7.7); Neutrophils % 69.1 %; Nucleated Red Blood Cells % 0.2 %; Platelet Count 88 10^3/cmm (130-400); Red Cell Distribution Width 16.5 % (12.1-15.1); White Blood Count 15.6 10^3/uL (4.0-10.0)
[2022-12-25 06:54] LABS: Alanine Aminotransferase 34 U/L (0-33); Albumin Level 2.6 g/dL (3.5-5.2); Alkaline Phosphatase 71 U/L (35-105); Anion Gap 9.1 (5-19); Aspartate Amino Transferase 42 U/L (0-32); Blood Urea Nitrogen 22 mg/dL (8-23); Calcium 7.5 mg/dL (8.5-10.5); Carbon Dioxide 24 mmol/L (22-29); Chloride 110 mmol/L (98-107); Globulin 3.9 g/dL (1.3-4.6); Glomerular Filtration Rate 122.7 mL/min (90-130); Glucose 182 mg/dL (65-115); Osmolality Calculated 298 mOsm/kg (285-295); Potassium 3.1 mmol/L (3.5-5.1); Sodium 140 mmol/L (136-145); Total Protein 6.5 g/dL (6.6-8.7)
[2022-12-25 07:07] LABS: Ammonia 56 umol/L (11-51)
[2022-12-25 07:32] LABS: Glucose Point of Care 201 mg/dL (70-110)
[2022-12-25] MEDS: insulin lispro 100 unit/1 mL SUBCUT ×4 (07:57→21:08)
[2022-12-25] MEDS: aspirin 81 mg Chew Tablet PEG-TUBE (08:03)
[2022-12-25] MEDS: OLANZapine 5 mg ODT 2.5 MG PO ×2 (08:03→17:11)
[2022-12-25] MEDS: nicotine 21 mg Patch 1 PATCH TRANSDERMA (08:03)
[2022-12-25] MEDS: fluoxetine 10 mg Capsule PO (08:04)
[2022-12-25] MEDS: clopidogrel 75 mg Tablet PO (08:04)
[2022-12-25] MEDS: nystatin 100,000 unit/mL UDC 5 mL 500000 UNIT PO ×4 (08:08→21:09)
[2022-12-25] MEDS: lidocaine 1% 5 ML in potassium chloride premix 100 ML 26.25 ML IV (09:20)
--- NOTE | 2022-12-25 09:47 | PC.OT ---
OT evaluation attempted though patient was not in room-gone for testing. Per notes, patient continues to be sedated and intubated. Will attempt evaluation tomorrow if able.
[2022-12-25 11:34] LABS: Glucose Point of Care 187 mg/dL (70-110)
[2022-12-25 12:14] LABS: Vancomycin Trough 11.5 ug/mL (10-15)
[2022-12-25] MEDS: vancomycin 1,250 MG/250 ML PIGGYBACK 250 MG IV (12:19)
--- NOTE | 2022-12-25 15:22 | PM.PN ---
Subjective Subjective: Patient was seen and examined this morning, repeat CT head without contrast done today: Has shown acute hemorrhagic stroke, patient is currently intubated and sedated, she is also started requiring minimal Levophed, possibly secondary to propofol use, continue to be in sinus bradycardia, platelet count is improved today to 88,000, serum ammonia is appropriately trending down: It is 56 today, hypokalemia correction has been undertaken, today white cell count has trended up to 15.6, patient been afebrile so far. Medications: Reviewed: Yes Medication Review Details: Generic Name Dose Route Start Last Admin Trade Name Freq PRN Reason Stop Dose Admin Aspirin 81 mg 12/22/22 11:15 12/25/22 08:03 Aspirin 81 Mg Ch ew Tablet PEG-TUBE 81 mg DAILY EDENILSON Administration Atorvastatin Calci um 80 mg 12/19/22 21:00 12/24/22 21:32 Atorvastatin 40 Mg Tablet PO 80 mg BEDTIME EDENILSON Administration Clopidogrel Bisulf ate 75 mg 12/20/22 09:00 12/25/22 08:04 Clopidogrel 75 M g Tablet PO 75 mg DAILY EDENILSON Administration Fluoxetine HCl 10 mg 12/22/22 09:00 12/25/22 08:04 Fluoxetine 10 Mg Capsule PO 10 mg DAILY EDENILSON Administration Propofol 1,000 mg in 100 m ls @ 0 mls/hr 12/18/22 14:45 12/25/22 12:30 Diprivan IV 45 mcg/kg/min .Q0M EDENILSON 19.6 mls/hr Administration Protocol Per Protocol Norepinephrine Bit artrate 4 mg 254 mls @ 0 mls/h r 12/19/22 02:00 12/25/22 15:15 / Dextrose IV 4 mcg/min .Q0M EDENILSON 15.24 mls/hr Titration Protocol Per Protocol Dexmedetomidine HC l 400 mcg/ 104 mls @ 0 mls/h r 12/23/22 17:45 12/24/22 19:22 Sodium Chloride IV Infused .Q0M EDENILSON Titration Protocol Per Protocol Vancomycin/PEG/NAD A/Lysine/Water 1,250 mg in 250 m ls @ 250 mls/hr 12/24/22 01:00 12/25/22 13:19 Vancocin IV Infused Q12H EDENILSON Infusion Insulin Human Lisp ro 0 unit 12/19/22 18:00 12/25/22 11:44 Insulin Lispro 1 00 Unit/1 Ml SUBCUT 4 unit WM&BEDTIME EDENILSON Administration Protocol Lactulose 20 gm 12/21/22 22:29 12/22/22 17:02 Lactulose Oral L iq 20 Gm/30 Ml Udc PO 20 gm Q1H PRN Administration to induce Bowel M ovement Nicotine 1 patch 12/20/22 09:00 12/25/22 08:03 Nicotine 21 Mg P atch TRANSDERMA 1 patch DAILY EDENILSON Administration Nystatin 500,000 unit 12/21/22 17:00 12/25/22 12:19 Nystatin 100,000 Unit/Ml Udc 5 Ml PO 500,000 unit QID EDENILSON Administration Olanzapine 2.5 mg 12/24/22 09:00 12/25/22 08:03 Olanzapine 5 Mg Odt PO 2.5 mg BID EDENILSON Administration Pantoprazole Sodiu m 40 mg 12/18/22 21:22 12/24/22 21:32 Pantoprazole 40 Mg Sdv IVP 40 mg Q24H EDENILSON Administration Rifaximin 550 mg 12/19/22 18:00 12/25/22 08:03 Rifaximin 550 Mg Tablet NG-TUBE 550 mg BID EDENILSON Administration Protocol Trazodone HCl 100 mg 12/21/22 21:00 12/24/22 21:41 Trazodone 100 Mg Tablet PO 100 mg BEDTIME EDENILSON Administration Vitals/I&O/Wt Last Vital Signs Temp 98.0 F 12/25/22 00:00 Pulse 50 L 12/25/22 14:00 Resp 14 12/25/22 14:43 BP 105/58 12/25/22 12:30 Pulse Ox 97 12/25/22 14:43 O2 Del Method Mechanical Ventilation 12/24/22 21:38 O2 Flow Rate 2 12/18/22 13:58 FiO2 30 12/25/22 14:43 12/25/22 12/25/22 12/25/22 06:59 14:59 22:59 Intake Total 626.730 / 2199.048 586.004 / 586.004 120.015 / 706.019 Output Total 600 / 1150 Balance 26.730 / 1049.048 586.004 / 586.004 120.015 / 706.019 Weight last 48 hrs Weight 88.451 kg Weight 87.997 kg Physical Exam Narrative: Intubated sedated on mechanical ventilation HENMT: COMMON NORMALS: normocephalic and atraumatic HEAD & SCALP: normocephalic and atraumatic Resp: EFFORT & INSPECTION: Yes symmetric chest movement OTHER: Diminished air entry bilaterally. Cardio: COMMON NORMALS: regular rate, regular rhythm, S1 normal heart sound present, S2 normal heart sound present, No gallops present (Cardio), No murmurs present (Cardio), No rub (Cardio) and Peripheral pulses 2+ throughout RATE: regular rate RHYTHM: regular rhythm HEART SOUNDS: S1 normal heart sound present and S2 normal heart sound present PERIPHERAL PULSES: Peripheral pulses 2+ throughout GI: COMMON NORMALS: Normal to inspection, nondistended, normoactive bowel sounds present, Soft to palpation, non-tender, No hepatosplenomegaly present and no masses AUSCULTATION: Yes normoactive bowel sounds PALPATION: Yes Soft to palpation and Yes No hepatosplenomegaly present RECTAL EXAM: deferred Extremity: COMMON NORMALS: no clubbing, cyanosis or edema and no pedal edema Urinary Catheter Management: Soriano: Cath Placed During This Visit: no Reason for Continuing Indwelling Catheter: Accurate Measurement of Urinary Output in Critically Ill Patients Data 12/25/22 06:18 12/25/22 06:18 A&P Assessment and plan (1) Altered mental status: Patient was brought to the emergency room in an altered mental status This is likely multifactorial ,with acute delirium from hepatic encephalopathy and underlying dementia Her ammonia level is at 82---> 148--> 112 lactulose frequency increased, with rectal tube in place , loose BM > 1L Continue rifaximin 550mg BID started tube feeds TSH is currently normal at 3.87 CT head with moderate diffuse white matter changes likely reflecting chronic microvascular ischemic changes. Mild diffuse ventricular dilatation similar to prior exams with a chronic communicating hydrocephalus. Resumed her doses of trazodone and fluoxetine, added Zyprexa She does not consume alcohol Patient was intubated on admission due to acute delirium, she has failed weaning trials due to persisting delirium Will additionally evaluate with MRI brain No fever during course of admission (2) Acute non-ST elevation myocardial infarction (NSTEMI): Patient had been having on and off chest pain over the past month and was complaining of chest pain as recently as prior to being found down. Troponin trend 6--> 81--> 224 with a delta of 75 at 2 hours and 200 at 6 hours. Echocardiogram showed a normal LVEF of 59%, mild to moderate concentric LVH without regional wall motion abnormalities Grade 1 diastolic dysfunction and mildly thickened aortic and mitral valves. EF has improved from 40% to 59% currently. Patient has a past medical history of CAD Cardiology consult appreciated Ideally would like patient to proceed to [facility], however her low platelets and unclear baseline mentation and persisting delirium certainly remain a concern. Failed weaning trial on 12/21 and again today due to agitation. Continue ASA 75mg TX daily, plavix 75mg daily, atorvastatin 80mg daily s/p heparin infusion for initial 48 hrs. (3) Thrombocytopenia: Chronic, case discussed with her outpatient narcotics detective Per Dr. Louis's recommendation, sent peripheral smear to evaluate for giant platelets which would be suggestive of splenic sequestration. No giant platelets were seen on the peripheral smear per pathologist. No signs of splenic sequestration per review of peripheral smear. 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 Patient will need bone marrow biopsy for definitive diagnosis Recommended that for now transfuse patient to keep a platelet count closer to 70,000 during the acute phase and while undergoing cardiac management. Bone marrow biopsy deferred to outpatient. For possibility of ITP, recommended high-dose steroids dexamethasone 40 mg daily for 96 hours ---> completed without any significant benefit. Platelet improved to 70K today after 2 units platelt transfusion on 12/21 Discussed extensively the risk of potential bleeding with antiplatelet agents in the setting of thrombocytopenia with her sister Shreya stephens. Her sister acknowledges understanding of Luh's complicated medical history and currently complicated medical decision making and states that she would like to prioritize the heart understanding all risks of potential bleeding. (4) Acidosis, lactic: Now resolved (5) Hypokalemia: Resolved (6) Hypomagnesemia: (7) Cirrhosis of liver: Secondary to steatohepatitis vs autoimmune hepatitis Recently established with tailing hand as outpatient Qualifiers: Hepatic cirrhosis type: other cirrhosis Qualified Code(s): K74.69 - Other cirrhosis of liver (8) Nicotine dependence, cigarettes, with unspecified nicotine-induced disorders: start nicotine patch. (9) Persistent cognitive impairment: Likely related to known dementia (10) Cerebellar atrophy: (11) CVA (cerebrovascular accident due to intracerebral hemorrhage): Hold aspirin Plavix. Plan Infectious evaluation: Low probability as primary cause CT chest B/L atelactasis vs infiltrate- would not explain degree of symptoms currently Blood cx negative to date no acute abdominal pathology known liver cirrhosis, enlarged spleen, perihepatic ascites Initially blood cultures were reported as positive for gram-positive bacilli, per confirmation with lab today, this was likely reported on the wrong patient. Patient's blood cultures are currently negative to date s/p cefepime and vancomycin empirically 12/18-12/21 PUD prophylaxis: Protonix 40 mg IV daily DVT prophylaxis: Contraindicated given falling platelets Full code All updates in patient's critical illness discussed with her sister Shreya Stephens. Multiple discussions regarding GOC were done with patient's sister Shreya. Initially had discussed high risk extubation today while maintaining Precedex infusion and sister was agreeable for the same. Discussed with her the limitations with using precedex in the setting of bradycardia and the fact that if we are unable to control delirium patient may likely need re intubation. All discussions were being done with sister as her son did not answer his phone and it was reported that patient and her son have not been on good terms and he is not involved in her care though they live together. Today, Ms. Cash updated us that patient has a daughter Nichole Taylor in [place] ([phone]) and another sister Justine who is a nurse ([phone]) who would be involved in her decision making. I spoke with Nichole who was unaware of her mother's other chronic comorbidities, would like some time to establish goals of care and future plan. I reached out to Justine per family's request- got voicemail- left message requesting callback. In the interim, patient currently placed back on Fentanyl and precedex infusion and back on the ventilator for tonight due to increased agitation. Disposition: Patient family was reached out today again, her sister is driving from [place], once they are here family meeting will be done, goals of care will be discussed. Attestations Medical Necessity Statement*: Needs to be in hospital for management of altered mental status. Coding Level of Care Code Acute Code for [facility] Fwd Diagnoses Altered mental status R41.82 Acute non-ST elevation myocardial infarction (NSTEMI) I21.4 Thrombocytopenia D69.6 Acidosis, lactic E87.20 Hypokalemia E87.6 Hypomagnesemia E83.42 Cirrhosis of liver K74.69 Hepatic cirrhosis type: other cirrhosis Nicotine dependence, cigarettes, with unspecified nicotine-induced disorders F17.219 Persistent cognitive impairment R41.89 Cerebellar atrophy G31.9 CVA (cerebrovascular accident due to intracerebral hemorrhage) I61.9
[2022-12-25 17:10] LABS: Glucose Point of Care 167 mg/dL (70-110)
--- NOTE | 2022-12-25 17:56 | CTR_ITS ---
PROCEDURE INFORMATION: Exam: CT Head Without Contrast Exam date and time: 12/25/2022 9:46 AM Age: 67 years old Clinical indication: Altered mental status/memory loss; Additional info: AMS TECHNIQUE: Imaging protocol: Computed tomography of the head without contrast. Radiation optimization: All CT scans at this facility use at least one of these dose optimization techniques: automated exposure control; mA and/or kV adjustment per patient size (includes targeted exams where dose is matched to clinical indication); or iterative reconstruction. REPORTING DATA: Count of CT and Cardiac NM exams in prior 12 months: This patient has received 3 known CTs and 0 known cardiac nuclear medicine studies in the 12 months prior to the current study. COMPARISON: CT head wo con* [id number] 12/21/2022 1:44 PM RADIATION DOSE METRICS: Total DLP (mGy-cm): 1067.88 FINDINGS: Brain: Interval focal 3.7 mm cortical hemorrhage superior/posterior right superior frontal gyrus (series 3, image 39; series 8, image 44). Moderate hypoattenuating foci are noted in the posterior superior periatrial and anterior lateral ventricular periventricular white matter bilaterally. No mass or acute cortical infarction identified. Ventricles: Prominence of the ventricular system and subarachnoid spaces is consistent with the patient's age of 67 years. Paranasal sinuses: Mild inferior anterior mucosal thickening, mild posterior dependent fluid left sphenoid sinus, stable. Mastoid air cells: Visualized mastoid air cells are well aerated. Bones/joints: No acute abnormality. No acute fracture. Soft tissues: Unremarkable. Vasculature: Atherosclerotic calcifications are present involving the carotid artery siphons bilaterally and the left vertebral artery. CT/CT head wo con* [id number] IMPRESSION: 1. Interval focal 3.7 mm cortical hemorrhage superior/posterior right superior frontal gyrus (series 3, image 39; series 8, image 44). 2. Age appropriate supratentorial and infratentorial atrophy. 3. Moderate chronic white matter microvascular ischemic disease.
[2022-12-25] MEDS: propofol 1,000 MG/100 ML INJ 17.42 MG IV (18:15)
[2022-12-25 21:03] LABS: Glucose Point of Care 175 mg/dL (70-110)
[2022-12-25] MEDS: trazodone 100 mg Tablet PO (21:08)
[2022-12-25] MEDS: atorvastatin 40 mg Tablet 80 MG PO (21:08)
[2022-12-25] MEDS: pantoprazole 40 mg SDV IVP (21:08)
[2022-12-26] VITALS (40 sets, daily range): BP systolic 78–204; BP diastolic 53–125; PULSE 54–102; RESP 14–21; TEMP 36.6–37.9; O2SAT 91–100
[2022-12-26] MEDS: vancomycin 1,250 MG/250 ML PIGGYBACK 250 MG IV ×2 (00:35→12:32)
[2022-12-26] MEDS: propofol 1,000 MG/100 ML INJ 17.42 MG IV (03:26)
[2022-12-26 05:12] LABS: Basophils % 0.1 %; Eosinophils # 0.4 10^3/uL (0.0-0.8); Eosinophils % 3.4 %; Hematocrit 31.7 % (37.0-47.0); Lymphocytes # 1.9 10^3/uL (0.8-4.8); Mean Corpuscular HGB Conc 31.5 g/dL (30.0-36.0); Mean Corpuscular Hemoglobin 29.2 pg (28.0-34.0); Mean Corpuscular Volume 92.7 fl (81-99); Mean Platelet Volume 10.4 fL (7.4-10.4); Monocytes % 9.4 %; Neutrophils # 7.14 10^3/uL (1.8-7.7); Neutrophils % 68.4 %; Nucleated Red Blood Cells % 0.2 %; Platelet Count 51 10^3/cmm (130-400); Red Blood Count 3.42 10^6/uL (4.1-5.3); Red Cell Distribution Width 16.3 % (12.1-15.1); White Blood Count 10.4 10^3/uL (4.0-10.0)
[2022-12-26 05:31] LABS: Alanine Aminotransferase 31 U/L (0-33); Albumin Level 2.1 g/dL (3.5-5.2); Alkaline Phosphatase 71 U/L (35-105); Anion Gap 9.4 (5-19); Aspartate Amino Transferase 38 U/L (0-32); Blood Urea Nitrogen 18 mg/dL (8-23); Calcium 7.3 mg/dL (8.5-10.5); Carbon Dioxide 23 mmol/L (22-29); Chloride 108 mmol/L (98-107); Globulin 3.7 g/dL (1.3-4.6); Glomerular Filtration Rate 99.4 mL/min (90-130); Glucose 177 mg/dL (65-115); Osmolality Calculated 290 mOsm/kg (285-295); Potassium 3.4 mmol/L (3.5-5.1); Sodium 137 mmol/L (136-145); Total Bilirubin 1.6 mg/dL (0.15-1.2); Total Protein 5.8 g/dL (6.6-8.7)
[2022-12-26 05:33] LABS: Ammonia 71 umol/L (11-51)
[2022-12-26 05:43] LABS: Slide Review Slide Review Perform
--- NOTE | 2022-12-26 05:49 | PC.NURSE ---
Patient has remained stable throughout shift. Sisters have arrived in from [place]. Levophed was on 2 upon arrival of shift. Family is very concerned about patient. Urine output has decreased, Bath given and tolerated well with sedation.
[2022-12-26 07:46] LABS: Glucose Point of Care 155 mg/dL (70-110)
[2022-12-26] MEDS: OLANZapine 5 mg ODT 2.5 MG PO ×2 (08:24→17:52)
[2022-12-26] MEDS: fluoxetine 10 mg Capsule PO (08:24)
[2022-12-26] MEDS: nicotine 21 mg Patch 1 PATCH TRANSDERMA (08:24)
[2022-12-26] MEDS: insulin lispro 100 unit/1 mL SUBCUT ×4 (08:26→21:47)
[2022-12-26] MEDS: nystatin 100,000 unit/mL UDC 5 mL 500000 UNIT PO ×4 (08:27→21:13)
[2022-12-26 11:17] LABS: Glucose Point of Care 179 mg/dL (70-110)
--- NOTE | 2022-12-26 11:44 | PC.OT ---
WILL CONTINUE TO HOLD EVALUATION AND REVISIT AT LATER TIME AFTER FAMILY MEETING HAS BEEN HELD.
[2022-12-26] MEDS: dexmedetomidine 400 MCG in sodium chloride 0.9% (100 ml) 100 ML IV (12:33)
--- NOTE | 2022-12-26 16:15 | P.PN_ITS ---
Subjective Subjective: Patient was seen and examined this morning, all sedations were turned off today, to assess her mentation, she started again becoming extremely agitated, though she spontaneously opens eyes, withdraws to pain, but she did not follow any command, family was at bedside, they were updated. She was started on Precedex, as well as low-dose fentanyl, will also use low- dose propofol if needed. If patient mentation continues to be the same, family has agreed upon for terminal extubation, and make her comfort care. Medications: Reviewed: Yes Medication Review Details: Generic Name Dose Route Start Last Admin Trade Name Park PRN Reason Stop Dose Admin Aspirin 81 mg 12/22/22 11:15 12/25/22 08:03 Aspirin 81 Mg Ch ew Tablet PEG-TUBE 81 mg DAILY EDENILSON Administration Atorvastatin Calci um 80 mg 12/19/22 21:00 12/25/22 21:08 Atorvastatin 40 Mg Tablet PO 80 mg BEDTIME EDENILSON Administration Clopidogrel Bisulf ate 75 mg 12/20/22 09:00 12/25/22 08:04 Clopidogrel 75 M g Tablet PO 75 mg DAILY EDENILSON Administration Fluoxetine HCl 10 mg 12/22/22 09:00 12/26/22 08:24 Fluoxetine 10 Mg Capsule PO 10 mg DAILY EDENILSON Administration Propofol 1,000 mg in 100 m ls @ 0 mls/hr 12/18/22 14:45 12/26/22 11:15 Diprivan IV Infused .Q0M EDENILSON Titration Protocol Per Protocol Norepinephrine Bit artrate 4 mg 254 mls @ 0 mls/h r 12/19/22 02:00 12/26/22 12:33 / Dextrose IV 0 mcg/min .Q0M EDENILSON 0 mls/hr Titration Protocol Per Protocol Dexmedetomidine HC l 400 mcg/ 104 mls @ 0 mls/h r 12/23/22 17:45 12/26/22 15:34 Sodium Chloride IV 0.02 mcg/kg/hr .Q0M EDENILSON 0.5 mls/hr Titration Protocol Per Protocol Vancomycin/PEG/NAD A/Lysine/Water 1,250 mg in 250 m ls @ 250 mls/hr 12/24/22 01:00 12/26/22 15:34 Vancocin IV Infused Q12H EDENILSON Infusion Fentanyl 2,500 mcg / Sodium 250 mls @ 0 mls/h r 12/25/22 20:45 12/26/22 15:00 Chloride IV 25 mcg/hr .Q0M EDENILSON 2.5 mls/hr Titration Protocol Per Protocol Insulin Human Lisp ro 0 unit 12/19/22 18:00 12/26/22 12:32 Insulin Lispro 1 00 Unit/1 Ml SUBCUT 2 unit WM&BEDTIME EDENILSON Administration Protocol Lactulose 20 gm 12/21/22 22:29 12/22/22 17:02 Lactulose Oral L iq 20 Gm/30 Ml Udc PO 20 gm Q1H PRN Administration to induce Bowel M ovement Nicotine 1 patch 12/20/22 09:00 12/26/22 08:24 Nicotine 21 Mg P atch TRANSDERMA 1 patch DAILY EDENILSON Administration Nystatin 500,000 unit 12/21/22 17:00 12/26/22 14:55 Nystatin 100,000 Unit/Ml Udc 5 Ml PO 500,000 unit QID EDENILSON Administration Olanzapine 2.5 mg 12/24/22 09:00 12/26/22 08:24 Olanzapine 5 Mg Odt PO 2.5 mg BID EDENILSON Administration Pantoprazole Sodiu m 40 mg 12/18/22 21:22 12/25/22 21:08 Pantoprazole 40 Mg Sdv IVP 40 mg Q24H EDENILSON Administration Rifaximin 550 mg 12/19/22 18:00 12/26/22 08:23 Rifaximin 550 Mg Tablet NG-TUBE 550 mg BID EDENILSON Administration Protocol Trazodone HCl 100 mg 12/21/22 21:00 12/25/22 21:08 Trazodone 100 Mg Tablet PO 100 mg BEDTIME EDENILSON Administration Vitals/I&O/Wt Last Vital Signs Temp 98.1 F 12/26/22 10:00 Pulse 97 12/26/22 14:00 Resp 14 12/26/22 14:00 BP 133/98 12/26/22 14:00 Pulse Ox 91 12/26/22 14:00 O2 Del Method Mechanical Ventilation 12/26/22 14:00 O2 Flow Rate 2 12/18/22 13:58 FiO2 30 12/26/22 14:00 12/26/22 12/26/22 12/26/22 06:59 14:59 22:59 Intake Total 870.582 / 1698.953 228.199 / 228.199 250.527 / 478.726 Output Total 403 / 953 Balance 467.582 / 745.953 228.199 / 228.199 250.527 / 478.726 Weight last 48 hrs Weight 93.894 kg Weight 88.451 kg Physical Exam Narrative: Intubated sedated on mechanical ventilation HENMT: COMMON NORMALS: normocephalic and atraumatic HEAD & SCALP: normocephalic and atraumatic Resp: EFFORT & INSPECTION: Yes symmetric chest movement OTHER: Diminished air entry bilaterally. Cardio: COMMON NORMALS: regular rate, regular rhythm, S1 normal heart sound present, S2 normal heart sound present, No gallops present (Cardio), No murmurs present (Cardio), No rub (Cardio) and Peripheral pulses 2+ throughout RATE: regular rate RHYTHM: regular rhythm HEART SOUNDS: S1 normal heart sound present and S2 normal heart sound present PERIPHERAL PULSES: Peripheral pulses 2+ throughout GI: COMMON NORMALS: Normal to inspection, nondistended, normoactive bowel sounds present, Soft to palpation, non-tender, No hepatosplenomegaly present and no masses AUSCULTATION: Yes normoactive bowel sounds PALPATION: Yes Soft to palpation and Yes No hepatosplenomegaly present RECTAL EXAM: deferred Extremity: COMMON NORMALS: no clubbing, cyanosis or edema and no pedal edema Urinary Catheter Management: Soriano: Cath Placed During This Visit: no Reason for Continuing Indwelling Catheter: Accurate Measurement of Urinary Output in Critically Ill Patients Data 12/26/22 04:58 12/26/22 04:58 A&P Assessment and plan (1) Altered mental status: Patient was brought to the emergency room in an altered mental status This is likely multifactorial ,with acute delirium from hepatic encephalopathy and underlying dementia Her ammonia level is at 82---> 148--> 112 lactulose frequency increased, with rectal tube in place , loose BM > 1L Continue rifaximin 550mg BID started tube feeds TSH is currently normal at 3.87 CT head with moderate diffuse white matter changes likely reflecting chronic microvascular ischemic changes. Mild diffuse ventricular dilatation similar to prior exams with a chronic communicating hydrocephalus. Resumed her doses of trazodone and fluoxetine, added Zyprexa She does not consume alcohol Patient was intubated on admission due to acute delirium, she has failed weaning trials due to persisting delirium Will additionally evaluate with MRI brain No fever during course of admission (2) Acute non-ST elevation myocardial infarction (NSTEMI): Patient had been having on and off chest pain over the past month and was complaining of chest pain as recently as prior to being found down. Troponin trend 6--> 81--> 224 with a delta of 75 at 2 hours and 200 at 6 hours. Echocardiogram showed a normal LVEF of 59%, mild to moderate concentric LVH without regional wall motion abnormalities Grade 1 diastolic dysfunction and mildly thickened aortic and mitral valves. EF has improved from 40% to 59% currently. Patient has a past medical history of CAD Cardiology consult appreciated Ideally would like patient to proceed to Bulk Sealer Operator, however her low platelets and unclear baseline mentation and persisting delirium certainly remain a concern. Failed weaning trial on 12/21 and again today due to agitation. Continue ASA 75mg [place] daily, plavix 75mg daily, atorvastatin 80mg daily s/p heparin infusion for initial 48 hrs. (3) Thrombocytopenia: Chronic, case discussed with her outpatient pensions retirement plan specialist Per Dr. Louis's recommendation, sent peripheral smear to evaluate for giant platelets which would be suggestive of splenic sequestration. No giant platelets were seen on the peripheral smear per pathologist. No signs of splenic sequestration per review of peripheral smear. 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 Patient will need bone marrow biopsy for definitive diagnosis Recommended that for now transfuse patient to keep a platelet count closer to 70,000 during the acute phase and while undergoing cardiac management. Bone marrow biopsy deferred to outpatient. For possibility of ITP, recommended high-dose steroids dexamethasone 40 mg daily for 96 hours ---> completed without any significant benefit. Platelet improved to 70K today after 2 units platelt transfusion on 12/21 Discussed extensively the risk of potential bleeding with antiplatelet agents in the setting of thrombocytopenia with her sister Shreya stephens. Her sister acknowledges understanding of Luh's complicated medical history and currently complicated medical decision making and states that she would like to prioritize the heart understanding all risks of potential bleeding. (4) Acidosis, lactic: Now resolved (5) Hypokalemia: Resolved (6) Hypomagnesemia: (7) Cirrhosis of liver: Secondary to steatohepatitis vs autoimmune hepatitis Recently established with logistics manager as outpatient Qualifiers: Hepatic cirrhosis type: other cirrhosis Qualified Code(s): K74.69 - Other cirrhosis of liver (8) Nicotine dependence, cigarettes, with unspecified nicotine-induced disorders: start nicotine patch. (9) Persistent cognitive impairment: Likely related to known dementia (10) Cerebellar atrophy: (11) CVA (cerebrovascular accident due to intracerebral hemorrhage): Hold aspirin Plavix. Plan Infectious evaluation: Low probability as primary cause CT chest B/L atelactasis vs infiltrate- would not explain degree of symptoms currently Blood cx negative to date no acute abdominal pathology known liver cirrhosis, enlarged spleen, perihepatic ascites Initially blood cultures were reported as positive for gram-positive bacilli, per confirmation with lab today, this was likely reported on the wrong patient. Patient's blood cultures are currently negative to date s/p cefepime and vancomycin empirically 12/18-12/21 PUD prophylaxis: Protonix 40 mg IV daily DVT prophylaxis: Contraindicated given falling platelets Full code All updates in patient's critical illness discussed with her sister Shreya Stephens. Multiple discussions regarding GOC were done with patient's sister Shreya. Initially had discussed high risk extubation today while maintaining Precedex infusion and sister was agreeable for the same. Discussed with her the limitations with using precedex in the setting of bradycardia and the fact that if we are unable to control delirium patient may likely need re intubation. All discussions were being done with sister as her son did not answer his phone and it was reported that patient and her son have not been on good terms and he is not involved in her care though they live together. Today, Ms. Cash updated us that patient has a daughter Nichole Taylor in [place] ([phone]) and another sister Justine who is a nurse ([phone]) who would be involved in her decision making. I spoke with Nichole who was unaware of her mother's other [facility] comorbidities, would like some time to establish goals of care and future plan. I reached out to Justine per family's request- got voicemail- left message requesting callback. In the interim, patient currently placed back on Fentanyl and precedex infusion and back on the ventilator for tonight due to increased agitation. Disposition: Patient family was updated goals of care has been discussed. Attestations Medical Necessity Statement*: In hospital for management of altered mental status. Coding Level of Care Code Acute Code for [facility] Diagnoses Altered mental status R41.82 Acute non-ST elevation myocardial infarction (NSTEMI) I21.4 Thrombocytopenia D69.6 Acidosis, lactic E87.20 Hypokalemia E87.6 Hypomagnesemia E83.42 Cirrhosis of liver K74.69 Hepatic cirrhosis type: other cirrhosis Nicotine dependence, cigarettes, with unspecified nicotine-induced disorders F17.219 Persistent cognitive impairment R41.89 Cerebellar atrophy G31.9 CVA (cerebrovascular accident due to intracerebral hemorrhage) I61.9
[2022-12-26 17:51] LABS: Glucose Point of Care 207 mg/dL (70-110)
[2022-12-26] MEDS: propofol 1,000 MG/100 ML INJ 2.18 MG IV (19:12)
[2022-12-26] MEDS: atorvastatin 40 mg Tablet 80 MG PO (21:13)
[2022-12-26] MEDS: pantoprazole 40 mg SDV IVP (21:13)
[2022-12-26] MEDS: trazodone 100 mg Tablet PO (21:13)
[2022-12-26 21:48] LABS: Glucose Point of Care 226 mg/dL (70-110)
--- NOTE | 2022-12-26 22:00 | PC.NURSE ---
Family Discussion Son, Vincent Taylor, along with patient's sisters asking to speak with the doctor assigned to patient's case about care options including transfer. Family informed that doctor will be back in the morning to round on patient; family verbalized understanding.
[2022-12-26] MEDS: dexmedetomidine 400 MCG in sodium chloride 0.9% (100 ml) 100 ML 8.26 MCG IV (23:16)
[2022-12-27] VITALS (46 sets, daily range): BP systolic 75–134; BP diastolic 48–82; PULSE 44–71; RESP 12–18; TEMP 36.1–37.5; O2SAT 92–98; BMI 35.5
[2022-12-27] MEDS: vancomycin 1,250 MG/250 ML PIGGYBACK 250 MG IV ×2 (01:22→12:49)
[2022-12-27 05:37] LABS: Basophils % 0.1 %; Eosinophils # 0.4 10^3/uL (0.0-0.8); Eosinophils % 3.2 %; Hematocrit 31.4 % (37.0-47.0); Hemoglobin 10.2 g/dL (11.5-15.3); Lymphocytes # 1.8 10^3/uL (0.8-4.8); Lymphocytes % 12.7 %; Mean Corpuscular HGB Conc 32.5 g/dL (30.0-36.0); Mean Corpuscular Hemoglobin 28.5 pg (28.0-34.0); Mean Corpuscular Volume 87.7 fl (81-99); Mean Platelet Volume 11.6 fL (7.4-10.4); Monocytes # 1.3 10^3/uL (0.2-0.9); Monocytes % 9.4 %; Neutrophils # 10.11 10^3/uL (1.8-7.7); Neutrophils % 73.5 %; Nucleated Red Blood Cells % 0.3 %; Platelet Count 50 10^3/cmm (130-400); Red Blood Count 3.58 10^6/uL (4.1-5.3); Red Cell Distribution Width 15.9 % (12.1-15.1); White Blood Count 13.8 10^3/uL (4.0-10.0)
[2022-12-27 05:55] LABS: Alanine Aminotransferase 32 U/L (0-33); Albumin Level 2.1 g/dL (3.5-5.2); Alkaline Phosphatase 74 U/L (35-105); Aspartate Amino Transferase 41 U/L (0-32); Blood Urea Nitrogen 16 mg/dL (8-23); Calcium 7.3 mg/dL (8.5-10.5); Carbon Dioxide 22 mmol/L (22-29); Chloride 104 mmol/L (98-107); Globulin 3.9 g/dL (1.3-4.6); Glomerular Filtration Rate 122.7 mL/min (90-130); Glucose 240 mg/dL (65-115); Osmolality Calculated 287 mOsm/kg (285-295); Sodium 134 mmol/L (136-145); Total Bilirubin 2.1 mg/dL (0.15-1.2)
[2022-12-27 05:57] LABS: Ammonia 56 umol/L (11-51)
[2022-12-27 05:59] LABS: Anion Gap 11.7 (5-19); Potassium 3.7 mmol/L (3.5-5.1)
[2022-12-27 07:16] LABS: Glucose Point of Care 261 mg/dL (70-110)
[2022-12-27] MEDS: nicotine 21 mg Patch 1 PATCH TRANSDERMA (08:40)
[2022-12-27] MEDS: OLANZapine 5 mg ODT 2.5 MG PO ×2 (08:40→18:21)
[2022-12-27] MEDS: fluoxetine 10 mg Capsule PO (08:40)
[2022-12-27] MEDS: insulin lispro 100 unit/1 mL SUBCUT ×4 (08:42→22:07)
[2022-12-27] MEDS: nystatin 100,000 unit/mL UDC 5 mL 500000 UNIT PO ×4 (09:28→21:56)
[2022-12-27 11:09] LABS: Glucose Point of Care 245 mg/dL (70-110)
--- NOTE | 2022-12-27 11:40 | PC.NURSE ---
MTS (Housekeeping Worker on unit) notified of patient condition. Dr. Bates discussing terminal extubation with family (sisters), waiting on son and daughter to arrive.
--- NOTE | 2022-12-27 13:17 | PC.SOCIAL ---
IMM Updated Updated pt's sister on IMM. No questions voiced. Provided her a copy. Initialed, dated, & timed copy in chart.
[2022-12-27] MEDS: propofol 1,000 MG/100 ML INJ 6.53 MG IV (14:04)
--- NOTE | 2022-12-27 15:06 | PM.PN ---
Subjective Subjective: Patient was seen and examined this morning, family at bedside, had detailed discussion with the family regarding goals of care, including his son, currently they are awaiting few more family members to come in, and once a decision is made regarding whether to proceed with comfort care or not they will let us know. Currently on minimal sedation, she just withdraws to pain. Currently she has also started requiring increasing dose of Levophed, she also had a low-grade temperature spike yesterday overnight:NOTED TMAX OF : 100.3 Medications: Reviewed: Yes Medication Review Details: Generic Name Dose Route Start Last Admin Trade Name Park PRN Reason Stop Dose Admin Aspirin 81 mg 12/22/22 11:15 12/25/22 08:03 Aspirin 81 Mg Ch ew Tablet PEG-TUBE 81 mg DAILY EDENILSON Administration Atorvastatin Calci um 80 mg 12/19/22 21:00 12/26/22 21:13 Atorvastatin 40 Mg Tablet PO 80 mg BEDTIME EDENILSON Administration Clopidogrel Bisulf ate 75 mg 12/20/22 09:00 12/25/22 08:04 Clopidogrel 75 M g Tablet PO 75 mg DAILY EDENILSON Administration Fluoxetine HCl 10 mg 12/22/22 09:00 12/27/22 08:40 Fluoxetine 10 Mg Capsule PO 10 mg DAILY EDENILSON Administration Propofol 1,000 mg in 100 m ls @ 0 mls/hr 12/18/22 14:45 12/27/22 14:04 Diprivan IV 15 mcg/kg/min .Q0M EDENILSON 6.53 mls/hr Administration Protocol Per Protocol Norepinephrine Bit artrate 4 mg 254 mls @ 0 mls/h r 12/19/22 02:00 12/27/22 08:30 / Dextrose IV 6 mcg/min .Q0M EDENILSON 22.86 mls/hr Administration Protocol Per Protocol Dexmedetomidine HC l 400 mcg/ 104 mls @ 0 mls/h r 12/23/22 17:45 12/27/22 06:30 Sodium Chloride IV 0 mcg/kg/hr .Q0M EDENILSON 0 mls/hr Titration Protocol Per Protocol Vancomycin/PEG/NAD A/Lysine/Water 1,250 mg in 250 m ls @ 250 mls/hr 12/24/22 01:00 12/27/22 14:00 Vancocin IV Infused Q12H EDENILSON Infusion Fentanyl 2,500 mcg / Sodium 250 mls @ 0 mls/h r 12/25/22 20:45 12/26/22 23:39 Chloride IV 50 mcg/hr .Q0M EDENILSON 5 mls/hr Titration Protocol Per Protocol Insulin Human Lisp ro 0 unit 12/19/22 18:00 12/27/22 12:50 Insulin Lispro 1 00 Unit/1 Ml SUBCUT 6 unit WM&BEDTIME EDENILSON Administration Protocol Lactulose 20 gm 12/21/22 22:29 12/22/22 17:02 Lactulose Oral L iq 20 Gm/30 Ml Udc PO 20 gm Q1H PRN Administration to induce Bowel M ovement Nicotine 1 patch 12/20/22 09:00 12/27/22 08:40 Nicotine 21 Mg P atch TRANSDERMA 1 patch DAILY EDENILSON Administration Nystatin 500,000 unit 12/21/22 17:00 12/27/22 12:50 Nystatin 100,000 Unit/Ml Udc 5 Ml PO 500,000 unit QID EDENILSON Administration Olanzapine 2.5 mg 12/24/22 09:00 12/27/22 08:40 Olanzapine 5 Mg Odt PO 2.5 mg BID EDENILSON Administration Pantoprazole Sodiu m 40 mg 12/18/22 21:22 12/26/22 21:13 Pantoprazole 40 Mg Sdv IVP 40 mg Q24H EDENILSON Administration Rifaximin 550 mg 12/19/22 18:00 12/27/22 08:40 Rifaximin 550 Mg Tablet NG-TUBE 550 mg BID EDENILSON Administration Protocol Trazodone HCl 100 mg 12/21/22 21:00 12/26/22 21:13 Trazodone 100 Mg Tablet PO 100 mg BEDTIME EDENILSON Administration Vitals/I&O/Wt Last Vital Signs Temp 96.9 F L 12/27/22 09:00 Pulse 47 L 12/27/22 13:30 Resp 18 12/27/22 14:25 BP 104/60 12/27/22 13:30 Pulse Ox 95 12/27/22 14:25 O2 Del Method Mechanical Ventilation 12/27/22 13:30 O2 Flow Rate 2 12/18/22 13:58 FiO2 30 12/27/22 14:25 12/27/22 12/27/22 12/27/22 06:59 14:59 22:59 Intake Total 1273.968 / 2843.579 319 / 319 Output Total 450 / 975 Balance 823.968 / 1868.579 319 / 319 Weight last 48 hrs Weight 90.991 kg Weight 93.894 kg Physical Exam Narrative: Intubated sedated on mechanical ventilation HENMT: COMMON NORMALS: normocephalic and atraumatic HEAD & SCALP: normocephalic and atraumatic Resp: EFFORT & INSPECTION: Yes symmetric chest movement OTHER: Diminished air entry bilaterally. Cardio: COMMON NORMALS: regular rate, regular rhythm, S1 normal heart sound present, S2 normal heart sound present, No gallops present (Cardio), No murmurs present (Cardio), No rub (Cardio) and Peripheral pulses 2+ throughout RATE: regular rate RHYTHM: regular rhythm HEART SOUNDS: S1 normal heart sound present and S2 normal heart sound present PERIPHERAL PULSES: Peripheral pulses 2+ throughout GI: COMMON NORMALS: Normal to inspection, nondistended, normoactive bowel sounds present, Soft to palpation, non-tender, No hepatosplenomegaly present and no masses AUSCULTATION: Yes normoactive bowel sounds PALPATION: Yes Soft to palpation and Yes No hepatosplenomegaly present RECTAL EXAM: deferred Extremity: COMMON NORMALS: no clubbing, cyanosis or edema and no pedal edema Urinary Catheter Management: Soriano: Cath Placed During This Visit: no Reason for Continuing Indwelling Catheter: Accurate Measurement of Urinary Output in Critically Ill Patients Data 12/27/22 05:17 12/27/22 05:17 A&P Assessment and plan (1) Altered mental status: Patient was brought to the emergency room in an altered mental status This is likely multifactorial ,with acute delirium from hepatic encephalopathy and underlying dementia Her ammonia level is at 82---> 148--> 112 lactulose frequency increased, with rectal tube in place , loose BM > 1L Continue rifaximin 550mg BID started tube feeds TSH is currently normal at 3.87 CT head with moderate diffuse white matter changes likely reflecting chronic microvascular ischemic changes. Mild diffuse ventricular dilatation similar to prior exams with a chronic communicating hydrocephalus. Resumed her doses of trazodone and fluoxetine, added Zyprexa She does not consume alcohol Patient was intubated on admission due to acute delirium, she has failed weaning trials due to persisting delirium Will additionally evaluate with MRI brain No fever during course of admission (2) Acute non-ST elevation myocardial infarction (NSTEMI): Patient had been having on and off chest pain over the past month and was complaining of chest pain as recently as prior to being found down. Troponin trend 6--> 81--> 224 with a delta of 75 at 2 hours and 200 at 6 hours. Echocardiogram showed a normal LVEF of 59%, mild to moderate concentric LVH without regional wall motion abnormalities Grade 1 diastolic dysfunction and mildly thickened aortic and mitral valves. EF has improved from 40% to 59% currently. Patient has a past medical history of CAD Cardiology consult appreciated Ideally would like patient to proceed to Core Manager, however her low platelets and unclear baseline mentation and persisting delirium certainly remain a concern. Failed weaning trial on 12/21 and again today due to agitation. Continue ASA 75mg [place] daily, plavix 75mg daily, atorvastatin 80mg daily s/p heparin infusion for initial 48 hrs. (3) Thrombocytopenia: Chronic, case discussed with her outpatient split and drum room supervisor Per Dr. Louis's recommendation, sent peripheral smear to evaluate for giant platelets which would be suggestive of splenic sequestration. No giant platelets were seen on the peripheral smear per pathologist. No signs of splenic sequestration per review of peripheral smear. 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 Patient will need bone marrow biopsy for definitive diagnosis Recommended that for now transfuse patient to keep a platelet count closer to 70,000 during the acute phase and while undergoing cardiac management. Bone marrow biopsy deferred to outpatient. For possibility of ITP, recommended high-dose steroids dexamethasone 40 mg daily for 96 hours ---> completed without any significant benefit. Platelet improved to 70K today after 2 units platelt transfusion on 12/21 Discussed extensively the risk of potential bleeding with antiplatelet agents in the setting of thrombocytopenia with her sister Shreya stephens. Her sister acknowledges understanding of Luh's complicated medical history and currently complicated medical decision making and states that she would like to prioritize the heart understanding all risks of potential bleeding. (4) Acidosis, lactic: Now resolved (5) Hypokalemia: Resolved (6) Hypomagnesemia: (7) Cirrhosis of liver: Secondary to steatohepatitis vs autoimmune hepatitis Recently established with concrete swimming pool installer as outpatient Qualifiers: Hepatic cirrhosis type: other cirrhosis Qualified Code(s): K74.69 - Other cirrhosis of liver (8) Nicotine dependence, cigarettes, with unspecified nicotine-induced disorders: start nicotine patch. (9) Persistent cognitive impairment: Likely related to known dementia (10) Cerebellar atrophy: (11) CVA (cerebrovascular accident due to intracerebral hemorrhage): Hold aspirin Plavix. Plan Infectious evaluation: Low probability as primary cause CT chest B/L atelactasis vs infiltrate- would not explain degree of symptoms currently Blood cx negative to date no acute abdominal pathology known liver cirrhosis, enlarged spleen, perihepatic ascites Initially blood cultures were reported as positive for gram-positive bacilli, per confirmation with lab today, this was likely reported on the wrong patient. Patient's blood cultures are currently negative to date s/p cefepime and vancomycin empirically 12/18-12/21 PUD prophylaxis: Protonix 40 mg IV daily DVT prophylaxis: Contraindicated given falling platelets Full code All updates in patient's critical illness discussed with her sister Shreya Stephens. Multiple discussions regarding GOC were done with patient's sister Shreya. Initially had discussed high risk extubation today while maintaining Precedex infusion and sister was agreeable for the same. Discussed with her the limitations with using precedex in the setting of bradycardia and the fact that if we are unable to control delirium patient may likely need re intubation. All discussions were being done with sister as her son did not answer his phone and it was reported that patient and her son have not been on good terms and he is not involved in her care though they live together. Today, Ms. Cash updated us that patient has a daughter Nichole Taylor in [place] ([phone]) and another sister Justine who is a nurse ([phone]) who would be involved in her decision making. I spoke with Nichole who was unaware of her mother's other chronic comorbidities, would like some time to establish goals of care and future plan. I reached out to Justine per family's request- got voicemail- left message requesting callback. In the interim, patient currently placed back on Fentanyl and precedex infusion and back on the ventilator for tonight due to increased agitation. Disposition: Patient family was updated goals of care has been discussed. Attestations Medical Necessity Statement*: Needs to be in hospital for the management of altered mental status Coding Level of Care Code Acute Code for [facility] Diagnoses Altered mental status R41.82 Acute non-ST elevation myocardial infarction (NSTEMI) I21.4 Thrombocytopenia D69.6 Acidosis, lactic E87.20 Hypokalemia E87.6 Hypomagnesemia E83.42 Cirrhosis of liver K74.69 Hepatic cirrhosis type: other cirrhosis Nicotine dependence, cigarettes, with unspecified nicotine-induced disorders F17.219 Persistent cognitive impairment R41.89 Cerebellar atrophy G31.9 CVA (cerebrovascular accident due to intracerebral hemorrhage) I61.9
--- NOTE | 2022-12-27 15:31 | PC.NURSE ---
[facility] called about patient's 15 yr old foster child. State asked if it was appropriate for child to have video call with patient. Nurse explained that patient is currently on life support and unable to communicate in any way, but family is discussing end of life/comfort care with physician and it is appropriate for child to see patient. State worker to come to hospital to initiate call. Patient's family gives consent.
--- NOTE | 2022-12-27 16:02 | PC.NURSE ---
Goals of care again discussed with family (sisters and son Suleiman). Awaiting decision for comfort care vs continuation of care with trach/peg tube.
[2022-12-27 16:52] LABS: Glucose Point of Care 218 mg/dL (70-110)
--- NOTE | 2022-12-27 16:53 | PC.OT ---
discharge OT orders as family is leaning towards comfort care. If patient able to participate actively with therapy at a later time will look for new orders
[2022-12-27] MEDS: pantoprazole 40 mg SDV IVP (21:55)
[2022-12-27] MEDS: trazodone 100 mg Tablet PO (21:56)
[2022-12-27] MEDS: atorvastatin 40 mg Tablet 80 MG PO (21:56)
[2022-12-27 22:02] LABS: Glucose Point of Care 227 mg/dL (70-110)
[2022-12-28] VITALS (46 sets, daily range): BP systolic 86–159; BP diastolic 55–115; PULSE 56–99; RESP 14–24; O2SAT 84–100
[2022-12-28] MEDS: vancomycin 1,250 MG/250 ML PIGGYBACK 250 MG IV ×2 (01:27→12:03)
[2022-12-28] MEDS: propofol 1,000 MG/100 ML INJ 8.71 MG IV ×2 (03:59→13:14)
[2022-12-28 07:16] LABS: Glucose Point of Care 200 mg/dL (70-110)
[2022-12-28] MEDS: insulin lispro 100 unit/1 mL SUBCUT ×2 (07:26→11:41)
[2022-12-28] MEDS: OLANZapine 5 mg ODT 2.5 MG PO (08:52)
[2022-12-28] MEDS: fluoxetine 10 mg Capsule PO (08:53)
[2022-12-28] MEDS: nicotine 21 mg Patch 1 PATCH TRANSDERMA (08:53)
[2022-12-28] MEDS: nystatin 100,000 unit/mL UDC 5 mL 500000 UNIT PO ×2 (08:55→12:04)
[2022-12-28 11:20] LABS: Glucose Point of Care 212 mg/dL (70-110)
--- NOTE | 2022-12-28 13:50 | PC.NURSE ---
contacted DFS concerning hiram in facility and at this time aviation project engineer related that it is not in her best intrest to see her grandmother at this time and is not allowed any contact. family here notified that hiram would not be visiting
--- NOTE | 2022-12-28 15:34 | P.PN_ITS ---
Subjective Subjective: Patient has been made comfort care. Medications: Reviewed: Yes Medication Review Details: Generic Name Dose Route Start Last Admin Trade Name Park PRN Reason Stop Dose Admin Aspirin 81 mg 12/22/22 11:15 12/25/22 08:03 Aspirin 81 Mg Ch ew Tablet PEG-TUBE 81 mg DAILY EDENILSON Administration Atorvastatin Calci um 80 mg 12/19/22 21:00 12/27/22 21:56 Atorvastatin 40 Mg Tablet PO 80 mg BEDTIME EDENILSON Administration Clopidogrel Bisulf ate 75 mg 12/20/22 09:00 12/25/22 08:04 Clopidogrel 75 M g Tablet PO 75 mg DAILY EDENILSON Administration Fluoxetine HCl 10 mg 12/22/22 09:00 12/28/22 08:53 Fluoxetine 10 Mg Capsule PO 10 mg DAILY EDENILSON Administration Propofol 1,000 mg in 100 m ls @ 0 mls/hr 12/18/22 14:45 12/28/22 13:14 Diprivan IV 20 mcg/kg/min .Q0M EDENILSON 8.71 mls/hr Administration Protocol Per Protocol Norepinephrine Bit artrate 4 mg 254 mls @ 0 mls/h r 12/19/22 02:00 12/28/22 07:26 / Dextrose IV 6 mcg/min .Q0M EDENILSON 22.86 mls/hr Administration Protocol Per Protocol Dexmedetomidine HC l 400 mcg/ 104 mls @ 0 mls/h r 12/23/22 17:45 12/27/22 06:30 Sodium Chloride IV 0 mcg/kg/hr .Q0M EDENILSON 0 mls/hr Titration Protocol Per Protocol Vancomycin/PEG/NAD A/Lysine/Water 1,250 mg in 250 m ls @ 250 mls/hr 12/24/22 01:00 12/28/22 13:28 Vancocin IV Infused Q12H EDENILSON Infusion Fentanyl 2,500 mcg / Sodium 250 mls @ 0 mls/h r 12/25/22 20:45 12/27/22 23:00 Chloride IV 75 mcg/hr .Q0M EDENILSON 7.5 mls/hr Titration Protocol Per Protocol Insulin Human Lisp ro 0 unit 12/19/22 18:00 12/28/22 11:41 Insulin Lispro 1 00 Unit/1 Ml SUBCUT 4 unit WM&BEDTIME EDENILSON Administration Protocol Lactulose 20 gm 12/21/22 22:29 12/22/22 17:02 Lactulose Oral L iq 20 Gm/30 Ml Udc PO 20 gm Q1H PRN Administration to induce Bowel M ovement Nicotine 1 patch 12/20/22 09:00 12/28/22 08:53 Nicotine 21 Mg P atch TRANSDERMA 1 patch DAILY EDENILSON Administration Nystatin 500,000 unit 12/21/22 17:00 12/28/22 12:04 Nystatin 100,000 Unit/Ml Udc 5 Ml PO 500,000 unit QID EDENILSON Administration Olanzapine 2.5 mg 12/24/22 09:00 12/28/22 08:52 Olanzapine 5 Mg Odt PO 2.5 mg BID EDENILSON Administration Pantoprazole Sodiu m 40 mg 12/18/22 21:22 12/27/22 21:55 Pantoprazole 40 Mg Sdv IVP 40 mg Q24H EDENILSON Administration Rifaximin 550 mg 12/19/22 18:00 12/28/22 08:53 Rifaximin 550 Mg Tablet NG-TUBE 550 mg BID EDENILSON Administration Protocol Trazodone HCl 100 mg 12/21/22 21:00 12/27/22 21:56 Trazodone 100 Mg Tablet PO 100 mg BEDTIME EDENILSON Administration Vitals/I&O/Wt Last Vital Signs Temp 98.1 F 12/27/22 18:00 Pulse 62 12/28/22 15:00 Resp 16 12/28/22 15:00 BP 96/57 12/28/22 13:00 Pulse Ox 94 12/28/22 14:00 O2 Del Method Mechanical Ventilation 12/27/22 21:05 O2 Flow Rate 2 12/18/22 13:58 FiO2 30 12/28/22 14:00 12/28/22 12/28/22 12/28/22 06:59 14:59 22:59 Intake Total 2380.333 / 3076.192 330.568 / 330.568 Output Total 400 / 1200 300 / 300 Balance 1980.333 / 1876.192 30.568 / 30.568 Weight last 48 hrs Weight 94.483 kg Weight 90.991 kg Physical Exam Narrative: Intubated sedated on mechanical ventilation HENMT: COMMON NORMALS: normocephalic and atraumatic HEAD & SCALP: normocephalic and atraumatic Resp: EFFORT & INSPECTION: Yes symmetric chest movement OTHER: Diminished air entry bilaterally. Cardio: COMMON NORMALS: regular rate, regular rhythm, S1 normal heart sound present, S2 normal heart sound present, No gallops present (Cardio), No murmurs present (Cardio), No rub (Cardio) and Peripheral pulses 2+ throughout RATE: regular rate RHYTHM: regular rhythm HEART SOUNDS: S1 normal heart sound present and S2 normal heart sound present PERIPHERAL PULSES: Peripheral pulses 2+ throughout GI: COMMON NORMALS: Normal to inspection, nondistended, normoactive bowel sounds present, Soft to palpation, non-tender, No hepatosplenomegaly present and no masses AUSCULTATION: Yes normoactive bowel sounds PALPATION: Yes Soft to palpation and Yes No hepatosplenomegaly present RECTAL EXAM: deferred Extremity: COMMON NORMALS: no clubbing, cyanosis or edema and no pedal edema Urinary Catheter Management: Soriano: Cath Placed During This Visit: no Reason for Continuing Indwelling Catheter: Accurate Measurement of Urinary Output in Critically Ill Patients Data 12/27/22 05:17 12/27/22 05:17 A&P Assessment and plan (1) Altered mental status: Patient was brought to the emergency room in an altered mental status This is likely multifactorial ,with acute delirium from hepatic encephalopathy and underlying dementia Her ammonia level is at 82---> 148--> 112 lactulose frequency increased, with rectal tube in place , loose BM > 1L Continue rifaximin 550mg BID started tube feeds TSH is currently normal at 3.87 CT head with moderate diffuse white matter changes likely reflecting chronic microvascular ischemic changes. Mild diffuse ventricular dilatation similar to prior exams with a chronic communicating hydrocephalus. Resumed her doses of trazodone and fluoxetine, added Zyprexa She does not consume alcohol Patient was intubated on admission due to acute delirium, she has failed weaning trials due to persisting delirium Will additionally evaluate with MRI brain No fever during course of admission (2) Acute non-ST elevation myocardial infarction (NSTEMI): Patient had been having on and off chest pain over the past month and was complaining of chest pain as recently as prior to being found down. Troponin trend 6--> 81--> 224 with a delta of 75 at 2 hours and 200 at 6 hours. Echocardiogram showed a normal LVEF of 59%, mild to moderate concentric LVH without regional wall motion abnormalities Grade 1 diastolic dysfunction and mildly thickened aortic and mitral valves. EF has improved from 40% to 59% currently. Patient has a past medical history of CAD Cardiology consult appreciated Ideally would like patient to proceed to [facility], however her low platelets and unclear baseline mentation and persisting delirium certainly remain a concern. Failed weaning trial on 12/21 and again today due to agitation. Continue ASA 75mg AL daily, plavix 75mg daily, atorvastatin 80mg daily s/p heparin infusion for initial 48 hrs. (3) Thrombocytopenia: Chronic, case discussed with her outpatient syrup machine laborer Per Dr. Louis's recommendation, sent peripheral smear to evaluate for giant platelets which would be suggestive of splenic sequestration. No giant platelets were seen on the peripheral smear per pathologist. No signs of splenic sequestration per review of peripheral smear. 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 Patient will need bone marrow biopsy for definitive diagnosis Recommended that for now transfuse patient to keep a platelet count closer to 70,000 during the acute phase and while undergoing cardiac management. Bone marrow biopsy deferred to outpatient. For possibility of ITP, recommended high-dose steroids dexamethasone 40 mg daily for 96 hours ---> completed without any significant benefit. Platelet improved to 70K today after 2 units platelt transfusion on 12/21 Discussed extensively the risk of potential bleeding with antiplatelet agents in the setting of thrombocytopenia with her sister Shreya stephens. Her sister acknowledges understanding of Luh's complicated medical history and currently complicated medical decision making and states that she would like to prioritize the heart understanding all risks of potential bleeding. (4) Acidosis, lactic: Now resolved (5) Hypokalemia: Resolved (6) Hypomagnesemia: (7) Cirrhosis of liver: Secondary to steatohepatitis vs autoimmune hepatitis Recently established with malt specifications control assistant as outpatient Qualifiers: Hepatic cirrhosis type: other cirrhosis Qualified Code(s): K74.69 - Other cirrhosis of liver (8) Nicotine dependence, cigarettes, with unspecified nicotine-induced disorders: start nicotine patch. (9) Persistent cognitive impairment: Likely related to known dementia (10) Cerebellar atrophy: (11) CVA (cerebrovascular accident due to intracerebral hemorrhage): Hold aspirin Plavix. (12) Comfort measures only status: Plan Infectious evaluation: Low probability as primary cause CT chest B/L atelactasis vs infiltrate- would not explain degree of symptoms currently Blood cx negative to date no acute abdominal pathology known liver cirrhosis, enlarged spleen, perihepatic ascites Initially blood cultures were reported as positive for gram-positive bacilli, p er confirmation with lab today, this was likely reported on the wrong patient. Patient's blood cultures are currently negative to date s/p cefepime and vancomycin empirically 12/18-12/21 PUD prophylaxis: Protonix 40 mg IV daily DVT prophylaxis: Contraindicated given falling platelets Full code All updates in patient's critical illness discussed with her sister Shreya Stephens. Multiple discussions regarding GOC were done with patient's sister Shreya. Initially had discussed high risk extubation today while maintaining Precedex infusion and sister was agreeable for the same. Discussed with her the limitations with using precedex in the setting of bradycardia and the fact that if we are unable to control delirium patient may likely need re intubation. All discussions were being done with sister as her son did not answer his phone and it was reported that patient and her son have not been on good terms and he is not involved in her care though they live together. Today, Ms. Cash updated us that patient has a daughter Nichole Taylor in [place] ([phone]) and another sister Justine who is a nurse ([phone]) who would be involved in her decision making. I spoke with Nichole who was unaware of her mother's other chronic comorbidities, would like some time to establish goals of care and future plan. I reached out to Justine per family's request- got voicemail- left message requesting callback. In the interim, patient currently placed back on Fentanyl and precedex infusion and back on the ventilator for tonight due to increased agitation. Attestations Medical Necessity Statement*: Currently on comfort care measures Coding Level of Care Code Acute Code for [facility] Diagnoses Altered mental status R41.82 Acute non-ST elevation myocardial infarction (NSTEMI) I21.4 Thrombocytopenia D69.6 Acidosis, lactic E87.20 Hypokalemia E87.6 Hypomagnesemia E83.42 Cirrhosis of liver K74.69 Hepatic cirrhosis type: other cirrhosis Nicotine dependence, cigarettes, with unspecified nicotine-induced disorders F17.219 Persistent cognitive impairment R41.89 Cerebellar atrophy G31.9 CVA (cerebrovascular accident due to intracerebral hemorrhage) I61.9 Comfort measures only status Z51.5
--- NOTE | 2022-12-28 16:53 | PC.NURSE ---
dr Bates here with family progressing to comfort care at this time... weaned off medication for extubation
[2022-12-28] MEDS: morphine 4 mg/mL SDV 1 mL IVP ×3 (17:10→19:16)
[2022-12-28] MEDS: LORazepam 2 mg/mL INJ 1 mL IVP (23:06)
[2022-12-29] VITALS (15 sets, daily range): BP systolic 108–139; BP diastolic 62–75; PULSE 71–90; RESP 15–25; TEMP 37.1; O2SAT 82–90; BMI 35.6
--- NOTE | 2022-12-29 13:06 | PC.SOCIAL ---
Imm update Imm updated with family at bedside. Copy of page 2 provided. Family verbalized understanding. copy in chart initialed, dated and timed.
[2022-12-29] MEDS: LORazepam 2 mg/mL INJ 1 mL IVP (18:19)
--- NOTE | 2022-12-29 18:45 | PM.PN ---
Subjective Subjective: Given no improvement in her overall mental status, she was extubated yesterday, and it was decided to pursue comfort care given her overall poor prognosis and underlying comorbid condition, postextubation She continues to be extremely delirious, with no meaningful mentation, she is following no commands. though her vitals have been stable for most part, family was given the option today to continue with optimal medical management, and continue to monitor her mentation, in case of no improvement, in next few days, they can pursue PEG tube placement to meet the nutritional goals, and appropriate discharge planning can be done, Family has expressed their views that the patient never wanted to have a PEG tube placed, and hence for now they want to continue with comfort care measures. At any given point if they decide anything otherwise they will let us know. Medications: Reviewed: Yes Medication Review Details: Generic Name Dose Route Start Last Admin Trade Name Freq PRN Reason Stop Dose Admin Fentanyl 2,500 mcg / Sodium 250 mls @ 0 mls/h r 12/25/22 20:45 12/28/22 18:13 Chloride IV Infused .Q0M EDENILSON Titration Protocol Per Protocol Lorazepam 1 - 2 mg 12/28/22 15:32 12/29/22 18:19 Lorazepam 2 Mg/M l Inj 1 Ml IVP 1 mg Q8H PRN Administration Anxiety, Agitatio n or Restless Morphine Sulfate 2 - 10 mg 12/28/22 15:32 12/28/22 19:16 Morphine 4 Mg/Ml Sdv 1 Ml IVP 4 mg Q15M PRN Administration Moderate To Sever e Pain or SOB Vitals/I&O/Wt Last Vital Signs Temp 98.8 F 12/29/22 15:53 Pulse 88 12/29/22 15:53 Resp 21 H 12/29/22 15:53 BP 139/75 12/29/22 15:53 Pulse Ox 90 12/29/22 15:53 O2 Del Method Nasal Cannula 12/29/22 15:53 O2 Flow Rate 2 12/18/22 13:58 FiO2 30 12/28/22 16:00 12/29/22 12/29/22 12/29/22 06:59 14:59 22:59 Output Total 250 / 900 Balance -250 / -192.500 Weight last 48 hrs Weight 91.314 kg Weight 94.483 kg Physical Exam Narrative: Not needed on comfort care Urinary Catheter Management: Soriano: Cath Placed During This Visit: no Reason for Continuing Indwelling Catheter: Hospice/Comfort/Palliative Care Data 12/27/22 05:17 12/27/22 05:17 A&P Assessment and plan (1) Altered mental status: Patient was brought to the emergency room in an altered mental status This is likely multifactorial ,with acute delirium from hepatic encephalopathy and underlying dementia Her ammonia level is at 82---> 148--> 112 lactulose frequency increased, with rectal tube in place , loose BM > 1L Continue rifaximin 550mg BID started tube feeds TSH is currently normal at 3.87 CT head with moderate diffuse white matter changes likely reflecting chronic microvascular ischemic changes. Mild diffuse ventricular dilatation similar to prior exams with a chronic communicating hydrocephalus. Resumed her doses of trazodone and fluoxetine, added Zyprexa She does not consume alcohol Patient was intubated on admission due to acute delirium, she has failed weaning trials due to persisting delirium Will additionally evaluate with MRI brain No fever during course of admission (2) Acute non-ST elevation myocardial infarction (NSTEMI): Patient had been having on and off chest pain over the past month and was complaining of chest pain as recently as prior to being found down. Troponin trend 6--> 81--> 224 with a delta of 75 at 2 hours and 200 at 6 hours. Echocardiogram showed a normal LVEF of 59%, mild to moderate concentric LVH without regional wall motion abnormalities Grade 1 diastolic dysfunction and mildly thickened aortic and mitral valves. EF has improved from 40% to 59% currently. Patient has a past medical history of CAD Cardiology consult appreciated Ideally would like patient to proceed to Software Support Engineer, however her low platelets and unclear baseline mentation and persisting delirium certainly remain a concern. Failed weaning trial on 12/21 and again today due to agitation. Continue ASA 75mg RI daily, plavix 75mg daily, atorvastatin 80mg daily s/p heparin infusion for initial 48 hrs. (3) Thrombocytopenia: Chronic, case discussed with her outpatient human resource consultant Per Dr. Louis's recommendation, sent peripheral smear to evaluate for giant platelets which would be suggestive of splenic sequestration. No giant platelets were seen on the peripheral smear per pathologist. No signs of splenic sequestration per review of peripheral smear. 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 Patient will need bone marrow biopsy for definitive diagnosis Recommended that for now transfuse patient to keep a platelet count closer to 70,000 during the acute phase and while undergoing cardiac management. Bone marrow biopsy deferred to outpatient. For possibility of ITP, recommended high-dose steroids dexamethasone 40 mg daily for 96 hours ---> completed without any significant benefit. Platelet improved to 70K today after 2 units platelt transfusion on 12/21 Discussed extensively the risk of potential bleeding with antiplatelet agents in the setting of thrombocytopenia with her sister Shreya stephens. Her sister acknowledges understanding of Luh's complicated medical history and currently complicated medical decision making and states that she would like to prioritize the heart understanding all risks of potential bleeding. (4) Acidosis, lactic: Now resolved (5) Hypokalemia: Resolved (6) Hypomagnesemia: (7) Cirrhosis of liver: Secondary to steatohepatitis vs autoimmune hepatitis Recently established with beer maker as outpatient Qualifiers: Hepatic cirrhosis type: other cirrhosis Qualified Code(s): K74.69 - Other cirrhosis of liver (8) Nicotine dependence, cigarettes, with unspecified nicotine-induced disorders: start nicotine patch. (9) Persistent cognitive impairment: Likely related to known dementia (10) Cerebellar atrophy: (11) CVA (cerebrovascular accident due to intracerebral hemorrhage): Hold aspirin Plavix. (12) Comfort measures only status: Plan Infectious evaluation: Low probability as primary cause CT chest B/L atelactasis vs infiltrate- would not explain degree of symptoms currently Blood cx negative to date no acute abdominal pathology known liver cirrhosis, enlarged spleen, perihepatic ascites Initially blood cultures were reported as positive for gram-positive bacilli, per confirmation with lab today, this was likely reported on the wrong patient. Patient's blood cultures are currently negative to date s/p cefepime and vancomycin empirically 12/18-12/21 PUD prophylaxis: Protonix 40 mg IV daily DVT prophylaxis: Contraindicated given falling platelets Full code Attestations Medical Necessity Statement*: Needs to be in hospital for comfort care measures. Coding Level of Care Code Acute Code for [facility] Diagnoses Altered mental status R41.82 Acute non-ST elevation myocardial infarction (NSTEMI) I21.4 Thrombocytopenia D69.6 Acidosis, lactic E87.20 Hypokalemia E87.6 Hypomagnesemia E83.42 Cirrhosis of liver K74.69 Hepatic cirrhosis type: other cirrhosis Nicotine dependence, cigarettes, with unspecified nicotine-induced disorders F17.219 Persistent cognitive impairment R41.89 Cerebellar atrophy G31.9 CVA (cerebrovascular accident due to intracerebral hemorrhage) I61.9 Comfort measures only status Z51.5
[2022-12-29] MEDS: morphine 10 mg/0.5 mL oral liq UD SUBLINGUAL (23:14)
[2022-12-30] VITALS: PULSE 50; RESP 25; TEMP 37; O2SAT 90
[2022-12-30] MEDS: LORazepam 2 mg/mL INJ 1 mL 1 MG IVP (00:15)
[2022-12-30 04:00] VITALS: RESP 25; O2SAT 90
[2022-12-30 07:40] VITALS: BP 137/70; PULSE 74; RESP 22; TEMP 36.6
[2022-12-30 11:23] VITALS: O2SAT 90
[2022-12-30 12:42] VITALS: RESP 22
[2022-12-30] MEDS: morphine 4 mg/mL SDV 1 mL IVP (12:42)
[2022-12-30] MEDS: LORazepam 2 mg/mL INJ 1 mL IVP (13:05)
--- NOTE | 2022-12-30 15:44 | P.PN_ITS ---
Subjective Medications: Reviewed: Yes Medication Review Details: Generic Name Dose Route Start Last Admin Trade Name Freq PRN Reason Stop Dose Admin Lorazepam 1 - 2 mg 12/28/22 15:32 12/30/22 13:05 Lorazepam 2 Mg/M l Inj 1 Ml IVP 1 mg Q8H PRN Administration Anxiety, Agitatio n or Restless Morphine Sulfate 2 - 10 mg 12/28/22 15:32 12/30/22 12:42 Morphine 4 Mg/Ml Sdv 1 Ml IVP 2 mg Q15M PRN Administration Moderate To Sever e Pain or SOB Morphine Sulfate 2 - 10 mg 12/28/22 15:32 12/29/22 23:14 Morphine 10 Mg/0 .5 Ml Oral Liq Ud SUBLINGUAL 5 mg Q2H PRN Administration Moderate To Sever e Pain or SOB Vitals/I&O/Wt Last Vital Signs Temp 97.9 F 12/30/22 07:40 Pulse 74 12/30/22 07:40 Resp 22 H 12/30/22 12:42 BP 137/70 12/30/22 07:40 Pulse Ox 90 12/30/22 11:23 O2 Del Method Nasal Cannula 12/30/22 11:23 O2 Flow Rate 2 12/30/22 11:23 FiO2 30 12/28/22 16:00 12/30/22 12/30/22 12/30/22 06:59 14:59 22:59 Output Total 850 / 850 Balance -850 / -850 Weight last 48 hrs Weight 90.492 kg Weight 91.314 kg Physical Exam Narrative: Not needed on comfort care HENMT: COMMON NORMALS: normocephalic and atraumatic HEAD & SCALP: normocephalic and atraumatic Resp: EFFORT & INSPECTION: Yes symmetric chest movement OTHER: Diminished air entry bilaterally. Cardio: COMMON NORMALS: regular rate, regular rhythm, S1 normal heart sound present, S2 normal heart sound present, No gallops present (Cardio), No murmurs present (Cardio), No rub (Cardio) and Peripheral pulses 2+ throughout RATE: regular rate RHYTHM: regular rhythm HEART SOUNDS: S1 normal heart sound present and S2 normal heart sound present PERIPHERAL PULSES: Peripheral pulses 2+ throughout GI: COMMON NORMALS: Normal to inspection, nondistended, normoactive bowel sounds present, Soft to palpation, non-tender, No hepatosplenomegaly present and no masses AUSCULTATION: Yes normoactive bowel sounds PALPATION: Yes Soft to palpation and Yes No hepatosplenomegaly present RECTAL EXAM: deferred Extremity: COMMON NORMALS: no clubbing, cyanosis or edema and no pedal edema Urinary Catheter Management: Soriano: Cath Placed During This Visit: no Reason for Continuing Indwelling Catheter: Acute Urinary Retention or Obstruction Data 12/27/22 05:17 12/27/22 05:17 A&P Assessment and plan (1) Altered mental status: Patient was brought to the emergency room in an altered mental status This is likely multifactorial ,with acute delirium from hepatic encephalopathy and underlying dementia Her ammonia level is at 82---> 148--> 112 lactulose frequency increased, with rectal tube in place , loose BM > 1L Continue rifaximin 550mg BID started tube feeds TSH is currently normal at 3.87 CT head with moderate diffuse white matter changes likely reflecting chronic microvascular ischemic changes. Mild diffuse ventricular dilatation similar to prior exams with a chronic communicating hydrocephalus. Resumed her doses of trazodone and fluoxetine, added Zyprexa She does not consume alcohol Patient was intubated on admission due to acute delirium, she has failed weaning trials due to persisting delirium Will additionally evaluate with MRI brain No fever during course of admission (2) Acute non-ST elevation myocardial infarction (NSTEMI): Patient had been having on and off chest pain over the past month and was complaining of chest pain as recently as prior to being found down. Troponin trend 6--> 81--> 224 with a delta of 75 at 2 hours and 200 at 6 hours. Echocardiogram showed a normal LVEF of 59%, mild to moderate concentric LVH without regional wall motion abnormalities Grade 1 diastolic dysfunction and mildly thickened aortic and mitral valves. EF has improved from 40% to 59% currently. Patient has a past medical history of CAD Cardiology consult appreciated Ideally would like patient to proceed to [employer], however her low platelets and unclear baseline mentation and persisting delirium certainly remain a concern. Failed weaning trial on 12/21 and again today due to agitation. Continue ASA 75mg RI daily, plavix 75mg daily, atorvastatin 80mg daily s/p heparin infusion for initial 48 hrs. (3) Thrombocytopenia: Chronic, case discussed with her outpatient gambling monitor Per Dr. Louis's recommendation, sent peripheral smear to evaluate for giant platelets which would be suggestive of splenic sequestration. No giant pl atelets were seen on the peripheral smear per pathologist. No signs of splenic sequestration per review of peripheral smear. 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 Patient will need bone marrow biopsy for definitive diagnosis Recommended that for now transfuse patient to keep a platelet count closer to 70,000 during the acute phase and while undergoing cardiac management. Bone marrow biopsy deferred to outpatient. For possibility of ITP, recommended high-dose steroids dexamethasone 40 mg daily for 96 hours ---> completed without any significant benefit. Platelet improved to 70K today after 2 units platelt transfusion on 12/21 Discussed extensively the risk of potential bleeding with antiplatelet agents in the setting of thrombocytopenia with her sister Shreya stephens. Her sister acknowledges understanding of Luh's complicated medical history and currently complicated medical decision making and states that she would like to prioritize the heart understanding all risks of potential bleeding. (4) Acidosis, lactic: Now resolved (5) Hypokalemia: Resolved (6) Hypomagnesemia: (7) Cirrhosis of liver: Secondary to steatohepatitis vs autoimmune hepatitis Recently established with dry cleaning attendant as outpatient Qualifiers: Hepatic cirrhosis type: other cirrhosis Qualified Code(s): K74.69 - Other cirrhosis of liver (8) Nicotine dependence, cigarettes, with unspecified nicotine-induced disorders: start nicotine patch. (9) Persistent cognitive impairment: Likely related to known dementia (10) Cerebellar atrophy: (11) CVA (cerebrovascular accident due to intracerebral hemorrhage): Hold aspirin Plavix. (12) Comfort measures only status: Plan Infectious evaluation: Low probability as primary cause CT chest B/L atelactasis vs infiltrate- would not explain degree of symptoms currently Blood cx negative to date no acute abdominal pathology known liver cirrhosis, enlarged spleen, perihepatic ascites Initially blood cultures were reported as positive for gram-positive bacilli, per confirmation with lab today, this was likely reported on the wrong patient. Patient's blood cultures are currently negative to date s/p cefepime and vancomycin empirically 12/18-12/21 PUD prophylaxis: Protonix 40 mg IV daily DVT prophylaxis: Contraindicated given falling platelets Full code Coding Level of Care Code Acute Code for [facility] Fwd Diagnoses Altered mental status R41.82 Acute non-ST elevation myocardial infarction (NSTEMI) I21.4 Thrombocytopenia D69.6 Acidosis, lactic E87.20 Hypokalemia E87.6 Hypomagnesemia E83.42 Cirrhosis of liver K74.69 Hepatic cirrhosis type: other cirrhosis Nicotine dependence, cigarettes, with unspecified nicotine-induced disorders F17.219 Persistent cognitive impairment R41.89 Cerebellar atrophy G31.9 CVA (cerebrovascular accident due to intracerebral hemorrhage) I61.9 Comfort measures only status Z51.5
--- NOTE | 2022-12-30 18:15 | P.PN_ITS ---
Subjective Subjective: Currently on comfort care measures. Medications: Reviewed: Yes Vitals/I&O/Wt Last Vital Signs Temp 97.9 F 12/30/22 07:40 Pulse 74 12/30/22 07:40 Resp 22 H 12/30/22 12:42 BP 137/70 12/30/22 07:40 Pulse Ox 90 12/30/22 11:23 O2 Del Method Nasal Cannula 12/30/22 11:23 O2 Flow Rate 2 12/30/22 11:23 FiO2 30 12/28/22 16:00 12/30/22 12/30/22 12/30/22 06:59 14:59 22:59 Output Total 850 / 850 600 / 600 Balance -850 / -850 -600 / -600 Weight last 48 hrs Weight 90.492 kg Weight 91.314 kg Physical Exam Narrative: Not needed on comfort care Urinary Catheter Management: Soriano: Cath Placed During This Visit: no Reason for Continuing Indwelling Catheter: Hospice/Comfort/Palliative Care Data 12/27/22 05:17 12/27/22 05:17 A&P Assessment and plan (1) Altered mental status: Patient was brought to the emergency room in an altered mental status This is likely multifactorial ,with? acute delirium from hepatic encephalopathy and underlying dementia Her ammonia level is at 82---> 148--> 112 lactulose frequency increased, with rectal tube in place , loose BM > 1L Continue rifaximin 550mg BID started tube feeds TSH is currently normal at 3.87 CT head with moderate diffuse white matter changes likely reflecting chronic microvascular ischemic changes.? Mild diffuse ventricular dilatation similar to prior exams with a chronic communicating hydrocephalus. Resumed her doses of trazodone and fluoxetine, added Zyprexa She does not consume alcohol Patient was intubated on admission due to acute delirium, she has failed weaning trials due to persisting delirium Will additionally evaluate with MRI brain No fever during course of admission (2) Acute non-ST elevation myocardial infarction (NSTEMI): Patient had been having on and off chest pain over the past month and was complaining of chest pain as recently as? prior to being found down. Troponin trend 6--> 81--> 224 with a delta of 75 at 2 hours and 200 at 6 hours. Echocardiogram showed a normal LVEF of 59%, mild to moderate concentric LVH without regional wall motion abnormalities Grade 1 diastolic dysfunction and mildly thickened aortic and mitral valves. EF has improved from 40% to 59% currently. Patient has a past medical history of CAD Cardiology consult appreciated Ideally would like patient to proceed to [employer], however her low platelets and unclear baseline mentation and persisting delirium certainly remain a concern. Failed weaning trial on 12/21 and again today due to agitation.? Continue ASA 75mg [place] daily, plavix 75mg daily, atorvastatin 80mg daily s/p heparin infusion for initial 48 hrs. (3) Thrombocytopenia: Chronic, case discussed with her outpatient business analysis professional Per Dr. Louis's recommendation, sent peripheral smear to evaluate for giant platelets which would be suggestive of splenic sequestration.? No giant platelets were seen on the peripheral smear per pathologist. No signs of splenic sequestration per review of peripheral smear. 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 Patient will need bone marrow biopsy for definitive diagnosis Recommended that for now transfuse patient to keep a platelet count closer to 70,000 during the acute phase and while undergoing cardiac management.? Bone marrow biopsy deferred to outpatient. For possibility of ITP, recommended high-dose steroids dexamethasone 40 mg daily for 96 hours ---> completed without any significant benefit. Platelet improved to 70K today after 2 units platelt transfusion on 12/21 Discussed extensively the risk of potential bleeding with antiplatelet agents in the setting of thrombocytopenia with her sister Shreya stephens.? Her sister acknowledges understanding of Luh's complicated medical history and currently complicated medical decision making and states that she would like to prioritize the heart understanding all risks of potential bleeding. (4) Acidosis, lactic: Now resolved (5) Hypokalemia: Resolved (6) Hypomagnesemia: (7) Cirrhosis of liver: Secondary to steatohepatitis vs autoimmune hepatitis Recently established with regional medical director as outpatient Qualifiers: Hepatic cirrhosis type: other cirrhosis Qualified Code(s): K74.69 - Other cirrhosis of liver (8) Nicotine dependence, cigarettes, with unspecified nicotine-induced disorders: start nicotine patch. (9) Persistent cognitive impairment: Likely related to known dementia (10) Cerebellar atrophy: (11) CVA (cerebrovascular accident due to intracerebral hemorrhage): Hold aspirin Plavix. (12) Comfort measures only status: Plan 67-year-old female with past medical history of coronary artery disease s/p PCI, end-stage liver disease, COPD, heart failure with preserved ejection fraction, hypothyroidism diabetes, initially brought in for the management of altered mental status, she was extremely combative, agitated, and was not responding to medications to calm her down on arrival and hence had to be was intubated on admission, had a complicated hospital course during this hospital stay she was managed for altered mental status multifactorial: Likely secondary to hepatic encephalopathy, dementia, on arrival her ammonia was high she was started on lactulose, rifaximin, admission CT head without contrast: Showed: moderate diffuse white matter changes likely reflecting chronic microvascular ischemic changes.?Mild diffuse ventricular dilatation similar to prior exams with a ch ronic communicating hydrocephalus. TSH was normal, serum ammonia had improved significantly.During the hospital stay she was also managed for non-ST elevated AK, initially she was on ACS protocol,Troponin trend 6--> 81--> 224 with a delta of 75 at 2 hours and 200 at 6 hours. Echocardiogram showed a normal LVEF of 59%, mild to moderate concentric LVH without regional wall motion abnormalities,Grade 1 diastolic dysfunction and mildly thickened aortic and mitral valves.EF has improved from 40% to 59% currently. Later ACS protocol was stopped, cardiology was on board, given her persistent, altered mental status, no further acute intervention was done, she also has history of chronic thrombocytopenia,ase discussed with her outpatient business analysis professional Per Dr. Louis's recommendation, sent peripheral smear to evaluate for giant platelets which would be suggestive of splenic sequestration.? No giant platelets were seen on the peripheral smear per pathologist.No signs of splenic sequestration per review of peripheral smear. 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 Patient will need bone marrow biopsy for definitive diagnosis Recommended that for now transfuse patient to keep a platelet count closer to 70,000 during the acute phase and while undergoing cardiac management.? Bone marrow biopsy deferred to outpatient. For possibility of ITP, recommended high-dose steroids dexamethasone 40 mg daily for 96 hours ---> completed without any significant benefit. She did receive platelet transfusion during the hospital stay 2 units, platelet counts were monitored, she also has history of liver cirrhosis, was to see hepatology as outpatient, given her continued altered mental status, and agitation, repeat CT head without contrast was done during the hospital stay, which showed acute hemorrhagic stroke, aspirin and Plavix was discontinued. During the hospital stay patient was also on broad-spectrum antibiotics, for any possible infectious etiology, blood cultures were negative, sputum culture was growing MRSA, she was on vancomycin.given the fact that the patient was not responding appropriately in terms of her altered mental status, in spite of appropriate medical care, family decided to make patient, comfort care, prior to making her comfort, family was given the option that, we can continue with, optimal medical manage ment for some more time, and if needed, tube be an option, family agreed for comfort care measures only she was extubated, family told that, patient was, never interested in getting, any, PEG tube placement, or any other, intervention, in case when she was not responding appropriately in terms of me dical condition. Currently patient is on comfort care measures, social workers have been asked to facilitate, discharge of the patient to hospice, in a custodial, if it is needed. Attestations Medical Necessity Statement*: In hospital for comfort care Coding Level of Care Code Acute Code for [facility] Fwd Diagnoses Altered mental status R41.82 Acute non-ST elevation myocardial infarction (NSTEMI) I21.4 Thrombocytopenia D69.6 Acidosis, lactic E87.20 Hypokalemia E87.6 Hypomagnesemia E83.42 Cirrhosis of liver K74.69 Hepatic cirrhosis type: other cirrhosis Nicotine dependence, cigarettes, with unspecified nicotine-induced disorders F17.219 Persistent cognitive impairment R41.89 Cerebellar atrophy G31.9 CVA (cerebrovascular accident due to intracerebral hemorrhage) I61.9 Comfort measures only status Z51.5
--- NOTE | 2022-12-30 18:52 | PC.NURSE ---
No meaningful changes or activities noted this shift. Resting comfortably. Sisters asked questioned her re: pain after bath, pt mumbled yes, but nothing noted for this nursed.
[2022-12-30 19:25] VITALS: BP 138/86; PULSE 67; RESP 18; TEMP 36.4; O2SAT 87
[2022-12-31] VITALS (7 sets, daily range): BP systolic 95–145; BP diastolic 59–88; PULSE 56–83; RESP 14–28; TEMP 36.4–36.8; O2SAT 89–94
[2022-12-31] MEDS: morphine 4 mg/mL SDV 1 mL IVP ×4 (04:54→20:14)
--- NOTE | 2022-12-31 08:44 | PC.SOCIAL ---
IMM Updated Updated pt's family on IMM. No questions voiced. Provided family a copy. Initialed, dated, & timed copy in chart.
--- NOTE | 2022-12-31 11:58 | PC.NURSE ---
Spoke with son at length about hospice and comfort care. Also explained the signs and symptoms to look for as well as what to expect as far as care for the patient would look like in the home setting as well as the longterm setting. Son seems to be understanding. CM to follow up about choices.
[2022-12-31] MEDS: LORazepam 2 mg/mL INJ 1 mL IVP (14:52)
--- NOTE | 2022-12-31 16:12 | PM.PN ---
Subjective Subjective: Hospital course, labs appreciated. Patient made comfort measures over the weekend. Family at bedside. Medications: Reviewed: Yes Vitals/I&O/Wt Last Vital Signs Temp 98.2 F 12/31/22 08:00 Pulse 67 12/31/22 08:00 Resp 22 H 12/31/22 14:51 BP 95/59 12/31/22 08:00 Pulse Ox 89 L 12/31/22 08:00 O2 Del Method Nasal Cannula 12/31/22 07:51 O2 Flow Rate 1.5 12/31/22 07:51 FiO2 30 12/28/22 16:00 12/31/22 12/31/22 12/31/22 06:59 14:59 22:59 Output Total 250 / 1100 Balance -250 / -1100 Weight last 48 hrs Weight 90.407 kg Weight 90.492 kg Physical Exam Narrative: Deferred in setting of comfort measures status. Urinary Catheter Management: Soriano: Cath Placed During This Visit: no Reason for Continuing Indwelling Catheter: Hospice/Comfort/Palliative Care Data 12/27/22 05:17 12/27/22 05:17 A&P Assessment and plan (1) Altered mental status: Patient was brought to the emergency room in an altered mental status This is likely multifactorial ,with? acute delirium from hepatic encephalopathy and underlying dementia Her ammonia level is at 82---> 148--> 112 lactulose frequency increased, with rectal tube in place , loose BM > 1L Continue rifaximin 550mg BID started tube feeds TSH is currently normal at 3.87 CT head with moderate diffuse white matter changes likely reflecting chronic microvascular ischemic changes.? Mild diffuse ventricular dilatation similar to prior exams with a chronic communicating hydrocephalus. Resumed her doses of trazodone and fluoxetine, added Zyprexa She does not consume alcohol Patient was intubated on admission due to acute delirium, she has failed weaning trials due to persisting delirium Will additionally evaluate with MRI brain No fever during course of admission (2) Acute non-ST elevation myocardial infarction (NSTEMI): Patient had been having on and off chest pain over the past month and was complaining of chest pain as recently as? prior to being found down. Troponin trend 6--> 81--> 224 with a delta of 75 at 2 hours and 200 at 6 hours. Echocardiogram showed a normal LVEF of 59%, mild to moderate concentric LVH without regional wall motion abnormalities Grade 1 diastolic dysfunction and mildly thickened aortic and mitral valves. EF has improved from 40% to 59% currently. Patient has a past medical history of CAD Cardiology consult appreciated Ideally would like patient to proceed to [employer], however her low platelets and unclear baseline mentation and persisting delirium certainly remain a concern. Failed weaning trial on 12/21 and again today due to agitation.? Continue ASA 75mg SC daily, plavix 75mg daily, atorvastatin 80mg daily s/p heparin infusion for initial 48 hrs. (3) Thrombocytopenia: Chronic, case discussed with her outpatient climatology teacher Per Dr. Louis's recommendation, sent peripheral smear to evaluate for giant platelets which would be suggestive of splenic sequestration.? No giant platelets were seen on the peripheral smear per pathologist. No signs of splenic sequestration per review of peripheral smear. 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 Patient will need bone marrow biopsy for definitive diagnosis Recommended that for now transfuse patient to keep a platelet count closer to 70,000 during the acute phase and while undergoing cardiac management.? Bone marrow biopsy deferred to outpatient. For possibility of ITP, recommended high-dose steroids dexamethasone 40 mg daily for 96 hours ---> completed without any significant benefit. Platelet improved to 70K today after 2 units platelt transfusion on 12/21 Discussed extensively the risk of potential bleeding with antiplatelet agents in the setting of thrombocytopenia with her sister Shreya stephens.? Her sister acknowledges understanding of Luh's complicated medical history and currently complicated medical decision making and states that she would like to prioritize the heart understanding all risks of potential bleeding. (4) Acidosis, lactic: Now resolved (5) Hypokalemia: Resolved (6) Hypomagnesemia: (7) Cirrhosis of liver: Secondary to steatohepatitis vs autoimmune hepatitis Recently established with [employer] as outpatient Qualifiers: Hepatic cirrhosis type: other cirrhosis Qualified Code(s): K74.69 - Other cirrhosis of liver (8) Nicotine dependence, cigarettes, with unspecified nicotine-induced disorders: start nicotine patch. (9) Persistent cognitive impairment: Likely related to known dementia (10) Cerebellar atrophy: (11) CVA (cerebrovascular accident due to intracerebral hemorrhage): Hold aspirin Plavix. (12) Comfort measures only status: Plan 67-year-old female with past medical history of coronary artery disease s/p PCI, end-stage liver disease, COPD, heart failure with preserved ejection fraction, hypothyroidism diabetes, initially brought in for the management of altered mental status, she was extremely combative, agitated, and was not responding to medications to calm her down on arrival and hence had to be was intubated on admission, had a complicated hospital course during this hospital stay she was managed for altered mental status multifactorial: Likely secondary to hepatic encephalopathy, dementia, on arrival her ammonia was high she was started on lactulose, rifaximin, admission CT head without contrast: Showed: moderate diffuse white matter changes likely reflecting chronic microvascular ischemic changes.?Mild diffuse ventricular dilatation similar to prior exams with a chronic communicating hydrocephalus. TSH was normal, serum ammonia had improved significantly.During the hospital stay she was also managed for non-ST elevated AR, initially she was on ACS protocol,Troponin trend 6--> 81--> 224 with a delta of 75 at 2 hours and 200 at 6 hours. Echocardiogram showed a normal LVEF of 59%, mild to moderate concentric LVH without regional wall motion abnormalities,Grade 1 diastolic dysfunction and mildly thickened aortic and mitral valves.EF has improved from 40% to 59% currently. Later ACS protocol was stopped, cardiology was on board, given her persistent, altered mental status, no further acute intervention was done, she also has history of chronic thrombocytopenia,ase discussed with her outpatient climatology teacher Per Dr. Louis's recommendation, sent peripheral smear to evaluate for giant platelets which would be suggestive of splenic sequestration.? No giant platelets were seen on the peripheral smear per pathologist. No signs of splenic sequestration per review of peripheral smear. 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 Patient will need bone marrow biopsy for definitive diagnosis Recommended that for now transfuse patient to keep a platelet count closer to 70,000 during the acute phase and while undergoing cardiac management.? Bone marrow biopsy deferred to outpatient. For possibility of ITP, recommended high-dose steroids dexamethasone 40 mg daily for 96 hours ---> completed without any significant benefit. She did receive platelet transfusion during the hospital stay 2 units, platelet counts were monitored, she also has history of liver cirrhosis, was to see hepatology as outpatient, given her continued altered mental status, and agitation, repeat CT head without contrast was done during the hospital stay, which showed acute hemorrhagic stroke, aspirin and Plavix was discontinued. During the hospital stay patient was also on broad-spectrum antibiotics, for any possible infectious etiology, blood cultures were negative, sputum culture was growing MRSA, she was on vancomycin. Given the fact that the patient was not responding appropriately in terms of her altered mental status, in spite of appropriate medical care, family decided to make patient, comfort care, prior to making her comfort, family was given the option that, we can continue with, optimal medical management for some more time, and if needed, tube be an option, family agreed for comfort care measures only she was extubated, family told that, patient was, never interested in getting, any, PEG tube placement, or any other, intervention, in case when she was not responding appropriately in terms of medical condition. Currently patient is on comfort care measures, social workers have been asked to facilitate, discharge of the patient to hospice, in a fpc, if it is needed. Patient is comfort measures status only. Case management alerted for possible discharge to SNF versus home with hospice. Continue Soriano catheter. Morphine, Ativan as needed. Attestations Medical Necessity Statement*: Requires further hospitalization for hospice care while safe discharge planning is sought. Diagnoses Altered mental status R41.82 Acute non-ST elevation myocardial infarction (NSTEMI) I21.4 Thrombocytopenia D69.6 Acidosis, lactic E87.20 Hypokalemia E87.6 Hypomagnesemia E83.42 Cirrhosis of liver K74.69 Hepatic cirrhosis type: other cirrhosis Nicotine dependence, cigarettes, with unspecified nicotine-induced disorders F17.219 Persistent cognitive impairment R41.89 Cerebellar atrophy G31.9 CVA (cerebrovascular accident due to intracerebral hemorrhage) I61.9 Comfort measures only status Z51.5
[2023-01-01] MEDS: LORazepam 2 mg/mL INJ 1 mL IVP ×2 (00:12→08:08)
[2023-01-01 06:21] VITALS: RESP 17
[2023-01-01] MEDS: morphine 4 mg/mL SDV 1 mL IVP ×2 (06:21→08:08)
[2023-01-01 07:14] VITALS: BP 127/76; PULSE 73; RESP 21; TEMP 36.4
--- NOTE | 2023-01-01 09:35 | PM.DCS ---
Discharge Providers Date of Admission: 12/18/22 19:47 Date of Discharge: January 01, 2023 Attending Provider at Admission: Mohamud Verdugo DO Attending Provider at Discharge: Kenny De León MD Primary Care Provider: Sara Montenegro DO Diagnoses at Discharge Discharge Diagnosis (1) Altered mental status: Status: Acute (2) Acute non-ST elevation myocardial infarction (NSTEMI): Status: Acute (3) Thrombocytopenia: Status: Acute (4) Acidosis, lactic: Status: Acute (5) Hypokalemia: Status: Acute (6) Hypomagnesemia: Status: Acute (7) Cirrhosis of liver: Status: Chronic Qualifiers: Hepatic cirrhosis type: other cirrhosis Qualified Code(s): K74.69 - Other cirrhosis of liver (8) Nicotine dependence, cigarettes, with unspecified nicotine-induced disorders: Status: Chronic (9) Persistent cognitive impairment: Status: Acute (10) Cerebellar atrophy: Status: Acute (11) CVA (cerebrovascular accident due to intracerebral hemorrhage): Status: Acute (12) Comfort measures only status: Status: Acute Reason for Visit Reason for Visit: AMS Hospital Course Hospital Course 67-year-old female with past medical history of coronary artery disease s/p PCI, end-stage liver disease, COPD, heart failure with preserved ejection fraction, hypothyroidism diabetes, initially brought in for the management of altered mental status, she was extremely combative, agitated, and was not responding to medications to calm her down on arrival and hence had to be was intubated on admission, had a complicated hospital course during this hospital stay she was managed for altered mental status multifactorial: Likely secondary to hepatic encephalopathy, dementia, on arrival her ammonia was high she was started on lactulose, rifaximin, admission CT head without contrast: Showed: moderate diffuse white matter changes likely reflecting chronic microvascular ischemic changes.?Mild diffuse ventricular dilatation similar to prior exams with a chronic communicating hydrocephalus. TSH was normal, serum ammonia had improved significantly.During the hospital stay she was also managed for non-ST elevated [place], initially she was on ACS protocol,Troponin trend 6--> 81--> 224 with a delta of 75 at 2 hours and 200 at 6 hours. Echocardiogram showed a normal LVEF of 59%, mild to moderate concentric LVH without regional wall motion abnormalities,Grade 1 diastolic dysfunction and mildly thickened aortic and mitral valves.EF has improved from 40% to 59% currently. Later ACS protocol was stopped, cardiology was on board, given her persistent, altered mental status, no further acute intervention was done, she also has history of chronic thrombocytopenia,ase discussed with her outpatient web production designer Per Dr. Louis's recommendation, sent peripheral smear to evaluate for giant platelets which would be suggestive of splenic sequestration.? No giant platelets were seen on the peripheral smear per pathologist. No signs of splenic sequestration per review of peripheral smear. 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 Patient will need bone marrow biopsy for definitive diagnosis Recommended that for now transfuse patient to keep a platelet count closer to 70,000 during the acute phase and while undergoing cardiac management.? Bone marrow biopsy deferred to outpatient. For possibility of ITP, recommended high-dose steroids dexamethasone 40 mg daily for 96 hours ---> completed without any significant benefit. She did receive platelet transfusion during the hospital stay 2 units, platelet counts were monitored, she also has history of liver cirrhosis, was to see hepatology as outpatient, given her continued altered mental status, and agitation, repeat CT head without contrast was done during the hospital stay, which showed acute hemorrhagic stroke, aspirin and Plavix was discontinued. During the hospital stay patient was also on broad-spectrum antibiotics, for any possible infectious etiology, blood cultures were negative, sputum culture was growing MRSA, she was on vancomycin. Given the fact that the patient was not responding appropriately in terms of her altered mental status, in spite of appropriate medical care, further multiple goals of care discussions were done with family members. Family decided to make patient, comfort care, prior to making her comfort, family was given the option that, we can continue with, optimal medical management for some more time, and if needed, continued intubation be an option. Family decided about comfort measures status. As per them patient would have never wanted life-prolonging life support including mechanical ventilation prolonged, PEG tube placement or any other kind of artificial nutrition. Patient was transitioned to comfort care/hospice. Patient is being discharged to SNF with hospice and comfortable status with family at bedside. Physical Exam Narrative: Deferred in setting of comfort measures status. Urinary Catheter Management: Soriano: Cath Placed During This Visit: no Reason for Continuing Indwelling Catheter: Hospice/Comfort/Palliative Care Discharge Data Studies Completed and Pending Completed Studies During Hospitalization Category Date Time Status CT head wo con* [id number] Routine Cat Scan 12/21/22 11:[address] head wo con* [id number] Routine Cat Scan 12/25/22 17:[address] head wo con* [id number] Stat Cat Scan 12/18/22 13:[address] abdomen pelvis [CT angio chest w abd pel w Cat Scan 12/18/22 16:42 Completed con] Stat CXRP [XR chest 1V portable [id number]] AM LABS Exams 12/24/22 04:00 Completed XR chest 1V portable [id number] Routine Exams 12/18/22 20:37 Completed XR chest 1V portable [id number] Stat Exams 12/18/22 13:18 Completed XR chest 1V portable [id number] Stat Exams 12/18/22 18:02 Completed XR chest 1V portable [id number] Stat Exams 12/24/22 07:43 Completed US echo complete [CV. echo complete* [id number]] Stat Ultrasound 12/18/22 16:39 Completed Radiology Impressions Chest/Abdomen/Pelvis CT 12/18/22 16:42 IMPRESSION: 1. Negative for pulmonary embolus. 2. Bilateral dependent atelectasis versus infiltrate. 3. Endotracheal tube seen in place somewhat approaching the right mainstem bronchus could be withdrawn by 1-2 cm. 4. Coronary artery atherosclerotic calcifications. IMPRESSION: 1. Negative for acute appearing inflammatory process in the abdomen or pelvis. 2. Cirrhotic liver. 3. Perihepatic ascites. 4. Spleen enlarged to 16 cm. 5. Cholecystectomy. 6. Edematous appearing stomach and bowel, likely related to underlying liver disease. 7. Diverticulosis without diverticulitis. 8. Soriano catheter in the urinary bladder with air presumed iatrogenic. Chest X-Ray 12/24/22 07:43 IMPRESSION: Imaging findings suggestive of pulmonary congestion. Pneumonia should be excluded clinically. Head CT 12/25/22 17:56 IMPRESSION: 1. Interval focal 3.7 mm cortical hemorrhage superior/posterior right superior frontal gyrus (series 3, image 39; series 8, image 44). 2. Age appropriate supratentorial and infratentorial atrophy. 3. Moderate chronic white matter microvascular ischemic disease. ADDENDUM: 12/25/22 1010 THIS REPORT CONTAINS FINDINGS THAT MAY BE CRITICAL TO PATIENT CARE. The findings were verbally communicated by me to DR. DURGA GRAY via telephone conference at 10:08 AM CDT on 12/25/2022. The findings were acknowledged and understood. Laboratory Results WBC 13.8 10^3/uL (4.0-10.0) H 12/27/22 05:17 RBC 3.58 10^6/uL (4.1-5.3) L 12/27/22 05:17 Hgb 10.2 g/dL (11.5-15.3) L 12/27/22 05:17 Hct 31.4 % (37.0-47.0) L 12/27/22 05:17 MCV 87.7 fl (81-99) D 12/27/22 05:17 MCH 28.5 pg (28.0-34.0) 12/27/22 05:17 MCHC 32.5 g/dL (30.0-36.0) 12/27/22 05:17 RDW 15.9 % (12.1-15.1) H 12/27/22 05:17 Plt Count 50 10^3/cmm (130-400) L 12/27/22 05:17 MPV 11.6 fL (7.4-10.4) H 12/27/22 05:17 Neut % (Auto) 73.5 % 12/27/22 05:17 Lymph % (Auto) 12.7 % 12/27/22 05:17 [place] % (Auto) 9.4 % 12/27/22 05:17 Eos % (Auto) 3.2 % 12/27/22 05:17 Baso % (Auto) 0.1 % 12/27/22 05:17 Neut # (Auto) 10.11 10^3/uL (1.8-7.7) H 12/27/22 05:17 Lymph # (Auto) 1.8 10^3/uL (0.8-4.8) 12/27/22 05:17 [place] # (Auto) 1.3 10^3/uL (0.2-0.9) H 12/27/22 05:17 Eos # (Auto) 0.4 10^3/uL (0.0-0.8) 12/27/22 05:17 Baso # (Auto) 0.0 10^3/uL (0.0-0.1) 12/27/22 05:17 Nucleated RBC % (auto) 0.3 % 12/27/22 05:17 Nucleated RBCs # 0.0 /100WBC 12/27/22 05:17 Peripher Smr Path Cons Sent for review 12/19/22 05:17 PT 22.90 SECONDS (12.1-14.9) H 12/18/22 20:30 INR 1.94 (0.8-1.2) H 12/18/22 20:30 APTT 34.8 SECONDS (23.9-36.7) D 12/21/22 15:00 Specimen Type Arterial 12/24/22 03:40 Sample Site Radial, right 12/24/22 03:40 ABG pH 7.49 (7.35-7.45) H 12/24/22 03:40 ABG pCO2 33.4 mmHg (35-45) L 12/24/22 03:40 ABG pO2 68.8 mmHg (80.0-100.0) L 12/24/22 03:40 ABG HCO3 25.5 mmol/L (22-26) 12/24/22 03:40 ABG O2 Saturation 98.1 12/23/22 13:38 ABG Base Excess 2.4 mmol/L (-2.0-2.0) H 12/24/22 03:40 Damian Test Pos 12/24/22 03:40 A-a O2 Gradient 11.6 mmHg (5-10) H 12/23/22 13:38 Hematocrit 35.3 % (37-47) L 12/24/22 03:40 Hgb O2 Saturation 96.1 % (95-100) 12/23/22 13:38 Carboxyhemoglobin 1.3 %THgb (0.4-20.1) 12/23/22 13:38 Methemoglobin 0.7 % (0.4-1.5) 12/23/22 13:38 Total Hemoglobin 9.9 g/dL (12-16) L 12/23/22 13:38 Sodium 142.0 mmol/L (131-143) 12/23/22 13:38 Potassium 4.7 mmol/L (3.5-5.0) 12/23/22 13:38 Glucose 280.0 mg/dL (70-115) H 12/23/22 13:38 Ionized Calcium 1.2 mmol/L (1.1-1.4) 12/23/22 13:38 O2 Delivery Device Vent 12/24/22 03:40 FiO2 30.0 % 12/24/22 03:40 Tidal Volume 0.40 12/21/22 05:22 PEEP 5.0 cmH20 12/24/22 03:40 Director Of Brand Marketing ID [email or web address] 12/24/22 03:40 Sodium 134 mmol/L (136-145) L 12/27/22 05:17 Potassium 3.7 mmol/L (3.5-5.1) 12/27/22 05:17 Chloride 104 mmol/L (98-107) 12/27/22 05:17 Carbon Dioxide 22 mmol/L (22-29) 12/27/22 05:17 Anion Gap 11.7 (5-19) 12/27/22 05:17 BUN 16 mg/dL (8-23) 12/27/22 05:17 Creatinine 0.5 mg/dL (0.5-0.9) 12/27/22 05:17 GFR Calculation 122.7 mL/min (90-130) 12/27/22 05:17 Glucose 240 mg/dL (65-115) H 12/27/22 05:17 POC Glucose 212 mg/dL (70-110) H 12/28/22 11:17 Calculated Osmolality 287 mOsm/kg (285-295) 12/27/22 05:17 Lactic Acid 6.3 mmol/L (0.5-2.2) H* 12/18/22 13:32 Lactic Acid (Sepsis) 5.3 mmol/L (0.5-2.2) H* 12/18/22 15:55 Lactate 1.5 mmol/L (0.5-2.2) 12/20/22 05:23 Calcium 7.3 mg/dL (8.5-10.5) L 12/27/22 05:17 Phosphorus 3.3 mg/dL (2.5-4.5) 12/21/22 03:10 Magnesium 1.9 mg/dL (1.7-2.3) 12/21/22 03:10 Total Bilirubin 2.1 mg/dL (0.15-1.2) H 12/27/22 05:17 AST 41 U/L (0-32) H 12/27/22 05:17 ALT 32 U/L (0-33) 12/27/22 05:17 Alkaline Phosphatase 74 U/L (35-105) 12/27/22 05:17 Ammonia 56 umol/L (11-51) H 12/27/22 05:17 Creatine Kinase 193 U/L (26-192) H 12/18/22 13:32 Troponin T Baseline 6 ng/L (0-10) 12/18/22 13:32 Troponin T 120 Minute 81.89 ng/L (0-10) H 12/18/22 15:55 Delta Troponin T 75.89 ABS# (0-10) H* 12/18/22 15:55 Troponin T Hi Sens 6Hr 224.0 ng/L (0-10) H 12/18/22 19:16 Troponin T Hi Sens 6Hr Delta 218.0 ng/L (0-12) H* 12/18/22 19:16 NT-Pro-B Natriuret Pep 669 pg/mL (0-125) H 12/24/22 03:31 Total Protein 6.0 g/dL (6.6-8.7) L 12/27/22 05:17 Albumin 2.1 g/dL (3.5-5.2) L 12/27/22 05:17 Globulin 3.9 g/dL (1.3-4.6) 12/27/22 05:17 Triglycerides 44 mg/dL (0-150) 12/19/22 05:17 Cholesterol 76 mg/dL (0-200) 12/19/22 05:17 LDL Cholesterol, Calc 29 mg/dL (50-129) L 12/19/22 05:17 HDL Cholesterol 38 mg/dL (60-100) L 12/19/22 05:17 LDL/HDL Ratio 0.76 RATIO (0.00-3.22) 12/19/22 05:17 Cholesterol/HDL Ratio 2.00 mg/dL (0.0-4.40) 12/19/22 05:17 Lipase 123 U/L (13-60) H 12/18/22 13:32 TSH 3.87 uIU/mL (0.27-4.20) 12/18/22 19:16 Urine Color Yellow (Yellow) 12/18/22 15:44 Urine Appearance Clear (CLEAR) 12/18/22 15:44 Urine pH 6.5 (5-7) 12/18/22 15:44 Ur Specific [place] 1.015 (1.005-1.030) 12/18/22 15:44 Urine Protein 1+ (Negative) H 12/18/22 15:44 Urine Glucose (UA) Trace (Normal) H 12/18/22 15:44 Urine Ketones Negative (Negative) 12/18/22 15:44 Urine Blood 3+ (Negative) H 12/18/22 15:44 Urine Nitrate Negative (Negative) 12/18/22 15:44 Urine Bilirubin Neg (Negative) 12/18/22 15:44 Urine Urobilinogen 1 mg/dL (Negative) H 12/18/22 15:44 Ur Leukocyte Esterase Not Reportable 12/18/22 15:44 Urine RBC 5-10 /hpf (0-2) H 12/18/22 15:44 Urine WBC 0-4 /hpf (0-5) H 12/18/22 15:44 Ur Squamous Epith Cells 0-4 /hpf (0-5) H 12/18/22 15:44 Amorphous Sediment 1+ /hpf 12/18/22 15:44 Urine Bacteria Not Reportable 12/18/22 15:44 Urine Mucus 1+ /hpf 12/18/22 15:44 Vancomycin Trough 11.5 ug/mL (10-15) 12/25/22 11:48 Salicylates < 0.3 mg/dL (3-10) L 12/18/22 13:32 Urine Opiates Screen Negative ng/mL (Negative) 12/18/22 15:44 Acetaminophen < 5.0 ug/mL (10-30) L 12/18/22 13:32 Ur Barbiturates Screen Negative ng/mL (Negative) 12/18/22 15:44 Ur Phencyclidine Scrn Negative ng/mL (Negative) 12/18/22 15:44 Ur Amphetamines Screen Negative ng/mL (Negative) 12/18/22 15:44 U Benzodiazepines Scrn Negative ng/mL (Negative) 12/18/22 15:44 Urine Cocaine Screen Negative ng/mL (Negative) 12/18/22 15:44 U Marijuana (THC) Screen Negative ng/mL (Negative) 12/18/22 15:44 Ethyl Alcohol < 10 mg/dL (0-10) 12/18/22 13:32 Serum Ketones Negative (Negative) 12/18/22 13:32 Blood Type A Positive 12/21/22 11:30 Rho(D) Type Positive 12/21/22 11:30 Vitals Last Vital Signs Temp 97.6 F 01/01/23 07:14 Pulse 73 01/01/23 07:14 Resp 21 H 01/01/23 07:14 BP 127/76 01/01/23 07:14 Pulse Ox 94 12/31/22 20:58 O2 Del Method Nasal Cannula 12/31/22 20:58 O2 Flow Rate 2 12/31/22 20:21 FiO2 30 12/28/22 16:00 Discharge Plan Discharge Patient Disposition: Hospice - Medical Facility Condition: Critical Prescriptions: Continued aspirin 81 mg tablet,delayed release (DR/EC) 81 mg PO DAILY (DME) FreeStyle Test Strip See Rx Instructions .Route Rx Instructions: As directed (DME) insulin needles (disposable) 30 X 3/4 needle See Rx Instructions .Route Rx Instructions: As directed (DME) blood-glucose meter [FreeStyle [place] Lite] Kit See Rx Instructions .Route Qty: 1 0RF Rx Instructions: As directed (DME) pen needle, diabetic [TechLITE Pen Needle] 31 gauge x 3/16 needle See Rx Instructions .Route Qty: 120 11RF Rx Instructions: uses 4 times daily with insulin 30 day supply (DME) FreeStyle Rox 14 Day Sensor Kit See Rx Instructions .Route Qty: 2 5RF Rx Instructions: As directed biotin 800 mcg tablet 800 mcg PO DAILY isosorbide mononitrate 30 mg tablet extended release 24 hr 30 mg PO DAILY Qty: 90 1RF Tresiba FlexTouch U-200 200 unit/mL (3 mL) insulin pen See Rx Instructions .ROUTE .COMPLEX Qty: 9 2RF Dose Instruction: INJECT 35 UNITS (0.175 ML) UNDER THE SKIN (SUBCUTANOUSLY) DAILY Rx Instructions: INJECT 10 UNITS (0.175 ML) UNDER THE SKIN (SUBCUTANOUSLY) DAILY loratadine 10 mg tablet 10 mg PO DAILY PRN (Reason: Allergy Symptoms) (DME) cane Device See Rx Instructions .Route Qty: 1 0RF Rx Instructions: As directed pantoprazole [Protonix] 40 mg tablet,delayed release (DR/EC) 40 mg PO DAILY Qty: 90 3RF spironolactone 25 mg tablet See Rx Instructions .ROUTE .COMPLEX Qty: 90 2RF Hold Instructions: hypotension Dose Instruction: TAKE ONE-HALF TABLET BY MOUTH DAILY Rx Instructions: TAKE ONE-HALF TABLET BY MOUTH DAILY atorvastatin 40 mg tablet 40 mg PO DAILY Qty: 90 3RF hydroxychloroquine 200 mg tablet 200 mg PO BID Qty: 180 3RF fluticasone propionate [Flonase Allergy Relief] 50 mcg/actuation [place],Suspension 2 spray INTRANASAL DAILY albuterol sulfate 90 mcg/actuation HFA aerosol inhaler 2 inh INHALATION Q4H PRN (Reason: shortness of breath or wheezing) Qty: 18 0RF levothyroxine 175 mcg tablet 175 mcg PO DAILY Rx Instructions: TAKE 1 TABLET BY MOUTH DAILY trazodone 100 mg tablet 100 mg PO BEDTIME fluoxetine 10 mg capsule 10 mg PO DAILY Discharge Orders: Discharge Order (Routine); Ordered 01/01/23 Ordered By: Kenny De León Referrals: [facility] [Outside] [facility] [Outside] Sara Montenegro DO [Primary Care Provider] - Patient Instructions: Hyponatremia (ED), Benzodiazepine Use Disorder (ED), Dementia (ED), Non-diabetic Hypoglycemia (ED), Hypoglycemia in a Person with Diabetes (ED), Concussion (ED), Alcohol Intoxication (ED), Subarachnoid Hemorrhage (GEN), Altered Mental Status (ED), Opioid Safety Activity Restrictions/Additional Instructions: Hospice care Discharge Attestations Time Spent in Discharge Care*: greater than 30 min Specific Discharge Activities: educating and/or supporting family/caregiver, discussing with pcp/other providers, discussing with case therapist/social workers/dc planners, documenting/other paperwork and evaluating patient/reviewing data Status at Discharge: Cognitive status at discharge: severely impaired cognition, Behavioral status at discharge: cooperative, Functional status at discharge: bed bound, Overall status at discharge: patient has a new baseline Quality Metrics Clinical Quality Measures [ Acute Myocardial Infaction { Clinical Trial Participant: No; Contraindication to aspirin: None; Aspirin prescribed; Contraindication to statin: None; Statin prescribed; Contraindication to PCI: Medical contraindication; Contraindication to Fibrinolytics: Adverse reaction to drug}] Coding Level of Care Code 58457 Total time (in minutes) for Discharge: 50 Diagnoses Altered mental status R41.82 Acute non-ST elevation myocardial infarction (NSTEMI) I21.4 Thrombocytopenia D69.6 Acidosis, lactic E87.20 Hypokalemia E87.6 Hypomagnesemia E83.42 Cirrhosis of liver K74.69 Hepatic cirrhosis type: other cirrhosis Nicotine dependence, cigarettes, with unspecified nicotine-induced disorders F17.219 Persistent cognitive impairment R41.89 Cerebellar atrophy G31.9 CVA (cerebrovascular accident due to intracerebral hemorrhage) I61.9 Comfort measures only status Z51.5
[2023-01-01 11:29] LABS: SARS Covid-2 Antigen negative (Negative)
[2023-01-01 11:50] VITALS: BP 127/76; PULSE 73; RESP 21; TEMP 36.4; O2SAT 94
== END 2023-01-01 12:48 | disposition hospice, home (50) | DRG 441 ==
LOC: ER 19:45 → ICU 20:06 → MEDSURG 12-29 13:12
PROVIDERS: Family Medicine; Internal Medicine; Student in an Organized Health Care Education/Training Program; Admitting Provider Internal Medicine; Emergency Provider Emergency Medicine; PCP Family Medicine; Visit Provider Student in an Organized Health Care Education/Training Program
DX: K76.82 Hepatic encephalopathy (principal); I21.4 Non-ST elevation (NSTEMI) myocardial infarction; I50.32 Chronic diastolic (congestive) heart failure; F03.911 Unspecified dementia, unspecified severity, with agitation; F05 Delirium due to known physiological condition; G91.0 Communicating hydrocephalus; E87.20 Acidosis, unspecified; I62.9 Nontraumatic intracranial hemorrhage, unspecified; K72.10 Chronic hepatic failure without coma; I25.10 Atherosclerotic heart disease of native coronary artery without angina pectoris; Z95.5 Presence of coronary angioplasty implant and graft; J44.9 Chronic obstructive pulmonary disease, unspecified; I11.0 Hypertensive heart disease with heart failure; E03.9 Hypothyroidism, unspecified; E11.42 Type 2 diabetes mellitus with diabetic polyneuropathy; D69.6 Thrombocytopenia, unspecified; B95.62 Methicillin resistant Staphylococcus aureus infection as the cause of diseases classified elsewhere; Z51.5 Encounter for palliative care; Z79.82 Long term (current) use of aspirin; Z79.4 Long term (current) use of insulin; Z79.51 Long term (current) use of inhaled steroids; Z79.891 Long term (current) use of opiate analgesic; Z79.899 Other long term (current) drug therapy; M19.90 Unspecified osteoarthritis, unspecified site; F32.A Depression, unspecified; F41.9 Anxiety disorder, unspecified; E78.2 Mixed hyperlipidemia; F17.210 Nicotine dependence, cigarettes, uncomplicated; E87.6 Hypokalemia; E83.42 Hypomagnesemia; K75.81 Nonalcoholic steatohepatitis (NASH); G31.9 Degenerative disease of nervous system, unspecified; K21.9 Gastro-esophageal reflux disease without esophagitis; I95.9 Hypotension, unspecified; R00.1 Bradycardia, unspecified
CPT/HCPCS: 31500; 36415; 36416; 36430; 36556; 36592; 36600; 70450; 71045; 71275; 74177; 80048; 80051; 80053; 80061; 80202; 80306; 80307; 80503; 81001; 82009; 82140; 82330; 82550; 82803; 82805; 82962; 83605; 83690; 83735; 83880; 84100; 84443; 84484; 85025; 85610; 85730; 86900; 87040; 87070; 87077; 87186; 87205; 87426; 93005; 93306; 94002; 94003; 94664; 94799; 96365; 96366; 96367; 96372; 96375; 96376; 97110; 97161; 99291; 99292; C9113; J0330; J0692; J1100; J1630; J1644; J1815; J1956; J2060; J2250; J2270; J2704; J3010; J3370; J3475; J3480; J3490; J7030; J7050; J7060; P9035; P9037; Q9967